=== PATIENT | female | born 1945 | race Caucasian/White ===

== ENCOUNTER 2019-06-30 11:43 | Emergency (ER) | payer MEDICARE ==
[~2019-06-30] VITALS: Ht 162.6 cm; Wt 62.1 kg
--- OUTSIDE RECORDS SUMMARY | ~2019-06-30 | XMS | Encounter Summary ---
Demographics + + + | Address | [address] | | | [place] [address] | + + + | Home Phone | | + + + | Preferred Language | Unknown | + + + | Marital Status | | + + + | Temple Affiliation | [id number] | + + + | Race | Unknown | + + + | Ethnic Group | Unknown | + + + Author + + + | Author | [facility] | | | and [place] | + + + | Organization | [facility] | | | and [place] | + + + | Address | Unknown | + + + | Phone | Unavailable | + + + Support + + +---------+ + | Name | Relationship | Address | Phone | + + +---------+ + | Loyd Mcnair | ECON | Unknown | | + + +---------+ + | Cecile Lemus | ECON | Unknown | | + + +---------+ + Care Team Providers + +------+ + | Care Jet Blade Polisher Name | Role | Phone | + +------+ + | Fabrice Hansen DO | PCP | | + +------+ + Encounter Details +--------+ + + + + | Date | Type | Department | Care Team | Description | +--------+ + + + + | 02/15/ | Orders Only | [facility] | Marshall Gutierrez, | | | 2015 | | CARDIOLOGY SACHIN | [address] | | | | | [address] | [place] [address] | | | | | [facility] | [phone] | | | | | [address] | | | | | | [phone] | | | +--------+ + + + + Social History + +-------+ +--------+------+ | Tobacco Use | Types | Packs/Day | Years | Date | | | | | Used | | + +-------+ +--------+------+ | Never Assessed | | | | | + +-------+ +--------+------+ + + + | Sex Assigned at | Date Recorded | | | | + + + | Not on file | | + + + + + + + | Job Start Date | Occupation | Industry | + + + + | Not on file | Not on file | Not on file | + + + + + + + + | Travel History | Travel Start | Travel End | + + + + + + | No recent travel history available. | + + documented as of this encounter Plan of Treatment +--------+---------+ + + + | Date | Type | Specialty | Care Team | Description | +--------+---------+ + + + | 07/18/ | Office | Cardiology | Erin Limon | | | 2019 | Visit | | [address] | | | | | | [address] | | | | | | [place] [address] | | | | | | [phone] | | | | | | | | +--------+---------+ + + + documented as of this encounter Procedures + +--------+ + + + | Procedure Name | Priori | Date/Time | Associated Diagnosis | Comments | | | ty | | | | + +--------+ + + + | ECHO COMPLETE | Routin | 02/15/2015 | | Results for this | | | e | 11:37 AM | | procedure are in the | | | | PST | | results section. | + +--------+ + + + documented in this encounter Results ECHO Complete (02/15/2015 11:37 AM PST) + + | Specimen | + + | | + + + + + | Impressions | Performed At | + + + | 1. Overall left ventricular systolic function is low-normal with, an | | | EF between 50 - 55 %. 2. The diastolic filling pattern indicates | | | impaired relaxation consistent with mild dysfunction (Grade I), which | | | is normal for the patient's age. 3. The ascending aorta is dilated | | | measuring up to 4.0cm. | | + + + + + + | Narrative | Performed At | + + + | Patient Name: PACHECO ELMUS Date of : 1945 | | | Performing Physician: Marshall Gutierrez MD, | | | FACC, FACP, FASNC | | | | | | INDICATIONS CAD, HTN, CABG x 3 CONCLUSIONS | | | 1. Overall left ventricular systolic function is | | | low-normal with, an EF between 50 - 55 %. 2. The diastolic filling | | | pattern indicates impaired relaxation consistent with mild dysfunction | | | (Grade I), which is normal for the patient's age. 3. The ascending | | | aorta is dilated measuring up to 4.0cm. FINDINGS -------- ECG | | | rhythm: Sinus rhythm with extra systolic beats. Study: A | | | 2-dimensional transthoracic echocardiogram with m-mode, spectral and | | | color flow Doppler was perfomed. Study: This was a technically | | | adequate study. Left Ventricle: Overall left ventricular systolic | | | function is low-normal with, an EF between 50 - 55 %. Left Ventricle: | | | The left ventricle cavity size is normal. Left Ventricle: Left | | | ventricular wall thickness is normal. Left Ventricle: There is mild | | | global hypokinesis of LV contractility. Left Ventricle: The diastolic | | | filling pattern indicates impaired relaxation consistent with mild | | | dysfunction (Grade I), which is normal for the patient's age. Left | | | Ventricle: The basal lateral wall appears hypokinetic. Right | | | Ventricle: The right ventricle is normal in size. Left Atrium: The | | | left atrium is normal in size. Right Atrium: The right atrium is | | | normal in size. Aortic Valve: The aortic valve is trileaflet and | | | appears structurally normal. Aortic Valve: Trace amount of aortic | | | regurgitation. Aortic Valve: There is no evidence of aortic stenosis. | | | Mitral Valve: The mitral valve is normal. Mitral Valve: There is | | | trace mitral regurgitation. Tricuspid Valve: The tricuspid valve | | | appears structurally normal. Tricuspid Valve: Trace tricuspid | | | regurgitation present. Tricuspid Valve: There is no evidence of | | | pulmonary hypertension. Tricuspid Valve: The right ventricular | | | systolic pressure (pulmonary artery systolic pressure), as measured by | | | Doppler, is 24.79mmHg. Pulmonic Valve: The pulmonic valve is normal. | | | Pulmonic Valve: Mild pulmonic regurgitation. Pericardium: There is | | | no pericardial effusion. IVC/Hepatic Veins: The IVC is normal size | | | (1.5-2.5cm) and collapses >50% with sniff, consistent with central | | | venous pressures of 5-10mmHg. Aorta: The ascending aorta is dilated | | | measuring up to 4.0cm. Mass: No mass visualized Thrombus: No clot | | | visualized Thrombus: No vegetation visualized. Septum: No ASD | | | observed. Septum: No VSD observed. MEASUREMENTS | | | Ao asc: 3.99 cm IVC: 1.61 cm LA Major: 4.45 cm EDV(Teich): | | | 137.16 ml IVSd: 0.84 cm LVIDd: 5.33 cm LVPWd: 0.71 cm | | | LVOT Area: 4.11 cm2 LVOT Diam: 2.28 cm %FS: 23.11 % | | | EF(Teich): 45.92 % ESV(Teich): 74.16 ml LVIDs: 4.09 cm | | | SV(Teich): 62.99 ml RA Major: 4.75 cm RVIDd: 2.66 cm LVEF | | | MOD A2C: 52.30 % SV MOD A2C: 37.22 ml LVEF MOD A4C: 49.25 % | | | SV MOD A4C: 43.26 ml EF Biplane: 50.31 % LVEDV MOD BP: | | | 79.22 ml LVESV MOD BP: 39.36 ml LVEDV MOD A2C: 71.16 ml LVLd | | | A2C: 7.03 cm LVEDV MOD A4C: 87.84 ml LVLd A4C: 7.12 cm | | | LVESV MOD A2C: 33.94 ml LVLs A2C: 6.33 cm LVESV MOD A4C: | | | 44.57 ml LVLs A4C: 6.38 cm LAESV(A-L): 45.89 ml LAESV Index | | | (A-L): 27.48 ml/m2 LAAs A2C: 14.95 cm2 LAESV A-L A2C: 41.36 | | | ml LALs A2C: 4.58 cm LAAs A4C: 16.21 cm2 LAESV A-L A4C: | | | 49.75 ml LALs A4C: 4.48 cm Ao Diam: 3.05 cm LA Diam: 3.08 | | | cm LA/Ao: 1.01 AV maxP.05 mmHg AV meanP.82 mmHg | | | AV Vmax: 1.41 m/s AV Vmean: 0.91 m/s AV VTI: 27.43 cm AVIVA | | | Vmax: 2.60 cm2 AVIVA (VTI): 2.72 cm2 LVOT maxP.22 mmHg | | | LVOT meanP.64 mmHg LVSI Dopp: 44.72 ml/m2 LVSV Dopp: | | | 74.69 ml LVOT Vmax: 0.89 m/s LVOT Vmean: 0.58 m/s LVOT VTI: | | | 18.15 cm IVRT: 117.64 ms MV A Zen: 0.70 m/s MV Dec Arroyo: | | | 2.68 m/s2 MV DecT: 211.45 ms MV E Zen: 0.56 m/s MV E/A | | | Ratio: 0.80 MV PHT: 61.32 ms MVA By PHT: 3.58 cm2 Septal | | | e': 0.04 m/s Septal E/e': 11.65 Lateral e': 0.08 m/s | | | Lateral E/e': 7.06 RAP: 5 mmHg RVSP: 24.78 mmHg TR maxPG: | | | 19.78 mmHg TR Vmax: 2.22 m/s Pbx Teacher: JOSY Authenticated | | | by: Marshall Gutierrez MD, FACC, FACP, FASFL Report Date/Time: | | | 02-19-2015 13:07:05 | | + + + + + | Procedure Note | + + | Jamie Kowalski Conversion - 09/30/2018 8:30 PM PDT Patient Name: Kailash LEMUS of | | : 1945 Performing Physician: Marshall Gutierrez MD, [facility], | | FACP, | | FASNC INDICATIONS--------- | | --CAD, HTN, CABG x 3 CONCLUSIONS 1. Overall left ventricular systolic function | | is low-normal with, an EF between 50 - 55 %.2. The diastolic filling pattern indicates | | impaired relaxation consistent with mild dysfunction (Grade I), which is normal for the | | patient's age.3. The ascending aorta is dilated measuring up to 4.0cm. | | FINDINGS--------ECG rhythm: Sinus rhythm with extra systolic beats.Study: A | | 2-dimensional transthoracic echocardiogram with m-mode, spectral and color flow Doppler | | was perfomed.Study: This was a technically adequate study.Left Ventricle: Overall left | | ventricular systolic function is low-normal with, an EF between 50 - 55 %.Left | | Ventricle: The left ventricle cavity size is normal.Left Ventricle: Left ventricular | | wall thickness is normal.Left Ventricle: There is mild global hypokinesis of LV | | contractility.Left Ventricle: The diastolic filling pattern indicates impaired | | relaxation consistent with mild dysfunction (Grade I), which is normal for the patient's | | age.Left Ventricle: The basal lateral wall appears hypokinetic.Right Ventricle: The | | right ventricle is normal in size.Left Atrium: The left atrium is normal in size.Right | | Atrium: The right atrium is normal in size.Aortic Valve: The aortic valve is trileaflet | | and appears structurally normal.Aortic Valve: Trace amount of aortic | | regurgitation.Aortic Valve: There is no evidence of aortic stenosis.Mitral Valve: The | | mitral valve is normal.Mitral Valve: There is trace mitral regurgitation.Tricuspid | | Valve: The tricuspid valve appears structurally normal.Tricuspid Valve: Trace tricuspid | | regurgitation present.Tricuspid Valve: There is no evidence of pulmonary | | hypertension.Tricuspid Valve: The right ventricular systolic pressure (pulmonary artery | | systolic pressure), as measured by Doppler, is 24.79mmHg.Pulmonic Valve: The pulmonic | | valve is normal.Pulmonic Valve: Mild pulmonic regurgitation.Pericardium: There is no | | pericardial effusion.IVC/Hepatic Veins: The IVC is normal size (1.5-2.5cm) and collapses | | >50% with sniff, consistent with central venous pressures of 5-10mmHg.Aorta: The | | ascending aorta is dilated measuring up to 4.0cm.Mass: No mass visualizedThrombus: No | | clot visualizedThrombus: No vegetation visualized.Septum: No ASD observed.Septum: No VSD | | observed. MEASUREMENTS Ao asc: 3.99 cmIVC: 1.61 cmLA Major: 4.45 | | cmEDV(Teich): 137.16 mlIVSd: 0.84 cmLVIDd: 5.33 cmLVPWd: 0.71 cmLVOT Area: | | 4.11 [id number] Diam: 2.28 cm%FS: 23.11 %EF(Teich): 45.92 %ESV(Teich): 74.16 | | mlLVIDs: 4.09 cmSV(Teich): 62.99 mlRA Major: 4.75 cmRVIDd: 2.66 cmLVEF MOD A2C: | | 52.30 %SV MOD A2C: 37.22 mlLVEF MOD A4C: 49.25 %SV MOD A4C: 43.26 mlEF Biplane: | | 50.31 %LVEDV MOD BP: 79.22 mlLVESV MOD BP: 39.36 mlLVEDV MOD A2C: 71.16 mlLVLd | | A2C: 7.03 cmLVEDV MOD A4C: 87.84 mlLVLd A4C: 7.12 cmLVESV MOD A2C: 33.94 mlLVLs | | A2C: 6.33 cmLVESV MOD A4C: 44.57 mlLVLs A4C: 6.38 cmLAESV(A-L): 45.89 mlLAESV | | Index (A-L): 27.48 ml/m2LAAs A2C: 14.95 [id number] A-L A2C: 41.36 mlLALs A2C: 4.58 | | cmLAAs A4C: 16.21 [id number] A-L A4C: 49.75 mlLALs A4C: 4.48 cmAo Diam: 3.05 cmLA | | Diam: 3.08 cmLA/Ao: 1.01AV maxP.05 mmHgAV meanP.82 mmHgAV Vmax: 1.41 | | m/Yamila Vmean: 0.91 m/Yamila VTI: 27.43 cmAVA Vmax: 2.60 cm2AVA (VTI): 2.72 [id number] | | maxP.22 mmHgLVOT meanP.64 mmHgLVSI Dopp: 44.72 ml/m2LVSV Dopp: 74.69 | | mlLVOT Vmax: 0.89 m/sLVOT Vmean: 0.58 m/sLVOT VTI: 18.15 cmIVRT: 117.64 msMV A | | Zen: 0.70 m/sMV Dec Arroyo: 2.68 m/s2MV DecT: 211.45 msMV E Zen: 0.56 m/sMV E/A | | Ratio: 0.80MV PHT: 61.32 msMVA By PHT: 3.58 kw2Wfysay e': 0.04 m/sSeptal E/e': | | 11.65Lateral e': 0.08 m/sLateral E/e': 7.06RAP: 5 mmHgRVSP: 24.78 mmHgTR maxPG: | | 19.78 mmHgTR Vmax: 2.22 m/s Pbx Teacher: DHAuthenticated by: Marshall Gutierrez MD, | | FACC, FACP, FASNCReport Date/Time: 02-19-2015 13:07:05 IMPRESSION: 1. Overall left | | ventricular systolic function is low-normal with, an EF between 50 - 55 %.2. The | | diastolic filling pattern indicates impaired relaxation consistent with mild dysfunction | | (Grade I), which is normal for the patient's age.3. The ascending aorta is dilated | | measuring up to 4.0cm. | |Ao asc: 3.99 cm | |IVC: 1.61 cm | |LA Major: 4.45 cm | |EDV(Teich): 137.16 ml | |IVSd: 0.84 cm | |LVIDd: 5.33 cm | |LVPWd: 0.71 cm | |LVOT Area: 4.11 cm2 | |LVOT Diam: 2.28 cm | |%FS: 23.11 % | |EF(Teich): 45.92 % | |ESV(Teich): 74.16 ml | |LVIDs: 4.09 cm | |SV(Teich): 62.99 ml | |RA Major: 4.75 cm | |RVIDd: 2.66 cm | |LVEF MOD A2C: 52.30 % | |SV MOD A2C: 37.22 ml | |LVEF MOD A4C: 49.25 % | |SV MOD A4C: 43.26 ml | |EF Biplane: 50.31 % | |LVEDV MOD BP: 79.22 ml | |LVESV MOD BP: 39.36 ml | |LVEDV MOD A2C: 71.16 ml | |LVLd A2C: 7.03 cm | |LVEDV MOD A4C: 87.84 ml | |LVLd A4C: 7.12 cm | |LVESV MOD A2C: 33.94 ml | |LVLs A2C: 6.33 cm | |LVESV MOD A4C: 44.57 ml | |LVLs A4C: 6.38 cm | |LAESV(A-L): 45.89 ml | |LAESV Index (A-L): 27.48 ml/m2 | |LAAs A2C: 14.95 cm2 | |LAESV A-L A2C: 41.36 ml | |LALs A2C: 4.58 cm | |LAAs A4C: 16.21 cm2 | |LAESV A-L A4C: 49.75 ml | |LALs A4C: 4.48 cm | |Ao Diam: 3.05 cm | |LA Diam: 3.08 cm | |LA/Ao: 1.01 | |AV maxP.05 mmHg | |AV meanP.82 mmHg | |AV Vmax: 1.41 m/s | |AV Vmean: 0.91 m/s | |AV VTI: 27.43 cm | |AVIVA Vmax: 2.60 cm2 | |AVIVA (VTI): 2.72 cm2 | |LVOT maxP.22 mmHg | |LVOT meanP.64 mmHg | |LVSI Dopp: 44.72 ml/m2 | |LVSV Dopp: 74.69 ml | |LVOT Vmax: 0.89 m/s | |LVOT Vmean: 0.58 m/s | |LVOT VTI: 18.15 cm | |IVRT: 117.64 ms | |MV A Zen: 0.70 m/s | |MV Dec Arroyo: 2.68 m/s2 | |MV DecT: 211.45 ms | |MV E Zen: 0.56 m/s | |MV E/A Ratio: 0.80 | |MV PHT: 61.32 ms | |MVA By PHT: 3.58 cm2 | |Septal e': 0.04 m/s | |Septal E/e': 11.65 | |Lateral e': 0.08 m/s | |Lateral E/e': 7.06 | |RAP: 5 mmHg | |RVSP: 24.78 mmHg | |TR maxP.78 mmHg | |TR Vmax: 2.22 m/s | | | |Pbx Teacher: | |Authenticated by: Marshall Gutierrez MD, FACC, FACP, FASYVROSE | |Report Date/Time: 02-19-2015 13:07:05 | | | |IMPRESSION: | |1. Overall left ventricular systolic function is low-normal with, an EF between 50 - 55 %. | |2. The diastolic filling pattern indicates impaired relaxation consistent with mild dysfunc tion (Grade I), which is normal for the patient's age. | |3. The ascending aorta is dilated measuring up to 4.0cm. | + + documented in this encounter Visit Diagnoses Not on filedocumented in this encounter"
--- OUTSIDE RECORDS SUMMARY | ~2019-06-30 | XMS | Encounter Summary ---
Demographics + + + | Address | [address] | | | [place] [address] | + + + | Home Phone | | + + + | Preferred Language | Unknown | + + + | Marital Status | | + + + | Taoism Affiliation | 1041 | + + + | Race | Unknown | + + + | Ethnic Group | Unknown | + + + Author + + + | Author | [facility] | | | and [place] | + + + | Organization | [facility] | | | and [place] | + + + | Address | Unknown | + + + | Phone | Unavailable | + + + Support + + +---------+ + | Name | Relationship | Address | Phone | + + +---------+ + | Loyd Mcnair | ECON | Unknown | | + + +---------+ + | Cecile Way | ECON | Unknown | | + + +---------+ + Care Team Providers + +------+ + | Care Candle Molder Hand Name | Role | Phone | + +------+ + | Fabrice Hansen DO | PCP | | + +------+ + Reason for Referral Evaluate & Treat (Routine) + + + + + + + | Status | Reason | Specialty | Diagnoses / | Referred By | Referred To | | | | | Procedures | Contact | Contact | + + + + + + + | Pending | Specialty | Liver and | Diagnoses | Tammi, | Tom Limon | | Review | Services | Pancreas | | MD Jason | MD Carly [address] | | | Required | Surgery | Intrahepatic | [address] [place] | | | | | bile duct | [address] [place] [address] | [address] | | | | | stones | [place], | [place] | | | | | Procedures | [place] [address] | [address] Phone: | | | | | [employer] | Phone: | [phone] | | | | | | [phone] | Fax: | | | | | | Fax: | [phone] | | | | | | [phone] | | + + + + + + + Reason for Visit Auth/Cert +--------+--------+ + + + + | Status | Reason | Specialty | Diagnoses / | Referred By | Referred To | | | | | Procedures | Contact | Contact | +--------+--------+ + + + + | | | | Diagnoses | | Serrao, | | | | | Calculus of | | MD Bacilio | | | | | bile duct | | [address] | | | | | with | | [place] [address] | | | | | cholangitis | | [place] | | | | | and | | [address] Phone: | | | | | obstruction, | | [phone] | | | | | unspecified | | Fax: | | | | | cholangitis | | [phone] | | | | | acuity | | | | | | | Intrahepatic | | | | | | | bile duct | | | | | | | dilation | | | | | | | Calculus of | | | | | | | bile duct | | | | | | | with | | | | | | | cholangitis | | | | | | | and | | | | | | | obstruction, | | | | | | | unspecified | | | | | | | cholangitis | | | | | | | acuity | | | | | | | [K80.31]Intr | | | | | | | ahepatic | | | | | | | bile duct | | | | | | | dilation | | | | | | | [K83.8] | | | | | | | Procedures | | | | | | | ME ERCP DX | | | | | | | COLLECTION | | | | | | | SPECIMEN | | | | | | | BRUSHING/WAS | | | | | | | THALIA ME | | | | | | | ANESTHESIA | | | | | | | UPPER GI | | | | | | | ENDOSCOPIC | | | | | | | PX NOS | | | | | | | ENDOSCOPIC | | | | | | | RETROGRADE | | | | | | | CHOLANGIOPAN | | | | | | | REATOG | | | +--------+--------+ + + + + Encounter Details +--------+ + + + + | Date | Type | Department | Care Team | Description | +--------+ + + + + | 12/31/ | Hospital | [facility] | Jason Cadena MD | Intrahepatic bile | | 2019 - | Encounter | [facility] | [address] [place] | duct stones (Primary | | | | NEPHROLOGY [address] | [address] [place] | Dx); Intrahepatic | | 01/01/ | | [address] [place] | [address] | bile duct dilation; | | 2019 | | [address] | | Calculus of bile | | | | [phone] | Arminda Cruz MD | duct with | | | | | [address] | cholangitis and | | | | | [address] [place] | obstruction, | | | | | [address] | unspecified | | | | | | cholangitis acuity; | | | | | Robbie Ho MD | Chronic obstructive | | | | | [address] | pulmonary disease, | | | | | [address] [place] | unspecified COPD | | | | | [address] | type (HCC); Coronary | | | | | | artery disease | | | | | | involving council | | | | | | coronary artery of | | | | | | council heart, angina | | | | | | presence | | | | | | unspecified | +--------+ + + + + Social History + + + +--------+------+ | Tobacco Use | Types | Packs/Day | Years | Date | | | | | Used | | + + + +--------+------+ | Current Every Day | Cigarettes | 0.5 | 25 | | | Smoker | | | | | + + + +--------+------+ + +---+---+---+ | Smokeless Tobacco: | | | | | Never Used | | | | + +---+---+---+ + + +---------+ + | Alcohol Use | Drinks/Week | oz/Week | Comments | + + +---------+ + | Yes | 3 Glasses of wine | 3.0 | | + + +---------+ + + + + | Sex Assigned at [...] + + documented as of this encounter Last Filed Vital Signs + + + + + | Vital Sign | Reading | Time Taken | Comments | + + + + + | Blood Pressure | 101/62 | 01/01/2019 8:00 AM | | | | | PST | | + + + + + | Pulse | 53 | 01/01/2019 8:00 AM | | | | | PST | | + + + + + | Temperature | 36.8 C (98.2 F) | 01/01/2019 8:00 AM | | | | | PST | | + + + + + | Respiratory Rate | 16 | 01/01/2019 8:00 AM | | | | | PST | | + + + + + | Oxygen Saturation | 98% | 01/01/2019 8:00 AM | | | | | PST | | + + + + + | Inhaled Oxygen | - | - | | | Concentration | | | | + + + + + | Weight | 60.6 kg (133 lb 9.6 | 12/31/2018 7:29 AM | | | | oz) | PST | | + + + + + | Height | 162.6 cm (5' 4") | 12/31/2018 7:29 AM | | | | | PST | | + + + + + | Body Mass Index | 22.93 | 12/31/2018 7:29 AM | | | | | PST | | + + + + + documented in this encounter Discharge Summaries Robbie Ho MD - 01/01/2019 12:16 PM PST [facility] Patient: Sharon Way Date of : 1945 PCP: Fabrice Hansen DO Admit Date: 12/31/2018 Discharge Date: 01/01/2019 Date of Service: 01/01/2019 Issues Requiring Follow Up after Discharge: Needs follow up with - hepatobiliary surgeon Follow Up Appointments: Fabrice Hansen DO [address] [facility] [address] [facility] [address] Call As needed Tom Limon MD [address], [place] [address] [facility] [phone] Schedule an appointment as soon as possible for a visit in 2 weeks Discharge Disposition: Home Consultants This Admission: [facility] Course: Sharon Way is a 73 y.o. female with a history of CAD, COPD, who had ERCP with stent placed 11/09/18 for choledocholithiasis. Her postprocedure course was complicated by cholan gitis. She is again admitted on 12/31/2018 following ERCP with stent removal. Pt is feeling better. She will going home today and she will follow up with for partial liver res ection Discharge Diagnoses: 1. Calculus of bile duct with cholangitis/obstruction: Status post stent removal by Dr. Phoebe cerda with stone removal using balloon sweep. There is still one more branch of left intrahep atic biliary ducts with stones and a tight stricture that could not be cannulated so patient will need a referral to Dr. Limon for possible left hepatectomy. -She is tolerating full diet. She will continue ciprofloxacin for lunch at this prophylaxi s. COPD/CAD: stable. Active Hospital Problems Diagnosis Calculus of bile duct with cholangitis and obstruction, unspecified cholangitis acuity Intrahepatic bile duct dilation COPD CAD (coronary artery disease) Resolved Hospital Problems No resolved problems to display. Discharge Exam: Temp: [35.9 C (96.6 F)-36.8 C (98.2 F)] 36.8 C (98.2 F) Pulse: [53-70] 53 Resp: [16] 16 BP: (101-119)/(52-73) 101/62 SpO2: 98 % on room air Physical Exam General: Afebrile, not in respir Neck: Normal range of motion; no thyromegaly or tenderness. No JVD. Lymphatic: No cervical or supraclavicular adenopathy appreciated. Cardiovascular: S1, S2 normal. No S3,S3 or gallops. No murmurs. Thorax & Lungs: lungs clear to auscultation. Abdomen: Soft, non-tender. Extremities: No peripheral edema. Skin: Clean, warm, dry. Neurologic: Hearing and vision both grossly intact. Discharge Medications: Discharge Medications New Medications Details ciprofloxacin 500 mg tablet Take 1 tablet by mouth 2 times daily for 5 days. aka: CIPRO HYDROcodone-acetaminophen 5-325 mg per tablet Take 1 tablet by mouth every 6 hours as needed for Pain for up to 3 days. aka: NORCO Unchanged Medications Details acetaminophen 500 mg tablet Take 500 mg by mouth every 6 hours as needed for Pain. aka: TYLENOL albuterol 90 mcg/puff inhaler Inhale 2 puffs into the lungs every 6 hours as needed for Wheezing. aspirin 81 mg chewable tablet Take 81 mg by mouth daily with breakfast. atorvaSTATin 40 mg tablet Take 40 mg by mouth Daily. aka: LIPITOR fluticasone 50 mcg/nasal spray 1 spray by Nasal route Twice daily as needed for Allergies. aka: FLONASE levothyroxine 50 mcg tablet Take 50 mcg by mouth every morning (before breakfast). aka: SYNTHROID lisinopril 10 mg tablet Take 10 mg by mouth Daily. aka: PRINIVIL, ZESTRIL nitroglycerin 0.[address] 0.4 mg under the tongue every 5 minutes as needed for Chest pain. aka: NITROSTAT pantoprazole 40 mg tablet Take 40 mg by mouth every morning (before breakfast). aka: PROTONIX traZODone 150 MG tablet Take 75-150 mg by mouth nightly. Mostly takes 75 mg aka: DESYREL triamcinolone 0.025% ointment Apply 0.025 Units topically as needed for Rash. aka: KENALOG venlafaxine 75 MG tablet Take 225 mg by mouth Daily. aka: EFFEXOR Procedures Performed This Admission: ERCP by Dr. Cadena: Impression: 1. Choledocholithiasis status post removal using balloon sweeps 2. Successful stent removal 3. Direct cholangioscopy showed normal right intrahepatic ducts and most of the left intrahepatics ducts except for one branch with stones with a tight stricture at 90 degree angulation from the intrahepatic duct branch, therefore cholangioscope all wire cannulation cannot be performed Pertinent Lab and Imaging Results: Chemistry: Lab Results Component Value Date NA 140 01/01/2019 K 3.9 01/01/2019 CL 105 01/01/2019 CO2 25 01/01/2019 GLU 100 (H) 01/01/2019 ANIONGAP 10 01/01/2019 BUN 15 01/01/2019 CREA 0.66 01/01/2019 CALCIUM 8.9 01/01/2019 Lipids: Lab Results Component Value Date CHOL 152 12/28/2018 TRIG 115 12/28/2018 HDL 47 12/28/2018 LDL 82 12/28/2018 Hematology: Lab Results Component Value Date ALBUMIN 3.6 01/01/2019 EGFR 89 (L) 01/01/2019 WBC 8.35 01/01/2019 RBC 3.43 (L) 01/01/2019 HGB 11.2 (L) 01/01/2019 HCT 33.3 (L) 01/01/2019 MCV 97.1 01/01/2019 MCH 32.7 01/01/2019 MCHC 33.6 01/01/2019 PLT 227 01/01/2019 Immunology/ Serology: No results found for: CMVIGG, EBVVCAIGG, EBVVCAIGM, EBVIGGEARLY, EBVNUCAG, HSVIIGGTS, HSVII TS, HSVIGMAB Urinary Analysis: Lab Results Component Value Date CLARITYUA CLEAR 11/16/2018 GLUCOSEU NEGATIVE 11/16/2018 NITRITEUA NEGATIVE 11/16/2018 WBCUA 0-2 11/16/2018 RBCUA 3-5 11/16/2018 BACTERIAUA NONE SEEN 11/16/2018 SQUAMEPIUA 6-10 11/16/2018 MUCUSUA 1+ 11/16/2018 Condition at Discharge: Fair Time Spent on Discharge: less than 30 minutes Electronically signed by: Robbie Ho MD 01/01/2019 12:16 PM Portions of this chart may have been created with trinket voice recognition software. Occasi onal wrong-word or sound-alike substitutions may have occurred due to the inherent conroy itations of voice recognition software. Please read the chart carefully and recognize, using context, where these substitutions have occurred documented in this enc ounter Discharge Instructions Instructions Robbie Ho MD - 01/01/2019Please follow up with your PCP in a week. You will be called with appointment with next week. If you do not hear from them phoebe holder call [phone]. Return to ER if symtopms get worse. documented in this encounter Medications at Time of Discharge + + + +---------+ + + | Medication | Sig | Dispensed | Refills | Start | End Date | | | | | | Date | | + + + +---------+ + + | acetaminophen | Take 500 mg by mouth | | 0 | | | | (TYLENOL) 500 mg | every 6 hours as | | | | | | tablet | needed for Pain. | | | | | + + + +---------+ + + | albuterol 90 | Inhale 2 puffs into | | 0 | | | | mcg/puff inhaler | the lungs every 6 | | | | | | | hours as needed for | | | | | | | Wheezing. | | | | | + + + +---------+ + + | aspirin 81 mg | Take 81 mg by mouth | | 0 | 09/29/19 | | | chewable tablet | daily with | | | 13 | | | | breakfast. | | | | | + + + +---------+ + + | fluticasone | 1 spray by Nasal | | 0 | | | | (FLONASE) 50 | route Twice daily | | | | | | mcg/nasal spray | as needed for | | | | | | | Allergies. | | | | | + + + +---------+ + + | lisinopril | Take 10 mg by mouth | | 0 | 06/02/19 | | | (PRINIVIL, ZESTRIL) | Daily. | | | 19 | | | 10 mg tablet | | | | | | + + + +---------+ + + | nitroglycerin | Place 0.4 mg under | | 0 | 12/09/19 | | | (NITROSTAT) 0.4 mg | the tongue every 5 | | | 18 | | | SL tablet | minutes as needed | | | | | | | for Chest pain. | | | | | + + + +---------+ + + | traZODone | Take 75-150 mg by | | 0 | 07/27/19 | | | (DESYREL) 150 MG | mouth nightly. | | | 19 | | | tablet | Mostly takes 75 mg | | | | | + + + +---------+ + + | triamcinolone | Apply 0.025 Units | | 0 | 12/09/19 | | | (KENALOG) 0.025% | topically as needed | | | 18 | | | ointment | for Rash. | | | | | + + + +---------+ + + | atorvaSTATin | Take 40 mg by mouth | | 0 | 09/12/19 | | | (LIPITOR) 40 mg | Daily. | | | 19 | 0 | | tablet | | | | | | + + + +---------+ + + | ciprofloxacin | Take 1 tablet by | 10 | 0 | 01/01/20 | | | (CIPRO) 500 mg | mouth 2 times daily | tablet | | 19 | 9 | | tablet | for 5 days. | | | | | + + + +---------+ + + | | Take 1 tablet by | 12 | 0 | 01/01/20 | | | HYDROcodone-acetamin | mouth every 6 hours | tablet | | 19 | 9 | | ophen (NORCO) 5-325 | as needed for Pain | | | | | | mg per tablet | for up to 3 days. | | | | | + + + +---------+ + + | levothyroxine | Take 50 mcg by mouth | | 0 | | | | (SYNTHROID) 50 mcg | every morning | | | | 0 | | tablet | (before breakfast). | | | | | + + + +---------+ + + | pantoprazole | Take 40 mg by mouth | | 0 | | | | (PROTONIX) 40 mg | every morning | | | | 0 | | tablet | (before breakfast). | | | | | + + + +---------+ + + | venlafaxine | Take 225 mg by mouth | | 0 | 08/05/19 | | | (EFFEXOR) 75 MG | Daily. | | | 19 | 0 | | tablet | | | | | | + + + +---------+ + + documented as of this encounter Progress Notes Cecile Vargas RN - 12/31/2018 11:17 PM PSTA&OX4, admitted due for ERCP with stent removal. Here for pain control. Tolerating clear liquid diet. PRN dilaudid 0.25mg X1 for epigastric pain. Denies nausea. RT PIV, SL. Up with SBA with cane. VSS. Will continue to monitor.Electr onically signed by Cecile Noel RN at 12/31/2018 11:19 PM Belinda Best, Nursing Stude nt - 12/31/2018 6:39 PM PSTAssumed care of patient at 1600. A/O X4. ERCP preformed, 4 stone s and common bile duct stent removed. Patient was to be discharged home but dilaudid was not controlling pain. Currently no complaints of being light headed or nauseous and pain is man aged. Med locked. SBA, uses cane at home. Significant other was attentive at bedside. Now s tracee at the [facility]. Electronically signed by: Belinda Galan, Traffic Incident Management Manager 12/31 6:47 PM Sara Lloyd RN - 12/31/2018 4:45 PM PSTAdmission screen completed by Brigitte MORIN. Report handoff given to MIKEL Bates. Brigitte RN has completed admission flow sheet except for shift assessment, fall risk, stacie assessment. Information for admission documentation was received from the patient. 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 She has some issues getting up the one stai r into her home due to hip pain and she recently started using a single point cane. She repo rts that she is independent with all ADL's. She lives with her and feels like most o f her needs are met except for some basic housekeeping things. She is wanting to quit smokin g but it is "too expensive" per the pt. Her , Loyd, has already picked up discharge p rescriptions. She normally uses partial dentures that she left at home. documented in this encounter Plan of Treatment +--------+---------+ + + + | Date | Type | Specialty | Care Team | Description | +--------+---------+ + + + | 07/18/ | Office | Cardiology | Erin Limon | | | 2019 | Visit | | [facility] [address] | | | | | | [address] | | | | | | [place] [address] | | | | | | [phone] | | | | | | | | +--------+---------+ + + + + + +--------+ + + | Name | Type | Priori | Associated Diagnoses | Order Schedule | | | | ty | | | + + +--------+ + + | * [facility] [place] Liver and | Outpatient | Routin | Intrahepatic bile | Ordered: 12/31/2018 | | Pancreas Surgery - | Referral | e | duct stones | | | Limon Referral | | | | | + + +--------+ + + documented as of this encounter Procedures + +--------+ + + + | Procedure Name | Priori | Date/Time | Associated Diagnosis | Comments | | | ty | | | | + +--------+ + + + | CBC WITH | Routin | 01/01/2019 | | Results for this | | DIFFERENTIAL | e | 4:47 AM | | procedure are in the | | | | PST | | results section. | + +--------+ + + + | COMPREHENSIVE | Routin | 01/01/2019 | | Results for this | | METABOLIC PANEL | e | 4:47 AM | | procedure are in the | | | | PST | | results section. | + +--------+ + + + | FL ERCP BILIARY ONLY | Routin | 12/31/2018 | Calculus of bile | Results for this | | | e | 9:46 AM | duct with | procedure are in the | | | | PST | cholangitis and | results section. | | | | | obstruction, | | | | | | unspecified | | | | | | cholangitis acuity | | + +--------+ + + + | ME ERCP DX | Routin | 12/31/2018 | | Results for this | | COLLECTION SPECIMEN | e | 8:54 AM | | procedure are in the | | BRUSHING/WASHING | | PST | | results section. | + +--------+ + + + | ENDOSCOPIC | | 12/31/2018 | Calculus of bile | | | RETROGRADE | | 8:46 AM | duct with | | | CHOLANGIOPANREATOG | | PST | cholangitis and | | | | | | obstruction, | | | | | | unspecified | | | | | | cholangitis acuity | | | | | | Intrahepatic bile | | | | | | duct dilation | | + +--------+ + + + +---+--------+ | | | | | Specia | | | l | | | Needs | | | RAD, | | | [place] | +---+--------+ + +--------+ +---+ + | POC GLUCOSE | Routin | 12/31/2018 | | Results for this | | | e | 7:40 AM | | procedure are in the | | | | PST | | results section. | + +--------+ +---+ + documented in this encounter Results Comprehensive Metabolic Panel (01/01/2019 4:47 AM PST) + + + + + + | Component | Value | Ref Range | Performed | Pathologist | | | | | At | Signature | + + + + + + | Na | 140 | 135 - 145 | [facility] | | | | | mmol/L | [facility] | | | | | [facility] | | | | | | [facility] | | | | | | [facility] | | | | | | LABORATORY | | | | | | [facility] | | + + + + + + | K | 3.9 | 3.5 - 5.0 | [facility] | | | | | mmol/L | [facility] | | | | | | [facility] | | | | | | [facility] | | | | | | C[facility] | | | | | | LABORATORY | | | | | | [facility] | | + + + + + + | Cl | 105 | 99 - 109 mmol/L | [facility] | | | | | | [facility] | | | | | [facility] | | | | | | [facility] | | | | | | C[facility] | | | | | | LABORATORY | | | | | | [facility] | | + + + + + + | CO2 | 25 | 21 - 28 mmol/L | [facility] | | | | | | [facility] | | | | | [facility] | | | | | | [facility] | | | | | | CENTER | | | | | | LABORATORY | | | | | | [facility] | | + + + + + + | Calcium | 8.9 | 8.5 - 10.2 | [facility] | | | | | mg/dL | [facility] | | | | | | [facility] | | | | | | [facility] | | | | | | CENTER | | | | | | LABORATORY | | | | | | [facility] | | + + + + + + | Anion Gap | 10 | 5 - 16 mmol/L | [facility] | | | | | | [facility] | [facility] | [facility] | | | | | | [facility] | | | | | | [facility] | | | | | | LABORATORY | | | | | | [facility] | | + + + + + + | Albumin | 3.6 | 3.3 - 4.8 g/dL | [facility] | | | | | | [facility] | | [facility] | | [facility] | | | | | | [facility] | | | | | | CENTER | | | | | | LABORATORY | | | | | | [facility] | | + + + + + + | BUN | 15 | 8 - 25 mg/dL | [facility] | | | | | | [facility] | | [facility] | | [facility] | | | | | | [facility] | | | | | | [facility] | | | | | | LABORATORY | | | | | | [facility] | | + + + + + + | Creatinine | 0.66 | 0.50 - 1.00 | [facility] | | | | | mg/dL | [facility] | | | | | [facility] | | | | | | [facility] | | | | | | CENTER | | | | | | LABORATORY | | | | | | [facility] | | + + + + + + | Glucose | 100 (H) | 65 - 99 mg/dL | [facility] | | | | [facility] | [facility] | [facility] | | | | | | [facility] | | | | | | CENTER | | | | | | LABORATORY | | | | | | [facility] | | + + + + + + | Total | 5.3 (L) | 6.1 - 7.8 g/dL | [facility] | | | Protein | | | [facility] | | | | | | [facility] | | | | | | [facility] | | | | | | CENTER | | | | | | LABORATORY | | | | | | [facility] | | + + + + + + | Alkaline | 92 | 35 - 115 U/L | [facility] | | | Phosphatase | | | [facility] | | | | | | [facility] | | | | | | MED[facility] | | | | | | CENTER | | | | | | LABORATORY | | | | | | [facility] | | + + + + + + | ALT | 25 | 10 - 65 U/L | [facility] | | | | | | [facility] | | | | | | [facility] | | | | | | [facility] | | | | | | CENTER | | | | | | LABORATORY | | | | | | [facility] | | + + + + + + | AST | 12 | 10 - 45 U/L | [facility] | | | | | | [facility] | | | | | | [facility] | | | | | | MEDICAL | | | | | | CENTER | | | | | | LABORATORY | | | | | | [facility] | | + + + + + + | Bilirubin | 0.7 | 0.2 - 1.1 mg/dL | [facility] | | | Total | | | [facility] | | | | | | [facility] | | | | | | MEDICAL | | | | | | CENTER | | | | | | LABORATORY | | | | | | [facility] | | + + + + + + | Estimated | 89 (L)Comment: eGFR<60 | >=90 | [facility] | | | GFR | consistent with impaired | mL/min/1.73m2 | [facility] | | | | kidney function.For | | HEART | | | | [place], | | MEDICAL | | | | multiply the calculated | | CENTER | | | | GFR by 1.210Performed by | | LABORATORY | | | | [facility] [address], | | [place] | | | | [place] [address] | | | | + + + + + + + + | Specimen | + + | Blood specimen | | (specimen) | + + + + + + + | Performing | Address | City/State/Zipcode | Phone Number | | Organization | | | | + + + + + | [facility] | [address] | [place] [address] | | | [facility] | | | | | LABORATORY [facility] | | | | + + + + + CBC with Differential (01/01/2019 4:47 AM PST) + + + +------- ------+ + | Component | Value | Ref Range | Perfor med | Pathologist | | | | | At | Signature | + + + +------- ------+ + | WBC | 8.35 | 3.80 - 11.00 | [facility] | | | | | K/uL | [facility] | | | | | | [facility] | | | | | | [facility]ICA [facility] | | | | | | CENTER | | | | | | [place] | | | | | | [facility] | | + + + +------- ------+ + | RBC | 3.43 (L) | 3.70 - 5.10 | [facility] | | | | | M/uL | [facility] | | | | | | [facility] | | | | | | [facility]ICA [facility] | | | | | | CENTER | | | | | | LABORA TORY | | | | | | [place] | | + + + +------- ------+ + | Hemoglobin | 11.2 (L) | 11.3 - 15.5 | [facility] | | | | | g/dL | [facility] | | | | | | [facility] | | | | | | [facility] | | | | | | CENTER | | | | | | LABORA TORY | | | | | | [facility] | | + + + +------- ------+ + | Hct | 33.3 (L) | 34.0 - 46.0 % | [facility] | | | | | | [facility] | | | | | | [facility] | | | | | | [facility] | | | | | | CENTER | | | | | | LABORA TORY | | | | | | [facility] | | + + + +------- ------+ + | MCV | 97.1 | 80.0 - 100.0 fL | [facility] | | | | | | [facility] | | | | | | [facility] | | | | | | [facility] | | | | | | CENTER | | | | | | LABORA TORY | | | | | | [facility] | | + + + +------- ------+ + | MCH | 32.7 | 27.0 - 34.0 pg | [facility] | | | | | | [facility] | | | | | | [facility] | | | | | | [facility] | | | | | | CENTER | | | | | | LABORA TORY | | | | | | [facility] | | + + + +------- ------+ + | MCHC | 33.6 | 32.0 - 35.5 | [facility] | | | | | g/dL | [facility] | | | | | | [facility] | | | | | | [facility]ICA [facility] | | | | | | CENTER | | | | | | LABORA TORY | | | | | | [facility] | | + + + +------- ------+ + | RDW-CV | 12.3 | 11.0 - 15.5 % | [facility] | | | | | | [facility] | | | | | | [facility] | | | | | | MEDICA [facility] | | | | | | CENTER | | | | | | LABORA TORY | | | | | | [facility] | | + + + +------- ------+ + | Platelet | 227 | 150 - 400 K/uL | [facility] | | | Count | | | [facility] | | | | | | [facility] | | | | | | [facility]ICA [facility] | | | | | | CENTER | | | | | | LABORA TORY | | | | | | [facility] | | + + + +------- ------+ + | MPV | 11.2 | 9.3 - 12.7 fL | [facility] | | | | | | [facility] | | | | | | [facility] | | | | | | [facility] | | | | | | CENTER | | | | | | LABORA TORY | | | | | | CERNER | | + + + +------- ------+ + | % | 72.4 | 40.0 - 75.0 % | [facility] | | | Neutrophils | | | [facility] | | | | | | [facility] | | | | | | [facility] | | | | | | LABORA TORY | | | | | | [facility] | | + + + +------- ------+ + | % | 20.7 | 15.0 - 48.0 % | [facility] | | | Lymphocytes | | | [facility] | | | | | | [facility] | | | | | | [facility] | | | | | | LABORA TORY | | | | | | [facility] | | + + + +------- ------+ + | % Monocytes | 6.2 | 0.0 - 12.0 % | [facility] | | [facility] | | | | | | [facility] | | | | | | [facility] | | | | | | CENTER | | | | | | LABORA TORY | | | | | | C[facility] | | + + + +------- ------+ + | % | 0.1 | 0.0 - 7.0 % | [facility] | | | Eosinophils | | | [facility] | | | | | | HEART | | | | | | [facility] | | | | | | CENTER | | | | | | LABORA TORY | | | | | | [facility] | | + + + +------- ------+ + | % Basophils | 0.2 | 0.0 - 2.0 % | [facility] | | | | | | [facility] | | | | | | HEART | | | | | | [facility] | | | | | | CENTER | | | | | | LABORA TORY | | | | | | [facility] | | + + + +------- ------+ + | % Immature | 0.4Comment: Immature | 0.0 - 1.0 % | [facility] | | | Granulocyte | granulocytes are | | [facility]CR[facility] | | | s | left-shifted | | HEART | | | | granulocytes and do not | | [facility] | | | | equal blasts. They are | | CENTER | | | | composed of | | LABORA TORY | | | | metamyelocytes, | | C[facility] | | | | myelocytes, and | | | | | | promyelocytes. Their | | | | | | presence can be seen in | | | | | | infection, inflammation, | | | | | | certain medication's | | | | | | effect, or other bone | | | | | | marrow stimuli. | | | | | | Occasionally, | | | | | | persistent increase in | | | | | | immature granulocytes | | | | | | may be part of myeloid | | | | | | neoplastic process. | | | | | | Correlation with | | | | | | clinical findings is | | | | | | recommended for complete | | | | | | interpretation of this | | | | | | parameter. Please also | | | | | | note that peripheral | | | | | | blood with immature | | | | | | granulocytes >5% will be | | | | | | manually reviewed by | | | | | | lab personnel and/or | | | | | | pathologists. | | | | + + + +------- ------+ + | Absolute | 6.05 | 1.90 - 7.40 | [facility] | | | Neutrophils | | K/uL | [facility] | | | | | | HEART | | | | | | [facility] | | | | | | CENTER | | | | | | LABORA TORY | | | | | | C[facility] | | + + + +------- ------+ + | Absolute | 1.73 | 1.00 - 3.90 | [facility] | | | Lymphocytes | | K/uL | [facility] | | | | | | HEART | | | | | | [facility] | | | | | | CENTER | | | | | | LABORA TORY | | | | | | C[facility] | | + + + +------- ------+ + | Absolute | 0.52 | 0.00 - 0.80 | [facility] | | | Monocytes | | K/uL | [facility] | | | | | | HEART | | | | | | [facility] | | | | | | CENTER | | | | | | LABORA TORY | | | | | | C[facility] | | + + + +------- ------+ + | Absolute | 0.01 | 0.00 - 0.50 | [facility] | | | Eosinophils | | K/uL | [facility] | | | | | | HEART | | | | | | [facility] | | | | | | CENTER | | | | | | LABORA TORY | | | | | | C[facility] | | + + + +------- ------+ + | Absolute | 0.02 | 0.00 - 0.10 | [facility] | | | Basophils | | K/uL | [facility] | | | | | | HEART | | | | | | [facility] | | | | | | CENTER | | | | | | LABORA TORY | | | | | | C[facility] | | + + + +------- ------+ + | Absolute | 0.03Comment: Performed | 0.00 - 0.03 | [facility] | | | Immature | by [facility] [address], | K/uL | SACR[facility] | | | Granulocyte | [place] [address] | | HEART | | | s |Performed by [facility] [address], [place] [address] | | MEDICA L | | | | | | CENTER | | | | | | LABORA TORY | | | | | | CERNER | | + + + +------- ------+ + + + | Specimen | + + | Blood specimen | | (specimen) | + + + + + + + | Performing | Address | City/State/Zipcode | Phone Number | | Organization | | | | + + + + + | [facility] | [address] | [place] [address] | | | [facility] | | | | | LABORATORY C[facility] | | | | + + + + + [place] ERCP Biliary Only (12/31/2018 9:46 AM PST) + + | Specimen | + + | | + + + + + | Impressions | Performed At | + + + | Fluoroscopic assistance. Signed by: Shanell Claire, | [facility] | | Bjorn Sign Date/Time: 12/31/2018 10:10 AM | | + + + + + + | Narrative | Performed At | + + + | ERCP BILIARY CLINICAL INFORMATION: ERCP for calculus of bile | [facility] | | duct with cholangitis and obstruction. COMPARISON: MRI ABDOMEN W | | | WO CONTRAST MRCP (12/27/2018); MRI ABDOMEN WO CONTRAST MRCP | | | (12/04/2018); CT ABDOMEN PELVIS W CONTRAST (11/16/2018); FINDINGS: | | | Multiple fluoroscopic spot images were obtained during ERCP and stone | | | removal. Refer to procedure report for details. Fluoro Time: 1 | | | minute(s)38 seconds. Number of images: 11 Air Kerma: 14.58 mGy | | | | | + + + + + | Procedure Note | + + | Dex, Rad Results In - 12/31/2018 10:13 AM PST | | ERCP BILIARY | | | | CLINICAL INFORMATION: | | ERCP for calculus of bile duct with cholangitis and obstruction. | | | | COMPARISON: | | MRI ABDOMEN W WO CONTRAST MRCP (12/27/2018); MRI ABDOMEN WO CONTRAST | | MRCP (12/04/2018); CT ABDOMEN PELVIS W CONTRAST (11/16/2018); | | | | FINDINGS: | | Multiple fluoroscopic spot images were obtained during ERCP and stone | | removal. Refer to procedure report for details. | | | | Fluoro Time: 1 minute(s)38 seconds. Number of images: 11 Air Kerma: | | 14.58 mGy | | | | IMPRESSION: | | Fluoroscopic assistance. | | | | | | | | | | Signed by: Shanell Claire Gregory | | Sign Date/Time: 12/31/2018 10:10 AM | + + + +---------+ + + | Performing | Address | City/State/Zipcode | Phone Number | | Organization | | | | + +---------+ + + | [facility] | | | | + +---------+ + + ERCP (12/31/2018 8:54 AM PST) + + | Specimen | + + | | + + + + + | Narrative | Performed At | + + + | [place] | [facility] | | [facility] | [facility] | | [facility]ology | | | Patient Name: Sharon Way | | | Procedure Date: 12/31/2018 8:54 AMMRN: [id number] | | | of : 1945 | | | Note Status: FinalizedAttending MD: JASON CADENA MD | | | | | | | | | Procedure: ERCPIndications: | | | Bile duct stone(s)Patient Profile: Patient presents | | | to endoscopy for ERCP for stent | | | removal, stone removal and evaluation of the | | | intrahepatics due to MRI showing stones in the | | | intrahepatic ductsReferring MD: | | | Brandi WardMedicines: General | | | AnesthesiaComplications: No immediate | | | complications. | | | Procedure: Pre-Anesthesia Assessment: | | | - Prior to the procedure, a History and Physical was performed, and | | | patient medications and allergies were reviewed. The patient's | | | tolerance of previous anesthesia was also reviewed. The risks | | | and benefits of the procedure and the sedation options and | | | risks were discussed with the patient. All questions were | | | answered, and informed consent was obtained. Prior | | | Anticoagulants: The patient has taken aspirin, last dose was 7 | | | days prior to procedure. ASA Grade Assessment: III - A patient with | | | severe systemic disease. After reviewing the risks and benefits, | | | the patient was deemed in satisfactory condition to undergo | | | the procedure. - The patient was placed in supine position. | | | After informed consent was obtained including risks, benefits and | | | alternatives, the scope was passed under direct vision. | | | Throughout the procedure, the patient's blood pressure, pulse, | | | and oxygen saturations were monitored continuously. The was | | | introduced through the mouth, and advanced to the duodenum and | | | used for direct visualization of the bile duct. The ERCP was | | | accomplished without difficulty. The patient tolerated the | | | procedure well. | | | | | | Findings: A vegetable sorter film of the abdomen was obtained. The | | | esophagus was successfully intubated under direct vision. The | | | scope was advanced to a normal major papilla in the descending | | | duodenum without detailed examination of the pharynx, larynx | | | and associated structures, and upper GI tract. The upper GI | | | tract was grossly normal. A biliary stent was seen exiting the | | | ampulla. Using a Raptor forceps, this was removed. Then, deep biliary | | | cannulation was easily achieved using a 12 to 15 mm retrieval | | | balloon catheter loaded with a 0.035 inch guidewire. Contrast | | | was injected in a personally interpreted all radiological | | | images. The bile duct is about 16 to 17 mm in size. There were | | | 3 large filling defects. Using balloon sweeps, 3 large stones | | | were delivered. After that, occlusion cholangiogram was | | | performed which showed normal intrahepatics on the right side | | | but on the left side, intraductal stones were seen within the | | | branch. Then, a VoAPPs Spyglass DS system was used to | | | perform direct cholangioscopy. The common bile duct was | | | entirely normal. The cystic duct opening was normal. At the | | | hilum, normal takeoffs were seen. Initially, the cholangioscope | | | was advanced into the right anterior and the right posterior | | | duct branches and they were all normal. Then, it was advanced | | | into the left and there was a mild to moderate narrowing seen | | | as the intrahepatic duct branches out. After some difficulty, the | | | cholangioscope was able to be advanced past this moderate stricture | | | which appeared inflammatory in nature because the mucosa was | | | entirely normal and then, it entered in the area where the | | | branch was with all the stones. However, the cholangioscope | | | could only enter the adjacent duct which was completely clean. | | | On careful withdrawal, a tiny opening was seen at a 90 degree | | | angle from this branch which corresponded to the intrahepatic | | | duct with the stones when evaluated along with fluoroscopy. Due | | | to the severe angulation and the stricturing, the spyglass cannot | | | enter this duct and also, while cannulation of this duct cannot be | | | performed. Procedure was then terminated. On withdrawal, an | | | ulcer was seen in the common hepatic duct from the previously | | | placed stent. Good bile flow was seen except for the duct with | | | stones and the procedure was terminated. The total fluoroscopy | | | exposure time was 1 minute and 38 seconds. | | | | | | Impression: 1. Choledocholithiasis | | | status post removal using balloon sweeps 2. Successful stent | | | removal 3. Direct cholangioscopy showed normal right | | | intrahepatic ducts and most of the left intrahepatics ducts | | | except for one branch with stones with a tight stricture at 90 | | | degree angulation from the intrahepatic duct branch, therefore | | | cholangioscope all wire cannulation cannot be performedRecommendation: | | | - Patient has a contact number available for emergencies. The | | | signs and symptoms of potential delayed complications were | | | discussed with the patient. Return to normal activities | | | tomorrow. Written discharge instructions were provided to the | | | patient. - Resume previous diet. - Continue present | | | medications. - Cipro (ciprofloxacin) 500 mg PO BID for 5 days. | | | - Refer to a surgeon, Dr. Tom Limon, at the next available | | | appointment for consideration of left hepatectomy. | | | JASON CADENA MD12/31/2018 10:04:13 AMThis report has | | | been signed electronically. Note Initiated On: 12/31/2018 8:54 | | | AMNumber of Addenda: 0 [facility] | | |This report has been signed electronically. | | | | | |Note Initiated On: 12/31/2018 8:54 AM | | |Number of Addenda: 0 | | | | | | [facility] | | + + + + +---------+ + + | Performing | Address | City/State/Zipcode | Phone Number | | Organization | | | | + +---------+ + + | [place] [facility] | | | | + +---------+ + + POC Glucose (12/31/2018 7:40 AM PST) + + + + --+ + | Component | Value | Ref Range | Performed | Pathologist | | | | | At | Signature | + + + + --+ + | Glucose, | 98Comment: Performed by | 65 - 99 mg/dL | [facility] | | | POC | [facility] [address], | | [facility]CR[facility] | | | | [place] | | HEART | | | |Performed by [facility] [address], [place], [place] | | MEDICAL | | | | | | CENTER | | | | | | LABORATORY | | | | | | CERNER | | + + + + --+ + + + | Specimen | + + | Blood specimen | | (specimen) | + + + + + + + | Performing | Address | City/State/Zipcode | Phone Number | | Organization | | | | + + + + + | [facility] | [address] | [place], [place] | | | [facility] | | | | | LABORATORY CERNER | | | | + + + + + documented in this encounter Visit Diagnoses + + | Diagnosis | + + | Intrahepatic bile duct stones - Primary Calculus of bile duct without mention of | | cholecystitis or obstruction | + + | Intrahepatic bile duct dilation Other specified disorders of biliary tract | + + | Calculus of bile duct with cholangitis and obstruction, unspecified cholangitis acuity | + + | Chronic obstructive pulmonary disease, unspecified COPD type (HCC) | + + | Coronary artery disease involving council coronary artery of council heart, angina | | presence unspecified | + + | CAD (coronary artery disease) Coronary atherosclerosis of unspecified type of vessel, | | council or graft | + + documented in this encounter Admitting Diagnoses + + | Diagnosis | + + | Calculus of bile duct with cholangitis and obstruction, unspecified cholangitis acuity | + + | Intrahepatic bile duct dilation Other specified disorders of biliary tract | + + documented in this encounter Administered Medications + +--------+ +--------+------+------+ | Medication Order | MAR | Action | Dose | Rate | Site | | | Action | Date | | | | + +--------+ +--------+------+------+ | acetaminophen (TYLENOL) tablet | Given | 01/02/20 | 650 mg | | | | 650 mg 650 mg, Oral, EVERY 4 | | 19 12:52 | | | | | HOURS PRN, Pain, or fever >= 38.6 | | AM PST | | | | | C (101.5 F), Starting Fri | | | | | | | 12/31/18 at 1603 | | | | | | + +--------+ +--------+------+------+ +---+---+ | | | +---+---+ + +-------+ +-------+---+---+ | aspirin chewable tablet 81 mg | Given | 01/02/20 | 81 mg | | | | 81 mg, Oral, DAILY WITH | | 19 8:59 | | | | | BREAKFAST, First dose on Fri | | AM PST | | | | | 12/31/18 at 1630 | | | | | | + +-------+ +-------+---+---+ +---+---+ | | | +---+---+ + +-------+ +-------+---+---+ | atorvaSTATin (LIPITOR) tablet | Given | 01/01/20 | 40 mg | | | | 40 mg 40 mg, Oral, NIGHTLY, | | 19 11:05 | | | | | First dose on Thu12/31/18 at | | PM PST | | | | | 2100 | | | | | | + +-------+ +-------+---+---+ +---+---+ | | | +---+---+ + +-------+ +--------+---+---+ | ciprofloxacin (CIPRO) tablet | Given | 01/02/20 | 500 mg | | | | 500 mg 500 mg, Oral, 2 TIMES | | 19 9:08 | | | | | DAILY, First dose on Thu12/31/18 | | AM PST | | | | | at 1800, For 5 days, Give 2 | | | | | | | hours before or 6 hours after | | | | | | | antacids, dairy, calcium, iron, | | | | | | | or zinc., Indications: | | | | | | | Cholangitis | | | | | | + +-------+ +--------+---+---+ +-------+ +--------+---+---+ | Given | 01/01/20 | 500 mg | | | | | 19 5:07 | | | | | | PM PST | | | | +-------+ +--------+---+---+ +---+---+ | | | +---+---+ + +-------+ +--------+---+---+ | fentaNYL (PF) injection 25-50 | Given | 01/01/20 | 25 mcg | | | | mcg 25-50 mcg, Intravenous, | | 19 10:36 | | | | | EVERY 5 MIN PRN, Pain, Initial | | AM PST | | | | | postop urgent pain or escalating | | | | | | | pain, Starting 12/31/18 at | | | | | | | 1027, For 4 doses, (2 doses | | | | | | | maximum for opioid naive, 4 doses | | | | | | | maximum for opioid tolerant) | | | | | | | First dose must be lowest dose. | | | | | | | Use Pasero Sedation Scale. | | | | | | | [Opioid tolerant = One week or | | | | | | | longer, cidzhf-pqy-zbwrn use of | | | | | | | at least the following DAILY | | | | | | | dose: 60mg oral morphine, 60mg | | | | | | | oral hydrocodone, 30mg oral | | | | | | | oxycodone, 8mg oral | | | | | | | hydromorphone, fentanyl patch | | | | | | | 25mcg/hr, or equivalent dose of | | | | | | | another opioid], Recovery/Phase I | | | | | | + +-------+ +--------+---+---+ +-------+ +--------+---+---+ | Given | 01/01/20 | 25 mcg | | | | | 19 10:30 | | | | | | AM PST | | | | +-------+ +--------+---+---+ +---+---+ | | | +---+---+ + +-------+ +---------+---+---+ | HYDROcodone-acetaminophen | Given | 01/02/20 | 2 | | | | (NORCO) 5-325 mg per tablet 1-2 | | 19 8:59 | tablets | | | | tablet 1-2 tablet, Oral, EVERY 4 | | AM PST | | | | | HOURS PRN, Pain, Starting Fri | | | | | | | 12/31/18 at 1603, If ineffective | | | | | | | use [place] 10/325 if ordered. If | | | | | | | not tolerated, use Percocet then | | | | | | | Oxycodone if ordered., | | | | | | + +-------+ +---------+---+---+ + +---+ | | | + +---+ | HYDROmorphone (DILAUDID) 2 | | | mg/mL injection Starting Fri | | | 12/31/18 at 1107, For 1 dose, | | | Stephany Carey: wendy | | | override, | | + +---+ | | | + +---+ + +-------+ +---------+---+---+ | HYDROmorphone (DILAUDID) | Given | 01/01/20 | 0.25 mg | | | | injection 0.25-1 mg 0.25-1 mg, | | 19 11:07 | | | | | Intravenous, EVERY 4 HOURS PRN, | | PM PST | | | | | Severe Pain, Starting Fri | | | | | | | 12/31/18 at 1603, Use IV morphine | | | | | | | first if ordered. Slow IV push, | | | | | | | not faster than 0.25 mg/minute. | | | | | | | If ineffective or not tolerated | | | | | | | and unable to take oral opioid - | | | | | | | contact MD., | | | | | | + +-------+ +---------+---+---+ +---+---+ | | | +---+---+ + +-------+ +--------+---+---+ | HYDROmorphone (DILAUDID) | Given | 01/01/20 | 0.5 mg | | | | injection 0.5 mg 0.5 mg, | | 19 3:23 | | | | | Intravenous, EVERY 10 MIN PRN, | | PM PST | | | | | Moderate Pain, Starting Fri | | | | | | | 12/31/18 at 1109, For 4 doses | | | | | | + +-------+ +--------+---+---+ +-------+ +--------+---+---+ | Given | 01/01/20 | 0.5 mg | | | | | 19 1:39 | | | | | | PM PST | | | | +-------+ +--------+---+---+ | Given | 01/01/20 | 0.5 mg | | | | | 19 11:37 | | | | | | AM PST | | | | +-------+ +--------+---+---+ +---+---+ | | | +---+---+ + +-------+ +-------+---+---+ | indomethacin (INDOCIN) | Given | 01/01/20 | 50 mg | | | | suppository PRN, Starting Fri | | 19 9:00 | | | | | 12/31/18 at 0900 | | AM PST | | | | + +-------+ +-------+---+---+ +---+---+ | | | +---+---+ + +---------+ +---+-------+---+ | lactated ringers (LR) infusion | New Bag | 01/01/20 | | 100 | | | at 100 mL/hr, Intravenous, | | 19 7:42 | | mL/hr | | | CONTINUOUS, Starting 12/31/18 | | AM PST | | | | | at 0730, Pre-op | | | | | | + +---------+ +---+-------+---+ +---+---+ | | | +---+---+ + +-------+ +--------+---+---+ | levothyroxine (SYNTHROID) | Given | 11/23/20 | 50 mcg | | | | tablet 50 mcg 50 mcg, Oral, | | 19 6:47 | | | | | DAILY BEFORE BREAKFAST, First | | AM PST | | | | | dose on Thu12/31/18 at 1630, | | | | | | | Give before breakfast., | | | | | | + +-------+ +--------+---+---+ +---+---+ | | | +---+---+ + +-------+ +-------+---+---+ | lisinopril (PRINIVIL, ZESTRIL) | Given | 01/02/20 | 10 mg | | | | tablet 10 mg 10 mg, Oral, DAILY, | | 19 8:59 | | | | | First dose on Thu12/31/18 at | | AM PST | | | | | 1630 | | | | | | + +-------+ +-------+---+---+ +---+---+ | | | +---+---+ + +-------+ +------+---+---+ | ondansetron (ZOFRAN) injection | Given | 01/01/20 | 4 mg | | | | 4 mg 4 mg, Intravenous, ONCE | | 19 1:06 | | | | | PRN, Nausea, Starting Fri | | PM PST | | | | | 12/31/18 at 1027, For 1 dose, | | | | | | | Recovery/Phase I | | | | | | + +-------+ +------+---+---+ +---+---+ | | | +---+---+ + +-------+ +-------+---+---+ | pantoprazole (PROTONIX) DR | Given | 01/02/20 | 40 mg | | | | tablet 40 mg 40 mg, Oral, DAILY | | 19 6:47 | | | | | BEFORE BREAKFAST, First dose on | | AM PST | | | | | 12/31/18 at 1630, Do not cut | | | | | | | or crush., Indication: GERD | | | | | | + +-------+ +-------+---+---+ +---+---+ | | | +---+---+ + +-------+ +--------+---+---+ | traZODone (DESYREL) tablet | Given | 01/01/20 | 100 mg | | | | 75-150 mg 75-150 mg, Oral, | | 19 11:05 | | | | | NIGHTLY, First dose on Fri | | PM PST | | | | | 12/31/18 at 2100 | | | | | | + +-------+ +--------+---+---+ +---+---+ | | | +---+---+ + +-------+ +--------+---+---+ | venlafaxine (EFFEXOR) tablet | Given | 01/02/20 | 225 mg | | | | 225 mg 225 mg, Oral, DAILY, | | 19 8:59 | | | | | First dose on 12/31/18 at | | AM PST | | | | | 1630 | | | | | | + +-------+ +--------+---+---+ +---+---+ | | | +---+---+ documented in this encounter
--- OUTSIDE RECORDS SUMMARY | ~2019-06-30 | XMS | Encounter Summary ---
Demographics + + + | Address | [address] | | | [place] [address] | + + + | Home Phone | | + + + | Preferred Language | Unknown | + + + | Marital Status | | + + + | Taoist Affiliation | 1041 | + + + [...] Team Providers + +------+ + | Care High Lead Yarder Name | Role | Phone | + +------+ + | Fabrice Hansen DO | PCP | | + +------+ + Encounter Details +--------+ + + + + | Date | Type | Department | Care Team | Description | +--------+ + + + + | 01/09/ | Orders Only | [facility] | Tom Limon MD | Hepatic lithiasis | | 2019 | | and Pancreas GI | [address] [place] | (Primary Dx); Acute | | | | [address] | [address] [place] | abdomen | | | | [address] | [address] | | | | | [place], [place] | | | | | | [address] | | | | | | [phone] | | | +--------+ + + + [...] Cardiology | Erin Limon | | | 2020 | Visit | | [address] | | | | | | [place] | | | | | | [place] [address] | | | | | | [phone] | | | | | | | | +--------+---------+ + + + + +------+--------+ + + | Name | Type | Priori | Associated Diagnoses | Order Schedule | | | | ty | | | + +------+--------+ + + | ECG 12 lead | ECG | Routin | Acute abdomen | 1 Occurrences | | | | e | Hepatic lithiasis | starting 01/09/2019 | | | | | | until 01/10/2020 | + +------+--------+ + + documented as of this encounter Results Marleni INR (03/16/2019 9:52 AM PST) + + + + + + | Component | Value | Ref Range | Performed | Pathologist | | | | | At | Signature | + + + + + + | INR | 0.9Comment: REFERENCE | | REFERENCE | | | | RANGE:0.9 - 1.2 | | LAB | | | | NON-ANTICOAGULATED2.0 | | [facility] | | | | - 3.0 ALL OTHER | | LABORATORY | | | | THERAPEUTIC | | | | | | INDICATIONS2.5 - 3.5 | | | | | | MECHANICAL HEART VALVES, | | | | | | RECURRENT OR SYSTEMIC | | | | | | EMBOLISMTesting | | | | | | performed at [facility];[address] | | [address];[place] [address] | | | | | | | | | | + + + + + + + + | Specimen | + + | Blood | + + + + + + + | Performing | Address | City/State/Zipcode | Phone Number | | Organization | | | | + + + + + | REFERENCE LAB | [address] [place] [address] | [place] | [phone] | | [facility] | Bl[address] | [address] | | | LABORATORY | | | | + + + + + | REFERENCE LAB | [address] [place] [address] | [place] | | | [facility] | Blvd. | [address] | | | LABORATORY | | | | + + + + + Comprehensive Metabolic Panel (03/16/2019 9:52 AM PST) + + + + + + | Component | Value | Ref Range | Performed | Pathologist | | | | | At | Signature | + + + + + + | Na | 137 | 135 - 145 | REFERENCE | | | | | mmol/L | LAB | | | | | | [facility] | | | | | | LABORATORY | | + + + + + + | K | 4.1 | 3.5 - 4.9 | REFERENCE | | | | | mmol/L | LAB | | | | | | [facility] | | | | | | LABORATORY | | + + + + + + | Cl | 101 | 99 - 109 mmol/L | REFERENCE | | | | | | LAB | | | | | | [facility] | | | | | | LABORATORY | | + + + + + + | CO2 | 26 | 23 - 32 mmol/L | REFERENCE | | | | | | LAB | | | | | | [facility] | | | | | | LABORATORY | | + + + + + + | Anion Gap | 14 | 5 - 20 mmol/L | REFERENCE | | | | | | LAB | | | | | | [facility] | | | | | | LABORATORY | | + + + + + + | Glucose | 88 | 65 - 99 mg/dL | REFERENCE | | | | | | LAB | | | | | | [facility] | | | | | | LABORATORY | | + + + + + + | BUN | 11 | 8 - 25 mg/dL | REFERENCE | | | | | | LAB | | | | | | [facility] | | | | | | LABORATORY | | + + + + + + | Creatinine | 0.7 | 0.50 - 1.00 | REFERENCE | | | | | mg/dL | LAB | | | | | | [facility] | | | | | | LABORATORY | | + + + + + + | BUN/Creatin | 16 | | REFERENCE | | | ine Ratio | | | LAB | | | | | | [facility] | | | | | | LABORATORY | | + + + + + + | Calcium | 9.9 | 8.5 - 10.5 | REFERENCE | | | | | mg/dL | LAB | | | | | | [facility] | | | | | | LABORATORY | | + + + + + + | Protein, | 7.2 | 6.3 - 8.2 g/dL | REFERENCE | | | Total | | | LAB | | | | | | [facility] | | | | | | LABORATORY | | + + + + + + | Albumin | 4.1 | 3.3 - 4.8 g/dL | REFERENCE | | | | | | LAB | | | | | | [facility] | | | | | | LABORATORY | | + + + + + + | Globulin | 3.1 | 1.3 - 4.9 g/dL | REFERENCE | | | | | | LAB | | | | | | [facility] | | | | | | LABORATORY | | + + + + + + | A/G Ratio | 1.3 | 1.0 - 2.4 | REFERENCE | | | | | | LAB | | | | | | [facility] | | | | | | LABORATORY | | + + + + + + | BILIRUBIN, | 0.6 | 0.1 - 1.5 mg/dL | REFERENCE | | | TOTAL | | | LAB | | | | | | [facility] | | | | | | LABORATORY | | + + + + + + | ALK PHOS | 122 (H) | 35 - 115 U/L | REFERENCE | | | | | | LAB | | | | | | [facility] | | | | | | LABORATORY | | + + + + + + | AST | 6 (L) | 10 - 45 U/L | REFERENCE | | | | | | LAB | | | | | | [facility] | | | | | | LABORATORY | | + + + + + + | ALT | 31 | 10 - 65 U/L | REFERENCE | | | | | | LAB | | | | | | [facility] | | | | | | LABORATORY | | + + + + + + | Estimated | >60Comment: GFR <60: | >60 | REFERENCE | | | GFR | CHRONIC KIDNEY DISEASE, | mL/min/1.73m2 | LAB | | | | IF FOUND OVER A 3 MONTH | | [facility] | | | | PERIOD.GFR <15: KIDNEY | | LABORATORY | | | | FAILURE.FOR | | | | | | AMERICANS, MULTIPLY THE | | | | | | CALCULATED GFR BY | | | | | | 1.210.This eGFR is | | | | | | calculated using the | | | | | | MDRD IDMS traceable | | | | | | equation.Testing | | | | | | performed at [facility];[address] | | | | | | [facility] | | | | | | Blvd;[place] [address] | | | | | | | | | | + + + + + + + + | Specimen | + + | Blood | + + + + + + + | Performing | Address | City/State/Zipcode | Phone Number | | Organization | | | | + + + + + | REFERENCE LAB | [address] [facility] | [place] | [phone] | | [facility] | [address] | [address] | | | LABORATORY | | | | + + + + + | REFERENCE LAB | [address] [facility] | [place] | | | [facility] | Blvd[address] | [address] | | | LABORATORY | | | | + + + + + CBC no Differential (03/16/2019 9:52 AM PST) + + + + + + | Component | Value | Ref Range | Performed | Pathologist | | | | | At | Signature | + + + + + + | WBC | 8.96 | 3.80 - 11.00 | REFERENCE | | | | | K/uL | LAB | | | | | | [facility] | | | | | | LABORATORY | | + + + + + + | RBC | 4.40 | 3.70 - 5.10 | REFERENCE | | | | | M/uL | LAB | | | | | | [facility] | | | | | | LABORATORY | | + + + + + + | Hemoglobin | 14.7 | 11.3 - 15.5 | REFERENCE | | | | | g/dL | LAB | | | | | | [facility] | | | | | | LABORATORY | | + + + + + + | Hematocrit | 43.4 | 34.0 - 46.0 % | REFERENCE | | | | | | LAB | | | | | | [facility] | | | | | | LABORATORY | | + + + + + + | MCV | 98.6 | 80.0 - 100.0 fl | REFERENCE | | | | | | LAB | | | | | | [facility] | | | | | | LABORATORY | | + + + + + + | MCH | 33.4 | 27.0 - 34.0 pg | REFERENCE | | | | | | LAB | | | | | | [facility] | | | | | | LABORATORY | | + + + + + + | MCHC | 33.9 | 32.0 - 35.5 | REFERENCE | | | | | g/dL | LAB | | | | | | [facility] | | | | | | LABORATORY | | + + + + + + | RDW-SD | 45.9 | 37 - 53 fl | REFERENCE | | | | | | LAB | | | | | | [facility] | | | | | | LABORATORY | | + + + + + + | Platelet | 298 | 150 - 400 K/uL | REFERENCE | | | Count | | | LAB | | | | | | [facility] | | | | | | LABORATORY | | + + + + + + | MPV | 9.2Comment: Testing | fl | REFERENCE | | | | performed at [facility];[address] | | LAB | | | | [place] | | [facility] | | | | [address];[place] [address] | | LABORATORY | | + + + + + + + + | Specimen | + + | Blood | + + + + + + + | Performing | Address | City/State/Zipcode | Phone Number | | Organization | | | | + + + + + | REFERENCE LAB | [address] | [place] | [phone] | | [facility] | [address] | [address] | | | LABORATORY | | | | + + + + + | REFERENCE LAB | [address] | [place] | | | [facility] | [place] | [address] | | | LABORATORY | | | | + + + + + documented in this encounter Visit Diagnoses + + | Diagnosis | + + | Hepatic lithiasis - Primary Calculus of bile duct without mention of cholecystitis or | | obstruction | + + | Acute abdomen Abdominal pain, unspecified site | + + documented in this encounter"
--- OUTSIDE RECORDS SUMMARY | ~2019-06-30 | XMS | Encounter Summary ---
Demographics + + + | Address | [address] | | | [place] [address] | + + + | Home Phone | | + + + | Preferred Language | Unknown | + + + | Marital Status | | + + + | Restoration Affiliation | 1041 | + + + | Race | Unknown | + + + | Ethnic Group | Unknown | + + + Author + + + | Author | [facility] | | | and [place] | + + + | Organization | [facility] | | | [...] Team Providers + +------+ + | Care Type Inspector Name | Role | Phone | + +------+ + | Fabrice Hansen DO | PCP | | + +------+ + Encounter Details +--------+ + + + + | Date | Type | Department | Care Team | Description | +--------+ + + + + | 03/05/ | Orders Only | [facility] | Fabrice Hansen | | | 2019 | | [facility] | [address] | | | | | [address] | [place] | | | | | [address] | [address] [place], [place] | | | | | [place], [place] | [address] | | | | | [address] | | | | | | [phone] | | | +--------+ + + + [...] [place] | | | | | | [place] [address] | | | | | | [phone] | | | | | | | | +--------+---------+ + + + documented as of this encounter Visit Diagnoses Not on filedocumented in this encounter"
--- OUTSIDE RECORDS SUMMARY | ~2019-06-30 | XMS | Encounter Summary ---
Demographics + + + | Address | [address] | | | [place] [address] | + + + | Home Phone | | + + + | Preferred Language | Unknown | + + + | Marital Status | | + + + | Adventism Affiliation | 1041 | + + + | Race | Unknown | + + + | Ethnic Group | Unknown | + + + Author + + + | Author | [facility] | | | and [place] | + + + | Organization | [facility] | | | [...] Team Providers + +------+ + | Care Overlay Operator Name | Role | Phone | + +------+ + | Fabrice Hansen DO | PCP | | + +------+ + Encounter Details +--------+ + + + + | Date | Type | Department | Care Team | Description | +--------+ + + + + | 09/28/ | Orders Only | [facility] | Conversion | | | 2013 | | CONVERSION [address] | Transaction, | | | | | [address] | Provider Unknown | | | | | [place], [place] | [phone] | | | | | [address] | | | | | | [phone] | | | +--------+ + + + [...] | | | | | [place] [address] | | | | | | [phone] | | | | | | | | +--------+---------+ + + + documented as of this encounter Visit Diagnoses Not on filedocumented in this encounter"
--- OUTSIDE RECORDS SUMMARY | ~2019-06-30 | XMS | Encounter Summary ---
Demographics + + + | Address | [address] | | | [place] [address] | + + + | Home Phone | | + + + | Preferred Language | Unknown | + + + | Marital Status | | + + + | Adventism Affiliation | 1041 | + + + | Race | Unknown | + + + | Ethnic Group | Unknown | + + + Author + + + | Author | [facility] | | | and [place] | + + + | Organization | [facility] | | | and [...] Team Providers + +------+ + | Care Manager Internet Name | Role | Phone | + +------+ + | Fabrice Hansen DO | PCP | | + +------+ + Reason for Visit +--------+ + | Reason | Comments | +--------+ + | Other | Pain post ERCP | +--------+ + Encounter Details +--------+ + + + + | Date | Type | Department | Care Team | Description | +--------+ + + + + | 11/16/ | Telephone | [facility] | Meme Le | Other (Pain post | | 2019 | | GASTROENTEROLOGY | A, LEASE ADMINISTRATOR [address] | ERCP) | | | | [address] | [place] [address] | | | | | [place], [place] | [phone] | | | | | [address] | | | | | | [phone] | | | +--------+ + + + + Social History + +-------+ +--------+------+ | Tobacco Use | Types | Packs/Day | Years | Date | | | | | Used | | + +-------+ +--------+------+ | Current Every Day | | 0.75 | 25 | | | Smoker | | | | | + +-------+ +--------+------+ + +---+---+---+ | Smokeless Tobacco: | | | | | Never Used | | | | + +---+---+---+ + + +---------+ + | Alcohol Use | Drinks/Week | oz/Week | Comments | + + +---------+ + | Yes | 4 Glasses of wine | 4.0 | | + + +---------+ + + [...] | | | | | [place] [address] | | | | | | [phone] | | | | | | | | +--------+---------+ + + + documented as of this encounter Visit Diagnoses Not on filedocumented in this encounter"
--- OUTSIDE RECORDS SUMMARY | ~2019-06-30 | XMS | Encounter Summary ---
Demographics + + + | Address | [address] | | | [place] [address] | + + + | Home Phone | | + + + | Preferred Language | Unknown | + + + | Marital Status | | + + + | Christianity Affiliation | 1041 | + + + | Race | Unknown | + + + | Ethnic Group | Unknown | + + + Author + + + | Author | [facility] | | | and Luisana | + + + | Organization | [facility] | | | [...] Team Providers + +------+ + | Care Counter Control Operator Name | Role | Phone | + +------+ + | Fabrice Hansen DO | PCP | | + +------+ + Encounter Details +--------+ + + + + | Date | Type | Department | Care Team | Description | +--------+ + + + + | 11/09/ | Anesthesia | [facility] | Ja Diaz, | | | 2019 | Event | [facility] | [address] | | | | | INTRA [address] | [place], [place] | | | | | Ave [place], [place] | [phone] | | | | | [address] | | | | | | [phone] | Gomez Munroe MD | | | | | | [address] | | | | | | [place], [place] | | | | | | [phone] | | | | | | | | +--------+ + + + + Anesthesia Record + + + + + | Procedure Name | Responsible | Anesthesia Start | Anesthesia Stop Time | | | Anesthesiologist | Time | | + + + + + | YARELIS CHRISTENSEN (N/A | Ja Diaz MD | 11/09/18 1326 | 11/09/18 1747 | | Mouth) | | | | + + + + + +----+---+ + + | Da | T | Event | Comment | | te | i | | | | | m | | | | | e | | | +----+---+ + + | 10 | 1 | | | | /0 | 1 | | | | 1/ | 2 | | | | 20 | 0 | | | | 19 | | | | +----+---+ + + | | 1 | Anesthesia | | | | 3 | Ready | | | | 2 | | | | | 1 | | | +----+---+ + + | | 1 | An Checkout | Pre-use anesthesia machine/equipment checkout. | | | 3 | | | | | 2 | | | | | 6 | | | +----+---+ + + | | 1 | An Start | Reassessment prior to anesthesia induction/procedure. | | | 3 | | | | | 2 | | | | | 6 | | | +----+---+ + + | | 1 | Preoxygenat | | | | 3 | ed | | | | 2 | | | | | 8 | | | +----+---+ + + | | 1 | Pre-Procedu | | | | 3 | ral Timeout | | | | 2 | Completed | | | | 8 | | | +----+---+ + + | | 1 | An | | | | 3 | Induction | | | | 3 | | | | | 0 | | | +----+---+ + + | | 1 | An | | | | 3 | Intubation | | | | 3 | | | | | 1 | | | +----+---+ + + | | 1 | AN | Per surgeon request | | | 3 | Antibiotic | | | | 4 | declined | | | | 2 | | | +----+---+ + + | | 1 | First | | | | 3 | Inc/Proc St | | | | 4 | | | | | 4 | | | +----+---+ + + | | 1 | Breathing | | | | 5 | Spontaneous | | | | 4 | ly | | | | 6 | | | +----+---+ + + | | 1 | AN No | TOF 4/4 with sustained tetanus. | | | 7 | Residual | | | | 1 | NMB | | | | 5 | | | +----+---+ + + | | 1 | Moving | | | | 7 | Purposefull | | | | 1 | y | | | | 7 | | | +----+---+ + + | | 1 | Extubation/ | | | | 7 | Airway LDA | | | | 1 | Removal | | | | 8 | | | +----+---+ + + | | 1 | Quick Note | PACU hold started | | | 7 | | | | | 1 | | | | | 8 | | | +----+---+ + + | | 1 | an nick now | To PACU 19 minute hold | | | 7 | | | | | 3 | | | | | 7 | | | +----+---+ + + | | 1 | An Stop | Patient handed off to recovery nurse. | | | 4 | | | | | 7 | | | +----+---+ + + +------+ | Meds | +------+ + + + | Name | Total | + + + | ondansetron | 4 mg | + + + | fentaNYL | 300 mcg | + + + | propofol | 100 mg | + + + | rocuronium | 50 mg | + + + | dexamethasone | 6 mg | + + + | ePHEDrine | 35 mg | + + + | phenylephrine | 400 mcg | + + + | phenylephrine | 1,230 mcg | + + + | glycopyrrolate | 0.1 mg | + + + | glucagon injection | 1.5 mg | + + + | PLASMALYTE-148/NORMOSOL-R IV | 1,000 mL | | infusion | | + + + + + | Name | + + | N2O Flow Rate (L/Min) | + + | O2 Flow Rate (L/Min) | + + | Insp O2 | + + | Exp N2O | + + | Exp ISO | + + | Air Flow Rate (L/Min) | + + + + | No blood administrations on file. | + + +--------+ + + + | Type | Details | Placement | Removal | +--------+ + + + | Periph | 11/09/18; 1125; Right; Hand; | 11/09/18 1125 by | 11/16/181838 by | | jacqui | [id number] catheter system | Samantha Gomez RN | Sudhir Juárez RN | | IV | (started by LEXIS VIZCARRA); 20 gauge, | | | | | 1 in length; 0; distraction, | | | | | tolerated well; 11/16/18; 1838 | | | +--------+ + + + | Airway | Placement Date: 11/09/18; | 11/09/181330 by | 11/09/181717 by | | | Placement Time: 1330 (created via | Jet Holder CRNA | Maria Teresa Luevano | | | procedure documentation); Mask | | NAHUM Mclaughlin | | | Ventilation: EZ; Airway Grade: 1; | | | | | Successful Technique: Mojica; | | | | | Laryngoscope Blade Size: 2; | | | | | Attempts: 1; Airway Type: | | | | | endotracheal; Size: 7; Airway | | | | | Tube Secured At: 20; Trauma: | | | | | none; Other Equipment: stylette; | | | | | Placement Check: exhaled CO2 | | | | | detection device, bilateral chest | | | | | rise, breath sounds equal | | | | | bilaterally, suprasternal notch | | | | | palpation; Removal Date: | | | | | 11/09/18; Removal Time: 1717 | | | +--------+ + + + documented in this encounter Social History + +-------+ +--------+------+ | Tobacco [...] [address] | | | | | | [place] [address] | | | | | | [phone] | | | | | | | | +--------+---------+ + + + documented as of this encounter Procedures + +--------+ + + + | Procedure Name | Priori | Date/Time | Associated Diagnosis | Comments | | | ty | | | | + +--------+ + + + | ANE AIRWAY NOTE | Routin | 11/09/2018 | | Results for this | | | e | 1:43 PM | | procedure are in the | | | | PDT | | results section. | + +--------+ + + + documented in this encounter Results Airway (11/09/2018 1:43 PM PDT) + + + | Narrative | Performed At | + + + | Jet Holder CRNA 11/09/2018 13:43 Anesthesia Airway | | | Placement 11/09/2018 13:31 Preprocedure check: patient identified, | | | oxygen, airway assessed, suction, airway equipment checked and | | | patient reassessment prior to induction Rapid Sequence Induction: no | | | Mask ventilation: easy Successful technique: Mojica Laryngoscope | | | blade size: 2 Airway grade: 1 (Full view of glottis) Other | | | equipment: stylette Attempts: 1 Airway type: endotracheal Size: 7 | | | Cuffed: cuffed and cuff at 20 cmH2O Route, reference point: right | | | side of mouth Tube depth: 20 cm Tube secured with: adhesive tape | | | Trauma: none Tube placement verification: bilateral chest rise, | | | carbon dioxide detection, equal bilateral breath sounds and | | | suprasternal notch palpation Performing provider: Jet Holder, | | | NAHUM Please see intraoperative grid for any additional | | | medication documentation. | | + + + + + | Procedure Note | + + | Jet Holder CRNA - 11/09/2018 1:43 PM PDT Anesthesia Airway [id number]/1/2019 | | 13:31Preprocedure check: patient identified, oxygen, airway assessed, suction, airway | | equipment checked and patient reassessment prior to inductionRapid Sequence Induction: | | noMask ventilation: easySuccessful technique: MillerLaryngoscope blade size: 2 Airway | | grade: 1 (Full view of glottis)Other equipment: styletteAttempts: 1Airway type: | | endotrachealSize: 7Cuffed: cuffed and cuff at 20 [id number], reference point: right side | | of mouthTube depth: 20 cmTube secured with: adhesive tapeTrauma: noneTube placement | | verification: bilateral chest rise, carbon dioxide detection, equal bilateral breath | | sounds and suprasternal notch palpationPerforming provider: Jet Holder CRNAPlease | | see intraoperative grid for any additional medication documentation. | |Attempts: 1 | |Airway type: endotracheal | |Size: 7 | |Cuffed: cuffed and cuff at 20 cmH2O | |Route, reference point: right side of mouth | |Tube depth: 20 cm | |Tube secured with: adhesive tape | |Trauma: none | |Tube placement verification: bilateral chest rise, carbon dioxide detection, equal bilatera l breath sounds and suprasternal notch palpation | |Performing provider: Jet Holder CRNA | | | | | | | |Please see intraoperative grid for any additional medication documentation. | + + documented in this encounter Visit Diagnoses Not on filedocumented in this encounter Administered Medications + +---------+ +------+------+------+ | Medication Order | MAR | Action | Dose | Rate | Site | | | Action | Date | | | | + +---------+ +------+------+------+ | balanced electrolytes in water | New Bag | 11/10/19 | | | | | (PLASMALYTE-148/NORMOSOL-R) | | 19 5:30 | | | | | infusion Intravenous, CONTINUOUS | | PM PDT | | | | | PRN, Starting 11/09/18 at | | | | | | | 1326, Anesthesia Intra-op | | | | | | + +---------+ +------+------+------+ +---------+ +---+---+---+ | New Bag | 11/10/19 | | | | | | 19 1:26 | | | | | | PM PDT | | | | +---------+ +---+---+---+ +---+---+ | | | +---+---+ + +-------+ +------+---+---+ | dexamethasone (DECADRON) 10 | Given | 11/10/19 | 6 mg | | | | mg/mL injection Intravenous, | | 19 1:39 | | | | | PRN, Starting Thu11/09/18 at | | PM PDT | | | | | 1339, Anesthesia Intra-op | | | | | | + +-------+ +------+---+---+ +---+---+ | | | +---+---+ + +-------+ +-------+---+---+ | ePHEDrine 50 mg/mL injection | Given | 11/10/19 | 10 mg | | | | Intravenous, PRN, Starting Thu | | 19 2:46 | | | | | 11/09/18 at 1427, Anesthesia | | PM PDT | | | | | Intra-op | | | | | | + +-------+ +-------+---+---+ +-------+ +-------+---+---+ | Given | 11/10/19 | 10 mg | | | | | 19 2:30 | | | | | | PM PDT | | | | +-------+ +-------+---+---+ | Given | 11/10/19 | 10 mg | | | | | 19 2:27 | | | | | | PM PDT | | | | +-------+ +-------+---+---+ +---+---+ | | | +---+---+ + +-------+ +--------+---+---+ | fentaNYL (PF) injection | Given | 11/10/19 | 50 mcg | | | | Intravenous, PRN, Starting Tue | | 19 5:29 | | | | | 11/09/18 at 1328, Anesthesia | | PM PDT | | | | | Intra-op | | | | | | + +-------+ +--------+---+---+ +-------+ +--------+---+---+ | Given | 11/10/19 | 50 mcg | | | | | 19 5:22 | | | | | | PM PDT | | | | +-------+ +--------+---+---+ | Given | 11/10/19 | 50 mcg | | | | | 19 4:17 | | | | | | PM PDT | | | | +-------+ +--------+---+---+ +---+---+ | | | +---+---+ + +-------+ +---------+---+---+ | glucagon injection | Given | 11/10/19 | 0.25 mg | | | | Intravenous, PRN, Starting Tue | | 19 4:56 | | | | | 11/09/18 at 1349, Anesthesia | | PM PDT | | | | | Intra-op | | | | | | + +-------+ +---------+---+---+ +-------+ +---------+---+---+ | Given | 11/10/19 | 0.25 mg | | | | | 19 4:36 | | | | | | PM PDT | | | | +-------+ +---------+---+---+ | Given | 11/10/19 | 0.25 mg | | | | | 19 4:12 | | | | | | PM PDT | | | | +-------+ +---------+---+---+ +---+---+ | | | +---+---+ + +-------+ +--------+---+---+ | glycopyrrolate (ROBINUL) | Given | 11/10/19 | 0.1 mg | | | | injection Intravenous, PRN, | | 19 2:28 | | | | | Starting 11/09/18 at 1428, | | PM PDT | | | | | Anesthesia Intra-op | | | | | | + +-------+ +--------+---+---+ +---+---+ | | | +---+---+ + +-------+ +------+---+---+ | ondansetron (ZOFRAN) injection | Given | 11/10/19 | 4 mg | | | | Intravenous, PRN, Starting Tue | | 19 5:27 | | | | | 11/09/18 at 1727, Anesthesia | | PM PDT | | | | | Intra-op | | | | | | + +-------+ +------+---+---+ +---+---+ | | | +---+---+ + +-------+ +---------+---+---+ | phenylephrine (HOLDEN-SYNEPHRINE, | Given | 11/10/19 | 100 mcg | | | | VAZCULEP) 10 mg/mL injection | | 19 2:46 | | | | | Intravenous, PRN, Starting Tue | | PM PDT | | | | | 11/09/18 at 1424, Anesthesia | | | | | | | Intra-op | | | | | | + +-------+ +---------+---+---+ +-------+ +---------+---+---+ | Given | 11/10/19 | 100 mcg | | | | | 19 2:29 | | | | | | PM PDT | | | | +-------+ +---------+---+---+ | Given | 11/10/19 | 100 mcg | | | | | 19 2:27 | | | | | | PM PDT | | | | +-------+ +---------+---+---+ +---+---+ | | | +---+---+ + + + +---------+-------+---+ | phenylephrine (HOLDEN-SYNEPHRINE, | Rate/Dos | 11/10/19 | 10 | 0.1 | | | VAZCULEP) 10 mg/mL injection | e Change | 19 4:50 | mcg/min | mL/hr | | | Intravenous, CONTINUOUS PRN, | | PM PDT | | | | | Starting 11/09/18 at 1550, | | | | | | | Anesthesia Intra-op | | | | | | + + + +---------+-------+---+ + + +---------+-------+---+ | Rate/Dose Change | 11/10/19 | 15 | 0.1 | | | | 19 4:10 | mcg/min | mL/hr | | | | PM PDT | | | | + + +---------+-------+---+ | New Bag | 11/10/19 | 25 | 0.2 | | | | 19 3:50 | mcg/min | mL/hr | | | | PM PDT | | | | + + +---------+-------+---+ +---+---+ | | | +---+---+ + +-------+ +--------+---+---+ | propofol (DIPRIVAN) injection | Given | 11/10/19 | 100 mg | | | | Intravenous, PRN, Starting Tue | | 19 1:30 | | | | | 11/09/18 at 1330, Anesthesia | | PM PDT | | | | | Intra-op | | | | | | + +-------+ +--------+---+---+ +---+---+ | | | +---+---+ + +-------+ +-------+---+---+ | rocuronium (ZEMURON) injection | Given | 11/10/19 | 50 mg | | | | Intravenous, PRN, Starting Tue | | 19 1:30 | | | | | 11/09/18 at 1330, Anesthesia | | PM PDT | | | | | Intra-op | | | | | | + +-------+ +-------+---+---+ +---+---+ | | | +---+---+ documented in this encounter"
--- OUTSIDE RECORDS SUMMARY | ~2019-06-30 | XMS | Encounter Summary ---
Demographics + + + | Address | [address] | | | [place] [address] | + + + | Home Phone | | + + + | Preferred Language | Unknown | + + + | Marital Status | | + + + | Sikhism Affiliation | 1041 | + + + [...] Team Providers + +------+ + | Care Rubber Process Hand Name | Role | Phone | + +------+ + | Fabrice Hansen DO | PCP | | + +------+ + Reason for Visit + + + | Reason | Comments | + + + | Medication Refill | | + + + Encounter Details +--------+--------+ + + + | Date | Type | Department | Care Team | Description | +--------+--------+ + + + | 06/09/ | Refill | [facility] | Fabrice Hansen | Medication Refill | | 2020 | | [facility] | DO [address] | | | | | [facility] [facility] [address] | [facility] | | | | | [address] [facility] [address] | [address] [place], [place] | | | | | [place], [place] | [id number] | | | | | [address] | | | | | | [phone] | | | +--------+--------+ + + + Social History + + [...] [address] | | | | | | [place] [address] | | | | | | [phone] | | | | | | | | +--------+---------+ + + + documented as of this encounter Visit Diagnoses + + | Diagnosis | + + | Chronic obstructive pulmonary disease, unspecified COPD type (HCC) - Primary | + + | Other specified hypothyroidism | + + | Depression, unspecified depression type | + + documented in this encounter"
--- OUTSIDE RECORDS SUMMARY | ~2019-06-30 | XMS | Encounter Summary ---
Demographics + + + | Address | [address] | | | [place] [address] | + + + | Home Phone | | + + + | Preferred Language | Unknown | + + + | Marital Status | | + + + | Mormon Affiliation | 1041 | + + + | Race | Unknown | + + + | Ethnic Group | Unknown | + + + Author + + + | Author | [facility] | | | and Luisana | + + + | Organization | [facility] | | | [...] Team Providers + +------+ + | Care Drywall Applicator Name | Role | Phone | + +------+ + | Fabrice Hansen DO | PCP | | + +------+ + Encounter Details +--------+ + + + + | Date | Type | Department | Care Team | Description | +--------+ + + + + | 10/22/ | Orders Only | [facility] | Fabrice Hansen | | | 2017 | | [address] | DO [address] | | | | | [place], [place] | [facility] | | | | | [address] | [address] [place], [place] | | | | | [phone] | [address] | | | | | | | [...] [address] | | | | | | [place] [address] | | | | | | [phone] | | | | | | | | +--------+---------+ + + + documented as of this encounter Procedures + +--------+ + + + | Procedure Name | Priori | Date/Time | Associated Diagnosis | Comments | | | ty | | | | + +--------+ + + + | EXTERNAL LAB: [facility] | Routin | 10/22/2017 | | Results for this | | | e | 9:15 AM | | procedure are in the | | | | PDT | | results section. | + +--------+ + + + | LIPASE | Routin | 10/22/2017 | | Results for this | | | e | 9:15 AM | | procedure are in the | | | | PDT | | results section. | + +--------+ + + + | AMYLASE | Routin | 10/22/2017 | | Results for this | | | e | 9:15 AM | | procedure are in the | | | | PDT | | results section. | + +--------+ + + + | COMPREHENSIVE | Routin | 10/22/2017 | | Results for this | | METABOLIC PANEL | e | 9:15 AM | | procedure are in the | | | | PDT | | results section. | + +--------+ + + + documented in this encounter Results External Lab: [facility] (10/22/2017 9:15 AM PDT) + + + + + + | Component | Value | Ref Range | Performed | Pathologist | | | | | At | Signature | + + + + + + | WBC | 8.03 | 3.80 - 11.00 | EXTERNAL | | | | | 10*3/uL | LAB | | + + + + + + | Red Blood | 3.90 | 3.70 - 5.10 | EXTERNAL | | | Cells | | 10*6/uL | LAB | | | Counted | | | | | + + + + + + | Hemoglobin | 13.5 | 11.3 - 15.5 | EXTERNAL | | | | | g/dL | LAB | | + + + + + + | Hematocrit, | 37.8 | 34.0 - 46.0 % | EXTERNAL | | | POC | | | LAB | | + + + + + + | MCV | 96.9 | 80.0 - 100.0 fL | EXTERNAL | | | | | | LAB | | + + + + + + | MCH | 34.5 (H) | 27.0 - 34.0 pg | EXTERNAL | | | | | | LAB | | + + + + + + | MCHC | 35.6 (H) | 32.0 - 35.5 | EXTERNAL | | | | | g/dL | LAB | | + + + + + + | RDW-CV | 45.1 | 37 - 53 fL | EXTERNAL | | | | | | LAB | | + + + + + + | Platelet | 222 | 150 - 400 | EXTERNAL | | | Count | | 10*3/uL | LAB | | | Plasma | | | | | + + + + + + | MPV | 9.8 | fL | EXTERNAL | | | | | | LAB | | + + + + + + | Differentia | AUTOMATED | | EXTERNAL | | | l Type | | | LAB | | + + + + + + | % Segmented | 66.13 | % | EXTERNAL | | | | | | LAB | | | Neutrophils | | | | | + + + + + + | % | 22.21 | % | EXTERNAL | | | Lymphocytes | | | LAB | | + + + + + + | % Monocytes | 8.01 | % | EXTERNAL | | | | | | LAB | | + + + + + + | % | 2.94 | % | EXTERNAL | | | Eosinophils | | | LAB | | + + + + + + | % Basophils | 0.71 | % | EXTERNAL | | | | | | LAB | | + + + + + + | Absolute | 5.31 | 1.90 - 7.40 | EXTERNAL | | | Segmented | | 10*3/uL | LAB | | | Neutrophils | | | | | + + + + + + | Absolute | 1.78 | 1.00 - 3.90 | EXTERNAL | | | Lymphocytes | | 10*3/uL | LAB | | + + + + + + | Absolute | 0.64 | 0.00 - 0.80 | EXTERNAL | | | Monocytes | | 10*3/uL | LAB | | + + + + + + | Absolute | 0.24 | 0.00 - 0.50 | EXTERNAL | | | Eosinophils | | 10*3/uL | LAB | | + + + + + + | Absolute | 0.06 | 0.00 - 0.10 | EXTERNAL | | | Basophils | | 10*3/uL | LAB | | + + + + + + + + | Specimen | + + | Blood specimen | | (specimen) | + + + +---------+ + + | Performing | Address | City/State/Zipcode | Phone Number | | Organization | | | | + +---------+ + + | EXTERNAL LAB | | | | + +---------+ + + Lipase (10/22/2017 9:15 AM PDT) + +--------+ + + + | Component | Value | Ref Range | Performed | Pathologist | | | | | At | Signature | + +--------+ + + + | Lipase | 56 (L) | 73 - 393 U/L | EXTERNAL | | | | | | LAB | | + +--------+ + + + + + | Specimen | + + | Blood specimen | | (specimen) | + + + +---------+ + + | Performing | Address | City/State/Zipcode | Phone Number | | Organization | | | | + +---------+ + + | EXTERNAL LAB | | | | + +---------+ + + Amylase (10/22/2017 9:15 AM PDT) + +-------+ + + + | Component | Value | Ref Range | Performed | Pathologist | | | | | At | Signature | + +-------+ + + + | Amylase | 34 | 25 - 115 U/L | EXTERNAL | | | | | | LAB | | + +-------+ + + + + + | Specimen | + + | Blood specimen | | (specimen) | + + + +---------+ + + | Performing | Address | City/State/Zipcode | Phone Number | | Organization | | | | + +---------+ + + | EXTERNAL LAB | | | | + +---------+ + + Comprehensive Metabolic Panel (10/22/2017 9:15 AM PDT) + + + + + + | Component | Value | Ref Range | Performed | Pathologist | | | | | At | Signature | + + + + + + | Na | 141 | 135 - 145 | EXTERNAL | | | | | mmol/L | LAB | | + + + + + + | K | 4.2 | 3.5 - 4.9 | EXTERNAL | | | | | mmol/L | LAB | | + + + + + + | Cl | 101 | 99 - 109 mmol/L | EXTERNAL | | | | | | LAB | | + + + + + + | CO2 | 30 | 23 - 32 mmol/L | EXTERNAL | | | | | | LAB | | + + + + + + | Anion Gap | 14 | 5 - 20 mmol/L | EXTERNAL | | | | | | LAB | | + + + + + + | Glucose, | 89 | 65 - 99 mg/dL | EXTERNAL | | | Fasting | | | LAB | | + + + + + + | BUN | 13 | 8 - 25 mg/dL | EXTERNAL | | | | | | LAB | | + + + + + + | Creatinine | 0.7 | 0.50 - 1.00 | EXTERNAL | | | | | mg/dL | LAB | | + + + + + + | BUN/Creatin | 19 | | EXTERNAL | | | ine Ratio | | | LAB | | + + + + + + | Calcium | 9.3 | 8.5 - 10.5 | EXTERNAL | | | | | mg/dL | LAB | | + + + + + + | Protein, | 6.7 | 6.3 - 8.2 g/dL | EXTERNAL | | | Total | | | LAB | | + + + + + + | Albumin | 4.1 | 3.3 - 4.8 g/dL | EXTERNAL | | | | | | LAB | | + + + + + + | Globulin | 2.6 | 1.3 - 4.9 g/dL | EXTERNAL | | | | | | LAB | | + + + + + + | A/G Ratio | 1.6 | 1.0 - 2.4 | EXTERNAL | | | | | | LAB | | + + + + + + | Bilirubin | 0.6 | 0.1 - 1.5 mg/dL | EXTERNAL | | | Total | | | LAB | | + + + + + + | ALP, | 83 | 35 - 115 U/L | EXTERNAL | | | External | | | LAB | | + + + + + + | AST | 4 (L) | 10 - 45 U/L | EXTERNAL | | | | | | LAB | | + + + + + + | ALT | 23 | 10 - 65 U/L | EXTERNAL | | | | | | LAB | | + + + + + + | Estimated | >60Comment: GFR <60: | mL/min/1.73_m2 | EXTERNAL | | | GFR | CHRONIC KIDNEY DISEASE, | | LAB | | | | IF FOUND OVER A 3 MONTH | | | | | | PERIOD. GFR <15: KIDNEY | | | | | | FAILURE. FOR | | | | | | AMERICANS, MULTIPLY THE | | | | | | CALCULATED GFR BY 1.210. | | | | | | This eGFR is calculated | | | | | | using the MDRD IDMS | | | | | | traceable equation. | | | | + + + + + + + + | Specimen | + + | Blood specimen | | (specimen) | + + + +---------+ + + | Performing | Address | City/State/Zipcode | Phone Number | | Organization | | | | + +---------+ + + | EXTERNAL LAB | | | | + +---------+ + + documented in this encounter Visit Diagnoses Not on filedocumented in this encounter"
--- OUTSIDE RECORDS SUMMARY | ~2019-06-30 | XMS | Encounter Summary ---
Demographics + + + | Address | [address] | | | [place] [address] | + + + | Home Phone | | + + + | Preferred Language | Unknown | + + + | Marital Status | | + + + | Denominational Affiliation | 1041 | + + + [...] Team Providers + +------+ + | Care Hot Mill Operator Name | Role | Phone | + +------+ + | Fabrice Hansen DO | PCP | | + +------+ + Reason for Visit +---------+ + | Reason | Comments | +---------+ + | Results | | +---------+ + Encounter Details +--------+ + + + + | Date | Type | Department | Care Team | Description | +--------+ + + + + | 10/13/ | Telephone | [facility] | Fabrice Hansen | Results | | 2019 | | [facility] | DO [address] | | | | | [address] | [address] | | | | | [address] | [address] [place], [place] | | | | | [place], [place] | [address] | | | | | [address] | | | | | | [phone] | | | +--------+ + + + + Social History + +-------+ +--------+------+ | Tobacco Use | Types | Packs/Day | Years | Date | | | | | Used | | + +-------+ +--------+------+ | Current Every Day | | 1 | | | | Smoker | | | | | + +-------+ +--------+------+ + +---+---+---+ | Smokeless Tobacco: | | | | | Never Used | | | | + +---+---+---+ + + +---------+ + | Alcohol Use | Drinks/Week | oz/Week | Comments | + + +---------+ + | Yes | 2 Glasses of wine | 2.0 | Alcoholic | | | | | Drinks/day: Weekly | + + +---------+ + + + [...] | | | | | [place] [address] | | | | | | [phone] | | | | | | | | +--------+---------+ + + + documented as of this encounter Visit Diagnoses Not on filedocumented in this encounter"
--- OUTSIDE RECORDS SUMMARY | ~2019-06-30 | XMS | Encounter Summary ---
Demographics + + + | Address | [address] | | | [place] [address] | + + + | Home Phone | | + + + | Preferred Language | Unknown | + + + | Marital Status | | + + + | Mormon Affiliation | 1041 | + + + | Race | Unknown | + + + | Ethnic Group | Unknown | + + + Author + + + | Author | [facility] | | | and [place] | + + + | Organization | [facility] | | | [...] Team Providers + +------+ + | Care Construction Controller Name | Role | Phone | + +------+ + | Filemon Roy MD | PCP | | + +------+ + Encounter Details +--------+ + + + + | Date | Type | Department | Care Team | Description | +--------+ + + + + | 07/20/ | Hospital | [facility] | Conversion | | | 2018 | Encounter | [facility] | Transaction, | | | | | [address] | Provider Unknown | | | | | [place], [place] | [phone] | | | | | [address] | | | | | | [phone] | | | +--------+ + + + [...] + + documented as of this encounter Medications at Time of Discharge [...] + + + +---------+ + + | budesonide | Inhale 1 puff into | | 0 | 03/01/19 | | | (PULMICORT | the lungs 2 (two) | | | 16 | 9 | | FLEXHALER) 180 | times daily. | | | | | | mcg/puff inhaler | | | | | | + + + +---------+ + + | ibuprofen | Take 600 mg by mouth | | 0 | 03/03/19 | | | (ADVIL,MOTRIN) 600 | every 6 (six) hours | | | 18 | 9 | | MG tablet | as needed for Pain | | | | | | | (3 x per week). | | | | | + + + +---------+ + + | Methylcellulose, | Take by mouth | | 0 | 03/03/19 | | | Laxative, (CITRUCEL) | daily. | | | 18 | 9 | | 500 MG TABS | | | | | | + + + +---------+ + + | Multiple | Take 1 tablet by | | 0 | 03/20/19 | | | Vitamins-Minerals | mouth daily. | | | 16 | 9 | | (MULTIVITAMIN WITH | | | | | | | MINERALS) tablet | | | | | | [...] | | | | | [place] [address] | | | | | | [phone] | | | | | | | | +--------+---------+ + + + documented as of this encounter Visit Diagnoses Not on filedocumented in this encounter"
--- OUTSIDE RECORDS SUMMARY | ~2019-06-30 | XMS | Encounter Summary ---
Demographics + + + | Address | [address] | | | [place] [address] | + + + | Home Phone | | + + + | Preferred Language | Unknown | + + + | Marital Status | | + + + | Religion Affiliation | 1041 | + + + | Race | Unknown | + + + | Ethnic Group | Unknown | + + + Author + + + | Author | [facility] | | | and [place] | + + + | Organization | [facility] | | | [...] Team Providers + +------+ + | Care Ballet Teacher Name | Role | Phone | + +------+ + | Fabrice Hansen DO | PCP | | + +------+ + Reason for Visit +--------+ + | Reason | Comments | +--------+ + | Other | requesting to speak to provider | +--------+ + Encounter Details +--------+ + + + + | Date | Type | Department | Care Team | Description | +--------+ + + + + | 12/07/ | Telephone | [facility] | Meme Le | Other (requesting to | | 2018 | | GASTROENTEROLOGY | A, RESEARCH QUALITY ASSURANCE ANALYST [address] | speak to provider) | | | | [address] | [place] [address] | | | | | [place], [place] | [phone] | | | | | [address] | | | | | | [phone] | | | +--------+ + + + [...] | 07/18/ | Office | Cardiology | AugustacoleErin egan | | | 2019 | Visit | | [address] | | | | | | [place] | | | | | | [place] [address] | | | | | | [phone] | | | | | | | | +--------+---------+ + + + documented as of this encounter Visit Diagnoses Not on filedocumented in this encounter"
--- OUTSIDE RECORDS SUMMARY | ~2019-06-30 | XMS | Encounter Summary ---
Demographics + + + | Address | [address] | | | [place] [address] | + + + | Home Phone | | + + + | Preferred Language | Unknown | + + + | Marital Status | | + + + | Taoist Affiliation | 1041 | + + + | Race | Unknown | + + + | Ethnic Group | Unknown | + + + Author + + + | Author | [facility] | | | and [place] | + + + | Organization | [facility] | | | and [...] Team Providers + +------+ + | Care Studio Artist Name | Role | Phone | + +------+ + | Fabrice Hansen DO | PCP | | + +------+ + Encounter Details +--------+ + + + + | Date | Type | Department | Care Team | Description | +--------+ + + + + | 12/08/ | Orders Only | [facility] | Fabrice Hansen | | | 2018 | | [facility] | [address] | | | | | [facility] [address] | [address] | | | | | [address] | [address] [place], [place] | | | | | [place], [place] | [address] | | | | | [address] | | | | | | [phone] | | | +--------+ + + + [...] [place] | | | | | | [place] [address] | | | | | | [phone] | | | | | | | | +--------+---------+ + + + documented as of this encounter Visit Diagnoses Not on filedocumented in this encounter"
--- OUTSIDE RECORDS SUMMARY | ~2019-06-30 | XMS | Encounter Summary ---
Demographics + + + | Address | [address] | | | [place] [address] | + + + | Home Phone | | + + + | Preferred Language | Unknown | + + + | Marital Status | | + + + | Zoroastrianism Affiliation | 1041 | + + + | Race | Unknown | + + + | Ethnic Group | Unknown | + + + Author + + + | Author | [facility] | | | and [place] | + + + | Organization | [facility] | | | and [...] Team Providers + +------+ + | Care Youth Development Professional Name | Role | Phone | + +------+ + | Filemon Roy MD | PCP | | + +------+ + Encounter Details +--------+ + + + + | Date | Type | Department | Care Team | Description | +--------+ + + + + | 08/06/ | Hospital | [facility] | Conversion | Coronary artery | | 2018 | Encounter | [facility] | Transaction, | disease involving | | | | [address] | Provider Unknown | tunica-biloxi coronary | | | | [place], [place] | [phone] | artery of tunica-biloxi | | | | [address] | | heart with angina | | | | [phone] | Erin Limon | pectoris ([facility]); | | | | | [address] | Ascending aortic | | | | | [address] | aneurysm ([facility]); | | | | | [place] [address] | Smoker; Lung nodule, | | | | | [phone] | solitary | | | | | | | [...] [place] | | | | | | [place] [address] | | | | | | [phone] | | | | | | | | +--------+---------+ + + + documented as of this encounter Procedures + +--------+ + + + | Procedure Name | Priori | Date/Time | Associated Diagnosis | Comments | | | ty | | | | + +--------+ + + + | CT ANGIOGRAM CHEST W | Routin | 08/06/2017 | | Results for this | | CONTRAST | e | 10:16 AM | | procedure are in the | | | | PDT | | results section. | + +--------+ + + + documented in this encounter Results CT Angiogram Chest W Contrast (08/06/2017 10:16 AM PDT) + + | Specimen | + + | | + + + + + | Impressions | Performed At | + + + | 1. Stable fusiform aneurysmal dilatation of the ascending aorta | | | measuring up to 4 cm AP dimension. 2. Median sternotomy with CABG. | | | 3. Stable right upper lobe pulmonary nodules, benign. No further | | | follow-up of these nodules is recommended. | | + + + + + + | Narrative | Performed At | + + + | HISTORY: Follow-up ascending aortic aneurysm. Lung nodule. | | | COMPARISON: None. TECHNIQUE: 5-mm axial CT images of the chest | | | were acquired using automated exposure control without intravenous | | | contrast. Subsequently axial 0.625 mm arterial phase images were | | | acquired through the chest according to a CT angiography protocol. | | | Multiplanar CT angiographic MIP reconstructions were performed | | | from the arterial phase data set. 3-D reconstructions were performed | | | using the Stand Offer 3-D software and sent to PACS. Oral Contrast: | | | None IV contrast: 100 mL IsoVue 370 FINDINGS: Stable 2 mm | | | nodule along the pleural-based posterior right upper lobe sequence 6 | | | image 24, with stable less defined 4 mm nodule in the anterior right | | | upper lobe sequence 6 image 25. Lack of change indicates these are | | | benign. Median sternotomy. CABG. LAD graft arising from the | | | anterior proximal ascending aorta, patent. Fusiform dilatation of | | | the ascending aorta, measuring up to 4.0 cm AP by 3.9 cm transverse | | | sequence 6 image 45, stable. No mural thrombus or dissection. Aortic | | | valve plane, sinuses of Valsalva, and sinotubular junction of the | | | ascending aorta appear unremarkable. Trifurcation, proximal | | | common carotid, right brachiocephalic, bilateral subclavian arteries | | | are unremarkable. Descending thoracic aorta with minimal soft and | | | calcified plaque. Celiac, SMA, bilateral single renal artery origins | | | are unremarkable. Scans through the upper abdomen show clips in | | | the gallbladder fossa, otherwise unremarkable. Bone windows show mild | | | spondylotic changes of the spine with reversed S-shaped scoliosis of | | | mild degree involving the thoracic spine. | | + + + + + | Procedure Note | + + | Dex, Rad Conversion - 09/22/2018 3:26 AM PDT HISTORY:Follow-up ascending aortic | | aneurysm. Lung nodule. COMPARISON:None. TECHNIQUE:5-mm axial CT images of the chest were | | acquired using automated exposure control without intravenous contrast. Subsequently | | axial 0.625 mm arterial phase images were acquired through the chest according to a CT | | angiography protocol. Multiplanar CT angiographic MIP reconstructions were performed | | from the arterial phase data set. 3-D reconstructions were performed using the | | Stand Offer 3-D software and sent to PACS. Oral Contrast: NoneIV contrast: 100 mL IsoVue | | 370 FINDINGS:Stable 2 mm nodule along the pleural-based posterior right upper lobe | | sequence 6 image 24, with stable less defined 4 mm nodule in the anterior right upper | | lobe sequence 6 image 25. Lack of change indicates these are benign. Median sternotomy. | | CABG. LAD graft arising from the anterior proximal ascending aorta, patent. Fusiform | | dilatation of the ascending aorta, measuring up to 4.0 cm AP by 3.9 cm transverse | | sequence 6 image 45, stable. No mural thrombus or dissection. Aortic valve plane, | | sinuses of Valsalva, and sinotubular junction of the ascending aorta appear | | unremarkable. Trifurcation, proximal common carotid, right brachiocephalic, bilateral | | subclavian arteries are unremarkable. Descending thoracic aorta with minimal soft and | | calcified plaque. Celiac, SMA, bilateral single renal artery origins are unremarkable. | | Scans through the upper abdomen show clips in the gallbladder fossa, otherwise | | unremarkable. Bone windows show mild spondylotic changes of the spine with reversed | | S-shaped scoliosis of mild degree involving the thoracic spine. IMPRESSION: 1. Stable | | fusiform aneurysmal dilatation of the ascending aorta measuring up to 4 cm AP | | dimension.2. Median sternotomy with CABG.3. Stable right upper lobe pulmonary nodules, | | benign. No further follow-up of these nodules is recommended. | | | |Scans through the upper abdomen show clips in the gallbladder fossa, otherwise unremarkable . Bone windows show mild spondylotic changes of the spine with reversed S-shaped scoliosis o f mild degree involving the thoracic spine. | | | |IMPRESSION: | |1. Stable fusiform aneurysmal dilatation of the ascending aorta measuring up to 4 cm AP di mension. | |2. Median sternotomy with CABG. | |3. Stable right upper lobe pulmonary nodules, benign. No further follow-up of these nodule s is recommended. 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
--- OUTSIDE RECORDS SUMMARY | ~2019-06-30 | XMS | Encounter Summary ---
Demographics + + + | Address | [address] | | | [place] [address] | + + + | Home Phone | | + + + | Preferred Language | Unknown | + + + | Marital Status | | + + + | Lutheran Affiliation | 1041 | + + + | Race | Unknown | + + + | Ethnic Group | Unknown | + + + Author + + + | Author | [facility] | | | and [place] | + + + | Organization | [facility] | | | [...] Team Providers + +------+ + | Care Senior Commissary Agent Name | Role | Phone | + +------+ + | Fabrice Hansen DO | PCP | | + +------+ + Encounter Details +--------+ + + + + | Date | Type | Department | Care Team | Description | +--------+ + + + + | 02/21/ | Orders Only | [facility] | Tom Limon MD | | | 2020 | | and Pan[facility] | [address] [place] | | | | | [address] | [address] [place], [place] | | | | | [address] | [address] | | | | | [place] | | | | | | [address] | | | | | | [phone] | | | +--------+ + + + [...] [place] | | | | | | [place] [address] | | | | | | [phone] | | | | | | | | +--------+---------+ + + + documented as of this encounter Visit Diagnoses Not on filedocumented in this encounter"
--- OUTSIDE RECORDS SUMMARY | ~2019-06-30 | XMS | Clinical Summary ---
Demographics + + + | Address | [address] | | | [place] [address] | + + + | Home Phone | | + + + | Preferred Language | Unknown | + + + | Marital Status | | + + + | Tenriism Affiliation | 1041 | + + + | Race | Unknown | + + + | Ethnic Group | Unknown | + + + Author + + + | Author | [facility] | | | and [place] | + + + | Organization | [facility] | | | and [...] Team Providers + +------+ + | Care Electrician Marine Name | Role | Phone | + +------+ + | Fabrice Hansen DO | PCP | | + +------+ + Allergies + + + + + + | Active Allergy | Reactions | Severity | Noted | Comments | | | | | Date | | + + + + + + | Varenicline | Anxiety | Low | 03/03/19 | Agitation, Extreme | | | | | 18 | agitation and mood | | | | | | changes and nausea | + + + + + + | Morphine | Anxiety, | High | 09/29/19 | Agitation | | | Hallucination | | 13 | | + + + + + + | Penicillins | Hives | Medium | 09/29/19 | Hives | | | | | 13 | | + + + + + + | Sulfa Antibiotics | Hives | Medium | 09/29/19 | Hives | | | | | 13 | | + + + + + + | Bupropion | Hives | Medium | 03/03/19 | Hives | | | | | 18 | | + + + + + + Medications + + + +---------+------+------+-------+ | Medication | Sig | Dispensed | Refills | Star | End | Statu | | | | | | t | Date | s | | | | | | Date | | | + + + +---------+------+------+-------+ | fluticasone | 1 spray by Nasal | | 0 | | | Activ | | (FLONASE) 50 | route Twice daily | | | | | e | | mcg/nasal spray | as needed for | | | | | | | | Allergies. | | | | | | + + + +---------+------+------+-------+ | lisinopril | Take 10 mg by mouth | | 0 | 04/2 | | Activ | | (PRINIVIL, ZESTRIL) | Daily. | | | 3/20 | | e | | 10 mg tablet | | | | 19 | | | + + + +---------+------+------+-------+ | triamcinolone | Apply 0.025 Units | | 0 | 10/3 | | Activ | | (KENALOG) 0.025% | topically as needed | | | 0/20 | | e | | ointment | for Rash. | | | 18 | | | + + + +---------+------+------+-------+ | traZODone | Take 75-150 mg by | | 0 | 06/1 | | Activ | | (DESYREL) 150 MG | mouth nightly. | | | 7/20 | | e | | tablet | Mostly takes 75 mg | | | 19 | | | + + + +---------+------+------+-------+ | nitroglycerin | Place 0.4 mg under | | 0 | 10/3 | | Activ | | (NITROSTAT) 0.4 mg | the tongue every 5 | | | 0/20 | | e | | SL tablet | minutes as needed | | | 18 | | | | | for Chest pain. | | | | | | + + + +---------+------+------+-------+ | aspirin 81 mg | Take 81 mg by mouth | | 0 | 08/2 | | Activ | | chewable tablet | daily with | | | 0/20 | | e | | | breakfast. | | | 13 | | | + + + +---------+------+------+-------+ | acetaminophen | Take 500 mg by mouth | | 0 | | | Activ | | (TYLENOL) 500 mg | every 6 hours as | | | | | e | | tablet | needed for Pain. | | | | | | + + + +---------+------+------+-------+ | albuterol 90 | Inhale 2 puffs into | | 0 | | | Activ | | mcg/puff inhaler | the lungs every 6 | | | | | e | | | hours as needed for | | | | | | | | Wheezing. | | | | | | + + + +---------+------+------+-------+ | multiple vitamins | Take 1 tablet by | | 0 | | | Activ | | w/minerals | mouth Daily. | | | | | e | | (OCUVITE-LUTEIN) | | | | | | | | TABS | | | | | | | + + + +---------+------+------+-------+ | naproxen sodium | Take 220 mg by mouth | | 0 | | | Activ | | (ANAPROX) 220 MG | as needed. | | | | | e | | tablet | | | | | | | + + + +---------+------+------+-------+ | atorvaSTATin | TAKE 1 TABLET BY | 90 | 0 | 02/1 | | Activ | | (LIPITOR) 40 mg | MOUTH NIGHTLY | tablet | | 0/20 | | e | | tablet | | | | 20 | | | + + + +---------+------+------+-------+ | oseltamivir | Take 1 capsule by | 10 | 0 | 02/2 | | Activ | | (TAMIFLU) 75 mg | mouth 2 times daily. | capsule | | 5/20 | | e | | capsuleIndications: | Indications: Flu | | | 20 | | | | Influenza | | | | | | | + + + +---------+------+------+-------+ | venlafaxine | TAKE 3 TABLETS BY | 360 | 3 | 05/0 | | Activ | | (EFFEXOR) 75 MG | MOUTH IN THE MORNING | tablet | | 1/20 | | e | | tabletIndications: | AND 1 TABLET IN THE | | | 20 | | | | Depression, | EVENING | | | | | | | unspecified | | | | | | | | depression type | | | | | | | + + + +---------+------+------+-------+ | levothyroxine | TAKE ONE TABLET BY | 90 | 3 | 05/0 | | Activ | | (SYNTHROID) 50 mcg | MOUTH ONE TIME DAILY | tablet | | 1/20 | | e | | tabletIndications: | BEFORE BREAKFAST | | | 20 | | | | Other specified | | | | | | | | hypothyroidism | | | | | | | + + + +---------+------+------+-------+ | VENTOLIN HFA 108 | Inhale 1 puff into | 1 | 3 | 05/0 | | Activ | | (90 Base) MCG/ACT | the lungs as needed. | Inhaler | | 1/20 | | e | | inhalerIndications: | | | | 20 | | | | Chronic obstructive | | | | | | | | pulmonary disease, | | | | | | | | unspecified COPD | | | | | | | | type (HCC) | | | | | | | + + + +---------+------+------+-------+ | levothyroxine | TAKE ONE TABLET BY | 90 | 0 | 01/2 | 05/0 | Disco | | (SYNTHROID) 50 mcg | MOUTH ONE TIME DAILY | tablet | | 10/29 | 1/20 | ntinu | | tablet | BEFORE BREAKFAST | | | 20 | 20 | ed | | | | | | | | (Reor | | | | | | | | jaon) | + + + +---------+------+------+-------+ | venlafaxine | TAKE 3 TABLETS BY | 360 | 0 | 03/0 | 05/0 | Disco | | (EFFEXOR) 75 MG | MOUTH IN THE MORNING | tablet | | 9/20 | 1/20 | ntinu | | tablet | AND 1 TABLET IN THE | | | 20 | 20 | ed | | | EVENING | | | | | (Reor | | | | | | | | joan) | + + + +---------+------+------+-------+ Active Problems + + + | Problem | Noted Date | + + + | Obstructive sleep apnea syndrome | 02/23/2019 | + + + | Hx of CABG | 12/21/2018 | + + + | History of PTCA | 12/21/2018 | + + + | Regional wall motion abnormality of heart | 12/21/2018 | + + + | Ascending aortic aneurysm | 12/21/2018 | + + + | Other specified hypothyroidism | 12/21/2018 | + + + | Intrahepatic bile duct dilation | 11/19/2018 | + + + + + | Overview: Added automatically from request for surgery | | [id number] | + + + + + | Calculus of bile duct with cholangitis and obstruction, | 11/05/2018 | | unspecified cholangitis acuity | | + + + + + | Overview: Added automatically from request for surgery | | [id number] | + + + + + | Liver abscess | 03/05/2018 | + + + | Left wrist sprain | 08/03/2017 | + + + | Pharyngoesophageal dysphagia | 06/16/2017 | + + + + + | Overview: Added automatically from request for surgery [id number] | + + + + + | Screening for colorectal cancer | 06/16/2017 | + + + + + | Overview: Added automatically from request for surgery [id number] | + + + + + | Change in bowel movement | 06/16/2017 | + + + + + | Overview: Added automatically from request for surgery [id number] | + + + + + | GERD | 10/18/2012 | + + + | Depression | 10/18/2012 | + + + | HLD (hyperlipidemia) | 10/18/2012 | + + + | Smoker | 10/18/2012 | + + + | Hypertension goal BP (blood pressure) < 130/80 | 10/18/2012 | + + + | COPD | 10/18/2012 | + + + | CAD (coronary artery disease) | 10/18/2012 | + + + | Osteoarthritis | 10/18/2012 | + + + | History of ID | 10/18/2012 | + + + | Carpal tunnel syndrome of right wrist | 09/02/2012 | + + + Resolved Problems + + + + | Problem | Noted | Resolved | | | Date | Date | + + + + | Septic shock | 02/23/19 | | | | 19 | 9 | + + + + Encounters +--------+ + + + + | Date | Type | Specialty | Care Team | Description | +--------+ + + + + | 06/09/ | Refill | Family Medicine | Fabrice Hansen | Medication Refill | | 2019 | | | DO Lucius | | +--------+ + + + + | 04/16/ | Refill | Family Medicine | Fabrice Hansen | Medication Refill | | 2019 | | | DO Lucius | | +--------+ + + + + | 04/05/ | Telephone | Family Medicine | Fabrice Hansen | Other (requesting | | 2019 | | Edy Kan DO | mak script) | +--------+ + + + + from Last 3 Months Immunizations + + + + | Name | Administration Dates | Next Due | + + + + | INFLUENZA 66 Y OR >, | 11/19/2017, 12/17/2013, 12/28/2012 | | | TRIVALENT HIGH-DOSE | | | + + + + | INFLUENZA PF 66 Y OR | 12/23/2016 | | | >,TRIVALENT (FLUAD) | | | + + + + | INFLUENZA PF | 12/26/2011, 04/10/2010 | | | TRIVALENT(PED/ADOL/A | | | | DULT), PSKT | | | + + + + | INFLUENZA TRIV | 01/10/2015 | | | W/PRES(PED/ADOL/ADUL | | | | T),MULTIDOSE | | | + + + + | PNEUMOCOCCAL | 02/24/2018, 09/21/2014 | | | CONJUGATE 13-VALENT | | | | (PCV13) | | | + + + + | TDAP, (ADOL/ADULT) | 08/26/2011 | | + + + + | ZOSTER, 1 DOSE | 08/26/2011 | | | (ZOSTAVAX) | | | + + + + Family History + + +------+ + | Medical History | Relation | Name | Comments | + + +------+ + | Colon polyps | Brother | | | + + +------+ + | Colon cancer | Brother | | | + + +------+ + | Colon polyps | Father | | | + + +------+ + | Cancer | Other | | | + + +------+ + | Heart disease | Other | | | + + +------+ + | Hypertension | Other | | | + + +------+ + | Diabetes | Other | | | + + +------+ + | Colon polyps | Sister | | | + + +------+ + + +------+--------+ + | Relation | Name | Status | Comments | + +------+--------+ + | Brother | | | | + +------+--------+ + | Brother | | | | + +------+--------+ + | Father | | | | + +------+--------+ + | Other | | | | + +------+--------+ + | Other | | | | + +------+--------+ + | Other | | | | + +------+--------+ + | Other | | | | + +------+--------+ + | Sister | | | | + +------+--------+ + Social History + + + +--------+------+ [...] recent travel history available. | + + Last Filed Vital Signs + + + + + | Vital Sign | Reading | Time Taken | Comments | + + + + + | Blood Pressure | 118/70 | 02/23/2019 9:29 AM | | | | | PST | | + + + + + | Pulse | 72 | 02/23/2019 9:29 AM | | | | | PST | | + + + + + | Temperature | 36.4 C (97.5 F) | 01/10/2019 2:13 PM | | | | | PST | | + + + + + | Respiratory Rate | 16 | 01/01/2019 8:00 AM | | | | | PST | | + + + + + | Oxygen Saturation | 100% | 02/23/2019 9:29 AM | | | | | PST | | + + + + + | Inhaled Oxygen | - | - | | | Concentration | | | | + + + + + | Weight | 62.3 kg (137 lb 4.8 | 02/23/2019 9:29 AM | | | | oz) | PST | | + + + + + | Height | 162.6 cm (5' 4") | 02/23/2019 9:29 AM | | | | | PST | | + + + + + | Body Mass Index | 23.57 | 02/23/2019 9:29 AM | | | | | PST | | + + + + + Plan of Treatment +--------+---------+ + + + | Date | Type | Specialty | Care Team | Description | +--------+---------+ + + + | 07/18/ | Office | Cardiology | AugustacoleErin egan | | | 2020 | Visit | | [address] | | | | | | [address] | | | | | | [place] [address] | | | | | | [phone] | | | | | | | | +--------+---------+ + + + + + + + + | Health Maintenance | Due Date | Last Done | Comments | + + + + + | Hepatitis C | | | | | Screening | 7 | | | + + + + + | Breast Cancer | | | | | Screening | 2 | | | + + + + + | Vaccine: Zoster (2 | | 08/26/2011 | | | of 3) | 2 | | | + + + + + | Adult Annual | | | | | Wellness Visit | 9 | | | + + + + + | Vaccine: | | 02/24/2018, 09/21/2014 | | | Pneumococcal 65+ (2 | 0 | | | | of 2 - PPSV23) | | | | + + + + + | Vaccine: | | 08/26/2011 | | | Dtap/Tdap/Td (2 - | 2 | | | | Td) | | | | + + + + + | Colorectal Cancer | | 07/10/2017 | | | Screening | 8 | | | | (Colonoscopy) | | | | + + + + + | Vaccine: Influenza | Completed | 12/28/2018, 11/19/2017, | | | | | 12/23/2016, Additional history | | | | | exists | | + + + + + Implants + +-------+--------+ +--------+--------+--------+ | Implanted | Type | Area | Manufacture | Device | Shelf | Model | | | | | r | | Expira | / | | | | | | Identi | tion | Serial | | | | | | fier | Date | / Lot | + +-------+--------+ +--------+--------+--------+ | Stent Bili Advnx Cb 10fr 7cm | Stent | N/A: | [employer] | | | [id number] | | - [id number]: Qty: 1 | | Pancre | SCIENTIFIC | | | 360 / | | on 11/09/2018 by Jay, | | as | MYRIAM - BSCI | | | / | | MD Bac[facility] at [facility] | | | | | | | | [facility] | | | | | | | + +-------+--------+ +--------+--------+--------+ Results Not on filefrom Last 3 Months Insurance + +--------+ +--------+ +---------+--------+ | Payer | Benefi | Subscriber | Effect | Phone | Address | Type | | | t Plan | ID | mikey | | | | | | / | | Dates | | | | | | Group | | | | | | + +--------+ +--------+ +---------+--------+ | AARP | AARP | [id number] | 02/09/19 | [phone] | | Indemn | | | MDCR | | 15-Pre | 0 | | ity | | | SUPPL | | sent | | | | + +--------+ +--------+ +---------+--------+ | MEDICARE | MEDICA | [id number] | 06/10/19 | [phone] | | Medica | | | RE | | 12-Pre | 5 | | re | | | PART A | | sent | | | | | | AND B | | | | | | + +--------+ +--------+ +---------+--------+ | AARP | AARP | [id number] | 02/09/19 | [phone] | | Indemn | | | MDCR | | 19-Pre | 0 | | ity | | | SUPPL | | sent | | | | + +--------+ +--------+ +---------+--------+ | MEDICARE | MEDICA | [id number] | 06/10/19 | [phone] | | Medica | | | RE | | 12-Pre | 5 | | re | | | PART A | | sent | | | | | | AND B | | | | | | + +--------+ +--------+ +---------+--------+ + +--------+ +--------+ + + | Guarantor Name | Accoun | Relation to | Date | Phone | Billing Address | | | t Type | Patient | of | | | | | | | | | | + +--------+ +--------+ + + | [address] | Person | Self | [birth year] | [address] | | | al/Fam | | 1946 | [phone] | [place] | | | lesa | | | 0 (Home) | [address] | + +--------+ +--------+ + + | [address] | Person | Self | [birth year] | | [address] | | | al/Fam | | 1946 | [phone] | [place], [place] | | | [place]a | | | 0 (Home) | [phone] | + +--------+ +--------+ + + Advance Directives + + + + + | Type | Date Recorded | Patient | Explanation | | | | Minister Assistant | | + + + + + | Power of | | | | | Lever Operator | | | | + + + + + | Advance | 11/08/2018 5:20 | | at home | | Directive | PM | | | + + + + + + + + + + | Code Status | Date | Date | Comments | | | Activated | Inactivated | | + + + + + | Full Code | 12/31/2018 | 01/01/2019 | | | | 4:04 PM | 3:26 PM | | + + + + + + + + +---+ | | | | | + + + +---+ | Full Code | 11/09/2018 | 11/11/2018 | | | | 7:13 PM | 7:28 PM | | + + + +---+
--- OUTSIDE RECORDS SUMMARY | ~2019-06-30 | XMS | Encounter Summary ---
Demographics + + + | Address | [address] | | | [place] [address] | + + + | Home Phone | | + + + | Preferred Language | Unknown | + + + | Marital Status | | + + + | Mormonism Affiliation | 1041 | + + + | Race | Unknown | + + + | Ethnic Group | Unknown | + + + Author + + + | Author | [facility] | | | and Luisana | + + + | Organization | [facility] | | | [...] Team Providers + +------+ + | Care Forming And Assembling Supervisor Name | Role | Phone | + +------+ + | Fabrice Hansen DO | PCP | | + +------+ + Encounter Details +--------+ + + + + | Date | Type | Department | Care Team | Description | +--------+ + + + + | 04/15/ | Orders Only | [facility] | Erin Limon | | | 2018 | | [address] | [address] | | | | | ECHO [address] | [address] | | | | | [place] | [place] [address] | | | | | [address] | [phone] | | | | | [phone] | | | +--------+ + + + [...] | +--------+---------+ + + + | 07/18/ Office | Cardiology | Erin Limon | | | 2020 | Visit | | [address] | | | | | | [address] | | | | | | [place] [address] | | | | | | [phone] | | | | | | | | +--------+---------+ + + + documented as of this encounter Procedures + +--------+ + + + | Procedure Name | Priori | Date/Time | Associated Diagnosis | Comments | | | ty | | | | + +--------+ + + + | ECHO COMPLETE | Routin | 04/15/2017 | | Results for this | | | e | 2:06 PM | | procedure are in the | | | | PST | | results section. | + +--------+ + + + documented in this encounter Results ECHO Complete (04/15/2017 2:06 PM PST) + + | Specimen | + + | | + + + + + | Impressions | Performed At | + + + | 1. Overall left ventricular systolic function is normal with, an EF | | | between 55 - 60 %. 2. The diastolic filling pattern indicates | | | impaired relaxation consistent with mild dysfunction (Grade I). WMA as | | | above. 3. There is mild aortic regurgitation. 4. The ascending | | | aorta is dilated measuring up to 3.9cm. | | + + + + + + | Narrative | Performed At | + + + | Patient Name: PACHECO LEMUS Date of : 1945 | | | Performing Physician: Marshall Gutierrez MD, | | | FACC, FACP, FASNC | | | | | | INDICATIONS CAD, ASC AO aneurysm, HX of NC, HX of CABG, | | | COPD CONCLUSIONS 1. Overall left ventricular | | | systolic function is normal with, an EF between 55 - 60 %. 2. The | | | diastolic filling pattern indicates impaired relaxation consistent | | | with mild dysfunction (Grade I). WMA as above. 3. There is mild | | | aortic regurgitation. 4. The ascending aorta is dilated measuring up | | | to 3.9cm. FINDINGS -------- ECG rhythm: Resting bradycardia | | | (HR<60bpm). ECG rhythm: Frequent ventricular premature beats. | | | Study: A 2-dimensional transthoracic echocardiogram with m-mode, | | | spectral and color flow Doppler was perfomed. Study: This was a | | | technically adequate study. Left Ventricle: Overall left ventricular | | | systolic function is normal with, an EF between 55 - 60 %. Left | | | Ventricle: The left ventricle cavity size is normal. Left Ventricle: | | | Left ventricular wall thickness is normal. Left Ventricle: The | | | diastolic filling pattern indicates impaired relaxation consistent | | | with mild dysfunction (Grade I). The following WMA were noted: Left | | | Ventricle: apical septum- akinetic; Left Ventricle: apex - akinetic; | | | Right Ventricle: The right ventricle is normal in size and function. | | | Left Atrium: The left atrium is normal in size. Right Atrium: The | | | right atrium is normal in size. Aortic Valve: The aortic valve is | | | mildly calcified. Aortic Valve: There is mild aortic regurgitation. | | | Aortic Valve: There is no evidence of aortic stenosis. Mitral Valve: | | | Mild mitral regurgitation is present. Mitral Valve: Mild mitral | | | annular calcification present. Tricuspid Valve: The tricuspid valve | | | appears structurally normal. Tricuspid Valve: Mild tricuspid | | | regurgitation present. Tricuspid Valve: The right ventricular | | | systolic pressure (pulmonary artery systolic pressure), as measured by | | | Doppler, is 22.04mmHg. Pulmonic Valve: The pulmonic valve is normal. | | | Pulmonic Valve: Mild pulmonic regurgitation. Pericardium: There is | | | no pericardial effusion. IVC/Hepatic Veins: The IVC is normal size | | | (1.5-2.5cm) and collapses >50% with sniff, consistent with central | | | venous pressures of 5-10mmHg. Aorta: The ascending aorta is dilated | | | measuring up to 3.9cm. Mass: No mass visualized Thrombus: No clot | | | visualized Septum: No ASD observed. Septum: No VSD observed. | | | MEASUREMENTS Ao asc: 3.94 cm IVC: 1.36 cm | | | EDV(Teich): 112.85 ml IVSd: 1.05 cm LVIDd: 4.90 cm LVPWd: | | | 0.76 cm LVOT Diam: 2.00 cm %FS: 31.45 % EF(Teich): | | | 59.17 % ESV(Teich): 46.07 ml LVIDs: 3.35 cm SV(Teich): | | | 66.78 ml LVEF MOD A2C: 47.41 % SV MOD A2C: 45.39 ml LVEF MOD | | | A4C: 44.40 % SV MOD A4C: 35.23 ml EF Biplane: 45.77 % | | | LVEDV MOD BP: 90.23 ml LVESV MOD BP: 48.93 ml LVEDV MOD A2C: | | | 95.73 ml LVLd A2C: 7.76 cm LVEDV MOD A4C: 79.35 ml LVLd | | | A4C: 7.17 cm LVESV MOD A2C: 50.33 ml LVLs A2C: 6.95 cm | | | LVESV MOD A4C: 44.12 ml LVLs A4C: 6.40 cm LAESV(A-L): 40.14 | | | ml LAESV Index (A-L): 23.34 ml/m2 LAAs A2C: 17.23 cm2 LAESV | | | A-L A2C: 50.02 ml LALs A2C: 5.04 cm LAAs A4C: 13.15 cm2 | | | LAESV A-L A4C: 30.62 ml LAESV MOD A4C: 27.81 ml LALs A4C: | | | 4.79 cm RAAs: 14.19 cm2 RAESV A-L: 36.36 ml RAESV MOD: | | | 33.98 ml RALs: 4.70 cm Ao Diam: 3.29 cm Ao/LA: 0.84 LA | | | Diam: 3.92 cm LA/Ao: 1.18 TAPSE: 2.11 cm AV Env.Ti: | | | 290.65 ms AV maxP.30 mmHg AV meanP.30 mmHg AV Vmax: | | | 1.44 m/s AV Vmean: 1.23 m/s AV VTI: 35.84 cm AVIVA Vmax: | | | 2.15 cm2 AVIVA (VTI): 2.08 cm2 AVAI Vmax: 0.00 cm2/m2 AVAI | | | (VTI): 0.00 cm2/m2 LVOT Env.Ti: 336.79 ms LVOT maxP.83 | | | mmHg LVOT meanP.19 mmHg LVSI Dopp: 43.55 ml/m2 LVSV Dopp: | | | 74.90 ml LVOT Vmax: 0.97 m/s LVOT Vmean: 0.70 m/s LVOT | | | VTI: 23.63 cm MV A Zen: 0.79 m/s MV Dec [place]: 2.67 m/s2 | | | MV DecT: 238.06 ms MV E Zen: 0.63 m/s MV E/A Ratio: 0.79 | | | E/E' Av.03 E' Av.06 m/s E/E' Lat: 8.56 E/E' Sept: | | | 12.11 E' Lat: 0.07 m/s E' Sept: 0.05 m/s PAEDP: 7.32 | | | mmHg PRend P.32 mmHg PRend Vmax: 0.76 m/s PV maxPG: | | | 4.53 mmHg PV Vmax: 1.06 m/s RAP: 5 mmHg RV S': 0.08 m/s | | | RVSP: 22.04 mmHg TR maxP.04 mmHg TR Vmax: 2.06 m/s | | | Sheet Metal Technician: PREET Authenticated by: Marshall Gutierrez MD, FACC, FACP, | | | FASNC Report Date/Time: 04-17-2017 9:33:30 | | + + + + + | Procedure Note | + + | Dex, Rad Conversion - 09/30/2018 3:02 PM PDT Patient Name: Kailash LEMUS of | | : 1945 Performing Physician: Marshall Gutierrez MD, [facility], | | FACP, | | FASNC INDICATIONS--------- | | --CAD, ASC AO aneurysm, HX of NC, HX of CABG, COPD CONCLUSIONS 1. Overall left | | ventricular systolic function is normal with, an EF between 55 - 60 %.2. The diastolic | | filling pattern indicates impaired relaxation consistent with mild dysfunction (Grade | | I). WMA as above.3. There is mild aortic regurgitation.4. The ascending aorta is dilated | | measuring up to 3.9cm. FINDINGS--------ECG rhythm: Resting bradycardia (HR<60bpm).ECG | | rhythm: Frequent ventricular premature beats.Study: A 2-dimensional transthoracic | | echocardiogram with m-mode, spectral and color flow Doppler was perfomed.Study: This was | | a technically adequate study.Left Ventricle: Overall left ventricular systolic function | | is normal with, an EF between 55 - 60 %.Left Ventricle: The left ventricle cavity size | | is normal.Left Ventricle: Left ventricular wall thickness is normal.Left Ventricle: The | | diastolic filling pattern indicates impaired relaxation consistent with mild dysfunction | | (Grade I). The following WMA were noted:Left Ventricle: apical septum- akinetic;Left | | Ventricle: apex - akinetic;Right Ventricle: The right ventricle is normal in size and | | function.Left Atrium: The left atrium is normal in size.Right Atrium: The right atrium | | is normal in size.Aortic Valve: The aortic valve is mildly calcified.Aortic Valve: There | | is mild aortic regurgitation.Aortic Valve: There is no evidence of aortic | | stenosis.Mitral Valve: Mild mitral regurgitation is present.Mitral Valve: Mild mitral | | annular calcification present.Tricuspid Valve: The tricuspid valve appears structurally | | normal.Tricuspid Valve: Mild tricuspid regurgitation present.Tricuspid Valve: The right | | ventricular systolic pressure (pulmonary artery systolic pressure), as measured by | | Doppler, is 22.04mmHg.Pulmonic Valve: The pulmonic valve is normal.Pulmonic Valve: Mild | | pulmonic regurgitation.Pericardium: There is no pericardial effusion.IVC/Hepatic Veins: | | The IVC is normal size (1.5-2.5cm) and collapses >50% with sniff, consistent with | | central venous pressures of 5-10mmHg.Aorta: The ascending aorta is dilated measuring up | | to 3.9cm.Mass: No mass visualizedThrombus: No clot visualizedSeptum: No ASD | | observed.Septum: No VSD observed. MEASUREMENTS Ao asc: 3.94 cmIVC: 1.36 | | cmEDV(Teich): 112.85 mlIVSd: 1.05 cmLVIDd: 4.90 cmLVPWd: 0.76 cmLVOT Diam: | | 2.00 cm%FS: 31.45 %EF(Teich): 59.17 %ESV(Teich): 46.07 mlLVIDs: 3.35 | | cmSV(Teich): 66.78 mlLVEF MOD A2C: 47.41 %SV MOD A2C: 45.39 mlLVEF MOD A4C: | | 44.40 %SV MOD A4C: 35.23 mlEF Biplane: 45.77 %LVEDV MOD BP: 90.23 mlLVESV MOD BP: | | 48.93 mlLVEDV MOD A2C: 95.73 mlLVLd A2C: 7.76 cmLVEDV MOD A4C: 79.35 mlLVLd A4C: | | 7.17 cmLVESV MOD A2C: 50.33 mlLVLs A2C: 6.95 cmLVESV MOD A4C: 44.12 mlLVLs A4C: | | 6.40 cmLAESV(A-L): 40.14 mlLAESV Index (A-L): 23.34 ml/m2LAAs A2C: 17.23 | | [id number] A-L A2C: 50.02 mlLALs A2C: 5.04 cmLAAs A4C: 13.15 [id number] A-L A4C: | | 30.62 mlLAESV MOD A4C: 27.81 mlLALs A4C: 4.79 cmRAAs: 14.19 [id number] A-L: 36.36 | | mlRAESV MOD: 33.98 mlRALs: 4.70 cmAo Diam: 3.29 cmAo/LA: 0.84LA Diam: 3.92 | | cmLA/Ao: 1.18TAPSE: 2.11 cmAV Env.Ti: 290.65 msAV maxP.30 mmHgAV meanPG: | | 6.30 mmHgAV Vmax: 1.44 m/Yamila Vmean: 1.23 m/Yamila VTI: 35.84 cmAVA Vmax: 2.15 | | cm2AVA (VTI): 2.08 [id number] Vmax: 0.00 cm2/m2AVAI (VTI): 0.00 cm2/m2LVOT Env.Ti: | | 336.79 msLVOT maxP.83 mmHgLVOT meanP.19 mmHgLVSI Dopp: 43.55 ml/m2LVSV | | Dopp: 74.90 mlLVOT Vmax: 0.97 m/sLVOT Vmean: 0.70 m/sLVOT VTI: 23.63 cmMV A Zen: | | 0.79 m/sMV Dec [place]: 2.67 m/s2MV DecT: 238.06 msMV E Zen: 0.63 m/sMV E/A | | Ratio: 0.79E/E' Av.03E' Av.06 m/sE/E' Lat: 8.56E/E' Sept: 12.11E' | | Lat: 0.07 m/sE' Sept: 0.05 m/sPAEDP: 7.32 mmHgPRend P.32 mmHgPRend Vmax: | | 0.76 m/sPV maxP.53 mmHgPV Vmax: 1.06 m/sRAP: 5 mmHgRV S': 0.08 m/sRVSP: | | 22.04 mmHgTR maxP.04 mmHgTR Vmax: 2.06 m/s Sheet Metal Technician: PREETAuthenticated by: | | Marshall Gutierrez MD, FACC, FACP, FASNCReport Date/Time: 04-17-2017 9:33:30 IMPRESSION: 1. | | Overall left ventricular systolic function is normal with, an EF between 55 - 60 %.2. | | The diastolic filling pattern indicates impaired relaxation consistent with mild | | dysfunction (Grade I). WMA as above.3. There is mild aortic regurgitation.4. The | | ascending aorta is dilated measuring up to 3.9cm. | |IVC: 1.36 cm | |EDV(Teich): 112.85 ml | |IVSd: 1.05 cm | |LVIDd: 4.90 cm | |LVPWd: 0.76 cm | |LVOT Diam: 2.00 cm | |%FS: 31.45 % | |EF(Teich): 59.17 % | |ESV(Teich): 46.07 ml | |LVIDs: 3.35 cm | |SV(Teich): 66.78 ml | |LVEF MOD A2C: 47.41 % | |SV MOD A2C: 45.39 ml | |LVEF MOD A4C: 44.40 % | |SV MOD A4C: 35.23 ml | |EF Biplane: 45.77 % | |LVEDV MOD BP: 90.23 ml | |LVESV MOD BP: 48.93 ml | |LVEDV MOD A2C: 95.73 ml | |LVLd A2C: 7.76 cm | |LVEDV MOD A4C: 79.35 ml | |LVLd A4C: 7.17 cm | |LVESV MOD A2C: 50.33 ml | |LVLs A2C: 6.95 cm | |LVESV MOD A4C: 44.12 ml | |LVLs A4C: 6.40 cm | |LAESV(A-L): 40.14 ml | |LAESV Index (A-L): 23.34 ml/m2 | |LAAs A2C: 17.23 cm2 | |LAESV A-L A2C: 50.02 ml | |LALs A2C: 5.04 cm | |LAAs A4C: 13.15 cm2 | |LAESV A-L A4C: 30.62 ml | |LAESV MOD A4C: 27.81 ml | |LALs A4C: 4.79 cm | |RAAs: 14.19 cm2 | |RAESV A-L: 36.36 ml | |RAESV MOD: 33.98 ml | |RALs: 4.70 cm | |Ao Diam: 3.29 cm | |Ao/LA: 0.84 | |LA Diam: 3.92 cm | |LA/Ao: 1.18 | |TAPSE: 2.11 cm | |AV Env.Ti: 290.65 ms | |AV maxP.30 mmHg | |AV meanP.30 mmHg | |AV Vmax: 1.44 m/s | |AV Vmean: 1.23 m/s | |AV VTI: 35.84 cm | |AVIVA Vmax: 2.15 cm2 | |AVIVA (VTI): 2.08 cm2 | |AVAI Vmax: 0.00 cm2/m2 | |AVAI (VTI): 0.00 cm2/m2 | |LVOT Env.Ti: 336.79 ms | |LVOT maxP.83 mmHg | |LVOT meanP.19 mmHg | |LVSI Dopp: 43.55 ml/m2 | |LVSV Dopp: 74.90 ml | |LVOT Vmax: 0.97 m/s | |LVOT Vmean: 0.70 m/s | |LVOT VTI: 23.63 cm | |MV A Zen: 0.79 m/s | |MV Dec [place]: 2.67 m/s2 | |MV DecT: 238.06 ms | |MV E Zen: 0.63 m/s | |MV E/A Ratio: 0.79 | |E/E' Av.03 | |E' Av.06 m/s | |E/E' Lat: 8.56 | |E/E' Sept: 12.11 | |E' Lat: 0.07 m/s | |E' Sept: 0.05 m/s | |PAEDP: 7.32 mmHg | |PRend P.32 mmHg | |PRend Vmax: 0.76 m/s | |PV maxP.53 mmHg | |PV Vmax: 1.06 m/s | |RAP: 5 mmHg | |RV S': 0.08 m/s | |RVSP: 22.04 mmHg | |TR maxP.04 mmHg | |TR Vmax: 2.06 m/s | | | |Sheet Metal Technician: RK | |Authenticated by: Marshall Gutierrez MD, FACC, FACP, FASNC | |Report Date/Time: 04-17-2017 9:33:30 | | | |IMPRESSION: | |1. Overall left ventricular systolic function is normal with, an EF between 55 - 60 %. | |2. The diastolic filling pattern indicates impaired relaxation consistent with mild dysfunc tion (Grade I). WMA as above. | |3. There is mild aortic regurgitation. | |4. The ascending aorta is dilated measuring up to 3.9cm. | + + documented in this encounter Visit Diagnoses Not on filedocumented in this encounter"
--- OUTSIDE RECORDS SUMMARY | ~2019-06-30 | XMS | Encounter Summary ---
Demographics + + + | Address | [address] | | | [place] [address] | + + + | Home Phone | | + + + | Preferred Language | Unknown | + + + | Marital Status | | + + + | Latter-Day Affiliation | 1041 | + + + | Race | Unknown | + + + | Ethnic Group | Unknown | + + + Author + + + | Author | [facility] | | | and Luisana | + + + | Organization | [facility] | | [...] Team Providers + +------+ + | Care Top Tile Decorator Name | Role | Phone | + +------+ + | Filemon Roy MD | PCP | | + +------+ + Encounter Details +--------+ + + + + | Date | Type | Department | Care Team | Description | +--------+ + + + + | 08/03/ | Hospital | [facility] | Rich Frank | Pharyngoesophageal | | 2018 | Encounter | [facility] | MD Sylvester [address] | dysphagia; Screening | | | | INTRA [address] | [place] [address] | for colorectal | | | | [address]VD [place], [place] | [phone] | cancer; Change in | | | | [address] | | bowel movement; | | | | [phone] | | Gastroesophageal | | | | | | reflux disease, | | | | | | esophagitis presence | | | | | | not specified | +--------+ + + + + Social [...] + + documented as of this encounter Discharge Summaries Rich Frank MD - 08/03/2017 10:00 AM PDT Discharge Summaries by Rich Frank MD at 08/03/17 1000 Author: Rich Frank MD Service: Gastroenterology Author Type: Physician Filed: 08/03/17 1000 Date of Service: 08/03/17 1000 Status: Signed Instrumentation And Control Technician: Rich Frank MD (Physician) [facility] Service: Gastroenterology Brief Post-op Discharge Note DISCHARGE DIAGNOSES: Active Problems: GERD Pharyngoesophageal dysphagia Screening for colorectal cancer Resolved Problems: * No resolved hospital problems. * Procedures: Procedure(s): COLONOSCOPY W/ EGD This patient was transferred to the recovery area post-operatively and has experienced no d ifficulties at the time of my assessment. The patient is anticipated to continue to meet di scharge criteria per protocol as assessed by nursing and may be discharged at that time with designated caregiver. 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 budesonide 180 MCG/ACT inhaler Refills: 0 Commonly known as: PULMICORT clonazePAM 0.5 MG tablet QTY: 90 tablet Refills: 1 For diagnoses: History of myocardial infarction, Conversion disorder (or hysterical neuros is, conversion type), Anxiety Commonly known as: KlonoPIN Take 1 tablet by mouth daily. cyclobenzaprine 10 MG tablet Refills: 0 Commonly known as: FLEXERIL GuaiFENesin DM 400-20 MG Tabs Refills: 0 HYDROcodone-acetaminophen 5-325 MG per tablet Refills: 0 Commonly known as: NORCO * ibuprofen 600 MG tablet Refills: 0 Commonly known as: MOTRIN * ibuprofen 800 MG tablet Refills: 0 Commonly known as: MOTRIN levothyroxine 50 MCG tablet QTY: 30 tablet Refills: 2 Commonly known as: SYNTHROID Take 1 tablet by mouth every morning before breakfast. lisinopril 10 MG tablet QTY: 90 tablet Refills: 3 Commonly known as: ZESTRIL Take 1 tablet by mouth daily. metoprolol 25 MG 24 hr tablet QTY: 90 tablet Refills: 3 Commonly known as: TOPROL-XL Take 1 tablet by mouth daily. MIRAFIBER 500 MG tablet Refills: 0 Generic drug: methylcellulose (laxative) multivitamin with minerals tablet Refills: 0 nitroGLYCERIN 0.4 MG SL tablet QTY: 25 tablet Refills: 3 Commonly known as: NITROSTAT Place 1 tablet under the tongue every 5 (five) minutes as needed for Chest pain. pantoprazole 40 MG tablet QTY: 90 tablet Refills: 1 Commonly known as: PROTONIX Take one tablet by mouth every morning before breakfast. traZODone 150 MG tablet QTY: 30 tablet Refills: 3 Commonly known as: DESYREL Take 1 tablet by mouth nightly. venlafaxine 75 MG tablet QTY: 360 tablet Refills: 3 Commonly known as: EFFEXOR Take 1 tablet by mouth 4 (four) times daily. Take 3 tablets by mouth in the morning and 1 tablet by mouth in the evening * This list has 2 medication(s) that are the same as other medications prescribed for you. Read the directions carefully, and ask your doctor or other care provider to review them wit h you. You might also be taking other medications not listed above. If you have questions about an y of your other medications, talk to the person who prescribed them or your Primary Care Pro vider. Rich Frank MD 08/03/2017 10:00 AM documented in th is encounter Medications at Time of Discharge + [...] | | | | | | [address] | | | | | | [place] [address] | | | | | | [phone] | | | | | | | | +--------+---------+ + + + documented as of this encounter Procedures + +--------+ + + + | Procedure Name | Priori | Date/Time | Associated Diagnosis | Comments | | | ty | | | | + +--------+ + + + | TISSUE REQUEST FOR | Routin | 08/03/2017 | | Results for this | | PATHOLOGY (NON-ORD) | e | 12:00 AM | | procedure are in the | | | | PDT | | results section. | + +--------+ + + + documented in this encounter Results Tissue Request For Pathology (08/03/2017 12:00 AM PDT) + + | Specimen | + + | Soft tissue sample | | (specimen) | + + + + + | Narrative | Performed At | + + + | SPECIMEN(S): A GASTRIC- BIOPSY SPECIMEN(S): B DISTAL ESOPHAGEAL | EXTERNAL LAB | | BIOPSY SPECIMEN(S): C MID ESOPHAGEAL BIOPSY SPECIMEN(S): D CECAL | | | POLYP SPECIMEN(S): E TRANSVERSE COLON POLYP SPECIMEN(S): F RECTAL | | | POLYPS SPECIMEN SOURCE: A. GASTRIC- BIOPSY B. DISTAL | | | ESOPHAGEAL BIOPSY C. MID ESOPHAGEAL BIOPSY D. CECAL POLYP E. | | | TRANSVERSE COLON POLYP F. RECTAL POLYPS CLINICAL HISTORY: | | | 08/03/2017 at 0922 H. Dysphagia, small colon polyps. MICROSCOPIC | | | DESCRIPTION: A-F. Histologic sections of all submitted blocks are | | | examined by light microscopy. These findings, together with the gross | | | examination, support the pathologic diagnosis. FINAL PATHOLOGIC | | | DIAGNOSIS: . Stomach, biopsies: - Mild chemical gastropathy. | | | COMMENT: These sections reveal gastric tissue demonstrating features | | | of a mild chemical gastropathy. There is no significant acute or | | | chronic inflammation. There is no evidence of Helicobacter pylori, | | | neoplasia, abnormal infiltrates or intestinal metaplasia. B. | | | Distal esophagus, biopsies: - Squamous mucosa without | | | eosinophils or other abnormality C. Mid esophagus, biopsies: | | | - Mildly reactive squamous mucosa without eosinophils or other | | | abnormality D. Colon, cecum: - Tubular adenoma - | | | No evidence of high grade dysplasia or malignancy E. Colon, | | | transverse: - Hyperplastic polyp. - Negative for | | | adenoma and malignancy. F. Rectum: - Hyperplastic | | | polyp. - Negative for adenoma and malignancy. GROSS | | | DESCRIPTION: Six specimens are received in six containers, labeled | | | with the patient's name: A. Received in formalin designated | | | "gastric", consists of 3 yellow-turk soft tissue fragments that range | | | in size from 0.3-0.6 cm in greatest dimension. The specimen is | | | entirely submitted in cassette A1. B. Received in formalin | | | designated "distal esophagus ", consists of 3 white-turk soft tissue | | | fragments that range in size from 0.3-0.5 cm in greatest dimension. | | | The specimen is entirely submitted in cassette B1. C. Received in | | | formalin designated "mid esophagus", consists of 2 white-turk soft | | | tissue fragments that measure 0.4 and 0.6 cm in greatest dimension. | | | The specimen is entirely submitted in cassette C1. D. Received in | | | formalin designated "cecum polyp ", consists of one pink-turk soft | | | tissue fragment that is 1.6 cm in greatest dimension. The specimen is | | | entirely submitted in cassette D1. E. Received in formalin | | | designated "transverse colon polyp ", consists of 1 yellow-turk soft | | | tissue fragment that is 1.0 cm in greatest dimension. The specimen is | | | entirely submitted in cassette E1. F. Received in formalin | | | designated "rectal polyp ", consists of one pink-red soft tissue | | | fragment that is 0.4 cm The gross description section of this | | | report has been prepared using a voice recognition system. The report | | | was reviewed for accuracy, however, sound-alike word errors, addition | | | and/or deletions may occur. If there is any question about this | | | report please contact the pathology department. PERFORMING | | | LABORATORY: Professional interpretation and technical preparation was | | | performed by [facility], [facility], [address] | | [place] [address] (Gun Stock Maker: Ja Celeste M.D.; IA#: [id number]). Diagnostician: Ja Celeste | | | Pathologist Electronically Signed 08/04/2017 | | + + + + +---------+ + + | Performing | Address | City/State/Zipcode | Phone Number | | Organization | | | | + +---------+ + + | EXTERNAL LAB | | | | + +---------+ + + documented in this encounter Visit Diagnoses + + | Diagnosis | + + | Pharyngoesophageal dysphagia Dysphagia, pharyngoesophageal phase | + + | Screening for colorectal cancer Special screening for malignant neoplasms, colon | + + | Change in bowel movement Other symptoms involving digestive system | + + | Gastroesophageal reflux disease, esophagitis presence not specified | + + documented in this encounter
--- OUTSIDE RECORDS SUMMARY | ~2019-06-30 | XMS | Encounter Summary ---
Demographics + + + | Address | [address] | | | [place] [address] | + + + | Home Phone | | + + + | Preferred Language | Unknown | + + + | Marital Status | | + + + | Druze Affiliation | 1041 | + + + | Race | Unknown | + + + | Ethnic Group | Unknown | + + + Author + + + | Author | [facility] | | | and Luisana | + + + | Organization | [facility] | | | [...] Team Providers + +------+ + | Care Rehabilitation Physician Name | Role | Phone | + +------+ + | Fabrice Hansen DO | PCP | | + +------+ + Reason for Visit + + + | Reason | Comments | + + + | Medication Question | | + + + Encounter Details +--------+ + + + + | Date | Type | Department | Care Team | Description | +--------+ + + + + | 11/18/ | Telephone | [facility] | Elizabeth Bustamante, | Medication Question | | 2018 | | MANAGER ECONOMIC | Electronic Tester | | | | | [address]NAG[address] | | | | | | [address] | | | | | | [place] | | | | | | [address] | | | | | | [phone] | | | +--------+ + + + [...] [place] | | | | | | [place] [address] | | | | | | [phone] | | | | | | | | +--------+---------+ + + + documented as of this encounter Visit Diagnoses Not on filedocumented in this encounter"
--- OUTSIDE RECORDS SUMMARY | ~2019-06-30 | XMS | Encounter Summary ---
Demographics + + + | Address | [address] | | | [place] [address] | + + + | Home Phone | | + + + | Preferred Language | Unknown | + + + | Marital Status | | + + + | Cheondoism Affiliation | 1041 | + + + | Race | Unknown | + + + | Ethnic Group | Unknown | + + + Author + + + | Author | [facility] | | | and [place]ana | + + + | Organization | [facility] | | | [...] Team Providers + +------+ + | Care Emissions Inspector Name | Role | Phone | + +------+ + | Fabrice Hansen DO | PCP | | + +------+ + Reason for Visit + + + | Reason | Comments | + + + | Post-op Problem | Patient had bile duct calculus removal 11/09/18 in [place], 2 | | | stents were placed. She reports abd pain to RUQ. Referred by | | | Meme HENNESSY at [facility]. | + + + | Abdominal Pain | | + + + Encounter Details +--------+ + + + + | Date | Type | Department | Care Team | Description | +--------+ + + + + | 11/16/ | Emergency | [facility] | Alexander Burton | Post-operative pain | | 2019 | | [facility] | MD [address] | (Primary Dx) | | | | EMERGENCY CENTER | [address] | | | | | [address] | [place] [address] | | | | | [place], [place] | [phone] | | | | | [address] | | | | | | [phone] | | | +--------+ + + + [...] + + + | Blood Pressure | 126/65 | 11/16/2018 8:54 PM | | | | | PDT | | + + + + + | Pulse | 85 | 11/16/2018 8:54 PM | | | | | PDT | | + + + + + | Temperature | 36 C (96.8 F) | 11/16/2018 2:40 PM | | | | | PDT | | + + + + + | Respiratory Rate | 16 | 11/16/2018 8:54 PM | | | | | PDT | | + + + + + | Oxygen Saturation | 98% | 11/16/2018 8:54 PM | | | | | PDT | | + + + + + | Inhaled Oxygen | - | - | | | Concentration | | | | + + + + + | Weight | 62.1 kg (136 lb 14.5 | 11/16/2018 2:40 PM | | | | oz) | PDT | | + + + + + | Height | 162.6 cm (5' 4") | 11/16/2018 2:40 PM | | | | | PDT | | + + + + + | Body Mass Index | 23.5 | 11/16/2018 2:40 PM | | | | | PDT | | + + + + + documented in this encounter Discharge Instructions AttachmentsThe following attachments cannot be sent through Care Everywhere.Pain Response, Understanding (Czech)documented in this encounter Medications at Time of [...] mg by mouth | | 0 | 08/20/20 | | | chewable tablet | daily [...] ciprofloxacin | Take 1 tablet by | 14 | 0 | 11/12/19 | | | (CIPRO) 500 mg | mouth 2 times daily | tablet | | 19 | 9 | | tabletIndications: | for 7 days. | | | | | | Biliary Tract | Indications: | | | | | | Infection | Infection of the | | | | | | | Biliary Tract | | | | | + + + +---------+ + + | | Take 1 tablet by | 12 | 0 | 11/17/19 | | | HYDROcodone-acetamin | mouth every 6 hours | tablet | | 19 | 9 | | ophen (NORCO) | as needed for Pain | | | | | | 7.5-325 mg per | for up to 12 days. | | | | | | tablet | | | | | | + + + +---------+ + + | levothyroxine | Take 50 mcg by mouth | | 0 | 09/10/19 | | | (SYNTHROID) 50 mcg | Daily. | | | 19 | 9 | | tablet | | | | | | + + + +---------+ + + | metroNIDAZOLE | Take 1 tablet by | 21 | 0 | 11/12/19 | | | (FLAGYL) 250 mg | mouth 3 times daily | tablet | | 19 | 9 | | tabletIndications: | for 7 days. | | | | | | Bacteremia | Indications: | | | | | | | Bacteria in the | | | | | | | Blood | | | | | + + + +---------+ + + | ondansetron | Take 1 tablet by | 12 | 0 | 11/17/19 | | | (ZOFRAN) 8 MG tablet | mouth every 8 hours | tablet | | 19 | 9 | | | as needed for | | | | | | | Nausea. | | | | | + + + +---------+ + + | pantoprazole | Take 1 tablet by | 30 | 1 | 09/28/19 | | | (PROTONIX) 40 mg | mouth Daily. | tablet | | 19 | 9 | | tablet | | | | | | + + + +---------+ + + | probiotic capsule | Take 1 capsule by | 24 | 0 | 11/12/19 | | | | mouth 2 times daily | capsule | | 19 | 9 | | | (with breakfast & | | | | | | | dinner) for 12 days. | | | | | + [...] [place] | | | | | | [place] [address] | | | | | | [phone] | | | | | | | | +--------+---------+ + + + + +------+--------+ + + | Name | Type | Priori | Associated Diagnoses | Date/Time | | | | ty | | | + +------+--------+ + + | ED INFORMATION | NATASHA | Routin | | 11/16/2018 2:20 PM | | EXCHANGE | | e | | PDT | + +------+--------+ + + documented as of this encounter Procedures + +--------+ + + + | Procedure Name | Priori | Date/Time | Associated Diagnosis | Comments | | | ty | | | | + +--------+ + + + | CT ABDOMEN PELVIS W | CARYN | 11/16/2018 | | Results for this | | CONTRAST | | 7:17 PM | | procedure are in the | | | | PDT | | results section. | + +--------+ + + + | CBC WITH | STAT | 11/16/2018 | | Results for this | | DIFFERENTIAL | | 6:09 PM | | procedure are in the | | | | PDT | | results section. | + +--------+ + + + | LIPASE | STAT | 11/16/2018 | | Results for this | | | | 6:09 PM | | procedure are in the | | | | PDT | | results section. | + +--------+ + + + | LACTIC ACID | Routin | 11/16/2018 | | Results for this | | | e | 6:09 PM | | procedure are in the | | | | PDT | | results section. | + +--------+ + + + | COMPREHENSIVE | STAT | 11/16/2018 | | Results for this | | METABOLIC PANEL | | 6:09 PM | | procedure are in the | | | | PDT | | results section. | + +--------+ + + + | URINALYSIS WITH | STAT | 11/16/2018 | | Results for this | | MICROSCOPIC | | 2:45 PM | | procedure are in the | | | | PDT | | results section. | + +--------+ + + + documented in this encounter Results CT Abdomen Pelvis w Contrast (11/16/2018 7:17 PM PDT) + + | Specimen | + + | | + + + + + | Impressions | Performed At | + + + | IMPRESSION: 1. Moderate intrahepatic biliary ductal dilation and | [facility] | | extensive pneumobilia, likely postprocedural. 2. Sigmoid | | | diverticulosis without evidence of diverticulitis. Signed | | | by: Shanell Zuniga, Freddie Sign Date/Time: 11/16/2018 8:03 PM | | + + + + + + | Narrative | Performed At | + + + | CT ABDOMEN AND PELVIS WITH CONTRAST CLINICAL INFORMATION: | [facility] | | Abdominal pain, post operative problem COMPARISON: [place] [facility] | | | BILIARY ONLY (11/09/2018); MRI ABDOMEN W WO CONTRAST MRCP (11/02/2018); | | | END COLONSCOPY IMAGING (08/03/2017); CTA CHEST W WO CONTRAST | | | (08/06/2017); PROCEDURE: Axial images through the abdomen and | | | pelvis after the administration of 100 cc Omnipaque 350 intravenous | | | contrast. Multiplanar reconstructions. At least one of the | | | following CT dose optimization techniques were used: Automated | | | exposure control; Adjustment of mA and/or kV according to patient | | | size; Use of iterative reconstruction technique. FINDINGS: LUNG | | | BASES: No significant pulmonary abnormality. No pleural effusion or | | | pneumothorax. ABDOMEN Liver and Biliary: Gallbladder is normal in | | | size and morphology. Extensive pneumobilia is present. Biliary | | | stent is present. Gallbladder is surgically absent. Moderate | | | intrahepatic biliary ductal dilation. Pancreas, Spleen and Adrenals: | | | No pancreatitis or pancreatic mass. Stable appearance of the cyst in | | | the pancreatic head, as described on prior MRI. No splenomegaly, | | | splenic mass or splenic hemorrhage. No significant adrenal | | | abnormality. Kidneys: No hydronephrosis, calculus or solid renal | | | mass. ABDOMEN AND PELVIS Bowel: No small bowel or colonic | | | dilation or adjacent inflammation. No appendiceal dilation or | | | inflammation. Scattered diverticula in the sigmoid colon without | | | evidence of diverticulitis. Vessels: No significant abnormality in | | | the aorta or its proximal branches. No significant abnormality in the | | | portal veins, mesenteric veins or systemic veins. Lymph Nodes: No | | | adenopathy. Peritoneum and Retroperitoneum: No ascites or free air. | | | No significant retroperitoneal abnormality. PELVIS | | | Genitourinary: Distal ureters and bladder appear normal. No pelvic | | | masses. BODY WALL Soft Tissues: No bowel or inflamed fat | | | containing hernia, mass or hemorrhage. Bones: No acute fracture or | | | vertebral end plate destruction. No lytic or blastic lesion. | | + + + + + | Procedure Note | + + | Dex, Rad Results In - 11/16/2018 8:06 PM PDT | | CT ABDOMEN AND PELVIS WITH CONTRAST | | | | CLINICAL INFORMATION: | | Abdominal pain, post operative problem | | | | COMPARISON: | | [place] [facility] BILIARY ONLY (11/09/2018); MRI ABDOMEN W WO CONTRAST MRCP | | (11/02/2018); END COLONSCOPY IMAGING (08/03/2017); CTA CHEST W WO | | CONTRAST (08/06/2017); | | | | PROCEDURE: | | Axial images through the abdomen and pelvis after the administration of | | 100 cc Omnipaque 350 intravenous contrast. Multiplanar reconstructions. | | | | At least one of the following CT dose optimization techniques were | | used: Automated exposure control; Adjustment of mA and/or kV according | | to patient size; Use of iterative reconstruction technique. | | | | FINDINGS: | | LUNG BASES: No significant pulmonary abnormality. No pleural effusion | | or pneumothorax. | | | | ABDOMEN | | Liver and Biliary: Gallbladder is normal in size and morphology. | | Extensive pneumobilia is present. Biliary stent is present. | | Gallbladder is surgically absent. Moderate intrahepatic biliary ductal | | dilation. | | Pancreas, Spleen and Adrenals: No pancreatitis or pancreatic mass. | | Stable appearance of the cyst in the pancreatic head, as described on | | prior MRI. No splenomegaly, splenic mass or splenic hemorrhage. No | | significant adrenal abnormality. | | Kidneys: No hydronephrosis, calculus or solid renal mass. | | | | ABDOMEN AND PELVIS | | Bowel: No small bowel or colonic dilation or adjacent inflammation. No | | appendiceal dilation or inflammation. Scattered diverticula in the | | sigmoid colon without evidence of diverticulitis. | | Vessels: No significant abnormality in the aorta or its proximal | | branches. No significant abnormality in the portal veins, mesenteric | | veins or systemic veins. | | Lymph Nodes: No adenopathy. | | Peritoneum and Retroperitoneum: No ascites or free air. No significant | | retroperitoneal abnormality. | | | | PELVIS | | Genitourinary: Distal ureters and bladder appear normal. No pelvic | | masses. | | | | BODY WALL | | Soft Tissues: No bowel or inflamed fat containing hernia, mass or | | hemorrhage. | | Bones: No acute fracture or vertebral end plate destruction. No lytic | | or blastic lesion. | | | | IMPRESSION: | | IMPRESSION: | | 1. Moderate intrahepatic biliary ductal dilation and extensive | | pneumobilia, likely postprocedural. | | 2. Sigmoid diverticulosis without evidence of diverticulitis. | | | | | | | | Signed by: Shanell Zuniga John | | Sign Date/Time: 11/16/2018 8:03 PM | + + + +---------+ + + | Performing | Address | City/State/[facility] | Phone Number | | Organization | | | | + +---------+ + + | [facility] | | | | + +---------+ + + Lactic Acid (11/16/2018 6:09 PM PDT) + + + + + + | Component | Value | Ref Range | Performed | Pathologist | | | | | At | Signature | + + + + + + | Lactate, | 0.6Comment: Testing | 0.4 - 2.0 | [facility] | | | Serum | performed at [facility];[address] | mmol/L | LABORATORY | | | | [address];[place] | | | | | | [address] | | | | + + + + + + + + | Specimen | + + | Blood | + + + + + + + | Performing | Address | City/State/Zipcode | Phone Number | | Organization | | | | + + + + + | [facility] | [address] | [place] [address] | [phone] | + + + + + Lipase (11/16/2018 6:09 PM PDT) + + + + + + | Component | Value | Ref Range | Performed | Pathologist | | | | | At | Signature | + + + + + + | Lipase | 40Comment: Testing | 12 - 53 U/L | [facility] | | | | performed at [facility];[address] | | LABORATORY | | | | [address];[place], [place] | | | | | | [address] | | | | + + + + + + + + | Specimen | + + | Blood | + + + + + + + | Performing | Address | City/State/Zipcode | Phone Number | | Organization | | | | + + + + + | [facility] | [address] | [place] [address] | [phone] | + + + + + Comprehensive Metabolic Panel (11/16/2018 6:09 PM PDT) + + + + + + | Component | Value | Ref Range | Performed | Pathologist | | | | | At | Signature | + + + + + + | Na | 138 | 135 - 145 | [facility] | | | | | mmol/L | LABORATORY | | + + + + + + | K | 3.9 | 3.5 - 4.9 | [facility] | | | | | mmol/L | LABORATORY | | + + + + + + | Cl | 104 | 99 - 109 mmol/L | [facility] | | | | | | LABORATORY | | + + + + + + | CO2 | 26 | 23 - 32 mmol/L | [facility] | | | | | | LABORATORY | | + + + + + + | Anion Gap | 12 | 5 - 20 mmol/L | [facility] | | | | | | LABORATORY | | + + + + + + | Glucose | 87 | 65 - 99 mg/dL | [facility] | | | | | | LABORATORY | | + + + + + + | BUN | 12 | 8 - 25 mg/dL | [facility] | | | | | | LABORATORY | | + + + + + + | Creatinine | 0.75 | 0.50 - 1.00 | [facility] | | | | | mg/dL | LABORATORY | | + + + + + + | BUN/Creatin | 16 | | [facility] | | | ine Ratio | | | LABORATORY | | + + + + + + | Calcium | 9.8 | 8.5 - 10.5 | [facility] | | | | | mg/dL | LABORATORY | | + + + + + + | Protein, | 6.9 | 6.3 - 8.2 g/dL | [facility] | | | Total | | | LABORATORY | | + + + + + + | Albumin | 4.7 | 3.3 - 4.8 g/dL | [facility] | | | | | | LABORATORY | | + + + + + + | Globulin | 2.2 | 1.3 - 4.9 g/dL | [facility] | | | | | | LABORATORY | | + + + + + + | A/G Ratio | 2.1 | 1.0 - 2.4 | [facility] | | | | | | LABORATORY | | + + + + + + | BILIRUBIN, | 0.4 | 0.1 - 1.5 mg/dL | [facility] | | | TOTAL | | | LABORATORY | | + + + + + + | ALK PHOS | 126 (H) | 35 - 115 U/L | [facility] | | | | | | LABORATORY | | + + + + + + | AST | 14 | 10 - 45 U/L | [facility] | | | | | | LABORATORY | | + + + + + + | ALT | 32 | 10 - 65 U/L | [facility] | | | | | | LABORATORY | | + + + + + + | Estimated | >60Comment: GFR <60: | >60 | [facility] | | | GFR | CHRONIC KIDNEY DISEASE, | mL/min/1.73m2 | LABORATORY | | | | IF FOUND OVER A 3 MONTH | | | | | | PERIOD.GFR <15: KIDNEY | | | | | | FAILURE.FOR | | | | | | AMERICANS, MULTIPLY THE | | | | | | CALCULATED GFR BY | | | | | | 1.210.This eGFR is | | | | | | calculated using the | | | | | | [facility] traceable | | | | | | equation.Testing | | | | | | performed at [facility] | | | | | | [facility];[place], [place] | | | | | | [address] | | | | + + + + + + + + | Specimen | + + | Blood | + + + + + + + | Performing | Address | City/State/Zipcode | Phone Number | | Organization | | | | + + + + + | [facility] | [address] | [place] [address] | [phone] | + + + + + CBC with Differential (11/16/2018 6:09 PM PDT) + + + + + + | Component | Value | Ref Range | Performed | Pathologist | | | | | At | Signature | + + + + + + | WBC | 9.18 | 3.80 - 11.00 | [facility] | | | | | K/uL | LABORATORY | | + + + + + + | RBC | 4.20 | 3.70 - 5.10 | [facility] | | | | | M/uL | LABORATORY | | + + + + + + | Hemoglobin | 14.0 | 11.3 - 15.5 | [facility] | | | | | g/dL | LABORATORY | | + + + + + + | Hematocrit | 41.4 | 34.0 - 46.0 % | [facility] | | | | | | LABORATORY | | + + + + + + | MCV | 98.5 | 80.0 - 100.0 fl | [facility] | | | | | | LABORATORY | | + + + + + + | MCH | 33.4 | 27.0 - 34.0 pg | [facility] | | | | | | LABORATORY | | + + + + + + | MCHC | 33.9 | 32.0 - 35.5 | [facility] | | | | | g/dL | LABORATORY | | + + + + + + | RDW-SD | 48.1 | 37 - 53 fl | [facility] | | | | | | LABORATORY | | + + + + + + | Platelet | 265 | 150 - 400 K/uL | [facility] | | | Count | | | LABORATORY | | + + + + + + | MPV | 9.2 | fl | [facility] | | | | | | LABORATORY | | + + + + + + | Diff Type | AUTOMATED | | [facility] | | | | | | LABORATORY | | + + + + + + | % | 57.06 | % | [facility] | | | Neutrophils | | | LABORATORY | | + + + + + + | % | 31.94 | % | [facility] | | | Lymphocytes | | | LABORATORY | | + + + + + + | Monocyte % | 7.61 | % | [facility] | | | | | | LABORATORY | | + + + + + + | Eosinophils | 2.04 | % | [facility] | | | % | | | LABORATORY | | + + + + + + | Basophils % | 1.35 | % | [facility] | | | | | | LABORATORY | | + + + + + + | Neutrophils | 5.24 | 1.90 - 7.40 | [facility] | | | , Absolute | | K/uL | LABORATORY | | + + + + + + | Absolute | 2.93 | 1.00 - 3.90 | [facility] | | | Lymphocytes | | K/uL | LABORATORY | | + + + + + + | Absolute | 0.70 | 0.00 - 0.80 | [facility] | | | Monocytes | | K/uL | LABORATORY | | + + + + + + | Eosinophils | 0.19 | 0.00 - 0.50 | [facility] | | | , Absolute | | K/uL | LABORATORY | | + + + + + + | Basophils, | 0.12 (H)Comment: Testing | 0.00 - 0.10 | [facility] | | | Absolute | performed at [facility];[address] | K/uL | LABORATORY | | | | [address];[place] | | | | | | [address] | | | | + + + + + + + + | Specimen | + + | Blood | + + + + + + + | Performing | Address | City/State/Zipcode | Phone Number | | Organization | | | | + + + + + | [facility] | [address] | [place] [address] | [phone] | + + + + + Urinalysis With Microscopic (11/16/2018 2:45 PM PDT) + + + + + + | Component | Value | Ref Range | Performed | Pathologist | | | | | At | Signature | + + + + + + | Color, UA | STRAW | | [facility] | | | | | | LABORATORY | | + + + + + + | Clarity, UA | CLEAR | | [facility] | | | | | | LABORATORY | | + + + + + + | Specific | 1.008 | 1.002 - 1.030 | [facility] | | | [place], | | | LABORATORY | | | Urine | | | | | + + + + + + | Leukocyte | NEGATIVE | NEG | [facility] | | | esterase, | | | LABORATORY | | | UA | | | | | + + + + + + | Nitrite, UA | NEGATIVE | NEG | [facility] | | | | | | LABORATORY | | + + + + + + | Urobilinoge | NORMAL | <1.1 mg/dL | [facility] | | | n, Ur | | | LABORATORY | | + + + + + + | Protein, | NEGATIVE | NEG mg/dL | [facility] | | | Urine | | | LABORATORY | | | (mg/dL) | | | | | + + + + + + | pH, Urine | 5.0 | 5.0 - 8.0 | [facility] | | | | | | LABORATORY | | + + + + + + | Blood, UA | MODERATE (A) | NEG | [facility] | | | | | | LABORATORY | | + + + + + + | Ketones, UA | NEGATIVE | NEG mg/dL | [facility] | | | | | | LABORATORY | | + + + + + + | Bilirubin, | NEGATIVE | NEG | [facility] | | | UA | | | LABORATORY | | + + + + + + | Glucose, Ur | NEGATIVE | NEG mg/dL | [facility] | | | | | | LABORATORY | | + + + + + + | WBC UA | 0-2 | 0 - 5 /hpf | [facility] | | | | | | LABORATORY | | + + + + + + | Red Blood | 3-5 | 0 - 5 /hpf | [facility] | | | Cells, | | | LABORATORY | | | Urine | | | | | + + + + + + | Squamous | 6-10 | /lpf | [facility] | | | Epithelial | | | LABORATORY | | | Cells, | | | | | | Urine | | | | | + + + + + + | Bacteria, | NONE SEEN | NONE | [facility] | | | Urine | | | LABORATORY | | + + + + + + | Mucus, | 1+Comment: Testing | | [facility] | | | Urine | performed at [facility];[address] | | LABORATORY | | | | [address] [facility];[place], [place] | | | | | | [address] | | | | + + + + + + + + | Specimen | + + | Urine - Urine | | specimen obtained by | | clean catch | | procedure (specimen) | + + + + + + + | Performing | Address | City/State/Zipcode | Phone Number | | Organization | | | | + + + + + | [facility] | [address] | [place] [address] | [phone] | + + + + + documented in this encounter Visit Diagnoses + + | Diagnosis | + + | Post-operative pain - Primary Other acute postoperative pain | + + documented in this encounter Administered Medications + +---------+ +--------+-------+------+ | Medication Order | MAR | Action | Dose | Rate | Site | | | Action | Date | | | | + +---------+ +--------+-------+------+ | ciprofloxacin in dextrose | New Bag | 11/17/19 | 400 mg | 200 | | | (CIPRO) IVPB 400 mg 400 mg, | | 19 5:59 | | mL/hr | | | Intravenous, Administer over 1 | | PM PDT | | | | | Hours, ONCE, Thu11/16/18 at 1745, | | | | | | | For 1 dose, Indications: Acute | | | | | | | Abdominal Condition | | | | | | + +---------+ +--------+-------+------+ +---+---+ | | | +---+---+ + +-------+ +-------+---+---+ | diphenhydrAMINE (BENADRYL) | Given | 11/17/19 | 25 mg | | | | injection 25 mg 25 mg, | | 19 6:43 | | | | | Intravenous, ONCE, Thu11/16/18 at | | PM PDT | | | | | 1840, For 1 dose | | | | | | + +-------+ +-------+---+---+ +---+---+ | | | +---+---+ + +-------+ +-------+---+---+ | famotidine (PEPCID) injection | Given | 11/17/19 | 20 mg | | | | 20 mg 20 mg, Intravenous, ONCE, | | 19 6:43 | | | | | 11/16/18 at 1840, For 1 dose, | | PM PDT | | | | | Dilute 2 mL of famotidine with 8 | | | | | | | mL of normal saline to a final | | | | | | | concentration of 2 mg/mL. | | | | | | | Administer ordered dose over a | | | | | | | period of at least 2 minutes., | | | | | | + +-------+ +-------+---+---+ +---+---+ | | | +---+---+ + +-------+ +--------+---+---+ | HYDROmorphone (DILAUDID) | Given | 11/17/19 | 0.5 mg | | | | injection 0.5 mg 0.5 mg, | | 19 8:39 | | | | | Intravenous, EVERY 20 MINUTES | | PM PDT | | | | | PRN, Pain, Starting 11/16/18 | | | | | | | at 2002, For 2 doses, Valid only | | | | | | | in ED, | | | | | | + +-------+ +--------+---+---+ +---+---+ | | | +---+---+ + +-------+ +---------+---+---+ | iohexol (OMNIPAQUE 350) 350 | Given | 11/17/19 | 100 mLs | | | | mg/mL injection 100 mL 100 mL, | | 19 7:18 | | | | | Intravenous, ONCE PRN, Other, | | PM PDT | | | | | Starting 11/16/18 at 1918, For | | | | | | | 1 dose, Cat Scanner | | | | | | + +-------+ +---------+---+---+ +---+---+ | | | +---+---+ + +---------+ +--------+-------+---+ | metroNIDAZOLE in saline | New Bag | 11/17/19 | 500 mg | 100 | | | (FLAGYL) IVPB 500 mg 500 mg, | | 19 7:26 | | mL/hr | | | Intravenous, Administer over 1 | | PM PDT | | | | | Hours, ONCE, 11/16/18 at 1745, | | | | | | | For 1 dose, Do not refrigerate., | | | | | | | Indications: Biliary Tract | | | | | | | Infection | | | | | | + +---------+ +--------+-------+---+ +---+---+ | | | +---+---+ + +-------+ +------+---+---+ | ondansetron (ZOFRAN) injection | Given | 11/17/19 | 4 mg | | | | 4 mg 4 mg, Intravenous, EVERY 1 | | 19 8:39 | | | | | HOUR PRN, Nausea, Starting Tue | | PM PDT | | | | | 11/16/18 at 1736, For 2 doses | | | | | | + +-------+ +------+---+---+ +---+---+ | | | +---+---+ + +---------+ +--------+-------+---+ | sodium chloride 0.9% (NS) bolus | New Bag | 11/17/19 | 1,000 | 2000 | | | 1,000 mL 1,000 mL, Intravenous, | | 19 6:05 | mLs | mL/hr | | | Administer over 30 Minutes, | | PM PDT | | | | | ONCE, Otis 11/16/18 at 1740, For 1 | | | | | | | dose | | | | | | + +---------+ +--------+-------+---+ +---+---+ | | | +---+---+ + +---------+ +--------+-------+---+ | sodium chloride 0.9% (NS) bolus | New Bag | 11/17/19 | 1,000 | 2000 | | | 1,000 mL 1,000 mL, Intravenous, | | 19 8:38 | mLs | mL/hr | | | Administer over 30 Minutes, | | PM PDT | | | | | ONCE, Otis 11/16/18 at 2005, For 1 | | | | | | | dose | | | | | | + +---------+ +--------+-------+---+ +---+---+ | | | +---+---+ documented in this encounter
--- OUTSIDE RECORDS SUMMARY | ~2019-06-30 | XMS | Encounter Summary ---
Demographics + + + | Address | [address] | | | [place] [address] | + + + | Home Phone | | + + + | Preferred Language | Unknown | + + + | Marital Status | | + + + | Hindu Affiliation | 1041 | + + + | Race | Unknown | + + + | Ethnic Group | Unknown | + + + Author + + + | Author | [facility] | | | and Luisana | + + + | Organization | [facility] | | [...] Team Providers + +------+ + | Care Breaker Boss Name | Role | Phone | + +------+ + PCP | Unavailable | + +------+ + Encounter Details +--------+ + + + + | Date | Type | Department | Care Team | Description | +--------+ + + + + | 09/09/ | Hospital | [facility] | Yung Gomez | Carpal tunnel | | 2013 | Encounter | [facility] | Patrica Sergey Matthew | syndrome | | | | OPERATING ROOM [address] [place], [place] | | | | | [address] | [address] | | | | | [place], [place] | | | | | | [address] | | | | | | [phone] | | | +--------+ + + + [...] documented as of this encounter Progress Notes Kajal Houser, Provider Unknown - 10/18/2012 1:17 PM PDTFormatting of this note m ight be different from the original. Progress Notes by Ember Saldana RPH at 10/18/121316 Author: Ember Saldana RPH Service: (none) Author Type: Pharmacist Filed: 10/18/121316 Date of Service: 10/18/121316 Status: Signed Drafting Technician: Ember Saldana RPH (Pharmacist) Renal Dosing Monitoring: Sharon Way 67 y.o. female Pharmacy dosing for renal function per Dr. Gomez Plan per protocol: Medication / Dose: No serum creatinine on file. Pharmacy will assess renal function and ad just dosages if indicated when updated labs are posted. Pharmacy will continue monitoring patient for appropriate dosing per renal function. 10/18/2012 1:16 PM Pharmacist: EMBER SALDANA docume nted in this encounter Plan of Treatment +--------+---------+ + + + | Date | Type | Specialty | Care Team | Description | +--------+---------+ + + + | 07/18/ | Office | Cardiology | Erin Limon | | | 2019 | Visit | | [address] | | | | | | [address] | | | | | | [place] [address] | | | | | | [phone] | | | | | | | | +--------+---------+ + + + documented as of this encounter Visit Diagnoses + + | Diagnosis | + + | Carpal tunnel syndrome | + + documented in this encounter"
--- OUTSIDE RECORDS SUMMARY | ~2019-06-30 | XMS | Encounter Summary ---
Demographics + + + | Address | [address] | | | [place] [address] | + + + | Home Phone | | + + + | Preferred Language | Unknown | + + + | Marital Status | | + + + | Voodoo Affiliation | 1041 | + + + | Race | Unknown | + + + | Ethnic Group | Unknown | + + + Author + + + | Author | [facility] | | | and [place]ana | + + + | Organization | [facility] | | [...] Team Providers + +------+ + | Care Disability Manager Name | Role | Phone | + +------+ + | Fabrice Hansen DO | PCP | | + +------+ + Reason for Visit + + + | Reason | Comments | + + + | Follow-up | | + + + Evaluate & Treat (Routine) + + + + + + + | Status | Reason | Specialty | Diagnoses / | Referred By | Referred To | | | | | Procedures | Contact | Contact | + + + + + + + | Authorized | Specialty | Gastroenterol | Diagnoses | Batayola, | Rey, | | | Services | ogy | Epigastric | Fabrice | Meme Naik NP | | | Required | | pain | DO Lucius | [address] | | | | | Dysphagia, | [address] | | | | | unspecified | [address] | [place], [place] | | | | | type | [address] | [address] Phone: | | | | | | [place], [place] | [phone] | | | | | | [address] | Fax: | | | | | | Phone: | [phone] | | | | | | [phone] | | | | | | | Fax: | | | | | | | [phone] | | + + + + + + + Encounter Details +--------+---------+ + + + | Date | Type | Department | Care Team | Description | +--------+---------+ + + + | 11/24/ | Office | [facility] | ReyCinthiaMeme | Calculus of bile | | 2019 | Visit | GASTROENTEROLOGY | A, MATERIAL CONTROL ASSOCIATE [address] | duct with | | | | [address] | [place] [address] | cholangitis and | | | | [place], [place] | [phone] | obstruction, | | | | [address] | | unspecified | | | | [phone] | | cholangitis acuity | | | | | | (Primary Dx); Other | | | | | | constipation | +--------+---------+ + + + Social History + +-------+ [...] + + + | Blood Pressure | 119/85 | 11/24/2018 10:46 AM | | | | | PDT | | + + + + + | Pulse | 73 | 11/24/2018 10:46 AM | | | | | PDT | | + + + + + | Temperature | - | - | | + + + + + | Respiratory Rate | - | - | | + + + + + | Oxygen Saturation | - | - | | + + + + + | Inhaled Oxygen | - | - | | | Concentration | | | | + + + + + | Weight | 62 kg (136 lb 9.6 | 11/24/2018 10:46 AM | | | | oz) | PDT | | + + + + + | Height | 162.6 cm (5' 4") | 11/24/2018 10:46 AM | | | | | PDT | | + + + + + | Body Mass Index | 23.45 | 11/24/2018 10:46 AM | | | | | PDT | | + + + + + documented in this encounter Progress Notes Meme Le NP - 11/24/2018 10:50 AM PDT Chief Complaint Patient presents with Follow-up HPI Patient ID: Sharon Way is a 73 y.o. female who presents in follow up regarding abdo jasbir pain secondary to choledocholithiasis. She did undergo ERCP with [facility] on 2018. Unfortunately, she did develop cholangitis for which she was treated with anti biotics. She does have plan to repeat ERCP on December 25, [address] Thompson. Abdominal pain has significantly improved. Subsequently did have constipation for 7 days postprocedu re which eventually did clear. Currently is treating daily with a laxative. Liver enzymes have significantly improved. Review of Systems Constitutional: Negative for activity change, appetite change, chills, diaphoresis, fatigue , fever and unexpected weight change. HENT: Negative for ear pain, mouth sores, nosebleeds, sore throat, trouble swallowing and v oice change. Eyes: Negative for pain, redness and visual disturbance. Respiratory: Negative for cough, choking, chest tightness, shortness of breath and wheezing . Cardiovascular: Negative for chest pain, palpitations and leg swelling. Gastrointestinal: Positive for abdominal distention, abdominal pain and constipation. Negat mikey for anal bleeding, blood in stool, diarrhea, nausea, rectal pain and vomiting. Endocrine: Negative for cold intolerance, heat intolerance and polydipsia. Genitourinary: Negative for difficulty urinating, dysuria, frequency, hematuria, urgency an d vaginal bleeding. Musculoskeletal: Negative for arthralgias, back pain, gait problem, joint swelling, myalgia s, neck pain and neck stiffness. Skin: Negative for color change, rash and wound. Allergic/Immunologic: Negative for environmental allergies, food allergies and immunocompro mised state. Neurological: Negative for dizziness, tremors, seizures, syncope, weakness, light-headednes s and headaches. Hematological: Negative for adenopathy. Does not bruise/bleed easily. Psychiatric/Behavioral: Negative for agitation, behavioral problems, confusion, dysphoric m ood, hallucinations and suicidal ideas. The patient is not nervous/anxious. Allergies Allergen Reactions Morphine Anxiety and Hallucination Agitation Penicillins Hives Hives Sulfa Antibiotics Hives Hives Wellbutrin [Bupropion] Hives Hives Chantix [Varenicline] Anxiety Agitation, Extreme agitation and mood changes and nausea Outpatient Encounter Medications as of 11/24/2018 Medication Sig Dispense Refill acetaminophen (TYLENOL) 500 mg tablet Take 500 mg by mouth every 6 hours as needed for Pain. albuterol 90 mcg/puff inhaler Inhale 2 puffs into the lungs every 6 hours as needed for Wheezing. aspirin 81 mg chewable tablet Take 81 mg by mouth daily with breakfast. atorvaSTATin (LIPITOR) 40 mg tablet Take 40 mg by mouth Daily. fluticasone (FLONASE) 50 mcg/nasal spray 1 spray by Nasal route Twice daily as needed for Allergies. [] HYDROcodone-acetaminophen (NORCO) 7.5-325 mg per tablet Take 1 tablet by mout h every 6 hours as needed for Pain for up to 12 days. 12 tablet 0 levothyroxine (SYNTHROID) 50 mcg tablet Take 50 mcg by mouth Daily. lisinopril (PRINIVIL, ZESTRIL) 10 mg tablet Take 10 mg by mouth Daily. nitroglycerin (NITROSTAT) 0.[address] 0.4 mg under the tongue every 5 minute s as needed for Chest pain. ondansetron (ZOFRAN) 8 MG tablet Take 1 tablet by mouth every 8 hours as needed for Arsh sea. 12 tablet 0 [DISCONTINUED] pantoprazole (PROTONIX) 40 mg tablet Take 1 tablet by mouth Daily. 30 ta blet 1 [] probiotic capsule Take 1 capsule by mouth 2 times daily (with breakfast & din ner) for 12 days. 24 capsule 0 traZODone (DESYREL) 150 MG tablet Take 75-150 mg by mouth Daily. triamcinolone (KENALOG) 0.025% ointment Apply 0.025 Units topically as needed for Rash. venlafaxine (EFFEXOR) 75 MG tablet Take 75 mg by mouth Daily. No facility-administered encounter medications on file as of 11/24/2018. Past Medical History: Diagnosis Date Anesthesia complication TAKES LONG TIME TO WAKE Arthritis Asthma Calculus of bile duct with cholangitis and obstruction Cholelithiasis COPD (chronic obstructive pulmonary disease) (HCC) 10/18/2012 Coronary artery disease 2002 CABG Depression Disorder of thyroid GERD (gastroesophageal reflux disease) Heart attack (HCC) Heart disease High cholesterol HTN (hypertension) 10/18/2012 Irritable bowel syndrome Joint pain Liver abscess 03/05/2018 Neuromuscular disorder (HCC) PONV (postoperative nausea and vomiting) Visual disturbance glasses Past Surgical History: Procedure Laterality Date APPENDECTOMY CARDIAC CATHERIZATION CARDIOVASCULAR SURGERY TRIPLE BYPASS CARPAL TUNNEL RELEASE Right 10/18/2012 Procedure: CARPAL TUNNEL RELEASE; Surgeon: Yung Gomez MD; Location: [facility] MAIN OR ; Service: Neurosurgery; Laterality: Right; SECTION CHOLECYSTECTOMY COLONOSCOPY 07/2017 CORONARY ARTERY BYPASS GRAFT [facility] ERCP N/A 11/09/2018 Procedure: ERCP, SPYGLASS; Surgeon: Bacilio Thompson MD; Location: [facility] MEDICAL PROCEDURE UN IT HYSTERECTOMY LIVER SURGERY 01/2018 LIVER DRAIN FOR LIVER ABCESS OTHER SURGICAL HISTORY OTHER SURGICAL HISTORY CATARACT EXTRACTION OTHER SURGICAL HISTORY UNLISTED PROCEDURE ARTHROSCOPY - bilateral thumbs OTHER SURGICAL HISTORY 08/03/2017 COLONOSCOPY WITH EGD - Procedure: COLONOSCOPY W/ EGD; Surgeon: Rich Frank MD; L ocation: [facility] ENDOSCOPY; Service: Gastroenterology; Laterality: N/A; UPPER GASTROINTESTINAL ENDOSCOPY 07/2017 Family History Problem Relation Age of Onset Colon polyps Father Cancer Other Heart disease Other Hypertension Other Diabetes Other Colon polyps Sister Colon polyps Brother Colon cancer Brother Social History Socioeconomic History Marital status: Spouse name: Not on file Number of children: 2 Years of education: Not on file Highest education level: Not on file Social Needs Financial resource strain: Not on file Food insecurity - worry: Not on file Food insecurity - inability: Not on file Transportation needs - medical: Not on file Transportation needs - non-medical: Not on file Occupational History Not on file Tobacco Use Smoking status: Current Every Day Smoker Packs/day: 0.75 Years: 25.00 Pack years: 18.75 Smokeless tobacco: Never Used Substance and Sexual Activity Alcohol use: Yes Alcohol/week: 2.4 oz Types: 4 Glasses of wine per week Drug use: Not Currently Comment: Drug use: No Sexual activity: Not Currently Partners: Male Other Topics Concern Not on file Social History Narrative Not on file Objective: Physical Exam Constitutional: She is oriented to person, place, and time. She appears well-developed and well-nourished. No distress. HENT: Head: Normocephalic and atraumatic. Eyes: Right eye exhibits no discharge. Left eye exhibits no discharge. No scleral icterus. Neck: Normal range of motion. Musculoskeletal: Normal range of motion. Neurological: She is alert and oriented to person, place, and time. Skin: Skin is warm and dry. She is not diaphoretic. Psychiatric: She has a normal mood and affect. Her behavior is normal. Judgment and thought content normal. Vitals: 11/24/18 1046 BP: 119/85 Pulse: 73 Weight: 62 kg (136 lb 9.6 oz) Height: 1.626 m (5' 4") Body mass index is 23.45 kg/m. No components found for: HGBA1C Lab Results Component Value Date WBC 9.18 11/16/2018 HGB 14.0 11/16/2018 HCT 41.4 11/16/2018 MCV 98.5 11/16/2018 PLT 265 11/16/2018 Lab Results Component Value Date NA 138 11/16/2018 K 3.9 11/16/2018 CL 104 11/16/2018 CO2 26 11/16/2018 ANIONGAP 12 11/16/2018 GLUF 66 05/25/2018 BUN 12 11/16/2018 BCR 19 05/25/2018 GLOB 2.9 05/25/2018 BILITOT 0.8 11/11/2018 AST 14 11/16/2018 ALT 32 11/16/2018 EGFR >60 11/16/2018 Lab Results Component Value Date CHOL 182 03/05/2017 TRIG 147 03/05/2017 HDL 50 03/05/2017 No results found for: TSH Assessment and Plan: 1. Calculus of bile duct with cholangitis and obstruction, unspecified cholangitis acuity 2. Other constipation Abdominal pain has significantly improved. She will need subsequent ERCPs to remove number of stones identified. She does have scheduled ERCP with [facility] which she will keep. S he also has MRI scheduled prior to ERCP. She will follow-up in our office postprocedure and as needed. She does have our contact office numbers if needed. Recommendations: Complete MRI as ordered by [facility] Complete ERCP as scheduled with [facility] Follow-up in our office postprocedure and as needed. Thank you for allowing me to participate in the care of your patient. Please do not hesitat e to call me with any questions or concerns. Meme Le NP [facility] 11/30/2018 15:09 Dictated using [employer] translation software. Edited at time of master glazier however sound alike master glazier errors may still be prese nt. Please contact practitioner for any clarification needed. documented in thi s encounter Plan of Treatment +--------+---------+ + + + | Date | Type | Specialty | Care Team | Description | +--------+---------+ + + + | 07/18/ | Office | Cardiology | Erin Limon | | | 2020 | Visit | | [address] | | | | | | [address] | | | | | | [place] [address] | | | | | | [phone] | | | | | | | | +--------+---------+ + + + documented as of this encounter Visit Diagnoses + + | Diagnosis | + + | Calculus of bile duct with cholangitis and obstruction, unspecified cholangitis acuity | | - Primary | + + | Other constipation | + + documented in this encounter
--- OUTSIDE RECORDS SUMMARY | ~2019-06-30 | XMS | Encounter Summary ---
Demographics + + + | Address | [address] | | | [place] [address] | + + + | Home Phone | | + + + | Preferred Language | Unknown | + + + | Marital Status | | + + + | Scientologist Affiliation | 1041 | + + + | Race | Unknown | + + + | Ethnic Group | Unknown | + + + Author + + + | Author | [facility] | | | and Luisana | + + + | Organization | [facility] | | | and [...] Team Providers + +------+ + | Care Eyeglass Frames Polisher Name | Role | Phone | + +------+ + | Fabrice Hansen DO | PCP | | + +------+ + Encounter Details +--------+ + + + + | Date | Type | Department | Care Team | Description | +--------+ + + + + | 09/09/ | Orders Only | [facility] | Fabrice Hansen | | | 2019 | | [facility] | Refugio[address]remiasDO [address] | | | | | [address] | [place] | | | | | [address] | [address] [place], [place] | | | | | [place], [place] | [address] | | | | | [address] | | | | | | [phone] | | | +--------+ + + + [...] | | | | | [place] [address] | | | | | | [phone] | | | | | | | | +--------+---------+ + + + documented as of this encounter Visit Diagnoses Not on filedocumented in this encounter"
--- OUTSIDE RECORDS SUMMARY | ~2019-06-30 | XMS | Encounter Summary ---
Demographics + + + | Address | [address] | | | [place] [address] | + + + | Home Phone | | + + + | Preferred Language | Unknown | + + + | Marital Status | | + + + | Anabaptist Affiliation | 1041 | + + + | Race | Unknown | + + + | Ethnic Group | Unknown | + + + Author + + + | Author | [facility] | | | and Luisana | + + + | Organization | [facility] | | | and [...] Team Providers + +------+ + | Care Transcription Typist Name | Role | Phone | + +------+ + | Fabrice Hansen DO | PCP | | + +------+ + Encounter Details +--------+ + + + + | Date | Type | Department | Care Team | Description | +--------+ + + + + | 09/09/ | Orders Only | [facility] | Fabrice Hansen | | | 2019 | | [facility] | Refug[address]ias[address] | | | | | [address] | [address] | | | | | [address] | [address] [place], [place] | | | | | [place], [place] | [address] | | | | | [address] | | | | | | [phone] | | | +--------+ + + + [...] | | | | | [place] [address] | | | | | | [phone] | | | | | | | | +--------+---------+ + + + documented as of this encounter Visit Diagnoses Not on filedocumented in this encounter"
--- OUTSIDE RECORDS SUMMARY | ~2019-06-30 | XMS | Encounter Summary ---
Demographics + + + | Address | [address] | | | [place] [address] | + + + | Home Phone | | + + + | Preferred Language | Unknown | + + + | Marital Status | | + + + | Baptism Affiliation | 1041 | + + + | Race | Unknown | + + + | Ethnic Group | Unknown | + + + Author + + + | Author | [facility] | | | and Luisana | + + + | Organization | [facility] | | | [...] Team Providers + +------+ + | Care Mold Puller Name | Role | Phone | + +------+ + | Fabrice Hansen DO | PCP | | + +------+ + Encounter Details +--------+ + + + + | Date | Type | Department | Care Team | Description | +--------+ + + + + | 03/01/ | Orders Only | [facility] | Conversion | | | 2016 | | CONVERSION [address] | Transaction, | | | | | [address] | Provider Unknown | | | | | [place], [place] | [phone] | | | | | [address] | | | | | | [phone] | | | +--------+ + + + [...] | | | | | [place] [address] | | | | | | [phone] | | | | | | | | +--------+---------+ + + + documented as of this encounter Visit Diagnoses Not on filedocumented in this encounter"
--- OUTSIDE RECORDS SUMMARY | ~2019-06-30 | XMS | Encounter Summary ---
Demographics + + + | Address | [address] | | | [place] [address] | + + + | Home Phone | | + + + | Preferred Language | Unknown | + + + | Marital Status | | + + + | Quaker Affiliation | 1041 | + + + | Race | Unknown | + + + | Ethnic Group | Unknown | + + + Author + + + | Author | [facility] | | | and Luisana | + + + | Organization | [facility] | | | [...] Team Providers + +------+ + | Care Edge Grinder Name | Role | Phone | + +------+ + | Fabrice Hansen DO | PCP | | + +------+ + Reason for Visit +--------+ + | Reason | Comments | +--------+ + | Other | coordinate care | +--------+ + Encounter Details +--------+ + + + + | Date | Type | Department | Care Team | Description | +--------+ + + + + | 11/18/ | Telephone | [facility] | Meme Le | Marylou (coordinate | | 2019 | | GASTROENTEROLOGY | A, OPERATIONS PROCESSOR [address] | care) | | | | [address] | [place] [address] | | | | | [place], [place] | [phone] | | | | | [address] | | | | | | [phone] | | | +--------+ + + + [...] | 07/18/ | Office | Cardiology | Carnaghan, Erin | | | 2020 | Visit | | [address] | | | | | | [address] | | | | | | [place] [address] | | | | | | [phone] | | | | | | | | +--------+---------+ + + + documented as of this encounter Visit Diagnoses Not on filedocumented in this encounter"
--- OUTSIDE RECORDS SUMMARY | ~2019-06-30 | XMS | Encounter Summary ---
Demographics + + + | Address | [address] | | | [place] [address] | + + + | Home Phone | | + + + | Preferred Language | Unknown | + + + | Marital Status | | + + + | Rastafarian Affiliation | 1041 | + + + | Race | Unknown | + + + | Ethnic Group | Unknown | + + + Author + + + | Author | [facility] | | | and [place] | + + + | Organization | [facility] | | [...] Team Providers + +------+ + | Care Community Representative Name | Role | Phone | + +------+ + | Filemon Roy MD | PCP | | + +------+ + Encounter Details +--------+ + + + + | Date | Type | Department | Care Team | Description | +--------+ + + + + | 07/20/ | Hospital | [facility] | Conversion | | | 2018 | Encounter | [facility] | Transaction, | | | | | [address] | Provider Unknown | | | | | [place], [place] | [phone] | | | | | [address] | | | | | | [phone] | | | +--------+ + + + [...] | | | | | [place] [address] | | | | | | [phone] | | | | | | | | +--------+---------+ + + + documented as of this encounter Visit Diagnoses Not on filedocumented in this encounter"
--- OUTSIDE RECORDS SUMMARY | ~2019-06-30 | XMS | Encounter Summary ---
Demographics + + + | Address | [address] | | | [place] [address] | + + + | Home Phone | | + + + | Preferred Language | Unknown | + + + | Marital Status | | + + + | Bahai Affiliation | 1041 | + + + | Race | Unknown | + + + | Ethnic Group | Unknown | + + + Author + + + | Author | [facility] | | | and Luisana | + + + | Organization | [facility] | | [...] Team Providers + +------+ + | Care Packing And Shipping Clerk Name | Role | Phone | + +------+ + | Fabrice Hansen DO | PCP | | + +------+ + Reason for Visit + + + | Reason | Comments | + + + | Follow-up | | + + + Encounter Details +--------+ + + + + | Date | Type | Department | Care Team | Description | +--------+ + + + + | 11/10/ | Telephone | [facility] | Kasia Levin RN | Follow[facility]up | | 2019 | | [facility] | | | | | | [address] | | | | | | [address] [facility] [address] | | | | | | [place], [place] | | | | | | [address] | | | | | | [phone] | | | +--------+ + + + [...] [address] | | | | | | [place] [address] | | | | | | [phone] | | | | | | | | +--------+---------+ + + + documented as of this encounter Visit Diagnoses Not on filedocumented in this encounter"
--- OUTSIDE RECORDS SUMMARY | ~2019-06-30 | XMS | Encounter Summary ---
Demographics + + + | Address | [address] | | | [place] [address] | + + + | Home Phone | | + + + | Preferred Language | Unknown | + + + | Marital Status | | + + + | Shinto Affiliation | 1041 | + + + | Race | Unknown | + + + | Ethnic Group | Unknown | + + + Author + + + | Author | [facility] | | | and [place] | + + + | Organization | [facility] | | [...] Team Providers + +------+ + | Care Energy Conservation Technician Name | Role | Phone | + [...] Description | +--------+--------+ + + + | 04/16/ | Refill | [facility] | Fabrice Hansen | Medication Refill | | 2020 | | [facility] | DO Lucius [address] | | | | | [address] | [facility] | | | | | [address] [facility] [address] | [address] [place], [place] | | | | | [place], [place] | [id number] | | | | | [address] | | | | | | [phone] | | | +--------+--------+ + + + [...] 07/18/ | Office | Cardiology | Erin Lmion | | | 2019 | Visit | | [address] | | | | | | [address] | | | | | | [place] [address] | | | | | | [phone] | | | | | | | | +--------+---------+ + + + documented as of this encounter Visit Diagnoses Not on filedocumented in this encounter"
--- OUTSIDE RECORDS SUMMARY | ~2019-06-30 | XMS | Encounter Summary ---
Demographics + + + | Address | [address] | | | [place] [address] | + + + | Home Phone | | + + + | Preferred Language | Unknown | + + + | Marital Status | | + + + | Synagogue Affiliation | 1041 | + + + | Race | Unknown | + + + | Ethnic Group | Unknown | + + + Author + + + | Author | [facility] | | | and [place] | + + + | Organization | [facility] | | | [...] Team Providers + +------+ + | Care Tin Roofer Name | Role | Phone | + +------+ + | Fabrice Amos DO | PCP | | + +------+ + Encounter Details +--------+---------+ + + + | Date | Type | Department | Care Team | Description | +--------+---------+ + + + | 11/09/ | Surgery | [facility] | Rashi Thompson MD | ERCP, [facility] | | 2019 | | [facility] | [address] [place] | | | | | [address]TRA [address] | [address] | | | | | [address] | [address] | | | | | [address] | | | | | | [phone] | | | +--------+---------+ + + + Social History [...] + + + | Blood Pressure | 120/55 | 11/11/2018 3:29 PM | | | | | PDT | | + + + + + | Pulse | 56 | 11/11/2018 3:29 PM | | | | | PDT | | + + + + + | Temperature | 36.6 C (97.8 F) | 11/11/2018 3:29 PM | | | | | PDT | | + + + + + | Respiratory Rate | 16 | 11/11/2018 3:29 PM | | | | | PDT | | + + + + + | Oxygen Saturation | 94% | 11/11/2018 3:29 PM | | | | | PDT | | + + + + + | Inhaled Oxygen | - | - | | | Concentration | | | | + + + + + | Weight | 62.8 kg (138 lb 6.4 | 11/09/2018 11:16 AM | | | | oz) | PDT | | + + + + + | Height | 162.6 cm (5' 4") | 11/09/2018 11:16 AM | | | | | PDT | | + + + + + | Body Mass Index | 23.76 | 11/09/2018 11:16 AM | | | | | PDT | | + + + + + documented in this encounter Discharge Summaries Dmitriy Muñoz RN - 11/11/2018 4:56 PM PDTPt doing well. Tolerating gen diet. Reviewed, un derstands, has copy of instructions. Home with . reddie Walton MD - 11/11/2018 4:38 PM PDT [facility] HOSPITALIST DISCHARGE SUMMARY PATIENT NAME: Sharon Way DATE OF : 1945 DATE OF ADMISSION: 11/09/2018 DATE OF DISCHARGE: 11/11/2018 PRIMARY CARE PHYSICIAN: Fabrice Amos, DISCHARGE DIAGNOSES: Principal Problem: Choledocholithiasis of bile duct with obstruction Active Medical Problems: Acute cholangitis Choledochoduodenal fistula Left intrahepatic duct stricture Bradycardia Essential hypertension Coronary artery disease COPD Tobacco use CONSULTANTS THIS ADMISSION: Gastroenterology with Rashi Thompson MD PROCEDURES THIS ADMISSION: ERCP with cholangioscopy, biliary sphincterotomy, balloon extra ction and dilation of a left intrahepatic duct stricture HOSPITAL COURSE: The patient is a 73-year-old female with a history of HTN, CAD, hypothyroidism and GERD. S he was admitted post ERCP procedure undertaken to treat choledocholithiasis. Follow-up labo ratory studies postprocedure revealed a elevated white cell count 19,000. It was felt the p atient had acute cholangitis and she was started on oral antibiotics with ciprofloxacin and metronidazole. Over the course of the next day she began to feel better but then developed acute onset of pain at noon while eating lunch. Repeat laboratory studies look good includi ng a lipase level. Her diet was then slowly advanced which was tolerated well. On the day of discharge she was feeling much better and able to take her oral intake without difficulty . She was noted by the hospital staff to have a pulse in the mid 40s. Her beta-jason whi ch was was discontinued. An EKG demonstrated sinus bradycardia and it was otherwise unchang ed from previous EKGs noted in the chart. The patient does have a history of smoking was co unseled on the importance of stopping. Strategies to help her with this were reviewed. The patient will follow-up with her primary care provider next couple of weeks will need to hav e her blood pressure rechecked at that time one could consider reintroducing her beta-blocke r but at a lower dose. She has plans to follow-up with the GI team for a repeat ERCP in the near future. DISCHARGE EXAM: Temp: [36.3 C (97.4 F)-36.6 C (97.8 F)] 36.6 C (97.8 F) Pulse: [44-56] 56 Resp: [14-18] 16 BP: (99-132)/(42-72) 120/55 General appearance - female appearing his stated age Mental status - alert, oriented to person, place, and time Chest - clear to auscultation, crackles wheezes were noted Heart - normal rate, regular rhythm, normal S1, S2 Abdomen - soft, nontender, nondistended, no masses or organomegaly Extremities - no pedal edema DISCHARGE LABS: Lab Results Component Value Date WBC 9.86 11/11/2018 HGB 11.7 11/11/2018 HCT 35.6 11/11/2018 MCV 100.3 (H) 11/11/2018 LABPLAT 258 05/25/2018 PLT 234 11/11/2018 Lab Results Component Value Date CREA 0.77 11/11/2018 BUN 10 11/11/2018 NA 144 11/11/2018 K 3.5 11/11/2018 CL 109 11/11/2018 CO2 32 (H) 11/11/2018 DISCHARGE DISPOSITION: home FOLLOW UP: Meme Le NP New address: [address] [place] [address] On 11/24/2018 Follow up appointment with your GI provider at 10:50am. Fabrice Amos DO [address] [facility] [address] In 1 week ISSUES REQUIRING FOLLOW UP AFTER DISCHARGE: The patient will need a follow-up ERCP in 6 to 8 weeks to reevaluate the left intrahepatic duct stricture. DISCHARGE MEDICATIONS: Discharge Medications New Medications Details ciprofloxacin 500 mg tablet Take 1 tablet by mouth 2 times daily for 7 days. Indications: Infection of the Biliary Tra ct aka: CIPRO metroNIDAZOLE 250 mg tablet Take 1 tablet by mouth 3 times daily for 7 days. Indications: Bacteria in the Blood aka: FLAGYL probiotic capsule Take 1 capsule by mouth 2 times daily (with breakfast & dinner) for 12 days. Unchanged Medications Details acetaminophen 500 mg tablet [...] tablet Take 50 mcg by mouth Daily. aka: SYNTHROID lisinopril 10 mg tablet Take 10 mg by mouth Daily. aka: PRINIVIL, ZESTRIL nitroglycerin 0.[address] 0.4 mg under the tongue every 5 minutes as needed for Chest pain. aka: NITROSTAT pantoprazole 40 mg tablet Take 1 tablet by mouth Daily. aka: PROTONIX traZODone 150 MG tablet Take 75-150 mg by mouth Daily. aka: DESYREL triamcinolone 0.025% ointment Apply 0.025 Units topically as needed for Rash. aka: KENALOG venlafaxine 75 MG tablet Take 75 mg by mouth Daily. aka: EFFEXOR Discontinued Medications metoprolol succinate 25 mg 24 hr tablet aka: TOPROL-XL TIME SPENT ON DISCHARGE: greater than 30 minutes Portions of this chart may have been created with [employer]ware voice recognition software. Occasi onal wrong-word or sound-alike substitutions may have occurred due to the inherent conroy itations of voice recognition software. Please read the chart carefully and recognize, using context, where these substitutions have occurred documented in this encou nter Discharge Instructions Instructions Dmitriy Muñoz RN - 11/11/2018 Gallstoneswith Biliary Colic Your abdominal paindue to irritation and spasm of the gallbladder.This is called biliar y colic.The gallbladder is a small sac under the liver, which stores and releases a bile. Bile is a fluid made in the liver that aids in the digestion of fat.A collection of saulo ls may form stones inside the gallbladder (gallstones). Gallstones can cause the gallbladder to spasm. If they block the duct out of the gallbladder, theycan cause pain and even an i nfection. A number of factors increase the risk for having gallstones: Being female Being severely overweight (obese) Older age Losing or gaining weight quickly Eating a high-calorie diet Being Taking hormone therapy Having diabetes Home care Rest in bed. Drink only clear liquids until you feel better. You may have been prescribed medicine for pain or nausea. Take these as directed. Fat in your diet makes the gallbladder contract and may cause increased pain. Don't eat foods that are high in fat (such as full-fat dairy, fried foods, and fatty meats) for at jose st 2 days. If you are overweight, talk to your healthcare provider about losing weight. Follow-up care Follow up with your healthcare provider or as advised. There is a chance that you will have another episode of pain from your gallstonesat some point.Removal of the gallbladder is an option to prevent this. Talk with your healthcare provider about your treatment options. When to seek medical advice Call your healthcare provider if any of the following occur: Worsening pain or pain lasting for longer than 6 hours Pain moving to the right lower belly Repeated vomiting Swollen belly Fever of 100.4F (38C) or higher, or as directed by your healthcare provider Very dark urine, light colored stools, or yellow color of the skin or eyes Chest, arm, back, neck or jaw pain Date Last Reviewed: 04/09/201719993797-2069 [employer]. [address] [place] [address]. All righ ts reserved. This information is not intended as a substitute for professional medical care. Always follow your healthcare professional's instructions. documented in this encounter Medications at Time [...] documented as of this encounter Progress Notes Brandi Love DO - 11/11/2018 10:49 AM PDT GASTROENTEROLOGY INPATIENT DAILY PROGRESS NOTE Brandi Love DO PGY1 Internal Medicine PATIENT INFORMATION Patient Name: Sharon Way Date of : 1945 Date of Admission: 11/09/2018 Hospital Day #: LOS: 0 days Encounter Information: Date of Service: 11/11/2018 11:02 Impression and Plan: Assessment: -choledochoduodenal fistula s/p ERCP -choledocholithiasis w/ obstruction s/p ERCP w/ biliary sphincterotomy and stent placement -left intrahepatic duct stricture with dilation s/p dilation -cholangitis -h/o cholecystectomy ~40 years ago Plan: - recommend 7-10 day course of abx for e/o cholangitis on imaging - will need repeat ERCP in 6-8 weeks to evaluate the left intra-hepatic duct stricture - advance diet as tolerated to general diet - LOW FAT FOODS ONLY - patient okay to discharge home today per GI Pt seen and examined, and case discussed with Dr. Thompson. Subjective: Sharon aWy is a 73 y.o. female being seen in follow-up for post ERCP for choledocho lithiasis. She had cholecystectomy 40 years ago, multiple episodes of RUQ pain, nausea and vomiting wi th subjective fevers. MRCP on 11/02/18 showing e/o choledocholithiasis, CBD and left IHD dila tion with e/o cholangitis who was given STAT referral for ERCP with Dr. Thompson. ERCP 11/09/2018 Impression: - Choledocoduodenal fistula - Choledocholithiasis without cholecystitis and with an obstruction was found. Biliary stones were removal was accomplished by cholangioscopy, biliary sphincterotomy and balloon extraction. A 10 Solomon Islander 7 cm biliary stent was placed through the common bile duct. - Left intrahepatic duct stricture with dilation s/p dilation with 4 mm Hurricane balloon. Patient was admitted after complicated ERCP for post-procedure observation. Tolerating clear liquid diet well yesterday morning and then developed increasing abdominal pain/N/V after eating fatty foods. Lipase was only mildly elevated arguing against post-ERC P pancreatitis. Diet was changed to full liquids overnight and patient given 1 dose of IV pr otonix and 1 dose GI cocktail. Patient doing much better this morning. Improved abdominal pa in. Denies nausea and no emesis overnight. Fever past 24 hrs: None Remarkable labs: Lipase 127, WBC 9.8(12.2)(19.6), Hgb 11.7(12.1)(13.2), AST/ALT 28/69 (60 /117)(157/169), T.bili 0.8(0.7)(0.5) Abx: Ciprofloxacin 500 mg qHS, flagyl 250 BID for total course of 7-10 days GI meds: Protonix 40 mg QD (GERD) Anticoag: None Diet: Advance diet as tolerated - general diet Tolerating? Tolerating clear liquid diet today Objective: Vitals: Temp: 36.5 C (97.7 F) BP: 132/56 Pulse: 54 Resp: 16 SpO2: 97 % on Min/Max Temp past 24 hours:Temp Av.7 C (98 F) Min: 36.3 C (97.4 F) Max: 37. 2 C (98.9 F) Wt. Admission: Weight: 62.1 kg (137 lb) Wt. Current: Weight: 62.8 kg (138 lb 6.4 oz) Physical Examination: GEN: well-developed, well-nourished; in no acute distress; patient able to sit up and lay down with difficulty HEENT: atraumatic, normocephalic, conjunctiva clear; sclera nonicteric RESP: lungs clear without W/R/R, normal respiratory effort C/V: regular rate and rhythm without murmurs GI: Soft, mild epigastric and RUQ tenderness to palpation, improved LUQ pain, nondistended with active bowel tones; no organomegaly or masses SKIN: warm, dry, no lesions, rash, jaundice M/S: Gait deferred PSYCH: normal mood and affect, cooperative NEURO: alert and oriented x 3 Recent Labs Lab 11/11/1844911/10/1843511/09/182015 WBC 9.86 12.26* 19.63* HGB 11.7 12.1 13.2 HCT 35.6 35.6 37.5 PLT 234 246 271 Recent Labs Lab 11/11/1844911/10/1843511/09/182015 NA 144 137 141 K 3.5 4.0 3.8 CL 109 104 107 CO2 32* 28 24 BUN 10 16 10 CREA 0.77 0.75 0.74 CALCIUM 9.1 8.8 9.4 Laboratory and Diagnostic Studies Reviewed: Available data and images were reviewed person ally. See reports. Significant results and findings are addressed here or in the Assessment and Plan. [facility] Associated attestation - Rashi Thompson MD - 11/11/2018 4:29 PM PDTI personally interviewe d and examined the patient. I confirmed the hassan components of the history and PE. I reviewed the note as written by the resident physician, and discussed the patient with the resident. I agree with the impressions and plans and have listed any needed clarifications to the bes t of my abilities and the clinical assessment at this time. Will plan for repeat ERCP in first week of January. Rashi Thompson MD - 11/10/2018 6:36 P M PDTBrief GI Note Patient was seen in the afternoon, she had increased cramping pain after eating cottage mary jessica and a big mac. I had previously counseled her against eating high fat foods as it would trigger a spasmodic response. I reiterated my suggestion to stay off high fat foods. Mild el evation of lipase, given the duration of the procedure, this was expected. Nicotine patch Full liquids , low fat - this needs to be emphasized Will advance diet as tolerated Continue IVF No indication to trend lipase Serial abdominal exams lim, Freddie Oconnor MD - 03/2018 3:45 PM PDT Patient: Sharon Way Date of : 1945 Admit Date: 11/09/2018 Date of Service: 11/10/2018 PCP: Fabrice Amos DO Hospital Day: 0 Hospital Course: 73 y/o female with a history of HTN, CAD, hypothyroidism and GERD. Was admitted post [facility] for an ERCP for choledocolithiasis. Assessment and Plan: Choledocholithiasis: - More pain with advancing diet - Status post ERCP - Reviewed the case with Dr. Thompson from GI, 11/10 - Check lipase level Cholangitis: - White blood cell count decreasing - Continue the oral ciprofloxacin and metronidazole, day #2 COPD: - Stable - Continue the beta agonist inhaler Atherosclerotic heart disease: - Continue the patient's cardiac medications with the BB, statin and ACEi Hypothyroidism: - Continue the home dosing of her thyroid supplementation Active Hospital Problems Diagnosis Calculus of bile duct with cholangitis and obstruction, unspecified cholangitis acuity Resolved Hospital Problems No resolved problems to display. I have reviewed and updated the problem list. Disposition: To be determined CODE STATUS: Full Code DVT prophylaxis: SCDs Subjective: CC: Abdominal pain The patient continues with the multiple issues as described above. Review of Systems Respiratory: Negative for shortness of breath. Cardiovascular: Negative for chest pain. Gastrointestinal: Positive for abdominal pain. Objective: Objective Vital Signs 11/08 699 - 11/09 0659 11/09 07 - 11/10 0659 11/10 699 - 11/10 1545 Most Rec ent Temp (C) 36.1 - 36.8 36.8 - 37.2 37.2 (98.9) Pulse 55 - 72 52 - 57 57 Resp 13 - 16 16 16 BP 92/57 - 130/94 94/54 - 123/51 94/54 SpO2 (%) 93 - 100 96 - 98 97 Flow (L/min) 2 - 6 2 Weight (kg) 62.1 62.8 I/O last 3 completed shifts: In: 3057 [P.O.:726; I.V.:2331] Out: 1085 [Urine:1085] Wt Readings from Last 3 Encounters: 11/09/18 62.8 kg (138 lb 6.4 oz) 11/02/18 63.7 kg (140 lb 6.4 oz) 09/27/18 62.2 kg (137 lb 1.6 oz) Active Lines PIV Line Peripheral IV Line - Single Lumen 11/09/18 1125 Right Hand ctge-vqo-ilfqft catheter system 20 gauge;1 in length 1 day Active Tubes/Drains None Physical Exam Constitutional: She is oriented to person, place, and time. Female appearing her stated age Cardiovascular: Normal rate and regular rhythm. Pulmonary/Chest: Effort normal. Abdominal: Flat, positive bowel sounds, mild epigastric discomfort on deep palpation, no rebound is no [place] Neurological: She is oriented to person, place, and time. Skin: Skin is warm. 24 HOUR LABS: Recent Results (from the past 24 hour(s)) CBC with Differential Result Value Ref Range WBC 19.63 (H) 3.80 - 11.00 K/uL RBC 3.88 3.70 - 5.10 M/uL Hemoglobin 13.2 11.3 - 15.5 g/dL Hct 37.5 34.0 - 46.0 % MCV 96.6 80.0 - 100.0 fL MCH 34.0 27.0 - 34.0 pg MCHC 35.2 32.0 - 35.5 g/dL RDW-CV 12.9 11.0 - 15.5 % Platelet Count 271 150 - 400 K/uL MPV 10.5 9.3 - 12.7 fL % Neutrophils 92.7 (H) 40.0 - 75.0 % % Lymphocytes 4.7 (L) 15.0 - 48.0 % % Monocytes 1.9 0.0 - 12.0 % % Eosinophils 0.0 0.0 - 7.0 % % Basophils 0.2 0.0 - 2.0 % % Immature Granulocytes 0.5 0.0 - 1.0 % Absolute Neutrophils 18.20 (H) 1.90 - 7.40 K/uL Absolute Lymphocytes 0.92 (L) 1.00 - 3.90 K/uL Absolute Monocytes 0.37 0.00 - 0.80 K/uL Absolute Eosinophils 0.00 0.00 - 0.50 K/uL Absolute Basophils 0.04 0.00 - 0.10 K/uL Absolute Immature Granulocytes 0.10 (H) 0.00 - 0.03 K/uL Comprehensive Metabolic Panel Result Value Ref Range Na 141 135 - 145 mmol/L K 3.8 3.5 - 5.0 mmol/L Cl 107 99 - 109 mmol/L CO2 24 21 - 28 mmol/L Calcium 9.4 8.5 - 10.2 mg/dL Anion Gap 10 5 - 16 mmol/L Albumin 4.0 3.3 - 4.8 g/dL BUN 10 8 - 25 mg/dL Creatinine 0.74 0.50 - 1.00 mg/dL Glucose 102 (H) 65 - 99 mg/dL Total Protein 6.1 6.1 - 7.8 g/dL Alkaline Phosphatase 160 (H) 35 - 115 U/L ALT 169 (H) 10 - 65 U/L AST 157 (H) 10 - 45 U/L Bilirubin Total 0.5 0.2 - 1.1 mg/dL Estimated GFR 81 (L) >=90 mL/min/1.73m2 Basic Metabolic Panel Result Value Ref Range Na 137 135 - 145 mmol/L K 4.0 3.5 - 5.0 mmol/L Cl 104 99 - 109 mmol/L CO2 28 21 - 28 mmol/L Anion Gap 5 5 - 16 mmol/L Calcium 8.8 8.5 - 10.2 mg/dL BUN 16 8 - 25 mg/dL Creatinine 0.75 0.50 - 1.00 mg/dL Glucose 112 (H) 65 - 99 mg/dL Estimated GFR 80 (L) >=90 mL/min/1.73m2 CBC with Differential Result Value Ref Range WBC 12.26 (H) 3.80 - 11.00 K/uL RBC 3.56 (L) 3.70 - 5.10 M/uL Hemoglobin 12.1 11.3 - 15.5 g/dL Hct 35.6 34.0 - 46.0 % MCV 100.0 80.0 - 100.0 fL MCH 34.0 27.0 - 34.0 pg MCHC 34.0 32.0 - 35.5 g/dL RDW-CV 13.0 11.0 - 15.5 % Platelet Count 246 150 - 400 K/uL MPV 10.4 9.3 - 12.7 fL % Neutrophils 85.9 (H) 40.0 - 75.0 % % Lymphocytes 8.1 (L) 15.0 - 48.0 % % Monocytes 5.3 0.0 - 12.0 % % Eosinophils 0.0 0.0 - 7.0 % % Basophils 0.1 0.0 - 2.0 % % Immature Granulocytes 0.6 0.0 - 1.0 % Absolute Neutrophils 10.53 (H) 1.90 - 7.40 K/uL Absolute Lymphocytes 0.99 (L) 1.00 - 3.90 K/uL Absolute Monocytes 0.65 0.00 - 0.80 K/uL Absolute Eosinophils 0.00 0.00 - 0.50 K/uL Absolute Basophils 0.01 0.00 - 0.10 K/uL Absolute Immature Granulocytes 0.07 (H) 0.00 - 0.03 K/uL Platelet Estimate Adequate Hepatic Function Panel Result Value Ref Range Albumin 3.8 3.3 - 4.8 g/dL Total Protein 5.6 (L) 6.1 - 7.8 g/dL Alkaline Phosphatase 132 (H) 35 - 115 U/L ALT 117 (H) 10 - 65 U/L AST 60 (H) 10 - 45 U/L Bilirubin Direct 0.2 0.0 - 0.4 mg/dL Bilirubin Total 0.7 0.2 - 1.1 mg/dL Glucose, POC Date/Time Value Ref Range Status 11/09/2018 11:31 89 65 - 99 mg/dL Final Comment: Performed by [facility] [address] [place] [id number] All pertinent labs and imaging have been reviewed. Please refer to the Assessment and Plan for details on management. I spent 36 minutes with the patient and on the patient's unit, with over 50% spent in couns eling and/or coordination of care. Please refer to the Assessment and Plan for details. Electronically signed by: Freddie Walton MD, FACP, [facility] 11/10/2018 15:45 Portions of this chart may have been created with [employer] voice recognition software. Occasi onal wrong-word or sound-alike substitutions may have occurred due to the inherent conroy itations of voice recognition software. Please read the chart carefully and recognize, using context, where these substitutions have occurred Lorrie Camp MSW - 11/10/2018 10:07 AM PDTNo Social Work D/C needs identified at this time. Brandi Irby DO - 11/10/2018 9:41 AM PDT GASTROENTEROLOGY INPATIENT DAILY PROGRESS NOTE [facility] PATIENT INFORMATION Patient Name: Sharon Way Date of : 1945 Date of Admission: 11/09/2018 Hospital Day #: LOS: 0 days Encounter Information: Date of Service: 11/10/2018 9:42 Impression and Plan: Assessment: -choledochoduodenal fistula s/p ERCP -choledocholithiasis w/ obstruction s/p ERCP w/ biliary sphincterotomy and stent placement -left intrahepatic duct stricture with dilation s/p dilation -cholangitis -h/o cholecystectomy ~40 years ago Plan: - no evidence of post-ERCP pancreatitis with stable vitals, improved leukocytosis and stabl e abdominal exam - will need repeat ERCP in 6-8 weeks to evaluate the left intra-hepatic duct stricture - advance diet as tolerated to general diet - will likely be ready for discharge tonight Pt seen and examined, and case discussed with Dr. Thompson. Subjective: Sharon Way is a 73 y.o. female being seen in follow-up for post ERCP for choledocho lithiasis. She had cholecystectomy 40 years ago, multiple episodes of RUQ pain, nausea and vomiting wi th subjective fevers. MRCP on 11/02/18 showing e/o choledocholithiasis, CBD and left IHD dila tion with e/o cholangitis who was given STAT referral for ERCP with Dr. Thompson. ERCP 11/09/2018 Impression: - Choledocoduodenal fistula - Choledocholithiasis without cholecystitis and with an obstruction was found. Biliary stones were removal was accomplished by cholangioscopy, biliary sphincterotomy and balloon extraction. A 10 [place] Islander 7 cm biliary stent was placed through the common bile duct. - Left intrahepatic duct stricture with dilation s/p dilation with 4 mm Hurricane balloon. Patient was admitted after complicated ERCP for post-procedure observation. Tolerating clear liquid diet well. Mild nausea but no emesis. Passing gas, no bowel movemen ts since procedure. Stable epigastric and LUQ abdominal pain to touch but able to sit up and lay down without pain. Patient up and walking around room and floor without difficulty. Fever past 24 hrs: None Remarkable labs: WBC 12.2(19.6), Hgb 12.1(13.2), AST/ALT 60/117(157/169), T.bili 0.7(0.5) Abx: Ciprofloxacin 500 mg qHS, flagyl 250 BID GI meds: Protonix 40 mg QD (GERD) Anticoag: None Diet: Advance diet as tolerated - general diet Tolerating? Tolerating clear liquid diet today Objective: Vitals: Temp: 36.8 C (98.3 F) BP: 123/51 Pulse: 52 Resp: 16 SpO2: 98 % on Min/Max Temp past 24 hours:Temp Av.4 C (97.6 F) Min: 36.1 C (96.9 F) Max: 3 6.8 C (98.3 F) Wt. Admission: Weight: 62.1 kg (137 lb) Wt. Current: Weight: 62.8 kg (138 lb 6.4 oz) Physical Examination: GEN: well-developed, well-nourished; in no acute distress; patient able to sit up and lay down with difficulty HEENT: atraumatic, normocephalic, conjunctiva clear; sclera nonicteric RESP: lungs clear without W/R/R, normal respiratory effort C/V: regular rate and rhythm without murmurs GI: soft, tender to palpation in epigastric and LUQ region, nondistended with active bowel tones; no organomegaly or masses SKIN: warm, dry, no lesions, rash, jaundice M/S: Gait deferred PSYCH: normal mood and affect, cooperative NEURO: alert and oriented x 3 Recent Labs Lab 11/10/186 11/09/182015 WBC 12.26* 19.63* HGB 12.1 13.2 HCT 35.6 37.5 PLT 246 271 Recent Labs Lab 11/10/1843501/19 2016 NA 137 141 K 4.0 3.8 CL 104 107 CO2 28 24 BUN 16 10 CREA 0.75 0.74 CALCIUM 8.8 9.4 Laboratory and Diagnostic Studies Reviewed: Available data and images were reviewed person lalay. See reports. Significant results and findings are addressed here or in the Assessment and Plan. [facility] Associated attestation - Rashi Thompson MD - 11/10/2018 3:58 PM PDTI personally interviewe d and examined the patient. I confirmed the hassan components of the history and PE. I reviewed the note as written by the resident physician, and discussed the patient with the resident. I agree with the impressions and plans and have listed any needed clarifications to the bes t of my abilities and the clinical assessment at this time. Patient was doing well with minimal symptoms this am. She was ambulating, but noted mild di scomfort along the left ribcage and abdomen. We advanced her diet and her symptoms seemed to worsen, needing pain medications. Recommend CLD for 12 hours and slow advancement with diet .Rashi Thompson MD - 11/09/2018 6:47 PM PDTBrief GI Note Evaluated Ms. Way post procedure in PACU.She is awake And requested information about the procedure explained to her the findings of the ERCP.She had mild nausea for which she re ceived Zofran.She had received 50 Micrograms Of fentanyl prior to my visit. She noted some b loating and I encouraged her to ambulate when she is ready. IV fluids LR at 100 cc an hour Serial abdominal exam CBC CMP pending IV Zofran RTC IV pain medications as needed Clear liquid diet erRashi platt MD - 11/09/2018 8:03 AM PDTFormatting of this note might be different from the shavon ginal. PRESEDATION ASSESSMENT/PLAN Pertinent History and Pre-Procedure Diagnosis: Patient presents to endoscopy for ERCP for choledocholithiasis She had cholecystectomy 40 years ago, multiple episodes of RUQ pain nausea vomiting. 6 luis hs to 1 year ago she had an episode of "sepsis" and she describes a liver abscess. She has m ild abdominal pain. Current smoker Proposed Procedure: ERCP with cholangioscopy . Discussed risks and benefits of the procedur e as detailed in the consent process. The patient clearly understands risks (pancreatitis , bleeding among others) and benefits as detailed in the consent process. Patient agrees for t he procedure. Sedation Preassessment: ASA Classification: ASA 2 - A patient with mild systemic disease Past Medical History: Diagnosis Date Anesthesia complication TAKES LONG TIME TO WAKE Arthritis Asthma Calculus of bile duct with cholangitis and obstruction Cholelithiasis COPD (chronic obstructive pulmonary disease) (HCC) 10/18/2012 Coronary artery disease 2001 CABG Depression Disorder of thyroid GERD (gastroesophageal [...] TUNNEL RELEASE; Surgeon: Yung Gomez MD; Location: [facility] ; Service: Neurosurgery; Laterality: Right; SECTION CHOLECYSTECTOMY COLONOSCOPY 07/2017 CORONARY ARTERY BYPASS GRAFT 2000 [place] HYSTERECTOMY LIVER SURGERY 01/2018 LIVER DRAIN FOR LIVER ABCESS OTHER SURGICAL HISTORY OTHER SURGICAL HISTORY CATARACT EXTRACTION OTHER SURGICAL HISTORY UNLISTED PROCEDURE ARTHROSCOPY - bilateral thumbs OTHER SURGICAL HISTORY 08/03/2017 COLONOSCOPY WITH EGD - Procedure: COLONOSCOPY W/ EGD; Surgeon: Rich Farnk MD; L ocation: [facility]; Service: Gastroenterology; Laterality: N/A; UPPER GASTROINTESTINAL ENDOSCOPY 07/2017 Allergies Allergen Reactions Morphine Anxiety and Hallucination Agitation Penicillins Hives Hives Sulfa Antibiotics Hives Hives Wellbutrin [Bupropion] Hives Hives Chantix [Varenicline] Anxiety Agitation, Extreme agitation and mood changes and nausea SEE MED LIST Patient Reported Taking Dosage acetaminophen (TYLENOL) 500 mg tablet (Taking) Take 500 mg by mouth every 6 hours as need ed for Pain. acetaminophen (TYLENOL) 500 mg tablet (Taking/Discontinued) Take 500 mg by mouth every 6 (six) hours as needed for Pain. albuterol 90 mcg/puff inhaler (Taking) Inhale 2 puffs into the lungs every 6 hours as nee ded for Wheezing. albuterol 90 mcg/puff inhaler (Taking/Discontinued) Inhale 2 puffs into the lungs every 4 (four) hours as needed. aspirin 81 mg chewable tablet (Taking) Take 81 mg by mouth daily with breakfast. atorvaSTATin (LIPITOR) 40 mg tablet (Taking) Take 40 mg by mouth Daily. fluticasone (FLONASE) 50 mcg/nasal spray (Taking) 1 spray by Nasal route Twice daily as needed for Allergies. Number of times this order has been changed since signin Order Audit [place] levothyroxine (SYNTHROID) 50 mcg tablet (Taking) Take 50 mcg by mouth Daily. lisinopril (PRINIVIL, ZESTRIL) 10 mg tablet (Taking) Take 10 mg by mouth Daily. Number of times this order has been changed since signin Order Audit [place] metoprolol succinate (TOPROL-XL) 25 mg 24 hr tablet (Taking) Take 25 mg by mouth nightly. metoprolol succinate (TOPROL-XL) 25 mg 24 hr tablet (Taking/Discontinued) Take 1 tablet b y mouth daily. nitroglycerin (NITROSTAT) 0.4 mg SL tablet (Taking) Place 0.4 mg under the tongue every 5 minutes as needed for Chest pain. Number of times this order has been changed since signin Order Audit [place] pantoprazole (PROTONIX) 40 mg tablet (Taking) Take 1 tablet by mouth Daily. Number of times this order has been changed since signin Order Audit [place] traZODone (DESYREL) 150 MG tablet (Taking) Take 75-150 mg by mouth Daily. Number of times this order has been changed since signin Order Audit [place] triamcinolone (KENALOG) 0.025% ointment (Taking) Apply 0.025 Units topically as needed fo r Rash. Number of times this order has been changed since signin Order Audit [place] venlafaxine (EFFEXOR) 75 MG tablet (Taking) Take 75 mg by mouth Daily. Review of Systems: 10 point ROS completed and noncontributory other than listed in pertinent history. Exam within normal limits: Airway/Dental: yes Cardiac: Yes Chest/respiratory: Yes Level of consciousness: Normal Abdomen: abdomen is soft without significant tenderness, masses, organomegaly or guarding Plan for Sedation: General anesthesia ASSESSMENT: Principal Problem: Calculus of bile duct with cholangitis and obstruction, unspecified cholangitis acuity PLAN: Available medical records have been reviewed. Medication list has been reviewed. NPO status is acceptable. Patient approved for planned sedation and procedure. 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 Benefits and alternatives were reviewe d. Risks of procedure and sedation including bleeding, infection, perforation, missed lesion s were discussed. All questions were answered. Patient wishes to proceed. documented in this enco unter Plan of Treatment +--------+---------+ + + + | Date | Type | Specialty | Care Team | Description | +--------+---------+ + + + | 07/18/ | Office | Cardiology | [facility] | | | 2019 | Visit | | [facility] [address] | | | | | | [address] | | | | | | [place] [address] | | | | | | [phone] | | | | | | | | +--------+---------+ + + + documented as of this encounter Procedures + +--------+ + + + | Procedure Name | Priori | Date/Time | Associated Diagnosis | Comments | | | ty | | | | + +--------+ + + + | ECG 12 LEAD | Routin | 11/11/2018 | | Results for this | | | e | 10:06 AM | | procedure are in the | | | | PDT | | results section. | + +--------+ + + + | CBC WITH | Routin | 11/11/2018 | | Results for this | | DIFFERENTIAL | e | 4:50 AM | | procedure are in the | | | | PDT | | results section. | + +--------+ + + + | COMPREHENSIVE | Routin | 11/11/2018 | | Results for this | | METABOLIC PANEL | e | 4:50 AM | | procedure are in the | | | | PDT | | results section. | + +--------+ + + + | LIPASE | STAT | 11/10/2018 | | Results for this | | | | 3:31 PM | | procedure are in the | | | | PDT | | results section. | + +--------+ + + + | CBC WITH | Routin | 11/10/2018 | | Results for this | | DIFFERENTIAL | e | 4:36 AM | | procedure are in the | | | | PDT | | results section. | + +--------+ + + + | HEPATIC FUNCTION | Routin | 11/10/2018 | | Results for this | | PANEL | e | 4:36 AM | | procedure are in the | | | | PDT | | results section. | + +--------+ + + + | BASIC METABOLIC | Routin | 11/10/2018 | | Results for this | | PANEL | e | 4:36 AM | | procedure are in the | | | | PDT | | results section. | + +--------+ + + + | CBC WITH | Routin | 11/09/2018 | | Results for this | | DIFFERENTIAL | e | 8:16 PM | | procedure are in the | | | | PDT | | results section. | + +--------+ + + + | COMPREHENSIVE | Routin | 11/09/2018 | | Results for this | | METABOLIC PANEL | e | 8:16 PM | | procedure are in the | | | | PDT | | results section. | + +--------+ + + + | FL ERCP BILIARY ONLY | Routin | 11/09/2018 | Calculus of bile | Results for this | | | e | 5:18 PM | duct with | procedure are in the | | | | PDT | cholangitis and | results section. | | | | | obstruction, | | | | | | unspecified | | | | | | cholangitis acuity | | + +--------+ + + + | ERCP | Routin | 11/09/2018 | | Results for this | | | e | 1:37 PM | | procedure are in the | | | | PDT | | results section. | + +--------+ + + + | ERCP | | 11/09/2018 | Calculus of bile | | | | | 1:36 PM | duct with | | | | | PDT | cholangitis and | | | | | | obstruction, | | | | | | unspecified | | | | | | cholangitis acuity | | + +--------+ + + + +---+--------+ | | | | | Specia | | | l | | | Needs | | | RAD | +---+--------+ + +--------+ +---+ + | ECG 12 LEAD | Routin | 11/09/2018 | | Results for this | | | e | 11:40 AM | | procedure are in the | | | | PDT | | results section. | + +--------+ +---+ + | POC GLUCOSE | Routin | 11/09/2018 | | Results for this | | | e | 11:31 AM | | procedure are in the | | | | PDT | | results section. | + +--------+ +---+ + documented in this encounter Results ECG 12 lead (11/11/2018 10:06 AM PDT) + + | Specimen | + + | | + + + + + | Narrative | Performed At | + + + | HEART RATE:44 | [facility] | | bpmRR Interval:1364 msAtrial Rate:50 msP-R Interval:160 msP | [facility] | | Duration:168 msP Horizontal Elba:35 degP Front Elba:17 degQ Onset:508 | | | msQRSD Interval:98 msQT Interval:464 msQTcB:397 msQTcF:418 msQRS | | | Horizontal Elba:-76 degQRS Elba:-38 degI-40 Horizontal Elba:-25 | | | degI-40 Front Elba:-36 degT-40 Horizontal Elba:-90 degT-40 Front | | | Elba:-42 degT Horizontal [place]:234 degT Wave Elba:162 degS-T Horizontal | | | Elba:115 degS-T Front Elba:128 degSeverity:- ABNORMAL ECG | | | -INTERP:SINUS BRADYCARDIAINTERP:VENTRICULAR TRIGEMINYINTERP:LEFT AXIS | | | DEVIATIONINTERP:BORDERLINE R WAVE PROGRESSION, ANTERIOR | | | LEADSINTERP:NONSPECIFIC T ABNORMALITIES, ANT-LAT LEADSElectronically | | | signed by: BIBI RAGLAND 11-11-2018 14:52:09 | | |QRS Horizontal Elba:-76 deg | | |QRS Elba:-38 deg | | |I-40 Horizontal Elba:-25 deg | | |I-40 Front Elba:-36 deg | | |T-40 Horizontal Elba:-90 deg | | |T-40 Front Elba:-42 deg | | |T Horizontal Elba:234 deg | | |T Wave Elba:162 deg | | |S-T Horizontal Elba:115 deg | | |S-T Front Elba:128 deg | | |Severity:- ABNORMAL ECG - | | |INTERP:SINUS BRADYCARDIA | | |INTERP:VENTRICULAR TRIGEMINY | | |INTERP:LEFT AXIS DEVIATION | | |INTERP:BORDERLINE R WAVE PROGRESSION, ANTERIOR LEADS | | |INTERP:NONSPECIFIC T ABNORMALITIES, ANT-LAT LEADS | | |Electronically signed by: BIBI RAGLAND 11-11-2018 14:52:09 | | + + + + + + + + | Performing | Address | City/State/Zipcode | Phone Number | | Organization | | | | + + + + + | [facility] | [address] | [place] [address] | [phone] | + + + + + CBC with Differential (11/11/2018 4:50 AM PDT) + + + +------- ------+ + | Component | Value | Ref Range | Perfor med | Pathologist | | | | | At | Signature | + + + +------- ------+ + | WBC | 9.86 | 3.80 - 11.00 | [facility] | | | | | K/uL | [facility] | | | | | | [facility] | | | | | | MED[facility] | | | | | | CENTER | | | | | | LABORA TORY | | | | | | [facility] | | + + + +------- ------+ + | RBC | 3.55 (L) | 3.70 - 5.10 | [facility] [...] + +------- ------+ + | Hemoglobin | 11.7 | 11.3 - 15.5 | [facility] | | | | | g/dL | [facility] | | | | | | HEART | | | | | | MEDICA L | | | | | | CENTER | | | | | | LABORA TORY | | | | | | [facility] | | + + + +------- ------+ + | Hct | 35.6 | 34.0 - 46.0 % | [facility] | | | | | | [facility] | | | | | | [facility] | | | | | | MEDICA [facility] | | | | | | CENTER | | | | | | LABORA TORY | | | | | | [facility] | | + + + +------- ------+ + | MCV | 100.3 (H) | 80.0 - 100.0 fL | [facility] | | | | | | [facility] | | | | | | [facility]ART | | | | | | MEDICA [facility] | | | | | | CENTER | | | | | | LABORA TORY | | | | | | [facility] | | + + + +------- ------+ + | MCH | 33.0 | 27.0 - 34.0 pg | [facility] | | | | | | [facility] | | | | | | [facility] | | | | | | MEDICA [facility] | | | | | | CENTER | | | | | | LABORA TORY | | | | | | [place] | | + + + +------- ------+ + | MCHC | 32.9 | 32.0 - 35.5 | [facility] | | | | | g/dL | [facility] | | | | | | HE[facility] | | | | | | MED[facility] | | | | | | CENTER | | | | | | LABORA TORY | | | | | | [facility] | | + + + +------- ------+ + | RDW-CV | 13.2 | 11.0 - 15.5 % | [facility] | | | | | | [facility] | | | | | | [facility] | | | | | | MED[facility] | | | | | | CENTER | | | | | | LABORA TORY | | | | | | [facility] | | + + + +------- ------+ + | Platelet | 234 | 150 - 400 K/uL | [facility] [...] + +------- ------+ + | MPV | 10.5 | 9.3 - 12.7 fL | [facility] | | | | | | [facility] | | | | | | [facility] | | | | | | [facility] | | | | | | CENTER | | | | | | LABORA TORY | | | | | | [facility] | | + + + +------- ------+ + | % | 64.6 | 40.0 - 75.0 % | [facility] [...] + +------- ------+ + | % | 25.6 | 15.0 - 48.0 % | [facility] [...] +------- ------+ + | % Monocytes | 7.9 | 0.0 - 12.0 % | [facility] | | | | | | [facility] | | | | | | [facility] | | | | | | [facility] | | | | | | CENTER | | | | | | LABORA TORY | | | | | | [facility] | | + + + +------- ------+ + | % | 1.4 | 0.0 - 7.0 % | [facility] [...] +------- ------+ + | % Basophils | 0.3 | 0.0 - 2.0 % | [facility] [...] +------- ------+ + | % Immature | 0.2Comment: Immature | 0.0 - 1.0 % | [...] + +------- ------+ + | Absolute | 6.37 | 1.90 - 7.40 | [facility] [...] + +------- ------+ + | Absolute | 2.52 | 1.00 - 3.90 | [facility] [...] + +------- ------+ + | Absolute | 0.78 | 0.00 - 0.80 | [facility] [...] + +------- ------+ + | Absolute | 0.14 | 0.00 - 0.50 | [facility] [...] + +------- ------+ + | Absolute | 0.03 | 0.00 - 0.10 | [facility] [...] + +------- ------+ + | Absolute | 0.02Comment: Performed | 0.00 - 0.03 | [facility] | | | Immature | by [facility] [address], | K/uL | [facility] | | | Granulocyte | [place] [address] | | HEART | | | s |Performed by [facility] [address], [place] [address] | | MEDICA L | | | [...] | + + + + + | [facility] | [address] | [place] [address] | | | [facility] | | | | | LABORATORY [facility] | | | | + + + + + Comprehensive Metabolic Panel (11/11/2018 4:50 AM PDT) + + + + + + | Component | Value | Ref Range | Performed | Pathologist | | | | | At | Signature | + + + + + + | Na | 144 | 135 - 145 | [facility] | | | | | mmol/L | [facility] | | | | | | HEART | | | | | | MEDICAL | | | | | | CENTER | | | | | | LABORATORY | | | | | | [facility] | | + + + + + + | K | 3.5 | 3.5 - 5.0 | [facility] | | | | | mmol/L | [facility] | | | | | | HEART | | | | | | MEDICAL | | | | | | CENTER | | | | | | LABORATORY | | | | | | [facility] | | + + + + + + | Cl | 109 | 99 - 109 mmol/L | [facility] | | | | | | [facility] | | | | | | HE[facility] | | | | | | MEDICAL | | | | | | CENTER | | | | | | LABORATORY | | | | | | [place] | | + + + + + + | CO2 | 32 (H) | 21 - 28 mmol/L | [facility] | | | | | | [facility] | | | | | | [facility] | | | | | | MEDICAL | | | | | | CENTER | | | | | | LABORATORY | | | | | | [place] | | + + + + + + | Calcium | 9.1 | 8.5 - 10.2 | [facility] | | | | | mg/dL | [facility] | | | | | | HEART | | | | | | MEDICAL | | | | | | CENTER | | | | | | LABORATORY | | | | | | [place] | | + + + + + + | Anion Gap | 3 (L) | 5 - 16 mmol/L | [facility] | | | | | | [facility] | | | | | | HE[facility] | | | | | | MEDICAL | | | | | | CENTER | | | | | | LABORATORY | | | | | | [place] | | + + + + + + | Albumin | 3.8 | 3.3 - 4.8 g/dL | [facility] | | | | | | [facility] | | | | | | HE[facility] | | | | | | MEDICAL | | | | | | CENTER | | | | | | LABORATORY | | | | | | [place] | | + + + + + + | BUN | 10 | 8 - 25 mg/dL | [facility] | | | | | | [facility] | | | | | | HEART | | | | | | MEDICAL | | | | | | CENTER | | | | | | LABORATORY | | | | | | [place] | | + + + + + + | Creatinine | 0.77 | 0.50 - 1.00 | [facility] | [...] 88 | 65 - 99 mg/dL | [facility] | | | | | | [facility] | | | | | | HE[facility] | | | | | | MEDICAL | | | | | | CENTER | | | | | | LABORATORY | | | | | | [place] | | + + + + + + | Total | 5.5 (L) | 6.1 - 7.8 g/dL | [facility] | | | Protein | | | [facility] | | | | | | HEART | | | | | | MEDICAL | | | | | | CENTER | | | | | | LABORATORY | | | | | | [place] | | + + + + + + | Alkaline | 113 | 35 - 115 U/L | [facility] | | | Phosphatase | | | [facility] | | | | | | HEART | | | | | | MEDICAL | | | | | | CENTER | | | | | | LABORATORY | | | | | | [place] | | + + + + + + | ALT | 69 (H) | 10 - 65 U/L | [facility] | | | | | | [facility] | | | | | | HEART | | | | | | MEDICAL | | | | | | CENTER | | | | | | LABORATORY | | | | | | [place] | | + + + + + + | AST | 28 | 10 - 45 U/L | [facility] | | | | | | [facility] | | | | | | HEART | | | | | | MEDICAL | | | | | | CENTER | | | | | | LABORATORY | | | | | | [place] | | + + + + + + | Bilirubin | 0.8 | 0.2 - 1.1 mg/dL | [facility] | | | Total | | | [facility] | | | | | | HEART | | | | | | MEDICAL | | | | | | CENTER | | | | | | LABORATORY | | | | | | [place] | | + + + + + + | Estimated | 77 (L)Comment: eGFR<60 | >=90 | [facility] | | | GFR | consistent with impaired | mL/min/1.73m2 | [facility] | | | | kidney function.For | | HEART | | | | [place], | | MEDICAL | | | | multiply the calculated | | CENTER | | | | GFR by 1.210Performed by | | LABORATORY | | | | [facility] [address], | | [place] | | | | [place] [address] | | | | + + + + + + + + | Specimen | + + | Blood specimen | | (specimen) | + + + + + + + | Performing | Address | City/State/Zipcode | Phone Number | | Organization | | | | + + + + + | [facility] | [address] | [place] [address] | | | [facility] | | | | | [facility] [place] | | | | + + + + + Lipase (11/10/2018 3:31 PM PDT) + + + + + + | Component | Value | Ref Range | Performed | Pathologist | | | | | At | Signature | + + + + + + | Lipase | 137 (H)Comment: | 11 - 82 U/L | [facility] | | | | Performed by [facility] [address] | | [facility]CR[facility] | | | | [address] [place] | | HEART | | | | [address] | | MEDICAL | | | | [...] | + + + + + | [facility] | [address] | [place] [address] | | | [facility] | | | | | LABORATORY [place] | | | | + + + + + Hepatic Function Panel (11/10/2018 4:36 AM PDT) + + + +------- ------+ + | Component | Value | Ref Range | Perfor med | Pathologist | | | | | At | Signature | + + + +------- ------+ + | Albumin | 3.8 | 3.3 - 4.8 g/dL | [facility] | | | | | | [facility] | | | | | | HEART | | | | | | MEDICA L | | | | | | CENTER | | | | | | [place] | | | | | | [place] | | + + + +------- ------+ + | Total | 5.6 (L) | 6.1 - 7.8 g/dL | [facility] | | | Protein | | | [facility] | | | | | | HEART | | | | | | MEDICA L | | | | | | CENTER | | | | | | LABORA TORY | | | | | | [place] | | + + + +------- ------+ + | Alkaline | 132 (H) | 35 - 115 U/L | [facility] | | | Phosphatase | | | [facility] | | | | | | HEART | | | | | | MEDICA L | | | | | | CENTER | | | | | | LABORA TORY | | | | | | [place] | | + + + +------- ------+ + | ALT | 117 (H) | 10 - 65 U/L | [facility] | | | | | | [facility] | | | | | | HEART | | | | | | MEDICA L | | | | | | CENTER | | | | | | LABORA TORY | | | | | | [place] | | + + + +------- ------+ + | AST | 60 (H) | 10 - 45 U/L | [facility] | | | | | | [facility] | | | | | | HEART | | | | | | MEDICA L | | | | | | CENTER | | | | | | LABORA TORY | | | | | | [place] | | + + + +------- ------+ + | Bilirubin | 0.2 | 0.0 - 0.4 mg/dL | [facility] | | | Direct | | | [facility] | | | | | | HEART | | | | | | MEDICA L | | | | | | CENTER | | | | | | LABORA TORY | | | | | | [place] | | + + + +------- ------+ + | Bilirubin | 0.7Comment: Performed | 0.2 - 1.1 mg/dL | [facility] | | | Total | by [facility] [address], | | SACRED | | | | [place] [address] | | HEART | | | |Performed by [facility] [address], [place] [address] | | MEDICA L | | | [...] | + + + + + | [facility] | [address] | [place] [address] | | | HE[facility] | | | | | LABORATORY [place] | | | | + + + + + CBC with Differential (11/10/2018 4:36 AM PDT) + + + + + + | Component | Value | Ref Range | Performed | Pathologist | | | | | At | Signature | + + + + + + | WBC | 12.26 (H) | 3.80 - 11.00 | [facility] | | | | | K/uL | [facility] | | | | | | HEART | | | | | | MEDICAL | | | | | | CENTER | | | | | | LABORATORY | | | | | | [place] | | + + + + + + | RBC | 3.56 (L) | 3.70 - 5.10 | [facility] | | | | | M/uL | [facility] | | | | | | HEART | | | | | | MEDICAL | | | | | | CENTER | | | | | | LABORATORY | | | | | | [place] | | + + + + + + | Hemoglobin | 12.1 | 11.3 - 15.5 | [facility] | | | | | g/dL | [facility] | | | | | | HEART | | | | | | MEDICAL | | | | | | CENTER | | | | | | LABORATORY | | | | | | [place] | | + + + + + + | Hct | 35.6 | 34.0 - 46.0 % | [facility] | | | | | | [facility] | | | | | | HEART | | | | | | MEDICAL | | | | | | CENTER | | | | | | LABORATORY | | | | | | [place] | | + + + + + + | MCV | 100.0 | 80.0 - 100.0 fL | [facility] | | | | | | [facility] | | | | | | HEART | | | | | | MEDICAL | | | | | | CENTER | | | | | | LABORATORY | | | | | | [place] | | + + + + + + | MCH | 34.0 | 27.0 - 34.0 pg | [facility] | | | | | | [facility] | | | | | | HEART | | | | | | MEDICAL | | | | | | CENTER | | | | | | LABORATORY | | | | | | [place] | | + + + + + + | MCHC | 34.0 | 32.0 - 35.5 | [facility] | | | | | g/dL | [facility] | | | | | | HEART | | | | | | MEDICAL | | | | | | CENTER | | | | | | LABORATORY | | | | | | [place] | | + + + + + + | RDW-CV | 13.0 | 11.0 - 15.5 % | [facility] | | | | | | [facility] | | | | | | HEART | | | | | | MEDICAL | | | | | | CENTER | | | | | | LABORATORY | | | | | | [place] | | + + + + + + | Platelet | 246 | 150 - 400 K/uL | [facility] | | | Count | | | [facility] | | | | | | HEART | | | | | | MEDICAL | | | | | | CENTER | | | | | | LABORATORY | | | | | | [place] | | + + + + + + | MPV | 10.4 | 9.3 - 12.7 fL | [facility] | | | | | | [facility] | | | | | | HEART | | | | | | MEDICAL | | | | | | CENTER | | | | | | LABORATORY | | | | | | [place] | | + + + + + + | % | 85.9 (H) | 40.0 - 75.0 % | [facility] | | | Neutrophils | | | [facility] | | | | | | HEART | | | | | | MEDICAL | | | | | | CENTER | | | | | | LABORATORY | | | | | | [place] | | + + + + + + | % | 8.1 (L) | 15.0 - 48.0 % | [facility] | | | Lymphocytes | | | [facility] | | | | | | HEART | | | | | | MEDICAL | | | | | | CENTER | | | | | | LABORATORY | | | | | | [place] | | + + + + + + | % Monocytes | 5.3 | 0.0 - 12.0 % | [facility] | | | | | | [facility] | | | | | | HEART | | | | | | MEDICAL | | | | | | CENTER | | | | | | LABORATORY | | | | | | [place] | | + + + + + + | % | 0.0 | 0.0 - 7.0 % | [facility] | | | Eosinophils | | | [facility]CR[facility] | | | | | | HEART | | | | | | MEDICAL | | | | | | [facility]ENTER | | | | | | LABORATORY | | | | | | [facility] | | + + + + + + | % Basophils | 0.1 | 0.0 - 2.0 % | [facility] | | | | [facility] | | | | | | [facility] | | | | | | [facility] | | | | | | LABORATORY | | | | | | [facility] | | + + + + + + | % Immature | 0.6Comment: Immature | 0.0 - 1.0 % | [facility] | | | Granulocyte | granulocytes are | | [facility] | | | s | left-shifted | | HEART | | | | granulocytes and do not | | MEDICAL | | | | equal blasts. They are | | CENTER | | | | composed of | | LABORATORY | | | | metamyelocytes, | | [...] + + + + | Absolute | 10.53 (H) | 1.90 - 7.40 | [facility] | | | Neutrophils | | K/uL | [facility] | | | | | [facility] | | | | | | [facility] | | | | | | CENTER | | | | | | LABORATORY | | | | | | [facility] | | + + + + + + | Absolute | 0.99 (L) | 1.00 - 3.90 | [facility] | | | Lymphocytes | | K/uL | [facility] | | | | | [facility] | | | | | | [facility] | | | | | | CENTER | | | | | | LABORATORY | | | | | | [facility] | | + + + + + + | Absolute | 0.65 | 0.00 - 0.80 | [facility] | | | Monocytes | | K/uL | [facility] | | | | | | [facility] | | | | | | [facility] | | | | | | CENTER | | | | | | LABORATORY | | | | | | [facility] | | + + + + + + | Absolute | 0.00 | 0.00 - 0.50 | [facility] | | | Eosinophils | | K/uL | [facility] | | | | | | [facility] | | | | | | [facility] | | | | | | CENTER | | | | | | LABORATORY | | | | | | [facility] | | + + + + + + | Absolute | 0.01 | 0.00 - 0.10 | [facility] | | | Basophils | | K/uL | [facility] | | | | | | HEART | | | | | | MEDICAL | | | | | | CENTER | | | | | | LABORATORY | | | | | | C[facility] | | + + + + + + | Absolute | 0.07 (H) | 0.00 - 0.03 | [facility] | | | Immature | | K/uL | [facility] | | | Granulocyte | | | HEART | | | s | | | MEDICAL | | | | | | CENTER | | | | | | LABORATORY | | | | | | CERNER | | + + + + + + | Platelet | AdequateComment: | | [facility] | | | Estimate | Performed by [facility] [address] | [facility]CR[facility] | | [address], [place], [place] | | HEART | | | | [id number] | | MEDICAL | | | | [...] + + | [facility] | [address] | [place] [address] | | | [facility] | | | | | LABORATORY [facility] | | | | + + + + + Basic Metabolic Panel (11/10/2018 4:36 AM PDT) + + + + + + | Component | Value | Ref Range | Performed | Pathologist | | | | | At | Signature | + + + + + + | Na | 137 | 135 - 145 | [facility] | | | | | mmol/L | [facility] | | | | | | HEART | | | | | | MEDICAL | | | | | | CENTER | | | | | | LABORATORY | | | | | | C[facility] | | + + + + + + | K | 4.0 | 3.5 - 5.0 | [facility] | [...] 104 | 99 - 109 mmol/L | [facility] | | | | | | [facility] | | | | | | HEART | | | | | | MEDICAL | | | | | | CENTER | | | | | | LABORATORY | | | | | | C[facility]ER | | + + + + + + | CO2 | 28 | 21 - 28 mmol/L | [facility] | | | | | | [facility] | | | | | | HEART | | | | | | MEDICAL | | | | | | CENTER | | | | | | LABORATORY | | | | | | CERNER | | + + + + + + | Anion Gap | 5 | 5 - 16 mmol/L | [facility] | | | | | | [facility] | | | | | | HEART | | | | | | MEDICAL | | | | | | CENTER | | | | | | LABORATORY | | | | | | C[facility]ER | | + + + + + + | Calcium | 8.8 | 8.5 - 10.2 | [facility] | | | | | mg/dL | [facility] | | | | | | HEART | | | | | | MEDICAL | | | | | | CENTER | | | | | | LABORATORY | | | | | | C[facility] | | + + + + + + | BUN | 16 | 8 - 25 mg/dL | [facility] [...] | 0.75 | 0.50 - 1.00 | [facility] | | | | | mg/dL | [facility] | | | | | | HEART | | | | | | MEDICAL | | | | | | CENTER | | | | | | LABORATORY | | | | | | CERNER | | + + + + + + | Glucose | 112 (H) | 65 - 99 mg/dL | [facility] | | | | | | [facility] | | | | | | HEART | | | | | | MEDICAL | | | | | | CENTER | | | | | | LABORATORY | | | | | | CERNER | | + + + + + + | Estimated | 80 (L)Comment: eGFR<60 | >=90 | [facility] | | | GFR | consistent with impaired | mL/min/1.73m2 | [facility] | | | | kidney function.For | | HEART | | | | Americans, | | MEDICAL | | | | multiply the calculated | | CENTER | | | | GFR by 1.210Performed by | | LABORATORY | | | | [facility] [address], | | CERNER | | | | [place] [address] | | | | + + + + + + + + | Specimen | + + | Blood specimen | | (specimen) | + + + + + + + | Performing | Address | City/State/Zipcode | Phone Number | | Organization | | | | + + + + + | [facility] | [address] | [place] [address] | | | [facility] | | | | | LABORATORY [facility] | | | | + + + + + Comprehensive Metabolic Panel (11/09/2018 8:16 PM PDT) + + + + + + | Component | Value | Ref Range | Performed | Pathologist | | | | | At | Signature | + + + + + + | Na | 141 | 135 - 145 | [facility] | | | | | mmol/L | [facility] | | | | | | HEART | | | | | | MEDICAL | | | | | | CENTER | | | | | | LABORATORY | | | | | | CERNER | | + + + + + + | K | 3.8 | 3.5 - 5.0 | [facility] | | | | | mmol/L | [facility] | | | | | | HEART | | | | | | MEDICAL | | | | | | CENTER | | | | | | LABORATORY | | | | | | C[facility] | | + + + + + + | Cl | 107 | 99 - 109 mmol/L | [facility] | | | | | | [facility] | | | | | | HEART | | | | | | MEDICAL | | | | | | CENTER | | | | | | LABORATORY | | | | | | CERNER | | + + + + + + | CO2 | 24 | 21 - 28 mmol/L | [facility] | | | | | | [facility] | | | | | | HEART | | | | | | MEDICAL | | | | | | CENTER | | | | | | LABORATORY | | | | | | C[facility]ER | | + + + + + + | Calcium | 9.4 | 8.5 - 10.2 | [facility] | [...] + + + + | Albumin | 4.0 | 3.3 - 4.8 g/dL | [facility] | | | | | | [facility] | | | | | | HEART | | | | | | MEDICAL | | | | | | CENTER | | | | | | LABORATORY | | | | | | CERNER | | + + + + + + | BUN | 10 | 8 - 25 mg/dL | [facility] | | | | | | [facility] | | | | | | HEART | | | | | | MEDICAL | | | | | | CENTER | | | | | | LABORATORY | | | | | | C[facility]ER | | + + + + + + | Creatinine | 0.74 | 0.50 - 1.00 | [facility] | | | | | mg/dL | [facility] | | | | | | HEART | | | | | | MEDICAL | | | | | | CENTER | | | | | | LABORATORY | | | | | | CERNER | | + + + + + + | Glucose | 102 (H) | 65 - 99 mg/dL | [facility] | | | | | | [facility] | | | | | | HEART | | | | | | MEDICAL | | | | | | CENTER | | | | | | LABORATORY | | | | | | [facility] | | + + + + + + | Total | 6.1 | 6.1 - 7.8 g/dL | [facility] | | | Protein | | | [facility] | | | | | | HEART | | | | | | MEDICAL | | | | | | CENTER | | | | | | LABORATORY | | | | | | CERNER | | + + + + + + | Alkaline | 160 (H) | 35 - 115 U/L | [facility] | | | Phosphatase | | | [facility] | | | | | | HEART | | | | | | MEDICAL | | | | | | CENTER | | | | | | LABORATORY | | | | | | CERNER | | + + + + + + | ALT | 169 (H) | 10 - 65 U/L | [facility] | | | | | | [facility] | | | | | | HEART | | | | | | MEDICAL | | | | | | CENTER | | | | | | LABORATORY | | | | | | CERN[facility] | | + + + + + + | AST | 157 (H) | 10 - 45 U/L | [facility] | | | | | | [facility] | | | | | | HEART | | | | | | MEDICAL | | | | | | CENTER | | | | | | LABORATORY | | | | | | CERN[facility] | | + + + + + + | Bilirubin | 0.5 | 0.2 - 1.1 mg/dL | [facility] | | | Total | | | [facility] | | | | | | HEART | | | | | | MEDICAL | | | | | | CENTER | | | | | | LABORATORY | | | | | | CERNER | | + + + + + + | Estimated | 81 (L)Comment: eGFR<60 | >=90 | [facility] | | | GFR | consistent with impaired | mL/min/1.73m2 | [facility]ED | | | | kidney function.For | | HEART | | | | Americans, | | MEDICAL | | | | multiply the calculated | | CENTER | | | | GFR by 1.210Performed by | | LABORATORY | | | | [facility] [address], | | C[facility] | | | | [place] [address] | | | | + + + + + + + + | Specimen | + + | Blood specimen | | (specimen) | + + + + + + + | Performing | Address | City/State/Zipcode | Phone Number | | Organization | | | | + + + + + | [facility] | [address] | [place] [address] | | | [facility] | | | | | LABORATORY [facility] | | | | + + + + + CBC with Differential (11/09/2018 8:16 PM PDT) + + + + + + | Component | Value | Ref Range | Performed | Pathologist | | | | | At | Signature | + + + + + + | WBC | 19.63 (H) | 3.80 - 11.00 | [facility] | | | | | K/uL | [facility] | | | | | | HEART | | | | | | MEDICAL | | | | | | CENTER | | | | | | LABORATORY | | | | | | C[facility] | | + + + + + + | RBC | 3.88 | 3.70 - 5.10 | [facility] | | | | | M/uL | SACR[facility] | | | | | | HEART | | | | | | MEDICAL | | | | | | CENTER | | | | | | LABORATORY | | | | | | C[facility]ER | | + + + + + + | Hemoglobin | 13.2 | 11.3 - 15.5 | [facility] | | | | | g/dL | [facility]CR[facility] | | | | | | HEART | | | | | | MEDICAL | | | | | | CENTER | | | | | | LABORATORY | | | | | | C[facility]ER | | + + + + + + | Hct | 37.5 | 34.0 - 46.0 % | [facility] | | | | | | [facility]CR[facility] | | | | | | HEART | | | | | | MEDICAL | | | | | | CENTER | | | | | | LABORATORY | | | | | | CERNER | | + + + + + + | MCV | 96.6 | 80.0 - 100.0 fL | [facility] | | | | | | SACR[facility] | | | | | | HEART | | | | | | MEDICAL | | | | | | CENTER | | | | | | LABORATORY | | | | | | CERNER | | + + + + + + | MCH | 34.0 | 27.0 - 34.0 pg | [facility] | | | | | | [facility]CR[facility] | | | | | | HEART | | | | | | MEDICAL | | | | | | CENTER | | | | | | LABORATORY | | | | | | CERNER | | + + + + + + | MCHC | 35.2 | 32.0 - 35.5 | [facility] | | | | | g/dL | SACR[facility] | | | | | | HEART | | | | | | MEDICAL | | | | | | CENTER | | | | | | LABORATORY | | | | | | CERNER | | + + + + + + | RDW-CV | 12.9 | 11.0 - 15.5 % | [facility] | | | | | | [facility]CR[facility] | | | | | | HEART | | | | | | MEDICAL | | | | | | CENTER | | | | | | LABORATORY | | | | | | CERNER | | + + + + + + | Platelet | 271 | 150 - 400 K/uL | [facility] | | | Count | | | SACRED | | | | | | HEART | | | | | | MEDICAL | | | | | | CENTER | | | | | | LABORATORY | | | | | | CERNER | | + + + + + + | MPV | 10.5 | 9.3 - 12.7 fL | [facility] | | | | | | SACR[facility] | | | | | | HEART | | | | | | MEDICAL | | | | | | CENTER | | | | | | LABORATORY | | | | | | CERNER | | + + + + + + | % | 92.7 (H) | 40.0 - 75.0 % | [facility] | | | Neutrophils | | | SACRED | | | | | | HEART | | | | | | MEDICAL | | | | | | CENTER | | | | | | LABORATORY | | | | | | CERNER | | + + + + + + | % | 4.7 (L) | 15.0 - 48.0 % | [facility] | | | Lymphocytes | | | SACRED | | | | | | HEART | | | | | | MEDICAL | | | | | | CENTER | | | | | | LABORATORY | | | | | | CERNER | | + + + + + + | % Monocytes | 1.9 | 0.0 - 12.0 % | [facility] | | | | | | SACRED | | | | | | HEART | | | | | | MEDICAL | | | | | | CENTER | | | | | | LABORATORY | | | | | | C[facility]ER | | + + + + + + | % | 0.0 | 0.0 - 7.0 % | [facility] | | | Eosinophils | | | SACRED | | | | | | HEART | | | | | | MEDICAL | | | | | | CENTER | | | | | | LABORATORY | | | | | | CERNER | | + + + + + + | % Basophils | 0.2 | 0.0 - 2.0 % | [facility] | | | | | | [facility]CR[facility] | | | | | | HEART | | | | | | MEDICAL | | | | | | CENTER | | | | | | LABORATORY | | | | | | CERNER | | + + + + + + | % Immature | 0.5Comment: Immature | 0.0 - 1.0 % | [facility] | | | Granulocyte | granulocytes are | | SACRED | | | s | left-shifted | | HEART | | | | granulocytes and do not | | MEDICAL | | | | equal blasts. They are | | CENTER | | | | composed of | | LABORATORY | | | | metamyelocytes, | | [...] + + + + | Absolute | 18.20 (H) | 1.90 - 7.40 | [facility] | | | Neutrophils | | K/uL | SACRED | | | | | | HEART | | | | | | MEDICAL | | | | | | CENTER | | | | | | LABORATORY | | | | | | CERNER | | + + + + + + | Absolute | 0.92 (L) | 1.00 - 3.90 | [facility] | | | Lymphocytes | | K/uL | SACRED | | | | | | HEART | | | | | | MEDICAL | | | | | | CENTER | | | | | | LABORATORY | | | | | | CERNER | | + + + + + + | Absolute | 0.37 | 0.00 - 0.80 | [facility] | | | Monocytes | | K/uL | SACRED | | | | | | HEART | | | | | | MEDICAL | | | | | | CENTER | | | | | | LABORATORY | | | | | | C[facility] | | + + + + + + | Absolute | 0.00 | 0.00 - 0.50 | [facility] | | | Eosinophils | | K/uL | SACRED | | | | | | HEART | | | | | | MEDICAL | | | | | | CENTER | | | | | | LABORATORY | | | | | | CERNER | | + + + + + + | Absolute | 0.04 | 0.00 - 0.10 | [facility] | | | Basophils | | K/uL | SACRED | | | | | | HEART | | | | | | MEDICAL | | | | | | CENTER | | | | | | LABORATORY | | | | | | CERNER | | + + + + + + | Absolute | 0.10 (H)Comment: | 0.00 - 0.03 | [facility] | | | Immature | Performed by [facility] [address] | K/uL | SACRED | | | Granulocyte | [address] [place], [place] | | HEART | | | s | [id number] | | MEDICAL | | | | [...] | + + + + + | [facility] | [address] | [place] [address] | | | [facility] | | | | | [place] [place] | | | | + + + + + [place] ERCP Biliary Only (11/09/2018 5:18 PM PDT) + + | Specimen | + + | | + + + + + | Impressions | Performed At | + + + | IMPRESSION: ERCP with fluoroscopic cholangiogram. | [facility] | | Signed by: Stanislav Fajardo Jade Sign Date/Time: 11/10/2018 9:49 AM | | + + + + + + | Narrative | Performed At | + + + | ERCP COMBINED CLINICAL INFORMATION: Calculus of bile duct | [facility] | | with cholangitis and obstruction, unspecified cholangitis acuity. | | | COMPARISON: MRI ABDOMEN W WO CONTRAST MRCP (11/02/2018); | | | FINDINGS: ERCP with intraoperative biliary cholangiogram with | | | cholangioscopy, sphincterotomy, stone removal and stent placement. | | | Geographic Information Systems Engineer Dr. Thompson. Fluoro Time: 24 minute(s)41 seconds. | | | Number of images: 33 Air Kerma: 283.98 mGy | | + + + + + | Procedure Note | + + | Dex, Jamie Results In - 11/10/2018 9:53 AM PDT | | ERCP COMBINED | | | | CLINICAL INFORMATION: | | Calculus of bile duct with cholangitis and obstruction, unspecified | | cholangitis acuity. | | | | COMPARISON: | | MRI ABDOMEN W WO CONTRAST MRCP (11/02/2018); | | | | FINDINGS: | | ERCP with intraoperative biliary cholangiogram with cholangioscopy, | | sphincterotomy, stone removal and stent placement. Geographic Information Systems Engineer | | Jay. | | | | Fluoro Time: 24 minute(s)41 seconds. Number of images: 33 Air | | Kerma: 283.98 mGy | | | | IMPRESSION: | | IMPRESSION: | | ERCP with fluoroscopic cholangiogram. | | | | | | | | | | Signed by: Stanislav Fajardo Jade | | Sign Date/Time: 11/10/2018 9:49 AM | + + + +---------+ + + | Performing | Address | City/State/Zipcode | Phone Number | | Organization | | | | + +---------+ + + | [facility] | | | | + +---------+ + + ERCP (11/09/2018 1:37 PM PDT) + + | Specimen | + + | | + + + + + | Narrative | Performed At | + + + | [facility] | [facility] | | [facility] | [facility] | | [facility] | | | Patient Name: Sharon Way Ann Procedure | | | Date: 11/09/2018 1:37 PMMRN: [id number] | | | of : 1945 | | | Note Status: FinalizedAttending MD: RASHI THOMPSON MD | | | | | | Procedure Type: ERCPIndications: | | | Common bile duct stone(s)Patient Profile: Mrs Way is a | | | 73 y/o/f with choledocholithiasis s/p | | | cholecystectomy 40 years ago.Referring: FABRICE Jackson | | | PHU AMOSedicines: General | | | AnesthesiaComplications: No immediate [...] | | Anticoagulants: The patient has taken no previous anticoagulant or | | | antiplatelet agents. ASA Grade Assessment: II - A patient with | | | mild systemic disease. After reviewing the risks and benefits, | | | the patient was deemed in satisfactory condition to undergo the | | | procedure. After informed consent was obtained including risks, | | | benefits and alternatives, the scope was passed under direct | | | vision. Throughout the procedure, the patient's blood pressure, | | | pulse, and oxygen saturations were monitored continuously. The | | | Duodenoscope was introduced through the mouth, and advanced to | | | the duodenum and used to inject contrast into the bile duct. | | | The ERCP was accomplished without difficulty. The patient | | | tolerated the procedure well. | | | | | | Findings: The inspector tool film was normal. Hughes ampulla was | | | noted in the second portion of the duodenum. 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 The area around the fistula seemed | | | bulbous, likely due to the pooling of biliary stones in the | | | distal CBD, and the dilation of distal CBD. Biliary cannulation | | | through the ampulla was achieved using a 0.035 in guidewire | | | and 4.4 mm sphincterotome. Fluoroscopy was done with contrast | | | injection and I noted multiple large filling defects in the CBD | | | with dilated left intrahepatic ducts with evidence of a stricture. | | | Clips were noted over the cholecystectomy site. A | | | sphincterotomy was done and using a 9-12 mm extraction balloon | | | large stone was extracted initially but we noted impaction of | | | the stones at the choledochoduodenal fistula. A flower basket | | | was used to then grasp a large 12 mm stone and extracted from | | | the bile duct. Subsequent balloon sweeps cleared large number | | | (around 15-18)medium and large biliary stones and resulted in the | | | extension of the sphincterotomy into the fistula. The 9-12 balloon | | | was inflated near the opening and contrast was injected to | | | evaluate for retroperitoneal leak and the evaluation was | | | negative hence no evidence of perforation. The spyglass | | | the S2 was used for cholangioscopy and under visualization the | | | common bile duct. Very distal examination of the CBD reveealed a | | | dilated duct and there seemed to be another lumen or mouth of a | | | diverticulum distally, to the left. A complete exam of the right | | | anterior, right posterior ducts were completed with no evidence | | | of intrahepatic biliary duct stones. I attempted to find the | | | stricture leading to the left intrahepatic ducts however this | | | was not successful even after evaluating a number of large and | | | medium sized ducts. I believe the stricture is significant | | | enough that it does not appear as a lumen when viewed on | | | cholangioscopy. After clearing the ducts wire-guided | | | cannulation of the left intrahepatic duct was attempted using a | | | 0.035 in angled Visiglide and Revolution wires. Using the | | | Visiglide, we were able to cannulate the Left IHD duct and able to | | | dilate the stricture using the 4 mm Hurricane balloon but | | | ultimately were not successful to reaquire the left IHD after | | | loosing the wire. After multiple tries, an occlusion | | | cholangiogram was finally done and no filling defects were | | | noted in the common bile duct with the predominance of the left | | | intrahepatic duct stricture noted during the final | | | cholangiogram during this time as the balloon swept towards the | | | ampulla contrast was seen to spill into the pancreatic duct | | | which eventually drained. Due to the anatomy of the pancreatic | | | duct and angled wire was initially attempted once to try to | | | cannulate the PD but unsuccessful. At this point it was felt | | | that further manipulation of the pancreatic duct would increase | | | the chances of post ERCP pancreatitis and a PD stent was not | | | placed. Finally a 10 [place] Islander 7cm plastic biliary stent was placed in | | | the CBD which led to adequate drainage of the CBD. The total | | | fluoroscopy exposure time was more than 20 minutes. I evaluated | | | and interpreted all fluroscopic images during the ERCP. 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 Biliary stones | | | were removal was accomplished by cholangioscopy, biliary | | | sphincterotomy and balloon extraction. A 10 [place] Islander 7 cm biliary | | | stent was placed through the common bile duct. 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 | | | | | | Recommendation: - Admit patient for post procedure evaluation - | | | prolonged, complicated procedure - LR 100 cc / hr - | | | CLD if tolerated - CBC CMP - Pain control and anti-nausea | | | medications - Post ERCP check tomorrow - Will plan for | | | repeat ERCP in 6-8 weeks to evaluate the left IHD stricture | | | - MRCP and labs prior to ERCP | | | | | | RASHI THOMPSON MD11/09/2018 5:46:27 PMThis | | | report has been signed electronically. Note Initiated On: 11/09/2018 | | | 1:37 PMNumber of Addenda: 0 [facility] | | | Center - Endoscopy Services | | |RASHI THOMPSON MD | | |11/09/2018 5:46:27 PM | | |This report has been signed electronically. | | | | | |Note Initiated On: 11/09/2018 1:37 PM | | |Number of Addenda: 0 | | | | | | [facility] - [facility]oscopy Services | | + + + + +---------+ + + | Performing | Address | City/State/Zipcode | Phone Number | | Organization | | | | + +---------+ + + | [place] [facility] | | | | + +---------+ + + ECG 12 lead (11/09/2018 11:40 AM PDT) + + | Specimen | + + | | + + + + + | Narrative | Performed At | + + + | HEART RATE:55 | [facility] | | bpmRR Interval:1091 msAtrial Rate:55 msP-R Interval:160 msP | [facility] | | Duration:164 msP Horizontal Elba:30 degP Front Elba:17 degQ Onset:504 | | | msQRSD Interval:92 msQT Interval:448 msQTcB:429 msQTcF:435 msQRS | | | Horizontal Elba:-54 degQRS Elba:-34 degI-40 Horizontal Elba:-1 degI-40 | | | Front Elba:-33 degT-40 Horizontal Elba:-70 degT-40 Front Elba:-41 | | | degT Horizontal Elba:254 degT Wave Elba:-20 degS-T Horizontal Elba:129 | | | degS-T Front Elba:140 degSeverity:- ABNORMAL ECG -INTERP:SINUS | | | BRADYCARDIAINTERP:VENTRICULAR TRIGEMINYINTERP:LEFT AXIS | | | DEVIATIONINTERP:NONSPECIFIC T ABNORMALITIES, ANTERIOR | | | LEADSElectronically signed by: BIBI RAGLAND 11-09-2018 12:40:55 | | |QTcF:435 ms | | |QRS Horizontal Elba:-54 deg | | |QRS Elba:-34 deg | | |I-40 Horizontal Elba:-1 deg | | |I-40 Front Elba:-33 deg | | |T-40 Horizontal Elba:-70 deg | | |T-40 Front Elba:-41 deg | | |T Horizontal Elba:254 deg | | |T Wave Elba:-20 deg | | |S-T Horizontal Elba:129 deg | | |S-T Front Elba:140 deg | | |Severity:- ABNORMAL ECG - | | |INTERP:SINUS BRADYCARDIA | | |INTERP:VENTRICULAR TRIGEMINY | | |INTERP:LEFT AXIS DEVIATION | | |INTERP:NONSPECIFIC T ABNORMALITIES, ANTERIOR LEADS | | |Electronically signed by: BIBI RAGLAND 11-09-2018 12:40:55 | | + + + + + + + + | Performing | Address | City/State/Zipcode | Phone Number | | Organization | | | | + + + + + | [facility] | [address] | [place] [address] | [phone] | + + + + + POC Glucose (11/09/2018 11:31 AM PDT) + + + + --+ + | Component | Value | Ref Range | Performed | Pathologist | | | | | At | Signature | + + + + --+ + | Glucose, | 89Comment: Performed by | 65 - 99 mg/dL | [facility] | | | POC | [facility] [address], | | SACRED | | | | [place] [address] | | HEART | | | |Performed by [facility] [address], [place] [address] | | MEDICAL | | | | [...] | + + + + + | [facility] | [address] | [place] [address] | | | [facility] | | | | | LABORATORY [facility] | | | | + + + + + documented in this encounter Visit Diagnoses + + | Diagnosis | + + | Calculus of bile duct with cholangitis and obstruction, unspecified cholangitis acuity | + + documented in this encounter Admitting Diagnoses + + | Diagnosis | + + | Calculus of bile duct with cholangitis and obstruction, unspecified cholangitis acuity | + + documented in this encounter Administered Medications + +--------+ +--------+------+------+ | Medication Order | MAR | Action | Dose | Rate | Site | | | Action | Date | | | | + +--------+ +--------+------+------+ | acetaminophen (TYLENOL) tablet | Given | 11/11/19 | 500 mg | | | | 500 mg 500 mg, Oral, EVERY 6 | | 19 1:23 | | | | | HOURS PRN, Pain, Starting Tue | | AM PDT | | | | | 11/09/18 at 1745 | | | | | | + +--------+ +--------+------+------+ +---+---+ | | | +---+---+ + +-------+ +--------+---+---+ | aluminum & magnesium | Given | 11/11/19 | 45 mLs | | | | hydroxide-simethicone (MAALOX | | 19 6:45 | | | | | PLUS REGULAR STRENGTH) 200-200-20 | | PM PDT | | | | | mg/5 mL 30 mL, lidocaine | | | | | | | (XYLOCAINE) 2% 15 mL liquid 45 | | | | | | | mL, Oral, ONCE, 11/10/18 at | | | | | | | 1700, For 1 dose, Mix Maalox Plus | | | | | | | 30 ml, Lidocaine viscous 2% 15 | | | | | | | ml to make standard mixture., | | | | | | + +-------+ +--------+---+---+ +---+---+ | | | +---+---+ + +-------+ +-------+---+---+ | aspirin chewable tablet 81 mg | Given | 11/12/19 | 81 mg | | | | 81 mg, Oral, DAILY WITH | | 19 8:13 | | | | | BREAKFAST, First dose (after last | | AM PDT | | | | | reorder) on Thu11/09/18 at 1930 | | | | | | + +-------+ +-------+---+---+ +-------+ +-------+---+---+ | Given | 11/11/19 | 81 mg | | | | | 19 9:02 | | | | | | AM PDT | | | | +-------+ +-------+---+---+ +---+---+ | | | +---+---+ + +-------+ +-------+---+---+ | atorvaSTATin (LIPITOR) tablet | Given | 11/12/19 | 40 mg | | | | 40 mg 40 mg, Oral, DAILY, First | | 19 8:13 | | | | | dose (after last reorder) on Thu | | AM PDT | | | | | 11/09/18 at 1930 | | | | | | + +-------+ +-------+---+---+ +-------+ +-------+---+---+ | Given | 11/11/19 | 40 mg | | | | | 19 9:03 | | | | | | AM PDT | | | | +-------+ +-------+---+---+ +---+---+ | | | +---+---+ + +-------+ +--------+---+---+ | ciprofloxacin (CIPRO) tablet | Given | 11/10/19 | 500 mg | | | | 500 mg 500 mg, Oral, NIGHTLY, | | 19 8:58 | | | | | First dose on Thu11/09/18 at | | PM PDT | | | | | 2100, For 5 days, Give 2 hours | | | | | | | before or 6 hours after antacids, | | | | | | | dairy, calcium, iron, or zinc., | | | | | | | Indications: Biliary Tract | | | | | | | Infection | | | | | | + +-------+ +--------+---+---+ +---+---+ | | | +---+---+ + +-------+ +--------+---+---+ | ciprofloxacin (CIPRO) tablet | Given | 11/12/19 | 500 mg | | | | 500 mg 500 mg, Oral, 2 TIMES | | 19 8:14 | | | | | DAILY, First dose (after last | | AM PDT | | | | | modification) on Thu11/10/18 at | | | | | | | 2100, For 8 doses, Give 2 hours | | | | | | | before or 6 hours after antacids, | | | | | | | dairy, calcium, iron, or zinc. | | | | | | | Renally dosed per P&T approval., | | | | | | | Indications: Biliary Tract | | | | | | | Infection | | | | | | + +-------+ +--------+---+---+ +-------+ +--------+---+---+ | Given | 11/11/19 | 500 mg | | | | | 19 8:25 | | | | | | PM PDT | | | | +-------+ +--------+---+---+ +---+---+ | | | +---+---+ + +-------+ +--------+---+---+ | fentaNYL (PF) injection 25-50 | Given | 11/10/19 | 50 mcg | | | | mcg 25-50 mcg, Intravenous, | | 19 6:03 | | | | | EVERY 5 MIN PRN, Pain, Initial | | PM PDT | | | | | postop urgent pain or escalating | | | | | | | pain, Starting 11/09/18 at | | | | | | | 1751, For 4 doses, Every 5 | | | | | | | minutes PRN for initial postop | | | | | | | urgent pain or escalating pain up | | | | | | | to 2 doses maximum. If patient | | | | | | | meets opioid tolerant definition, | | | | | | | can give up to 4 doses maximum. | | | | | | | First dose must be lowest dose. | | | | | | | Use Pasero Sedation Scale. | | | | | | | [Opioid tolerant = One week or | | | | | | | longer, wedenl-kwa-oklbc use of | | | | | [...] +--------+---+---+ | HYDROmorphone (DILAUDID) | Given | 11/11/19 | 0.2 mg | | | | injection 0.2 mg 0.2 mg, | | 19 1:17 | | | | | Intravenous, EVERY 3 HOURS PRN, | | PM PDT | | | | | Pain, Starting 11/09/18 at | | | | | | | 1913, For 2 days, Post-op/Phase | | | | | | | II | | | | | | + +-------+ +--------+---+---+ +-------+ +--------+---+---+ | Given | 11/10/19 | 0.2 mg | | | | | 19 10:36 | | | | | | PM PDT | | | | +-------+ +--------+---+---+ | Given | 11/10/19 | 0.2 mg | | | | | 19 7:36 | | | | | | PM PDT | | | | +-------+ +--------+---+---+ + +---+ | | | + +---+ | HYDROmorphone (DILAUDID) | | | injection 0.4-0.8 mg 0.4-0.8 mg, | | | Intravenous, EVERY 3 HOURS PRN, | | | Pain, Starting 11/10/18 at | | | 1326, For 29 hours, Post-op/Phase | | | II | | + +---+ | | | + +---+ + +-------+ +-------+---+---+ | indomethacin (INDOCIN) | Given | 11/10/19 | 25 mg | | | | suppository PRN, Starting Thu | | 19 1:49 | | | | | 11/09/18 at 1349 | | PM PDT | | | | + +-------+ +-------+---+---+ +---+---+ | | | +---+---+ + +---------+ +---+-------+---+ | lactated ringers (LR) infusion | New Bag | 11/10/19 | | 100 | | | at 100 mL/hr, Intravenous, | | 19 11:37 | | mL/hr | | | CONTINUOUS, Starting 11/09/18 | | AM PDT | | | | | at 1200, Pre-op | | | | | | + +---------+ +---+-------+---+ +---+---+ | | | +---+---+ + +---------+ +--------+ +---+ | lactated ringers (LR) infusion | New Bag | 11/12/19 | 1,000 | 30 mL/hr | | | at 30 mL/hr, Intravenous, | | 19 12:51 | mLs | | | | CONTINUOUS, Starting 11/09/18 | | PM PDT | | | | | at 1930, Post-op/Phase II | | | | | | + +---------+ +--------+ +---+ + + +---+ +---+ | Rate/Dose Change | 11/12/19 | | 30 mL/hr | | | | 19 12:50 | | | | | | PM PDT | | | | + + +---+ +---+ | New Bag | 11/12/19 | | 150 | | | | 19 6:40 | | mL/hr | | | | AM PDT | | | | + + +---+ +---+ +---+---+ | | | +---+---+ + +-------+ +--------+---+---+ | levothyroxine (SYNTHROID) | Given | 11/11/19 | 50 mcg | | | | tablet 50 mcg 50 mcg, Oral, | | 19 9:03 | | | | | DAILY, First dose (after last | | AM PDT | | | | | reorder) on Thu11/09/18 at 1930, | | | | | | | Give before breakfast., | | | | | | + +-------+ +--------+---+---+ +---+---+ | | | +---+---+ + +-------+ +--------+---+---+ | levothyroxine (SYNTHROID) | Given | 11/12/19 | 50 mcg | | | | tablet 50 mcg 50 mcg, Oral, | | 19 6:39 | | | | | DAILY BEFORE BREAKFAST, First | | AM PDT | | | | | dose (after last modification) on | | | | | | | [facility] 11/11/18 at 0730, Give before | | | | | | | breakfast., | | | | | | + +-------+ +--------+---+---+ +---+---+ | | | +---+---+ + +-------+ +-------+---+---+ | lisinopril (PRINIVIL, ZESTRIL) | Given | 11/11/19 | 10 mg | | | | tablet 10 mg 10 mg, Oral, DAILY, | | 19 9:02 | | | | | First dose (after last reorder) | | AM PDT | | | | | on 11/09/18 at 1930 | | | | | | + +-------+ +-------+---+---+ +---+---+ | | | +---+---+ + +-------+ +-------+---+---+ | metoprolol succinate | Given | 11/11/19 | 25 mg | | | | (TOPROL-XL) ER tablet 25 mg 25 | | 19 8:25 | | | | | mg, Oral, NIGHTLY, First dose | | PM PDT | | | | | (after last reorder) on Thu | | | | | | | 11/09/18 at 2100, Tablet may be | | | | | | | cut where scored but do not | | | | | | | crush., | | | | | | + +-------+ +-------+---+---+ +-------+ +-------+---+---+ | Given | 11/10/19 | 25 mg | | | | | 19 8:58 | | | | | | PM PDT | | | | +-------+ +-------+---+---+ +---+---+ | | | +---+---+ + +-------+ +--------+---+---+ | metroNIDAZOLE (FLAGYL) tablet | Given | 11/11/19 | 250 mg | | | | 250 mg 250 mg, Oral, 2 TIMES | | 19 9:03 | | | | | DAILY, First dose on Thu11/09/18 | | AM PDT | | | | | at 2100, For 5 days, Indications: | | | | | | | Bacteremia | | | | | | + +-------+ +--------+---+---+ +-------+ +--------+---+---+ | Given | 11/10/19 | 250 mg | | | | | 19 9:52 | | | | | | PM PDT | | | | +-------+ +--------+---+---+ +---+---+ | | | +---+---+ + +-------+ +--------+---+---+ | metroNIDAZOLE (FLAGYL) tablet | Given | 11/12/19 | 250 mg | | | | 250 mg 250 mg, Oral, 3 TIMES | | 19 2:33 | | | | | DAILY, First dose (after last | | PM PDT | | | | | modification) on Thu11/10/18 at | | | | | | | 2100, For 12 doses, Renally dosed | | | | | | | per P&T approval., Indications: | | | | | | | Bacteremia | | | | | | + +-------+ +--------+---+---+ +-------+ +--------+---+---+ | Given | 11/12/19 | 250 mg | | | | | 19 8:14 | | | | | | AM PDT | | | | +-------+ +--------+---+---+ | Given | 11/11/19 | 250 mg | | | | | 19 8:25 | | | | | | PM PDT | | | | +-------+ +--------+---+---+ +---+---+ | | | +---+---+ + +---------+ +---------+---+ + | nicotine (NICODERM) 14 mg/24 hr | Patch | 11/12/19 | 1 patch | | Deltoid- | | 1 patch 1 patch, Transdermal, | Applied | 19 8:13 | | | Right | | DAILY, First dose on Thu11/10/18 | | AM PDT | | | | | at 1700 | | | | | | + +---------+ +---------+---+ + + + +---------+---+ + | Patch Applied | 11/11/19 | 1 patch | | Arm-Left | | | 19 5:00 | | | Upper | | | PM PDT | | | | + + +---------+---+ + +---+---+ | | | +---+---+ + +-------+ +------+---+---+ | ondansetron (ZOFRAN) injection | Given | 11/10/19 | 4 mg | | | | 4 mg 4 mg, Intravenous, ONCE | | 19 5:54 | | | | | PRN, Nausea, Starting Thu11/09/18 | | PM PDT | | | | | at 1751, For 1 dose, | | | | | | | Recovery/Phase I | | | | | | + +-------+ +------+---+---+ +---+---+ | | | +---+---+ + +-------+ +------+---+---+ | ondansetron (ZOFRAN) injection | Given | 11/11/19 | 4 mg | | | | 4 mg 4 mg, Intravenous, EVERY 6 | | 19 12:08 | | | | | HOURS (4 times per day), First | | PM PDT | | | | | dose on Thu11/09/18 at 1930, For | | | | | | | 4 doses, Post-op/Phase II | | | | | | + +-------+ +------+---+---+ +-------+ +------+---+---+ | Given | 11/11/19 | 4 mg | | | | | 19 5:52 | | | | | | AM PDT | | | | +-------+ +------+---+---+ | Given | 11/11/19 | 4 mg | | | | | 19 12:52 | | | | | | AM PDT | | | | +-------+ +------+---+---+ +---+---+ | | | +---+---+ + +-------+ +-------+---+---+ | pantoprazole (PROTONIX) DR | Given | 11/12/19 | 40 mg | | | | tablet 40 mg 40 mg, Oral, DAILY, | | 19 10:25 | | | | | First dose (after last reorder) | | AM PDT | | | | | on e 11/09/18 at 1930, Do not | | | | | | | cut or crush., Indication: GERD | | | | | | + +-------+ +-------+---+---+ +-------+ +-------+---+---+ | Given | 11/11/19 | 40 mg | | | | | 19 9:03 | | | | | | AM PDT | | | | +-------+ +-------+---+---+ +---+---+ | | | +---+---+ + +-------+ +-------+---+---+ | pantoprazole (PROTONIX) | Given | 11/11/19 | 40 mg | | | | injection 40 mg 40 mg, | | 19 4:20 | | | | | Intravenous, ONCE, 11/10/18 at | | PM PDT | | | | | 1630, For 1 dose, Indication: | | | | | | | GERD | | | | | | + +-------+ +-------+---+---+ +---+---+ | | | +---+---+ + +-------+ +---------+---+---+ | probiotic capsule 1 capsule 1 | Given | 11/12/19 | 1 | | | | capsule, Oral, 2 TIMES DAILY WITH | | 19 12:49 | capsule | | | | BREAKFAST & DINNER, First dose | | PM PDT | | | | | on [place] 11/11/18 at 1100, | | | | | | | Equivalent to VSL#3 capsule. DO | | | | | | | NOT OPEN OR CRUSH. Opening | | | | | | | capsules increases the risk of | | | | | | | aerosolization of the probiotics | | | | | | | bacteria and contamination of the | | | | | | | surrounding environment. Do not | | | | | | | open or crush., | | | | | | + +-------+ +---------+---+---+ +---+---+ | | | +---+---+ + +-------+ +-------+---+---+ | prochlorperazine (COMPAZINE) | Given | 11/11/19 | 10 mg | | | | injection 10 mg 10 mg, | | 19 2:16 | | | | | Intravenous, EVERY 6 HOURS PRN, | | PM PDT | | | | | Nausea, Vomiting, Starting Wed | | | | | | | 11/10/18 at 1339 | | | | | | + +-------+ +-------+---+---+ +---+---+ | | | +---+---+ + +-------+ +-------+---+---+ | venlafaxine (EFFEXOR) tablet 75 | Given | 11/12/19 | 75 mg | | | | mg 75 mg, Oral, DAILY, First | | 19 8:13 | | | | | dose (after last reorder) on Tue | | AM PDT | | | | | 11/09/18 at 1930 | | | | | | + +-------+ +-------+---+---+ +-------+ +-------+---+---+ | Given | 11/11/19 | 75 mg | | | | | 19 9:03 | | | | | | AM PDT | | | | +-------+ +-------+---+---+ +---+---+ | | | +---+---+ documented in this encounter
--- OUTSIDE RECORDS SUMMARY | ~2019-06-30 | XMS | Encounter Summary ---
Demographics + + + | Address | [address] | | | [place] [address] | + + + | Home Phone | | + + + | Preferred Language | Unknown | + + + | Marital Status | | + + + | Alevism Affiliation | 1041 | + + + | Race | Unknown | + + + | Ethnic Group | Unknown | + + + Author + + + | Author | [facility] | | | and Luisana | + + + | Organization | [facility] | | [...] Team Providers + +------+ + | Care [employer] Teacher Name | Role | Phone | [...] | Epigastric | Fabrice | Meme Naik TECHNICAL PRODUCER | | | Required | | pain | Edjeremias DO | [address] | | | | | Dysphagia, | [address] | | | | | unspecified | [address] | [place], [place] | | | | | type | [address] | [address] Phone: | | | | | | [place], [place] | [phone] | | | | | | [address] | Fax: | | | | | | Phone: | [phone] | | | | | | [phone] | | | | | | | Fax: | | | | | | | [phone] | | + + + + + + + Reason for Visit + + + | Reason | Comments | + + + | Abdominal Pain | Patient is here for ongoing mid epigastric pain. She describes | | | the pain as a gallbladder attack, but does not have a | | | gallbladder. Last BM was yesterday and patient stated that it was | | | normal. | + + + Encounter Details +--------+---------+ + + + | Date | Type | Department | Care Team | Description | +--------+---------+ + + + | 09/27/ | Office | [facility] | Fabrice Hansen | Epigastric pain | | 2019 | Visit | [facility] | DO Duarte Kan | (Primary Dx); | | | | [facility] [address] | [address] | Dysphagia, | | | | [address] | [address] [place], [place] | unspecified type | | | | [place], [place] | [address] | | | | | [address] | | | | | | [phone] | | | +--------+---------+ + + + [...] + + + | Blood Pressure | 120/74 | 09/27/2018 2:26 PM | | | | | PDT | | + + + + + | Pulse | 60 | 09/27/2018 2:26 PM | | | | | PDT | | + + + + + | Temperature | 37.2 C (98.9 F) | 09/27/2018 2:26 PM | | | | | PDT | | + + + + + | Respiratory Rate | - | - | | + + + + + | Oxygen Saturation | 98% | 09/27/2018 2:26 PM | | | | | PDT | | + + + + + | Inhaled Oxygen | - | - | | | Concentration | | | | + + + + + | Weight | 62.2 kg (137 lb 1.6 | 09/27/2018 2:26 PM | | | | oz) | PDT | | + + + + + | Height | - | - | | + + + + + | Body Mass Index | 23.53 | 07/15/2018 8:43 AM | | | | | PDT | | + + + + + documented in this encounter Progress Notes Fabrice Hansen, - 09/27/2018 2:00 PM PDTFormatting of this note might be diff erent from the original. Create Note1 Gurinder Thacker, Medical AssistantMedical AssistantSigned 09/27/2018 Addend Sloan Grace Subjective: Patient ID: Sharon Way is a 73 y.o. female. Chief Complaint Patient presents with Abdominal Pain Patient is here for ongoing mid epigastric pain. She describes the pain as a gallblad joan attack, but does not have a gallbladder. Last BM was yesterday and patient stated that i t was normal. HPI Here for eval Has pain in mid abdomen she describes as attacks every week. Seems to be be getting worse. Causing her pain and throwing up. No blood or coffee grounds appearance. bm normal Has tried ranitidine with little help Was on protonix which may have been better. Last year had an EGD by Dr. Frank, and it showed an esophageal stricture which he dila mercedez. No fever Eating well Patient's medications, allergies, past medical, surgical, social and family histories were obtained and reviewed as appropriate. Review of Systems Objective: BP 120/74 | Pulse 60 | Temp 37.2 C (98.9 F) (Oral) | Wt 62.2 kg (137 lb 1.6 oz) | S pO2 98% | BMI 23.53 kg/m Physical Exam Constitutional: She appears well-developed and well-nourished. No distress. Cardiovascular: Normal rate, regular rhythm, normal heart sounds and intact distal pulses. No murmur heard. Pulmonary/Chest: Effort normal and breath sounds normal. No stridor. No respiratory distres s. She has no wheezes. Abdominal: Soft. Bowel sounds are normal. She exhibits no mass. There is tenderness (epigas tric area with palpation). There is no rebound and no guarding. Skin: Skin is warm and dry. She is not diaphoretic. Nursing note and vitals reviewed. Assessment: Epigastric pain dysphagia Plan: Will send to gastroenterology for possible egd. May have reoccurance of a stricture again Will get a cmp, amylase and lipase to make sure there is no other pathology causing symptom s Will trial protonix 40 mg qd to see if this helps resolve symptoms educaiton on this given Destiny Mar, Manager Data Warehousing - 09/27/2018 2:00 PM PDTFormatting of this note might be different fro m the original. Subjective: Patient ID: Sharon Way is a 73 y.o. female. Chief Complaint Patient presents with Abdominal Pain Patient is here for ongoing mid epigastric pain. She describes the pain as a gallbladder attack, but does not have a gallbladder. Last BM was yesterday and patient stated that it wa s normal. HPI Here for eval Has pain in mid abdomen she describes as attacks every week. Seems to be be getting worse. Causing her pain and throwing up. No blood or coffee grounds appearance. bm normal Has tried ranitidine with little help Was on protonix which may have been better. Last year had an EGD by Dr. Frank, and it showed an esophageal stricture which he dila mercedez. No fever Eating well Patient's medications, allergies, past medical, surgical, social and family histories were obtained and reviewed as appropriate. Review of Systems Objective: BP 120/74 | Pulse 60 | Temp 37.2 C (98.9 F) (Oral) | Wt 62.2 kg (137 lb 1.6 oz) | S pO2 98% | BMI 23.53 kg/m Physical Exam Constitutional: She appears well-developed and well-nourished. No distress. Cardiovascular: Normal rate, regular rhythm, normal heart sounds and intact distal pulses. No murmur heard. Pulmonary/Chest: Effort normal and breath sounds normal. No stridor. No respiratory distres s. She has no wheezes. Abdominal: Soft. Bowel sounds are normal. She exhibits no mass. There is tenderness (epigas tric area with palpation). There is no rebound and no guarding. Skin: Skin is warm and dry. She is not diaphoretic. Nursing note and vitals reviewed. Assessment: Epigastric pain dysphagia Plan: Will send to gastroenterology for possible egd. May have reoccurance of a stricture again Will get a cmp, amylase and lipase to make sure there is no other pathology causing symptom s Will trial protonix 40 mg qd to see if this helps resolve symptoms educaiton on this given documented i n this encounter Plan of Treatment +--------+---------+ + + + | Date | Type | Specialty | Care Team | Description | +--------+---------+ + + + | 07/18/ | Office | Cardiology | Erin Limon | | | 2019 | Visit | | [facility] [address] | | | | | | [address] | | | | | | [place] [address] | | | | | | [phone] | | | | | | | | +--------+---------+ + + + + + +--------+ + + | Name | Type | Priori | Associated Diagnoses | Order Schedule | | | | ty | | | + + +--------+ + + | Ambulatory referral | Outpatient | Routin | Epigastric pain | Ordered: 09/27/2018 | | to Gastroenterology | Referral | e | Dysphagia, | | | | | | unspecified type | | + + +--------+ + + documented as of this encounter Results Comprehensive Metabolic Panel (09/27/2018 2:44 PM PDT) + + + + + [...] + + + + | Cl | 99 | 99 - 109 mmol/L | REFERENCE | | | | | | LAB | | | | | | [facility] | | | | | | [facility] | | + + + + + + | CO2 | 30 | 23 - 32 mmol/L | REFERENCE | | | | | | LAB | | | | | | [facility] | | | | | | [facility] | | + + + + + + | Anion Gap | 12 | 5 - 20 mmol/L | REFERENCE | | | | | | LAB | | | | | | [facility] | | | | | | [facility] | | + + + + + + | Glucose | 83 | 65 - 99 mg/dL | REFERENCE | | | | | | LAB | | | | | | [facility] | | | | | | [facility] | | + + + + + + | BUN | 12 | 8 - 25 mg/dL | REFERENCE | | | | | | LAB | | | | | | [facility] | | | | | | [facility] | | + + + + + + | Creatinine | 0.6 | 0.50 - 1.00 | REFERENCE | | | | | mg/dL | LAB | | | | | | [facility] | | | | | | [facility] | | + + + + + + | BUN/Creatin | 20 | | REFERENCE | | | ine Ratio | | | LAB | | | | | | [facility] | | | | | | LABORAT[facility] | | + + + + + + | Calcium | 9.4 | 8.5 - 10.5 | REFERENCE | | | | | mg/dL | LAB | | | | | | [facility] | | | | | | LAB[facility] | | + + + + + + | Protein, | 6.9 | 6.3 - 8.2 g/dL | REFERENCE [...] + + + + | Globulin | 2.8 | 1.3 - 4.9 g/dL | REFERENCE | | | | | | LAB | | | | | | [facility] | | | | | | [facility] | | + + + + + + | A/G Ratio | 1.5 | 1.0 - 2.4 | REFERENCE | [...] + + + | ALK PHOS | 171 (H) | 35 - 115 U/L | REFERENCE | | | | | | LAB | | | | | | [facility] | | | | | | [facility] | | + + + + + + | AST | 56 (H) | 10 - 45 U/L | REFERENCE | | | | | | LAB | | | | | | [facility] | | | | | | LABORAT[facility] | | + + + + + + | ALT | 163 (H) | 10 - 65 U/L | REFERENCE [...] | | | | | performed at [facility];[address] | | | | | | [facility] | | | | | | [address];[place] [address] | | | | | | | | | | + + + + + + + + | Specimen | + + | Blood | + + + + + + + | Performing | Address | City/State/Zipcode | Phone Number | | Organization | | | | + + + + + | REFERENCE LAB | [address] | [place] | [phone] | | [facility] | [address] | [address] | | | LABORATORY | | | | + + + + + | REFERENCE LAB | [address] | [place] | | | [facility] | [address] | [address] | | | LABORATORY | | | | + + + + + Lipase (09/27/2018 2:44 PM PDT) + + + + + + | Component | Value | Ref Range | Performed | Pathologist | | | | | At | Signature | + + + + + + | Lipase | 52 (L)Comment: Testing | 73 - 393 U/L | REFERENCE | | | | performed at [facility];[address] | | LAB | | | | [place] | | [facility] | | | | [address];[place] [address] | | LABORATORY | | + + + + + + + + | Specimen | + + | Blood | + + + + + + + | Performing | Address | City/State/Zipcode | Phone Number | | Organization | | | | + + + + + | REFERENCE LAB | [address] | [place], [place] | [phone] | | [facility] | [address] | [address] | | | LABORATORY | | | | + + + + + | REFERENCE LAB | [address] | [place], [place] | | | [facility] | [address] | [address] | | | LABORATORY | | | | + + + + + Amylase (09/27/2018 2:44 PM PDT) + + + + + + | Component | Value | Ref Range | Performed | Pathologist | | | | | At | Signature | + + + + + + | Amylase | 34Comment: Testing | 25 - 115 U/L | REFERENCE | | | | performed at [facility];[address] | | LAB | | | | [place] | | [facility] | | | | [address];[place] [address] | | LABORATORY | | + + + + + + + + | Specimen | + + | Blood | + + + + + + + | Performing | Address | City/State/Zipcode | Phone Number | | Organization | | | | + + + + + | REFERENCE LAB | [address] [place] [address] | [place], [place] | [phone] | | [facility] | [address] | [address] | | | LABORATORY | | | | + + + + + | REFERENCE LAB | [address] [place] [address] | [place], [place] | | | [facility] | [address] | [address] | | | LABORATORY | | | | + + + + + documented in this encounter Visit Diagnoses + + | Diagnosis | + + | Epigastric pain - Primary Abdominal pain, epigastric | + + | Dysphagia, unspecified type | + + documented in this encounter"
--- OUTSIDE RECORDS SUMMARY | ~2019-06-30 | XMS | Encounter Summary ---
Demographics + + + | Address | [address] | | | [place] [address] | + + + | Home Phone | | + + + | Preferred Language | Unknown | + + + | Marital Status | | + + + | Bahai Affiliation | 1041 | + + + | Race | Unknown | + + + | Ethnic Group | Unknown | + + + Author + + + | Author | [facility] | | | and Luisana | + + + | Organization | [facility] | | | and [...] Team Providers + +------+ + | Care Accounting Machine Servicer Name | Role | Phone | + [...] Description | +--------+--------+ + + + | 11/24/ | Refill | [facility] | Fabrice Hansen | Medication Refill | | 2019 | | [facility] | DO Duarte Kan [address] | | | | | [facility] [address] | [facility] | | | | | [address] [facility] [address] | [address] [place], [place] | | | | | [place], [place] | [id number] | | | | | [address] | | | | | | [phone] | | | +--------+--------+ + + + Social History + +-------+ [...] | | | | | [place] [address] | | | | | | [phone] | | | | | | | | +--------+---------+ + + + documented as of this encounter Visit Diagnoses Not on filedocumented in this encounter"
--- OUTSIDE RECORDS SUMMARY | ~2019-06-30 | XMS | Encounter Summary ---
Demographics + + + | Address | [address] | | | [place] [address] | + + + | Home Phone | | + + + | Preferred Language | Unknown | + + + | Marital Status | | + + + | Protestant Affiliation | 1041 | + + + | Race | Unknown | + + + | Ethnic Group | Unknown | + + + Author + + + | Author | [facility] | | | and [place] | + + + | Organization | [facility] | | | [...] Team Providers + +------+ + | Care Shader And Toner Name | Role | Phone | + +------+ + | Fabrice Hansen DO | PCP | | + +------+ + Reason for Visit Auth/Cert +--------+--------+ + [...] | | | cholangitis | | [place] | | | | | and | | [id number] Phone: | | | | | obstruction, | | [phone] | | | | | unspecified | | Fax: | | | | | cholangitis | | [phone] | | | | | acuity | [...] | | | | | | | MT ERCP DX | | | | | | | COLLECTION | | | | | | | SPECIMEN | | | | | | | BRUSHING/WAS | | | | | | | THALIA [place] | | | | | | | [...] + + + + | 12/31/ | Anesthesia | [facility] | Ministerio Hull MD | | | 2019 | Event | [facility] | [address] | | | | | INTRA [address] | [place] [address] | | | | | [place] | [phone] | | | | | [address] | | | | | | [phone] | | | +--------+ + + + + Anesthesia Record + + + + + | Procedure Name | Responsible | Anesthesia Start | Anesthesia Stop Time | | | Anesthesiologist | Time | | + + + + + | ENDOSCOPIC | Ministerio Hull MD | [birth year]/31/[birth year]45 | 12/31/18 0957 | | RETROGRADE | | | | | CHOLANGIOPANREATOG | | | | | (N/A ) | | | | + + + + + +----+---+ + + | Da | T | Event | Comment | | te | i | | | | | m | | | | | e | | | +----+---+ + + | 11 | 0 | | | | /2 | 7 | | | | 2/ | 3 | | | | 20 | 9 | | | | 19 | | | | +----+---+ + + | | 0 | An Checkout | Pre-use anesthesia machine/equipment checkout. | | | 8 | | | | | 3 | | | | | 5 | | | +----+---+ + + | | 0 | Anesthesia | | | | 8 | Ready | | | | 4 | | | | | 1 | | | +----+---+ + + | | 0 | An Start | Reassessment prior to anesthesia induction/procedure. | | | 8 | | | | | 4 | | | | | 5 | | | +----+---+ + + | | 0 | Preoxygenat | | | | 8 | ed | | | | 4 | | | | | 8 | | | +----+---+ + + | | 0 | An | | | | 8 | Induction | | | | 5 | | | | | 0 | | | +----+---+ + + | | 0 | An | | | | 8 | Intubation | | | | 5 | | | | | 3 | | | +----+---+ + + | | 0 | Pre-Procedu | | | | 9 | ral Timeout | | | | 0 | Completed | | | | 0 | | | +----+---+ + + | | 0 | an nick now | Scope in. | | | 9 | | | | | 0 | | | | | 3 | | | +----+---+ + + | | 0 | First | | | | 9 | Inc/Proc St | | | | 0 | | | | | 4 | | | +----+---+ + + | | 0 | AN Bite | | | | 9 | Block | | | | 3 | | | | | 9 | | | +----+---+ + + | | 0 | AN No | TOF 4/4 with sustained tetanus. | | | 9 | Residual | | | | 4 | NMB | | | | 0 | | | +----+---+ + + | | 0 | Breathing | | | | 9 | Spontaneous | | | | 4 | ly | | | | 0 | | | +----+---+ + + | | 0 | Oropharynx | | | | 9 | Suctioned | | | | 4 | | | | | 1 | | | +----+---+ + + | | 0 | Extubation/ | | | | 9 | Airway LDA | | | | 4 | Removal | | | | 2 | | | +----+---+ + + | | 0 | An Stop | Patient handed off to recovery nurse. Pt. Awake and alert. She | | | 9 | | is frustrated and angry about not having all of the stones | | | 5 | | removed. VSS. Patent natural airway. | +----+---+ + + +------+ | Meds | +------+ + +---------+ | Name | Total | + +---------+ | fentaNYL | 100 mcg | + +---------+ | lidocaine 2% | 100 mg | + +---------+ | propofol | 130 mg | + +---------+ | rocuronium | 30 mg | + +---------+ | ePHEDrine | 5 mg | + +---------+ | phenylephrine | 100 mcg | + +---------+ | ondansetron | 4 mg | + +---------+ | dexamethasone | 6 mg | + +---------+ | sugammadex | 150 mg | + +---------+ | lidocaine 4% | 160 mg | + +---------+ | PLASMALYTE-148/NORMOSOL-R IV | 0 mL | | infusion | | + +---------+ + + | Name | + + | N2O Flow Rate (L/Min) | + + | O2 Flow Rate (L/Min) | + + | Insp O2 | + + | Exp N2O | + + | Exp SEV | + + | Air Flow Rate (L/Min) | + + + + | No blood administrations on file. | + + +--------+ + + + | Type | Details | Placement | Removal | +--------+ + + + | Periph | 11/16/18; 1805; Right; Anterior | 11/16/181805 by | | | eral | (palmar); Antecubital; | Sudhir Juárez RN | | | IV | nwkf-nbn-giakpi catheter system; | | | | | 20 gauge; Coagulation, Chemistry, | | | | | Hematology | | | +--------+ + + + | Periph | 12/04/18; 1205; Right; | 12/04/18 1205 by | | | eral | Antecubital; vswb-ipe-[id number] | Chelsie Still, | | | IV | catheter system; 20 gauge; | RN | | | | Hematology, Chemistry, | | | | | Coagulation | | | +--------+ + + + | Periph | 12/31/18; 0741; Right; Medial; | 12/31/18 0741 by | 01/01/19 1230 by | | eral | Forearm; utvm-kwm-mhotxp catheter | Deedee Lemons, MIKEL | Roselyn Gonzalez RN | | IV | system; 20 gauge, 1 in length; | | | | | 0; distraction, tolerated well, | | | | | appears comfortable; IV placed by | | | | | Za MORIN; 01/01/19; 1230 | | | +--------+ + + + | Airway | Placement Date: 12/31/18; | 12/31/18 0853 by | 12/31/18 0942 by | | | Placement Time: 852 (created via | Ashley Hughes, | Kd Thomas CRNA | | | procedure documentation); Mask | CAGE UNLOADER | | | | Ventilation: EZ; Airway Grade: 1; | | | | | Successful Technique: video | | | | | scope (elective Cha); | | | | | Laryngoscope Blade Size: 3; | | | | | Attempts: 1; Airway Type: | | | | | endotracheal; Size: 7; Airway | | | | | Tube Secured At: 21; Trauma: | | | | | none; Other Equipment: stylette; | | | | | Placement Check: exhaled CO2 | | | | | detection device, video | | | | | laryngoscope, bilateral chest | | | | | rise, breath sounds equal | | | | | bilaterally; Removal Date: | | | | | 12/31/18; Removal Time: 941 | | | +--------+ + + + documented in this encounter Social History + + + +--------+------+ | [...] [address] | | | | | | [place] [address] | | | | | | [phone] | | | | | | | | +--------+---------+ + + + documented as of this encounter Procedures + +--------+ + + + | Procedure Name | Priori | Date/Time | Associated Diagnosis | Comments | | | ty | | | | + +--------+ + + + | ANE AIRWAY NOTE | Routin | 12/31/2018 | | Results for this | | | e | 8:57 AM | | procedure are in the | | | | PST | | results section. | + +--------+ + + + documented in this encounter Results Airway (12/31/2018 8:57 AM PST) + + + | Narrative | Performed At | + + + | Kd Thomas CRNA 12/31/2018 8:58 AM Anesthesia Airway | | | Placement 12/31/2018 8:53 AM Preprocedure check: patient | | | identified, oxygen, airway assessed, patient reassessment prior to | | | induction, airway equipment checked and suction Rapid Sequence | | | Induction: no Mask ventilation: easy Successful technique: | | | videoscope (elective [place]) Laryngoscope blade size: 3 Airway | | | grade: 1 (Full view of glottis) Other equipment: stylette Attempts: | | | 1 Airway type: endotracheal Size: 7 Cuffed: cuffed Route, | | | reference point: teeth/lips Tube depth: 21 cm Tube secured with: | | | adhesive tape Trauma: none Tube placement verification: bilateral | | | chest rise, video laryngoscope, equal bilateral breath sounds and | | | carbon dioxide detection Performing provider: Ashley Hughes CRNA | | | Authorizing provider: Ministerio Hull MD Please see | | | intraoperative grid for any additional medication documentation. | | + + + documented in this encounter Visit Diagnoses Not on filedocumented in this encounter Administered Medications + +---------+ +------+------+------+ | Medication Order | MAR | Action | Dose | Rate | Site | | | Action | Date | | | | + +---------+ +------+------+------+ | balanced electrolytes in water | New Bag | 01/01/20 | | | | | (PLASMALYTE-148/NORMOSOL-R) | | 19 8:45 | | | | | infusion CONTINUOUS PRN, | | AM PST | | | | | Starting 12/31/18 at 0845, | | | | | | | Anesthesia Intra-op | | | | | | + +---------+ +------+------+------+ +---+---+ | | | +---+---+ + +-------+ +------+---+---+ | dexamethasone (DECADRON) 10 | Given | 01/01/20 | 6 mg | | | | mg/mL injection Intravenous, | | 19 9:01 | | | | | PRN, Starting Thu12/31/18 at | | AM PST | | | | | 0901, Anesthesia Intra-op | | | | | | + +-------+ +------+---+---+ +---+---+ | | | +---+---+ + +-------+ +------+---+---+ | ePHEDrine 50 mg/mL injection | Given | 01/01/20 | 5 mg | | | | Intravenous, PRN, Starting Thu | | 19 8:57 | | | | | 12/31/18 at 0857, Anesthesia | | AM PST | | | | | Intra-op | | | | | | + +-------+ +------+---+---+ +---+---+ | | | +---+---+ + +-------+ +---------+---+---+ | fentaNYL (PF) injection | Given | 01/01/20 | 100 mcg | | | | Intravenous, PRN, Starting Fri | | 19 8:50 | | | | | 12/31/18 at 0850, Anesthesia | | AM PST | | | | | Intra-op | | | | | | + +-------+ +---------+---+---+ +---+---+ | | | +---+---+ + +-------+ +--------+---+---+ | lidocaine (PF) 2% injection | Given | 01/01/20 | 100 mg | | | | Intravenous, PRN, Starting Fri | | 19 8:50 | | | | | 19 at 0850, Anesthesia | | AM PST | | | | | Intra-op | | | | | | + +-------+ +--------+---+---+ +---+---+ | | | +---+---+ + +-------+ +--------+---+---+ | lidocaine (PF) 4% injection | Given | 01/01/20 | 160 mg | | | | PRN, Starting Thu12/31/18 at | | 19 8:53 | | | | | 0853, Anesthesia Intra-op | | AM PST | | | | + +-------+ +--------+---+---+ +---+---+ | | | +---+---+ + +-------+ +------+---+---+ | ondansetron (ZOFRAN) injection | Given | 01/01/20 | 4 mg | | | | Intravenous, PRN, Starting Thu | | 9:03 | | | | | 12/31/18 at 0903, Anesthesia | | AM PST | | | | | Intra-op | | | | | | + +-------+ +------+---+---+ +---+---+ | | | +---+---+ + +-------+ +---------+---+---+ | phenylephrine (HOLDEN-SYNEPHRINE, | Given | 01/01/20 | 100 mcg | | | | VAZCULEP) 10 mg/mL injection | | 19 8:59 | | | | | Intravenous, PRN, Starting Fri | | AM PST | | | | | 12/31/18 at 0859, Anesthesia | | | | | | | Intra-op | | | | | | + +-------+ +---------+---+---+ +---+---+ | | | +---+---+ + +-------+ +--------+---+---+ | propofol (DIPRIVAN) injection | Given | 01/01/20 | 130 mg | | | | Intravenous, PRN, Starting Fri | | 19 8:50 | | | | | 12/31/18 at 0850, Anesthesia | | AM PST | | | | | Intra-op | | | | | | + +-------+ +--------+---+---+ +---+---+ | | | +---+---+ + +-------+ +-------+---+---+ | rocuronium (ZEMURON) injection | Given | 01/01/20 | 30 mg | | | | Intravenous, PRN, Starting Fri | | 19 8:50 | | | | | 12/31/18 at 0850, Anesthesia | | AM PST | | | | | Intra-op | | | | | | + +-------+ +-------+---+---+ +---+---+ | | | +---+---+ + +-------+ +--------+---+---+ | sugammadex (BRIDION) injection | Given | 01/01/20 | 150 mg | | | | Intravenous, PRN, Starting Fri | | 9:39 | | | | | 12/31/18 at 0939, Anesthesia | | AM PST | | | | | Intra-op | | | | | | + +-------+ +--------+---+---+ +---+---+ | | | +---+---+ documented in this encounter"
--- OUTSIDE RECORDS SUMMARY | ~2019-06-30 | XMS | Encounter Summary ---
Demographics + + + | Address | [address] | | | [place] [address] | + + + | Home Phone [...] Team Providers + +------+ + | Care Otr Truck Driver Name | Role | Phone | + +------+ + | Fabrice Hansen DO | PCP | | + +------+ + Reason for Referral Evaluate & Treat (Routine) +--------+ + + + + + | Status | Reason | Specialty | Diagnoses / | Referred By | Referred To | | | | | Procedures | Contact | Contact | +--------+ + + + + + | Closed | Specialty | Liver and | Diagnoses | Limon, | Tom Limon | | | Services | Pancreas | Hepatic | Tom Carroll MD | MD [address] | | | Required | Surgery | lithiasis | [address] | | | | | Procedures | [address] | | | | | [place] RESEC | [place], | [place], [place] | | | | | LIVER,TOTAL | [place] [address] | [address] Phone: | | | | | LT LOBECTOMY | Phone: | [phone] | | | | | LEFT | [phone] | Fax: | | | | | HEPATECTOMY | Fax: | [phone] | | | | | | [phone] | | +--------+ + + + + + Reason for Visit +---------+ + | Reason | Comments | +---------+ + | Consult | Intrahepatic bile duct stones | +---------+ + Evaluate & Treat (Routine) + + [...] | Services | Pancreas | | MD Miguel | MD [address]arly [address] | | | Required | Surgery | Intrahepatic | [address] | | | | | bile duct | [address] | | | | | stones | [place], | [place], [place] | | | | | Procedures | [place] [address] | [address] Phone: | | | | | CARBIDE POWDER PROCESSOR | Phone: | [phone] | | | | | | [phone] | Fax: | | | | | | Fax: | [phone] | | | | | | [phone] | | + + + + + + + Encounter Details +--------+---------+ + + + | Date | Type | Department | Care Team | Description | +--------+---------+ + + + | 01/10/ | Office | [facility] | Tom Limon MD | Hepatic lithiasis | | 2019 | Visit | and Pancreas GI | [address] | (Primary Dx); | | | | [facility] [address] | [address] [place], [place] | Intrahepatic bile | | | | [address] | [address] | duct carcinoma (HCC) | | | | [place], [place] | | | | | | [address] | | | | | | [phone] | | | +--------+---------+ + + + Social History + + [...] + + + | Blood Pressure | 136/93 | 01/10/2019 2:13 PM | | | | | PST | | + + + + + | Pulse | 69 | 01/10/2019 2:13 PM | | | [...] + + + + | Weight | 61.2 kg (135 lb) | 01/10/2019 2:13 PM | | | | | PST | | + + + + + | Height | 162.6 cm (5' 4") | 01/10/2019 2:13 PM | | | | | PST | | + + + + + | Body Mass Index | 23.17 | 01/10/2019 2:13 PM | | | | | PST | | + + + + + documented in this encounter Patient Instructions Patient Instructions Tom Limon MD - 01/10/2019 2:[address] Limon went over your diagnosis and options for care. Based on your discussion with him, the following recommendations were made: ? You have a stricture and stones in the left side of your liver. We discussed treatment o ptions including surgery, percutaneous management and observation. ? We will plan to get an abdomen MRI with contrast and MRCP and see you in [place] If you have any medical questions or concerns please feel free to call MIKEL Duckworth at [phone] or Yeni DODSON at [phone] Thank you for letting us take part in your care today. [facility] [phone] documented in this encounter Progress Notes Tom Limon MD - 01/10/2019 2:00 PM PST [facility] Note Referring Provider: Miguel Cadena MD Primary Care Physician: Fabrice Hansen DO Impression: 73-year-old female with history of COPD, CAD, CABG in 2001, open cholecystectomy 40 years a go, and right sided liver abscess February 2018 treated with percutaneous drainage and IV ant ibiotics. Patient most recently treated for cholangitis, choledocholithiasis with ERCP on and then again on 12/31/18. Per ERCP / cholangioscopy report most of the right-side d ducts appeared normal and clear. On the left side there was a duct at a 90 angle with a tight stricture at about 1 cm from the right/left bifurcation that was unable to be cleared . Discussed the implications of biliary strictures. The biliary strictures, left-sided in trahepatic stones represent an ongoing risk for cholangitis. The current stricture is of un clear etiology, although more than likely benign from recent inflammatory/infectious process es, an underlying malignancy cannot be completely excluded. Also, long-term intrahepatic lithiasis, strictures represent a risk of malignancy. We discussed treatment options inc luding resection, percutaneous approaches to the left intrahepatic ducts for clearing stones and potentially sampling the stricture. Patient at this point would like to hold off on a ny aggressive interventions, patients understand risks / benefits. Recommendations: abdomen MRI with contrast in 3 months at [facility] Thank you for allowing me to participate in the care of your patient. If you have any ques tions or concerns regarding her evaluation, please feel free to contact me at [phone]. Tom Limon MD, FACS ----- History of Present Illness: Sharon Way is a 73 y.o. female who is seen in consultation for recent history of ch olangitis, ERCP for clearing of common bile duct stones in 11/09/18. Patient with history o f open cholecystectomy 40 years ago. Patient with left intrahepatic duct stricture. Direct cholangioscopy 12/31/18 showing normal right intrahepatic ducts and most of the left intrah epatic ducts except one branch with stones at a 90 angle, unable to clear with cholangiosc opy. Patient with history of liver abscesses in February 2018 treated with percutaneous drai n and IV antibiotics at [facility] in [place]. Past Medical History: Past Medical History: Diagnosis Date Acid reflux disease Adverse effect of anesthesia slow to wake Anesthesia complication TAKES LONG TIME TO WAKE Arthritis Asthma Calculus of bile duct Calculus of bile duct with cholangitis and obstruction Cataract removed bilaterally-lens implants Cholelithiasis COPD (chronic obstructive pulmonary disease) (HCC) 10/18/2012 Coronary artery disease 2002 CABG Depression Disorder of thyroid Gall bladder disease removed GERD (gastroesophageal reflux disease) Heart attack (HCC) Dr Gutierrez at [facility] Heart disease High cholesterol HTN (hypertension) 10/18/2012 Intrahepatic bile duct dilation Irritable bowel syndrome Joint pain Liver abscess 03/05/2018 Neuromuscular disorder ([facility]) PONV (postoperative nausea and vomiting) Range of motion deficit left hip Use of cane as ambulatory aid 12/30/2018 Visual disturbance glasses Wears partial dentures upper and lower Past Surgical History Past Surgical History: Procedure Laterality Date APPENDECTOMY CARDIAC CATHERIZATION CARDIOVASCULAR SURGERY TRIPLE BYPASS CARPAL TUNNEL RELEASE Right 10/18/2012 Procedure: CARPAL TUNNEL RELEASE; Surgeon: Yung Gomez MD; Location: [facility] MAIN OR ; Service: Neurosurgery; Laterality: Right; SECTION CHOLECYSTECTOMY COLONOSCOPY 07/2017 CORONARY ARTERY BYPASS GRAFT [address] [place] ERCP N/A 11/09/2018 Procedure: ERCP, SPYGLASS; Surgeon: Bacilio Thompson MD; Location: [facility] MEDICAL PROCEDURE UN IT ERCP N/A 12/31/2018 Procedure: ENDOSCOPIC RETROGRADE CHOLANGIOPANREATOG; Surgeon: Miguel Cadena MD; Location : [facility] PROC[facility]URE UNIT LIVER SURGERY 01/2018 LIVER DRAIN FOR LIVER ABCESS OTHER SURGICAL HISTORY OTHER SURGICAL HISTORY CATARACT EXTRACTION OTHER SURGICAL HISTORY UNLISTED PROCEDURE ARTHROSCOPY - bilateral thumbs OTHER SURGICAL HISTORY 08/03/2017 COLONOSCOPY WITH EGD - Procedure: COLONOSCOPY W/ EGD; Surgeon: Rich Frank MD; L ocation: [facility] ENDOSCOPY; Service: Gastroenterology; Laterality: N/A; GRIS AND BSO UPPER GASTROINTESTINAL ENDOSCOPY 07/2017 Past Family History Family History Problem Relation Age of Onset Colon polyps Father Cancer Other Heart disease Other Hypertension Other Diabetes Other Colon polyps Sister Colon polyps Brother Colon cancer Brother Medication Current Outpatient Medications on File Prior to Visit Medication Sig Dispense Refill acetaminophen (TYLENOL) 500 [...] route Twice daily as needed for Allergies. levothyroxine (SYNTHROID) 50 mcg tablet Take 50 mcg by mouth every morning (before sia kfast). lisinopril (PRINIVIL, ZESTRIL) 10 mg tablet Take 10 mg by mouth Daily. nitroglycerin (NITROSTAT) 0.[address] 0.4 mg under the tongue every 5 minute s as needed for Chest pain. pantoprazole (PROTONIX) 40 mg tablet Take 40 mg by mouth every morning (before breakfas t). traZODone (DESYREL) 150 MG tablet Take 75-150 mg by mouth nightly. Mostly takes 75 mg triamcinolone (KENALOG) 0.025% ointment Apply 0.025 Units topically as needed for Rash. venlafaxine (EFFEXOR) 75 MG tablet Take 225 mg by mouth Daily. No current facility-administered medications on file prior to visit. Allergy: Allergies Allergen Reactions Morphine Anxiety and Hallucination Agitation Penicillins Hives Hives Sulfa Antibiotics Hives Hives Wellbutrin [Bupropion] Hives Hives Chantix [Varenicline] Anxiety Agitation, Extreme agitation and mood changes and nausea Social History Social History Socioeconomic History Marital status: Spouse name: Not on file Number of children: 2 Years of education: Not on file Highest education level: Not on file Occupational History Not on file Social Needs Financial resource strain: Not on file Food insecurity: Worry: Not on file Inability: Not on file Transportation needs: Medical: Not on file Non-medical: Not on file Tobacco Use Smoking status: Current Every Day Smoker Packs/day: 0.50 Years: 25.00 Pack years: 12.50 Types: Cigarettes Smokeless tobacco: Never Used Substance and Sexual Activity Alcohol use: Yes Alcohol/week: 3.0 standard drinks Types: 3 Glasses of wine per week Drug use: Not Currently Comment: Drug use: No Sexual activity: Not Currently Partners: Male Lifestyle Physical activity: Days per week: Not on file Minutes per session: Not on file Stress: Not on file Relationships Social connections: Talks on phone: Not on file Gets together: Not on file Attends worship service: Not on file Active member of club or organization: Not on file Attends meetings of clubs or organizations: Not on file Relationship status: Not on file Intimate partner violence: Fear of current or ex partner: Not on file Emotionally abused: Not on file Physically abused: Not on file Forced sexual activity: Not on file Other Topics Concern Not on file Social History Narrative Not on file Review of Systems - Review of Systems Eyes: Positive for photophobia. Genitourinary: Positive for frequency and urgency. Musculoskeletal: Positive for joint pain and myalgias. Psychiatric/Behavioral: Positive for depression. The patient is nervous/anxious. All other systems reviewed and are negative. Physical Examination: Vitals: There were no vitals filed for this visit. There is no height or weight on file to calculate BMI. GEN: well-developed, well-nourished; in no acute distress HEENT: atraumatic, normocephalic, conjunctiva clear; sclera nonicteric RESP: lungs clear without W/R/R, normal respiratory effort C/V: regular rate and rhythm without murmurs, rubs, or gallops GI: Soft, not tender, not distended SKIN: warm, dry, no lesions, rash, jaundice M/S: Normal gait PSYCH: normal mood and affect NEURO: alert and oriented x 3 Laboratory DATA: Reviewed Radiologic DATA: Reviewed CC: Miguel Cadena MD Charles E. Batayola, DO Juan C Mejia MD, [facility] [address] [place] [address] documented in this enco unter Plan of Treatment +--------+---------+ + + + | Date | Type | Specialty | Care Team | Description | +--------+---------+ + + + | 07/18/ | Office | Cardiology | Erin Limon | | | 2019 | Visit | | [address] | | | | | | [address] | | | | | | [place] [address] | | | | | | [phone] | | | | | | | | +--------+---------+ + + + + + +--------+ + + | Name | Type | Priori | Associated Diagnoses | Order Schedule | | | | ty | | | + + +--------+ + + | * [facility] [place] [facility] | Outpatient | Routin | Hepatic lithiasis | Ordered: 01/09/2019 | | Pancrease Surgery - | Referral | e | | | | AMB Referral | | | | | + + +--------+ + + documented as of this encounter Procedures + +--------+ + + + | Procedure Name | Priori | Date/Time | Associated Diagnosis | Comments | | | ty | | | | + +--------+ + + + | LABS - EXTERNAL SCAN | | 03/16/2019 | | Results for this | | | | 12:00 AM | | procedure are in the | | | | PST | | results section. | + +--------+ + + + documented in this encounter Results CA 19-9, Quant (03/16/2019 9:52 AM PST) + + + + + + | Component | Value | Ref Range | Performed | Pathologist | | | | | At | Signature | + + + + + + | CA 19-9 | 7.83Comment: [facility] | 0 - 37 U/mL | REFERENCE | | | | (FORMERLY CHANG) ADVIA | | LAB | | | | CENTAUR IMMUNOASSAY | | [facility] | | | | METHOD IS USED.RESULTS | | LABORATORY | | | | OBTAINED WITH DIFFERENT | | | | | | ASSAY METHODS OR KITS | | | | | | CANNOT BE | | | | | | USEDINTERCHANGEABLY.Test | | | | | | ing performed at | | | | | | TCL;[address] | | | | | | anthony;[place] [address] | | | | | | | | | | + + + + + + + + | Specimen | + + | Blood | + + + + + + + | Performing | Address | City/State/Zipcode | Phone Number | | Organization | | | | + + + + + | REFERENCE LAB | [address] [place] [address] | [place], [place] | [phone] | | [facility] | [address] | [address] | | | LABORATORY | | | | + + + + + | REFERENCE LAB | [address] [place] [address] | [place], [place] | | | [facility] | [address] | [address] | | | LABORATORY | | | | + + + + + LABS - EXTERNAL SCAN (03/16/2019 12:00 AM PST) + + + | Narrative | Performed At | + + + | Ordered by an | | | unspecified provider. 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
--- OUTSIDE RECORDS SUMMARY | ~2019-06-30 | XMS | Encounter Summary ---
Demographics + + + | Address | [address] | | | [place] [address] | + + + | Home Phone [...] Team Providers + +------+ + | Care Cinema Or Theatre Manager Name | Role | Phone | + +------+ + | Fabrice Hansen DO | PCP | | + +------+ + Encounter Details +--------+ + + + + | Date | Type | Department | Care Team | Description | +--------+ + + + + | 06/01/ | Orders Only | [facility] | Conversion | | | 2019 | | CONVERSION [address] | Transaction, | | | | | [address] | Provider Unknown | | | | | [place], [place] | [phone] | | | | | [address] | | | | | | [phone] | | | +--------+ + + + [...] | | | | | [place] [address] | | | | | | [phone] | | | | | | | | +--------+---------+ + + + documented as of this encounter Visit Diagnoses Not on filedocumented in this encounter"
--- OUTSIDE RECORDS SUMMARY | ~2019-06-30 | XMS | Encounter Summary ---
Demographics + + + | Address | [address] | | | [place] [address] | + + + | Home Phone | | + + + | Preferred Language | Unknown | + + + | Marital Status | | + + + | Mu-Ism Affiliation | 1041 | + + + | Race | Unknown | + + + | Ethnic Group | Unknown | + + + Author + + + | Author | [facility] | | | and [place] | + + + | Organization | [facility] | | | and [...] Team Providers + +------+ + | Care Director Print Name | Role | Phone | + [...] Description | +--------+--------+ + + + | 12/06/ | Refill | [facility] | Fabrice Hansen | Medication Refill | | 2019 | | [facility] | DO Duarte Kan [place] | | | | | [facility] [address] | [facility] | | | | | [place] [facility] [address] | [address] [place], [place] | | | | | [place], [place] | [id number] | | | | | [address] | | | | | | [phone] | | | +--------+--------+ + + + [...] | | | | | [place] [address] | | | | | | [phone] | | | | | | | | +--------+---------+ + + + documented as of this encounter Visit Diagnoses Not on filedocumented in this encounter"
--- OUTSIDE RECORDS SUMMARY | ~2019-06-30 | XMS | Encounter Summary ---
Demographics + + + | Address | [address] | | | [place] [address] | + + + | Home Phone | | + + + | Preferred Language | Unknown | + + + | Marital Status | | + + + | Anabaptist Affiliation | 1041 | + + + | Race | Unknown | + + + | Ethnic Group | Unknown | + + + Author + + + | Author | [facility] | | | and Luisana | + + + | Organization | [facility] | | | [...] Team Providers + +------+ + | Care Software Sales Representative Name | Role | Phone | + +------+ + | Fabrice Hansen DO | PCP | | + +------+ + Reason for Referral Diagnostic/Screening (Emergency) +--------+--------+ + + + + | Status | Reason | Specialty | Diagnoses / | Referred By | Referred To | | | | | Procedures | Contact | Contact | +--------+--------+ + + + + | Closed | | Radiology | Diagnoses | Rey, | [facility] | | | | | Epigastric | Meme A, | [address] | | | | | 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 | 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 [address] | | | | | pain | BLVD | [place], [place] | | | | | History of | [place], [place] | [address] | | | | | cholecystect | [address] | Phone: | | | | | charleen | Phone: | [phone] | | | | | Procedures | [phone] | Fax: | | | | | MRI Abdomen | Fax: | [phone] | | | | | w wo | [phone] | | | | | | Contrast | | | | | | | MRCP | | | +--------+--------+ + + + + Reason for Visit Diagnostic/Screening (Emergency) +--------+--------+ + + + + | Status | Reason | Specialty | Diagnoses / | Referred By | Referred To | | | | | Procedures | Contact | Contact | +--------+--------+ + + + + | Closed | | Radiology | Diagnoses | Rey, | [facility] | | | | | Epigastric | Meme A, | [address] | | | | | abdominal | 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 [address] | | | | | pain | BLVD | [place], [place] | | | | | History of | [place], [place] | [address] | | | | | cholecystect | [address] | Phone: | | | | | charleen | Phone: | [phone] | | | | | Procedures | [phone] | Fax: | | | | | MRI Abdomen | Fax: | [phone] | | | | | w wo | [phone] | | | | | | Contrast | | | | | | | MRCP | | | +--------+--------+ + + + + Encounter Details +--------+ + + + + | Date | Type | Department | Care Team | Description | +--------+ + + + + | 11/02/ | Hospital | [facility] | Meme Le | Epigastric abdominal | | 2019 | Encounter | [facility] | A, 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 [address] | pain; History of | | | | [address] | [place] [address] | cholecystectomy | | | | [place], [place] | [phone] | | | | | [address] | | | | | | [phone] | | | +--------+ + + + [...] mg by mouth | | 0 | / | | | (PRINIVIL, ZESTRIL) | Daily. | | | 19 | | | 10 mg tablet | | | | | | + + + +---------+ + + | nitroglycerin | Place 0.4 mg under | | 0 | //20 | | | (NITROSTAT) 0.4 mg | [...] | acetaminophen | Take 500 mg by | | 0 | | | | (TYLENOL) 500 mg | mouth. | | | | 9 | | tablet | | | | | | + + + +---------+ + + | acetaminophen | Take 500 mg by mouth | | 0 | 11/05/19 | | | (TYLENOL) 500 mg | every 6 (six) hours | | | 18 | 9 | | tablet | as needed for Pain. | | | | | + + + +---------+ + + | albuterol 90 | Inhale 2 puffs into | 1 | 2 | 05/26/19 | | | mcg/puff inhaler | the lungs every 4 | Inhaler | | 19 | 9 | | | (four) hours as | | | | | | | needed. | | | | | + + + +---------+ + + | aspirin 81 mg EC | Take 81 mg by mouth | | 0 | | | | tablet | Daily. | | | | 9 | + + + +---------+ + + | atorvaSTATin | Take 40 mg by mouth | | 0 | 09/12/19 | | | (LIPITOR) 40 mg | Daily. | | | 19 | 0 | | tablet | | | | | | + + + +---------+ + + | atorvaSTATin | Take 1 tablet by | 90 | 3 | 03/05/19 | | | (LIPITOR) 40 mg | mouth nightly. | tablet | | 19 | 9 [...] + + + +---------+ + + | dicyclomine | Take 1 tablet by | 120 | 11 | 12/09/19 | | | (BENTYL) 20 MG | mouth every 6 (six) | tablet | | 18 | 9 | | tablet | hours. | | | | | + + + +---------+ + + | fluticasone | 1 spray by Each Nare | | 0 | 06/02/19 | | | (FLONASE) 50 | route daily. | | | 19 | 9 | | mcg/nasal spray | | | | | | + + + +---------+ + + | ibuprofen | Take 600 mg by mouth | | 0 | | | | (ADVIL,MOTRIN) 600 | as needed. | | | | 9 | | MG tablet | | | | | | [...] +---------+ + + | levothyroxine | Take 1 tablet by | 90 | 0 | 09/10/19 | | | (SYNTHROID) 50 mcg | mouth every morning | tablet | | 19 | 9 | | tablet | before breakfast. | | | | | + + + +---------+ + + | lidocaine | Place 1 patch onto | | 0 | 03/15/19 | | | (LIDODERM) 5% patch | the skin as needed. | | | 19 | 9 | + + + +---------+ + + | metoprolol | Take 1 tablet by | 90 | 3 | 06/02/19 | | | succinate | mouth daily. | tablet | | 19 | 9 | | (TOPROL-XL) 25 mg 24 | | | | | | | hr tablet | | | | | | + + + +---------+ + + | pantoprazole | Take 1 tablet by | 30 | 1 | 09/28/19 | | | (PROTONIX) 40 mg | mouth Daily. | tablet | | 19 | 9 | | tablet | | | | | | + + + +---------+ + + | raNITIdine | Take 150 mg by mouth | | 0 | 09/03/19 | | | (ZANTAC) 150 mg | Daily. | | | 19 [...] + + + +---------+ + + | VENTOLIN HFA 108 | Inhale 108 mcg into | | 0 | 05/26/19 | | | (90 Base) MCG/ACT | the lungs as needed. | | | 19 | 9 | | inhaler | | | | | | [...] MÉNDEZ | | | | | | [place] [address] | | | | | | [phone] | | | | | | | | +--------+---------+ + + + documented as of this encounter Procedures + +--------+ + + + | Procedure Name | Priori | Date/Time | Associated Diagnosis | Comments | | | ty | | | | + +--------+ + + + | MRI ABDOMEN W WO | STAT | 11/02/2018 | Epigastric | Results for this | | CONTRAST MRCP | | 6:33 PM | abdominal pain | procedure are in the | | | | PDT | History of | results section. | | | | | cholecystectomy | | + +--------+ + + + documented in this encounter Results MRI Abdomen w wo Contrast MRCP (11/02/2018 6:33 PM PDT) + + | Specimen | + + | | + + + + + | Narrative | Performed At | + + + | MR ABDOMEN WITHOUT AND WITH IV CONTRAST CLINICAL INFORMATION: | [facility] | | Epigastric abdominal pain. COMPARISON: CTA CHEST W WO CONTRAST | | | (08/06/2017); PROCEDURE: MRI of the abdomen performed in axial and | | | coronal planes with and without IV contrast, including dedicated | | | MRCP sequences. 3D was not performed on an independent | | | workstation. Contrast: 6 ml gadavist was administered | | | intravenously. FINDINGS: MRCP: MR Abdomen: Lung Bases: Bases | | | Liver: liver Pancreas, Adrenal glands and Spleen: organs Kidneys: | | | kidneys Peritoneum and Retroperitoneum: peritoneum Vessels: abdomen | | | vessels Lymph Nodes: nodes Body Wall: Wall Bones: Bones MRCP: | | | Status post cholecystectomy. Choledocholithiasis with numerous | | | stones present within the common bile duct ranging up to 1 cm in size. | | | The common hepatic duct is dilated measuring 14-15 mm. There is | | | mild to moderate intrahepatic biliary ductal dilatation as well. | | | There are multiple intrahepatic biliary calculi present within the | | | left lobe ranging up to 7 mm in size. There is possibly stricturing | | | near confluence of left lobe segmental ducts. There is some | | | periductal enhancement within the left lobe suggestive of | | | cholangitis. This stones demonstrate increased T1 signal | | | precontrast, suggesting pigmented stones. MR Abdomen: Lung | | | Bases: Fatty metaplasia evident at LV apex consistent with prior | | | myocardial infarction. No pleural effusions or consolidation. | | | Liver: Please see above regarding choledocholithiasis findings with | | | presence of periductal enhancement within the left lobe, suggestive of | | | cholangitis. No evidence of significant focal hepatic mass lesion. | | | Pancreas, Adrenal glands and Spleen: Normal spleen and adrenal | | | glands. There is a multi cystic lesion within the posterior aspect of | | | the pancreatic head measuring 16 mm in greatest dimension. This | | | does appear to communicate with the main pancreatic duct. No | | | evident mural nodularity, significant enhancement or solid component. | | | This is consistent with branch duct IPMN. Additional smaller 9 | | | mm cystic lesion near junction pancreatic body and tail likely with | | | communication with the main duct there are also a couple of tiny | | | cystic lesions within the pancreatic neck, head consistent with | | | additional small branch duct IPMN lesions. Main pancreatic duct | | | measures 3-4 mm. No acute pancreatitis changes. No parenchymal | | | atrophy. Kidneys: No solid masses or hydronephrosis. Peritoneum and | | | Retroperitoneum: No ascites or significant retroperitoneal | | | abnormality. Vessels: Unremarkable. Lymph Nodes: No adenopathy. | | | Body Wall: No evidence of complicated hernia or significant mass. | | | Bones: No significant marrow signal abnormality. IMPRESSION: | | | 1. Status post cholecystectomy. Extensive extrahepatic | | | choledocholithiasis with numerous stones present ranging up to 1 cm in | | | size. Common hepatic duct dilated up to 15 mm. There is also | | | intrahepatic choledocholithiasis within left lobe as described above. | | | Question possible stricturing at confluence of segmental left lobe | | | ducts. There is some periductal enhancement within left lobe | | | suggestive of cholangitis. This stones demonstrate increased T1 | | | signal precontrast, suggesting pigmented stones. 2. 16 mm multi | | | cystic lesion within posterior aspect of the pancreatic head. This | | | does appear to communicate with the main pancreatic duct and is | | | consistent with branch duct IPMN. Additional smaller cystic lesions | | | within the pancreatic neck and near junction body-tail consistent | | | with additional small branch duct IPMN lesions. No high risk | | | features. Pancreatic cyst follow up recommendation: Pancreatic | | | IPMN cysts between 1.5 and 1.9 cm without high risk or worrisome | | | features are rarely clinically significant. Recommend non-urgent | | | pancreatic specialist referral and MRI with and without contrast with | | | MRCP annually for 5 years, then every 2 years for a total of 9 years | | | after initial detection. No further imaging if cyst remains less | | | than 1.9 cm or when appropriate based on overall health condition and | | | potential surgical candidacy. (Based on [employer] | | | [employer] and [place] Guidelines, 2017) . 3. No imaging evidence of | | | acute pancreatitis. 4. Fatty metaplasia noted at the left ventricular | | | cardiac apex, consistent with prior myocardial infarction. | | | Signed by: Shanell Brown Bruce Sign Date/Time: | | | 11/02/2018 7:24 PM | | + + + + + | Procedure Note | + + | Dex, Rad Results In - 11/02/2018 7:27 PM PDT | | MR ABDOMEN WITHOUT AND WITH IV CONTRAST | | | | CLINICAL INFORMATION: | | Epigastric abdominal pain. | | | | COMPARISON: | | CTA CHEST W WO CONTRAST (08/06/2017); | | | | PROCEDURE: | | MRI of the abdomen performed in axial and coronal planes with and | | without IV contrast, including dedicated MRCP sequences. | | | | 3D was not performed on an independent workstation. | | | | Contrast: 6 ml gadavist was administered intravenously. | | | | FINDINGS: | | MRCP: | | | | MR Abdomen: | | Lung Bases: Bases | | Liver: liver | | Pancreas, Adrenal glands and Spleen: organs | | Kidneys: kidneys | | Peritoneum and Retroperitoneum: peritoneum | | Vessels: abdomen vessels | | Lymph Nodes: nodes | | Body Wall: Wall | | Bones: Bones | | MRCP: Status post cholecystectomy. Choledocholithiasis with numerous | | stones present within the common bile duct ranging up to 1 cm in size. | | The common hepatic duct is dilated measuring 14-15 mm. There is mild | | to moderate intrahepatic biliary ductal dilatation as well. There are | | multiple intrahepatic biliary calculi present within the left lobe | | ranging up to 7 mm in size. There is possibly stricturing near | | confluence of left lobe segmental ducts. There is some periductal | | enhancement within the left lobe suggestive of cholangitis. This | | stones demonstrate increased T1 signal precontrast, suggesting | | pigmented stones. | | | | MR Abdomen: | | Lung Bases: Fatty metaplasia evident at LV apex consistent with prior | | myocardial infarction. No pleural effusions or consolidation. | | Liver: Please see above regarding choledocholithiasis findings with | | presence of periductal enhancement within the left lobe, suggestive of | | cholangitis. No evidence of significant focal hepatic mass lesion. | | Pancreas, Adrenal glands and Spleen: Normal spleen and adrenal glands. | | There is a multi cystic lesion within the posterior aspect of the | | pancreatic head measuring 16 mm in greatest dimension. This does | | appear to communicate with the main pancreatic duct. No evident mural | | nodularity, significant enhancement or solid component. This is | | consistent with branch duct IPMN. Additional smaller 9 mm cystic | | lesion near junction pancreatic body and tail likely with communication | | with the main duct there are also a couple of tiny cystic lesions | | within the pancreatic neck, head consistent with additional small | | branch duct IPMN lesions. Main pancreatic duct measures 3-4 mm. No | | acute pancreatitis changes. No parenchymal atrophy. | | Kidneys: No solid masses or hydronephrosis. | | Peritoneum and Retroperitoneum: No ascites or significant | | retroperitoneal abnormality. | | Vessels: Unremarkable. | | Lymph Nodes: No adenopathy. | | Body Wall: No evidence of complicated hernia or significant mass. | | Bones: No significant marrow signal abnormality. | | | | IMPRESSION: | | | | | | 1. Status post cholecystectomy. Extensive extrahepatic | | choledocholithiasis with numerous stones present ranging up to 1 cm in | | size. Common hepatic duct dilated up to 15 mm. There is also | | intrahepatic choledocholithiasis within left lobe as described above. | | Question possible stricturing at confluence of segmental left lobe | | ducts. There is some periductal enhancement within left lobe | | suggestive of cholangitis. This stones demonstrate increased T1 signal | | precontrast, suggesting pigmented stones. | | 2. 16 mm multi cystic lesion within posterior aspect of the pancreatic | | head. This does appear to communicate with the main pancreatic duct | | and is consistent with branch duct IPMN. Additional smaller cystic | | lesions within the pancreatic neck and near junction body-tail | | consistent with additional small branch duct IPMN lesions. No high | | risk features. Pancreatic cyst follow up recommendation: Pancreatic | | IPMN cysts between 1.5 and 1.9 cm without high risk or worrisome | | features are rarely clinically significant. Recommend non-urgent | | pancreatic specialist referral and MRI with and without contrast with | | MRCP annually for 5 years, then every 2 years for a total of 9 years | | after initial detection. No further imaging if cyst remains less than | | 1.9 cm or when appropriate based on overall health condition and | | potential surgical candidacy. (Based on [employer] | | and [place] Guidelines, 2017) . | | 3. No imaging evidence of acute pancreatitis. | | 4. Fatty metaplasia noted at the left ventricular cardiac apex, | | consistent with prior myocardial infarction. | | | | | | | | | | | | | | Signed by: Shanell Brown Bruce | | Sign Date/Time: 11/02/2018 7:24 PM | + + + +---------+ + + | Performing | Address | City/State/Zipcode | Phone Number | | Organization | | | | + +---------+ + + | [facility] | | | | + +---------+ + + documented in this encounter Visit Diagnoses + + | Diagnosis | + + | Epigastric abdominal pain Abdominal pain, epigastric | + + | History of cholecystectomy Other acquired absence of organ | + + documented in this encounter Administered Medications + +--------+ +-------+------+------+ | Medication Order | MAR | Action | Dose | Rate | Site | | | Action | Date | | | | + +--------+ +-------+------+------+ | gadobutrol (GADAVIST) injection | Given | 11/03/19 | 6 mLs | | | | 6 mL 6 mL, Intravenous, ONCE | | 19 6:32 | | | | | SARAN, Other, Starting 11/02/18 | | PM PDT | | | | | at 1832, For 1 dose, MRI | | | | | | + +--------+ +-------+------+------+ +---+---+ | | | +---+---+ documented in this encounter"
--- OUTSIDE RECORDS SUMMARY | ~2019-06-30 | XMS | Encounter Summary ---
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 [address] | | | | | pain | BLVD | [place], [place] | | | | | History of | [place], [place] | [address] | | | | | cholecystect | [address] | Phone: | | | | | charleen | Phone: | [phone] | | | | | Procedures | [phone] | Fax: | | | | | MRI Abdomen | Fax: | [phone] | | | | | w wo | [phone] | | | | | | Contrast [...] | | | | | 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 | 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 [address] | | | | | pain | BLVD | [place], [place] | | | | | History of | [place], [place] | [address] | | | | | cholecystect | [address] | Phone: | | | | | charleen | Phone: | [phone] | | | | | Procedures | [phone] | Fax: | | | | | MRI Abdomen | Fax: | [phone] | | | | | w wo | [phone] | | | | | | Contrast | | | | | | | MRCP | | | +--------+--------+ + + + + Encounter Details +--------+ + + + + | Date | Type | Department | Care Team | Description | +--------+ + + + + | 11/02/ | Hospital | [facility] | Meme Le | Epigastric abdominal | | 2019 | Encounter | [facility] | A, 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 (Based on [employer] | | | [employer]iology and [...] | | potential surgical candidacy. (Based on [employer] | | and [place] [...]
--- OUTSIDE RECORDS SUMMARY | ~2019-06-30 | XMS | Encounter Summary ---
Demographics + + + | Address | [address] | | | [place] [address] | + + + | Home Phone | | + + + | Preferred Language | Unknown | + + + | Marital Status | | + + + | Mandaeism Affiliation | 1041 | + + + | Race | Unknown | + + + | Ethnic Group | Unknown | + + + Author + + + | Author | [facility] | | | and Luisana | + + + | Organization | [facility] | | [...] Team Providers + +------+ + | Care Environmental Change Analyst Name | Role | Phone | + [...] Description | +--------+--------+ + + + | 03/19/ | Refill | [facility] | Fabrice Hansen | Medication Refill | | 2020 | | [facility] | DO Lucius [address] | | | | | [facility] [address] | [facility] | | | | | [address] [facility] [address] | [address] [place], [place] | | | | | [place], [place] | [id number] | | | | | [address] | | | | | | [phone] | | | +--------+--------+ + + + [...] | | | | | [place] [address] | | | | | | [phone] | | | | | | | | +--------+---------+ + + + documented as of this encounter Visit Diagnoses Not on filedocumented in this encounter"
--- OUTSIDE RECORDS SUMMARY | ~2019-06-30 | XMS | Encounter Summary ---
Demographics + + + | Address | [address] | | | [place] [address] | + + + | Home Phone | | + + + | Preferred Language | Unknown | + + + | Marital Status | | + + + | Restorationist Affiliation | 1041 | + + + | Race | Unknown | + + + | Ethnic Group | Unknown | + + + Author + + + | Author | [facility] | | | and Luisana | + + + | Organization | [facility] | | | [...] Team Providers + +------+ + | Care B2B Sales Professional Name | Role | Phone | + +------+ + | Fabrice Hansen DO | PCP | | + +------+ + Reason for Referral Evaluate & Treat (Emergency) +--------+ + + + + + | Status | Reason | Specialty | Diagnoses / | Referred By | Referred To | | | | | Procedures | Contact | Contact | +--------+ + + + + + | Closed | Specialty | Gastroenterol | Diagnoses | Rey, | [facility], | | | Services | ogy / Liver | Calculus of | Meme Naik, | MD Bacilio | | | Required | and Pancreas | bile duct | CRM DYNAMICS DEVELOPER [address] | [address] | | | | Surgery | with | BLVD | [place] | | | | | cholangitis | [place], [place] | [address] | | | | | and | [address] | Phone: | | | | | obstruction, | Phone: | [phone] | | | | | unspecified | [phone] | Fax: | | | | | cholangitis | Fax: | [phone] | | | | | acuity | [phone] | | | | | | Procedures | | | | | | | Urgent-ERCP, | | | | | | | possible | | | | | | | [facility] urgent, | | | | | | | next week, | | | | | | | [place] | | | +--------+ + + + + + Reason for Visit +--------+ + | Reason | Comments | +--------+ + | Other | Referral to | +--------+ + Encounter Details +--------+ + + + + | Date | Type | Department | Care Team | Description | +--------+ + + + + | 11/03/ | Telephone | [facility] | Gloria Campbell, | Other (Referral to | | 2018 | | GASTROENTEROLOGY | Tax Analyst | ) | | | | [address] [facility] | | | | | | [place], [place] | | | | | | [address] | | | | | | [phone] | | | +--------+ + + + [...] MÉNDEZ | | | | | | [facility] [place] [address] | | | | | | [phone] | | | | | | | | +--------+---------+ + + + + + +--------+ + + | Name | Type | Priori | Associated Diagnoses | Order Schedule | | | | ty | | | + + +--------+ + + | Ambulatory referral | Outpatient | STAT | Calculus of bile | Ordered: 11/03/2018 | | to Gastroenterology | Referral | | duct with | | | | | | cholangitis and | | | | | | obstruction, | | | | | | unspecified | | | | | | cholangitis acuity | | + + +--------+ + + documented as of this encounter Visit Diagnoses + + | Diagnosis | + + | Calculus of bile duct with cholangitis and obstruction, unspecified cholangitis acuity | | - Primary | + + documented in this encounter"
--- OUTSIDE RECORDS SUMMARY | ~2019-06-30 | XMS | Encounter Summary ---
Demographics + + + | Address | [address] | | | [place] [address] | + + + | Home Phone | | + + + | Preferred Language | Unknown | + + + | Marital Status | | + + + | Pentecostal Affiliation | 1041 | + + + [...] Team Providers + +------+ + | Care Camp Advisor Name | Role | Phone | + +------+ + | Fabrice Hansen DO | PCP | | + +------+ + Encounter Details +--------+ + + + + | Date | Type | Department | Care Team | Description | +--------+ + + + + | 04/28/ | Orders Only | [facility] | Fabrice Hansen | | | 2017 | | [address] | DO [address] | | | | | [place], [place] | [facility] | | | | | [address] | [address] [place], [place] | | | | | [phone] | [address] | | | | | | | [...] | | | | | | [address] | | | | | | [place] [address] | | | | | | [phone] | | | | | | | | +--------+---------+ + + + documented as of this encounter Procedures + +--------+ + + + | Procedure Name | Priori | Date/Time | Associated Diagnosis | Comments | | | ty | | | | + +--------+ + + + | THYROID PANEL WITH | Routin | 04/28/2017 | | Results for this | | TSH | e | 11:36 AM | | procedure are in the | | | | PDT | | results section. | + +--------+ + + + documented in this encounter Results Thyroid Panel with TSH (04/28/2017 11:36 AM PDT) + +-------+ + + + | Component | Value | Ref Range | Performed | Pathologist | | | | | At | Signature | + +-------+ + + + | T3 Uptake | 33.5 | 30.0 - 39.0 % | EXTERNAL | | | | | | LAB | | + +-------+ + + + | T4, Total | 7.0 | 4.7 - 11.3 | EXTERNAL | | | | | ug/dL | LAB | | + +-------+ + + + | Free | 2.3 | 1.1 - 4.6 | EXTERNAL | | | Thyroxine | | | LAB | | | Index | | | | | + +-------+ + + + | TSH | 1.980 | 0.450 - 5.100 | EXTERNAL | | | | | u[iU]/mL | LAB | | + +-------+ + + + + + | Specimen | + + | | + + + +---------+ + + | Performing | Address | City/State/Zipcode | Phone Number | | Organization | | | | + +---------+ + + | EXTERNAL LAB | | | | + +---------+ + + documented in this encounter Visit Diagnoses Not on filedocumented in this encounter"
--- OUTSIDE RECORDS SUMMARY | ~2019-06-30 | XMS | Encounter Summary ---
Demographics + + + | Address | [address] | | | [place] [address] | + + + | Home Phone | | + + + | Preferred Language | Unknown | + + + | Marital Status | | + + + | Mosque Affiliation | 1041 | + + + | Race | Unknown | + + + | Ethnic Group | Unknown | + + + Author + + + | Author | [facility] | | | and [place] | + + + | Organization | [facility] | | [...] Team Providers + +------+ + | Care Wind Operations Supervisor Name | Role | Phone | + +------+ + | Fabrice Hansen DO | PCP | | + +------+ + Encounter Details +--------+ + + + + | Date | Type | Department | Care Team | Description | +--------+ + + + + | 09/24/ | Orders Only | [facility] | Erin Limon | Atherosclerotic | | 2018 | | [facility] | [address] | heart disease of | | | | [address] | [address] | creek coronary | | | | [address] [place], [place] | [place] [address] | artery with angina | | | | [address] | [phone] | pectoris (HCC); | | | | [phone] | | Coronary angioplasty | | | | | | status; Old | | | | | | myocardial | | | | | | infarction; Presence | | | | | | of aortocoronary | | | | | | bypass graft; Mixed | | | | | | hyperlipidemia | +--------+ + + + + Social [...] [address] | | | | | | [place] [address] | | | | | | [phone] | | | | | | | | +--------+---------+ + + + + +------+--------+ + + | Name | Type | Priori | Associated Diagnoses | Order Schedule | | | | ty | | | + +------+--------+ + + | Lipid Panel | Lab | Routin | Atherosclerotic | Expected: | | | | e | heart disease of | 03/12/2018, Expires: | | | | | creek coronary | 11/04/2018 | | | | | artery with angina | | | | | | pectoris (HCC) | | | | | | Coronary angioplasty | | | | | | status Old | | | | | | myocardial | | | | | | infarction Presence | | | | | | of aortocoronary | | | | | | bypass graft Mixed | | | | | | hyperlipidemia | | + +------+--------+ + + documented as of this encounter Results Comprehensive Metabolic Panel (12/28/2018 9:33 AM PST) + + + + + + | Component | Value | Ref Range | Performed | Pathologist | | | | | At | Signature | + + + + + + | Na | 140 | 135 - 145 | REFERENCE | [...] 104 | 99 - 109 mmol/L | REFERENCE | | | | | | LAB | | | | | | [facility] | | | | | | [facility] | | + + + + + + | CO2 | 28 | 23 - 32 mmol/L | REFERENCE [...] + + + + | Glucose | 86 | 65 - 99 mg/dL | REFERENCE [...] + + + + | BUN/Creatin | 17 | | REFERENCE | | | ine [...] + + + + | Albumin | 3.9 | 3.3 - 4.8 g/dL | REFERENCE | | | | | | LAB | | | | | | [facility] | | | | | | LABORATORY | | + + + + + + | Globulin | 3.0 | 1.3 - 4.9 g/dL | REFERENCE [...] + + + | ALK PHOS | 113 | 35 - 115 U/L | REFERENCE [...] 23 | 10 - 65 U/L | REFERENCE [...] | | | | | performed at [facility];[address] | | | | | | [facility] | | | | | | vd;[place] [address] | | | | | | | | | | + + + + + + + + | Specimen | + + | Blood | + + + + + + + | Performing | Address | City/State/Zipcode | Phone Number | | Organization | | | | + + + + + | REFERENCE LAB | [address] [place] [address] | [place], [place] | [phone] | | [facility] | [address] | [address] | | | LABORATORY | | | | + + + + + | REFERENCE LAB | [address] [place] [address] | [place], [place] | | | [facility] | [address] 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
--- OUTSIDE RECORDS SUMMARY | ~2019-06-30 | XMS | Clinical Summary ---
Demographics + + + | Address | [address] | | | [place] [address] | + + + | Home Phone | | + + + | Preferred Language | Unknown | + + + | Marital Status | | + + + | Muslim Affiliation | Unknown | + + + | Race | Unknown | + + + | Ethnic Group | Unknown | + + + Author + + + | Author | [facility] (Historical as of | | | 09-25-18) | + + + | Organization | [facility] (Historical as of | | | 09-25-18) | + + + | Address | Unknown | + + + | Phone | Unavailable | + + + Support + + +---------+ + | Name | Relationship | Address | Phone | + + +---------+ + | Loyd Mcnair | ECON | Unknown | | + + +---------+ + | RaynaCecile | ECON | Unknown | | + + +---------+ + Care Team Providers + +------+ + | Care Manufacturing Recruiter Name | Role | Phone | + +------+ + | Fabrice Hansen DO | PP | | + +------+ + Allergies + + + + + + | Active Allergy | Reactions | Severity | Noted | Comments | | | | | Date | | + + + + + + | Varenicline | Agitation | Low | 03/03/19 | Extreme agitation | | | | | 18 | and mood changes and | | | | | | nausea | + + + + + + | Morphine | Agitation, Confusion | High | 09/29/19 | | | | | | 13 | | + + + + + + | Penicillins | Hives | High | 09/29/19 | | | | | | 13 | | + + + + + + | Sulfa Antibiotics | Hives | High | 09/29/19 | | | | | | 13 | | + + + + + + | Bupropion | Hives | High | 03/03/19 | | | | | | 18 | | + + + + + + Current Medications + + +---------+---------+------+------+-------+ | Prescription | Sig. | Disp. | Refills | Star | End | Statu | | | | | | t | Date | s | | | | | | Date | | | + + +---------+---------+------+------+-------+ | aspirin 81 MG | Take 81 mg by mouth | | | | | Activ | | chewable tablet | daily with | | | | | e | | | breakfast. | | | | | | + + +---------+---------+------+------+-------+ | budesonide | Inhale 1 puff into | | | | | Activ | | (PULMICORT) 180 | the lungs 2 (two) | | | | | e | | MCG/ACT inhaler | times daily. | | | | | | + + +---------+---------+------+------+-------+ | Multiple | Take 1 tablet by | | | | | Activ | | Vitamins-Minerals | mouth daily. | | | | | e | | (MULTIVITAMIN WITH | | | | | | | | MINERALS) tablet | | | | | | | + + +---------+---------+------+------+-------+ | methylcellulose, | Take by mouth | | | | | Activ | | laxative, | daily. | | | | | e | | (MIRAFIBER) 500 MG | | | | | | | | tablet | | | | | | | + + +---------+---------+------+------+-------+ | ibuprofen (MOTRIN) | Take 600 mg by mouth | | | | | Activ | | 600 MG tablet | every 6 (six) hours | | | | | e | | | as needed for Pain | | | | | | | | (3 x per week). | | | | | | + + +---------+---------+------+------+-------+ | acetaminophen | Take 500 mg by mouth | | | | | Activ | | (TYLENOL) 500 MG | every 6 (six) hours | | | | | e | | tablet | as needed for Pain. | | | | | | + + +---------+---------+------+------+-------+ | nitroGLYCERIN | Place 1 tablet under | 25 | 3 | 10/3 | | Activ | | (NITROSTAT) 0.4 MG | the tongue every 5 | tablet | | 0/20 | | e | | SL tablet | (five) minutes as | | | 18 | | | | | needed for Chest | | | | | | | | pain. | | | | | | + + +---------+---------+------+------+-------+ | traZODone | Take 1 tablet by | 90 | 3 | 10/3 | | Activ | | (DESYREL) 150 MG | mouth every evening. | tablet | | 0/20 | | e | | tablet | | | | 18 | | | + + +---------+---------+------+------+-------+ | atorvastatin | Take 1 tablet by | 90 | 3 | 01/2 | | Activ | | (LIPITOR) 40 MG | mouth nightly. | tablet | | 5/20 | | e | | tabletIndications: | | | | 19 | | | | Annual physical | | | | | | | | exam, Coronary | | | | | | | | artery disease | | | | | | | | involving [place] | | | | | | | | coronary artery of | | | | | | | | [place] heart with | | | | | | | | angina pectoris | | | | | | | | ([facility]), History of | | | | | | | | PTCA, Mixed | | | | | | | | hyperlipidemia, | | | | | | | | Ascending aortic | | | | | | | | aneurysm (HCC), Hx | | | | | | | | of CABG | | | | | | | + + +---------+---------+------+------+-------+ | venlafaxine | Take 3 tablets by | 360 | 2 | 02/2 | | Activ | | (EFFEXOR) 75 MG | mouth in the morning | tablet | | 8/20 | | e | | tablet | and 1 tablet in the | | | 19 | | | | | evening | | | | | | + + +---------+---------+------+------+-------+ | tiotropium | Inhale 1 capsule | 30 | 12 | 04/ | | Activ | | (SPIRIVA HANDIHALER) | into the lungs | capsule | | 6/20 | | e | | 18 MCG inhalation | daily. | | | 19 | | | | capsule | | | | | | | + + +---------+---------+------+------+-------+ | albuterol | Inhale 2 puffs into | 1 | 2 | 04/ | | Activ | | (PROVENTIL | the lungs every 4 | Inhaler | | /20 | | e | | HFA;VENTOLIN HFA) | (four) hours as | | | 19 | | | | 108 (90 Base) | needed. | | | | | | | MCG/ACT inhaler | | | | | | | + + +---------+---------+------+------+-------+ | fluticasone | 1 spray by Each Nare | | | | | Activ | | (FLONASE) 50 MCG/ACT | route daily. | | | | | e | | nasal | | | | | | | + + +---------+---------+------+------+-------+ | lisinopril | Take 1 tablet by | 90 | 3 | 04/2 | | Activ | | (ZESTRIL) 10 MG | mouth daily. | tablet | | 3/20 | | e | | tablet | | | | 19 | | | + + +---------+---------+------+------+-------+ | metoprolol | Take 1 tablet by | 90 | 3 | 04/2 | | Activ | | (TOPROL-XL) 25 MG 24 | mouth daily. | tablet | | 3/20 | | e | | hr tablet | | | | 19 | | | + + +---------+---------+------+------+-------+ | levothyroxine | Take 1 tablet by | 90 | 0 | 08/0 | | Activ | | (SYNTHROID) 50 MCG | mouth every morning | tablet | | 1/20 | | e | | tablet | before breakfast. | | | 19 | | | + + +---------+---------+------+------+-------+ Active Problems + + + | Problem | Noted Date | + + + | Left wrist sprain | 08/03/2017 | + + + | Pharyngoesophageal dysphagia | 06/16/2017 | + + + + + | Overview: Added automatically from request for surgery [id number] | + + + + + | Screening for colorectal cancer | 06/16/2017 | + + + + + | Overview: Added automatically from request for surgery [id number] | + + + + + | Change in bowel movement | 06/16/2017 | + + + + + | Overview: Added automatically from request for surgery [id number] | + + + + + | GERD | 10/18/2012 | + + + | Depression | 10/18/2012 | + + + | HLD (hyperlipidemia) | 10/18/2012 | + + + | Smoker | 10/18/2012 | + + + | HTN (hypertension) | 10/18/2012 | + + + | COPD | 10/18/2012 | + + + | CAD (coronary artery disease) | 10/18/2012 | + + + | Osteoarthritis | 10/18/2012 | + + + | History of RI | 10/18/2012 | + + + | Carpal tunnel syndrome of right wrist | 09/02/2012 | + + + Immunizations + + + + | Name | Dates Previously Given | Next Due | + + + + | Pneumococcal | 02/24/2018 | | | Conjugate 13-valent | | | + + + + Family History + + +------+ + | Medical History | Relation | Name | Comments | + + +------+ + | Colon cancer | Brother | | | + + +------+ + | Colon polyps | Brother | | | + + +------+ + | Cancer | Cousin | | | + + +------+ + | Heart disease | Cousin | | | + + +------+ + | Hypertension | Cousin | | | + + +------+ + | Diabetes | Cousin | | | + + +------+ + | Colon polyps | Father | | | + + +------+ + | Colon polyps | Sister | | | + + +------+ + + +------+--------+ + | Relation | Name | Status | Comments | + +------+--------+ + | Brother | | | | + +------+--------+ + | Cousin | | | | + +------+--------+ + | Cousin | | | | + +------+--------+ + | Cousin | | | | + +------+--------+ + | Cousin | | | | + +------+--------+ + | Father | | | | + +------+--------+ + | Sister | | | | + +------+--------+ + Social History + +-------+ +--------+------+ | Tobacco Use | Types | Packs/Day | Years | Date | | | | | Used | | + +-------+ +--------+------+ | Current Every Day | | 1 | 20 | | | Smoker | | | | | + +-------+ +--------+------+ + +---+---+---+ | Smokeless Tobacco: | | | | | Never Used | | | | + +---+---+---+ + + +---------+ + | Alcohol Use | Drinks/We | oz/Week | Comments | | | ek | | | + + +---------+ + | Yes | 3 | 1.8 | Weekly | | | Glasses | | | | | of wine | | | + + +---------+ + + + + | Sex Assigned at | Date Recorded | | | | + + + | Not on file | | + + + Last Filed Vital Signs + + + + | Vital Sign | Reading | Time Taken | + + + + | Blood Pressure | 126/80 | 07/15/2018 8:42 AM PDT | + + + + | Pulse | 73 | 07/15/2018 8:42 AM PDT | + + + + | Temperature | 35.9 C (96.6 F) | 08/03/2017 10:40 AM PDT | + + + + | Respiratory Rate | 18 | 11/04/2017 9:12 AM PDT | + + + + | Oxygen Saturation | 100% | 07/15/2018 8:42 AM PDT | + + + + | Inhaled Oxygen | - | - | | Concentration | | | + + + + | Weight | 63.7 kg (140 lb 6.4 | 07/15/2018 8:42 AM PDT | | | oz) | | + + + + | Height | 162.6 cm (5' 4") | 07/15/2018 8:42 AM PDT | + + + + | Body Mass Index | 24.1 | 07/15/2018 8:42 AM PDT | + + + + Plan of Treatment + + + + + | Health Maintenance | Due Date | Last Done | Comments | + + + + + | Vaccine: | | | | | Dtap/Tdap/Td (1 - | 6 | | | | Tdap) | | | | + + + + + | Vaccine: Zoster (1 | | | | | of 2) | 7 | | | + + + + + | DEXA SCAN SCREENING | | | | | | 2 | | | + + + + + | Vaccine: | | 02/24/2018 | | | Pneumococcal 65+ | 0 | | | | Low/Medium Risk (2 | | | | | of 2 - PPSV23) | | | | + + + + + | Vaccine: Influenza | | | | | (Season Ended) | 0 | | | + + + + + | Breast Cancer | | 10/27/2017 | | | Screening | 0 | | | | (Mammogram) | | | | + + + + + | Colon Cancer | | 08/03/2017 | | | Screening | 8 | | | | (Colonoscopy) | | | | + + + + + Results Not on filefrom Last 3 Months Insurance + +--------+ +------+-------+ + | Payer | Benefi | Subscriber | Type | Phone | Address | | | t Plan | ID | | | | | | / | | | | | | | Group | | | | | + +--------+ +------+-------+ + | MEDICARE | MEDICA | [id number] | | | [address] | | | RE | | | | [place] [address] | | | IP-OP | | | | | + +--------+ +------+-------+ + | [employer] | UNITED | [id number] | | | | | | | | | | | | | HEALTH | | | | | | | CARE - | | | | | | | AARP | | | | | + +--------+ +------+-------+ + + +--------+ +--------+ + + | Guarantor Name | Accoun | Relation to | Date | Phone | Billing Address | | | t Type | Patient | of | | | | | | | | | | + +--------+ +--------+ + + | SHARON LEMUS | Person | Self [birth year] Home: | [address] | | | maryanne/Timothy | | 1946 | [phone] [place] | | | [place] | | | [address] | [phone] | + +--------+ +--------+ + +
--- OUTSIDE RECORDS SUMMARY | ~2019-06-30 | XMS | Encounter Summary ---
Demographics + + + | Address | [address] | | | [place] [address] | + + + | Home Phone [...] Team Providers + +------+ + | Care Landscaper Name | Role | Phone | + [...] | +--------+ + + + + | 12/09/ | Telephone | [facility] | Bacilio Thompson MD | Abdominal Pain | | 2019 | | and Pancreas GI | [address] [place] | | | | | [facility] [address] | [address] [place] | | | | | [address] | [id number] | | | | | [place] | | | | | | [address] | | | | | | [phone] | | | +--------+ + + + [...] [address] | | | | | | [place] [address] | | | | | | [phone] | | | | | | | | +--------+---------+ + + + documented as of this encounter Visit Diagnoses Not on filedocumented in this encounter"
--- OUTSIDE RECORDS SUMMARY | ~2019-06-30 | XMS | Encounter Summary ---
Demographics + + + | Address | [address] | | | [place] [address] | + + + | Home Phone | | + + + | Preferred Language | Unknown | + + + | Marital Status | | + + + | Confucianism Affiliation | 1041 | + + + | Race | Unknown | + + + | Ethnic Group | Unknown | + + + Author + + + | Author | [facility] | | | and [place]ana | + + + | Organization | [facility] | | [...] Team Providers + +------+ + | Care Wood Box Maker Name | Role | Phone | + [...] + + | 11/10/ | Telephone | [facility] | Kasia Levin RN | [facility] | | 2019 | | [facility] | | [facility] [address] | | | | | | [address] [facility] [address] | | | | | | [place], [place] | | | | | | [address] | | | | | | [phone] | | | +--------+ + + + [...] [address] | | | | | | [place] [address] | | | | | | [phone] | | | | | | | | +--------+---------+ + + + documented as of this encounter Visit Diagnoses Not on filedocumented in this encounter"
--- OUTSIDE RECORDS SUMMARY | ~2019-06-30 | XMS | Encounter Summary ---
Demographics + + + | Address | [address] | | | [place] [address] | + + + | Home Phone | | + + + | Preferred Language | Unknown | + + + | Marital Status | | + + + | [employer]aritan Affiliation | 1041 | + + + | Race | Unknown | + + + | Ethnic Group | Unknown | + + + Author + + + | Author | [facility] | | | and Luisana | + + + | Organization | [facility] | | [...] Team Providers + +------+ + | Care Beam Sealer Name | Role | Phone | + +------+ + | Fabrice Hansen DO | PCP | | + +------+ + Encounter Details +--------+ + + + + | Date | Type | Department | Care Team | Description | +--------+ + + + + | 06/22/ | Orders Only | [facility] | Marshall Gutierrez, | | | 2018 | | CARDIOLOGY SACHIN | [address] | | | | | [address] | [place] [address] | | | | | [facility] [place] | [phone] | | | | | [address] | | | | | | [phone] | | | +--------+ + + + [...] MÉNDEZ | | | | | | [place] [address] | | | | | | [phone] | | | | | | | | +--------+---------+ + + + documented as of this encounter Procedures + +--------+ + + + | Procedure Name | Priori | Date/Time | Associated Diagnosis | Comments | | | ty | | | | + +--------+ + + + | ECHO COMPLETE | Routin | 06/22/2018 | | Results for this | | | e | 9:47 AM | | procedure are in the | | | | PDT | | results section. | + +--------+ + + + documented in this encounter Results ECHO Complete (06/22/2018 9:47 AM PDT) + + | Specimen | + + | | + + + + + | Impressions | Performed At | + + + | 1. This was a technically difficult study with suboptimal views. 2. | | | Overall left ventricular systolic function is normal with, an EF | | | between 55 - 60 %. 3. There is mild aortic regurgitation. 4. The | | | ascending aorta is dilated measuring up to 4.1cm. | | + + + + + + | Narrative | Performed At | + + + | Patient Name: SHARON LEMUS Date of : 1945 | | | Performing Physician: Marshall Gutierrez MD, | | | FACC, FACP, FASNC | | | | | | INDICATIONS ASCENDING AORTIC ANEURYSM, HX OF PA, CABG | | | CONCLUSIONS 1. This was a technically difficult study | | | with suboptimal views. 2. Overall left ventricular systolic function | | | is normal with, an EF between 55 - 60 %. 3. There is mild aortic | | | regurgitation. 4. The ascending aorta is dilated measuring up to | | | 4.1cm. FINDINGS -------- ECG rhythm: Sinus rhythm. ECG rhythm: | | | Resting bradycardia (HR<60bpm). Study: A 2-dimensional transthoracic | | | echocardiogram with m-mode, spectral and color flow Doppler was | | | perfomed. Study: This was a technically difficult study with | | | suboptimal views. Left Ventricle: Overall left ventricular systolic | | | function is normal with, an EF between 55 - 60 %. Left Ventricle: The | | | left ventricle cavity size is normal. Left Ventricle: Left | | | ventricular wall thickness is normal. Left Ventricle: The diastolic | | | filling pattern is normal for the age of the patient. Right | | | Ventricle: The right ventricle is normal in size and function. Left | | | Atrium: The left atrium is normal in size. Right Atrium: The right | | | atrium is normal in size. Aortic Valve: The aortic valve is | | | trileaflet. Aortic Valve: There is mild aortic regurgitation. Aortic | | | Valve: The aortic valve is mildly calcified. Aortic Valve: There is | | | no evidence of aortic stenosis. Mitral Valve: Normal appearing mitral | | | valve. Mitral Valve: Mild mitral regurgitation is present. | | | Tricuspid Valve: The tricuspid valve appears structurally normal. | | | Tricuspid Valve: Mild tricuspid regurgitation present. Tricuspid | | | Valve: The right ventricular systolic pressure (pulmonary artery | | | systolic pressure), as measured by Doppler, is 25.55mmHg. Pulmonic | | | Valve: Pulmonic valve appears structurally normal. Pulmonic Valve: | | | Mild pulmonic regurgitation. Pericardium: There is no pericardial | | | effusion. IVC/Hepatic Veins: The inferior vena cava is normal in size | | | and collapses > 50 % with sniff, indicating normal central venous | | | pressures. Aorta: The ascending aorta is dilated measuring up to | | | 4.1cm. Mass: No mass visualized Thrombus: No clot visualized | | | Thrombus: No vegetation visualized. Septum: No ASD observed. Septum: | | | No VSD observed. MEASUREMENTS Ao asc: 4.13 cm | | | Ao sinus: 3.[address] junct: 2.83 cm IVC: 1.34 cm | | | EDV(Teich): 134.19 ml IVSd: 0.86 cm LVIDd: 5.28 cm LVPWd: | | | 0.81 cm LVOT Area: 3.30 cm2 LVOT Diam: 2.05 cm %FS: | | | 32.04 % EF(Teich): 59.75 % ESV(Teich): 54.01 ml LVIDs: | | | 3.58 cm SV(Teich): 80.18 ml RV Major: 6.04 cm RV Minor: | | | 3.52 cm LVEF MOD A2C: 62.63 % SV MOD A2C: 66.71 ml LVEF MOD | | | A4C: 49.65 % SV MOD A4C: 55.68 ml EF Biplane: 56.06 % | | | LVEDV MOD BP: 111.26 ml LVESV MOD BP: 48.88 ml LVEDV MOD A2C: | | | 106.51 ml LVLd A2C: 7.58 cm LVEDV MOD A4C: 112.14 ml LVLd | | | A4C: 7.29 cm LVESV MOD A2C: 39.79 ml LVLs A2C: 6.46 cm | | | LVESV MOD A4C: 56.45 ml LVLs A4C: 6.92 cm LAESV(A-L): 47.99 | | | ml LAESV Index (A-L): 28.74 ml/m2 LAAs A2C: 15.98 cm2 LAESV | | | A-L A2C: 46.36 ml LALs A2C: 4.67 cm LAAs A4C: 14.96 cm2 | | | LAESV A-L A4C: 44.93 ml LALs A4C: 4.23 cm RAAs: 13.33 cm2 | | | RAESV A-L: 34.05 ml RAESV MOD: 34.09 ml RALs: 4.43 cm | | | TAPSE: 2.11 cm AV maxP.46 mmHg AV meanP.47 mmHg AV | | | Vmax: 1.45 m/s AV Vmean: 0.98 m/s AV VTI: 32.27 cm AVIVA | | | Vmax: 2.21 cm2 AVIVA (VTI): 2.35 cm2 AVAI (Vmax): 0.00 cm2/m2 | | | AVAI (VTI): 0.00 cm2/m2 LVOT maxP.78 mmHg LVOT meanPG: | | | 1.90 mmHg LVSI Dopp: 45.44 ml/m2 LVSV Dopp: 75.89 ml LVOT | | | Vmax: 0.97 m/s LVOT Vmean: 0.64 m/s LVOT VTI: 22.96 cm MV | | | A Zen: 0.71 m/s MV [place]: 2.32 m/s2 MV DecT: 268.80 ms | | | MV E Zen: 0.62 m/s MV E/A Ratio: 0.86 MV PHT: 77.95 ms | | | MVA By PHT: 2.82 cm2 Septal e': 0.05 m/s Septal E/e': 10.83 | | | Lateral e': 0.05 m/s Lateral E/e': 10.83 PV maxP.24 | | | mmHg PV Vmax: 1.34 m/s RAP: 5 mmHg RVSP: 25.54 mmHg TR | | | maxP.54 mmHg TR Vmax: 2.26 m/s RV s': 0.07 m/s | | | Merchandise Presentation Associate: DBS Authenticated by: Marshall Gutierrez MD, FACC, FACP, | | | FASND Report Date/Time: -- 84_[id number]:44:17 | | + + + + + | Procedure Note | + + | Jamie Kowalski Conversion - 09/30/2018 1:07 PM PDT Patient Name: Kailash LEMUS of | | : 1945 Performing Physician: Marshall Gutierrez MD, [facility], | | FACP, | | FASNC INDICATIONS--------- | | --ASCENDING AORTIC ANEURYSM, HX OF PA, CABG CONCLUSIONS 1. This was a | | technically difficult study with suboptimal views.2. Overall left ventricular systolic | | function is normal with, an EF between 55 - 60 %.3. There is mild aortic | | regurgitation.4. The ascending aorta is dilated measuring up to 4.1cm. | | FINDINGS--------ECG rhythm: Sinus rhythm.ECG rhythm: Resting bradycardia | | (HR<60bpm).Study: A 2-dimensional transthoracic echocardiogram with m-mode, spectral and | | color flow Doppler was perfomed.Study: This was a technically difficult study with | | suboptimal views.Left Ventricle: Overall left ventricular systolic function is normal | | with, an EF between 55 - 60 %.Left Ventricle: The left ventricle cavity size is | | normal.Left Ventricle: Left ventricular wall thickness is normal.Left Ventricle: The | | diastolic filling pattern is normal for the age of the patient.Right Ventricle: The | | right ventricle is normal in size and function.Left Atrium: The left atrium is normal in | | size.Right Atrium: The right atrium is normal in size.Aortic Valve: The aortic valve is | | trileaflet.Aortic Valve: There is mild aortic regurgitation.Aortic Valve: The aortic | | valve is mildly calcified.Aortic Valve: There is no evidence of aortic stenosis.Mitral | | Valve: Normal appearing mitral valve.Mitral Valve: Mild mitral regurgitation is | | present.Tricuspid Valve: The tricuspid valve appears structurally normal.Tricuspid | | Valve: Mild tricuspid regurgitation present.Tricuspid Valve: The right ventricular | | systolic pressure (pulmonary artery systolic pressure), as measured by Doppler, is | | 25.55mmHg.Pulmonic Valve: Pulmonic valve appears structurally normal.Pulmonic Valve: | | Mild pulmonic regurgitation.Pericardium: There is no pericardial effusion.IVC/Hepatic | | Veins: The inferior vena cava is normal in size and collapses > 50 % with sniff, | | indicating normal central venous pressures.Aorta: The ascending aorta is dilated | | measuring up to 4.1cm.Mass: No mass visualizedThrombus: No clot visualizedThrombus: No | | vegetation visualized.Septum: No ASD observed.Septum: No VSD observed. | | MEASUREMENTS Ao asc: 4.13 cmAo sinus: 3.[address] junct: 2.83 cmIVC: | | 1.34 cmEDV(Teich): 134.19 mlIVSd: 0.86 cmLVIDd: 5.28 cmLVPWd: 0.81 cmLVOT | | Area: 3.30 [id number] Diam: 2.05 cm%FS: 32.04 %EF(Teich): 59.75 %ESV(Teich): | | 54.01 mlLVIDs: 3.58 cmSV(Teich): 80.18 mlRV Major: 6.04 cmRV Minor: 3.52 cmLVEF | | MOD A2C: 62.63 %SV MOD A2C: 66.71 mlLVEF MOD A4C: 49.65 %SV MOD A4C: 55.68 mlEF | | Biplane: 56.06 %LVEDV MOD BP: 111.26 mlLVESV MOD BP: 48.88 mlLVEDV MOD A2C: | | 106.51 mlLVLd A2C: 7.58 cmLVEDV MOD A4C: 112.14 mlLVLd A4C: 7.29 cmLVESV MOD A2C: | | 39.79 mlLVLs A2C: 6.46 cmLVESV MOD A4C: 56.45 mlLVLs A4C: 6.92 cmLAESV(A-L): | | 47.99 mlLAESV Index (A-L): 28.74 ml/m2LAAs A2C: 15.98 [id number] A-L A2C: 46.36 | | mlLALs A2C: 4.67 cmLAAs A4C: 14.96 [id number] A-L A4C: 44.93 mlLALs A4C: 4.23 | | cmRAAs: 13.33 [id number] A-L: 34.05 mlRAESV MOD: 34.09 mlRALs: 4.43 cmTAPSE: | | 2.11 cmAV maxP.46 mmHgAV meanP.47 mmHgAV Vmax: 1.45 m/Yamila Vmean: 0.98 | | m/Yamila VTI: 32.27 cmAVA Vmax: 2.21 cm2AVA (VTI): 2.35 rv3YARS (Vmax): 0.00 | | cm2/m2AVAI (VTI): 0.00 cm2/m2LVOT maxP.78 mmHgLVOT meanP.90 mmHgLVSI Dopp: | | 45.44 ml/m2LVSV Dopp: 75.89 mlLVOT Vmax: 0.97 m/sLVOT Vmean: 0.64 m/sLVOT VTI: | | 22.96 cmMV A Zen: 0.71 m/sMV [place]: 2.32 m/s2MV DecT: 268.80 msMV E Ezn: | | 0.62 m/sMV E/A Ratio: 0.86MV PHT: 77.95 msMVA By PHT: 2.82 [id number] e': 0.05 | | m/sSeptal E/e': 10.83Lateral e': 0.05 m/sLateral E/e': 10.83PV maxP.24 | | mmHgPV Vmax: 1.34 m/sRAP: 5 mmHgRVSP: 25.54 mmHgTR maxP.54 mmHgTR Vmax: | | 2.26 m/sRV s': 0.07 m/s Merchandise Presentation Associate: DBSAuthenticated by: Marshall Gutierrez MD, FACC, | | FACP, FASNCReport Date/Time: -- [id number]:44:17 IMPRESSION: 1. This was a | | technically difficult study with suboptimal views.2. Overall left ventricular systolic | | function is normal with, an EF between 55 - 60 %.3. There is mild aortic | | regurgitation.4. The ascending aorta is dilated measuring up to 4.1cm. | | | |Ao asc: 4.13 cm | |Ao sinus: 3.16 cm | |Ao st junct: 2.83 cm | |IVC: 1.34 cm | |EDV(Teich): 134.19 ml | |IVSd: 0.86 cm | |LVIDd: 5.28 cm | |LVPWd: 0.81 cm | |LVOT Area: 3.30 cm2 | |LVOT Diam: 2.05 cm | |%FS: 32.04 % | |EF(Teich): 59.75 % | |ESV(Teich): 54.01 ml | |LVIDs: 3.58 cm | |SV(Teich): 80.18 ml | |RV Major: 6.04 cm | |RV Minor: 3.52 cm | |LVEF MOD A2C: 62.63 % | |SV MOD A2C: 66.71 ml | |LVEF MOD A4C: 49.65 % | |SV MOD A4C: 55.68 ml | |EF Biplane: 56.06 % | |LVEDV MOD BP: 111.26 ml | |LVESV MOD BP: 48.88 ml | |LVEDV MOD A2C: 106.51 ml | |LVLd A2C: 7.58 cm | |LVEDV MOD A4C: 112.14 ml | |LVLd A4C: 7.29 cm | |LVESV MOD A2C: 39.79 ml | |LVLs A2C: 6.46 cm | |LVESV MOD A4C: 56.45 ml | |LVLs A4C: 6.92 cm | |LAESV(A-L): 47.99 ml | |LAESV Index (A-L): 28.74 ml/m2 | |LAAs A2C: 15.98 cm2 | |LAESV A-L A2C: 46.36 ml | |LALs A2C: 4.67 cm | |LAAs A4C: 14.96 cm2 | |LAESV A-L A4C: 44.93 ml | |LALs A4C: 4.23 cm | |RAAs: 13.33 cm2 | |RAESV A-L: 34.05 ml | |RAESV MOD: 34.09 ml | |RALs: 4.43 cm | |TAPSE: 2.11 cm | |AV maxP.46 mmHg | |AV meanP.47 mmHg | |AV Vmax: 1.45 m/s | |AV Vmean: 0.98 m/s | |AV VTI: 32.27 cm | |AVIVA Vmax: 2.21 cm2 | |AVIVA (VTI): 2.35 cm2 | |AVAI (Vmax): 0.00 cm2/m2 | |AVAI (VTI): 0.00 cm2/m2 | |LVOT maxP.78 mmHg | |LVOT meanP.90 mmHg | |LVSI Dopp: 45.44 ml/m2 | |LVSV Dopp: 75.89 ml | |LVOT Vmax: 0.97 m/s | |LVOT Vmean: 0.64 m/s | |LVOT VTI: 22.96 cm | |MV A Zen: 0.71 m/s | |MV [place]: 2.32 m/s2 | |MV DecT: 268.80 ms | |MV E Zen: 0.62 m/s | |MV E/A Ratio: 0.86 | |MV PHT: 77.95 ms | |MVA By PHT: 2.82 cm2 | |Septal e': 0.05 m/s | |Septal E/e': 10.83 | |Lateral e': 0.05 m/s | |Lateral E/e': 10.83 | |PV maxP.24 mmHg | |PV Vmax: 1.34 m/s | |RAP: 5 mmHg | |RVSP: 25.54 mmHg | |TR maxP.54 mmHg | |TR Vmax: 2.26 m/s | |RV s': 0.07 m/s | | | |Merchandise Presentation Associate: DBS | |Authenticated by: Marshall Gutierrez MD, FACC, FACP, FASNC | |Report Date/Time: -- [id number]_[id number]:44:17 | | | |IMPRESSION: | |1. This was a technically difficult study with suboptimal views. | |2. Overall left ventricular systolic function is normal with, an EF between 55 - 60 %. | |3. There is mild aortic regurgitation. | |4. The ascending aorta is dilated measuring up to 4.1cm. | + + documented in this encounter Visit Diagnoses Not on filedocumented in this encounter"
--- OUTSIDE RECORDS SUMMARY | ~2019-06-30 | XMS | Encounter Summary ---
Demographics + + + | Address | [address] | | | [place] [address] | + + + | Home Phone | | + + + | Preferred Language | Unknown | + + + | Marital Status | | + + + | Baptism Affiliation | 1041 | + + + | Race | Unknown | + + + | Ethnic Group | Unknown | + + + Author + + + | Author | [facility] | | | and Luisana | + + + | Organization | [facility] | | | [...] Team Providers + +------+ + | Care Mailing Clerk Name | Role | Phone | [...] Provider Unknown | | | | | [place], [place] | [phone] | | | | | [address] | | | | | | [phone] | | | +--------+ + + + [...] | | | | | [place] [address] | | | | | | [phone] | | | | | | | | +--------+---------+ + + + documented as of this encounter Visit Diagnoses Not on filedocumented in this encounter"
--- OUTSIDE RECORDS SUMMARY | ~2019-06-30 | XMS | Encounter Summary ---
Demographics + + + | Address | [address] | | | [place] [address] | + + + | Home Phone | | + + + | Preferred Language | Unknown | + + + | Marital Status | | + + + | Latter-Day Affiliation | 1041 | + + + | Race | Unknown | + + + | Ethnic Group | Unknown | + + + Author + + + | Author | [facility] | | | and [place] | + + + | Organization | [facility] | | | [...] Team Providers + +------+ + | Care Stopper Maker Helper Name | Role | Phone | + +------+ + | Fabrice Hansen DO | PCP | | + +------+ + Reason for Visit + + + | Reason | Comments | + + + | Abdominal Pain | "gallstones" "my doctor told me to come if the pain got worse" | + + + Encounter Details +--------+ + + + + | Date | Type | Department | Care Team | Description | +--------+ + + + + | 12/04/ | Emergency | [facility] | Jeremi Miramontes MD | RUQ abdominal pain | | 2019 | | MEDICAL CENTER | [address] | (Primary Dx); | | | | EMERGENCY CENTER | [place] [address] | Intrahepatic bile | | | | [address] | [phone] | duct dilation; | | | | [place], [place] | | Choledocholithiasis | | | | [address] | | | | | | [phone] | | | +--------+ + + + [...] + + + | Blood Pressure | 138/76 | 12/04/2018 5:09 PM | | | | | PDT | | + + + + + | Pulse | 76 | 12/04/2018 5:09 PM | | | | | PDT | | + + + + + | Temperature | 36.6 C (97.8 F) | 12/04/2018 5:09 PM | | | | | PDT | | + + + + + | Respiratory Rate | 16 | 12/04/2018 5:09 PM | | | | | PDT | | + + + + + | Oxygen Saturation | 99% | 12/04/2018 5:09 PM | | | | | PDT | | + + + + + | Inhaled Oxygen | - | - | | | Concentration | | | | + + + + + | Weight | 61.7 kg (136 lb 0.4 | 12/04/2018 10:55 AM | | | | oz) | PDT | | + + + + + | Height | - | - | | + + + + + | Body Mass Index | 23.35 | 11/24/2018 10:46 AM | | | | | PDT | | + + + + + documented in this encounter Discharge Instructions AttachmentsThe following attachments cannot be sent through Care Everywhere.Abdominal Pain, Unknown Cause, (Female) (Portuguese)documented in this encounter Medications at Time of [...] 75-150 mg by | | 0 | // | | | (DESYREL) 150 MG | mouth nightly. | | | 19 | | | tablet | Mostly takes 75 mg | | | | | + + + +---------+ + + | triamcinolone | Apply 0.025 Units | | 0 | /30/20 | | | (KENALOG) 0.025% | topically [...] | | Take 1 tablet by | 15 | 0 | 12/05/19 | | | HYDROcodone-acetamin | mouth every [...] + +---------+ + + | pantoprazole | TAKE ONE TABLET BY | 30 | 0 | 11/26/19 | | | (PROTONIX) 40 mg | MOUTH ONE TIME DAILY | tablet | | 19 | 9 [...] MÉNDEZ | | | | | | [place] [address] | | | | | | [phone] | | | | | | | | +--------+---------+ + + + + +------+--------+ + + | Name | Type | Priori | Associated Diagnoses | Date/Time | | | | ty | | | + +------+--------+ + + | ED INFORMATION | NATASHA | Routin | | 12/04/2018 10:53 AM | | EXCHANGE | | e | | PDT | + +------+--------+ + + documented as of this encounter Procedures + +--------+ + + + | Procedure Name | Priori | Date/Time | Associated Diagnosis | Comments | | | ty | | | | + +--------+ + + + | MRI ABDOMEN WO | CARYN | 12/04/2018 | | Results for this | | CONTRAST MRCP | | 2:35 PM | | procedure are in the | | | | PDT | | results section. | + +--------+ + + + | CULTURE, BLOOD | STAT | 12/04/2018 | | Results for this | | | | 12:22 PM | | procedure are in the | | | | PDT | | results section. | + +--------+ + + + | LACTIC ACID | STAT | 12/04/2018 | | Results for this | | | | 12:17 PM | | procedure are in the | | | | PDT | | results section. | + +--------+ + + + | CULTURE, BLOOD | STAT | 12/04/2018 | | Results for this | | | | 12:01 PM | | procedure are in the | | | | PDT | | results section. | + +--------+ + + + | PROTIME INR | STAT | 12/04/2018 | | Results for this | | | | 12:01 PM | | procedure are in the | | | | PDT | | results section. | + +--------+ + + + | CBC WITH | STAT | 12/04/2018 | | Results for this | | DIFFERENTIAL | | 12:01 PM | | procedure are in the | | | | PDT | | results section. | + +--------+ + + + | LIPASE | STAT | 12/04/2018 | | Results for this | | | | 12:01 PM | | procedure are in the | | | | PDT | | results section. | + +--------+ + + + | COMPREHENSIVE | STAT | 12/04/2018 | | Results for this | | METABOLIC PANEL | | 12:01 PM | | procedure are in the | | | | PDT | | results section. | + +--------+ + + + | ED INFORMATION | Routin | 12/04/2018 | | | | EXCHANGE | e | 10:53 AM | | | | | | PDT | | | + +--------+ + + + +---+--------+ | | | | | Proced | | | ure | | | Note - | | | Dex, | | | Lab In | | | | | | Hlseve | | | n - | | | | | | 2018 | | | 10:54 | | | AM PDT | | | | | | Format | | | ting | | | of | | | this | | | note | | | might | | | be | | | differ | | | ent | | | from | | | the | | | origin | | | al.COL | | | LECTIV | | | E?NOTI | | | FICATI | | | ON?10/ | | | / | | | 9 | | | 10:52? | | | LAFFER | | | TY, | | | PACHECO | | | A?MRN: | | | | | | [id number] | | | [id number] | | | riteri | | | a Met | | | 10 in | | | | | | 12Secu | | | rity | | | and | | | Safety | | | No | | | recent | | | | | | Securi | | | ty | | | Events | | | | | | curren | | | tly on | | | | | | fileED | | | Care | | | Guidel | | | inesTh | | | ere | | | are | | | curren | | | tly no | | | ED | | | Care | | | Guidel | | | jeannine | | | for | | | this | | | patien | | | t. | | | Please | | | check | | | your | | | facili | | | ty's | | | medica | | | l | | | record | | | s | | | system | | | .Presc | | | riptio | | | n Drug | | | | | | Report | | | (12 | | | Mo.)PD | | | MP | | | query | | | found | | | no | | | report | | | .E.D. | | | Visit | | | Count | | | (12 | | | mo.)Fa | | | cility | | | | | | Visits | | | Low | | | Acuity | | | | | | Provid | | | ence | | | [facility] | | | e | | | Hospit | | | al 10 | | | 0 | | | [facility] | | | | | | [facility] | | | al | | | Medica | | | l | | | Center | | | 2 0 | | | Total | | | 12 0 | | | Note: | | | Visits | | | | | | indica | | | te | | | total | | | known | | | visits | | | . | | | Medica | | | id Low | | | | | | Acuity | | | Dx | | | are | | | the | | | number | | | of | | | primar | | | y | | | diagno | | | ses on | | | the | | | Medica | | | id's | | | Low | | | Acuity | | | dx | | | list. | | | | | | Recent | | | | | | Emerge | | | ncy | | | Depart | | | ment | | | Visit | | | Summar | | | yShowi | | | ng 10 | | | most | | | recent | | | | | | visits | | | out | | | of 15 | | | in the | | | past | | | 12 | | | months | | | Date | | | Facili | | | ty | | | City | | | State | | | Type | | | Diagno | | | ses or | | | Chief | | | | | | Compla | | | int | | | Oct | | | 26, | | | 2019 | | | [facility] | | | | | | [facility] | | | al | | | [facility] | | | [place] | | | [place] | | | Emerge | | | ncy | | | Oct 8, | | | 2019 | | | [facility] | | | | | | [facility] | | | al | | | [facility] | | | [place] | | | [place] | | | Emerge | | | ncy | | | | | | Post-o | | | p | | | Proble | | | m | | | Abdomi | | | nal | | | Pain | | | | | | Other | | | acute | | | postpr | | | ocedur | | | al | | | pain | | | Mar | | | 16, | | | 2019 | | | Provid | | | ence | | | [facility] | | | e [facility] | | | [place] | | | [place] | | | Emerge | | | ncy | | | Mar | | | 14, | | | 2019 | | | Provid | | | ence | | | [facility] | | | e H. | | | [place] | | | [place] | | | Emerge | | | ncy | | | | | | Dizzin | | | ess | | | | | | Syncop | | | e | | | Syncop | | | e and | | | collap | | | se | | | Mar | | | 14, | | | 2019 | | | PM[facility] | | | [facility] | | | e | | | Immedi | | | ate | | | Care | | | [place] | | | [place] | | | Urgent | | | Care | | | pt | | | was | | | dizzy | | | this | | | mornin | | | g and | | | fell, | | | still | | | lighth | | | eaded | | | Feb | | | 17, | | | 2019 | | | Provid | | | ence | | | [facility] | | | e H[facility] | | | [place] | | | [place] | | | Emerge | | | ncy | | | IV | | | Medica | | | tion | | | | | | Absces | | | s of | | | liver | | | Feb | | | 16, | | | 2019 | | | Provid | | | ence | | | [facility] | | | e H. | | | [place] | [place] | [place] | | | Emerge | | | ncy | | | | | | Absces | | | s of | | | liver | | | Feb | | | 10, | | | 2019 | | | Provid | | | ence | | | [facility] | | | e H. | | | [place] | [place] | | | Emerge | | | ncy | | | | | | Absces | | | s of | | | liver | | | Feb | | | 9, | | | 2019 | | | Provid | | | ence | | | [facility] | | | e H. | | | [place] | | | [place] | | | Emerge | | | ncy | | | IV | | | Medica | | | tion | | | | | | Absces | | | s of | | | liver | | | Giuliano | | | 23, | | | 2019 | | | Provid | | | ence | | | [facility] | | | e H. | | | [place] | | | [place] | | | Emerge | | | ncy | | | Fever | | | (76 | | | Years | | | Old [place] | | | >) | | | | | | Sepsis | | | , | | | unspec | | | ified | | | organi | | | sm | | | Sepsis | | | , u | | | | | | Severe | | | | | | sepsis | | | with | | | septic | | | shock | | | | | | Recent | | | | | | Inpati | | | ent | | | Visit | | | [facility] | | | yDate | | | Facili | | | ty | | | City | | | State | | | Type | | | Diagno | | | ses or | | | Chief | | | | | | Compla | | | int | | | [place] | | | 23, | | | 2019 | | | Provid | | | ence | | | [facility] 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 | | | [place] | [place] | | | Medica | | | l | | | Surgic | | | al | | | Chroni | | | c | | | obstru | | | ctive | | | pulmon | | | yusra | | | diseas | | | e, | | | unspec | | | ified | | | | | | Sepsis | | | , | | | unspec | | | ified | | | organi | | | sm | | | Sepsis | | | , u | | | | | | Pneumo | | | [place], | | | unspec | | | ified | | | organi | | | sm | | | Nicoti | | | ne | | | depend | | | ence, | | | unspec | | | ified, | | | | | | uncomp | | | licate | | | d | | | Severe | | | | | | sepsis | | | with | | | septic | | | shock | | | | | | Bacter | | | emia | | | Care | | | TeamPr | | | ovider | | | | | | Specia | | | lty | | | Phone | | | Fax | | | Servic | | | e | | | Dates | | | Marier | | | , | | | Filemon | | | L MD | | | Primar | | | y Care | | | (999) | | | | | | 999-99 | | | 99 | | | Curren | | | t | | | or_pra | | | xis | | | Case | | | or | | | Care | | | Manage | | | r | | | Curren | | | t | | | [facility] | | | tive | | | Portal | | | This | | | patien | | | t has | | | regist | | | ered | | | at the | | | | | | [facility] | | | | | | Region | | | al | | | Medica | | | l | | | Center | | | | | | Emerge | | | ncy | | | Depart | | | ment | | | For | | | more | | | inform | | | ation | | | visit: | | | | | | https: | | | //secu | | | re.col | | | lectiv | | | emedic | | | al.com | | | /notif | | | [id number] | | | [id number] | | | [id number] | | | [id number] | | | [id number] | | | [id number] | | | 70 | | | PLEASE | | | NOTE: | | | 1. | | | Any | | | care | | | recomm | | | endati | | | ons | | | and | | | other | | | clinic | | | al | | | inform | | | ation | | | are | | | provid | | | ed as | | | guidel | | | jeannine | | | or for | | | | | | histor | | | ical | | | purpos | | | es | | | only, | | | and | | | provid | | | ers | | | should | | | | | | exerci | | | se | | | their | | | own | | | clinic | | | al | | | judgme | | | nt | | | when | | | provid | | | ing | | | care. | | | 2. | | | You | | | may | | | only | | | use | | | this | | | inform | | | ation | | | for | | | purpos | | | es of | | | treatm | | | ent, | | | paymen | | | t or | | | health | | | care | | | operat | | | ions | | | activi | | | ties, | | | and | | | subjec | | | t to | | | the | | | limita | | | tions | | | of | | | applic | | | able | | | [facility] | | | tive | | | Polici | | | es. | | | 3. | | | You | | | should | | | | | | consul | | | t | | | direct | | | ly | | | with | | | the | | | organi | | | zation | | | that | | | provid | | | ed a | | | care | | | guidel | | | ine or | | | other | | | | | | clinic | | | al | | | histor | | | y with | | | any | | | questi | | | ons | | | about | | | additi | | | onal | | | inform | | | ation | | | or | | | accura | | | cy or | | | comple | | | teness | | | of | | | inform | | | ation | | | provid | | | ed.? | | | 2019 | | | [facility] | | | tive | | | Medica | | | l | | | Techn[employer] | | | logies | | | , Inc[employer] | | | - | | | [email or web address] | | | llecti | | | vemedi | | | [email or web address] | | | m | +---+--------+ documented in this encounter Results MRI Abdomen wo Contrast MRCP (12/04/2018 2:35 PM PDT) + + | Specimen | + + | | + + + + + | Impressions | Performed At | + + + | 1. Mildly improved intrahepatic and extrahepatic biliary ductal | [facility] | | dilation from MRCP 08/02/2018. Extensive pneumobilia limits | | | evaluation for choledocholithiasis, however allowing for this a few | | | residual filling defects are seen in the common bile duct measuring | | | up to 7 mm suggestive of residual stones with overall improved stone | | | burden from before. 2. Persistent moderate segmental dilation of the | | | left hepatic lobe with probable underlying stricture. Multiple | | | left hepatic lobe intraductal stones are again seen. Limited | | | evaluation for cholangitis or mass given lack of contrast. 3. 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 No high risk features. Pancreatic cyst | | | follow up recommendation: Pancreatic IPMN cysts between 1.5 and 1.9 | | | cm without high risk or worrisome features are rarely clinically | | | significant. Recommend non-urgent pancreatic specialist referral and | | | MRI with and without contrast with MRCP annually for 5 years, then | | | every 2 years for a total of 9 years after initial detection. No | | | further imaging if cyst remains less than 1.9 cm or when appropriate | | | based on overall health condition and potential surgical candidacy. | | | (Based on [employer] and [place] Guidelines, 2017) | | | Signed by: Stanislav Wolfe Tyson Sign Date/Time: | | | 12/04/2018 2:57 PM | | + + + + + + | Narrative | Performed At | + + + | MRI ABDOMEN WITHOUT IV CONTRAST CLINICAL INFORMATION: ruq | [facility] | | pain COMPARISON: CT ABDOMEN PELVIS W CONTRAST (11/16/2018); [place] | | | ERCP BILIARY ONLY (11/09/2018); MRI ABDOMEN W WO CONTRAST MRCP | | | (11/02/2018); PROCEDURE: Multiplanar, multisequence MRI of the | | | abdomen without IV contrast including dedicated MRCP sequences. | | | MRCP 3D reconstructions not performed on a separate workstation. | | | FINDINGS: MRCP: The gallbladder is surgically absent. Mildly | | | improved intrahepatic and extrahepatic biliary ductal dilation from | | | MRCP 08/02/2018, now mild to moderate. Moderate segmental left | | | hepatic lobe ductal dilation is unchanged with multiple probable | | | intraductal stones (image 8, series 5). Probable stricture of the | | | left hepatic ductal confluence. Extensive pneumobilia is again | | | seen. The common bile duct measures 13 mm with multiple dependent | | | filling defects in the dependent common bile duct measuring up to 7 | | | mm (image 20, series 2). Some of the stone the T1 hyperintense. 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 No | | | significant pulmonary abnormality. No pleural or pericardial | | | effusion. Liver: Normal liver contour. Normal unenhanced | | | appearance of the liver. Pancreas, Adrenal glands and spleen: Stable | | | multi cystic pancreatic lesion in lung the posterior aspect of the | | | pancreatic head, unchanged from prior measuring up to 16 mm, which | | | appears to communicate with the main pancreatic duct. Additional | | | cystic lesions in the pancreatic neck and body and tail are | | | unchanged. The pancreas is otherwise unremarkable in appearance. | | | The adrenals and spleen are normal. Kidneys: No contour deforming | | | renal mass. No hydronephrosis. Bowel: Scattered colonic | | | diverticulosis. Peritoneum and Retroperitoneum: No ascites. No | | | significant retroperitoneal abnormality. Vessels: Normal caliber | | | aorta. Veins not assessed without contrast. Lymph Nodes: No | | | adenopathy. Body Wall: No abdominal wall mass or significant hernia. | | | Bones: Normal marrow signal. | | + + + + + | Procedure Note | + + | Dex, Rad Results In - 12/04/2018 3:01 PM PDT | | MRI ABDOMEN WITHOUT IV CONTRAST | | | | CLINICAL INFORMATION: | | ruq pain | | | | COMPARISON: | | CT ABDOMEN PELVIS W CONTRAST (11/16/2018); [place] ERCP BILIARY ONLY | | (11/09/2018); MRI ABDOMEN W WO CONTRAST MRCP (11/02/2018); | | | | PROCEDURE: | | Multiplanar, multisequence MRI of the abdomen without IV contrast | | including dedicated MRCP sequences. | | | | MRCP 3D reconstructions not performed on a separate workstation. | | | | FINDINGS: | | MRCP: The gallbladder is surgically absent. Mildly improved | | intrahepatic and extrahepatic biliary ductal dilation from MRCP | | 08/02/2018, now mild to moderate. Moderate segmental left hepatic lobe | | ductal dilation is unchanged with multiple probable intraductal stones | | (image 8, series 5). Probable stricture of the left hepatic ductal | | confluence. Extensive pneumobilia is again seen. The common bile duct | | measures 13 mm with multiple dependent filling defects in the dependent | | common bile duct measuring up to 7 mm (image 20, series 2). Some of | | the stone the T1 hyperintense. | | | | Lung Bases: Thinning with fatty metaplasia involving the left | | ventricular apex consistent with prior infarct, unchanged. No | | significant pulmonary abnormality. No pleural or pericardial effusion. | | | | Liver: Normal liver contour. Normal unenhanced appearance of the liver. | | Pancreas, Adrenal glands and spleen: Stable multi cystic pancreatic | | lesion in lung the posterior aspect of the pancreatic head, unchanged | | from prior measuring up to 16 mm, which appears to communicate with the | | main pancreatic duct. Additional cystic lesions in the pancreatic neck | | and body and tail are unchanged. The pancreas is otherwise | | unremarkable in appearance. The adrenals and spleen are normal. | | Kidneys: No contour deforming renal mass. No hydronephrosis. | | | | Bowel: Scattered colonic diverticulosis. | | Peritoneum and Retroperitoneum: No ascites. No significant | | retroperitoneal abnormality. | | Vessels: Normal caliber aorta. Veins not assessed without contrast. | | Lymph Nodes: No adenopathy. | | Body Wall: No abdominal wall mass or significant hernia. | | Bones: Normal marrow signal. | | | | IMPRESSION: | | 1. Mildly improved intrahepatic and extrahepatic biliary ductal | | dilation from MRCP 08/02/2018. Extensive pneumobilia limits evaluation | | for choledocholithiasis, however allowing for this a few residual | | filling defects are seen in the common bile duct measuring up to 7 mm | | suggestive of residual stones with overall improved stone burden from | | before. | | 2. Persistent moderate segmental dilation of the left hepatic lobe with | | probable underlying stricture. Multiple left hepatic lobe intraductal | | stones are again seen. Limited evaluation for cholangitis or mass | | given lack of contrast. | | 3. 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 No high risk features. Pancreatic cyst follow | | up recommendation: Pancreatic IPMN cysts between 1.5 and 1.9 cm | | without high risk or worrisome features are rarely clinically | | significant. Recommend non-urgent pancreatic specialist referral and | | MRI with and without contrast with MRCP annually for 5 years, then | | every 2 years for a total of 9 years after initial detection. No | | further imaging if cyst remains less than 1.9 cm or when appropriate | | based on overall health condition and potential surgical candidacy. | | (Based on [employer] and [place] Guidelines, 2017) | | | | | | | | | | Signed by: Stanislav Wolfe Tyson | | Sign Date/Time: 12/04/2018 2:57 PM | + + + +---------+ + + | Performing | Address | City/State/Zipcode | Phone Number | | Organization | | | | + +---------+ + + | [facility] | | | | + +---------+ + + Culture, Blood (12/04/2018 12:22 PM PDT) + + + + + + | Component | Value | Ref Range | Performed | Pathologist | | | | | At | Signature | + + + + + + | Special | LAC | | [facility] | | | Requests | | | LABORATORY | | + + + + + + | Special | Testing performed at | | [facility] | | | Requests | [address] | | LABORATORY | | | | [place] [id number] | | | | + + + + + + | RESULT | NO GROWTH 6 DAYS | | [facility] | | | | | | LABORATORY | | + + + + + + | RESULT | Testing performed at | | [facility] | | | | TCL, [address] [facility] | | LABORATORY | | | | [place], [place] | | | | | | [id number]: Testing | | | | | | performed at [facility], [address] | | | [address] [place], [place] | | | | | | [address] | | | | + + + + + + + + | Specimen | + + | Blood - Peripheral | | blood specimen | | (specimen) | + + + + + + + | Performing | Address | City/State/Zipcode | Phone Number | | Organization | | | | + + + + + | [facility] | [address] | [place] [address] | [phone] | + + + + + Lactic Acid (12/04/2018 12:17 PM PDT) + + + + + + | Component | Value | Ref Range | Performed | Pathologist | | | | | At | Signature | + + + + + + | Lactate, | 1.1Comment: Testing | 0.4 - 2.0 | [facility] | | | Serum | performed at [facility];[address] | mmol/L | LABORATORY | | | | [address];[place], [place] | | | | | | [address] | | | | + + + + + + + + | Specimen | + + | Blood | + + + + + + + | Performing | Address | City/State/Zipcode | Phone Number | | Organization | | | | + + + + + | [facility] | [address] | [place] [address] | [phone] | + + + + + Culture, Blood (12/04/2018 12:01 PM PDT) + + + + + + | Component | Value | Ref Range | Performed | Pathologist | | | | | At | Signature | + + + + + + | Special | RT AC | | [facility] | | | Requests | | | LABORATORY | | + + + + + + | Special | Testing performed at | | [facility] | | | Requests | [facility] | | LABORATORY | | | | [address];[place] [address] | | | | + + + + + + | RESULT | NO GROWTH 6 DAYS | | [facility] | | | | | | LABORATORY | | + + + + + + | RESULT | Testing performed at | | [facility] | | | | TCL, [address] | | LABORATORY | | | | [place], [place], [place] | | | | | | [address]Whnwios: Testing | | | | | | performed at [facility], [address], [place], [place] | | | | | | [address] | | | | + + + + + + + + | Specimen | + + | Blood - Peripheral | | blood specimen | | (specimen) | + + + + + + + | Performing | Address | City/State/Zipcode | Phone Number | | Organization | | | | + + + + + | [facility] | [address] | [place] [address] | [phone] | + + + + + Protime INR (12/04/2018 12:01 PM PDT) + + + + + + | Component | Value | Ref Range | Performed | Pathologist | | | | | At | Signature | + + + + + + | INR | 0.9Comment: REFERENCE | | [facility] | | | | RANGE:0.9 - 1.2 | | LABORATORY | | | | NON-ANTICOAGULATED2.0 | | | | | | - 3.0 ALL OTHER | | | | | | THERAPEUTIC | | | | | | INDICATIONS2.5 - 3.5 | | | | | | MECHANICAL HEART VALVES, | | | | | | RECURRENT OR SYSTEMIC | | | | | | EMBOLISMTesting | | | | | | performed at [facility] | | | | | | [address] [facility];[place], [place] | | | | | | [address] | | | | + + + + + + + + | Specimen | + + | Blood | + + + + + + + | Performing | Address | City/State/Zipcode | Phone Number | | Organization | | | | + + + + + | [facility] | [address] | [place] [address] | [phone] | + + + + + Lipase (12/04/2018 12:01 PM PDT) + + + + + + | Component | Value | Ref Range | Performed | Pathologist | | | | | At | Signature | + + + + + + | Lipase | 27Comment: Testing | 12 - 53 U/L | [facility] | | | | performed at [facility];[address] | | LABORATORY | | | | [address];[place] | | | | | | [address] | | | | + + + + + + + + | Specimen | + + | Blood | + + + + + + + | Performing | Address | City/State/Zipcode | Phone Number | | Organization | | | | + + + + + | [facility] | [address] | [place] [address] | [phone] | + + + + + Comprehensive Metabolic Panel (12/04/2018 12:01 PM PDT) + + + + + + | Component | Value | Ref Range | Performed | Pathologist | | | | | At | Signature | + + + + + + | Na | 140 | 135 - 145 | [facility] | | | | | mmol/L | LABORATORY | | + + + + + + | K | 4.2 | 3.5 - 4.9 | [facility] | | | | | mmol/L | LABORATORY | | + + + + + + | Cl | 103 | 99 - 109 mmol/L | [facility] | | | | | | LABORATORY | | + + + + + + | CO2 | 30 | 23 - 32 mmol/L | [facility] | | | | | | LABORATORY | | + + + + + + | Anion Gap | 11 | 5 - 20 mmol/L | [facility] | | | | | | LABORATORY | | + + + + + + | Glucose | 82 | 65 - 99 mg/dL | [facility] | | | | | | LABORATORY | | + + + + + + | BUN | 7 (L) | 8 - 25 mg/dL | [facility] | | | | | | LABORATORY | | + + + + + + | Creatinine | 0.66 | 0.50 - 1.00 | [facility] | | | | | mg/dL | LABORATORY | | + + + + + + | BUN/Creatin | 11 | | [facility] | | | ine Ratio | | | LABORATORY | | + + + + + + | Calcium | 9.7 | 8.5 - 10.5 | [facility] | | | | | mg/dL | LABORATORY | | + + + + + + | Protein, | 6.7 | 6.3 - 8.2 g/dL | [facility] | | | Total | | | LABORATORY | | + + + + + + | Albumin | 4.6 | 3.3 - 4.8 g/dL | [facility] | | | | | | LABORATORY | | + + + + + + | Globulin | 2.1 | 1.3 - 4.9 g/dL | [facility] | | | | | | LABORATORY | | + + + + + + | A/G Ratio | 2.2 | 1.0 - 2.4 | [facility] | | | | | | LABORATORY | | + + + + + + | BILIRUBIN, | 0.5 | 0.1 - 1.5 mg/dL | [facility] | | | TOTAL | | | LABORATORY | | + + + + + + | ALK PHOS | 110 | 35 - 115 U/L | [facility] | | | | | | LABORATORY | | + + + + + + | AST | 12 | 10 - 45 U/L | [facility] | | | | | | LABORATORY | | + + + + + + | ALT | 21 | 10 - 65 U/L | [facility] | | | | | | LABORATORY | | + + + + + + | Estimated | >60Comment: GFR <60: | >60 | [facility] | | | GFR | CHRONIC KIDNEY [...] | | | | | performed at [facility];[address] | | | | | | [facility];[place], [place] | | | | | | [address] | | | | + + + + + + + + | Specimen | + + | Blood | + + + + + + + | Performing | Address | City/State/Zipcode | Phone Number | | Organization | | | | + + + + + | [facility] | [address] | [place] [address] | [phone] | + + + + + CBC with Differential (12/04/2018 12:01 PM PDT) + + + + + + | Component | Value | Ref Range | Performed | Pathologist | | | | | At | Signature | + + + + + + | WBC | 8.73 | 3.80 - 11.00 | [facility] | | | | | K/uL | LABORATORY | | + + + + + + | RBC | 4.11 | 3.70 - 5.10 | [facility] | | | | | M/uL | LABORATORY | | + + + + + + | Hemoglobin | 13.9 | 11.3 - 15.5 | [facility] | | | | | g/dL | LABORATORY | | + + + + + + | Hematocrit | 40.2 | 34.0 - 46.0 % | [facility] | | | | | | LABORATORY | | + + + + + + | MCV | 97.9 | 80.0 - 100.0 fl | [facility] | | | | | | LABORATORY | | + + + + + + | MCH | 33.8 | 27.0 - 34.0 pg | [facility] | | | | | | LABORATORY | | + + + + + + | MCHC | 34.5 | 32.0 - 35.5 | [facility] | | | | | g/dL | LABORATORY | | + + + + + + | RDW-SD | 48.1 | 37 - 53 fl | [facility] | | | | | | LABORATORY | | + + + + + + | Platelet | 258 | 150 - 400 K/uL | [facility] [...] + + + + | % | 69.11 | % | [facility] | | | Neutrophils | | | LABORATORY | | + + + + + + | % | 22.68 | % | [facility] | | | Lymphocytes | | | LABORATORY | | + + + + + + | Monocyte % | 6.00 | % | [facility] | | | | | | LABORATORY | | + + + + + + | Eosinophils | 1.37 | % | [facility] | | | % | | | LABORATORY | | + + + + + + | Basophils % | 0.84 | % | [facility] | | | | | | LABORATORY | | + + + + + + | Neutrophils | 6.04 | 1.90 - 7.40 | [facility] | | | , Absolute | | K/uL | LABORATORY | | + + + + + + | Absolute | 1.98 | 1.00 - 3.90 | [facility] | | | Lymphocytes | | K/uL | LABORATORY | | + + + + + + | Absolute | 0.52 | 0.00 - 0.80 | [facility] | | | Monocytes | | K/uL | LABORATORY | | + + + + + + | Eosinophils | 0.12 | 0.00 - 0.50 | [facility] | | | , Absolute | | K/uL | LABORATORY | | + + + + + + | Basophils, | 0.07Comment: Testing | 0.00 - 0.10 | [facility] | | | Absolute | performed at [facility];[address] | K/uL | LABORATORY | | | | [address];[place], [place] | | | | | | [address] | | | | + + + + + + + + | Specimen | + + | Blood | + + + + + + + | Performing | Address | City/State/Zipcode | Phone Number | | Organization | | | | + + + + + | [facility] | [address] | [place] [address] | [phone] | + + + + + documented in this encounter Visit Diagnoses + + | Diagnosis | + + | RUQ abdominal pain - Primary Abdominal pain, right upper quadrant | + + | Intrahepatic bile duct dilation Other specified disorders of biliary tract | + + | Choledocholithiasis Calculus of bile duct without mention of cholecystitis or | | obstruction | + + documented in this encounter Administered Medications + +--------+ +------+------+------+ | Medication Order | MAR | Action | Dose | Rate | Site | | | Action | Date | | | | + +--------+ +------+------+------+ | HYDROmorphone (DILAUDID) | Given | 12/05/19 | 1 mg | | | | injection 1 mg 1 mg, | | 19 3:19 | | | | | Intravenous, EVERY 1 HOUR PRN, | | PM PDT | | | | | Pain, Starting 12/04/18 at | | | | | | | 1135, For 2 doses | | | | | | + +--------+ +------+------+------+ +-------+ +------+---+---+ | Given | 12/05/19 | 1 mg | | | | | 19 12:00 | | | | | | PM PDT | | | | +-------+ +------+---+---+ +---+---+ | | | +---+---+ + +-------+ +------+---+---+ | ondansetron (ZOFRAN) injection | Given | 12/05/19 | 4 mg | | | | 4 mg 4 mg, Intravenous, EVERY 1 | | 19 3:19 | | | | | HOUR PRN, Nausea, Vomiting, | | PM PDT | | | | | Starting 12/04/18 at 1135, | | | | | | | For 2 doses | | | | | | + +-------+ +------+---+---+ +-------+ +------+---+---+ | Given | 12/05/19 | 4 mg | | | | | 19 11:59 | | | | | | AM PDT | | | | +-------+ +------+---+---+ +---+---+ | | | +---+---+ + +---------+ +---+-------+---+ | sodium chloride 0.9% (NS) | New Bag | 12/05/19 | | 100 | | | infusion at 100 mL/hr, | | 19 12:04 | | mL/hr | | | Intravenous, CONTINUOUS, Starting | | PM PDT | | | | | 12/04/18 at 1140 | | | | | | + +---------+ +---+-------+---+ +---+---+ | | | +---+---+ documented in this encounter
--- OUTSIDE RECORDS SUMMARY | ~2019-06-30 | XMS | Encounter Summary ---
Demographics + + + | Address | [address] | | | [place] [address] | + + + | Home Phone [...] Team Providers + +------+ + | Care Bran Mixer Name | Role | Phone | + +------+ + | Fabrice Hansen DO | PCP | | + +------+ + Encounter Details +--------+ + + + + | Date | Type | Department | Care Team | Description | +--------+ + + + + | 09/27/ | Orders Only | [facility] | [place], | Epigastric pain; | | 2019 | | [address] | [place], | Dysphagia, | | | | [place] | Corn Crop Supervisor | unspecified type | | | | [address] | | | | | | [phone] | | | +--------+ + + + [...] [place] | | | | | | [place] [address] | | | | | | [phone] | | | | | | | | +--------+---------+ + + + documented as of this encounter Procedures + +--------+ + + + | Procedure Name | Priori | Date/Time | Associated Diagnosis | Comments | | | ty | | | | + +--------+ + + + | LIPASE | Routin | 09/27/2018 | Epigastric pain | Results for this | | | e | 2:44 PM | Dysphagia, | procedure are in the | | | | PDT | unspecified type | results section. | + +--------+ + + + | AMYLASE | Routin | 09/27/2018 | Epigastric pain | Results for this | | | e | 2:44 PM | Dysphagia, | procedure are in the | | | | PDT | unspecified type | results section. | + +--------+ + + + | COMPREHENSIVE | Routin | 09/27/2018 | Epigastric pain | Results for this | | METABOLIC PANEL | e | 2:44 PM | Dysphagia, | procedure are in the | | | | PDT | unspecified type | results section. | + +--------+ + + + documented in this encounter Results Amylase (09/27/2018 2:44 PM PDT) + + + + + + | Component | Value | Ref Range | Performed | Pathologist | | | | | At | Signature | + + + + + + | Amylase | 34Comment: Testing | 25 - 115 U/L | REFERENCE | | | | performed at [facility];[address] | | LAB | | | | [facility] | | [facility] | | | | [place] [address] | | LABORATORY | | + + + + + + + + | Specimen | + + | Blood | + + + + + + + | Performing | Address | City/State/Zipcode | Phone Number | | Organization | | | | + + + + + | REFERENCE LAB | [address] [facility] [address] | [place], [place] | [phone] | | [facility] | [address] | [address] | | | LABORATORY | | | | + + + + + | REFERENCE LAB | [address] [facility] [address] | [place], [place] | | | [facility] | [address] | [address] | | | LABORATORY | | | [...] REFERENCE | | | | performed at [facility];[address] | | LAB | | | | [place] | | [facility] | | | | [address];[place] [address] | | LABORATORY | | + + + + + + + + | Specimen | + + | Blood | + + + + + + + | Performing | Address | City/State/Zipcode | Phone Number | | Organization | | | | + + + + + | REFERENCE LAB | [address] [place] [address] | [place] | [phone] | | [facility] | [address] | [address] | | | LABORATORY | | | | + + + + + | REFERENCE LAB | [address] [place] [address] | [place], [place] | | | [facility] | [address] | [address] | | | LABORATORY | | | | + + + + + Comprehensive Metabolic Panel (09/27/2018 2:44 PM PDT) [...] | | | | | performed at [facility];[address] | | | | | | [facility] | | | | | | [address];[place] [address] | | | | | | | [...] [facility] | [place] | [phone] | | [facility] | Bl[address] | [address] | | | LABORATORY | | | | + + + + + | REFERENCE LAB | [address] | [place] | | | [facility] | [address] | [address] | | | LABORATORY | | | | + + + + + documented in this encounter Visit Diagnoses + + | Diagnosis | + + | Epigastric pain Abdominal pain, epigastric | + + | Dysphagia, unspecified type | + + documented in this encounter"
--- OUTSIDE RECORDS SUMMARY | ~2019-06-30 | XMS | Encounter Summary ---
Demographics + + + | Address | [address] | | | [place] [address] | + + + | Home Phone | | + + + | Preferred Language | Unknown | + + + | Marital Status | | + + + | Baptist Affiliation | 1041 | + + + | Race | Unknown | + + + | Ethnic Group | Unknown | + + + Author + + + | Author | [facility] | | | and [place] | + + + | Organization | [facility] | | | and [place] | + + + | Address | Unknown | + + + | Phone | Unavailable | + + + Support + + +---------+ + | Name | Relationship | Address | Phone | + + +---------+ + | Loyd Mcnair | ECON | Unknown | | + + +---------+ + | Cecile aWy | ECON | Unknown | | + + +---------+ + Care Team Providers + +------+ + | Care School Office Manager Name | Role | Phone | + +------+ + | Fabrice Hansen DO | PCP | | + +------+ + Encounter Details +--------+ + + + + | Date | Type | Department | Care Team | Description | +--------+ + + + + | 03/03/ | Orders Only | [facility] | Conversion | | | 2018 | | CONVERSION DEP [address] | Transaction, | | | | [address] | Provider Unknown | | | | | [place], [place] | [phone] | | | | | [address] | | | | | | [phone] | | | +--------+ + + + [...] | | | | | [place] [address] | | | | | | [phone] | | | | | | | | +--------+---------+ + + + documented as of this encounter Visit Diagnoses Not on filedocumented in this encounter"
--- OUTSIDE RECORDS SUMMARY | ~2019-06-30 | XMS | Clinical Summary ---
Demographics + + + | Address | [address] | | | [place] [address] | + + + | Home Phone | | + + + | Preferred Language | Unknown | + + + | Marital Status | | + + + | Zoroastrianism Affiliation | 1041 | + + + | Race | Unknown | + + + | Ethnic Group | Unknown | + + + Author + + + | Author | [facility] | | | and [place] | + + + | Organization | [facility] | | | [...] Team Providers + +------+ + | Care Poultry Veterinarian Name | Role | Phone | + [...] | joan) | + + + +---------+------+------+-------+ | venlafaxine [...] | | | | | | | jona) | + + + +---------+------+------+-------+ Active Problems [...] automatically from request for surgery | | [id number] | + + + + + | Calculus of bile duct with cholangitis and obstruction, | 11/05/2018 | | unspecified cholangitis acuity | | + + + + + | Overview: Added automatically from request for surgery | | [id number] | + + + + + | Liver abscess | 03/05/2018 | + + + | Left wrist sprain | 08/03/2017 | + + + | Pharyngoesophageal dysphagia | 06/16/2017 | + + + + + | Overview: Added automatically from request for surgery [id number] | + + + + + | Screening for colorectal cancer | 06/16/2017 | + + + + + | Overview: Added automatically from request for surgery [id number] | + + + + + | Change in bowel movement | 06/16/2017 | + + + + + | Overview: Added automatically from request for surgery [id number] | + + + + + | [...] | + + + | History of [place] | 10/18/2012 | + + + | [...] [place] | | | | | | [place] [address] | | | | | | [phone] | | | | | | | [...] | N/A: | [facility] | | | [id number] | | - [id number]: Qty: 1 | | Pancre | SCIENTIFIC | | | 360 / | | on 11/09/2018 by Jay, | | as | MYRIAM - BSCI | | | / | | MD [facility] at [facility] | | | | | | | | [facility] | | | | | | [...] +--------+ +---------+--------+ | AARP | AARP | [id number] | 02/09/19 | [phone] | | Indemn | | | MDCR | | 15-Pre | 0 | | ity | | | SUPPL | | sent | | | | + +--------+ +--------+ +---------+--------+ | MEDICARE | MEDICA | [id number] | 06/10/19 | [phone] | | Medica | | | RE | | 12-Pre | 5 | | re | | | PART A | | sent | | | | | | AND B | | | | | | + +--------+ +--------+ +---------+--------+ | AARP | AARP | [id number] | 02/09/19 | [phone] | | Indemn | | | MDCR | | 19-Pre | 0 | | ity | | | SUPPL | | sent | | | | + +--------+ +--------+ +---------+--------+ | MEDICARE | MEDICA | [id number] | 06/10/19 | [phone] | | Medica [...] | | al/Fam | | 1946 | [phone] | [place] | | | lesa | | | 0 (Home) | [address] | + +--------+ +--------+ + + | [address] | Person | Self | [birth year] | | [address] | | | al/Fam | | 1946 | [phone] | [place], [place] | | | [place]a | | | 0 (Home) | [address] | + +--------+ +--------+ + + Advance Directives + + + + + | Type | Date Recorded | Patient | Explanation | | | | Meal Cooker | | + + + + + | Power of | | | | | Principal Investigator | | | | + + + [...]
--- OUTSIDE RECORDS SUMMARY | ~2019-06-30 | XMS | Encounter Summary ---
Demographics + + + | Address | [address] | | | [place] [address] | + + + | Home Phone | | + + + | Preferred Language | Unknown | + + + | Marital Status | | + + + | Episcopalian Affiliation | 1041 | + + + | Race | Unknown | + + + | Ethnic Group | Unknown | + + + Author + + + | Author | [facility] | | | and [place] | + + + | Organization | [facility] | | | [...] Team Providers + +------+ + | Care Merchandise Stocker Name | Role | Phone | + +------+ + | Filemon Roy MD | PCP | | + +------+ + Encounter Details +--------+ + + + + | Date | Type | Department | Care Team | Description | +--------+ + + + + | 07/07/ | Orders Only | [facility] | Jeremi Geiger MD | Back pain (Primary | | 2013 | | NEUROSURGERY [address] | [address] | Dx) | | | | [address] | [place] [address] | | | | | [place] | [phone] | | | | | [address] | | | | | | [phone] | | | +--------+ + + + [...] [place] | | | | | | [place] [address] | | | | | | [phone] | | | | | | | | +--------+---------+ + + + + +---------+--------+ + + | Name | Type | Priori | Associated Diagnoses | Order Schedule | | | | ty | | | + +---------+--------+ + + | XR Lumbar Spine 4 + | Imaging | Routin | Back pain | Expected: 07/17/2013 | | Vw | | e | | (Approximate), | | | | | | Expires: 07/06/2014 | + +---------+--------+ + + documented as of this encounter Visit Diagnoses + + | Diagnosis | + + | Back pain - Primary Backache, unspecified | + + documented in this encounter"
--- OUTSIDE RECORDS SUMMARY | ~2019-06-30 | XMS | Encounter Summary ---
Demographics + + + | Address | [address] | | | [place] [address] | + + + | Home Phone | | + + + | Preferred Language | Unknown | + + + | Marital Status | | + + + | Uatsdin Affiliation | [id number] | + + + | Race | Unknown | + + + | Ethnic Group | Unknown | + + + Author + + + | Author | [facility] | | | and Luisana | + + + | Organization | [facility] | | [...] Team Providers + +------+ + | Care Family And Divorce Legal Assistant Name | Role | Phone | + +------+ + | Fabrice Hansen DO | PCP | | + +------+ + Reason for Referral Diagnostic/Screening (Routine) + +--------+ + + + + | Status | Reason | Specialty | Diagnoses / | Referred By | Referred To | | | | | Procedures | Contact | Contact | + +--------+ + + + + | Authorizatio | | Radiology | Diagnoses | [place], | [facility] | | n not | | | Coronary | Erin Francis, | [address] | | Required | | | artery | [address] | | | | | disease | [address] | [place], [place] | | | | | involving | [place] | [address] | | | | | [place] | [place], [place] | Phone: | | | | | coronary | [address] | [phone] | | | | | artery of | Phone: | Fax: | | | | | [place] | [phone] | [phone] | | | | | heart, | Fax: | | | | | | angina | [phone] | | | | | | presence | | | | | | | unspecified | | | | | | | Hx of CABG | | | | | | | History of | | | | | | | myocardial | | | | | | | infarction | | | | | | | Regional | | | | | | | wall motion | | | | | | | abnormality | | | | | | | of heart | | | | | | | Ascending | | | | | | | aortic | | | | | | | aneurysm | | | | | | | ([facility]) | | | | | | | Procedures | | | | | | | ECHO | | | | | | | Complete | | | + +--------+ + + + + Reason for Visit + + + | Reason | Comments | + + + | Follow-up, Office | Low pulse rate | | Visit | | + + + Encounter Details +--------+---------+ + + + | Date | Type | Department | Care Team | Description | +--------+---------+ + + + | 12/21/ | Office | [facility] | Erin Limon | Coronary artery | | 2019 | Visit | CARDIOLOGY [place] | [address] | disease involving | | | | [address] | [place] coronary | | | | [address] | [place] [address] | artery of [place] | | | | [address] | [phone] | heart, angina | | | | [phone] | | presence unspecified | | | | | | (Primary Dx); Hx of | | | | | | CABG; History of | | | | | | PTCA; History of | | | | | | myocardial | | | | | | infarction; Regional | | | | | | wall motion | | | | | | abnormality of | | | | | | heart; Ascending | | | | | | aortic aneurysm | | | | | | (HCC); Hypertension | | | | | | goal BP (blood | | | | | | pressure) < 130/80; | | | | | | Mixed | | | | | | hyperlipidemia; | | | | | | Chronic obstructive | | | | | | pulmonary disease, | | | | | | unspecified COPD | | | | | | type (HCC); Smoker; | | | | | | Other specified | | | | | | hypothyroidism | +--------+---------+ + + + Social History [...] + + + | Blood Pressure | 114/80 | 12/21/2018 9:30 AM | | | | | PST | | + + + + + | Pulse | 71 | 12/21/2018 9:30 AM | | | | | PST | | + + + + + | Temperature | - | - | | + + + + + | Respiratory Rate | - | - | | + + + + + | Oxygen Saturation | 100% | 12/21/2018 9:30 AM | | | | | PST | | + + + + + | Inhaled Oxygen | - | - | | | Concentration | | | | + + + + + | Weight | 61.9 kg (136 lb 6.4 | 12/21/2018 9:30 AM | | | | oz) | PST | | + + + + + | Height | 162.6 cm (5' 4") | 12/21/2018 9:30 AM | | | | | PST | | + + + + + | Body Mass Index | 23.41 | 12/21/2018 9:30 AM | | | | | PST | | + + + + + documented in this encounter Patient Instructions Patient Instructions Erin Limon FNP - 12/21/2018 9:30 AM PSTI have ordered you fasting labs to be done at [facility] sometime in next 2 weeks, I also ordered you an Echo To be done in June , I made No changes to medications , stay off metoprolol as heart rate too slow when you wer e on it. See me back in February , but sooner if needed documented in this encounter Progress Notes Erin Limon FNP - 12/21/2018 9:30 AM PSTFormatting of this note might be differe nt from the original. Date of visit: 12/21/2018 Primary Care Physician: Fabrice Hansen DO CHIEF COMPLAINT: Chief Complaint Patient presents with Follow-up, Office Visit Low pulse rate HISTORY OF PRESENT ILLNESS: Ms. Sharon Way is a 73-year-old woman who is here today to follow-up on bradycardia since being on metoprolol, and early for 6-month follow-up. Today I reviewed all available records from electronic medical record, and [facility]. She is a patient of Dr. Gutierrez and last seen by him 07/15/2018 when Echo Reviewed , and order ed another Echo for next year , and continued on Metoprolol, and Lisinopril 10 mg She has a history of coronary artery disease with previous stenting to her LAD in 2000, o pen heart surgery in 2001 in [place], previous history of myocardial infarction in 2001, mil d heart failure with EF of 45 percent, small fusiform ascending aortic aneurysm, hypertensio n, hyperlipidemia, small history of small pulmonary nodule, COPD and asthma, depression with conversion disorder in 2014, hypothyroidism, and current smoker. Her previous testing and procedures are detailed below. When I saw her last, I was continuing to work with her to quit smoking, and also increase her exercise . Since I saw her last, she was admitted for severe sepsis, pneumonia and a liver abscess a fter she became ill when visiting her daughter in [place] 02/01/2018, and was then hospital ized February 21-to March 02 with sepsis secondary to Klebsiella bacteremia and discharged with 10-day course of Cipro and then developed frequent septic shock and was sent to [facility] 03/03/2018-03/15/2018 for further management. She had a liver abscess in her right hepatic lobe which was drained, and she was treated with IV antibiotics, and followed by infectious diseases with plan antibiotics through April 06 at [facility] in [facility]. She continued to have abdominal pain, and was evaluated by GI nurse practitioner Padmaja meléndez on November 02, and referred to 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 She was admitted again to the emergency room at [facility] on November 16 with abdominal pain, and consequently followed up with GI GERHARD Le 11/24/2018 when doing better, but then back in ER 12/04/2018 for increased abd pain, and telephone note she will be scheduled for ERCP with stent removal by Dr. Buck towards the end of December . She reports today that for the first time on Thursday she did not have any abdominal pain and has been feeling better, and thinks that her stones may have passed. She denies any chest pain today, but reports she had significant bradycardia with metoprolo l, and was also very dizzy and lightheaded, and her metoprolol has been stopped twice during her hospitalizations for bradycardic heart rate, and I noticed her previous EKG performed o n November 11, 2018 during her hospitalization in [place] showed a bradycardic heart rate of 4 4 bpm and PVCs and trigeminal pattern. She reports since she stopped her metoprolol in November, that all her symptoms of lighthead edness and dizziness have resolved and she feels much improved, and her heart rate is now pr edominantly , and no longer in the 40s. She denied any syncope with low heart rate, and als o denied any dyspnea. She reports she has only very rare palpitations which are per her home blood pressure log i s primarily in the 104-124 mmHg range after medications. She is still smoking, but has decreased her smoking to approximately 1 pack every 2-1/2 to 3 days. She feels she is moving closer to quitting, has now all of her siblings have quit, her h usband does not smoke, and the only one who smokes is her daughter, who continues to have le gal problems, and has been in longterm. She brought her medications to the clinic today, and personally reviewed by me. REVIEW OF SYSTEMS: Negative except for pertinent items noted in HPI. Constitutional: Denies fatigue or unexplained weight loss. Appetite is good. Weight is st able. Denies night sweats fevers or chills HENT: Denies nosebleeds. Denies hearing problems. Denies dysphagia Eyes: Hx cataract surgery Denies visual disturbance or double vision. Respiratory/Sleep:: reports mild FISHMAN with more extreme exertion History of COPD /asthma. D enies cough Denies hemoptysis or excessive sputum production. Denies snoring, orthopnea, P ND. Cardiovascular: Denies chest pain, palpitations and leg swelling. Denies history of rheuma tic fever. Denies claudication . Gastrointestinal: GERD 02/2018: sepsis, and liver abscess, . 11/09/2018: choledocholithiasis, ERCP w/ biliary sphincterotomy and stent placement, and dilation of left intrahepatic duct stricture and developed acute cholangitis. Ongoing abdominal pain with some nausea until 02/19/2018. Denies vomiting, and blood in stool. Genitourinary: Denies hematuria. Musculoskeletal: History of arthritis with joint pain, thumb and knee surgery, back pain D enies myalgias, Skin: Denies color change. Denies rash or lesions Neurological: History of carpal tunnel release Denies history of stroke/Transient ischemic attack.Denies history of seizures. Denies dizziness, syncope and numbness. Hematological/Oncology Does not bruise/bleed easily. Denies history of cancer Endocrine: Denies diabetes or thyroid disease. Denies excessive thirst or hunger. Psychiatric/Behavioral: History of depression and anxiety,conversion disorder 2015. Vaccines: Current on flu vaccine: 12/2018. Current on pneumonia vaccine.(Prevnar 13 2014) Habits/Social :smoking. 02/11 ppd., Has smoked about a pack a day for 35 years .Rare EtOH u se. Drinks 1-2 servings of caffeine daily . Denies recreational or illicit drug use. Exerc ises with Occasional walking and tolerates. multiple family issues with both of her mitul rs having mental illness and severe behavior disorders causing her lots of stress, as well as her Outpatient Medications Prior to Visit Medication Sig Dispense Refill [...] route Twice daily as needed for Allergies. HYDROcodone-acetaminophen (NORCO) 5-325 mg per tablet Take 1 tablet by mouth every 6 ho urs as needed for Pain (takes rarely). levothyroxine (SYNTHROID) 50 mcg tablet TAKE ONE TABLET BY MOUTH ONE TIME DAILY BEFORE BREAKFAST 90 tablet 0 lisinopril (PRINIVIL, ZESTRIL) 10 mg tablet Take 10 mg by mouth Daily. nitroglycerin (NITROSTAT) 0.[address] 0.4 mg under the tongue every 5 minute s as needed for Chest pain. ondansetron (ZOFRAN) 8 MG tablet Take 1 tablet by mouth every 8 hours as needed for Arsh sea. (Patient not taking: Reported on 12/21/2018) 12 tablet 0 pantoprazole (PROTONIX) 40 mg tablet TAKE ONE TABLET BY MOUTH ONE TIME DAILY 30 tablet 0 traZODone (DESYREL) 150 MG tablet Take 75-150 mg by mouth nightly. Mostly takes 75 mg triamcinolone (KENALOG) 0.025% ointment Apply 0.025 Units topically as needed for Rash. venlafaxine (EFFEXOR) 75 MG tablet Take 225 mg by mouth Daily. Takes Three pills in am , and none in night No facility-administered medications prior to visit. PHYSICAL EXAM: Wt Readings from Last 3 Encounters: 12/21/18 61.9 kg (136 lb 6.4 oz) 12/04/18 61.7 kg (136 lb 0.4 oz) 11/24/18 62 kg (136 lb 9.6 oz) Temp Readings from Last 3 Encounters: 12/04/18 36.6 C (97.8 F) (Oral) 11/16/18 36 C (96.8 F) (Oral) 11/11/18 36.6 C (97.8 F) (Oral) BP Readings from Last 3 Encounters: 12/21/18 114/80 12/04/18 138/76 11/24/18 119/85 Pulse Readings from Last 3 Encounters: 12/21/18 71 12/04/18 76 11/24/18 73 Vital signs: 07/15/2018: WT: 140 LB. BP: 126/80. Pulse: 73 Vital signs: 11/04/2017: WT 146 LB. BP 116/70. Pulse 55. GENERAL: Pale fatigued-looking woman, in no distress. Appears approximately stated age. HEENT: Normocephalic, atraumatic. EYES: PERRL, EOM normal. MOUTH: Oral mucosae moist, dentition adequate, no lesions noted NECK: No JVD, lymphadenopathy, thyromegaly, bruits. Carotid pulses are 2+ bilaterally LUNGS/CHEST: Clear bilaterally, with no rales, rhonchi or wheezing noted, respirations unl abored HEART: Nondisplaced PMI, regular rate and rhythm, S1, S2 normal. No murmurs, rubs or gall ops noted. ABDOMEN: Soft, nontender, no organomegaly, masses or bruits. Bowel sounds are normal in a ll 4 quadrants. The abdominal aortic pulsation is not palpable. EXTREMITIES: No edema. Radial pulses 2+ bilaterally. Femoral pulses are 2+ bilaterally wi thout bruits. DP and PT pulses are 1+ bilaterally. No clubbing. SKIN: Warm and dry, capillary refill is normal, no lesions. NEUROLOGIC: Awake, alert and oriented x 3. No focal motor or sensory deficits. PSYCHIATRIC: Appropriate, affect appears normal DATA: Blood tests: Lab Results Component Value Date WBC 8.73 12/04/2018 RBC 4.11 12/04/2018 RBC 4.28 05/25/2018 HGB 13.9 12/04/2018 HCT 40.2 12/04/2018 PLT 258 12/04/2018 Lab Results Component Value Date NA 140 12/04/2018 K 4.2 12/04/2018 CL 103 12/04/2018 CO2 30 12/04/2018 ANIONGAP 11 12/04/2018 GLUF 66 05/25/2018 BUN 7 (L) 12/04/2018 BCR 19 05/25/2018 EGFR >60 12/04/2018 Lab Results Component Value Date CHOL 182 03/05/2017 TRIG 147 03/05/2017 GLUF 66 05/25/2018 No results found for: BNP, TSH, CRP No results found for: TOTEPI CARDIAC PROCEDURES/IMAGING Last angiogram : 03/13/2015: Eizb-hg-gkjjyetb left ventricular dysfunction with wall motion abnormality consistent with old myocardial infarction in the anterior wall. One-vessel coronary artery disease. Patent vein graft to distal left anterior descend ing. Atretic left internal mammary graft and might have previously gone to the diagonal branch.n o stent seen. Akinetic mid anterior wall with hypokinetic apex. EF 45 percent VASCULAR TESTING AND PROCEDURES Last CTA chest and aorta with IV contrast:08/06/2017: IMPRESSION:Stable fusiform aneurysm al dilatation of the ascending aorta measuring up to 4 cm AP dimension. Median sternotomy with CABG. Stable right upper lobe pulmonary nodules, benign. No further follow-up of these nodules is recommended.FINDINGS:Stable 2 mm nodule along the pleural-based posterior right upper lobe sequence 6 image 24, with stable less defined 4 mm nodule in the anterior right upper lobe s equence 6 image 25. Lack of change indicates these are benign.Median sternotomy. CABG. LAD graft arising from the anterior proximal ascending aorta, patent. Fusiform dilatation of the ascending aorta, measuring up to 4.0 cm AP by 3.9 cm transverse sequence 6 image 45, st able. No mural thrombus or dissection. Aortic valve plane, sinuses of Valsalva, and sinotubu lar junction of the ascending aorta appear unremarkable. Trifurcation, proximal common carotid, right brachiocephalic, bilateral subclavian katharine delmy are unremarkable. Descending thoracic aorta with minimal soft and calcified plaque. C eliac, SMA, bilateral single renal artery origins are unremarkable. Scans through the uppe r abdomen show clips in the gallbladder fossa, otherwise unremarkable. Bone windows show mil d spondylotic changes of the spine with reversed S-shaped scoliosis of mild degree involving the thoracic spine. Creatinine prior to testing, 0.7, GFR >60 CTA chest and aorta with IV contrast: 2015: Mild fusiform ectasia of the ascending ao rta measuring up to 4.1 cm AP x 3.9 cm transverse involving the proximal to mid ascending ao rta.No evidence of dissection or pulmonary embolus.3 mm pulmonary nodule subpleural post erior right upper lobe. 4 mm infiltrative nodule in the anterior right upper lobe, nonspe cific, probably inflammatory. ECHO Last echo: 06/22/2018: Technically difficult study with suboptimal views. Sinus rhythm, sin us bradycardia. EF 55-60%. LV normal in size and wall thickness, normal diastolic function for age. RV normal in size and function. Normal size atria. Aortic valve trileaflet, mil d AI, mild calcification, no stenosis. Normal mitral valve, mild MR. Tricuspid valve amy l, mild TR. No pulmonary hypertension, RVSP 25.55 mmHg. Mild SD. No pericardial effusion. IVC WNL, normal CVP. Dilated ascending aorta 4.1 cm. No mass, no clot, no ASD, no VSD Echo: 04/15/2017: Sinus bradycardia . TAS.EF 55-60 percent. LV normal in size and wall thick ness. Mild diastolic dysfunction. WMA: Akinetic apical septum, apex. RV normal in size an d function. Normal size atria. Mild aortic calcification, mild AR, no . Mild MR, mild M AC. Tricuspid normal, mild TR. No pulmonary hypertension, RVSP 22.04 mmHg. Mild SD. No p ericardial effusion. IVC WNL, CVP 5-10. Ascending aorta dilated 3.9 cm Echo: 02/15/2015: EF 55-55 percent. LV normal in size and wall thickness. Mild global hypo kinesis with LV. Mild diastolic dysfunction, grade 1 normal for patient's age. Basal later al wall hypokinesis. RV normal in size. Normal size atrium. Aortic valve trileaflet, trac e AR no aortic stenosis. Trace MR with normal mitral valve, trace TR with normal tricuspid valve. No evidence of pulmonary hypertension, RVSP 24.79 mmHg. Mild SD. IVC normal CVP 5- 10 mmHg. 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 EKG/EVENT MONITOR EK03/03 2017: Normal sinus rhythm, T-wave inversion to anterior and lateral leads, simila r to EKG in March 2015. Low voltage QRS, poor R wave progression. Rate 69 bpm, SD 152 m s, QRS 86 ms, QTC 420 ms EK11/11/2018: (metoprolol):Sinus bradycardia, ventricular trigeminy, nonspecific T wave a bnormality to anterolateral lead. Rate 44 bpm, SD 160 ms, QRS 98 ms, QTC 397 ms, tracing pe rsonally reviewed by me, and compared to previous EKG, has trigeminal PVC, as well as fabrizio cardic heart rate. EK12/21/2018: Sinus rhythm with occasional PVCs. Rate 64 bpm, SD 158 ms, QRS 92 ms, QTC 410 ms, low voltage QRS, nonspecific T wave abnormality most noticeable in anterior leads, t racing personally reviewed by me and similar morphology to EKG performed in February 2017 LABS Labs: 03/05/2017:CMP: Sodium 137, potassium 4.1, chloride 101, glucose 80, BUN 15, creatinin e 0.8, albumin 4.3, total bilirubin 0.5, alk phos 84, AST 8, ALT 22, GFR >60 lipids: ( Lipi tor 40 mg) Cholesterol 182, triglycerides 147, HDL 50, LDL 103. CBC: WBC 10.92, hemoglobin 14.5, hematocrit 41.9, platelets 264. Thyroid: T3 26.4, T4-5 0.6, FTI 1.5, TSH 6.84 Labs: 04/28/2017: Thyroid: T3 33.5, T4 7, FTI 2.3, TSH 1.90 Labs: 10/22/2017: Amylase: 34. CMP: Sodium 141, potassium 4.2, chloride 101, glucose 89, BU N 13, creatinine 0.7, albumin 4.1, total bilirubin 0.6, alk phos 83, AST 4, ALT 23, GFR >60. Lipase: 56. CBC: WBC 8.03, hemoglobin 13.5, hematocrit 37.8, platelets 222 Labs: 12/04/2018: ( [facility]) INR 0.9. Lipase 27. CMP: Sodium 140, potassium 4.2, chloride 103, glucose 82, BUN 7, creatinine 0.66, albumin 4.6, total bili 0.5, alk phos 110, AST 12, ALT 21, GFR >68 CBC: WBC 8.73, RBC 4.11, hemoglobin 13.9, hematocrit 40.2, platelets 258 . lactic acid 1.1 ASSESSMENT & PLAN: She was today for earlier follow-up with complaints of extremely low heart rate and dizzi ness on metoprolol. She has problems as detailed below. As discussed in HPI, her EKG performed when she was still on metoprolol in November had s hown an extremely bradycardic heart rate in the 40s with trigeminal PVCs, and today's EKG sh ows sinus rhythm with only occasional PVC at 64 bpm, and she reports she is symptomatically much improved with all of her previous symptoms of extreme dizziness and lightheadedness res olved. She reports she has tried going back on it twice and has similar symptoms, and now just wis hes to remain. She has tolerated lisinopril without any difficulty,and blood pressure has been well controlled, and her renal function remains normal per her labs performed in the em ergency room in November as detailed above. I reviewed the EKG results in detail with her, and discussed with her that I would leave her metoprolol cough, especially as she is getting more GI procedures, which may predispose her to vaso vagal response. For her cardiac medications today, today, she should continue aspirin 81 mg daily, Lipitor 40 mg nightly, lisinopril 10 mg daily, and I will continue to hold her metoprolol until I se e her back in February, when she will have completed her next planned GI procedure hopefully with resolution of her abdominal pain. I will also repeat her echo in June to follow-up on her dilated ascending aorta, and her abdominal aorta has not been reported as being more aneurysmal, or dilated, per her numerous abdominal imaging. I have ordered an updated lipid panel to be performed in the next 2 weeks, along with a TSH, and BMP, and did not repeat her CMP as recently performed in November. 1. Coronary artery disease involving [place] coronary artery of [place] heart, angina presenc e unspecified 2. Hx of CABG 3. History of PTCA 4. History of myocardial infarction 5. Regional wall motion abnormality of heart 6. Ascending aortic aneurysm (HCC) 7. Hypertension goal BP (blood pressure) < 130/80 8. Mixed hyperlipidemia 9. Chronic obstructive pulmonary disease, unspecified COPD type (HCC) 10. Smoker 11. Other specified hypothyroidism Orders Placed This Encounter Procedures Basic Metabolic Panel Lipid Panel TSH, Reflex Free T4 ECG 12 lead ECHO Complete The following portions of the patient's history were personally reviewed by me and updated as appropriate: EKG tracings, other specialty provider and PCP notes,any Hospital admission and discharge summaries, any ER records , current and previous cardiac testing and procedure reports and d shahida, home heart rate and blood pressure log, medication bottles brought to visit today pers onally reviewed by me. Allergies, current medications.labs Family history, past medical history, past social history, past surgical history. Problem list. This encounter was dictated with voice recognition software and may contain inadvertent rec ognition errors. Fredi HENNESSY [facility] Cardiology 12/21/2018 docum ented in this encounter Plan of Treatment +--------+---------+ + + + | Date | Type | Specialty | Care Team | Description | +--------+---------+ + + + | 07/18/ | Office | Cardiology | Erin Limon | | | 2019 | Visit | | [address] | | | | | | [address] | | | | | | [place] [address] | | | | | | [phone] | | | | | | | | +--------+---------+ + + + + + +--------+ + + | Name | Type | Priori | Associated Diagnoses | Order Schedule | | | | ty | | | + + +--------+ + + | ECHO Complete | Echocardiog | Routin | Coronary artery | Expected: | | | [place] | e | disease involving | 06/10/2019, Expires: | | | | | [place] coronary | 12/22/2019 | | | | | artery of [place] | | | | | | heart, angina | | | | | | presence unspecified | | | | | | Hx of CABG | | | | | | History of | | | | | | myocardial | | | | | | infarction Regional | | | | | | wall motion | | | | | | abnormality of heart | | | | | | Ascending aortic | | | | | | aneurysm (HCC) | | + + +--------+ + + documented as of this encounter Procedures + +--------+ + + + | Procedure Name | Priori | Date/Time | Associated Diagnosis | Comments | | | ty | | | | + +--------+ + + + | ECG 12 LEAD | Routin | 12/21/2018 | Coronary artery | Results for this | | | e | 9:40 AM | disease involving | procedure are in the | | | | PST | [place] coronary | results section. | | | | | artery of [place] | | | | | | heart, angina | | | | | | presence unspecified | | | | | | Hx of CABG | | | | | | History of PTCA | | | | | | History of | | | | | | myocardial | | | | | | infarction Regional | | | | | | wall motion | | | | | | abnormality of heart | | | | | | Ascending aortic | | | | | | aneurysm (HCC) | | | | | | Hypertension goal BP | | | | | | (blood pressure) < | | | | | | 130/80 Mixed | | | | | | hyperlipidemia | | | | | | Chronic obstructive | | | | | | pulmonary disease, | | | | | | unspecified COPD | | | | | | type (HCC) Smoker | | + +--------+ + + + documented in this encounter Results TSH, Reflex Free T4 (12/28/2018 9:33 AM PST) + + + + + + | Component | Value | Ref Range | Performed | Pathologist | | | | | At | Signature | + + + + + + | TSH | 3.570Comment: Testing | 0.450 - 5.100 | REFERENCE | | | | performed at [facility];[address] | uIU/mL | LAB | | | | [place] | | [facility] | | | | [address];[place] [address] | | LABORATORY | | + + + + + + + + | Specimen | + + | Blood | + + + + + + + | Performing | Address | City/State/Zipcode | Phone Number | | Organization | | | | + + + + + | REFERENCE LAB | [address] [place] [address] | [place], [place] | [phone] | | [facility] | Blvd[address] | [address] | | | LABORATORY | | | | + + + + + | REFERENCE LAB | [address] [place] [address] | [place], [place] | | | [facility] | Blvd[address] | [address] | | | LABORATORY | | | | + + + + + Lipid Panel (12/28/2018 9:33 AM PST) + + + + + + | Component | Value | Ref Range | Performed | Pathologist | | | | | At | Signature | + + + + + + | Cholesterol | 152 | <200 mg/dL | REFERENCE | | | | | | LAB | | | | | | [facility] | | | | | | LABORATORY | | + + + + + + | Triglycerid | 115 | <150 mg/dL | REFERENCE | | | es | | | LAB | | | | | | [facility] | | | | | | LABORATORY | | + + + + + + | HDL | 47 | >40 mg/dL | REFERENCE | | | | | | LAB | | | | | | [facility] | | | | | | LABORATORY | | + + + + + + | LDL, | 82Comment: Testing | <100 mg/dL | REFERENCE | | | Calculated | performed at [facility];[address] | | LAB | | | | [place] | | [facility] | | | | [address];[place] [address] | | LABORATORY | | + + + + + + + + | Specimen | + + | Blood | + + + + + + + | Performing | Address | City/State/Zipcode | Phone Number | | Organization | | | | + + + + + | REFERENCE LAB | [address] [facility] | [place] | [phone] | | [facility] | Bl[address] | [address] | | | LABORATORY | | | | + + + + + | REFERENCE LAB | [address] | [place] | | | [facility] | Blvd[address] | [address] | | | LABORATORY | | | | + + + + + ECG 12 lead (12/21/2018 9:40 AM PST) + + + + + + | Component | Value | Ref Range | Performed | Pathologist | | | | | At | Signature | + + + + + + | VENTRICULAR | 64 | BPM | [facility] | | | RATE EKG | | | | | + + + + + + | ATRIAL RATE | 64 | BPM | [facility] | | + + + + + + | P-R | 158 | ms | [facility] | | | INTERVAL | | | | | + + + + + + | QRS | 92 | ms | [facility] | | | DURATION | | | | | + + + + + + | Q-T | 398 | ms | [facility] | | | INTERVAL | | | | | + + + + + + | Q-T | 410 | ms | [facility] | | | INTERVAL | | | | | | (CORRECTED) | | | | | + + + + + + | P WAVE AXIS | 8 | degrees | [facility] | | + + + + + + | QRS AXIS | -12 | degrees | [facility] | | + + + + + + | T AXIS | 68 | degrees | [facility] | | + + + + + + | INTERPRETAT | Please refer to | | [facility] | | | ION TEXT | Providers office visit | | | | | | note for Providers | | | | | | Interpretation.Confirmed | | | | | | by [facility] Butler Read Only, | | | | | | [facility] Pan ([id number]), | | | | | | health editor Antonio Jamil | | | | | | ([id number]) on 12/22/2018 | | | | | | 7:52:27 AM | | | | + + + + + + + + | Specimen | + + | | + + + + + | Narrative | Performed At | + + + | | | + + + + +---------+ + + | Performing | Address | City/State/Zipcode | Phone Number | | Organization | | | | + +---------+ + + | [facility] | | | | + +---------+ + + documented in this encounter Visit Diagnoses + + | Diagnosis | + + | Coronary artery disease involving [place] coronary artery of [place] heart, angina | | presence unspecified - Primary | + + | Hx of CABG Postsurgical aortocoronary bypass status | + + | History of PTCA Postsurgical percutaneous transluminal coronary angioplasty status | + + | History of myocardial infarction Old myocardial infarction | + + | Regional wall motion abnormality of heart Nonspecific (abnormal) findings on | | radiological and other examination of other intrathoracic organs | + + | Ascending aortic aneurysm (HCC) Thoracic aneurysm without mention of rupture | + + | Hypertension goal BP (blood pressure) < 130/80 Unspecified essential hypertension | + + | Mixed hyperlipidemia | + + | Chronic obstructive pulmonary disease, unspecified COPD type (HCC) | + + | Smoker Tobacco use disorder | + + | Other specified hypothyroidism | + + documented in this encounter
--- OUTSIDE RECORDS SUMMARY | ~2019-06-30 | XMS | Encounter Summary ---
Demographics + + + | Address | [address] | | | [place] [address] | + + + | Home Phone | | + + + | Preferred Language | Unknown | + + + | Marital Status | | + + + | Jain Affiliation | 1041 | + + + | Race | Unknown | + + + | Ethnic Group | Unknown | + + + Author + + + | Author | [facility] | | | and [place] | + + + | Organization | [facility] | | | [...] Team Providers + +------+ + | Care Pot Puncher Name | Role | Phone | + +------+ + | Filemon Roy MD | PCP | | + +------+ + Encounter Details +--------+ + + + + | Date | Type | Department | Care Team | Description | +--------+ + + + + | 08/03/ | Hospital | [facility] | Rich Frank | Pharyngoesophageal | | 2018 | Encounter | [facility] | MD Sylvester [address] | dysphagia; Screening | | | | INTRA OP [address] | [place] [address] | for colorectal | | | | BLVD [place], [place] | [phone] | cancer; Change in | | | | [address] | | bowel movement; | | | | [phone] | | Gastroesophageal | | | | [...] Date of Service: 08/03/17 1000 Status: Signed Wooden Box Maker: Rich Frank MD (Physician) [facility] Service: Gastroenterology Brief Post-op Discharge Note DISCHARGE [...] Annual physical exam, Coronary artery disease involving cherokee coronary art anastacia of cherokee heart with angina pectoris, History of PTCA, [...] [place] | | | | | | [place] [address] | | | | | | [phone] | | | | | | | [...] preparation was | | | performed by [facility], [facility], [address] | | | [place] [address] (Shoe Trimmer: Ja Celeste M.D.; IA#: [id number]). Diagnostician: Ja Celeste | | | Pathologist [...]
--- OUTSIDE RECORDS SUMMARY | ~2019-06-30 | XMS | Encounter Summary ---
Demographics + + + | Address | [address] | | | [place] [address] | + + + | Home Phone | | + + + | Preferred Language | Unknown | + + + | Marital Status | | + + + | Jew Affiliation | 1041 | + + + | Race | Unknown | + + + | Ethnic Group | Unknown | + + + Author + + + | Author | [facility] | | | and [place] | + + + | Organization | [facility] | | [...] Team Providers + +------+ + | Care Shade Classifier Name | Role | Phone | + [...] + + | 12/04/ | Emergency | [facility] | Jeremi Miramontes MD | RUQ abdominal pain | | 2019 | | MEDICAL CENTER | [address] | (Primary Dx); | | | | EMERGENCY CENTER | [place] [address] | Intrahepatic bile | | | | [address] | [phone] | duct dilation; | | | | [place], [place] | | Choledocholithiasis | | | | [address] | | | | | | [phone] | | | +--------+ + + + [...] through Care Everywhere.Abdominal Pain, Unknown Cause, (Female) (Kinyarwanda)documented in this encounter Medications at Time of [...] [place] | | | | | | [place] [address] | | | | | | [phone] | | | | | | | [...] A?MRN: | | | | | | [id number] | | | [id number] | | | riteri | | | [...] surgical candidacy. | | | (Based on [place] [employer] [place] Guidelines, 2017) [...] potential surgical candidacy. | | (Based on [place] [employer] [place] Guidelines, 2017) [...] Special | Testing performed at | | [facility] | | | Requests | [address] | | LABORATORY | | | | [place] [address] | | | | + + + + + + | RESULT | NO GROWTH 6 DAYS | | [facility] | | | | | | LABORATORY | | + + + + + + | RESULT | Testing performed at | | [facility] | | | | TCL, [address] [facility] | | LABORATORY | | | | [place], [place] | | | | | | [address]Uophnsx: Testing | | | | | | performed at [facility], [address] | | | | | | [address] [place], [place] | | | | | | [address] | | | | + + + + + + + + | Specimen | + + | Blood - Peripheral | | blood specimen | | (specimen) | + + + + + + + | Performing | Address | City/State/Zipcode | Phone Number | | Organization | | | | + + + + + | [facility] | [address] | [place] [address] | [phone] | + + + + + Lactic Acid (12/04/2018 12:17 PM PDT) + + + + + + | Component | Value | Ref Range | Performed | Pathologist | | | | | At | Signature | + + + + + + | Lactate, | 1.1Comment: Testing | 0.4 - 2.0 | [facility] | | | Serum | performed at [facility];[address] | mmol/L | LABORATORY | | | | [address];[place], [place] | | | | | | [address] | | | | + + + + + + + + | Specimen | + + | Blood | + + + + + + + | Performing | Address | City/State/Zipcode | Phone Number | | Organization | | | | + + + + + | [facility] | [address] | [place] [address] | [phone] | + + + + + Culture, [...] | | LABORATORY | | | | Blvd;[place] [address] | | | | + + + + + + | RESULT | NO GROWTH 6 DAYS | | [facility] | | | | | | LABORATORY | | + + + + + + | RESULT | Testing performed at | | [facility] | | | | TCL, [address] | | LABORATORY | | | | [place], [place], [place] | | | | | | [address]: Testing | | | | | | performed at [facility], [address] | | | | | | [address], [place], [place] | | | | | | [address] | | | | + + + + + + + + | Specimen | + + | Blood - Peripheral | | blood specimen | | (specimen) | + + + + + + + | Performing | Address | City/State/Zipcode | Phone Number | | Organization | | | | + + + + + | [facility] | [address] | [place] [address] | [phone] | + + + + + Protime [...] | | | | | performed at [facility] | | | | | | [address] [facility];[place], [place] | | | | | | [address] | | | | + + + + + + + + | Specimen | + + | Blood | + + + + + + + | Performing | Address | City/State/Zipcode | Phone Number | | Organization | | | | + + + + + | [facility] | [address] | [place] [address] | [phone] | + + + + + Lipase (12/04/2018 12:01 PM PDT) + + + + + + | Component | Value | Ref Range | Performed | Pathologist | | | | | At | Signature | + + + + + + | Lipase | 27Comment: Testing | 12 - 53 U/L | [place] | | | | performed at [facility];[address] | | LABORATORY | | | | [address];[place] | | | | | | [address] | | | | + + + + + + + + | Specimen | + + | Blood | + + + + + + + | Performing | Address | City/State/Zipcode | Phone Number | | Organization | | | | + + + + + | [facility] | [address] | [place] [address] | [phone] | + + + + + Comprehensive [...] | | | | | performed at [facility];[address] | | | | | | [facility];[place], [place] | | | | | | [address] | | | | + + + + + + + + | Specimen | + + | Blood | + + + + + + + | Performing | Address | City/State/Zipcode | Phone Number | | Organization | | | | + + + + + | [facility] | [address] | [place] [address] | [phone] | + + + + + CBC [...] | | | Absolute | performed at [facility];[address] | K/uL | LABORATORY | | | | [address];[place], [place] | | | | | | [address] | | | | + + + + + + + + | Specimen | + + | Blood | + + + + + + + | Performing | Address | City/State/Zipcode | Phone Number | | Organization | | | | + + + + + | [facility] | [address] | [place] [address] | [phone] | + + + + + documented [...]
--- OUTSIDE RECORDS SUMMARY | ~2019-06-30 | XMS | Encounter Summary ---
Demographics + + + | Address | [address] | | | [place] [address] | + + + | Home Phone | | + + + | Preferred Language | Unknown | + + + | Marital Status | | + + + | Caodaism Affiliation | 1041 | + + + | Race | Unknown | + + + | Ethnic Group | Unknown | + + + Author + + + | Author | [facility] | | | and [place] | + + + | Organization | [facility] | | [...] Team Providers + +------+ + | Care Fulfillment Associate Name | Role | Phone | + +------+ + | Fabrice Hansen DO | PCP | | + +------+ + Reason for Visit + + + | Reason | Comments | + + + | Lab Results | | + + + Encounter Details +--------+ + + + + | Date | Type | Department | Care Team | Description | +--------+ + + + + | 01/03/ | Telephone | [facility] | Erin Limon | Lab Results | | 2019 | | CARDIOLOGY RUDY | [address] | | | | | [address] | [address] | | | | | [address] | [place] [address] | | | | | [place] | [phone] | | | | | [address] | | | | | | [phone] | | | +--------+ + + + [...] [place] | | | | | | [place] [address] | | | | | | [phone] | | | | | | | | +--------+---------+ + + + documented as of this encounter Visit Diagnoses Not on filedocumented in this encounter"
--- OUTSIDE RECORDS SUMMARY | ~2019-06-30 | XMS | Encounter Summary ---
Demographics + + + | Address | [address] | | | [place] [address] | + + + | Home Phone | | + + + | Preferred Language | Unknown | + + + | Marital Status | | + + + | Orthodoxy Affiliation | 1041 | + + + | Race | Unknown | + + + | Ethnic Group | Unknown | + + + Author + + + | Author | [facility] | | | and [place] | + + + | Organization | [facility] | | | and [...] Team Providers + +------+ + | Care Regional Ehs Manager Name | Role | Phone | + +------+ + | Fabrice Hansen DO | PCP | | + +------+ + Reason for Visit + + + | Reason | Comments | + + + | Hospital Follow-up | | + + + Encounter Details +--------+ + + + + | Date | Type | Department | Care Team | Description | +--------+ + + + + | 01/04/ | Telephone | [place] | Robbie Ho MD | Hospital Follow-up | | 2019 | | Internal Medicine | [address] | | | | | Hospitalists [address] [place], [place] | | | | | [address] [place], [place] | [address] | | | | | [address] | | | | | | [phone] | | | +--------+ + + + [...] | | | | | [place] [address] | | | | | | [phone] | | | | | | | | +--------+---------+ + + + documented as of this encounter Visit Diagnoses Not on filedocumented in this encounter"
--- OUTSIDE RECORDS SUMMARY | ~2019-06-30 | XMS | Encounter Summary ---
Demographics + + + | Address | [address] | | | [place] [address] | + + + | Home Phone | | + + + | Preferred Language | Unknown | + + + | Marital Status | | + + + | Confucianist Affiliation | 1041 | + + + | Race | Unknown | + + + | Ethnic Group | Unknown | + + + Author + + + | Author | [facility] | | | and [place] | + + + | Organization | [facility] | | [...] Team Providers + +------+ + | Care Armoured Corps Officer Name | Role | Phone | + [...] Specialty | Liver and | Diagnoses | Love, | Tammi, | | | Services | Pancreas | Calculus of | DO Brandi | MD Miguel | | | Required | Surgery | bile duct | [address] | | | | | with | [address] | [address] [address] | | | | | cholangitis | [place] | [place] | | | | | and | [address] | [address] Phone: | | | | | obstruction, | Phone: | [phone] | | | | | unspecified | [phone] | Fax: | | | | | cholangitis | Fax: | [phone] | | | | | acuity | [phone] | | | | | | Intrahepatic | | | | | | | bile duct | | | | | | | dilation | | | | | | | 6-8 weeks | | | | | | | - | | | | | | | Procedures | | | | | | | ERCP-GA | | | +--------+ + + + + + Encounter Details +--------+ + + + + | Date | Type | Department | Care Team | Description | +--------+ + + + + | 11/11/ | Orders Only | [facility] | Brandi Love DO | Calculus of bile | | 2019 | | Internal Medicine | [address] | duct with | | | | Residency [place] | [place] [address] | cholangitis and | | | | [address] | [phone] | obstruction, | | | | [place] | | unspecified | | | | [address] | | cholangitis acuity | | | | [phone] | | (Primary Dx); | | | | | | Intrahepatic bile | | | | | | duct dilation | +--------+ + + + + Social [...] F | | | | | | [place] [address] | | | | | | [phone] | | | | | | | | +--------+---------+ + + + + + +--------+ + + | Name | Type | Priori | Associated Diagnoses | Order Schedule | | | | ty | | | + + +--------+ + + | * [facility] | Outpatient | Routin | Calculus of bile | Ordered: 11/11/2018 | | procedures and | Referral | e | duct with | | | Liver/Pancreas - | | | cholangitis and | | | Andrea Cadena, | | | obstruction, | | | Braxton Mcgovern | | | unspecified | | | | | | cholangitis acuity | | | | | | Intrahepatic bile | | | | | | duct dilation | | + + +--------+ + + documented as of this encounter Visit Diagnoses + + | Diagnosis | + + | Calculus of bile duct with cholangitis and obstruction, unspecified cholangitis acuity | | - Primary | + + | Intrahepatic bile duct dilation Other specified disorders of biliary tract | + + documented in this encounter"
--- OUTSIDE RECORDS SUMMARY | ~2019-06-30 | XMS | Encounter Summary ---
Demographics + + + | Address | [address] | | | [place] [address] | + + + | Home Phone | | + + + | Preferred Language | Unknown | + + + | Marital Status | | + + + | Jewish Affiliation | 1041 | + + + | Race | Unknown | + + + | Ethnic Group | Unknown | + + + Author + + + | Author | [facility] | | | and [place] | + + + | Organization | [facility] | | [...] Providers + +------+ + | Care Community Manager Name | Role | Phone | [...] | +--------+ + + + + | 11/12/ | Telephone | [place] | Freddie Walton MD | Hospital Follow-up | | 2019 | | Internal Medicine | [address] [facility] [address] | | | | | Hospitalists [address] | [place], [place] | | | | | [address] [place], [place] | [address] | | | | | [address] | | | | | | [phone] | | | +--------+ + + + [...] [place] | | | | | | [place] [address] | | | | | | [phone] | | | | | | | | +--------+---------+ + + + documented as of this encounter Visit Diagnoses Not on filedocumented in this encounter"
--- OUTSIDE RECORDS SUMMARY | ~2019-06-30 | XMS | Encounter Summary ---
Demographics + + + | Address | [address] | | | [place] [address] | + + + | Home Phone | | + + + | Preferred Language | Unknown | + + + | Marital Status | | + + + | Yazidi Affiliation | 1041 | + + + | Race | Unknown | + + + | Ethnic Group | Unknown | + + + Author + + + | Author | [facility] | | | and [place] | + + + | Organization | [facility] | | | [...] Team Providers + +------+ + | Care Global Category Manager Name | Role | Phone | [...] Provider Unknown | | | | | [place], [place] | [phone] | | | | | [address] | | | | | | [phone] | | | +--------+ + + + [...] | | | | | [place] [address] | | | | | | [phone] | | | | | | | | +--------+---------+ + + + documented as of this encounter Visit Diagnoses Not on filedocumented in this encounter"
--- OUTSIDE RECORDS SUMMARY | ~2019-06-30 | XMS | Encounter Summary ---
Demographics + + + | Address | [address] | | | [place] [address] | + + + | Home Phone | | + + + | Preferred Language | Unknown | + + + | Marital Status | | + + + | Hinduism Affiliation | 1041 | + + + [...] Team Providers + +------+ + | Care Basketball Scout Name | Role | Phone | + +------+ + | Fabrice Hansen DO | PCP | | + +------+ + Encounter Details +--------+ + + + + | Date | Type | Department | Care Team | Description | +--------+ + + + + | 04/08/ | Orders Only | [facility] | Fabrice Hansen | | | 2019 | | [facility] | [address] | | | | | [facility] [address] | [address] [address] | | | | | [address] | [address] [place], [place] | | | | | [place], [place] | [address] | | | | | [address] | | | | | | [phone] | | | +--------+ + + + [...] [place] | | | | | | [place] [address] | | | | | | [phone] | | | | | | | | +--------+---------+ + + + documented as of this encounter Visit Diagnoses Not on filedocumented in this encounter"
--- OUTSIDE RECORDS SUMMARY | ~2019-06-30 | XMS | Encounter Summary ---
Demographics + + + | Address | [address] | | | [place] [address] | + + + | Home Phone | | + + + | Preferred Language | Unknown | + + + | Marital Status | | + + + | Judaism Affiliation | [id number] | + + + [...] Team Providers + +------+ + | Care Jeweler Apprentice Name | Role | Phone | + +------+ + | Fabrice Hansen DO | PCP | | + +------+ + Encounter Details +--------+ + + + + | Date | Type | Department | Care Team | Description | +--------+ + + + + | 02/15/ | Orders Only | [facility] | Marshall Gutierrez, | | | 2015 | | [facility] [place] | MD [address] | | | | | [address] | [place] [address] | | | | | [address] | [phone] | | | | | [place], [place] | | | | | | [address] | | | | | | [phone] | | | +--------+ + + + [...] F | | | | | | [place] [address] | | | | | | [phone] | | | | | | | | +--------+---------+ + + + documented as of this encounter Procedures + +--------+ + + + | Procedure Name | Priori | Date/Time | Associated Diagnosis | Comments | | | ty | | | | + +--------+ + + + | NM MYOCARDIAL | Routin | 02/15/2015 | | Results for this | | PERFUSION MULT SPECT | e | 11:31 AM | | procedure are in the | | | | PST | | results section. | + +--------+ + + + documented in this encounter Results NM Myocardial Perfusion Mult SPECT (02/15/2015 11:31 AM PST) + + | Specimen | + + | | + + + + + | Narrative | Performed At | + + + | [facility] CARDIOLOGY Nuclear Treadmill Stress Test With | | | Lexiscan Intervention INDICATION FOR TEST: 02/15/2015 RISK | | | FACTORS: hypertension, hyperlipidemia, tobacco, family history | | | Previous Cardiac Procedures: none PROCEDURE: Edin protocol. Rest | | | dose- 11.3 mCi of Tc-99 Myoview given intravenously. Stress dose- At | | | 02:50 minutes 31.9 mCi of Tc-99 Myoview given intravenously. Injected | | | 0.4 mg IV of Lexiscan over 10 seconds at 02:15 minutes to complete | | | stress.50 mg of aminophylline was given IV. Effective Dose | | | Equivalent: 14.8 mSv. Predicted exercise time was 04:00 minutes. | | | Predicted Maximum HR: 152. Predicted 85% Max HR: 129. REST DATA: | | | HR: 57 bpm. BP: 123/78. ECG: Sinus rhythm rate 58. Low voltage. Slow | | | R wave progression. Nonspecific ST and T wave abnormalities. | | | STRESS DATA: Exercise Time: 01:56 minutes, HR achieved: 95 bpm, Max | | | BP: 123/78. RPP: [id number]. METS: 4.60. Symptoms lightheaded, nausea, | | | headache The test was terminated due to Lexiscan intervention for | | | lightheaded, patient walked to 62% MPHR. ECG: No arrhythmias. No | | | ischemia. EJECTION FRACTION: REST EF: 59% STRESS EF: 56%. | | | IMAGING: The quality of the images are good. No artifacts are seen. | | | SPECT images were abnormal showing a large dense anteroapical defect | | | that undergoes partial improvement at rest. Gated images show abnormal | | | thickening in the apical region and global hypokinesis post stress | | | ejection fraction 56%. IMPRESSIONS: Poor exercise tolerance | | | Inability to reach target heart rate Uneventful chemical stress | | | infusion No ECG evidence of arrhythmia or ischemia Abnormal | | | perfusion study showing a large dense anteroapical defect with partial | | | improvement Mild global hypokinesis No comparison studies available | | | Marshall Gutierrez MD, FACC, FACP, [facility] | | + + + + + | Procedure Note | + + | Dex, Rad Conversion - 09/30/2018 8:30 PM [facility] CARDIOLOGYNuclear | | Treadmill Stress Test With Lexiscan Intervention INDICATION FOR TEST: 02/15/2015 RISK | | FACTORS: hypertension, hyperlipidemia, tobacco, family history Previous Cardiac | | Procedures: none PROCEDURE: Edin protocol. Rest dose- 11.3 mCi of Tc-99 Myoview given | | intravenously. Stress dose- At 02:50 minutes 31.9 mCi of Tc-99 Myoview given | | intravenously. Injected 0.4 mg IV of Lexiscan over 10 seconds at 02:15 minutes to | | complete stress.50 mg of aminophylline was given IV. Effective Dose Equivalent: 14.8 | | mSv. Predicted exercise time was 04:00 minutes. Predicted Maximum HR: 152. Predicted 85% | | Max HR: 129. REST DATA: HR: 57 bpm. BP: 123/78. ECG: Sinus rhythm rate 58. Low | | voltage. Slow R wave progression. Nonspecific ST and T wave abnormalities. STRESS DATA: | | Exercise Time: 01:56 minutes, HR achieved: 95 bpm, Max BP: 123/78. RPP: [id number]. METS: | | 4.60. Symptoms lightheaded, nausea, headache The test was terminated due to Lexiscan | | intervention for lightheaded, patient walked to 62% MPHR. ECG: No arrhythmias. No | | ischemia. EJECTION FRACTION: REST EF: 59% STRESS EF: 56%. IMAGING:The quality of the | | images are good. No artifacts are seen. SPECT images were abnormal showing a large dense | | anteroapical defect that undergoes partial improvement at rest. Gated images show | | abnormal thickening in the apical region and global hypokinesis post stress ejection | | fraction 56%. IMPRESSIONS:Poor exercise toleranceInability to reach target heart | | rateUneventful chemical stress infusionNo ECG evidence of arrhythmia or ischemiaAbnormal | | perfusion study showing a large dense anteroapical defect with partial improvementMild | | global hypokinesisNo comparison studies available Marshall Gutierrez MD, FACC, FACP, FASNC | | | |The quality of the images are good. No artifacts are seen. SPECT images were abnormal showi ng a large dense anteroapical defect that undergoes partial improvement at rest. Gated image s show abnormal thickening in the | |apical region and global hypokinesis | |post stress ejection fraction 56%. | | | |IMPRESSIONS: | |Poor exercise tolerance | |Inability to reach target heart rate | |Uneventful chemical stress infusion | |No ECG evidence of arrhythmia or ischemia | |Abnormal perfusion study showing a large dense anteroapical defect with partial improvement | |Mild global hypokinesis | |No comparison studies available | | | |Marshall Gutierrez MD, FACC, FACP, FASNC | | | | | + + documented in this encounter Visit Diagnoses Not on filedocumented in this encounter"
--- OUTSIDE RECORDS SUMMARY | ~2019-06-30 | XMS | Encounter Summary ---
Demographics + + + | Address | [address] | | | [place] [address] | + + + | Home Phone | | + + + | Preferred Language | Unknown | + + + | Marital Status | | + + + | Yarsani Affiliation | [id number] | + + + | Race | Unknown | + + + | Ethnic Group | Unknown | + + + Author + + + | Author | [facility] | | | and [place] | + + + | Organization | [facility] | | | and [place] | + [...] Team Providers + +------+ + | Care Play Leader Name | Role | Phone | + [...] + + | Authorized | Specialty | Sleep | Diagnoses | Braxton, | Abdirizak, | | | Services | Medicine | Coronary | Erin Francis, | Marshall Perry MD | | | Required | | artery | RATING EXAMINER [address] | 19 | | | | | disease | PAN [address] | [place] | | | | | involving | ZIA [address] | [address] | | | | | [place] | [place] | [address] | | | | | coronary | [address] | [place] | | | | | artery of | Phone: | [phone] Phone: | | | | | [place] | [phone] | [phone] | | | | | heart, | Fax: | Fax: | | | | | angina | [phone] | [phone] | | | | | presence | [...] | | | | | | | Hypertension | | | | | | | goal BP | | | | | | | (blood | | | | | | | pressure) < | | | | | | | 130/80 | | | | | | | Chronic | | | | | | | obstructive | | | | | | | pulmonary | | | | | | | disease, | | | | | | | unspecified | | | | | | | COPD type | | | | | | | (HCC) | | | | | | | Smoker | | | | | | | Obstructive | | | | | | | sleep apnea | | | | | | | syndrome | | | + + + + + + + Reason for Visit + + + | Reason | Comments | + + + | Follow-up, Office | 2 month | | Visit | | + + + Encounter Details +--------+---------+ + + + | Date | Type | Department | Care Team | Description | +--------+---------+ + + + | 02/23/ | Office | [facility] | Erin Limon | Coronary artery | | 2019 | Visit | CARDIOLOGY [place] | [address] | disease involving | | | | [address] | [address] | [place] coronary | | | | [address] [place] | [place] [address] | artery of [place] | | | | [address] | [phone] | heart, angina | | | | [phone] | | presence unspecified | | | [...] | | | | | | type ([facility]); Smoker; | | | | | | Obstructive sleep | | | | | | apnea syndrome | +--------+---------+ + + + Social History [...] in this encounter Patient Instructions Patient Instructions BraxtonErin, RATING EXAMINER - 02/23/2019 9:30 AM PST I have referred you to Dr. Reveles at [facility] , call [phone] for an appoi ntment next week No changed to medications today I will see you in July afte Echo to be done in June You can establish care with Dr. 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 About half of allpeople who have ever smok ed have been able to quit. Most peoplewho still smoke want to quit. Here are some of the b est ways to stop smoking. Keep trying Most smokers make many attempts at quitting before they are successful. It s important no t to give up. Go cold turkey Mostformer smokers quit cold turkey (all at once). Trying to cut back gradually doesn't s eem to work as well, perhaps because it continues the smoking habit. Also, it is possible to inhale more while smoking fewer cigarettes. This results in the same amount of nicotine in your body. Get support Support programs can be a big help, especially for heavy smokers. These groups offer lectur es, ways to change behavior, and peer support. Here are some ways to find a support program: Free national quitline: 183-UIIN-RXS (183-205-9157). Hospital quit-smoking programs. [place] [employer]: (204.923.8649). [place] [employer] (742-712-4994). Support at home is important too. Nonsmokers can offer praise and encouragement. If the smo ker in your life finds it hard to quit, encourage them to keep trying. Tdku-gdz-fmhkzde medicines Nicotine replacement therapymay make quittingeasier. Certain aids, such as the nicotine patch, gum, and lozenges, are available without a prescription. Itis best to use these un joan a doctor s care, though. The skin patch provides a steady supply of nicotine. Nicotine gum and lozenges givetemporary bursts of low levels of nicotine. Both methods reduce the craving for cigarettes. Warning: If youhave nausea, vomiting, dizziness, weakness, or a fa st heartbeat, stop using these products and see your doctor. Prescription medicines After reviewingyour smoking patterns and past attempts to quit, your doctor may offer a p rescription medicine such as bupropion, varenicline, a nicotine inhaler, or nasal spray. Eac h has advantages and side effects. Your doctor can review these with you. Health benefits of quitting The benefits of quitting start right away and keep improving the longer you go without smok ing.These benefits occur at any age. So whether you are 17 or 70, quitting is a good dec ision. Some of the benefits include: 20 minutes: Blood pressure and pulse return to normal. 8 hours: Oxygen levels return to normal. 2 days: Ability to smell and taste begin to improve as damaged nerves regrow. 2 to 3 weeks: Circulation and lung function improve. 1 to 9 months: Coughing, congestion, and shortness of breath decrease; tiredness decreas es. 1 year: Risk of heart attack decreases by half. 5 years: Risk of lung cancer decreases by half; risk of stroke becomes the same as a non smoker s. For more on how to quit smoking, try these online resources: AbleSky.gov "Clearing the Air" booklet from the National Cancer [place]: AirXPfree.gov/sites/defau /files/pdf/ambpzxsi-nwe-ohn-accessible.pdf Date Last Reviewed: 04/09/201619992169-[address] [employer] [place] [address]. All righ ts reserved. This information is not intended as a substitute for professional medical care. Always follow your healthcare professional's instructions. documented in this encounter Progress Notes Erin Limon FNP - 02/23/2019 9:30 AM PSTFormatting of this note might be differe nt from the original. Date of visit: 02/23/2019 Primary Care Physician: Fabrice Hansen DO CHIEF COMPLAINT: Chief Complaint Patient presents with Follow-up, Office Visit 2 month HISTORY OF PRESENT ILLNESS: Ms. Sharon Way is a 73-year-old woman who is here today for 2 month follow up and l ab results Today I reviewed all available records from electronic medical record, and from outside [facility]. She is a patient of Dr. Gutierrez and last seen by him 07/15/2018 when Echo Reviewed , and order ed another Echo for next year , and continued on Metoprolol, and Lisinopril 10 mg She has a history of coronary artery disease with previous stenting to her LAD in 2000, o pen heart surgery in 2001 in [place], previous history of myocardial infarction in 2001, mil d heart failure with EF of 45 percent, small fusiform ascending aortic aneurysm, hypertensio n, hyperlipidemia, small history of small pulmonary nodule, COPD and asthma, depression with conversion disorder in 2014, hypothyroidism, and current smoker. She also has ongoing issues with choledocholithiasis complicated by cholangitis, as pily hagen below. Her current and previous testing and procedures are detailed below. When I saw her last 12/21/2018, I was continuing to work with her to quit smoking, and or dered her an updated CMP and lipid panel , and Echo ordered for June 2019 . Since I saw her last, she was seen in [place]. She had previous ERCP with stent placed 11/09/18 for choledocholithiasis. Her postprocedure course was complicated by cholangitis. S he was again admitted on 12/31/2018 following ERCP with stent removal. and follow up stent removal 01/01/2019. Discharge summary noted she still one more branch of left intrahepatic biliary ducts with stones and a tight stricture that could not be cannulated. She was referred to Dr. Braxton torres or possible left hepatectomy, and she will see him after gets MRI of abdomen in March at [facility] She had previous history of admission for severe sepsis, pneumonia and a liver abscess aft er she became ill when visiting her daughter in [place] 02/01/2018, and was then hospitaliz ed February 21-to March 02 with sepsis secondary to Klebsiella bacteremia and discharged wi th 10-day course of Cipro. She then developed frequent septic shock and was sent to [facility] 03/03/2018-03/15/2018 for further management. She had a liver abscess in her right hepatic lobe which was drained, and she was treated with IV antibiotics, and followed by infectious diseases with plan antibiotics through April [address] [facility] in [facility]. She reports today that she has recovered from her surgery , and no current abdominal p ain , but tired of being hospitalized, and seeing specialists. She was also told she had sle ep apnea when hospitalized. She reports she has only very rare palpitations, but denies any chest pain today, and no fu rther bradycardia since off Metoprolol,and denies any dyspnea, dizziness, lightheadedness, or syncope. She also denies any LE edema, or any signs or symptoms of TIA or stroke She is still smoking, but has reduced her smoking to approximately 1 pack every 3 days. She reports she looked to buy patches, but too expensive, and did not tolerate Chantix. She has a computer terminal operator friend who is an RN whom she speaks to on the phone, and is very suppo rtive of her efforts to quit smoking. She feels she is moving closer to quitting, has now all of her siblings have quit, her eduardo salazarband does not smoke, and the only one who smokes is her daughter, who continues to have le gal problems, and has been in residential. She brought her medications to the clinic [...] cough Denies hemoptysis or excessive sputum production. Advised had sleep apnea dur ing 12/2018 hospitalization. Denies orthopnea, PND. Cardiovascular: Denies chest pain, palpitations and leg swelling. Denies history of rheuma tic fever. Denies claudication . Gastrointestinal: GERD 02/2018: sepsis, and liver abscess, . 11/09/2018: choledocholithiasis, ERCP w/ biliary sphincterotomy and stent placement, and dilation of left intrahepatic duct stricture and developed acute cholangitis. abdominal pain resolved , needs liver dissectio n, see HPI. Denies vomiting, and blood in stool. Genitourinary: [...] multiple family issues with both of her daughte rs having mental illness and severe behavior [...] tablet Take 10 mg by mouth Daily. multiple vitamins w/minerals (OCUVITE-LUTEIN) TABS Take 1 tablet by mouth Daily. naproxen sodium (ANAPROX) 220 MG tablet Take 220 mg by mouth as needed. nitroglycerin (NITROSTAT) 0.[address] [...] Take 225 mg by mouth Daily. No facility-administered medications prior to visit. PHYSICAL EXAM: Wt Readings from Last 3 Encounters: 02/23/19 62.3 kg (137 lb 4.8 oz) 01/10/19 61.2 kg (135 lb) 12/31/18 60.6 kg (133 lb 9.6 oz) Temp Readings from Last 3 Encounters: 01/10/19 36.4 C (97.5 F) (Infrared Device) 01/01/19 36.8 C (98.2 F) (Temporal) 12/04/18 36.6 C (97.8 F) (Oral) BP Readings from Last 3 Encounters: 02/23/19 118/70 01/10/19 (!) 136/93 01/01/19 101/62 Pulse Readings from Last 3 Encounters: 02/23/19 72 01/10/19 69 01/01/19 53 Vital signs: 07/15/2018: WT: 140 LB. BP: [...] tests: Lab Results Component Value Date WBC 8.35 01/01/2019 WBC 10.08 12/28/2018 RBC 3.43 (L) 01/01/2019 RBC 4.28 05/25/2018 HGB 11.2 (L) 01/01/2019 HCT 33.3 (L) 01/01/2019 HCT 38.9 12/28/2018 PLT 227 01/01/2019 PLT 262 12/28/2018 Lab Results Component Value Date NA 140 01/01/2019 K 3.9 01/01/2019 CL 105 01/01/2019 CO2 25 01/01/2019 ANIONGAP 10 01/01/2019 GLUF 66 05/25/2018 BUN 15 01/01/2019 EGFR 89 (L) 01/01/2019 Lab Results Component Value Date CHOL 152 12/28/2018 CHOL 182 03/05/2017 TRIG 115 12/28/2018 LDL 82 12/28/2018 GLUF 66 05/25/2018 Lab Results Component Value Date TSH 3.570 12/28/2018 No results found for: TOTEPI CARDIAC PROCEDURES/IMAGING Last angiogram : 03/13/2015: Kxkz-fa-lvhrxuiz left ventricular dysfunction with wall motion abnormality [...] No pulmonary hypertension, RVSP 25.55 mmHg. Mild CO. No pericardial effusion. IVC WNL, normal CVP. [...] No pulmonary hypertension, RVSP 22.04 mmHg. Mild CO. No p ericardial effusion. IVC WNL, CVP [...] of pulmonary hypertension, RVSP 24.79 mmHg. Mild CO. IVC normal CVP 5- 10 mmHg. 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 EKG/EVENT MONITOR EK03/03 2017: Normal sinus rhythm, T-wave inversion to anterior and lateral leads, simila r to EKG in March 2015. Low voltage QRS, poor R wave progression. Rate 69 bpm, CO 152 m s, QRS 86 ms, QTC 420 ms EK11/11/2018: (metoprolol):Sinus bradycardia, ventricular trigeminy, nonspecific T wave a bnormality to anterolateral lead. Rate 44 bpm, CO 160 ms, QRS 98 ms, QTC 397 ms, tracing pe rsonally reviewed by me, and compared to previous EKG, has trigeminal PVC, as well as fabrizio cardic heart rate. EK12/21/2018: Sinus rhythm with occasional PVCs. Rate 64 bpm, CO 158 ms, QRS 92 ms, QTC 410 [...] hematocrit 37.8, platelets 222 Labs: 12/04/2018: ( [facility] ER) INR 0.9. Lipase 27. CMP: Sodium 140, potassium 4.2, chloride 103, glucose 82, BUN 7, creatinine 0.66, albumin 4.6, total bili 0.5, alk phos 110, AST 12, ALT 21, GFR >68 CBC: WBC 8.73, RBC 4.11, hemoglobin 13.9, hematocrit 40.2, platelets 258 . lactic acid 1.1 Labs: 12/28/2018: Lipids:( atorvastatin 40 mg) Cholesterol 152, triglycerides 115, HDL 47, LDL 82 CMP: Sodium 140, potassium 4.1, chloride 104, glucose 86, BUN 12, creatinine 0.7, ca lcium 9.4, albumin 3.9, total bili 0.6, alk phos 113, AST 6, ALT 23, GFR >60. CBC: WBC 10.0 8, RBC 3.97, hemoglobin 13.7, hematocrit 38.9, platelets 262 thyroid: TSH 3.57 ASSESSMENT & PLAN: She was today for 2 month follow up , and lab results. She has problems as detailed below. Her labs performed in December 28 are detailed above and show lipids well controlled on Atorvastatin 40 mg, with normal CMP, normal CBC , and thyroid function . I reviewed the labs in detail with her . Her bradycardia , and dizziness has remained resolved since off metoprolol, and she has t olerated lisinopril without any difficulty,and blood pressure has been well controlled, and her renal function remains normal For her cardiac medications today, today, she should continue aspirin 81 mg daily, Lipitor 40 mg nightly, lisinopril 10 mg daily, and I will continue to hold her metoprolol . She was diagnosed with sleep apnea during last hospitalization, and I have referred her for further evaluation and treatment to Dr. Reveles at [facility] I will also repeat her echo in June to follow-up on her dilated ascending aorta, and her abdominal aorta has not been reported as being more aneurysmal, or dilated, per her numerous abdominal imaging. I have also again encouraged her to quit smoking, and given her more resources and suggest ions to help her. I will see her back in July to follow up on Echo results but sooner if needed. I will have her establish care with Dr. Abbott as her primary toolmaker grade three in December, as s he prefers to see cardiology in [place] if possible . 1. Coronary artery disease involving [place] coronary artery of [place] heart, angina presenc e unspecified 2. Hx of CABG 3. History of PTCA 4. History of myocardial infarction 5. Regional wall motion abnormality of heart 6. Ascending aortic aneurysm (HCC) 7. Hypertension goal BP (blood pressure) < 130/80 8. Mixed hyperlipidemia 9. Chronic obstructive pulmonary disease, unspecified COPD type (HCC) 10. Smoker 11. Obstructive sleep apnea syndrome Orders Placed This Encounter Procedures Ambulatory Referral to Sleep Medicine The following portions of the patient's history were personally reviewed by me and updated as appropriate: EKG tracings, other specialty provider and PCP notes,any Hospital admission and discharge summaries, any ER records , current and previous cardiac testing and procedure reports and d shahida, medication bottles brought to visit today personally reviewed by me. Allergies, current medications.labs Family history, past medical history, past social history, past surgical history. Problem list. This encounter was dictated with voice recognition software and may contain inadvertent rec ognition errors. DannyPenny Braxton HENNESSY [facility] Cardiology 02/23/2019 Erin Reid FNP - 02/23/2019 9:30 AM PST Date of visit: 02/23/2019 Primary Care Physician: Fabrice Hansen DO CHIEF COMPLAINT: Chief Complaint Patient presents with Follow-up, Office Visit 2 month HISTORY OF PRESENT ILLNESS: Ms. Sharon Way is a 73-year-old woman who is here today for 2 month follow up and l ab results Today I reviewed all available records from electronic medical record, and from outside [facility]. She is a patient of Dr. Gutierrez and last seen by him 07/15/2018 when Echo Reviewed , and order ed another Echo for next year , and continued on Metoprolol, and Lisinopril 10 mg She has a history of coronary artery disease with previous stenting to her LAD in 2000, o pen heart surgery in 2001 in [place], previous history of myocardial infarction in 2001, mil d heart failure with EF of 45 percent, small fusiform ascending aortic aneurysm, hypertensio n, hyperlipidemia, small history of small pulmonary nodule, COPD and asthma, depression with conversion disorder in 2014, hypothyroidism, and current smoker. Her Current And previous testing and procedures are detailed below. When I saw her last, I was continuing to work with her to quit smoking, and also increase her exercise . Since I saw her last, she was seen in [place]. She had previoiusn ERCP with stent placed 11/09/18 for choledocholithiasis. Her postprocedure course was complicated by cholangitis. She was again admitted on 12/31/2018 following ERCP with stent removal. and follow up stent removal 01/01/2019. She had previous history of admission for severe sepsis, pneumonia and a liver abscess aft er she became ill when visiting her daughter in [place] 02/01/2018, and was then hospitaliz ed February 21-to March 02 with sepsis secondary to Klebsiella bacteremia and discharged wi th 10-day course of Cipro and then developed frequent septic shock and was [facility] 03/03[facility]2018-03/15/2018 for further management. She had a liver abscess in her r ight hepatic lobe which was drained, and she was treated with IV antibiotics, and followed b y infectious diseases with plan antibiotics through April [address] [facility] in [place] . She continued to have abdominal pain, and was evaluated by GI nurse practitioner Padmaja meléndez on November 02, and referred to [facility] for ERCP for choledocholithiasis with c holangitis, and had ERCP w/ biliary sphincterotomy and stent placement, and dilation of lef t intrahepatic duct stricture 11/09/2018 and developed acute cholangitis, treated with antib iotics. She was admitted again to the emergency room at [facility] on November 16 with abdominal pain, and consequently followed up with GI BENCH BORING MACHINE OPERATORPhoebe Le 11/24/2018 when doing better, but then [...] November 11, 2018 during her hospitalization in [place] showed a bradycardic heart rate of 4 [...] le gal problems, and has been in residential. She brought her medications to the clinic [...] tablet Take 10 mg by mouth Daily. multiple vitamins w/minerals (OCUVITE-LUTEIN) TABS Take 1 tablet by mouth Daily. naproxen sodium (ANAPROX) 220 MG tablet Take 220 mg by mouth as needed. nitroglycerin (NITROSTAT) 0.[address] [...] Take 225 mg by mouth Daily. No facility-administered medications prior to visit. PHYSICAL EXAM: Wt Readings from Last 3 Encounters: 02/23/19 62.3 kg (137 lb 4.8 oz) 01/10/19 61.2 kg (135 lb) 12/31/18 60.6 kg (133 lb 9.6 oz) Temp Readings from Last 3 Encounters: 01/10/19 36.4 C (97.5 F) (Infrared Device) 01/01/19 36.8 C (98.2 F) (Temporal) 12/04/18 36.6 C (97.8 F) (Oral) BP Readings from Last 3 Encounters: 02/23/19 118/70 01/10/19 (!) 136/93 01/01/19 101/62 Pulse Readings from Last 3 Encounters: 02/23/19 72 01/10/19 69 01/01/19 53 Vital signs: 07/15/2018: WT: 140 LB. BP: [...] tests: Lab Results Component Value Date WBC 8.35 01/01/2019 WBC 10.08 12/28/2018 RBC 3.43 (L) 01/01/2019 RBC 4.28 05/25/2018 HGB 11.2 (L) 01/01/2019 HCT 33.3 (L) 01/01/2019 HCT 38.9 12/28/2018 PLT 227 01/01/2019 PLT 262 12/28/2018 Lab Results Component Value Date NA 140 01/01/2019 K 3.9 01/01/2019 CL 105 01/01/2019 CO2 25 01/01/2019 ANIONGAP 10 01/01/2019 GLUF 66 05/25/2018 BUN 15 01/01/2019 EGFR 89 (L) 01/01/2019 Lab Results Component Value Date CHOL 152 12/28/2018 CHOL 182 03/05/2017 TRIG 115 12/28/2018 LDL 82 12/28/2018 GLUF 66 05/25/2018 Lab Results Component Value Date TSH 3.570 12/28/2018 No results found for: TOTEPI CARDIAC PROCEDURES/IMAGING Last angiogram : 03/13/2015: Jvtn-cy-ncrqyrpm left ventricular dysfunction with wall motion abnormality [...] No pulmonary hypertension, RVSP 25.55 mmHg. Mild CO. No pericardial effusion. IVC WNL, normal CVP. [...] No pulmonary hypertension, RVSP 22.04 mmHg. Mild CO. No p ericardial effusion. IVC WNL, CVP [...] of pulmonary hypertension, RVSP 24.79 mmHg. Mild CO. IVC normal CVP 5- 10 mmHg. 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 EKG/EVENT MONITOR EK03/03 2017: Normal sinus rhythm, T-wave inversion to anterior and lateral leads, simila r to EKG in March 2015. Low voltage QRS, poor R wave progression. Rate 69 bpm, CO 152 m s, QRS 86 ms, QTC 420 ms EK11/11/2018: (metoprolol):Sinus bradycardia, ventricular trigeminy, nonspecific T wave a bnormality to anterolateral lead. Rate 44 bpm, CO 160 ms, QRS 98 ms, QTC 397 ms, tracing pe rsonally reviewed by me, and compared to previous EKG, has trigeminal PVC, as well as fabrizio cardic heart rate. EK12/21/2018: Sinus rhythm with occasional PVCs. Rate 64 bpm, CO 158 ms, QRS 92 ms, QTC 410 [...] hematocrit 37.8, platelets 222 Labs: 12/04/2018: ( [facility] ER) INR 0.9. Lipase 27. CMP: Sodium 140, potassium 4.2, chloride 103, glucose 82, BUN 7, creatinine 0.66, albumin 4.6, total bili 0.5, alk phos 110, AST 12, ALT 21, GFR >68 CBC: WBC 8.73, RBC 4.11, hemoglobin 13.9, hematocrit 40.2, platelets 258 . lactic acid 1.1 Labs: 12/28/2018: Lipids:( atorvastatin 40 mg) Cholesterol 152, triglycerides 115, HDL 47, LDL 82 CMP: Sodium 140, potassium 4.1, chloride 104, glucose 86, BUN 12, creatinine 0.7, ca lcium 9.4, albumin 3.9, total bili 0.6, alk phos 113, AST 6, ALT 23, GFR >60. CBC: WBC 10.0 8, RBC 3.97, hemoglobin 13.7, hematocrit 38.9, platelets 262 thyroid: TSH 3.57 ASSESSMENT & PLAN: She was today for [...] in November. 1. Coronary artery disease involving [place] coronary artery of [place] heart, angina presenc e unspecified 2. Hx of CABG 3. History of PTCA 4. History of myocardial infarction 5. Regional wall motion abnormality of heart 6. Ascending aortic aneurysm (HCC) 7. Hypertension goal BP (blood pressure) < 130/80 8. Mixed hyperlipidemia 9. Chronic obstructive pulmonary disease, unspecified COPD type (HCC) 10. Smoker No orders of the defined types were placed in this encounter. The following portions of the patient's history [...] contain inadvertent rec ognition errors. Fredi HENNESSY [facility] Cardiology 02/23/2019 docume nted in this encounter Plan of Treatment +--------+---------+ + + + | Date | Type | Specialty | Care Team | Description | +--------+---------+ + + + | 07/18/ | Office | Cardiology | Erin Limon | | 2019 | Visit | | [address] | | | | | | [address] | | | | | | [place] [address] | | | | | | [phone] | | | | | | | | +--------+---------+ + + + + + +--------+ + + | Name | Type | Priori | Associated Diagnoses | Order Schedule | | | | ty | | | + + +--------+ + + | Ambulatory Referral | Outpatient | Routin | Coronary artery | Ordered: 02/23/2019 | | to Sleep Medicine | Referral | e | disease involving | | | | | | [place] coronary | | | | | | artery of [place] | | | | | | heart, [...] heart | | | | | | Hypertension goal | | | | | | BP (blood pressure) | | | | | | < 130/80 Chronic | | | | | | obstructive | | | | | | pulmonary disease, | | | | | | unspecified COPD | | | | | | type (HCC) Smoker | | | | | | Obstructive sleep | | | | | | apnea syndrome | | + + +--------+ + + documented as of this encounter Visit Diagnoses + + | Diagnosis | + + | Coronary artery disease involving [place] coronary artery of [place] heart, angina | | presence unspecified - [...] Tobacco use disorder | + + | Obstructive sleep apnea syndrome Obstructive sleep apnea (adult) (pediatric) | + + documented in this encounter
--- OUTSIDE RECORDS SUMMARY | ~2019-06-30 | XMS | Encounter Summary ---
Demographics + + + | Address | [address] | | | [place] [address] | + + + | Home Phone | | + + + | Preferred Language | Unknown | + + + | Marital Status | | + + + | Scientology Affiliation | 1041 | + + + [...] Team Providers + +------+ + | Care Air Antisubmarine Officer Name | Role | Phone | + +------+ + | Fabrice Amos DO | PCP | | + +------+ + Encounter Details +--------+ + + + + | Date | Type | Department | Care Team | Description | +--------+ + + + + | 11/09/ | Hospital | [facility] | Rashi Thompson MD | Calculus of bile | | 2019 - | Encounter | [facility] | [address] [place] | duct with | | | | ORTHOPEDICS [address] | [address] [place] | cholangitis and | | 11/11/ | | [address] [place] | [address] | obstruction, | | 2019 | | [address] | | unspecified | | | | [phone] | Freddie Walton MD | cholangitis acuity; | | | | | [address] | Calculus of bile | | | | | [place] | duct with | | | | | [address] | cholangitis and | | | | | | obstruction, | | | | | | unspecified | | | | | | cholangitis acuity; | | | | | | Chronic obstructive | | | | | | pulmonary disease, | | | | | | unspecified COPD | | | | | | type (HCC); Coronary | | | | | | artery disease, | | | | | | angina presence | | | | | | unspecified, | | | | | | unspecified vessel | | | | | | or lesion type, | | | | | | unspecified whether | | | | | | grand [place] tribes or | | | | | | transplanted heart; | | | | | | Gastroesophageal | | | | [...] has copy of instructions. Home with . lim, Freddie Oconnor MD - 11/11/2018 4:38 PM PDT [facility] PM FACULTY HOSPITALIST DISCHARGE SUMMARY PATIENT NAME: Sharon [...] FOLLOW UP: Meme Le NP New address: [address] [place] [address] On 11/24/2018 Follow up appointment with your GI provider at 10:50am. Fabrice Amos DO [facility] [address] [facility] [address] In 1 week ISSUES REQUIRING FOLLOW [...] this chart may have been created with Wochit voice recognition software. Occasi onal wrong-word or [...] neck or jaw pain Date Last Reviewed: 04/09/201719995141-4871 [employer]. [address] [place] [address]. All righ ts reserved. This information is [...] PDT GASTROENTEROLOGY INPATIENT DAILY PROGRESS NOTE Brandi Love, DO PGY1 Internal Medicine PATIENT INFORMATION Patient [...] biliary sphincterotomy and balloon extraction. A [place] 7 cm biliary stent was placed through [...] here or in the Assessment and Plan. [facility] attestation - Rashi Thompson MD - [...] CAD, hypothyroidism and GERD. Was admitted post proce dure for an ERCP for choledocolithiasis. Assessment and [...] Signs 11/08 699 - 11/09 0659 11/09 699 - 11/10 0659 11/10 699 - 11/10 [...] - Single Lumen 11/09/18 1125 Right Hand cqxc-ddg-kivonj catheter system 20 gauge;1 in length 1 [...] - 99 mg/dL Final Comment: Performed by [facility] [address] [place] [address] All pertinent labs and imaging have been reviewed. Please refer to the Assessment and Plan for details on management. I spent 36 minutes with the patient and on the patient's unit, with over 50% spent in couns eling and/or coordination of care. Please refer to the Assessment and Plan for details. Electronically signed by: Freddie Walton MD, [facility] 11/10/2018 15:45 Portions of this chart may have been created with Wochit voice recognition software. Occasi onal wrong-word or [...] biliary sphincterotomy and balloon extraction. A 10 [place] 7 cm biliary stent was placed through [...] and oriented x 3 Recent Labs Lab 11/10/1843511/09/182015 WBC 12.26* 19.63* HGB 12.1 13.2 HCT 35.6 37.5 PLT 246 271 Recent Labs Lab 11/10/1843511/09/182015 NA 137 141 K 4.0 3.8 CL 104 107 CO2 28 24 BUN 16 10 CREA 0.75 0.74 CALCIUM 8.8 9.4 Laboratory and Diagnostic Studies Reviewed: Available data and images were reviewed person ally. See reports. Significant results and findings are addressed here or in the Assessment and Plan. [facility] attestation - Rashi Thompson MD - [...] pain medications as needed Clear liquid diet Rashi Ortega MD - 11/09/2018 8:03 AM PDTFormatting of [...] TUNNEL RELEASE; Surgeon: Yung Gomez MD; Location: [facility] MAIN OR ; Service: Neurosurgery; Laterality: Right; SECTION CHOLECYSTECTOMY COLONOSCOPY 07/2017 CORONARY ARTERY BYPASS GRAFT [address] [place] HYSTERECTOMY LIVER SURGERY 01/2018 LIVER DRAIN FOR LIVER ABCESS OTHER SURGICAL HISTORY OTHER SURGICAL HISTORY CATARACT EXTRACTION OTHER SURGICAL HISTORY UNLISTED PROCEDURE ARTHROSCOPY - bilateral thumbs OTHER SURGICAL HISTORY 08/03/2017 COLONOSCOPY WITH EGD - Procedure: COLONOSCOPY W/ EGD; Surgeon: Rich Frank MD; L ocation: [facility]; Service: Gastroenterology; Laterality: N/A; [...] has been changed since signin Order Audit Ramsay levothyroxine (SYNTHROID) 50 mcg tablet (Taking) Take 50 mcg by mouth Daily. lisinopril (PRINIVIL, ZESTRIL) 10 mg tablet (Taking) Take 10 mg by mouth Daily. Number of times this order has been changed since signin Order Audit Ramsay metoprolol succinate (TOPROL-XL) 25 mg 24 hr [...] has been changed since signin Order Audit Ramsay pantoprazole (PROTONIX) 40 mg tablet (Taking) Take 1 tablet by mouth Daily. Number of times this order has been changed since signin Order Audit Ramsay traZODone (DESYREL) 150 MG tablet (Taking) Take 75-150 mg by mouth Daily. Number of times this order has been changed since signin Order Audit Ramsay triamcinolone (KENALOG) 0.025% ointment (Taking) Apply 0.025 Units topically as needed fo r Rash. Number of times this order has been changed since signin Order Audit Ramsay venlafaxine (EFFEXOR) 75 MG tablet (Taking) Take [...] held with the patien t or patient's patient care representative prior to the procedure. Benefits and alternatives [...] F | | | | | | [place] [address] | | | | | | [phone] | | | | | | | [...] | TRACEMASTER | | Duration:168 msP Horizontal [place]:35 degP Front [place]:17 degQ Onset:508 | | | msQRSD Interval:98 msQT Interval:464 msQTcB:397 msQTcF:418 msQRS | | | Horizontal [place]:-76 degQRS [place]:-38 degI-40 Horizontal [place]:-25 | | | degI-40 Front [place]:-36 degT-40 Horizontal [place]:-90 degT-40 Front | | | [place]:-42 degT Horizontal [place]:234 degT Wave [place]:162 degS-T Horizontal | | | [place]:115 degS-T Front [place]:128 degSeverity:- ABNORMAL ECG | | | -INTERP:SINUS BRADYCARDIAINTERP:VENTRICULAR TRIGEMINYINTERP:LEFT AXIS | | | DEVIATIONINTERP:BORDERLINE R WAVE PROGRESSION, ANTERIOR | | | LEADSINTERP:NONSPECIFIC T ABNORMALITIES, ANT-LAT LEADSElectronically | | | signed by: BIBI RAGLAND 11-11-2018 14:52:09 | | |QRS Horizontal [place]:-76 deg | | |QRS [place]:-38 deg | | |I-40 Horizontal [place]:-25 deg | | |I-40 Front [place]:-36 deg | | |T-40 Horizontal [place]:-90 deg | | |T-40 Front [place]:-42 deg | | |T Horizontal [place]:234 deg | | |T Wave [place]:162 deg | | |S-T Horizontal [place]:115 deg | | |S-T Front [place]:128 deg | | |Severity:- ABNORMAL ECG - [...] | + + + + + | [facility] | [address] | [place] [address] | [phone] | + + + + + CBC [...] ENCE | | | Immature | by [facility] [address], | K/uL | [facility]ED | | | Granulocyte | [place], [place] | | HEART | | | s |Performed by [facility] [address], [place], [place] | | MEDICA L | | | [...] + + | [facility] | [address] | [place], [place] | | | [facility] | | | | [...] | | LABORATORY | | | | [facility] [address], | | CERNER | | | | [place] [address] | | | | + + + + + + + + | Specimen | + + | Blood specimen | | (specimen) | + + + + + + + | Performing | Address | City/State/Zipcode | Phone Number | | Organization | | | | + + + + + | [facility] | [address] | [place] [address] | | | [facility] | | | | | LABORATORY [...] [facility] | | | | Performed by [facility] [address] | | SACRED | | | | [address], [place] | | HEART | | | | [address] | | MEDICAL | | | | [...] + + | [facility] | [address] | [place] [address] | | | [facility] | | | | | HAZEL [...] ENCE | | | Total | by [facility] [address], | | SACRED | | | | [place] [address] | | HEART | | | |Performed by [facility] [address], [place] [address] | | MEDICA L | | | [...] + + | [facility] | [address] | [place] [address] | | | [facility] | | | | | HAZEL [...] 12.26 (H) | 3.80 - 11.00 | [facility] [...] | | | Estimate | Performed by [facility] [address] | | SACRED | | | | [address] [place] | | HEART | | | | [address] | | MEDICAL | | | | [...] + + | [facility] | [address] | [place] [address] | | | [facility] | | | | | LABORATORY [...] | | LABORATORY | | | | [facility] [address], | | [place] | | | | [place] [address] | | | | + + + + + + + + | Specimen | + + | Blood specimen | | (specimen) | + + + + + + + | Performing | Address | City/State/Zipcode | Phone Number | | Organization | | | | + + + + + | [facility] | [address] | [place] [address] | | | [facility] | | | | | HAZEL [...] | 81 (L)Comment: eGFR<60 | >=90 | [facility] | | | GFR | consistent with impaired | mL/min/1.73m2 | [facility] | | | | kidney function.For | | HEART | | | | Americans, | | MEDICAL | | | | multiply the calculated | | CENTER | | | | GFR by 1.210Performed by | | LABORATORY | | | | [facility] [address], | | [place] | | | | [place] [address] | | | | + + + + + + + + | Specimen | + + | Blood specimen | | (specimen) | + + + + + + + | Performing | Address | City/State/Zipcode | Phone Number | | Organization | | | | + + + + + | [facility] | [address] | [place] [address] | | | [facility] | | | | [...] | | | Immature | Performed by [facility] [address] | K/uL | [facility]CRED | | | Granulocyte | [address] [place] | | HEART | | | s | [id number] | | MEDICAL | | | | [...] + | [facility] | [address] | [place] [address] | | | [facility] | | | | | LABORATORY [place] | | | | + + + + + [place] ERCP Biliary Only (11/09/2018 5:18 PM PDT) + + | Specimen | + + | | + + + + + | Impressions | Performed At | + + + | IMPRESSION: ERCP with fluoroscopic cholangiogram. | [facility] | | Signed by: Stanislav Fajardo, Mona Sign Date/Time: 11/10/2018 9:49 AM | | [...] removal and stent placement. | | | Auto Repair Shop Manager Dr. Thompson. Fluoro Time: 24 minute(s)41 seconds. | | | Number of images: 33 Air Kerma: 283.98 mGy | | + + + + + | Procedure Note | + + | Dex, Rad Results In - 11/10/2018 9:53 AM PDT [...] | sphincterotomy, stone removal and stent placement. Auto Repair Shop Manager | | Jay. | | | | [...] | [facility] | [place] | | [facility] | PROVATION | | Center[facility] | | | Patient Name: Sharon Way Procedure | | | Date: 11/09/2018 1:37 PMMRN: [id number] | | | of : 1945 | [...] | | | | | Findings: The home care and home health aides teacher film was normal. 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 Finally a 10 [place] 7cm plastic biliary stent was placed in [...] | sphincterotomy and balloon extraction. A 10 [place] 7 cm biliary | | | stent [...] | | 1:37 PMNumber of Addenda: 0 [facility] | | | [facility] | | |RASHI THOMPSON MD | | |11/09/2018 5:46:27 PM | | |This report has been signed electronically. | | | | | |Note Initiated On: 11/09/2018 1:37 PM | | |Number of Addenda: 0 | | | | | | [facility] | | + [...] | TRACEMASTER | | Duration:164 msP Horizontal [place]:30 degP Front [place]:17 degQ Onset:504 | | | msQRSD Interval:92 msQT Interval:448 msQTcB:429 msQTcF:435 msQRS | | | Horizontal [place]:-54 degQRS [place]:-34 degI-40 Horizontal [place]:-1 degI-40 | | | Front [place]:-33 degT-40 Horizontal [place]:-70 degT-40 Front [place]:-41 | | | degT Horizontal [place]:254 degT Wave [place]:-20 degS-T Horizontal [place]:129 | | | degS-T Front [place]:140 degSeverity:- ABNORMAL ECG -INTERP:SINUS | | | BRADYCARDIAINTERP:VENTRICULAR TRIGEMINYINTERP:LEFT AXIS | | | DEVIATIONINTERP:NONSPECIFIC T ABNORMALITIES, ANTERIOR | | | LEADSElectronically signed by: BIBI RAGLAND 11-09-2018 12:40:55 | | |QTcF:435 ms | | |QRS Horizontal [place]:-54 deg | | |QRS [place]:-34 deg | | |I-40 Horizontal [place]:-1 deg | | |I-40 Front [place]:-33 deg | | |T-40 Horizontal [place]:-70 deg | | |T-40 Front [place]:-41 deg | | |T Horizontal [place]:254 deg | | |T Wave [place]:-20 deg | | |S-T Horizontal [place]:129 deg | | |S-T Front [place]:140 deg | | |Severity:- ABNORMAL ECG - [...] + + + + + | [facility] | [address] [place] | [place] [address] | [phone] | + + + + + POC Glucose (11/09/2018 11:31 AM PDT) + + + + --+ + | Component | Value | Ref Range | Performed | Pathologist | | | | | At | Signature | + + + + --+ + | Glucose, | 89Comment: Performed by | 65 - 99 mg/dL | [facility] | | | POC | [facility] [address], | | SACRED | | | | [place] [address] | | HEART | | | |Performed by [facility] [address], [place] [address] | | MEDICAL | | | | [...] SACRED | [address] | [place] [address] | | | [facility] | | | | | [place] | | | | + + + + + documented in this encounter Visit Diagnoses + + | Diagnosis | + + | Calculus of bile duct with cholangitis and obstruction, unspecified cholangitis acuity | + + | Chronic obstructive pulmonary disease, unspecified COPD type (HCC) | + + | Coronary artery disease, angina presence unspecified, unspecified vessel or lesion | | type, unspecified whether [place] tribes or transplanted heart | + + | Gastroesophageal reflux disease, [...] | | | | | | longer, nynrqx-iqu-ydcvf use of | | | | | [...] | | | | | Pain, Starting Thu11/09/18 at | | | | | | [...] | mL/hr | | | CONTINUOUS, Starting Tu11/09/18 | | AM PDT | | | [...] mLs | | | | CONTINUOUS, Starting Tu11/09/18 | | PM PDT | | | [...] | | | | | | | [facility] 11/11/18 at 0730, Give before | | [...] | | | | PRN, Nausea, Starting 11/09/18 | | PM PDT | [...] | | | | on 11/09/18 at 1930, Do not | | [...] | | | | | Equivalent to VS#3 capsule. DO | | | | | [...]
--- OUTSIDE RECORDS SUMMARY | ~2019-06-30 | XMS | Encounter Summary ---
Demographics + + + | Address | [address] | | | [place] [address] | + + + | Home Phone | | + + + | Preferred Language | Unknown | + + + | Marital Status | | + + + | Restorationist Affiliation | 1041 | + + + | Race | Unknown | + + + | Ethnic Group | Unknown | + + + Author + + + | Author | [facility] | | | and [place] | + + + | Organization | [facility] | | [...] Team Providers + +------+ + | Care Java Developer Name | Role | Phone | + +------+ + | Fabrice Hansen DO | PCP | | + +------+ + Reason for Visit + + + | Reason | Comments | + + + | Results, Imaging | CT scan | + + + Encounter Details +--------+ + + + + | Date | Type | Department | Care Team | Description | +--------+ + + + + | 10/22/ | Telephone | [facility] | Fabrice Hansen | Results, Imaging (CT | | 2019 | | [facility] | DO Duarte [address] | scan) | | | | PRIMARY CARE [address] | [facility] [address] | | | | | [address] | [address] [place], [place] | | | | | [place], [place] | [address] | | | | | [address] | | | | | | [phone] | | | +--------+ + + + [...] | | | | | [place] [address] | | | | | | [phone] | | | | | | | | +--------+---------+ + + + documented as of this encounter Visit Diagnoses Not on filedocumented in this encounter"
--- OUTSIDE RECORDS SUMMARY | ~2019-06-30 | XMS | Encounter Summary ---
Demographics + + + | Address | [address] | | | [place] [address] | + + + | Home Phone | | + + + | Preferred Language | Unknown | + + + | Marital Status | | + + + | Congregation Affiliation | 1041 | + + + [...] Team Providers + +------+ + | Care Driller Multiple Spindle Name | Role | Phone | + +------+ + | Fabrice Hansen DO | PCP | | + +------+ + Reason for Visit +--------+ + | Reason | Comments | +--------+ + | Triage | | +--------+ + Encounter Details +--------+ + + + + | Date | Type | Department | Care Team | Description | +--------+ + + + + | 11/15/ | Telephone | [facility] | Kasia Levin RN | Triage | | 2019 | | [facility] | | | | | | PRIMARY [address] | | | | | | [address] | | | | | | [place], [place] | | | | | | [address] | | | | | | [phone] | | | +--------+ + + + [...] [place] | | | | | | [place] [address] | | | | | | [phone] | | | | | | | | +--------+---------+ + + + documented as of this encounter Visit Diagnoses Not on filedocumented in this encounter"
--- OUTSIDE RECORDS SUMMARY | ~2019-06-30 | XMS | Encounter Summary ---
Demographics + + + | Address | [address] | | | [place] [address] | + + + | Home Phone | | + + + | Preferred Language | Unknown | + + + | Marital Status | | + + + | Hindu Affiliation | 1041 | + + + | Race | Unknown | + + + | Ethnic Group | Unknown | + + + Author + + + | Author | [facility] | | | and [place] | + + + | Organization | [facility] | | | and [...] Team Providers + +------+ + | Care Blueprint Maker Name | Role | Phone | [...] Authorizatio | | Radiology | Diagnoses | [place], | [facility] | | n not | | | Abnormal | Fabrice | [address] | | Required | | | liver | DO Lucius | [address] | | | | | function | [address] | [address] | | | | | test | [address] | [place], [place] | | | | | Procedures | [address] | [address] | | | | | CT Abdomen w | [place], [place] | Phone: | | | | | wo Contrast | [address] | [phone] | | | | | | Phone: | Fax: | | | | | | [phone] | [phone] | | | | | | Fax: | | | | | | | [phone] | | + +--------+ + + + + Reason for Visit + + + | Reason | Comments | + + + | Lab Results | | + + + Encounter Details +--------+ + + + + | Date | Type | Department | Care Team | Description | +--------+ + + + + | 10/07/ | Telephone | [facility] | Fabrice Hansen | Lab Results | | 2019 | | [facility] | DO [address] | | | | | PR[address] | [address] | | | | | [address] | [address] [place], [place] | | | | | [place], [place] | [address] | | | | | [address] | | | | | | [phone] | | | +--------+ + + + [...] [place] | | | | | | [place] [address] | | | | | | [phone] | | | | | | | | +--------+---------+ + + + + +---------+--------+ + + | Name | Type | Priori | Associated Diagnoses | Order Schedule | | | | ty | | | + +---------+--------+ + + | CT Abdomen w wo | Imaging | Routin | Abnormal liver | Expected: | | Contrast | | e | function test | 10/08/2018, Expires: | | | | | | 10/08/2019 | + +---------+--------+ + + documented as of this encounter Visit Diagnoses + + | Diagnosis | + + | Abnormal liver function test - Primary Other abnormal blood chemistry | + + documented in this encounter"
--- OUTSIDE RECORDS SUMMARY | ~2019-06-30 | XMS | Encounter Summary ---
Demographics + + + | Address | [address] | | | [place] [address] | + + + | Home Phone | | + + + | Preferred Language | Unknown | + + + | Marital Status | | + + + | Sabianism Affiliation | 1041 | + + + | Race | Unknown | + + + | Ethnic Group | Unknown | + + + Author + + + | Author | [facility] | | | and [place] | + + + | Organization | [facility] | | | [...] Team Providers + +------+ + | Care Sample Sawyer Name | Role | Phone | + [...] Description | +--------+--------+ + + + | 12/28/ | Refill | [facility] | Marcelino Bravo, | Medication Refill | | 2019 | | [facility] | MD [address] | | | | | PRIMARY CARE [address] | [facility] [address] | | | | | [address] | [place] [address] | | | | | [place], [place] | [phone] | | | | | [address] | | | | | | [phone] | | | +--------+--------+ + + + [...] | | | | | [place] [address] | | | | | | [phone] | | | | | | | | +--------+---------+ + + + documented as of this encounter Visit Diagnoses Not on filedocumented in this encounter"
--- OUTSIDE RECORDS SUMMARY | ~2019-06-30 | XMS | Encounter Summary ---
Demographics + + + | Address | [address] | | | [place] [address] | + + + | Home Phone | | + + + | Preferred Language | Unknown | + + + | Marital Status | | + + + | Anabaptism Affiliation | 1041 | + + + | Race | Unknown | + + + | Ethnic Group | Unknown | + + + Author + + + | Author | [facility] | | | and Luisana | + + + | Organization | [facility] | | | [...] Team Providers + +------+ + | Care Public Relations Intern Name | Role | Phone | + [...] | [address] | | | | | OR RESEC | [place], | [place], [place] | | | | | LIVER,TOTAL | [place] [address] | [address] Phone: | | | | | LT LOBECTOMY | Phone: | [phone] | | | | | LEFT | [phone] | Fax: | | | | | HEPATECTOMY | Fax: | [phone] | | | | | | [phone] | | +--------+ + + + + [...] | | | | | stones | [place], | [place], [place] | | | | | Procedures | [place] [address] | [address] Phone: | | | | | DAIRY STORE MANAGER | Phone: | [phone] | | | | | | [phone] | Fax: | | | | | | Fax: | [phone] | | | | | | [phone] | | + + + + + + + Encounter Details +--------+---------+ + + + | Date | Type | Department | Care Team | Description | +--------+---------+ + + + | 01/10/ | Office | [facility] | Tom Limon MD | Hepatic lithiasis | | 2019 | Visit | and Pancreas GI | [address] [place] | (Primary Dx); | | | | [facility] [address] | [address] [place], [place] | 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 [facility] [phone] documented in this encounter Progress Notes Tom Limon MD - 01/10/2019 2:00 PM PST [facility] Note Referring Provider: Miguel Cadena MD [...] MRI with contrast in 3 months at [facility] Thank you for allowing me to participate in the care of your patient. If you have any ques tions or concerns regarding her evaluation, please feel free to contact me at [phone]. Tom Limon MD, FACS ----- History of [...] percutaneous drai n and IV antibiotics at [facility] in [place]. Past Medical History: Past Medical History: Diagnosis [...] disease) Heart attack (HCC) Dr Gutierrez at [facility] Heart disease High cholesterol HTN (hypertension) 10/18/2012 Intrahepatic bile duct dilation Irritable bowel syndrome Joint pain Liver abscess 03/05/2018 Neuromuscular disorder ([facility]) PONV (postoperative nausea and vomiting) Range of motion deficit left hip Use of cane as ambulatory aid 12/30/2018 Visual disturbance glasses Wears partial dentures upper and lower Past Surgical History Past Surgical History: Procedure Laterality Date APPENDECTOMY CARDIAC CATHERIZATION CARDIOVASCULAR SURGERY TRIPLE BYPASS CARPAL TUNNEL RELEASE Right 10/18/2012 Procedure: CARPAL TUNNEL RELEASE; Surgeon: Yung Gomez MD; Location: [facility] MAIN OR ; Service: Neurosurgery; Laterality: Right; SECTION CHOLECYSTECTOMY COLONOSCOPY 07/2017 CORONARY ARTERY BYPASS GRAFT [address] [place] ERCP N/A 11/09/2018 Procedure: ERCP, SPYGLASS; Surgeon: Bacilio Thompson MD; Location: [facility] MEDICAL PROCEDURE UN IT ERCP N/A 12/31/2018 Procedure: ENDOSCOPIC RETROGRADE CHOLANGIOPANREATOG; Surgeon: Miguel Cadena MD; Location : [facility] MEDICAL PROCEDURE UNIT LIVER SURGERY 01/2018 LIVER DRAIN FOR LIVER ABCESS OTHER SURGICAL HISTORY OTHER SURGICAL HISTORY CATARACT EXTRACTION OTHER SURGICAL HISTORY UNLISTED PROCEDURE ARTHROSCOPY - bilateral thumbs OTHER SURGICAL HISTORY 08/03/2017 COLONOSCOPY WITH EGD - Procedure: COLONOSCOPY W/ EGD; Surgeon: Rich Frank MD; L ocation: [facility] ENDOSCOPY; Service: Gastroenterology; Laterality: N/A; GRIS [...] file Gets together: Not on file Attends cheondoism service: Not on file Active member of [...] E. Batayola, DO Juan C Mejia MD, [facility] [address] [place] [address] documented in this enco unter Plan of Treatment +--------+---------+ + + + | Date | Type | Specialty | Care Team | Description | +--------+---------+ + + + | 07/18/ | Office | Cardiology | Erin Limon | | | 2019 | Visit | | CARLOS [address] | | | | | | [address] | | | | | | [place] [address] | | | | | | [phone] | | | | | | | [...] Chrissy | | | | | | anthony;[place] [address] | | | | | | | | | | + + + + + + + + | Specimen | + + | Blood | + + + + + + + | Performing | Address | City/State/Zipcode | Phone Number | | Organization | | | | + + + + + | REFERENCE LAB | [address] [place] [address] | [place], [place] | [phone] | | [facility] | Bl[address] | [address] | | | LABORATORY | | | | + + + + + | REFERENCE LAB | [address] [place] [address] | [place], [place] | | | [facility] | Blvd. | [address] | | | LABORATORY | | | [...]
--- OUTSIDE RECORDS SUMMARY | ~2019-06-30 | XMS | Encounter Summary ---
Demographics + + + | Address | [address] | | | [place] [address] | + + + | Home Phone | | + + + | Preferred Language | Unknown | + + + | Marital Status | | + + + | Scientologist Affiliation | 1041 | + + + | Race | Unknown | + + + | Ethnic Group | Unknown | + + + Author + + + | Author | [facility] | | | and Luisana | + + + | Organization | [facility] | | [...] Team Providers + +------+ + | Care Chemical Operations And Training Name | Role | Phone | + [...] + + | 12/07/ | Telephone | [facility] | Meme Le | Other (requesting to | | 2018 | | GASTROENTEROLOGY | A, AUTOMOBILE REPOSSESSOR [address] | speak to provider) | | | | [address] | [place] [address] | | | | | [place], [place] | [phone] | | | | | [address] | | | | | | [phone] | | | +--------+ + + + [...] | | | | | [place] [address] | | | | | | [phone] | | | | | | | | +--------+---------+ + + + documented as of this encounter Visit Diagnoses Not on filedocumented in this encounter"
--- OUTSIDE RECORDS SUMMARY | ~2019-06-30 | XMS | Encounter Summary ---
Demographics + + + | Address | [address] | | | [place] [address] | + + + | Home Phone [...] Team Providers + +------+ + | Care Roving Weight Gauger Name | Role | Phone | + [...] [address] | | | | | [place], [place] | [address] [facility] | | | | | [address] | [address] [place], [place] | | | | | [phone] | [address] | | | | | | | [...] [address] | | | | | | [place] [address] | | | | | | [phone] | | | | | | | [...]
--- OUTSIDE RECORDS SUMMARY | ~2019-06-30 | XMS | Encounter Summary ---
Demographics + + + | Address | [address] | | | [place] [address] | + + + | Home Phone | | + + + | Preferred Language | Unknown | + + + | Marital Status | | + + + | Yazidism Affiliation | 1041 | + + + | Race | Unknown | + + + | Ethnic Group | Unknown | + + + Author + + + | Author | [facility] | | | and Luisana | + + + | Organization | [facility] | | [...] Team Providers + +------+ + | Care Disciplinary Hearing Officer Name | Role | Phone | + +------+ + | Fabrice Hansen DO | PCP | | + +------+ + Reason for Referral Diagnostic/Screening (Routine) +--------+--------+ + + + + | Status | Reason | Specialty | Diagnoses / | Referred By | Referred To | | | | | Procedures | Contact | Contact | +--------+--------+ + + + + | Closed | | Radiology | Diagnoses | Cook, | Km Mri | | | | | Gall | DANIELLE Crain | [address] | | | | | stones, | [address] | | | | | common bile | [address], [place] | [place], [place] | | | | | duct | [address] | [address] | | | | | Choledochodu | [place], [place] | Phone: | | | | | odenal | [address] | [phone] | | | | | fistula | Phone: | Fax: | | | | | Procedures | [phone] | [phone] | | | | | MRI Abdomen | Fax: | | | | | | w wo | [phone] | | | | | | Contrast | | | | | | | MRCP | | | +--------+--------+ + + + + Encounter Details +--------+ + + + + | Date | Type | Department | Care Team | Description | +--------+ + + + + | 11/12/ | Orders Only | [facility] | Bacilio Thompson MD | Gall stones, common | | 2019 | | and Pancreas GI | [address] [place] | bile duct (Primary | | | | [address] | [address] [place], [place] | Dx); | | | | [address] | [address] | 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 | | | | [address] | | | | | | [phone] | | | +--------+ + + + [...] [address] | | | | | | [place] [address] | | | | | | [phone] | | | | | | | | +--------+---------+ + + + documented as of this encounter Results CBC with Differential (12/28/2018 9:33 AM PST) + + + + + + | Component | Value | Ref Range | Performed | Pathologist | | | | | At | Signature | + + + + + + | WBC | 10.08 | 3.80 - 11.00 | REFERENCE | | | | | K/uL | LAB | | | | | | [facility] | | | | | | LABORATORY | | + + + + + + | RBC | 3.97 | 3.70 - 5.10 | REFERENCE | | | | | M/uL | LAB | | | | | | [facility] | | | | | | LABORATORY | | + + + + + + | Hemoglobin | 13.7 | 11.3 - 15.5 | REFERENCE | | | | | g/dL | LAB | | | | | | [facility] | | | | | | LABORATORY | | + + + + + + | Hematocrit | 38.9 | 34.0 - 46.0 % | REFERENCE | | | | | | LAB | | | | | | [facility] | | | | | | LABORATORY | | + + + + + + | MCV | 97.9 | 80.0 - 100.0 fl | REFERENCE | | | | | | LAB | | | | | | [facility] | | | | | | LABORATORY | | + + + + + + | MCH | 34.5 (H) | 27.0 - 34.0 pg | REFERENCE | | | | | | LAB | | | | | | [facility] | | | | | | LABORATORY | | + + + + + + | MCHC | 35.2 | 32.0 - 35.5 | REFERENCE | | | | | g/dL | LAB | | | | | | [facility] | | | | | | LABORATORY | | + + + + + + | RDW-SD | 45.5 | 37 - 53 fl | REFERENCE | | | | | | LAB | | | | | | [facility] | | | | | | LABORATORY | | + + + + + + | Platelet | 262 | 150 - 400 K/uL | REFERENCE | | | Count | | | LAB | | | | | | [facility] | | | | | | LABORATORY | | + + + + + + | MPV | 9.8 | fl | REFERENCE | | | | | | LAB | | | | | | [facility] | | | | | | LABORATORY | | + + + + + + | Diff Type | AUTOMATED | | REFERENCE | | | | | | LAB | | | | | | [facility] | | | | | | LABORATORY | | + + + + + + | % | 69.19 | % | REFERENCE | | | Neutrophils | | | LAB | | | | | | [facility] | | | | | | LABORATORY | | + + + + + + | % | 22.51 | % | REFERENCE | | | Lymphocytes | | | LAB | | | | | | [facility] | | | | | | LABORATORY | | + + + + + + | Monocyte % | 5.63 | % | REFERENCE | | | | | | LAB | | | | | | [facility] | | | | | | LABORATORY | | + + + + + + | Eosinophils | 1.64 | % | REFERENCE | | | % | | | LAB | | | | | | [facility] | | | | | | LABORATORY | | + + + + + + | Basophils % | 1.03 | % | REFERENCE | | | | | | LAB | | | | | | [facility] | | | | | | LABORATORY | | + + + + + + | Neutrophils | 6.98 | 1.90 - 7.40 | REFERENCE | | | , Absolute | | K/uL | LAB | | | | | | [facility] | | | | | | LABORATORY | | + + + + + + | Absolute | 2.27 | 1.00 - 3.90 | REFERENCE | | | Lymphocytes | | K/uL | LAB | | | | | | [facility] | | | | | | LABORATORY | | + + + + + + | Absolute | 0.57 | 0.00 - 0.80 | REFERENCE | | | Monocytes | | K/uL | LAB | | | | | | [facility] | | | | | | LABORATORY | | + + + + + + | Eosinophils | 0.17 | 0.00 - 0.50 | REFERENCE | | | , Absolute | | K/uL | LAB | | | | | | [facility] | | | | | | LABORATORY | | + + + + + + | Basophils, | 0.10Comment: Testing | 0.00 - 0.10 | REFERENCE | | | Absolute | performed at [facility];[address] | K/uL | LAB | | | | [address] | | [facility] | | | | [address];[place] [address] | | LABORATORY | | + + + + + + + + | Specimen | + + | Blood | + + + + + + + | Performing | Address | City/State/Zipcode | Phone Number | | Organization | | | | + + + + + | REFERENCE LAB | [address] | [place] | [phone] | | [facility] | [address] | [address] | | | LABORATORY | | | | + + + + + | REFERENCE LAB | [address] | [place] | | | [facility] | Blvd[address] | [address] | | | LABORATORY | | | | + + + + + MRI Abdomen w wo Contrast MRCP (12/27/2018 12:16 PM PST) + + | Specimen | + + | | + + + + + | Impressions | Performed At | + + + | 1. Essentially unchanged moderate extrahepatic and intrahepatic | [facility] | | biliary ductal dilatation. Interval slight decrease in pneumobilia. | | | Choledocholithiasis seen within the CBD, and the left intrahepatic | | | ducts. There appears to be a central stricture at the confluence of | | | the intrahepatic ducts. 2. Gallbladder appears to be surgically | | | absent. 3. No pancreatic ductal dilatation seen. Suspected pancreas | | | divisum. 4. Unchanged pancreatic parenchymal T2 hyperintensities, | | | largest measuring 1.6 cm. Please refer to the previous MRI report | | | for follow-up recommendations. Signed by: Shanell Lopez Amit | | | Sign Date/Time: 12/28/2018 8:46 AM | | + + + + + + | Narrative | Performed At | + + + | MR ABDOMEN WITHOUT AND WITH IV CONTRAST CLINICAL INFORMATION: | [facility] | | choledochoduodenal fistula, cbd stones s/p ERCP COMPARISON: MRI | | | ABDOMEN WO CONTRAST MRCP (12/04/2018) PROCEDURE: MRI of the | | | abdomen performed in axial and coronal planes with and without IV | | | contrast, including dedicated MRCP sequences. 3D was not performed | | | on an independent workstation. Contrast: 6ml GADAVIST was | | | administered intravenously. FINDINGS: MRCP: Moderate | | | extrahepatic and intrahepatic biliary ductal dilatation seen, | | | essentially unchanged. CBD measures up to 13 mm in maximum diameter. | | | There appears to be a central stricture at the confluence of the | | | intrahepatic bile ducts. Within the left central bile ducts, there | | | appear to be multiple filling defects, similar to the previous | | | examination, likely representing calculi. Within the dependent | | | portions of the CBD on series 13, image 5 and image 4, there are few | | | filling defect seen measuring up to 5 mm in size, also likely | | | representing calculi. The previously noted pneumobilia appears to be | | | slightly decreased. The gallbladder is not seen, appears to be | | | surgically absent. No pancreatic ductal dilatation seen. | | | Suspected pancreas divisum. Scattered within the pancreatic | | | parenchyma, there are few T2 hyperintensities seen, largest in the | | | pancreatic head on series 12, image 9 measuring 1.6 cm, unchanged. | | | MR Abdomen: Lung Bases: No consolidation or pleural effusion seen. | | | Liver: Please see above for description of the bile ducts. | | | Otherwise liver appears unremarkable. Pancreas, Adrenal glands and | | | Spleen: Please see above for description of the pancreas. | | | Otherwise the pancreas appears unremarkable. The spleen, and | | | adrenal glands appear unremarkable. Kidneys: Few small renal T2 | | | hyperintensities, probably cysts. No hydronephrosis seen. | | | Peritoneum and Retroperitoneum: No ascites seen. No dilated bowel | | | loops seen Vessels: Aorta does not appear aneurysmal. Celiac trunk, | | | SMA and proximal NARINDER appear patent. Lymph Nodes: No enlarged lymph | | | nodes seen. Body Wall: No significant abnormality appreciated. | | | Bones: No acute or destructive osseous process seen. | | + + + + + | Procedure Note | + + | Dex, Rad Results In - 12/28/2018 8:49 AM PST | | MR ABDOMEN WITHOUT AND WITH IV CONTRAST | | | | CLINICAL INFORMATION: | | choledochoduodenal fistula, cbd stones s/p ERCP | | | | COMPARISON: | | MRI ABDOMEN WO CONTRAST MRCP (12/04/2018) | | | | PROCEDURE: | | MRI of the abdomen performed in axial and coronal planes with and | | without IV contrast, including dedicated MRCP sequences. | | | | 3D was not performed on an independent workstation. | | | | Contrast: 6ml GADAVIST was administered intravenously. | | | | FINDINGS: | | MRCP: | | Moderate extrahepatic and intrahepatic biliary ductal dilatation seen, | | essentially unchanged. CBD measures up to 13 mm in maximum diameter. | | There appears to be a central stricture at the confluence of the | | intrahepatic bile ducts. Within the left central bile ducts, there | | appear to be multiple filling defects, similar to the previous | | examination, likely representing calculi. Within the dependent | | portions of the CBD on series 13, image 5 and image 4, there are few | | filling defect seen measuring up to 5 mm in size, also likely | | representing calculi. The previously noted pneumobilia appears to be | | slightly decreased. | | | | The gallbladder is not seen, appears to be surgically absent. No | | pancreatic ductal dilatation seen. Suspected pancreas divisum. | | Scattered within the pancreatic parenchyma, there are few T2 | | hyperintensities seen, largest in the pancreatic head on series 12, | | image 9 measuring 1.6 cm, unchanged. | | | | MR Abdomen: | | Lung Bases: No consolidation or pleural effusion seen. | | Liver: Please see above for description of the bile ducts. Otherwise | | liver appears unremarkable. | | Pancreas, Adrenal glands and Spleen: Please see above for description | | of the pancreas. Otherwise the pancreas appears unremarkable. The | | spleen, and adrenal glands appear unremarkable. | | Kidneys: Few small renal T2 hyperintensities, probably cysts. No | | hydronephrosis seen. | | Peritoneum and Retroperitoneum: No ascites seen. No dilated bowel | | loops seen | | Vessels: Aorta does not appear aneurysmal. Celiac trunk, SMA and | | proximal NARINDER appear patent. | | Lymph Nodes: No enlarged lymph nodes seen. | | Body Wall: No significant abnormality appreciated. | | Bones: No acute or destructive osseous process seen. | | | | IMPRESSION: | | 1. Essentially unchanged moderate extrahepatic and intrahepatic biliary | | ductal dilatation. Interval slight decrease in pneumobilia. | | Choledocholithiasis seen within the CBD, and the left intrahepatic | | ducts. There appears to be a central stricture at the confluence of | | the intrahepatic ducts. | | 2. Gallbladder appears to be surgically absent. | | 3. No pancreatic ductal dilatation seen. Suspected pancreas divisum. | | 4. Unchanged pancreatic parenchymal T2 hyperintensities, largest | | measuring 1.6 cm. Please refer to the previous MRI report for | | follow-up recommendations. | | | | | | | | Signed by: Shanell Lopez, [place] | | Sign Date/Time: 12/28/2018 8:46 AM | + + + +---------+ + + | Performing | Address | City/State[facility] | Phone Number | | Organization | | | | + +---------+ + + | [facility] | | | | + +---------+ + + documented in this encounter Visit Diagnoses + + | Diagnosis | + + | Gall stones, common bile duct - Primary Calculus of bile duct without mention of | | cholecystitis or obstruction | + + | Choledochoduodenal fistula Fistula of bile duct | + + documented in this encounter"
--- OUTSIDE RECORDS SUMMARY | ~2019-06-30 | XMS | Encounter Summary ---
Demographics + + + | Address | [address] | | | [place] [address] | + + + | Home Phone | | + + + | Preferred Language | Unknown | + + + | Marital Status | | + + + | Church Affiliation | 1041 | + + + [...] Team Providers + +------+ + | Care Certified Drug Counselor Name | Role | Phone | + +------+ + | Fabrice Hansen DO | PCP | | + +------+ + Encounter Details +--------+ + + + + | Date | Type | Department | Care Team | Description | +--------+ + + + + | 12/23/ | Orders Only | [facility] | Fabrice Hansen | | | 2017 | | [address] | DO [place] [address] | | | | | [place], [place] | [address] [facility] | | | | | [address] | [address] [place], [place] | | | | | [phone] | [address] | | | | | | | [...] [address] | | | | | | [place] [address] | | | | | | [phone] | | | | | | | | +--------+---------+ + + + documented as of this encounter Procedures + +--------+ + + + | Procedure Name | Priori | Date/Time | Associated Diagnosis | Comments | | | ty | | | | + +--------+ + + + | ALLERGENS, PANEL, | Routin | 12/23/2017 | | Results for this | | ADULT FOOD PROFILE | e | 11:39 AM | | procedure are in the | | | | PST | | results section. | + +--------+ + + + documented in this encounter Results Allergens, Adult Food Profile 22 (12/23/2017 11:39 AM PST) + + + + + + | Component | Value | Ref Range | Performed | Pathologist | | | | | At | Signature | + + + + + + | Class | (See Below)Comment: | | EXTERNAL | | | Description | Levels of Specific IgE | | LAB | | | | Class | | | | | | Description of Class | | | | | | | | | | | | | | | | | | --- ----- | | | | | | | | | | | | | | | | | | < 0.10 0 | | | | | | Negative | | | | | | 0.10 - | | | | | | 0.31 0/I | | | | | | Equivocal/Low | | | | | | 0.32 - | | | | | | 0.55 I | | | | | | Low | | | | | | 0.56 - 1.40 | | | | | | II | | | | | | Moderate | | | | | | 1.41 - 3.90 | | | | | | III High | | | | | | 3.91 - | | | | | | 19.00 IV | | | | | | Very High | | | | | | 19.01 - 100.00 | | | | | | V | | | | | | Very High | | | | | | >100.00 | | | | | | | | | | | | Very High | | | | + + + + + + | ALMONDS | <0.10Comment: Reference | kU/L | EXTERNAL | | | | range: Class 0 | | LAB | | + + + + + + | CASHEW IGE | <0.10Comment: Reference | kU/L | EXTERNAL | | | | range: Class 0 | | LAB | | + + + + + + | HAZELNUT | <0.10Comment: Reference | kU/L | EXTERNAL | | | | range: Class 0 | | LAB | | + + + + + + | Allergen | <0.10Comment: Reference | kU/L | EXTERNAL | | | [place] IgE | range: Class 0 | | LAB | | + + + + + + | Scallop IgE | <0.10Comment: Reference | kU/L | EXTERNAL | | | | range: Class 0 | | LAB | | + + + + + + | Allergen | <0.10Comment: Reference | kU/L | EXTERNAL | | | Sesame Seed | range: Class 0 | | LAB | | | IgE | | | | | + + + + + + | Codfish IgE | <0.10Comment: Reference | kU/L | EXTERNAL | | | | range: Class 0 | | LAB | | + + + + + + | Cow's Milk | <0.10Comment: Reference | kU/L | EXTERNAL | | | IgE | range: Class 0 | | LAB | | + + + + + + | Egg White | <0.10Comment: Reference | kU/L | EXTERNAL | | | IgE | range: Class 0 | | LAB | | + + + + + + | Peanut IgE | <0.10Comment: Reference | kU/L | EXTERNAL | | | | range: Class 0 | | LAB | | + + + + + + | Soybean IgE | <0.10Comment: Reference | kU/L | EXTERNAL | | | | range: Class 0 | | LAB | | + + + + + + | Shrimp IgE | <0.10Comment: Reference | kU/L | EXTERNAL | | | | range: Class 0 | | LAB | | + + + + + + | Tuna IgE | <0.10Comment: Reference | kU/L | EXTERNAL | | | | range: Class 0 | | LAB | | + + + + + + | Alviso Tree | <0.10Comment: Reference | kU/L | EXTERNAL | | | IgE | range: Class 0 | | LAB | | + + + + + + | Wheat IgE | <0.10Comment: Reference | kU/L | EXTERNAL | | | | range: Class 0 | | LAB | | + + [...]
--- OUTSIDE RECORDS SUMMARY | ~2019-06-30 | XMS | Encounter Summary ---
Demographics + + + | Address | [address] | | | [place] [address] | + + + | Home Phone | | + + + | Preferred Language | Unknown | + + + | Marital Status | | + + + | Roman Catholic Affiliation | 1041 | + + + [...] Team Providers + +------+ + | Care Apartment Groundskeeper Name | Role | Phone | + +------+ + | Fabrice Hansen DO | PCP | | + +------+ + Encounter Details +--------+ + + + + | Date | Type | Department | Care Team | Description | +--------+ + + + + | 03/05/ | Orders Only | [facility] | Erin Limon | | | 2017 | | [address] | [address] | | | | | [place], [place] | [place] | | | | | [address] | [place] [address] | | | | | [phone] | [phone] | | | | | | | [...] M[place] | | | | | | [place] [address] | | | | | | [phone] | | | | | | | | +--------+---------+ + + + documented as of this encounter Procedures + +--------+ + + + | Procedure Name | Priori | Date/Time | Associated Diagnosis | Comments | | | ty | | | | + +--------+ + + + | EXTERNAL LAB: CBC | Routin | 03/05/2017 | | Results for this | | | e | 10:58 AM | | procedure are in the | | | | PST | | results section. | + +--------+ + + + | THYROID PANEL WITH | Routin | 03/05/2017 | | Results for this | | TSH | e | 10:58 AM | | procedure are in the | | | | PST | | results section. | + +--------+ + + + | LIPID PANEL | Routin | 03/05/2017 | | Results for this | | | e | 10:58 AM | | procedure are in the | | | | PST | | results section. | + +--------+ + + + | COMPREHENSIVE | Routin | 03/05/2017 | | Results for this | | METABOLIC PANEL | e | 10:58 AM | | procedure are in the | | | | PST | | results section. | + +--------+ + + + documented in this encounter Results Thyroid Panel with TSH (03/05/2017 10:58 AM PST) + + + + + + | Component | Value | Ref Range | Performed | Pathologist | | | | | At | Signature | + + + + + + | T3 Uptake | 26.4 (L) | 30.0 - 39.0 % | EXTERNAL | | | | | | LAB | | + + + + + + | T4, Total | 5.6 | 4.7 - 11.3 | EXTERNAL | | | | | ug/dL | LAB | | + + + + + + | Free | 1.5 | 1.1 - 4.6 | EXTERNAL | | | Thyroxine | | | LAB | | | Index | | | | | + + + + + + | TSH | 6.840 (H) | 0.450 - 5.100 | EXTERNAL | | | | | u[iU]/mL | LAB | | + + + + + + + + | Specimen | + + | | + + + +---------+ + + | Performing | Address | City/State/Zipcode | Phone Number | | Organization | | | | + +---------+ + + | EXTERNAL LAB | | | | + +---------+ + + External Lab: CBC (03/05/2017 10:58 AM KARTHIK) + + + + + + | Component | Value | Ref Range | Performed | Pathologist | | | | | At | Signature | + + + + + + | WBC | 10.92 | 3.80 - 11.00 | EXTERNAL | | | | | 10*3/uL | LAB | | + + + + + + | Red Blood | 4.33 | 3.70 - 5.10 | EXTERNAL | | | Cells | | 10*6/uL | LAB | | | Counted | | | | | + + + + + + | Hemoglobin | 14.5 | 11.3 - 15.5 | EXTERNAL | | | | | g/dL | LAB | | + + + + + + | Hematocrit, | 41.9 | 34.0 - 46.0 % | EXTERNAL | | | POC | | | LAB | | + + + + + + | MCV | 96.9 | 80.0 - 100.0 fL | EXTERNAL | | | | | | LAB | | + + + + + + | MCH | 33.5 | 27.0 - 34.0 pg | EXTERNAL | | | | | | LAB | | + + + + + + | MCHC | 34.5 | 32.0 - 35.5 | EXTERNAL | | | | | g/dL | LAB | | + + + + + + | RDW-CV | 45.1 | 37 - 53 fL | EXTERNAL | | | | | | LAB | | + + + + + + | Platelet | 264 | 150 - 400 | EXTERNAL | | | Count | | 10*3/uL | LAB | | | Plasma | | | | | + + + + + + | MPV | 9.7 | fL | EXTERNAL | | | | | | LAB | | + + + + + + | Differentia | AUTOMATED | | EXTERNAL | | | l Type | | | LAB | | + + + + + + | % Segmented | 67.77 | % | EXTERNAL | | | | | | LAB | | | Neutrophils | | | | | + + + + + + | % | 23.96 | % | EXTERNAL | | | Lymphocytes | | | LAB | | + + + + + + | % Monocytes | 6.30 | % | EXTERNAL | | | | | | LAB | | + + + + + + | % | 1.43 | % | EXTERNAL | | | Eosinophils | | | LAB | | + + + + + + | % Basophils | 0.54 | % | EXTERNAL | | | | | | LAB | | + + + + + + | Absolute | 7.40 | 1.90 - 7.40 | EXTERNAL | | | Segmented | | 10*3/uL | LAB | | | Neutrophils | | | | | + + + + + + | Absolute | 2.62 | 1.00 - 3.90 | EXTERNAL | | | Lymphocytes | | 10*3/uL | LAB | | + + + + + + | Absolute | 0.69 | 0.00 - 0.80 | EXTERNAL | | | Monocytes | | 10*3/uL | LAB | | + + + + + + | Absolute | 0.16 | 0.00 - 0.50 | EXTERNAL | [...] | | | + +---------+ + + Lipid Panel (03/05/2017 10:58 AM PST) + +---------+ + + + | Component | Value | Ref Range | Performed | Pathologist | | | | | At | Signature | + +---------+ + + + | Cholesterol | 182 | mg/dL | EXTERNAL | | | | | | LAB | | + +---------+ + + + | Triglycerid | 147 | mg/dL | EXTERNAL | | | es | | | LAB | | + +---------+ + + + | HDL | 50 | mg/dL | EXTERNAL | | | | | | LAB | | + +---------+ + + + | LDL, | 103 (H) | mg/dL | EXTERNAL | | | Calculated | | | LAB | | + +---------+ + + + + + | Specimen | + + | Blood specimen | | (specimen) | + + + +---------+ + + | Performing | Address | City/State/Zipcode | Phone Number | | Organization | | | | + +---------+ + + | EXTERNAL LAB | | | | + +---------+ + + Comprehensive Metabolic Panel (03/05/2017 10:58 AM PST) + + + + + + | Component | Value | Ref Range | Performed | Pathologist | | | | | At | Signature | + + + + + + | Na | 137 | 135 - 145 | EXTERNAL | | | | | mmol/L | LAB | | + + + + + + | K | 4.1 | 3.5 - 4.9 | EXTERNAL | | | | | mmol/L | LAB | | + + + + + + | Cl | 101 | 99 - 109 mmol/L | EXTERNAL | | | | | | LAB | | + + + + + + | CO2 | 26 | 23 - 32 mmol/L | EXTERNAL | | | | | | LAB | | + + + + + + | Anion Gap | 14 | 5 - 20 mmol/L | EXTERNAL | | | | | | LAB | | + + + + + + | Glucose, | 80 | 65 - 99 mg/dL | EXTERNAL | | | Fasting | | | LAB | | + + + + + + | BUN | 15 | 8 - 25 mg/dL | EXTERNAL | | | | | | LAB | | + + + + + + | Creatinine | 0.8 | 0.50 - 1.00 | EXTERNAL | | | | | mg/dL | LAB | | + + + + + + | BUN/Creatin | 19 | | EXTERNAL | | | ine Ratio | | | LAB | | + + + + + + | Calcium | 8.9 | 8.5 - 10.5 | EXTERNAL | | | | | mg/dL | LAB | | + + + + + + | Protein, | 7.4 | 6.3 - 8.2 g/dL | EXTERNAL | | | Total | | | LAB | | + + + + + + | Albumin | 4.3 | 3.3 - 4.8 g/dL | EXTERNAL | | | | | | LAB | | + + + + + + | Globulin | 3.1 | 1.3 - 4.9 g/dL | EXTERNAL | | | | | | LAB | | + + + + + + | A/G Ratio | 1.4 | 1.0 - 2.4 | EXTERNAL | | | | | | LAB | | + + + + + + | Bilirubin | 0.5 | 0.1 - 1.5 mg/dL | EXTERNAL | | | Total | | | LAB | | + + + + + + | ALP, | 84 | 35 - 115 U/L | EXTERNAL | | | External | | | LAB | | + + + + + + | AST | 8 (L) | 10 - 45 U/L | EXTERNAL | | | | | | LAB | | + + + + + + | ALT | 22 | 10 - 65 U/L | EXTERNAL [...] GFR BY 1.210. | | | | + + + [...]
--- OUTSIDE RECORDS SUMMARY | ~2019-06-30 | XMS | Encounter Summary ---
Demographics + + + | Address | [address] | | | [place] [address] | + + + | Home Phone | | + + + | Preferred Language | Unknown | + + + | Marital Status | | + + + | Zoroastrian Affiliation | 1041 | + + + [...] Team Providers + +------+ + | Care Life Management Teacher Name | Role | Phone | + +------+ + | Fabrice Hansen DO | PCP | | + +------+ + Reason for Visit + + + | Reason | Comments | + + + | Post-op Problem | Patient had bile duct calculus removal 11/09/18 in [place], 2 | | | stents were placed. She reports abd pain to RUQ. Referred by | | | Meme HENNESSY at [facility]. | + + + | Abdominal Pain | | + + + Encounter Details +--------+ + + + + | Date | Type | Department | Care Team | Description | +--------+ + + + + | 11/16/ | Emergency | [facility] | Alexander Burton | Post-operative pain | | 2019 | | [facility] | MD Karl [address] | (Primary Dx) | | | | [facility] | [address] | | | | | [address] | [place] [address] | | | | | [place], [place] | [phone] | | | | | [address] | | | | | | [phone] | | | +--------+ + + + [...] be sent through Care Everywhere.Pain Response, Understanding (Thai)documented in this encounter Medications at Time of [...] [place] | | | | | | [place] [address] | | | | | | [phone] | | | | | | | [...] + + | Performing | Address | City/State/[facility] | Phone Number | | Organization | [...] | | | Serum | performed at [facility];[address] | mmol/L | LABORATORY | | | | [address];[place] | | | | | | [address] | | | | + + + + + + + + | Specimen | + + | Blood | + + + + + + + | Performing | Address | City/State/Zipcode | Phone Number | | Organization | | | | + + + + + | [facility] | [address] | [place] [address] | [phone] | + + + + + Lipase (11/16/2018 6:09 PM PDT) + + + + + + | Component | Value | Ref Range | Performed | Pathologist | | | | | At | Signature | + + + + + + | Lipase | 40Comment: Testing | 12 - 53 U/L | [facility] | | | | performed at [facility];[address] | | LABORATORY | | | | [address];[place], [place] | | | | | | [address] | | | | + + + + + + + + | Specimen | + + | Blood | + + + + + + + | Performing | Address | City/State/Zipcode | Phone Number | | Organization | | | | + + + + + | [facility] | [address] | [place] [address] | [phone] | + + + + + Comprehensive [...] | >60Comment: GFR <60: | >60 | [facility] | | | GFR | CHRONIC KIDNEY [...] | | | | | | MDRD [facility] traceable | | | | | | equation.Testing | | | | | | performed at [facility] | | | | | | [facility];[place], [place] | | | | | | [address] | | | | + + + + + + + + | Specimen | + + | Blood | + + + + + + + | Performing | Address | City/State/Zipcode | Phone Number | | Organization | | | | + + + + + | [facility] | [address] | [place] [address] | [phone] | + + + + + CBC [...] (H)Comment: Testing | 0.00 - 0.10 | [facility] | | | Absolute | performed at [facility];[address] | K/uL | LABORATORY | | | | [address];[place] | | | | | | [address] | | | | + + + + + + + + | Specimen | + + | Blood | + + + + + + + | Performing | Address | City/State/Zipcode | Phone Number | | Organization | | | | + + + + + | [facility] | [address] | [place] [address] | [phone] | + + + + + Urinalysis [...] - 1.030 | [facility] | | | [place], | | | LABORATORY | | | [...] | | | Urine | performed at [facility];[address] | | LABORATORY | | | | [address] [facility];[place], [place] | | | | | | [address] | | | | + + + [...] | + + + + + | [facility] | [address] | [place] [address] | [phone] | + + + + + documented [...]
--- OUTSIDE RECORDS SUMMARY | ~2019-06-30 | XMS | Encounter Summary ---
Demographics + + + | Address | [address] | | | [place] [address] | + + + | Home Phone | | + + + | Preferred Language | Unknown | + + + | Marital Status | | + + + | Restorationism Affiliation | 1041 | + + + | Race | Unknown | + + + | Ethnic Group | Unknown | + + + Author + + + | Author | [facility] | | | and [place] | + + + | Organization | [facility] | | [...] Team Providers + +------+ + | Care Automation Qa Lead Name | Role | Phone | + [...] [address] | | | | | [place], [place] | [address] | | | | | [address] | [address] [place], [place] | | | | | [phone] | [address] | | | | | | | [...] [place] | | | | | | [place] [address] | | | | | | [phone] | | | | | | | [...] | kU/L | EXTERNAL | | | [place] IgE | range: Class 0 | | [...] + + + + + + | [place] | <0.10Comment: Reference | kU/L | [...]
--- OUTSIDE RECORDS SUMMARY | ~2019-06-30 | XMS | Encounter Summary ---
Demographics + + + | Address | [address] | | | [place] [address] | + + + | Home Phone | | + + + | Preferred Language | Unknown | + + + | Marital Status | | + + + | Worship Affiliation | 1041 | + + + | Race | Unknown | + + + | Ethnic Group | Unknown | + + + Author + + + | Author | [facility] | | | and [place] | + + + | Organization | [facility] | | | [...] Providers + +------+ + | Care Senior Lead Software Engineer Name | Role | Phone | + +------+ + | Fabrice Hansen DO | PCP | | + +------+ + Encounter Details +--------+ + + + + | Date | Type | Department | Care Team | Description | +--------+ + + + + | 03/16/ | Orders Only | [facility] | Arriaga Nikki | Intrahepatic bile | | 2019 | | [address] | I, [place] Driver | duct carcinoma (HCC) | | | | [place] | | ; Hepatic | | | | [address] | | lithiasis; Acute | | | | [phone] | | abdomen | +--------+ + + + + Social [...] MÉ[place]Z | | | | | | [place] [address] | | | | | | [phone] | | | | | | | | +--------+---------+ + + + documented as of this encounter Procedures + +--------+ + + + | Procedure Name | Priori | Date/Time | Associated Diagnosis | Comments | | | ty | | | | + +--------+ + + + | CA 19-9, QUANT | Routin | 03/16/2019 | Intrahepatic bile | Results for this | | | e | 9:52 AM | duct carcinoma (HCC) | procedure are in the | | | | PST | Hepatic lithiasis | results section. | + +--------+ + + + | PROTIME INR | Routin | 03/16/2019 | Acute abdomen | Results for this | | | e | 9:52 AM | Hepatic lithiasis | procedure are in the | | | | PST | | results section. | + +--------+ + + + | CBC NO DIFFERENTIAL | Routin | 03/16/2019 | Hepatic lithiasis | Results for this | | | e | 9:52 AM | | procedure are in the | | | | PST | | results section. | + +--------+ + + + | COMPREHENSIVE | Routin | 03/16/2019 | Hepatic lithiasis | Results for this | | METABOLIC PANEL | e | 9:52 AM | | procedure are in the | | | | PST | | results section. | + +--------+ + + + documented in this encounter Results Aamirime INR (03/16/2019 9:52 AM PST) + + [...] | | | | | performed at [facility];[address] | | [address] | | | | [address];[place] [address] | | | | | | | | | | + + + + + + + + | Specimen | + + | Blood | + + + + + + + | Performing | Address | City/State/Zipcode | Phone Number | | Organization | | | | + + + + + | REFER[facility] | [address] | [place] | [phone] | | [facility] | [address] | [address] | | | LABORATORY | | | | + + + + + | REFERENCE [facility] | [address] | [place] | | | [facility] | Bl[address] | [address] | | | LABORATORY | | | [...] | | | | | performed at [facility];[address] | | | | | | [facility] | | | | | | [facility];[place] [address] | | | | | | | | | | + + + + + + + + | Specimen | + + | Blood | + + + + + + + | Performing | Address | City/State/Zipcode | Phone Number | | Organization | | | | + + + + + | [facility] | [address] [place] [address] | [place] | [phone] | | [facility] | [address] | [address] | | | LABORATORY | | | | + + + + + | REFERENCE LAB | [address] [facility] | [place] | | | [facility] | [address] | [address] | | | LABORATORY | | | [...] REFERENCE | | | | performed at [facility];[address] | | LAB | | | | [place] | | [facility] | | | | [address];[place] [address] | | LABORATORY | | + + + + + + + + | Specimen | + + | Blood | + + + + + + + | Performing | Address | City/State/Zipcode | Phone Number | | Organization | | | | + + + + + | REFERENCE [facility] | [address] | [place] | [phone] | | [facility] | [address] | [address] | | | LABORATORY | | | | + + + + + | REFERENCE [facility] | [address] | [place] | | | [facility] | Bl[address] | [address] | | | LABORATORY | | | | + + + + + CA 19-9, Quant (03/16/2019 9:52 AM PST) [...] | | | | | [facility];[address] | | | | | | [address];[place] [address] | | | | | | | | | | + + + + + + + + | Specimen | + + | Blood | + + + + + + + | Performing | Address | City/State/Zipcode | Phone Number | | Organization | | | | + + + + + | REFERENCE LAB | [address] [facility] | [place] | [phone] | | [facility] | [address] | [address] | | | LABORATORY | | | | + + + + + | REFERENCE LAB | [address] [facility] | [place] | | | [facility] | [address] 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
--- OUTSIDE RECORDS SUMMARY | ~2019-06-30 | XMS | Encounter Summary ---
Demographics + + + | Address | [address] | | | [place] [address] | + + + | Home Phone | | + + + | Preferred Language | Unknown | + + + | Marital Status | | + + + | Scientology Affiliation | 1041 | + + + | Race | Unknown | + + + | Ethnic Group | Unknown | + + + Author + + + | Author | [facility] | | | and [place] | + + + | Organization | [facility] | | [...] Team Providers + +------+ + | Care Assembly Instructions Writer Name | Role | Phone | + +------+ + | Filemon Roy MD | PCP | | + +------+ + Encounter Details +--------+ + + + + | Date | Type | Department | Care Team | Description | +--------+ + + + + | 07/20/ | Hospital | [facility] | Conversion | | | 2018 | Encounter | [facility] | Transaction, | | | | | CLINIC [address] | Provider Unknown | | | | | [address] [place], [place] | [phone] | | | | | [address] | | | | | | [phone] | | | +--------+ + + + [...] + + + | Blood Pressure | 127/71 | 07/20/2017 7:52 AM | | | | | PDT | | + + + + + | Pulse | 66 | 07/20/2017 7:52 AM | | | | | PDT [...] + + + + | Weight | 68.8 kg (151 lb 10.9 | 07/20/2017 7:52 AM | | | | oz) | PDT | | + + + + + | Height | 162.6 cm (5' 4") | 07/20/2017 7:52 AM | | | | | PDT | | + + + + + | Body Mass Index | 26.04 | 07/20/2017 7:52 AM | | | | | PDT | | + + + + + documented in this encounter Medications at Time [...] MÉN[place]Z | | | | | | [place] [address] | | | | | | [phone] | | | | | | | | +--------+---------+ + + + documented as of this encounter Procedures + +--------+ + + + | Procedure Name | Priori | Date/Time | Associated Diagnosis | Comments | | | ty | | | | + +--------+ + + + | XR CHEST 2 VIEWS | Routin | 07/20/2017 | | Results for this | | | e | 9:01 AM | | procedure are in the | | | | PDT | | results section. | + +--------+ + + + | HEMOGLOBIN AND | Routin | 07/20/2017 | | Results for this | | HEMATOCRIT | e | 8:23 AM | | procedure are in the | | | | PDT | | results section. | + +--------+ + + + documented in this encounter Results XR Chest 2 Vws (07/20/2017 9:01 AM PDT) + + | Specimen | + + | | + + + + + | Impressions | Performed At | + + + | 1. No acute cardiopulmonary process noted. Electronically | | | signed by Indio Lopez MD on 07/20/2017 9:04 AM | | + + + + + + | Narrative | Performed At | + + + | [facility] 1945 72 years XR CHEST 2 VIEW FRONTAL AND | | | LATERAL 07/20/2017 9:01 AM INDICATION: Preoperative assessment. | | | History of smoking. COMPARISON study: None. TECHNIQUE: 2 views | | | FINDINGS: Lungs appear clear. Cardiomediastinal silhouette | | | appears unremarkable. The patient is poststernotomy. Mild S-shaped | | | curvature of the thoracic spine. Diffuse mild thoracic spine region | | | changes. No pleural effusion seen. | | + + + + + | Procedure Note | + + | Dex, Jamie Conversion - 09/22/2018 3:26 AM RHETT LEMUS yearsXR | | CHEST 2 VIEW FRONTAL AND LATERAL07/20/2017 9:01 AM INDICATION: Preoperative assessment. | | History of smoking. COMPARISON study: None. TECHNIQUE: 2 views FINDINGS: Lungs appear | | clear. Cardiomediastinal silhouette appears unremarkable. The patient is poststernotomy. | | Mild S-shaped curvature of the thoracic spine. Diffuse mild thoracic spine region | | changes. No pleural effusion seen. IMPRESSION: 1. No acute cardiopulmonary process | | noted. | | | |COMPARISON study: None. | | | |TECHNIQUE: 2 views | | | |FINDINGS: Lungs appear clear. Cardiomediastinal silhouette appears unremarkable. The patie nt is poststernotomy. Mild S-shaped curvature of the thoracic spine. Diffuse mild thoracic s pine region changes. No pleural effusion seen. | | | |IMPRESSION: | |1. No acute cardiopulmonary process noted. | | | | | + + Hemoglobin and Hematocrit (07/20/2017 8:23 AM PDT) + + + + + + | Component | Value | Ref Range | Performed | Pathologist | | | | | At | Signature | + + + + + + | Hemoglobin | 12.9 | 11.3 - 15.5 | EXTERNAL | | | | | g/dL | LAB | | + + + + + + | Hematocrit, | 37.0Comment: Testing | 34.0 - 46.0 % | EXTERNAL | | | POC | performed at [facility];[address] | | LAB | | | | [address];[place] | | | | | | [address] | | | | + + + [...]
--- OUTSIDE RECORDS SUMMARY | ~2019-06-30 | XMS | Encounter Summary ---
Demographics + + + | Address | [address] | | | [place] [address] | + + + | Home Phone [...] Team Providers + +------+ + | Care Organ Tuner Name | Role | Phone | + +------+ + | Fabrice Hansen DO | PCP | | + +------+ + Reason for Visit Diagnostic/Screening (Routine) +--------+--------+ + + + + | Status | Reason | Specialty | Diagnoses / | Referred By | Referred To | | | | | Procedures | Contact | Contact | +--------+--------+ + + + + | Closed | | Radiology | Diagnoses | Cook, | [facility] | | | | | Gall | DANIELLE Crain | [address] | | | | | stones, | [address] | | | | | common bile | [address], [address] | [place], [place] | | | | | duct | [address] | [address] | | | | | [place] | [place], [place] | Phone: | | | | | odenal | [address] | [phone] | | | | | fistula | Phone: | Fax: | | | | | Procedures | [phone] | [phone] | | | | | MRI Abdomen | Fax: | | | | | | w wo | [phone] | | | | | | Contrast | | | | | | | MRCP | | | +--------+--------+ + + + + Encounter Details +--------+ + + + + | Date | Type | Department | Care Team | Description | +--------+ + + + + | 12/27/ | Hospital | [facility] | Breann Maria PA | | | 2019 | Encounter | [facility] [address] | [address] | | | | | [address] | [address] [place], [place] | | | | | [place], [place] | [address] | | | | | [address] | | | | | | [phone] | | | +--------+ + + + [...] Apply 0.025 Units | | 0 | 12/08/20 | | | (KENALOG) 0.025% | topically [...] | | Take 1 tablet by | | 0 | | | | HYDROcodone-acetamin | mouth every 6 hours | | | | 9 | | ophen (NORCO) 5-325 | as needed for Pain | | | | | | mg per tablet | (takes rarely). | | | | | + + + +---------+ + + | levothyroxine | Take 50 mcg by mouth | | 0 | | | | (SYNTHROID) 50 mcg | every morning | | | | 0 | | tablet | (before breakfast). | | | | | + + + +---------+ + + | levothyroxine | TAKE ONE TABLET BY | 90 | 0 | 12/09/19 | | | (SYNTHROID) 50 mcg | MOUTH ONE TIME DAILY | tablet | | 19 | 9 | | tablet | BEFORE BREAKFAST | | | | | + + [...] | | | | | [place] [address] | | | | | | [phone] | | | | | | | | +--------+---------+ + + + documented as of this encounter Procedures + +--------+ + + + | Procedure Name | Priori | Date/Time | Associated Diagnosis | Comments | | | ty | | | | + +--------+ + + + | LABS - EXTERNAL SCAN | | 12/28/2018 | | Results for this | | | | 12:00 AM | | procedure are in the | | | | PST | | results section. | + +--------+ + + + documented in this encounter Results LABS - EXTERNAL SCAN (12/28/2018 12:00 AM PST) + + + | Narrative | Performed At | + + + | Ordered by an | | | unspecified provider. | | + + + documented in this encounter Visit Diagnoses Not on filedocumented in this encounter Administered Medications + +--------+ +-------+------+------+ | Medication Order | MAR | Action | Dose | Rate | Site | | | Action | Date | | | | + +--------+ +-------+------+------+ | gadobutrol (GADAVIST) injection | Given | 12/28/19 | 6 mLs | | | | 6 mL 6 mL, Intravenous, ONCE | | 19 12:16 | | | | | PRN, Other, Starting 12/27/18 | | PM PST | | | | | at 1137, For 1 dose, MRI | | | | | | + +--------+ +-------+------+------+ +---+---+ | | | +---+---+ + +-------+ +--------+---+---+ | sodium chloride (PF) 0.9% | Given | 12/28/19 | 20 mLs | | | | injection flush 20 mL 20 mL, | | 19 12:16 | | | | | Intracatheter, ONCE PRN, Line | | PM PST | | | | | Care, Starting 12/27/18 at | | | | | | | 1137, For 1 dose, MRI | | | | | | + +-------+ +--------+---+---+ +---+---+ | | | +---+---+ documented in this encounter"
--- OUTSIDE RECORDS SUMMARY | ~2019-06-30 | XMS | Encounter Summary ---
Demographics + + + | Address | [address] | | | [place] [address] | + + + | Home Phone [...] Team Providers + +------+ + | Care Physical Ther Name | Role | Phone | + [...] | Radiology | Diagnoses | Rey, | [facility] | | | | | Epigastric | Meme A, | [address] | | | | | abdominal | [facility] [address] | | | | | pain | BLVD | [place], [place] | | | | | History of | [place], [place] | [address] | | | | | cholecystect | [address] | Phone: | | | | | charleen | Phone: | [phone] | | | | | Procedures | [phone] | Fax: | | | | | MRI Abdomen | Fax: | [phone] | | | | | w wo | [phone] | | | | | | Contrast | | | | | | | MRCP | | | +--------+--------+ + + + + Reason for Visit + + + | Reason | Comments | + + + | Follow-up | | + + + | Dysphagia | | + + + Evaluate & Treat (Routine) + + + + + + + | Status | Reason | Specialty | Diagnoses / | Referred By | Referred To | | | | | Procedures | Contact | Contact | + + + + + + + | Authorized | Specialty | Gastroenterol | Diagnoses | Batnadirola, | Rey, | | | Services | ogy | Epigastric | Fabrice | Meme Naik NP | | | Required | | pain | DO Lucius | [address] | | | | | Dysphagia, | [address] | | | | | unspecified | [address] | [place], [place] | | | | | type | [address] | [address] Phone: | | | | | | [place], [place] | [phone] | | | | | | [address] | Fax: | | | | | | Phone: | [phone] | | | | | | [phone] | | | | | | | Fax: | | | | | | | [phone] | | + + + + + + + Encounter Details +--------+---------+ + + + | Date | Type | Department | Care Team | Description | +--------+---------+ + + + | 11/02/ | Office | [facility] | Fabrice Hansen | Epigastric abdominal | | 2019 | Visit | GASTROENTEROLOGY | DO Duarte Kan | pain (Primary Dx); | | | | [address] | [facility] | Elevated LFTs; | | | | [place], [place] | [address] [place], [place] | History of | | | | [address] | [address] | cholecystectomy | | | | [phone] | | | | | | | Meme Le | | | | | | A, [facility] [address] | | | | | | [place] [address] | | | | | | [phone] | | | | | | | [...] + + + | Blood Pressure | 107/76 | 11/02/2018 9:36 AM | | | | | PDT | | + + + + + | Pulse | 65 | 11/02/2018 9:36 AM | | | | | PDT [...] | 63.7 kg (140 lb 6.4 | 11/02/2018 9:36 AM | | | | oz) | PDT | | + + + + + | Height | 162.6 cm (5' 4") | 11/02/2018 9:36 AM | | | | | PDT | | + + + + + | Body Mass Index | 24.1 | 11/02/2018 9:36 AM | | | | | PDT | | + + + + + documented in this encounter Progress Notes Meme Le NP - 11/02/2018 9:40 AM PDT Chief Complaint Patient presents with Follow-up Dysphagia HPI Patient ID: Sharon Way is a 73 y.o. female who presents in follow-up regarding dysp hasia. Patient reports that she is here for episodes of abdominal pain. She is uncertain h ow long episodes have been ongoing but believes she may have been having episodes of epigast cassi abdominal pain intermittently for the last 5 years. She is uncertain when symptoms bega n more frequent. She notes initially pain would occur only very infrequently. Currently no se episodes occur weekly to every 2 weeks with no pattern. Patient states "I can't remember a lot of things". She notes that she rolls on he floor crying. Not effected by eating or dri nking. Symptoms occur out of nowhere. Doesn't wake from sleep. Pantoprazole helps "a little bit". She thinks that episodes might not be as severe since starting pantoprazole. Symptoms feel consistent with previous "gallbladder attacks". She is uncertain if she had gallstone s previous to cholecystectomy. Review of Systems Constitutional: Positive for activity change and fatigue. Negative for appetite change, chi lls, diaphoresis, fever and unexpected weight change. HENT: Negative for ear pain, mouth sores, nosebleeds, sore throat, trouble swallowing and v oice change. Eyes: Negative for pain, redness and visual disturbance. Respiratory: Negative for cough, choking, chest tightness, shortness of breath and wheezing . Cardiovascular: Negative for chest pain, palpitations and leg swelling. Gastrointestinal: Positive for abdominal pain (per pt epigastric pain), diarrhea and vomiti ng. Negative for abdominal distention, anal bleeding, blood in stool, constipation, nausea a nd rectal pain. Heartburn-yes Endocrine: Negative for cold intolerance, heat intolerance and polydipsia. Genitourinary: Negative for difficulty urinating, dysuria, frequency, hematuria, urgency an d vaginal bleeding. Musculoskeletal: Positive for arthralgias. Negative for back pain, gait problem, joint swel ling, myalgias, neck pain and neck stiffness. Skin: Negative [...] and nausea Outpatient Encounter Medications as of 11/02/2018 Medication Sig Dispense Refill acetaminophen (TYLENOL) 500 mg tablet Take 500 mg by mouth. acetaminophen (TYLENOL) 500 mg tablet Take 500 mg by mouth every 6 (six) hours as neede d for Pain. (Patient not taking: Reported on 11/02/2018) albuterol 90 mcg/puff inhaler Inhale 2 puffs into the lungs every 4 (four) hours as nee ded. 1 Inhaler 2 aspirin 81 mg chewable tablet Take 81 mg by mouth daily with breakfast. aspirin 81 mg EC tablet Take 81 mg by mouth Daily. atorvaSTATin (LIPITOR) 40 mg tablet Take 40 mg by mouth Daily. atorvaSTATin (LIPITOR) 40 mg tablet Take 1 tablet by mouth nightly. (Patient not taking : Reported on 11/02/2018) 90 tablet 3 budesonide (PULMICORT FLEXHALER) 180 mcg/puff inhaler Inhale 1 puff into the lungs 2 (t wo) times daily. (Patient not taking: Reported on 11/02/2018) dicyclomine (BENTYL) 20 MG tablet Take 1 tablet by mouth every 6 (six) hours. (Patient not taking: Reported on 11/02/2018) 120 tablet 11 fluticasone (FLONASE) 50 mcg/nasal spray 1 spray by Nasal route as needed. fluticasone (FLONASE) 50 mcg/nasal spray 1 spray by Each Nare route daily. (Patient not taking: Reported on 11/02/2018) ibuprofen (ADVIL,MOTRIN) 600 MG tablet Take 600 mg by mouth as needed. ibuprofen (ADVIL,MOTRIN) 600 MG tablet Take 600 mg by mouth every 6 (six) hours as need ed for Pain (3 x per week). (Patient not taking: Reported on 11/02/2018) levothyroxine (SYNTHROID) 50 mcg tablet Take 50 mcg by mouth Daily. levothyroxine (SYNTHROID) 50 mcg tablet Take 1 tablet by mouth every morning before [facility]. (Patient not taking: Reported on 11/02/2018) 90 tablet 0 lidocaine (LIDODERM) 5% patch Place 1 patch onto the skin as needed. lisinopril (PRINIVIL, ZESTRIL) 10 mg tablet Take 10 mg by mouth as needed. [DISCONTINUED] lisinopril (PRINIVIL, ZESTRIL) 10 mg tablet Take 1 tablet by mouth daily . (Patient not taking: Reported on 11/02/2018) 90 tablet 3 [DISCONTINUED] Methylcellulose, Laxative, (CITRUCEL) 500 MG TABS Take by mouth daily. (Patient not taking: Reported on 11/02/2018) metoprolol succinate (TOPROL-XL) 25 mg 24 hr tablet Take 1 tablet by mouth daily. 90 ta blet 3 [DISCONTINUED] Multiple Vitamins-Minerals (MULTIVITAMIN WITH MINERALS) tablet Take 1 ta blet by mouth daily. (Patient not taking: Reported on 11/02/2018) nitroglycerin (NITROSTAT) 0.[address] 0.4 mg under the tongue as needed. [DISCONTINUED] nitroglycerin (NITROSTAT) 0.[address] 1 tablet under the tong ue every 5 (five) minutes as needed for Chest pain. (Patient not taking: Reported on 11/03/19 19) 25 tablet 3 pantoprazole (PROTONIX) 40 mg tablet Take 1 tablet by mouth Daily. 30 tablet 1 raNITIdine (ZANTAC) 150 mg tablet Take 150 mg by mouth Daily. [DISCONTINUED] tiotropium (SPIRIVA HANDIHALER) 18 mcg inhalation capsule Inhale 1 capsu le into the lungs daily. (Patient not taking: Reported on 11/02/2018) 30 capsule 12 traZODone (DESYREL) 150 MG tablet Take 150 mg by mouth Daily. [DISCONTINUED] traZODone (DESYREL) 150 MG tablet Take 1 tablet by mouth every evening. (Patient not taking: Reported on 11/02/2018) 90 tablet 3 triamcinolone (KENALOG) 0.025% ointment Apply 0.025 Units topically as needed. [DISCONTINUED] triamcinolone (KENALOG) 0.025% ointment Apply to itchy skin bid prn. Us e sparingly (Patient not taking: Reported on 11/02/2018) 30 g 0 venlafaxine (EFFEXOR) 75 MG tablet Take 75 mg by mouth Daily. [DISCONTINUED] venlafaxine (EFFEXOR) 75 MG tablet Take 3 tablets by mouth in the mornin g and 1 tablet in the evening (Patient not taking: Reported on 11/02/2018) 360 tablet 2 VENTOLIN HFA 108 (90 Base) MCG/ACT inhaler Inhale 108 mcg into the lungs as needed. No facility-administered encounter medications on file as of 11/02/2018. Past Medical History: Diagnosis Date Arthritis Asthma Cholelithiasis COPD (chronic obstructive pulmonary disease) ([facility]) 10/18/2012 Coronary artery disease Depression Disorder of thyroid GERD (gastroesophageal reflux disease) Heart attack ([facility]) Heart disease High cholesterol HTN (hypertension) 10/18/2012 Irritable bowel syndrome Joint pain Neuromuscular disorder ([facility]) Visual disturbance glasses Past Surgical History: Procedure Laterality Date APPENDECTOMY CARDIAC CATHERIZATION CARDIOVASCULAR SURGERY TRIPLE BYPASS CARPAL TUNNEL RELEASE Right 10/18/2012 Procedure: CARPAL TUNNEL RELEASE; Surgeon: Yung Gomez MD; Location: [facility] MAIN OR ; Service: Neurosurgery; Laterality: Right; SECTION CHOLECYSTECTOMY COLONOSCOPY 07/2017 CORONARY ARTERY BYPASS GRAFT [address] [place] HYSTERECTOMY OTHER SURGICAL HISTORY OTHER SURGICAL HISTORY CATARACT EXTRACTION OTHER SURGICAL HISTORY UNLISTED PROCEDURE ARTHROSCOPY - bilateral thumbs OTHER SURGICAL HISTORY 08/03/2017 COLONOSCOPY WITH EGD - Procedure: COLONOSCOPY W/ EGD; Surgeon: Rich Frank MD; L ocation: [facility] ENDOSCOPY; Service: Gastroenterology; Laterality: N/A; UPPER GASTROINTESTINAL [...] Smoking status: Current Every Day Smoker Packs/day: 1.00 Smokeless tobacco: Never Used Substance and Sexual Activity Alcohol use: Yes Alcohol/week: 1.2 oz Types: 2 Glasses of wine per week Comment: Alcoholic Drinks/day: Weekly Drug use: Not Currently Comment: Drug use: [...] scleral icterus. Neck: Normal range of motion. Abdominal: Soft. Bowel sounds are normal. She exhibits no distension and no mass. There is tenderness (very mild epigastric). There is no rebound and no guarding. No hernia. Musculoskeletal: Normal range of motion. Neurological: She is alert and oriented to person, place, and time. Skin: Skin is warm and dry. She is not diaphoretic. Psychiatric: She has a normal mood and affect. Her behavior is normal. Judgment and thought content normal. Vitals: 11/02/18 0936 BP: 107/76 Pulse: 65 Weight: 63.7 kg (140 lb 6.4 oz) Height: 1.626 m (5' 4") Body mass index is 24.1 kg/m. No components found for: HGBA1C Lab Results Component Value Date WBC 10.43 05/25/2018 HGB 13.8 05/25/2018 MCV 96.6 05/25/2018 Lab Results Component Value Date NA 137 09/27/2018 K 4.1 09/27/2018 CL 99 09/27/2018 CO2 30 09/27/2018 ANIONGAP 12 09/27/2018 GLUF 66 05/25/2018 BUN 12 09/27/2018 BCR 19 05/25/2018 GLOB 2.9 05/25/2018 BILITOT 0.4 05/25/2018 AST 56 (H) 09/27/2018 ALT 163 (H) 09/27/2018 EGFR >60 09/27/2018 Lab Results Component Value Date CHOL 182 03/05/2017 TRIG 147 03/05/2017 HDL 50 03/05/2017 No results found for: TSH Assessment and Plan: 1. Epigastric abdominal pain MRI Abdomen w wo Contrast MRCP CANCELED: MRI Abdomen w wo Contrast MRCP 2. Elevated LFTs 3. History of cholecystectomy MRI Abdomen w wo Contrast MRCP Differential diagnosis for epigastric abdominal pain includes peptic ulcer disease, gastroe sophageal reflux, gastritis, pancreatitis, DC, pericarditis, ruptured aortic aneurysm, early appendicitis, gastroenteritis, bowel obstruction or neoplasm among others. Symptoms concern ing for choledocholithiasis with elevated LFT. She does have a history of previous liver abs cess. Will check MRI with MRCP stat for further evaluation. Recommendations: Check MRCP for evaluation of above. Previous CT would not show changes. Follow up recommendations pending MRI results. Thank you for allowing me to participate in the care of your patient. Please do not hesitat e to call me with any questions or concerns. Meme Le NP [facility] Gastroenterology 11/02/2018 10:26 Dictated using [employer] translation software. Edited at time of packaging design engineer however sound alike packaging design engineer errors may still be prese nt. Please [...] [address] | | | | | | [place] [address] | | | | | | [phone] | | | | | | | | +--------+---------+ + + + documented as of this encounter Results MRI Abdomen w wo [...] | | potential surgical candidacy. (Based on [employer] | | | [employer] and [place] Guidelines, 2017) . 3. No imaging evidence of | | | acute pancreatitis. 4. Fatty metaplasia noted at the left ventricular | | | cardiac apex, consistent with prior myocardial infarction. | | | Signed by: Shanell Brown, Edin Sign Date/Time: | | | 11/02/2018 7:24 [...] | | potential surgical candidacy. (Based on [employer] | | and [place] [...] | + + | Epigastric abdominal pain - Primary Abdominal pain, epigastric | + + | Elevated LFTs Other abnormal blood chemistry | + + | History of cholecystectomy Other acquired absence of organ | + + documented in this encounter
--- OUTSIDE RECORDS SUMMARY | ~2019-06-30 | XMS | Encounter Summary ---
Demographics + + + | Address | [address] | | | [place] [address] | + + + | Home Phone | | + + + | Preferred Language | Unknown | + + + | Marital Status | | + + + | Methodist Affiliation | 1041 | + + + | Race | Unknown | + + + | Ethnic Group | Unknown | + + + Author + + + | Author | [facility] | | | and Luisana | + + + | Organization | [facility] | | [...] Team Providers + +------+ + | Care Sales Order Processor Name | Role | Phone | + +------+ + | Fabrice Hansen DO | PCP | | + +------+ + Encounter Details +--------+ + + + + | Date | Type | Department | Care Team | Description | +--------+ + + + + | 11/12/ | Documentati | [facility] | Breann Maria PA | | | 2019 | on | and Pancreas GI | [address], [place] | | | | | [address] | [address] [place] | | | | | [address] | [address] | | | | | [place] | | | | | | [address] | | | | | | [phone] | | | +--------+ + + + [...] documented as of this encounter Progress Notes Jana Landa - 11/12/2018 4:55 PM PDTI have updated the referral and dropped the ord ers internally to [facility]. Patient does not require authorization so she does not have to amie t for them to contact her if she does not want too. oletic, Gabriela Salas RN - 11/12/2018 4:55 PM PDTSpoke with Car ol. Discussed f/u plan described in Breann SANTOS's note. Pt states she has been in contact with local GI. She was in [facility] ER 2 days ago d/t abdominal pain. Pain resolved now but she states no BM in ~10 days. She states she reported this in ER. CT was done 11/16. She has fle ets enema that she plans to take today. She has appt with GI [facility] next Thursday. Labs and M MATERIAL HANDLING SUPERVISOR can be done at [facility] in 4-6 weeks but ERCP will need to be completed in [place]. Arlene t was given Dr. Thompson's production control scheduler's phone number. She agrees to f/u with [facility] GI. Called Meme Rivera's office at [facility] GI. Left message for clinical staff to c/b for co ordinating POC. [employer] to [facility] requesting location change for MRCP. Labs faxed to [facility] at [phone]. Elect ronically signed by Gabriela Leal, RN at 11/18/2018 4:50 PM PDTGoletic, Gabriela Salas RN - 11/12/2018 4:55 PM PDTCalled pt to discuss f/u plan. No answer. LVMTCB. Electronically s igned by Gabriela Leal, RN at 11/18/2018 12:12 PM PDTCookBreann PA - 11/12/2018 4:55 PM PDT GI CHART UPDATE: Dr. Thompson would like pt to get CBC, CMP and MRCP in 4-6 wks with f/u ERCP in 6-8 wks. Orde rs have been placed, but pt lives in [place] and looks like she has appt with local GI in [facility] on 11/24. I will ask Dr. Thompson's nurse to call pt and ensure she has adequate f/u in blu and is aware of his plans for her. documented in this encounter Plan of Treatment +--------+---------+ + + + | Date | Type | Specialty | Care Team | Description | +--------+---------+ + + + | 07/18/ | Office | Cardiology | Erin Limon | | | 2019 | Visit | | [address] | | | | | | [address] | | | | | | [place] [address] | | | | | | [phone] | | | | | | | | +--------+---------+ + + + documented as of this encounter Visit Diagnoses Not on filedocumented in this encounter"
--- OUTSIDE RECORDS SUMMARY | ~2019-06-30 | XMS | Encounter Summary ---
Demographics + + + | Address | [address] | | | [place] [address] | + + + | Home Phone [...] + + | Author | [facility] | | | and Luisana | + + + | Organization | [facility] | | | [...] Team Providers + +------+ + | Care Track Mechanic Name | Role | Phone | + +------+ + | Fabrice Hansen DO | PCP | | + +------+ + Encounter Details +--------+ + + + + | Date | Type | Department | Care Team | Description | +--------+ + + + + | 09/24/ | Orders Only | [facility] | Erin Limon | Atherosclerotic | | 2018 | | [facility] | [address] | heart disease of | | | | [address] | [address] | [place] coronary | | | | [address] [place], [place] | [place] [address] | artery with angina | | | | [address] | [phone] | pectoris (HCC); | | | | [phone] | | Coronary angioplasty | | | [...] [address] | | | | | | [place] [address] | | | | | | [phone] | | | | | | | [...] 03/12/2018, Expires: | | | | | [place] coronary | 11/04/2018 | | | | [...] | | | | | performed at [facility];[address] | | | | | | [facility] | | | | | | vd;[place] [address] | | | | | | | | | | + + + + + + + + | Specimen | + + | Blood | + + + + + + + | Performing | Address | City/State/Zipcode | Phone Number | | Organization | | | | + + + + + | REFERENCE LAB | [address] [place] [address] | [place], [place] | [phone] | | [facility] | [address] | [address] | | | LABORATORY | | | | + + + + + | REFERENCE LAB | [address] [place] [address] | [place], [place] | | | [facility] | [address] 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
--- OUTSIDE RECORDS SUMMARY | ~2019-06-30 | XMS | Encounter Summary ---
Demographics + + + | Address | [address] | | | [place] [address] | + + + | Home Phone | | + + + | Preferred Language | Unknown | + + + | Marital Status | | + + + | Muslim Affiliation | 1041 | + + + [...] Team Providers + +------+ + | Care Piling Cutter Name | Role | Phone | + [...] + + | 12/09/ | Telephone | [facility] | Bacilio Thompson MD | Abdominal Pain | | 2019 | | and Pancreas GI | [address] [place] | | | | | [facility] [address] | [address] [place] | | | | | [address] | [id number] | | | | | [place] | | | | | | [address] | | | | | | [phone] | | | +--------+ + + + [...] [address] | | | | | | [place] [address] | | | | | | [phone] | | | | | | | | +--------+---------+ + + + documented as of this encounter Visit Diagnoses Not on filedocumented in this encounter"
--- OUTSIDE RECORDS SUMMARY | ~2019-06-30 | XMS | Encounter Summary ---
Demographics + + + | Address | [address] | | | [place] [address] | + + + | Home Phone | | + + + | Preferred Language | Unknown | + + + | Marital Status | | + + + | Taoism Affiliation | 1041 | + + + | Race | Unknown | + + + | Ethnic Group | Unknown | + + + Author + + + | Author | [facility] | | | and Luisana | + + + | Organization | [facility] | | [...] Team Providers + +------+ + | Care Elevator Dispatcher Name | Role | Phone | + +------+ + | Fabrice Hansen DO | PCP | | + +------+ + Reason for Visit + + + | Reason | Comments | + + + | Follow-up | Schedule | + + + Encounter Details +--------+ + + + + | Date | Type | Department | Care Team | Description | +--------+ + + + + | 10/29/ | Telephone | [facility] | Rich Frank | Follow-up (Schedule) | | 2019 | | GASTROENTEROLOGY | MD Sylvester [address] | | | | | [address] | [place] [address] | | | | | [place], [place] | [phone] | | | | | [address] | | | | | | [phone] | | | +--------+ + + + [...] | | | | | [place] [address] | | | | | | [phone] | | | | | | | | +--------+---------+ + + + documented as of this encounter Visit Diagnoses Not on filedocumented in this encounter"
--- OUTSIDE RECORDS SUMMARY | ~2019-06-30 | XMS | Encounter Summary ---
Demographics + + + | Address | [address] | | | [place] [address] | + + + | Home Phone | | + + + | Preferred Language | Unknown | + + + | Marital Status | | + + + | Mandaen Affiliation | 1041 | + + + [...] Team Providers + +------+ + | Care Validation Intern Name | Role | Phone | [...] + + | 10/13/ | Telephone | [facility] | Fabrice Hansen | Results | | 2019 | | [facility] | DO Duarte Kan | | | | | PR[address] | [address] | | | | | [address] | [address] [place], [place] | | | | | [place], [place] | [address] | | | | | [address] | | | | | | [phone] | | | +--------+ + + + [...] | | | | | [place] [address] | | | | | | [phone] | | | | | | | | +--------+---------+ + + + documented as of this encounter Visit Diagnoses Not on filedocumented in this encounter"
--- OUTSIDE RECORDS SUMMARY | ~2019-06-30 | XMS | Encounter Summary ---
Demographics + + + | Address | [address] | | | [place] [address] | + + + | Home Phone | | + + + | Preferred Language | Unknown | + + + | Marital Status | | + + + | Restoration Affiliation | 1041 | + + + | Race | Unknown | + + + | Ethnic Group | Unknown | + + + Author + + + | Author | [facility] | | | and Luisana | + + + | Organization | [facility] | | [...] Team Providers + +------+ + | Care Milieu Technician Name | Role | Phone | [...] | | | test | [address] | [place], [place] | | | | | Procedures | [address] | [address] | | | | | CT Abdomen w | [place], [place] | Phone: | | | | | wo Contrast | [address] | [phone] | | | | | | Phone: | Fax: | | | | | | [phone] | [phone] | | | | | | Fax: | | | | | | | [phone] | | + +--------+ + + + + Reason for Visit + + + | Reason | Comments | + + + | Lab Results | | + + + Encounter Details +--------+ + + + + | Date | Type | Department | Care Team | Description | +--------+ + + + + | 10/07/ | Telephone | [facility] | Fabrice Hansen | Lab Results | | 2019 | | [facility] | DO Lucius [address] | | | | | [address] | [address] | | | | | [address] | [address] [place], [place] | | | | | [place], [place] | [address] | | | | | [address] | | | | | | [phone] | | | +--------+ + + + [...] MÉNDEZ | | | | | | [place] [address] | | | | | | [phone] | | | | | | | [...]
--- OUTSIDE RECORDS SUMMARY | ~2019-06-30 | XMS | Encounter Summary ---
Demographics + + + | Address | [address] | | | [place] [address] | + + + | Home Phone | | + + + | Preferred Language | Unknown | + + + | Marital Status | | + + + | Christian Affiliation | 1041 | + + + [...] Team Providers + +------+ + | Care Conservation Or Heritage Architect Name | Role | Phone | + [...] | | | [address] [place] | [address] | | | | | [address] | | | | | | [phone] | | | +--------+---------+ + + + [...] Walton MD - 11/11/2018 4:38 PM PDT [facility] PMG FACULTY HOSPITALIST DISCHARGE SUMMARY PATIENT NAME: [...] FOLLOW UP: Meme Le NP New address: [address] [place] [address] On 11/24/2018 Follow up appointment with your GI provider at 10:50am. Fabrice Amos DO [address] [facility] [address] In 1 week ISSUES REQUIRING FOLLOW [...] SPENT ON DISCHARGE: greater than 30 minutes Electronically signed by: Freddie Walton MD, [facility], [facility] on 11/11/2018 16:58 Portions of this chart may have been created with [employer] voice recognition software. Occasi onal wrong-word or [...] neck or jaw pain Date Last Reviewed: 04/09/201719998018-5248 [employer]. [address] [place] [address]. All righ ts reserved. This information is [...] biliary sphincterotomy and balloon extraction. A 10 [place]er 7 cm biliary stent was placed [...] here or in the Assessment and Plan. [facility] Associated attestation - Rashi Thompson [...] CAD, hypothyroidism and GERD. Was admitted [facility] for an ERCP for choledocolithiasis. Assessment and [...] - Single Lumen 11/09/18 1125 Right Hand sokh-xiy-dcqkoq catheter system 20 gauge;1 in length 1 [...] - 99 mg/dL Final Comment: Performed by [facility] [address] [place] [address] All pertinent labs and imaging have been reviewed. Please refer to the Assessment and Plan for details on management. I spent 36 minutes with the patient and on the patient's unit, with over 50% spent in couns eling and/or coordination of care. Please refer to the Assessment and Plan for details. Electronically signed by: Freddie Walton MD, FACP, [facility] 11/10/2018 15:45 Portions of this chart may have been created with [employer] voice recognition software. Occasi onal wrong-word or [...] AM PDT GASTROENTEROLOGY INPATIENT DAILY PROGRESS NOTE [facility]1 [facility] PATIENT INFORMATION [...] biliary sphincterotomy and balloon extraction. A 10 [place] 7 cm biliary stent was placed [...] here or in the Assessment and Plan. [facility] Gastroenter[facility] Associated attestation - Rashi Thompson [...] TUNNEL RELEASE; Surgeon: Yung Gomez MD; [facility] ; Service: Neurosurgery; Laterality: Right; SECTION CHOLECYSTECTOMY COLONOSCOPY 07/2017 CORONARY ARTERY BYPASS GRAFT [address] [place] HYSTERECTOMY LIVER SURGERY 01/2018 LIVER DRAIN FOR LIVER ABCESS OTHER SURGICAL HISTORY OTHER SURGICAL HISTORY CATARACT EXTRACTION OTHER SURGICAL HISTORY UNLISTED PROCEDURE ARTHROSCOPY - bilateral thumbs OTHER SURGICAL HISTORY 08/03/2017 COLONOSCOPY WITH EGD - Procedure: COLONOSCOPY W/ EGD; Surgeon: Rich Frank MD; L ocation: [facility]; Service: Gastroenterology; Laterality: N/A; UPPER [...] has been changed since signin Order [facility] [place] levothyroxine (SYNTHROID) 50 mcg tablet (Taking) Take 50 mcg by mouth Daily. lisinopril (PRINIVIL, ZESTRIL) 10 mg tablet (Taking) Take 10 mg by mouth Daily. Number of times this order has been changed since signin Order [facility] [place] metoprolol succinate (TOPROL-XL) 25 mg 24 hr [...] has been changed since signin Order [facility] [place] pantoprazole (PROTONIX) 40 mg tablet (Taking) Take 1 tablet by mouth Daily. Number of times this order has been changed since signin Order [facility] [place] traZODone (DESYREL) 150 MG tablet (Taking) Take 75-150 mg by mouth Daily. Number of times this order has been changed since signin Order [facility] [place] triamcinolone (KENALOG) 0.025% ointment (Taking) Apply 0.025 Units topically as needed fo r Rash. Number of times this order has been changed since signin Order [facility] [place] venlafaxine (EFFEXOR) 75 MG tablet (Taking) Take [...] held with the patien t or patient's telephone services sales representative prior to the procedure. Benefits and [...] MÉNDEZ | | | | | | [place] [address] | | | | | | [phone] | | | | | | | [...] | TRACEMASTER | | Duration:168 msP Horizontal [place]:35 degP Front [place]onia:17 degQ Onset:508 | | | msQRSD Interval:98 msQT Interval:464 msQTcB:397 msQTcF:418 msQRS | | | Horizontal [place]onia:-76 degQRS Ionia:-38 degI-40 Horizontal Ionia:-25 | | | degI-40 Front Ionia:-36 degT-40 Horizontal Ionia:-90 degT-40 Front | | | Ionia:-42 degT Horizontal I[place]:234 degT Wave I[place]:162 degS-T Horizontal | | | Ionia:115 degS-T Front [place]onia:128 degSeverity:- ABNORMAL ECG | | | -INTERP:SINUS BRADYCARDIAINTERP:VENTRICULAR TRIGEMINYINTERP:LEFT AXIS | | | DEVIATIONINTERP:BORDERLINE R WAVE PROGRESSION, ANTERIOR | | | LEADSINTERP:NONSPECIFIC T ABNORMALITIES, ANT-LAT LEADSElectronically | | | signed by: BIBI RAGLAND 11-11-2018 14:52:09 | | |QRS Horizontal Ionia:-76 deg | | |QRS Ionia:-38 deg | | |I-40 Horizontal Ionia:-25 deg | | |I-40 Front Ionia:-36 deg | | |T-40 Horizontal Ionia:-90 deg | | |T-40 Front Ionia:-42 deg | | |T Horizontal Ionia:234 deg | | |T Wave Ionia:162 deg | | |S-T Horizontal Ionia:115 deg | | |S-T Front Ionia:128 deg | | |Severity:- ABNORMAL ECG - [...] + + | [place] | [address] | [place] [address] | [phone] | + + + + + CBC [...] ENCE | | | Immature | by [facility] [address], | K/uL | SACRED | | | Granulocyte | [place] [address] | | HEART | | | s |Performed by [facility] [address], [place] [address] | | MEDICA L | | | [...] + + | [facility] | [address] | [place] [address] | | | [facility] | | | | | LABORATORY [...] | | LABORATORY | | | | [facility] [address], | | [place] | | | | [place] [address] | | | | + + + + + + + + | Specimen | + + | Blood specimen | | (specimen) | + + + + + + + | Performing | Address | City/State/Zipcode | Phone Number | | Organization | | | | + + + + + | [facility] [place] | [address] | [place] [address] | | | [facility] | | | | | LABORATORY [...] [facility] | | | | Performed by [facility] [address] | | SACRED | | | | [address] [place] | | HEART | | | | [address] | | MEDICAL | | | | [...] SACRED | [address] | [place] [address] | | | [facility] | | | | | LABORATORY [...] ENCE | | | Total | by [facility] [address], | | SACRED | | | | [place] [address] | | HEART | | | |Performed by [facility] [address], [place] [address] | | MEDICA L | | | [...] + + | [facility] | [address] | [place] [address] | | | HEART [facility] | | | | | LABORATORY [...] | | | Estimate | Performed by [facility] [address] | | SACRED | | | | [address], [place], [place] | | HEART | | | | [address] | | MEDICAL | | | | [...] SACRED | [address] | [place] [address] | | | [facility] | [...] | | LABORATORY | | | | [facility] [address], | | CERNER | | | | [place] [address] | | | | + + + + + + + + | Specimen | + + | Blood specimen | | (specimen) | + + + + + + + | Performing | Address | City/State/Zipcode | Phone Number | | Organization | | | | + + + + + | [facility] | [address] | [place] [address] | | | [facility] | | | | | LABORATORY [...] | | LABORATORY | | | | [facility] [address], | | [place] | | | | [place] [address] | | | | + + + + + + + + | Specimen | + + | Blood specimen | | (specimen) | + + + + + + + | Performing | Address | City/State/Zipcode | Phone Number | | Organization | | | | + + + + + | [facility] | [address] | [place] [address] | | | [facility] | | | | | LABORATORY [...] | | | Immature | Performed by [facility] [address] | K/uL | SACRED | | | Granulocyte | [address] [place], [place] | | HEART | | | s | [address] | | MEDICAL | | | | [...] + + | [facility] | [address] | [place] [address] | | | [facility] | | | | | HAZEL [...] removal and stent placement. | | | Mc Kay Machine Operator Dr. Thompson. Fluoro Time: 24 minute(s)41 seconds. [...] | sphincterotomy, stone removal and stent placement. Mc Kay Machine Operator | | Jay. | | | | [...] | [facility] | [place] | | [facility] | PROVATION | | CenterGI | | | Patient Name: Sharon Way Ann Procedure | | | Date: 11/09/2018 1:37 PMMRN: [id number] | | | of : 1945 | [...] | | | | | Findings: The furnace utility operator film was normal. [place] ampulla was | | | noted in [...] | | | placed. Finally a 10 [place] 7cm plastic biliary stent was placed [...] | sphincterotomy and balloon extraction. A 10 [place] 7 cm biliary | | | [...] | | 1:37 PMNumber of Addenda: 0 [facility] | | | Center - Endoscopy Services | | |RASHI THOMPSON MD | | |11/09/2018 5:46:27 PM | | |This report has been signed electronically. | | | | | |Note Initiated On: 11/09/2018 1:37 PM | | |Number of Addenda: 0 | | | | | | [facility] - Endoscopy Services | | + + [...] | TRACEMASTER | | Duration:164 msP Horizontal Ionia:30 degP Front Ionia:17 degQ Onset:504 | | | msQRSD Interval:92 msQT Interval:448 msQTcB:429 msQTcF:435 msQRS | | | Horizontal Ionia:-54 degQRS Ionia:-34 degI-40 Horizontal Ionia:-1 degI-40 | | | Front Ionia:-33 degT-40 Horizontal Ionia:-70 degT-40 Front Ionia:-41 | | | degT Horizontal [place]:254 degT Wave I[place]:-20 degS-T Horizontal Ionia:129 | | | degS-T Front Ionia:140 degSeverity:- ABNORMAL ECG -INTERP:SINUS | | | BRADYCARDIAINTERP:VENTRICULAR TRIGEMINYINTERP:LEFT AXIS | | | DEVIATIONINTERP:NONSPECIFIC T ABNORMALITIES, ANTERIOR | | | LEADSElectronically signed by: BIBI RAGLAND 11-09-2018 12:40:55 | | |QTcF:435 ms | | |QRS Horizontal Ionia:-54 deg | | |QRS Ionia:-34 deg | | |I-40 Horizontal Ionia:-1 deg | | |I-40 Front Ionia:-33 deg | | |T-40 Horizontal Ionia:-70 deg | | |T-40 Front Ionia:-41 deg | | |T Horizontal Ionia:254 deg | | |T Wave I[place]:-20 deg | | |S-T Horizontal Ionia:129 deg | | |S-T Front Ionia:140 deg | | |Severity:- ABNORMAL ECG - [...] + + | [place] TRACEMAST[facility] | [address] | [place] [address] | [phone] | + + + + + POC Glucose (11/09/2018 11:31 AM PDT) + + + + --+ + | Component | Value | Ref Range | Performed | Pathologist | | | | | At | Signature | + + + + --+ + | Glucose, | 89Comment: Performed by | 65 - 99 mg/dL | [facility] | | | POC | [facility] [address], | | SACRED | | | | [place] [address] | | HEART | | | |Performed by [facility] [address], [place] [address] | | MEDICAL | | | | [...] + + | [facility] | [address] | [place] [address] | | | [facility] | | | | | LABORATORY [...] | | | | | | longer, wtisqf-mjy-kkryv use of | | | | | [...] | | | | | | | [facility] 11/11/18 at 0730, Give before | | [...]
--- OUTSIDE RECORDS SUMMARY | ~2019-06-30 | XMS | Encounter Summary ---
Demographics + + + | Address | [address] | | | [place] [address] | + + + | Home Phone | | + + + | Preferred Language | Unknown | + + + | Marital Status | | + + + | Latter-Day Affiliation | 1041 | + + + | Race | Unknown | + + + | Ethnic Group | Unknown | + + + Author + + + | Author | [facility] | | | and [place]ana | + + + | Organization | [facility] | | | [...] Team Providers + +------+ + | Care Paper Winder Name | Role | Phone | + [...] + + | 12/06/ | Refill | [facility] | Fabrice Hansen | Medication Refill | | 2019 | | [facility] | DO Duarte [address] | | | | | [address] | [facility] | | | | | [address] [facility] [address] | [address] [place], [place] | | | | | [place], [place] | [id number] | | | | | [address] | | | | | | [phone] | | | +--------+--------+ + + + [...] | | | | | [place] [address] | | | | | | [phone] | | | | | | | | +--------+---------+ + + + documented as of this encounter Visit Diagnoses Not on filedocumented in this encounter"
--- OUTSIDE RECORDS SUMMARY | ~2019-06-30 | XMS | Encounter Summary ---
Demographics + + + | Address | [address] | | | [place] [address] | + + + | Home Phone | | + + + | Preferred Language | Unknown | + + + | Marital Status | | + + + | Amish Affiliation | 1041 | + + + | Race | Unknown | + + + | Ethnic Group | Unknown | + + + Author + + + | Author | [facility] | | | and [place]ana | + + + | Organization | [facility] | | | and [...] Providers + +------+ + | Care Senior Construction Estimator Name | Role | Phone | + [...] | | | unspecified | [address] | [place], [place] | | | | | type | [address] | [address] Phone: | | | | | | [place], [place] | [phone] | | | | | | [address] | Fax: | | | | | | Phone: | [phone] | | | | | | [phone] | | | | | | | Fax: | | | | | | | [phone] | | + + + + + + + Encounter Details +--------+---------+ + + + | Date | Type | Department | Care Team | Description | +--------+---------+ + + + | 11/24/ | Office | [facility] | ReyCinthiaMeme | Calculus of bile | | 2019 | Visit | GASTROENTEROLOGY | A, TEMPER MILL ROLLER [address] | duct with | | | | [address] | [place] [address] | cholangitis and | | | | [place], [place] | [phone] | obstruction, | | | | [address] | | unspecified | | | | [phone] | | cholangitis acuity | | | [...] TUNNEL RELEASE; Surgeon: Yung Gomez MD; Location: [facility] MAIN OR ; Service: Neurosurgery; Laterality: Right; SECTION CHOLECYSTECTOMY COLONOSCOPY 07/2017 CORONARY ARTERY BYPASS GRAFT [address] [place] ERCP N/A 11/09/2018 Procedure: ERCP, SPYGLASS; Surgeon: Bacilio Thompson MD; Location: [facility] MEDICAL PROCEDURE UN IT HYSTERECTOMY LIVER SURGERY 01/2018 LIVER DRAIN FOR LIVER ABCESS OTHER SURGICAL HISTORY OTHER SURGICAL HISTORY CATARACT EXTRACTION OTHER SURGICAL HISTORY UNLISTED PROCEDURE ARTHROSCOPY - bilateral thumbs OTHER SURGICAL HISTORY 08/03/2017 COLONOSCOPY WITH EGD - Procedure: COLONOSCOPY W/ EGD; Surgeon: Rich Frank MD; L ocation: [facility] ENDOSCOPY; Service: Gastroenterology; Laterality: N/A; [...] identified. She does have scheduled ERCP with [facility] which she will keep. S he also has MRI scheduled prior to ERCP. She will follow-up in our office postprocedure and as needed. She does have our contact office numbers if needed. Recommendations: Complete MRI as ordered by [facility] Complete ERCP as scheduled with [place] Follow-up in our office postprocedure and as needed. Thank you for allowing me to participate in the care of your patient. Please do not hesitat e to call me with any questions or concerns. Meme Le NP [facility] Gastroenterology 11/30/2018 15:09 Dictated using [employer] translation software. Edited at time of hospice clinical manager however sound alike hospice clinical manager errors may still be prese nt. Please [...] MÉNDEZ | | | | | | [place] [address] | | | | | | [phone] | | | | | | | | +--------+---------+ + + + documented as of this encounter Visit Diagnoses + + | Diagnosis | + + | Calculus of bile duct with cholangitis and obstruction, unspecified cholangitis acuity | | - Primary | + + | Other constipation | + + documented in this encounter
--- OUTSIDE RECORDS SUMMARY | ~2019-06-30 | XMS | Encounter Summary ---
Demographics + + + | Address | [address] | | | [place] [address] | + + + | Home Phone | | + + + | Preferred Language | Unknown | + + + | Marital Status | | + + + | Confucianism Affiliation | 1041 | + + + | Race | Unknown | + + + | Ethnic Group | Unknown | + + + Author + + + | Author | [facility] | | | and [place] | + + + | Organization | [facility] | | | [...] Team Providers + +------+ + | Care Material Spreader Name | Role | Phone | + +------+ + | Fabrice Hansen DO | PCP | | + +------+ + Reason for Visit +--------+ + | Reason | Comments | +--------+ + | Other | requesting new script | +--------+ + Encounter Details +--------+ + + + + | Date | Type | Department | Care Team | Description | +--------+ + + + + | 04/05/ | Telephone | [facility] | Fabrice Hansen | Other (requesting | | 2019 | | [facility] | DO Duarte [address] | mak malik) | | | | [address] | [address] | | | | | [address] | [address] [place], [place] | | | | | [place], [place] | [id number] | | | | | [address] | | | | | | [phone] | | | +--------+ + + + [...] | | | | | [place] [address] | | | | | | [phone] | | | | | | | | +--------+---------+ + + + documented as of this encounter Visit Diagnoses Not on filedocumented in this encounter"
--- OUTSIDE RECORDS SUMMARY | ~2019-06-30 | XMS | Encounter Summary ---
Demographics + + + | Address | [address] | | | [place] [address] | + + + | Home Phone | | + + + | Preferred Language | Unknown | + + + | Marital Status | | + + + | Sikhism Affiliation | 1041 | + + + | Race | Unknown | + + + | Ethnic Group | Unknown | + + + Author + + + | Author | [facility] | | | and [place]ana | + + + | Organization | [facility] | | [...] Team Providers + +------+ + | Care Territory Representative Name | Role | Phone | [...] + + | 11/24/ | Refill | [facility] | Fabrice Hansen | Medication Refill | | 2019 | | [facility] | DO Duarte Kan [address] | | | | | PR[address] | [facility] | | | | | [address] [facility] [address] | [address] [place], [place] | | | | | [place], [place] | [id number] | | | | | [address] | | | | | | [phone] | | | +--------+--------+ + + + [...] | | | | | [place] [address] | | | | | | [phone] | | | | | | | | +--------+---------+ + + + documented as of this encounter Visit Diagnoses Not on filedocumented in this encounter"
--- OUTSIDE RECORDS SUMMARY | ~2019-06-30 | XMS | Encounter Summary ---
Demographics + + + | Address | [address] | | | [place] [address] | + + + | Home Phone | | + + + | Preferred Language | Unknown | + + + | Marital Status | | + + + | Mandaeism Affiliation | 1041 | + + + | Race | Unknown | + + + | Ethnic Group | Unknown | + + + Author + + + | Author | [facility] | | | and [place] | + + + | Organization | [facility] | [...] Team Providers + +------+ + | Care Portable Sawmill Operator Name | Role | Phone | + +------+ + PCP | Unavailable | + +------+ + Encounter Details +--------+ + + + + | Date | Type | Department | Care Team | Description | +--------+ + + + + | 07/14/ | Hospital | [facility] | Marshall Gutierrez Anastasia, | CORONARY ATHEROSCLER | | 2001 - | Encounter | [facility] | MD Sergey [address] | UNSPEC VESSEL | | | | CLINICAL DECISION | [place] [address] | | | 07/15/ | | [address] [facility] [facility] | [phone] | | | 2001 | | [place], [place] | | | | | | [address] | | | | | | [phone] | | | +--------+ + + + [...] MÉNDEZ | | | | | | [place] [address] | | | | | | [phone] | | | | | | | | +--------+---------+ + + + documented as of this encounter Visit Diagnoses + + | Diagnosis | + + | Coronary atherosclerosis of unspecified type of vessel, mi'kmaq or graft | + + documented in this encounter"
--- OUTSIDE RECORDS SUMMARY | ~2019-06-30 | XMS | Encounter Summary ---
Demographics + + + | Address | [address] | | | [place] [address] | + + + | Home Phone | | + + + | Preferred Language | Unknown | + + + | Marital Status | | + + + | Confucianism Affiliation | 1041 | + + + | Race | Unknown | + + + | Ethnic Group | Unknown | + + + Author + + + | Author | [facility] | | | and Luisana | + + + | Organization | [facility] | | | [...] Team Providers + +------+ + | Care Lockstitch Binder Name | Role | Phone | + +------+ + PCP | Unavailable | + +------+ + Encounter Details +--------+ + + + + | Date | Type | Department | Care Team | Description | +--------+ + + + + | 10/14/ | Hospital | [facility] | Conversion | | | 2013 | Encounter | [facility] | Transaction, | | | | | CLINIC [address] | Provider Unknown | | | | | [place], [place] | | | | | | [address] | (Fax) | | | | | [phone] | | | +--------+ + + + [...] M[place] | | | | | | [place] [address] | | | | | | [phone] | | | | | | | | +--------+---------+ + + + documented as of this encounter Procedures + +--------+ + + + | Procedure Name | Priori | Date/Time | Associated Diagnosis | Comments | | | ty | | | | + +--------+ + + + | MRSA NAAT | Timed | 10/14/2012 | | Results for this | | | | 10:27 AM | | procedure are in the | | | | PDT | | results section. | + +--------+ + + + | ECG 12 LEAD | Routin | 10/14/2012 | | Results for this | | | e | 9:57 AM | | procedure are in the | | | | PDT | | results section. | + +--------+ + + + documented in this encounter Results MRSA NAAT (10/14/2012 10:27 AM PDT) + + | Specimen | + + | | + + + + + | Narrative | Performed At | + + + | [facility]) | EXTERNAL LAB | | Testing performed at [address];[place] [address] MRSA PCR | | | NEGATIVE Testing performed at | | | [address];[place] [address] | | + + + + +---------+ + + | Performing | Address | City/State/Zipcode | Phone Number | | Organization | | | | + +---------+ + + | EXTERNAL LAB | | | | + +---------+ + + ECG 12 lead (10/14/2012 9:57 AM PDT) + + + + + + | Component | Value | Ref Range | Performed | Pathologist | | | | | At | Signature | + + + + + + | DIAGNOSIS: | Normal sinus rhythmLow | | EXTERNAL | | | | voltage QRSInferior | | LAB | | | | infarct , age | | | | | | undeterminedAbnormal | | | | | | ECGNo previous ECGs | | | | | | availableConfirmed by | | | | | | AMADA SPARROW ([id number]) on | | | | | | 10/14/2012 10:24:51 AM | | | | + + + + + + + + | Specimen | + + | | + + + + + | Narrative | Performed At | + + + | Historically converted procedure from [facility] environment | EXTERNAL LAB | + + + + +---------+ + + | Performing | Address | City/State/Zipcode | Phone Number | | Organization | | | | + +---------+ + + | EXTERNAL LAB | | | | + +---------+ + + documented in this encounter Visit Diagnoses Not on filedocumented in this encounter"
--- OUTSIDE RECORDS SUMMARY | ~2019-06-30 | XMS | Encounter Summary ---
Demographics + + + | Address | [address] | | | [place] [address] | + + + | Home Phone | | + + + | Preferred Language | Unknown | + + + | Marital Status | | + + + | Rastafari Affiliation | 1041 | + + + [...] Team Providers + +------+ + | Care Dinkey Driver Name | Role | Phone | + +------+ + | Fabrice Hansen DO | PCP | | + +------+ + Encounter Details +--------+ + + + + | Date | Type | Department | Care Team | Description | +--------+ + + + + | 11/16/ | Orders Only | [facility] | Breann Maria PA | Gall stones, common | | 2019 | | and Pancreas GI | [address], [place] | bile duct; | | | | [address] | [address] [place] | 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 | | | | | fistula | | + +--------+ + + + documented in this encounter Results MRI Abdomen w wo Contrast MRCP (12/27/2018 [...] | | | | Signed by: Shanell Lopez Amit | | Sign Date/Time: 12/28/2018 8:46 AM [...] + | Gall stones, common bile duct Calculus of bile duct without mention of cholecystitis | | or obstruction | + + | Choledochoduodenal fistula Fistula of bile duct | + + documented in this encounter"
--- OUTSIDE RECORDS SUMMARY | ~2019-06-30 | XMS | Encounter Summary ---
Demographics + + + | Address | [address] | | | [place] [address] | + + + | Home Phone | | + + + | Preferred Language | Unknown | + + + | Marital Status | | + + + | Nondenominational Affiliation | 1041 | + + + [...] Team Providers + +------+ + | Care Marketing Traffic Manager Name | Role | Phone | [...] + +--------+ + + + + | Pending | | Radiology | Diagnoses | Rey, | [facility] | | Review | | | Calculus of | Meme A, | REGIONAL | | | | | bile duct | [employer] [address] | MEDICAL | | | | | with | [address] | CENTER [address] | | | | | cholangitis | [place], [place] | [address] | | | | | and | [address] | [place], [place] | | | | | obstruction, | Phone: | [address] | | | | | unspecified | [phone] | Phone: | | | | | cholangitis | Fax: | [phone] | | | | | acuity | [phone] | Fax: | | | | | Procedures | | [phone] | | | | | MRI Abdomen | | | | | | | w wo | | | | | | | Contrast | | | | | | | MRCP | | | + +--------+ + + + + Reason for Visit Diagnostic/Screening (Routine) + +--------+ + + + + | Status | Reason | Specialty | Diagnoses / | Referred By | Referred To | | | | | Procedures | Contact | Contact | + +--------+ + + + + | Pending | | Radiology | Diagnoses | Rey, | [facility] | | Review | | | Calculus of | Meme A, | REGIONAL | | | | | bile duct | [employer] [address] | MEDICAL | | | | | with | BLVD | [address] | | | | | cholangitis | [place], [place] | [address] | | | | | and | [address] | [place], [place] | | | | | obstruction, | Phone: | [address] | | | | | unspecified | [phone] | Phone: | | | | | cholangitis | Fax: | [phone] | | | | | acuity | [phone] | Fax: | | | | | Procedures | | [phone] | | | | | MRI Abdomen | | | | | | | w wo | | | | | | | Contrast | | | | | | | MRCP | | | + +--------+ + + + + Encounter Details +--------+ + + + + | Date | Type | Department | Care Team | Description | +--------+ + + + + | 03/15/ | Hospital | [facility] | Meme Le | Calculus of bile | | 2019 | Encounter | [facility] MRI [address] | A, [employer] [address] | duct with | | | | [address] | [place] [address] | cholangitis and | | | | [place], [place] | [phone] | obstruction, | | | | [address] | | unspecified | | | | [phone] | | cholangitis acuity | +--------+ + + + + Social [...] + + + +---------+ + + | multiple vitamins | Take 1 tablet by | | 0 | | | | w/minerals | mouth Daily. | | | | | | (OCUVITE-LUTEIN) | | | | | | | TABS | | | | | | + + + +---------+ + + | naproxen sodium | Take 220 mg by mouth | | 0 | | | | (ANAPROX) 220 MG | as needed. | | | | | | tablet | | | | | | + + + +---------+ + + | nitroglycerin | Place 0.4 mg under | | 0 | 12/08/ | | | (NITROSTAT) 0.4 mg | [...] TABLET BY | 90 | 0 | 03/09/19 | | | (SYNTHROID) 50 mcg | MOUTH ONE TIME DAILY | tablet | | 20 | 0 | | tablet | BEFORE BREAKFAST | [...] Description | +--------+---------+ + + + | 06/09/ | Office | Cardiology | Erin Limon | | | 2019 | Visit | | [address] | | | | | | [address] [place] | | | | | | [place] [address] | | | | | | [phone] | | | | | | | | +--------+---------+ + + + documented as of this encounter Procedures + +--------+ + + + | Procedure Name | Priori | Date/Time | Associated Diagnosis | Comments | | | ty | | | | + +--------+ + + + | MRI ABDOMEN W WO | Routin | 03/15/2019 | Calculus of bile | Results for this | | CONTRAST MRCP | e | 11:02 AM | duct with | procedure are in the | | | | PST | cholangitis and | results section. | | | | | obstruction, | | | | | | unspecified | | | | | | cholangitis acuity | | + +--------+ + + + documented in this encounter Results MRI Abdomen w wo Contrast MRCP (03/15/2019 11:02 AM PST) + + | Specimen | + + | | + + + + + | Impressions | Performed At | + + + | 1. Stable moderate segmental intrahepatic biliary ductal dilatation | [facility] | | with central stricture at the biliary confluence. Persistent | | | intrahepatic bile duct stones in the central left bile ducts. The | | | common bile duct is difficult to evaluate given degree of pneumobilia, | | | however measures approximately 10 mm. Otherwise limited evaluation | | | for choledocholithiasis. 2. No biliary wall thickening or | | | enhancement to suggest acute cholangitis. No discrete hepatic mass | | | is seen to suggest cholangiocarcinoma. 3. Cholecystectomy. 4. | | | Pancreas divisum. 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 These are | | | unchanged from MRI 11/02/2018. * Pancreatic cyst follow up | | | recommendation: Pancreatic IPMN cysts between 1.5 and 1.9 cm | | | without high risk or worrisome features are rarely clinically | | | significant. Recommend non-urgent pancreatic specialist referral | | | and MRI with and without contrast with MRCP annually for 5 years, | | | then every 2 years for a total of 9 years after initial detection. | | | No further imaging if cyst remains less than 1.9 cm or when | | | appropriate based on overall health condition and potential surgical | | | candidacy. (Based on [employer] and [place] | | | Guidelines, 2017) Signed by: Stanislav Wolfe Tyson Sign | | | Date/Time: 03/16/2019 8:51 AM | | + + + + + + | Narrative | Performed At | + + + | MR ABDOMEN WITHOUT AND WITH IV CONTRAST CLINICAL INFORMATION: | [facility] | | Choledocolithiasis COMPARISON: [place] ERCP BILIARY ONLY | | | (12/31/2018); MRI ABDOMEN W WO CONTRAST MRCP (12/27/2018); MRI | | | ABDOMEN WO CONTRAST MRCP (12/04/2018); MRI ABDOMEN W WO CONTRAST MRCP | | | (11/02/2018); PROCEDURE: MRI of the abdomen performed in axial | | | and coronal planes with and without IV contrast, including dedicated | | | MRCP sequences. 3D was not performed on an independent | | | workstation. Contrast: 6ml GADAVIST was administered | | | intravenously. FINDINGS: MRCP: The gallbladder is surgically | | | absent. Moderate intrahepatic and extrahepatic biliary ductal | | | dilatation is unchanged with more focal segmental biliary ductal | | | dilatation involving the left hepatic lobe. Extensive pneumobilia in | | | the common bile duct and anterior intrahepatic ducts. Persistent | | | stricture at the central biliary confluence is similar to prior with | | | multiple filling defects within the central left hepatic ducts, | | | unchanged measuring up to 6 mm (image 13, series 6). Limited | | | evaluation of the common bile duct given degree of pneumobilia. The | | | common bile duct measures up to 10 mm (image 10, series 12). Suspect | | | stricture of the distal common bile duct. No definite | | | choledocholithiasis. Pancreas divisum. MR Abdomen: Lung Bases: | | | No significant pulmonary abnormality. No pleural effusion. Status | | | post median sternotomy. Liver: Mild peripheral wedge-shaped areas of | | | arterial hyperenhancement in the anterior left hepatic lobe and | | | posterior right hepatic lobe at site of segmental biliary ductal | | | dilatation suggests developing fibrosis. No discrete hepatic mass | | | is seen. No biliary thickening or enhancement. Pancreas, Adrenal | | | glands and Spleen: Stable 5 mm cystic lesion in the posterior | | | pancreatic body which communicates with the main pancreatic duct most | | | consistent with side branch duct type IPMN. The main duct is | | | normal caliber. Additional clustered cystic lesion in the pancreatic | | | uncinate measures 16 mm (image 8, series 12) which likely | | | communicates with the main pancreatic duct. No abnormal parenchymal | | | enhancement. The adrenals and spleen are unremarkable. Kidneys: No | | | hydronephrosis or solid renal mass. Stable small renal cysts. | | | Peritoneum and Retroperitoneum: No free air or peritoneal mass. | | | Vessels: No significant abnormality in the aorta, its proximal | | | branches or the iliac arteries. No significant abnormality in the | | | portal veins, mesenteric veins or systemic veins. Lymph Nodes: No | | | adenopathy. Bones: Marrow signal. | | + + + + + | Procedure Note | + + | Dex, Rad Results In 03/16/2019 8:55 AM PST | | MR ABDOMEN WITHOUT AND WITH IV CONTRAST | | | | CLINICAL INFORMATION: | | Choledocolithiasis | | | | COMPARISON: | | [place] ERCP BILIARY ONLY (12/31/2018); MRI ABDOMEN W WO CONTRAST MRCP | | (12/27/2018); MRI ABDOMEN WO CONTRAST MRCP (12/04/2018); MRI ABDOMEN W | | WO CONTRAST MRCP (11/02/2018); | | | [...] | MRCP: The gallbladder is surgically absent. Moderate intrahepatic and | | extrahepatic biliary ductal dilatation is unchanged with more focal | | segmental biliary ductal dilatation involving the left hepatic lobe. | | Extensive pneumobilia in the common bile duct and anterior intrahepatic | | ducts. Persistent stricture at the central biliary confluence is | | similar to prior with multiple filling defects within the central left | | hepatic ducts, unchanged measuring up to 6 mm (image 13, series 6). | | Limited evaluation of the common bile duct given degree of pneumobilia. | | The common bile duct measures up to 10 mm (image 10, series 12). | | Suspect stricture of the distal common bile duct. No definite | | choledocholithiasis. Pancreas divisum. | | | | MR Abdomen: | | Lung Bases: No significant pulmonary abnormality. No pleural effusion. | | Status post median sternotomy. | | Liver: Mild peripheral wedge-shaped areas of arterial hyperenhancement | | in the anterior left hepatic lobe and posterior right hepatic lobe at | | site of segmental biliary ductal dilatation suggests developing | | fibrosis. No discrete hepatic mass is seen. No biliary thickening or | | enhancement. 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 The main duct is | | normal caliber. Additional clustered cystic lesion in the pancreatic | | uncinate measures 16 mm (image 8, series 12) which likely communicates | | with the main pancreatic duct. No abnormal parenchymal enhancement. | | The adrenals and spleen are unremarkable. | | Kidneys: No hydronephrosis or solid renal mass. Stable small renal | | cysts. | | Peritoneum and Retroperitoneum: No free air or peritoneal mass. | | Vessels: No significant abnormality in the aorta, its proximal branches | | or the iliac arteries. No significant abnormality in the portal veins, | | mesenteric veins or systemic veins. | | Lymph Nodes: No adenopathy. | | Bones: Marrow signal. | | | | IMPRESSION: | | 1. Stable moderate segmental intrahepatic biliary ductal dilatation | | with central stricture at the biliary confluence. Persistent | | intrahepatic bile duct stones in the central left bile ducts. The | | common bile duct is difficult to evaluate given degree of pneumobilia, | | however measures approximately 10 mm. Otherwise limited evaluation for | | choledocholithiasis. | | 2. No biliary wall thickening or enhancement to suggest acute | | cholangitis. No discrete hepatic mass is seen to suggest | | cholangiocarcinoma. | | 3. Cholecystectomy. | | 4. Pancreas divisum. 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 These are unchanged | | from MRI 11/02/2018. | | | | * Pancreatic cyst follow up recommendation: Pancreatic IPMN cysts | | between 1.5 and 1.9 cm without high risk or worrisome features are | | rarely clinically significant. Recommend non-urgent pancreatic | | specialist referral and MRI with and without contrast with MRCP | | annually for 5 years, then every 2 years for a total of 9 years after | | initial detection. No further imaging if cyst remains less than 1.9 cm | | or when appropriate based on overall health condition and potential | | surgical candidacy. (Based on [employer] and [place] | | Guidelines, 2017) | | | | | | | | Signed by: Stanislav Wolfe Tyson | | Sign Date/Time: 03/16/2019 8:51 AM | + + + +---------+ + [...] | gadobutrol (GADAVIST) injection | Given | 03/15/19 | 6 mLs | | | | 6 mL 6 mL, Intravenous, ONCE | | 20 11:03 | | | | | PRN, Other, Starting Thu03/15/19 | | AM PST | | | | | at 1027, For 1 dose, MRI | | | | | | + +--------+ +-------+------+------+ +---+---+ | | | +---+---+ + +-------+ +--------+---+---+ | sodium chloride (PF) 0.9% | Given | 03/15/19 | 20 mLs | | | | injection flush 20 mL 20 mL, | | 20 11:03 | | | | | Intracatheter, ONCE PRN, Line | | AM PST | | | | | Care, Starting Thu03/15/19 at | | | | | | | 1027, For 1 dose, MRI | | | | | | + +-------+ +--------+---+---+ +---+---+ | | | +---+---+ documented in this encounter"
--- OUTSIDE RECORDS SUMMARY | ~2019-06-30 | XMS | Encounter Summary ---
Demographics + + + | Address | [address] | | | [place] [address] | + + + | Home Phone | | + + + | Preferred Language | Unknown | + + + | Marital Status | | + + + | Sabianist Affiliation | 1041 | + + + | Race | Unknown | + + + | Ethnic Group | Unknown | + + + Author + + + | Author | [facility] | | | and Luisana | + + + | Organization | [facility] | | [...] Team Providers + +------+ + | Care Founder Chairman And Chief Creative Officer Name | Role | Phone | + +------+ + | Fabrice aHnsen DO | PCP | | + +------+ [...] | common bile | [address] [place] | [place], [place] | | | | | duct | [address] | [address] | | | | | Choledochodu | [place], [place] | Phone: | | | | | odenal | [address] | [phone] | | | | | fistula | Phone: | Fax: | | | | | Procedures | [phone] | [phone] | | | | | MRI Abdomen | Fax: | | | | | | w wo | [phone] | | | | | | Contrast | | | | | | | MRCP | | | +--------+--------+ + + + + Encounter Details +--------+ + + + + | Date | Type | Department | Care Team | Description | +--------+ + + + + | 11/12/ | Orders Only | [facility] | Bacilio Thompson MD | Gall stones, common | | 2019 | | and Pancreas GI | [address] [place] | bile duct (Primary | | | | [address] | [address] [place], [place] | Dx); | | | | [address] | [address] | Choledochoduodenal | | | | [place] | | fistula | | | | [address] | | | | | | [phone] | | | +--------+ + + + [...] [address] | | | | | | [place] [address] | | | | | | [phone] | | | | | | | [...] | | | Absolute | performed at [facility];[address] | [address] | LAB | | | | [address] | | [facility] | | | | [address];[place] [address] | | LABORATORY | | + + + + + + + + | Specimen | + + | Blood | + + + + + + + | Performing | Address | City/State/Zipcode | Phone Number | | Organization | | | | + + + + + | REFERENCE LAB | [address] | [place] | [phone] | | [facility] | [address] | [address] | | | LABORATORY | | | | + + + + + | REFERENCE LAB | [address] | [place] | | | [facility] | [address] | [address] | | | LABORATORY | | | [...]
--- OUTSIDE RECORDS SUMMARY | ~2019-06-30 | XMS | Encounter Summary ---
Demographics + + + | Address | [address] | | | [place] [address] | + + + | Home Phone | | + + + | Preferred Language | Unknown | + + + | Marital Status | | + + + | Sikhism Affiliation | 1041 | + + + | Race | Unknown | + + + | Ethnic Group | Unknown | + + + Author + + + | Author | [facility] | | | and Luisana | + + + | Organization | [facility] | | | and [...] Team Providers + +------+ + | Care Buffing Line Set Up Worker Name | Role | Phone | + [...] | | | | [place] | Recycling Assistant | unspecified type | | | | [address] | | | | | | [phone] | | | +--------+ + + + [...] [place] | | | | | | [place] [address] | | | | | | [phone] | | | | | | | [...] REFERENCE | | | | performed at [facility];[address] | | LAB | | | | [facility] | | [facility] | | | | [place] [address] | | LABORATORY | | + + + + + + + + | Specimen | + + | Blood | + + + + + + + | Performing | Address | City/State/Zipcode | Phone Number | | Organization | | | | + + + + + | REFERENCE LAB | [address] | [place], [place] | [phone] | | [facility] | [address] | [address] | | | LABORATORY | | | | + + + + + | REFERENCE LAB | [address] | [place], [place] | | | [facility] | [address] | [address] | | | LABORATORY | | | [...] REFERENCE | | | | performed at [facility];[address] | | LAB | | | | [place] | | [facility] | | | | Bl[address];[place] [address] | | LABORATORY | | + + + + + + + + | Specimen | + + | Blood | + + + + + + + | Performing | Address | City/State/Zipcode | Phone Number | | Organization | | | | + + + + + | REFERENCE LAB | [address] [place] [address] | [place] | [phone] | | [facility] | Bl[address] | [address] | | | LABORATORY | | | | + + + + + | REFERENCE LAB | [address] [place] [address] | [place], [place] | | | [facility] | Bl[address] | [address] | | | LABORATORY | | | [...] | | | | performed at [facility];[address] | | | | | | [facility] | | | | | | Blvd;[place] [address] | | | | | | | | | | + + + + + + + + | Specimen | + + | Blood | + + + + + + + | Performing | Address | City/State/Zipcode | Phone Number | | Organization | | | | + + + + + | REFERENCE LAB | [address] | [place] | [phone] | | [facility] | Bl[address] | [address] | | | LABORATORY | | | | + + + + + | REFERENCE LAB | [address] | [place] | | | [facility] | Bl[address] | [address] | | | LABORATORY | | | | + + + + + documented in this encounter Visit Diagnoses + + | Diagnosis | + + | Epigastric pain Abdominal pain, epigastric | + + | Dysphagia, unspecified type | + + documented in this encounter"
--- OUTSIDE RECORDS SUMMARY | ~2019-06-30 | XMS | Encounter Summary ---
Demographics + + + | Address | [address] | | | [place] [address] | + + + | Home Phone [...] Team Providers + +------+ + | Care Sex Crimes Detective Name | Role | Phone | + [...] | | | | and | | [address] Phone: | | | | | obstruction, | | [phone] | | | | | unspecified | | Fax: | | | | | cholangitis | | [phone] | | | | | acuity | [...] | | | | | | | LA ERCP DX | | | | | | | COLLECTION | | | | | | | SPECIMEN | | | | | | | BRUSHING/WAS | | | | | | | THALIA LA | | | | | | | [...] +--------+--------+ + + + + Encounter Details +--------+---------+ + + + | Date | Type | Department | Care Team | Description | +--------+---------+ + + + | 12/31/ | Surgery | [facility] | Jason Cadena MD | ENDOSCOPIC | | 2019 | | [facility] | [address] [place] | RETROGRADE | | | | INTRA OP [address] | [address] [place], [place] | CHOLANGIOPANREATOG | | | | Ave [place], [place] | [address] | | | | | [address] | | | | | | [phone] | | | +--------+---------+ + + + [...] Ho MD - 01/01/2019 12:16 PM PST [facility] Patient: Sharon Way Date of : 1945 PCP: Fabrice Hansen DO Admit Date: 12/31/2018 Discharge Date: 01/01/2019 Date of Service: 01/01/2019 Issues Requiring Follow Up after Discharge: Needs follow up with - hepatobiliary surgeon Follow Up Appointments: Fabrice Hansen DO [address] [facility] [phone] Call As needed Tom Limon MD [address], [place] [address] [facility] [phone] Schedule an appointment as soon as possible for a visit in 2 weeks Discharge Disposition: Home Consultants This Admission: [facility] Course: Sharon Way is a 73 [...] this chart may have been created with [employer] voice recognition software. Occasi onal wrong-word or [...] not hear from them phoebe holder call [phone]. Return to ER if symtopms get worse. [...] as of this encounter Progress Notes Cecile aVrgas RN - 12/31/2018 11:17 PM PSTA&OX4, admitted due for ERCP with stent removal. Here for pain control. Tolerating clear liquid diet. PRN dilaudid 0.25mg X1 for epigastric pain. Denies nausea. RT PIV, SL. Up with SBA with cane. VSS. Will continue to monitor.Electr onically signed by Cecile Vargas V RN at 12/31/2018 11:19 PM Belinda Best, [...] at bedside. Now s tracee at the [facility]. Electronically signed by: Belinda Galan, Personal Banker 12/31 6:47 PM Sara Lloyd RN - 12/31/2018 4:45 PM PSTAdmission screen completed by Brigitte MORIN. Report handoff given to MIKEL Bates. Brigitte MORIN has completed admission flow sheet except for [...] MÉNDEZ | | | | | | [place] [address] | | | | | | [phone] | | | | | | | [...] | + +--------+ + + + | LA ERCP DX | Routin | 12/31/2018 | [...] | | LABORATORY | | | | [facility] [address], | | [place] | | | | [place] [address] | | | | + + + + + + + + | Specimen | + + | Blood specimen | | (specimen) | + + + + + + + | Performing | Address | City/State/Zipcode | Phone Number | | Organization | | | | + + + + + | [facility] | [address] | [place] [address] | | | [facility] | | | | | HAZEL [...] ENCE | | | Immature | by [facility] [address], | K/uL | SACRED | | | Granulocyte | [place] [address] | | HEART | | | s |Performed by [facility] [address], [place] [address] | | MEDICA L | | | [...] + + | [facility] | [address] | [place] [address] | | | [facility] | | | | | LABORATORY [...] Performed At | + + + | [place] | [place] | | [facility] | PROVATION | | [facility] | | | Patient Name: Sharon Way | | | Procedure Date: 12/31/2018 8:54 AMMRN: [id number] | | | of : 1945 | [...] | | | | | Findings: A scout executive film of the abdomen was obtained. The [...] the | | | branch. Then, a Posterous Spyglass DS system was used to | [...] | | | AMNumber of Addenda: 0 [facility] | | |This report has been signed electronically. | | | | | |Note Initiated On: 12/31/2018 8:54 AM | | |Number of Addenda: 0 | | | | | | [facility] | | + + + + +---------+ + + | Performing | Address | City/State/Pres[facility] Hospital[facility] | Phone Number | | Organization [...] | [facility] | | | POC | [facility] [address], | | SACRED | | | | [place] [address] | | HEART | | | |Performed by [facility] [address], [place] [address] | | MEDICAL | | | | [...] | + + + + + | [facility] | [address] | [place] [address] | | | [facility] | | | | | HAZEL [...] | | | BREAKFAST, First dose on Thu | | AM PST | | | [...] | | | | | pain, Starting Thu12/31/18 at | | | | | | [...] | | | | | | longer, okngdk-soy-somew use of | | | | | [...] | | | | | | use [place] 10/325 if ordered. If | | | [...] +--------+---+---+ | levothyroxine (SYNTHROID) | Given | 01/02/20 | 50 mcg | | | | [...]
--- OUTSIDE RECORDS SUMMARY | ~2019-06-30 | XMS | Encounter Summary ---
Demographics + + + | Address | [address] | | | [place] [address] | + + + | Home Phone | | + + + | Preferred Language | Unknown | + + + | Marital Status | | + + + | Nondenominational Affiliation | 1041 | + + + | Race | Unknown | + + + | Ethnic Group | Unknown | + + + Author + + + | Author | [facility] | | | and [place] | + + + | Organization | [facility] | | | and [...] Team Providers + +------+ + | Care Event Promotions Coordinator Name | Role | Phone | + +------+ + PCP | Unavailable | + +------+ + Encounter Details +--------+ + + + + | Date | Type | Department | Care Team | Description | +--------+ + + + + | 07/14/ | Hospital | [facility] | Marshall Gutierrez Anastasia, | CORONARY ATHEROSCLER | | 2001 - | Encounter | [facility] | MD [address] | UNSPEC VESSEL | | | | CLINICAL DECISION | [place] [address] | | | 07/15/ | | [address] [facility] | [phone] | | | 2001 | | [place], [place] | | | | | | [address] | | | | | | [phone] | | | +--------+ + + + [...] MÉNDEZ | | | | | | [place] [address] | | | | | | [phone] | | | | | | | | +--------+---------+ + + + documented as of this encounter Visit Diagnoses + + | Diagnosis | + + | Coronary atherosclerosis of unspecified type of vessel, nondalton or graft | + + documented in this encounter"
--- OUTSIDE RECORDS SUMMARY | ~2019-06-30 | XMS | Encounter Summary ---
Demographics + + + | Address | [address] | | | [place] [address] | + + + | Home Phone [...] Team Providers + +------+ + | Care Business Center Representative Name | Role | Phone | [...] Description | +--------+--------+ + + + | 03/09/ | Refill | [facility] | Fabrice Hansen | Medication Refill | | 2020 | | [facility] | DO [address] | | | | | [address] | [facility] | | | | | [address] [facility] [address] | [address] [place], [place] | | | | | [place], [place] | [id number] | | | | | [address] | | | | | | [phone] | | | +--------+--------+ + + + [...] | | | | | [place] [address] | | | | | | [phone] | | | | | | | | +--------+---------+ + + + documented as of this encounter Visit Diagnoses Not on filedocumented in this encounter"
--- OUTSIDE RECORDS SUMMARY | ~2019-06-30 | XMS | Encounter Summary ---
Demographics + + + | Address | [address] | | | [place] [address] | + + + | Home Phone | | + + + | Preferred Language | Unknown | + + + | Marital Status | | + + + | Gnosticism Affiliation | 1041 | + + + [...] Team Providers + +------+ + | Care Bulldozer Engineer Name | Role | Phone | + +------+ + | Fabrice Hansen DO | PCP | | + +------+ + Encounter Details +--------+ + + + + | Date | Type | Department | Care Team | Description | +--------+ + + + + | 12/28/ | Orders Only | [facility] | Prakash Carreon, | Atherosclerotic | | 2019 | | [address] | Substitute Teacher | heart disease of | | | | [place], [place] | | ak chin coronary | | | | [address] | | artery with angina | | | | [phone] | | pectoris (HCC); | | | | | | Coronary angioplasty | | | | | | status; Old | | | | | | myocardial | | | | | | infarction; Presence | | | | | | of aortocoronary | | | | | | bypass graft; Mixed | | | | | | hyperlipidemia; Gall | | | | | | stones, common bile | | | | | | duct; | | | | | | Choledochoduodenal | | | | | | fistula; Other | | | | | | specified | | | | | | hypothyroidism | +--------+ + + + + Social [...] MÉNDEZ | | | | | | [place] [address] | | | | | | [phone] | | | | | | | | +--------+---------+ + + + documented as of this encounter Procedures + +--------+ + + + | Procedure Name | Priori | Date/Time | Associated Diagnosis | Comments | | | ty | | | | + +--------+ + + + | LIPID PANEL | Routin | 12/28/2018 | Mixed | Results for this | | | e | 9:33 AM | hyperlipidemia | procedure are in the | | | | PST | | results section. | + +--------+ + + + | TSH, REFLEX FREE T4 | Routin | 12/28/2018 | Other specified | Results for this | | | e | 9:33 AM | hypothyroidism | procedure are in the | | | | PST | | results section. | + +--------+ + + + | CBC WITH | Routin | 12/28/2018 | Gall stones, | Results for this | | DIFFERENTIAL | e | 9:33 AM | common bile duct | procedure are in the | | | | PST | Choledochoduodenal | results section. | | | | | fistula | | + +--------+ + + + | COMPREHENSIVE | Routin | 12/28/2018 | Atherosclerotic | Results for this | | METABOLIC PANEL | e | 9:33 AM | heart disease of | procedure are in the | | | | PST | ak chin coronary | results section. | | | | | artery with [...] | | | hyperlipidemia | | + +--------+ + + + [...] REFERENCE | | | | performed at [facility];[address] | uIU/mL | LAB | | | | [place] | | [facility] | | | | [address];[place] [address] | | LABORATORY | | + + + + + + + + | Specimen | + + | Blood | + + + + + + + | Performing | Address | City/State/Zipcode | Phone Number | | Organization | | | | + + + + + | REFERENCE LAB | [address] [place] [address] | [place], [place] | [phone] | | [facility] | [address] | [address] | | | LABORATORY | | | | + + + + + | REFERENCE LAB | [address] [place] [address] | [place], [place] | | | [facility] | [address] | [address] | | | LABORATORY | | | | + + + + + CBC with Differential (12/28/2018 9:33 AM PST) [...] | | | Absolute | performed at [facility];[address] | K/uL | LAB | | | | [place] | | [facility] | | | | [address];[place] [address] | | LABORATORY | | + + + + + + + + | Specimen | + + | Blood | + + + + + + + | Performing | Address | City/State/Zipcode | Phone Number | | Organization | | | | + + + + + | REFERENCE LAB | [address] [place] [address] | [place] | [phone] | | [facility] | [address] | [address] | | | LABORATORY | | | | + + + + + | REFERENCE LAB | [address] [place] [address] | [place] | | | [facility] | [address] | [address] | | | LABORATORY | | | [...] | | | Calculated | performed at [facility];[address] | | LAB | | | | [place] | | [facility] | | | | [address];[place] [address] | | LABORATORY | | + + + + + + + + | Specimen | + + | Blood | + + + + + + + | Performing | Address | City/State/Zipcode | Phone Number | | Organization | | | | + + + + + | REFERENCE LAB | [address] [facility] | [place] | [phone] | | [facility] | [address] | [address] | | | LABORATORY | | | | + + + + + | REFERENCE LAB | [address] [facility] | [place] | | | [facility] | [address] | [address] | | | LABORATORY | | | | + + + + + Comprehensive Metabolic Panel (12/28/2018 9:33 AM PST) [...] | | | | | performed at [facility];[address] | | | | | | [facility] | | | | | | [facility];[place] [address] | | | | | | | | | | + + + + + + + + | Specimen | + + | Blood | + + + + + + + | Performing | Address | City/State/Zipcode | Phone Number | | Organization | | | | + + + + + | REFERENCE LAB | [address] [place] [address] | [place], [place] | [phone] | | [email or web address] | [address] | [address] | | | LABORATORY | | | | + + + + + | REFERENCE LAB | [address] [place] [address] | [place], [place] | | | [email or web address] | Blvd. 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
--- OUTSIDE RECORDS SUMMARY | ~2019-06-30 | XMS | Encounter Summary ---
Demographics + + + | Address | [address] | | | [place] [address] | + + + | Home Phone | | + + + | Preferred Language | Unknown | + + + | Marital Status | | + + + | Christian Affiliation | 1041 | + + + | Race | Unknown | + + + | Ethnic Group | Unknown | + + + Author + + + | Author | [facility] | | | and Luisana | + + + | Organization | [facility] | | [...] Team Providers + +------+ + | Care Launch Steward Name | Role | Phone | + [...] 2019 | | [address] | [place] | heart disease of | | | | [place], [place] | | [place] coronary | | | | [address] | | artery with angina | | | | [phone] | | pectoris (HCC); | | | [...] MÉNDEZ | | | | | | [place] [address] | | | | | | [phone] | | | | | | | [...] the | | | | PST | [place] coronary | results section. | | | [...] REFERENCE | | | | performed at [facility];[address] | uIU/mL | LAB | | | | [place] | | [facility] | | | | [place] [address] | | LABORATORY | | + + + + + + + + | Specimen | + + | Blood | + + + + + + + | Performing | Address | City/State/Zipcode | Phone Number | | Organization | | | | + + + + + | REFERENCE LAB | [address] [place] [address] | [place], [place] | [phone] | | [facility] | [address] | [address] | | | LABORATORY | | | | + + + + + | REFERENCE LAB | [address] [place] [address] | [place], [place] | | | [facility] | Blvd[address] | [address] | | | LABORATORY | | | [...] | | | Absolute | performed at [facility];[address] | K/uL | LAB | | | | [place] | | [facility] | | | | [place] [address] | | LABORATORY | | + + + + + + + + | Specimen | + + | Blood | + + + + + + + | Performing | Address | City/State/Zipcode | Phone Number | | Organization | | | | + + + + + | REFERENCE LAB | [address] [place] [address] | [place] | [phone] | | [facility] | [address] | [address] | | | LABORATORY | | | | + + + + + | REFERENCE LAB | [address] [place] [address] | [place] | | | [facility] | Blvd[address] | [address] | | | LABORATORY | | | [...] | | | Calculated | performed at [facility];[address] | | LAB | | | | [place] | | [facility] | | | | Bl[address];[place] [address] | | LABORATORY | | + + + + + + + + | Specimen | + + | Blood | + + + + + + + | Performing | Address | City/State/Zipcode | Phone Number | | Organization | | | | + + + + + | REFERENCE LAB | [address] [facility] | [place] | [phone] | | [facility] | [address] | [address] | | | LABORATORY | | | | + + + + + | REFERENCE LAB | [address] [facility] | [place] | | | [facility] | [address] | [address] | | | LABORATORY | | | [...] | | | | | performed at [facility];[address] | | | | | | [facility] | | | | | | [facility];[place] [address] | | | | | | | | | | + + + + + + + + | Specimen | + + | Blood | + + + + + + + | Performing | Address | City/State/Zipcode | Phone Number | | Organization | | | | + + + + + | REFERENCE LAB | [address] [place] [address] | [place], [place] | [phone] | | [facility] | [address] | [address] | | | LABORATORY | | | | + + + + + | REFERENCE LAB | [address] [place] [address] | [place] | | | [facility] | Blvd. | [address] | | | LABORATORY | | | | + + + + + documented in this encounter Visit Diagnoses + + | Diagnosis | + + | Atherosclerotic heart disease of [place] coronary artery with angina pectoris (HCC) | | Coronary atherosclerosis of [place] coronary artery | + + | Coronary [...]
--- OUTSIDE RECORDS SUMMARY | ~2019-06-30 | XMS | Encounter Summary ---
Demographics + + + | Address | [address] | | | [place] [address] | + + + | Home Phone | | + + + | Preferred Language | Unknown | + + + | Marital Status | | + + + | Jehovah'S Witness Affiliation | 1041 | + + + | Race | Unknown | + + + | Ethnic Group | Unknown | + + + Author + + + | Author | [facility] | | | and Luisana | + + + | Organization | [facility] | | | [...] Team Providers + +------+ + | Care Electrotype Molder Name | Role | Phone | + +------+ + | Fabrice Hansen DO | PCP | | + +------+ + Encounter Details +--------+ + + + + | Date | Type | Department | Care Team | Description | +--------+ + + + + | 01/09/ | Orders Only | [facility] | Tom Limon MD | Hepatic lithiasis | | 2019 | | and Pancreas GI | [address] [place] | (Primary Dx); Acute | | | | South [address] | [address] [place] | abdomen | | | | [address] | [address] | | | | | [place], [place] | | | | | | [address] | | | | | | [phone] | | | +--------+ + + + [...] | | | | | [place] [address] | | | | | | [phone] | | | | | | | [...] | | | performed at [facility];[address] | | | | | | [address] | | | | | | Blvd;[place] [address] | | | | | | | | | | + + + + + + + + | Specimen | + + | Blood | + + + + + + + | Performing | Address | City/State/Zipcode | Phone Number | | Organization | | | | + + + + + | REFERENCE LAB | [address] [place] [address] | [place] | [phone] | | [facility] | Bl[address] | [address] | | | LABORATORY | | | | + + + + + | REFERENCE LAB | [address] [place] [address] | [place] | | | [facility] | Blvd[address] | [address] | | | LABORATORY | | | [...] | | | performed at [facility];[address] | | | | | | [facility] | | | | | | Blvd;[place] [address] | | | | | | | | | | + + + + + + + + | Specimen | + + | Blood | + + + + + + + | Performing | Address | City/State/Zipcode | Phone Number | | Organization | | | | + + + + + | REFERENCE LAB | [address] [facility] | [place] | [phone] | | [facility] | [address] | [address] | | | LABORATORY | | | | + + + + + | REFERENCE LAB | [address] [facility] | [place] | | | [facility] | [address] | [address] | | | LABORATORY | | | [...] | | | performed at [facility];[address] | | LAB | | | | [place] | | [facility] | | | | Bl[address];[place] [address] | | LABORATORY | | + + + + + + + + | Specimen | + + | Blood | + + + + + + + | Performing | Address | City/State/Zipcode | Phone Number | | Organization | | | | + + + + + | REFERENCE LAB | [address] | [place] | [phone] | | [facility] | [address] | [address] | | | LABORATORY | | | | + + + + + | REFERENCE LAB | [address] | [place] | | | [facility] | [place] | [address] | | | LABORATORY | | | [...]
--- OUTSIDE RECORDS SUMMARY | ~2019-06-30 | XMS | Clinical Summary ---
Demographics + + + | Address | [address] | | | [place] [address] | + + + | Home Phone | | + + + | Preferred Language | Unknown | + + + | Marital Status | | + + + | Hoahaoism Affiliation | Unknown | + + + | Race | Unknown | + + + | Ethnic Group | Unknown | + + + Author + + + | Author | [facility] (Historical as of | | | 09-25-18) | + + + | Organization | [facility] (Historical as of | | | 09-25-18) [...] Team Providers + +------+ + | Care Mixer Dry Food Products Name | Role | Phone | + [...] | | | | | | involving ute mountain | | | | | | | | coronary artery of | | | | | | | | ute mountain heart with | | | | | | | | angina pectoris | | | | | | | | ([facility]), History of | | | | | [...] Overview: Added automatically from request for surgery [id number] | + + + + + | Screening for colorectal cancer | 06/16/2017 | + + + + + | Overview: Added automatically from request for surgery [id number] | + + + + + | Change in bowel movement | 06/16/2017 | + + + + + | Overview: Added automatically from request for surgery [id number] | + + + + + | [...] | + + + | History of [place] | 10/18/2012 | + + + | [...] +------+-------+ + | MEDICARE | MEDICA | [id number] | | | [address] | | | RE | | | | [place] [address] | | | IP-OP | | | | | + +--------+ +------+-------+ + | UNITED HEALTHCARE | UNITED | [id number] | | | | | | | [...] | [place] | | | [address] | [address] | + +--------+ +--------+ + +
--- OUTSIDE RECORDS SUMMARY | ~2019-06-30 | XMS | Encounter Summary ---
Demographics + + + | Address | [address] | | | [place] [address] | + + + | Home Phone | | + + + | Preferred Language | Unknown | + + + | Marital Status | | + + + | Hoahaoism Affiliation | 1041 | + + + | Race | Unknown | + + + | Ethnic Group | Unknown | + + + Author + + + | Author | [facility] | | | and Luisana | + + + | Organization | [facility] | | | [...] Team Providers + +------+ + | Care Chief Revenue Officer Name | Role | Phone | [...] + + | 03/19/ | Refill | [facility] | Fabrice Hansen | Medication Refill | | 2020 | | [facility] | DO [address] | | | | | [facility] | [facility] | | | | | [address] [facility] [address] | [address] [place], [place] | | | | | [place], [place] | [id number] | | | | | [address] | | | | | | [phone] | | | +--------+--------+ + + + [...] | | | | | [place] [address] | | | | | | [phone] | | | | | | | | +--------+---------+ + + + documented as of this encounter Visit Diagnoses Not on filedocumented in this encounter"
--- OUTSIDE RECORDS SUMMARY | ~2019-06-30 | XMS | Encounter Summary ---
Demographics + + + | Address | [address] | | | [place] [address] | + + + | Home Phone [...] | | + + +---------+ + | Ceicle Lemus | ECON | Unknown | | + + +---------+ + Care Team Providers + +------+ + | Care Corporate Associate Attorney Name | Role | Phone | + +------+ + | Fabrice Hansen DO | PCP | | + +------+ + Encounter Details +--------+ + + + + | Date | Type | Department | Care Team | Description | +--------+ + + + + | 02/15/ | Orders Only | [facility] | Marshall Gutierrez, | | | 2015 | | CARDIOLOGY SACHIN | [address] | | | | | [address] | [place] [address] | | | | | [facility] | [phone] | | | | | [address] | | | | | | [phone] | | | +--------+ + + + [...] MÉNDEZ | | | | | | [place] [address] | | | | | | [phone] | | | | | | | [...] MV A Zen: 0.70 m/s MV Dec Garrett: | | | 2.68 m/s2 MV DecT: [...] | 19.78 mmHg TR Vmax: 2.22 m/s Manager Baby: JOSY Authenticated | | | by: Marshall Gutierrez MD, FACC, FACP, FASNM Report Date/Time: | | | 02-19-2015 13:07:05 | | + + + + + | Procedure Note | + + | Jamie Kowalski Conversion - 09/30/2018 8:30 PM PDT Patient Name: Kailash LEMUS of | | : 1945 Performing Physician: Marshall Gutierrez MD, [facility], | | FACP, | | [...] cmLVPWd: 0.71 cmLVOT Area: | | 4.11 [id number] Diam: 2.28 cm%FS: 23.11 %EF(Teich): 45.92 %ESV(Teich): [...] | Index (A-L): 27.48 ml/m2LAAs A2C: 14.95 [id number] A-L A2C: 41.36 mlLALs A2C: 4.58 | | cmLAAs A4C: 16.21 [id number] A-L A4C: 49.75 mlLALs A4C: 4.48 cmAo Diam: 3.05 cmLA | | Diam: 3.08 cmLA/Ao: 1.01AV maxP.05 mmHgAV meanP.82 mmHgAV Vmax: 1.41 | | m/Yamila Vmean: 0.91 m/Yamila VTI: 27.43 cmAVA Vmax: 2.60 cm2AVA (VTI): 2.72 [id number] | | maxP.22 mmHgLVOT meanP.64 mmHgLVSI Dopp: 44.72 ml/m2LVSV Dopp: 74.69 | | mlLVOT Vmax: 0.89 m/sLVOT Vmean: 0.58 m/sLVOT VTI: 18.15 cmIVRT: 117.64 msMV A | | Zen: 0.70 m/sMV Dec Garrett: 2.68 m/s2MV DecT: 211.45 msMV E Zen: 0.56 m/sMV E/A | | Ratio: 0.80MV PHT: 61.32 msMVA By PHT: 3.58 uc3Fctdls e': 0.04 m/sSeptal E/e': | | 11.65Lateral e': 0.08 m/sLateral E/e': 7.06RAP: 5 mmHgRVSP: 24.78 mmHgTR maxPG: | | 19.78 mmHgTR Vmax: 2.22 m/s Manager Baby: DHAuthenticated by: Marshall Gutierrez MD, | | [...] A Zen: 0.70 m/s | |MV Dec Garrett: 2.68 m/s2 | |MV DecT: 211.45 ms [...] |TR Vmax: 2.22 m/s | | | |Manager Baby: | |Authenticated by: Marshall Gutierrez MD, FACC, [...]
--- OUTSIDE RECORDS SUMMARY | ~2019-06-30 | XMS | Encounter Summary ---
Demographics + + + | Address | [address] | | | [place] [address] | + + + | Home Phone | | + + + | Preferred Language | Unknown | + + + | Marital Status | | + + + | Gnosticist Affiliation | 1041 | + + + | Race | Unknown | + + + | Ethnic Group | Unknown | + + + Author + + + | Author | [facility] | | | and Luisana | + + + | Organization | [facility] | | | [...] Team Providers + +------+ + | Care Automobile Mechanic Apprentice Name | Role | Phone | [...] + + | 06/09/ | Refill | [facility] | Fabrice Hansen | Medication Refill | | 2020 | | [facility] | DO [address] | | | | | [address] | [facility] | | | | | [address] [facility] [address] | [address] [place], [place] | | | | | [place], [place] | [id number] | | | | | [address] | | | | | | [phone] | | | +--------+--------+ + + + [...] | | | | | | [place] [address] | | | | | | [phone] | | | | | | | [...]
--- OUTSIDE RECORDS SUMMARY | ~2019-06-30 | XMS | Encounter Summary ---
Demographics + + + | Address | [address] | | | [place] [address] | + + + | Home Phone | | + + + | Preferred Language | Unknown | + + + | Marital Status | | + + + | Evangelical Affiliation | 1041 | + + + [...] Team Providers + +------+ + | Care Storage Receipt Poster Name | Role | Phone | + +------+ + | Fabrice Hansen DO | PCP | | + +------+ + Encounter Details +--------+ + + + + | Date | Type | Department | Care Team | Description | +--------+ + + + + | 11/05/ | Orders Only | [facility] | Bacilio Thompson MD | Calculus of bile | | 2019 | | and Pancreas GI | [address] | duct with | | | | [address] | [address] [place], [place] | cholangitis and | | | | [address] | [address] | obstruction, | | | | [place], [place] | | unspecified | | | | [address] | | cholangitis acuity | | | | [phone] | | (Primary Dx) | +--------+ + + + + Social [...] MÉNDEZ | | | | | | [place] [address] | | | | | | [phone] | | | | | | | | +--------+---------+ + + + documented as of this encounter Visit Diagnoses + + | Diagnosis | + + | Calculus of bile duct with cholangitis and obstruction, unspecified cholangitis acuity | | - Primary | + + documented in this encounter"
--- OUTSIDE RECORDS SUMMARY | ~2019-06-30 | XMS | Encounter Summary ---
Demographics + + + | Address | [address] | | | [place] [address] | + + + | Home Phone [...] Team Providers + +------+ + | Care Seam Taper Machine Name | Role | Phone | + +------+ + | Fabrice Hansen DO | PCP | | + +------+ + Encounter Details +--------+ + + + + | Date | Type | Department | Care Team | Description | +--------+ + + + + | 06/22/ | Orders Only | [facility] | Marshall Gutierrez, | | | 2018 | | CARDIOLOGY SACHIN | [address] | | | | | [address] | [place] [address] | | | | | [facility] | [phone] | | | | | [address] | | | | | | [phone] | | | +--------+ + + + [...] MÉNDEZ | | | | | | [place] [address] | | | | | | [phone] | | | | | | | [...] | INDICATIONS ASCENDING AORTIC ANEURYSM, HX OF RI, CABG | | | CONCLUSIONS 1. This [...] | A Zen: 0.71 m/s MV Dec [place]: 2.32 m/s2 MV DecT: 268.80 ms | [...] RV s': 0.07 m/s | | | Shared Services And Outsourcing Manager: DBS Authenticated by: Marshall Gutierrez MD, FACC, FACP, | | | FASRI Report Date/Time: -- [id number] | | + + + + + | Procedure Note | + + | Jamie Kowalski Conversion - 09/30/2018 1:07 PM PDT Patient Name: Kailash LEMUS of | | : 1945 Performing Physician: Marshall Gutierrez MD, [facility], | | FACP, | | FASNC INDICATIONS--------- | | --ASCENDING AORTIC ANEURYSM, HX OF RI, CABG CONCLUSIONS 1. This was a | [...] cmLVPWd: 0.81 cmLVOT | | Area: 3.30 [id number] Diam: 2.05 cm%FS: 32.04 %EF(Teich): 59.75 %ESV(Teich): [...] mlLAESV Index (A-L): 28.74 ml/m2LAAs A2C: 15.98 ka9WOKHC A-L A2C: 46.36 | | mlLALs A2C: 4.67 cmLAAs A4C: 14.96 wd6PTTRR A-L A4C: 44.93 mlLALs A4C: 4.23 | | cmRAAs: 13.33 [id number] A-L: 34.05 mlRAESV MOD: 34.09 mlRALs: 4.43 cmTAPSE: | | 2.11 cmAV maxP.46 mmHgAV meanP.47 mmHgAV Vmax: 1.45 m/Yamila Vmean: 0.98 | | m/Yamila VTI: 32.27 cmAVA Vmax: 2.21 cm2AVA (VTI): 2.35 fk7KWFA (Vmax): 0.00 | | cm2/m2AVAI (VTI): 0.00 cm2/m2LVOT maxP.78 mmHgLVOT meanP.90 mmHgLVSI Dopp: | | 45.44 ml/m2LVSV Dopp: 75.89 mlLVOT Vmax: 0.97 m/sLVOT Vmean: 0.64 m/sLVOT VTI: | | 22.96 cmMV A Zen: 0.71 m/sMV Dec [place]: 2.32 m/s2MV DecT: 268.80 msMV E Zen: | | 0.62 m/sMV E/A Ratio: 0.86MV PHT: 77.95 msMVA By PHT: 2.82 mq7Dqblrl e': 0.05 | | m/sSeptal E/e': 10.83Lateral e': 0.05 m/sLateral E/e': 10.83PV maxP.24 | | mmHgPV Vmax: 1.34 m/sRAP: 5 mmHgRVSP: 25.54 mmHgTR maxP.54 mmHgTR Vmax: | | 2.26 m/sRV s': 0.07 m/s Shared Services And Outsourcing Manager: DBSAuthenticated by: Marshall Gutierrez MD, FACC, | | FACP, FASNCReport Date/Time: -- [id number] IMPRESSION: 1. This was a | | [...] A Zen: 0.71 m/s | |MV Dec [place]: 2.32 m/s2 | |MV DecT: 268.80 ms [...] |RV s': 0.07 m/s | | | |Shared Services And Outsourcing Manager: DBS | |Authenticated by: Marshall Gutierrez MD, FACC, FACP, FASNC | |Report Date/Time: -- [id number] | | | |IMPRESSION: | |1. This [...]
--- OUTSIDE RECORDS SUMMARY | ~2019-06-30 | XMS | Encounter Summary ---
Demographics + + + | Address | [address] | | | [place] [address] | + + + | Home Phone [...] Team Providers + +------+ + | Care Quality Control Assessor Name | Role | Phone | + [...] + + | 11/15/ | Telephone | [facility] | Kasia Levin RN | Triage | | 2019 | | [facility] | | | | | | [address] | | | | | | [address] | | | | | | [place], [place] | | | | | | [address] | | | | | | [phone] | | | +--------+ + + + [...] MÉNDEZ | | | | | | [place] [address] | | | | | | [phone] | | | | | | | | +--------+---------+ + + + documented as of this encounter Visit Diagnoses Not on filedocumented in this encounter"
--- OUTSIDE RECORDS SUMMARY | ~2019-06-30 | XMS | Encounter Summary ---
Demographics + + + | Address | [address] | | | [place] [address] | + + + | Home Phone [...] Team Providers + +------+ + | Care Aircraft Tool Maker Name | Role | Phone | + +------+ + | Fabrice Hansen DO | PCP | | + +------+ + Encounter Details +--------+ + + + + | Date | Type | Department | Care Team | Description | +--------+ + + + + | 03/05/ | Orders Only | [facility] | Fabrice Hansen | | | 2019 | | [facility] | Refug[address]remias[address] | | | | | [address] | [address] | | | | | [address] | [address] [place], [place] | | | | | [place], [place] | [address] | | | | | [address] | | | | | | [phone] | | | +--------+ + + + [...] MÉNDEZ | | | | | | [place] [address] | | | | | | [phone] | | | | | | | | +--------+---------+ + + + documented as of this encounter Visit Diagnoses Not on filedocumented in this encounter"
--- OUTSIDE RECORDS SUMMARY | ~2019-06-30 | XMS | Encounter Summary ---
Demographics + + + | Address | [address] | | | [place] [address] | + + + | Home Phone | | + + + | Preferred Language | Unknown | + + + | Marital Status | | + + + | Anabaptist Affiliation | 1041 | + + + | Race | Unknown | + + + | Ethnic Group | Unknown | + + + Author + + + | Author | [facility] | | | and Luisana | + + + | Organization | [facility] | | | [...] Team Providers + +------+ + | Care Consulting Database Administrator Name | Role | Phone | + [...] | INTRA [address] | [place], [place] | | | | | Ave [place], [place] | [phone] | | | | | [address] | | | | | | [phone] | Gomez Munroe MD | | | | | | [address] | | | | | | [place], [place] | | | | | | [phone] | | | | | | | [...] | 11/16/181838 by | | jacqui | poau-sef-gdklhq catheter system | Samantha Gomez RN | [...] MÉNDEZ | | | | | | [place] [address] | | | | | | [phone] | | | | | | | [...] - 11/09/2018 1:43 PM PDT Anesthesia Airway Bmehofvvc02/1/2019 | | 13:31Preprocedure check: patient identified, oxygen, airway assessed, suction, airway | | equipment checked and patient reassessment prior to inductionRapid Sequence Induction: | | noMask ventilation: easySuccessful technique: MillerLaryngoscope blade size: 2 Airway | | grade: 1 (Full view of glottis)Other equipment: styletteAttempts: 1Airway type: | | endotrachealSize: 7Cuffed: cuffed and cuff at 20 [id number], reference point: right side | | of [...]
--- OUTSIDE RECORDS SUMMARY | ~2019-06-30 | XMS | Encounter Summary ---
Demographics + + + | Address | [address] | | | [place] [address] | + + + | Home Phone [...] Providers + +------+ + | Care Mold Machine Operator Name | Role | Phone | [...] + + | 04/16/ | Refill | [facility] | Fabrice Hansen | Medication Refill | | 2020 | | [facility] | DO [address] | | | | | [address] | [facility] | | | | | [address] [facility] [address] | [address] [place], [place] | | | | | [place], [place] | [id number] | | | | | [address] | | | | | | [phone] | | | +--------+--------+ + + + [...] | | | | | [place] [address] | | | | | | [phone] | | | | | | | | +--------+---------+ + + + documented as of this encounter Visit Diagnoses Not on filedocumented in this encounter"
--- OUTSIDE RECORDS SUMMARY | ~2019-06-30 | XMS | Encounter Summary ---
Demographics + + + | Address | [address] | | | [place] [address] | + + + | Home Phone [...] Team Providers + +------+ + | Care Roofing Machine Operator Name | Role | Phone | + +------+ + | Fabrice Hansen DO | PCP | | + +------+ + Encounter Details +--------+ + + + + | Date | Type | Department | Care Team | Description | +--------+ + + + + | 05/25/ | Orders Only | [facility] | Fabrice Hansen | | | 2018 | | [address] | DO [address] | | | | | [place], [place] | [address] [facility] | | | | | [address] | [address] [place], [place] | | | | | [phone] | [address] | | | | | | | [...] MÉNDEZ | | | | | | [place] [address] | | | | | | [phone] | | | | | | | | +--------+---------+ + + + documented as of this encounter Procedures + +--------+ + + + | Procedure Name | Priori | Date/Time | Associated Diagnosis | Comments | | | ty | | | | + +--------+ + + + | EXTERNAL LAB: [facility] | Routin | 05/25/2018 | | Results for this | | | e | 11:33 AM | | procedure are in the | | | | PDT | | results section. | + +--------+ + + + | THYROID PANEL WITH | Routin | 05/25/2018 | | Results for this | | TSH | e | 11:33 AM | | procedure are in the | | | | PDT | | results section. | + +--------+ + + + | COMPREHENSIVE | Routin | 05/25/2018 | | Results for this | | METABOLIC PANEL | e | 11:33 AM | | procedure are in the | | | | PDT | | results section. | + +--------+ + + + documented in this encounter Results Thyroid Panel with TSH (05/25/2018 11:33 AM PDT) + + + + + + | Component | Value | Ref Range | Performed | Pathologist | | | | | At | Signature | + + + + + + | T3 Uptake | 28.2 (L) | 30.0 - 39.0 % | EXTERNAL | | | | | | LAB | | + + + + + + | T4, Total | 7.5 | 4.7 - 11.3 | EXTERNAL | | | | | ug/dL | LAB | | + + + + + + | Free | 2.1 | 1.1 - 4.6 | EXTERNAL | | | Thyroxine | | | LAB | | | Index | | | | | + + + + + + | TSH | 4.110 | 0.450 - 5.100 | EXTERNAL | [...] + +---------+ + + External Lab: CBC (05/25/2018 11:33 AM PDT) + + + + + + | Component | Value | Ref Range | Performed | Pathologist | | | | | At | Signature | + + + + + + | WBC | 10.43 | 3.80 - 11.00 | EXTERNAL | | | | | 10*3/uL | LAB | | + + + + + + | Red Blood | 4.28 | 3.70 - 5.10 | EXTERNAL | | | Cells | | 10*6/uL | LAB | | | Counted | | | | | + + + + + + | Hemoglobin | 13.8 | 11.3 - 15.5 | EXTERNAL | | | | | g/dL | LAB | | + + + + + + | Hematocrit, | 41.4 | 34.0 - 46.0 % | EXTERNAL | | | POC | | | LAB | | + + + + + + | MCV | 96.6 | 80.0 - 100.0 fL | EXTERNAL | | | | | | LAB | | + + + + + + | MCH | 32.3 | 27.0 - 34.0 pg | EXTERNAL | | | | | | LAB | | + + + + + + | MCHC | 33.4 | 32.0 - 35.5 | EXTERNAL | | | | | g/dL | LAB | | + + + + + + | RDW-CV | 47.7 | 37 - 53 fL | EXTERNAL | | | | | | LAB | | + + + + + + | Platelet | 258 | 150 - 400 | EXTERNAL | | | Count | | 10*3/uL | LAB | | | Plasma | | | | | + + + + + + | MPV | 9.4 | fL | EXTERNAL | | | | | | LAB | | + + + + + + | Differentia | AUTOMATED | | EXTERNAL | | | l Type | | | LAB | | + + + + + + | % Segmented | 74.85 | % | EXTERNAL | | | | | | LAB | | | Neutrophils | | | | | + + + + + + | % | 19.36 | % | EXTERNAL | | | Lymphocytes | | | LAB | | + + + + + + | % Monocytes | 4.40 | % | EXTERNAL | | | | | | LAB | | + + + + + + | % | 0.92 | % | EXTERNAL | | | Eosinophils | | | LAB | | + + + + + + | % Basophils | 0.47 | % | EXTERNAL | | | | | | LAB | | + + + + + + | Absolute | 7.80 (H) | 1.90 - 7.40 | EXTERNAL | | | Segmented | | 10*3/uL | LAB | | | Neutrophils | | | | | + + + + + + | Absolute | 2.02 | 1.00 - 3.90 | EXTERNAL | | | Lymphocytes | | 10*3/uL | LAB | | + + + + + + | Absolute | 0.46 | 0.00 - 0.80 | EXTERNAL | | | Monocytes | | 10*3/uL | LAB | | + + + + + + | Absolute | 0.10 | 0.00 - 0.50 | EXTERNAL | | | Eosinophils | | 10*3/uL | LAB | | + + + + + + | Absolute | 0.05 | 0.00 - 0.10 | EXTERNAL | [...] + +---------+ + + Comprehensive Metabolic Panel (05/25/2018 11:33 AM PDT) + + + + + + | Component | Value | Ref Range | Performed | Pathologist | | | | | At | Signature | + + + + + + | Na | 138 | 135 - 145 | EXTERNAL | | | | | mmol/L | LAB | | + + + + + + | K | 4.4 | 3.5 - 4.9 | EXTERNAL | | | | | mmol/L | LAB | | + + + + + + | Cl | 100 | 99 - 109 mmol/L | EXTERNAL | | | | | | LAB | | + + + + + + | CO2 | 30 | 23 - 32 mmol/L | EXTERNAL | | | | | | LAB | | + + + + + + | Anion Gap | 12 | 5 - 20 mmol/L | EXTERNAL | | | | | | LAB | | + + + + + + | Glucose, | 66 | 65 - 99 mg/dL | EXTERNAL [...] + + + + | Calcium | 9.2 | 8.5 - 10.5 | EXTERNAL | | | | | mg/dL | LAB | | + + + + + + | Protein, | 7.3 | 6.3 - 8.2 g/dL | EXTERNAL | | | Total | | | LAB | | + + + + + + | Albumin | 4.4 | 3.3 - 4.8 g/dL | EXTERNAL | | | | | | LAB | | + + + + + + | Globulin | 2.9 | 1.3 - 4.9 g/dL | EXTERNAL | | | | | | LAB | | + + + + + + | A/G Ratio | 1.5 | 1.0 - 2.4 | EXTERNAL | | | | | | LAB | | + + + + + + | Bilirubin | 0.4 | 0.1 - 1.5 mg/dL | EXTERNAL | | | Total | | | LAB | | + + + + + + | ALP, | 118 (H) | 35 - 115 U/L | EXTERNAL | | | External | | | LAB | | + + + + + + | AST | 6 (L) | 10 - 45 U/L | EXTERNAL | | | | | | LAB | | + + + + + + | ALT | 21 | 10 - 65 U/L | EXTERNAL [...]
--- OUTSIDE RECORDS SUMMARY | ~2019-06-30 | XMS | Encounter Summary ---
Demographics + + + | Address | [address] | | | [place] [address] | + + + | Home Phone | | + + + | Preferred Language | Unknown | + + + | Marital Status | | + + + | Islam Affiliation | 1041 | + + + [...] Team Providers + +------+ + | Care Curtain Fitter Name | Role | Phone | + [...] | | [address] | [place] [address] | | | | | [place] | [phone] | | | | | [address] | | | | | | [phone] | | | +--------+ + + + [...] | | | | | | [place] [address] | | | | | | [phone] | | | | | | | [...]
--- OUTSIDE RECORDS SUMMARY | ~2019-06-30 | XMS | Encounter Summary ---
Demographics + + + | Address | [address] | | | [place] [address] | + + + | Home Phone [...] Team Providers + +------+ + | Care Cleaning And Washing Equipment Operator Name | Role | Phone | [...] | Required | | | artery | FRAME TABLE OPERATOR HELPER [address] | | | | | disease | [address] | [place], [place] | | | | | involving | [place] | [address] | | | | | [place] | [place], [place] | Phone: | | | | | coronary | [address] | [phone] | | | | | artery of | Phone: | Fax: | | | | | [place] | [phone] | [phone] | | | | | heart, | Fax: | | | | | | angina | [phone] | | | | | | presence [...] | | | | | | | ([facility]) | | | | | | | [...] + + | 12/21/ | Office | [facility] | Erin Limon | Coronary artery | | 2019 | Visit | CARDIOLOGY [place] | [address] | disease involving | | | | [address] | [address] | [place] coronary | | | | [address] | [place] [address] | artery of [place] | | | | [address] | [phone] | heart, angina | | | | [phone] | | presence unspecified | | | [...] this encounter Patient Instructions Patient Instructions Erin Lmion FNP - 12/21/2018 9:30 AM PSTI have ordered you fasting labs to be done at [facility] sometime in next 2 weeks, I also [...] from electronic medical record, and from outside [facility]. She is a patient of Dr. Gutierrez and last seen by him 07/15/2018 when Echo Reviewed , and order ed another Echo for next year , and continued on Metoprolol, and Lisinopril 10 mg She has a history of coronary artery disease with previous stenting to her LAD in 2000, o pen heart surgery in 2001 in [place], previous history of myocardial infarction in 2001, [...] became ill when visiting her daughter in [place] 02/01/2018, and was then hospital ized February 21-to March 02 with sepsis secondary to Klebsiella bacteremia and discharged with 10-day course of Cipro and then developed frequent septic shock and was sent to [facility] 03/03/2018-03/15/2018 for further management. She had a liver abscess in her right hepatic lobe which was drained, and she was treated with IV antibiotics, and followed by infectious diseases with plan antibiotics through April 06 at [facility] in [facility]. 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 She was admitted again to the emergency room at [facility] on November 16 with abdominal pain, [...] November 11, 2018 during her hospitalization in [place] showed a bradycardic heart rate of 4 [...] le gal problems, and has been in penitentiary. She brought her medications to the clinic [...] TOTEPI CARDIAC PROCEDURES/IMAGING Last angiogram : 03/13/2015: Pzdd-er-oayeafsf left ventricular dysfunction with wall motion abnormality [...] No pulmonary hypertension, RVSP 25.55 mmHg. Mild MN. No pericardial effusion. IVC WNL, normal CVP. [...] No pulmonary hypertension, RVSP 22.04 mmHg. Mild MN. No p ericardial effusion. IVC WNL, CVP [...] of pulmonary hypertension, RVSP 24.79 mmHg. Mild MN. IVC normal CVP 5- 10 mmHg. 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 EKG/EVENT MONITOR EK03/03 2017: Normal sinus rhythm, T-wave inversion to anterior and lateral leads, simila r to EKG in March 2015. Low voltage QRS, poor R wave progression. Rate 69 bpm, MN 152 m s, QRS 86 ms, QTC 420 ms EK11/11/2018: (metoprolol):Sinus bradycardia, ventricular trigeminy, nonspecific T wave a bnormality to anterolateral lead. Rate 44 bpm, MN 160 ms, QRS 98 ms, QTC 397 ms, tracing pe rsonally reviewed by me, and compared to previous EKG, has trigeminal PVC, as well as fabrizio cardic heart rate. EK12/21/2018: Sinus rhythm with occasional PVCs. Rate 64 bpm, MN 158 ms, QRS 92 ms, QTC 410 [...] hematocrit 37.8, platelets 222 Labs: 12/04/2018: ( [facility] ER) INR 0.9. Lipase 27. CMP: Sodium [...] in November. 1. Coronary artery disease involving [place] coronary artery of [place] heart, angina presenc e unspecified 2. Hx [...] inadvertent rec ognition errors. Fredi HENNESSY [facility] 12/21/2018 docum ented in this encounter [...] [address] | | | | | | [place] [address] | | | | | | [phone] | | | | | | | [...] 06/10/2019, Expires: | | | | | [place] coronary | 12/22/2019 | | | | | artery of [place] | | | | | | heart, [...] the | | | | PST | [place] coronary | results section. | | | | | artery of [place] | | | | | | heart, [...] | | [facility] | | | | Bl[address];[place] [address] | | LABORATORY | | + + + + + + + + | Specimen | + + | Blood | + + + + + + + | Performing | Address | City/State/Zipcode | Phone Number | | Organization | | | | + + + + + | REFERENCE LAB | [address] [place] [address] | [place], [place] | [phone] | | [facility] | [address] | [address] | | | LABORATORY | | | | + + + + + | REFERENCE LAB | [address] [place] [address] | [place], [place] | | | [facility] | Bl[address] | [address] | | | LABORATORY | | | [...] | | | Calculated | performed at [facility];[address] | | LAB | | | | [place] | | [facility] | | | | [address];[place] [address] | | LABORATORY | | + + + + + + + + | Specimen | + + | Blood | + + + + + + + | Performing | Address | City/State/Zipcode | Phone Number | | Organization | | | | + + + + + | REFERENCE LAB | [address] [facility] | [place] | [phone] | | [facility] | [address] | [address] | | | LABORATORY | | | | + + + + + | REFERENCE LAB | [address] | [place] | | | [facility] | [address] | [address] | | | LABORATORY | | | [...] | | | | | by [facility] [place] Read Only, | | | | | | [facility] Pan ([id number]), | | | | | | editorial clerk Antonio Jamil | | | | | [...] + + | Coronary artery disease involving [place] coronary artery of [place] heart, angina | | presence unspecified - [...]
--- OUTSIDE RECORDS SUMMARY | ~2019-06-30 | XMS | Encounter Summary ---
Demographics + + + | Address | [address] | | | [place] [address] | + + + | Home Phone | | + + + | Preferred Language | Unknown | + + + | Marital Status | | + + + | Jew Affiliation | 1041 | + + + | Race | Unknown | + + + | Ethnic Group | Unknown | + + + Author + + + | Author | [facility] | | | and [place] | + + + | Organization | [facility] | | | [...] Team Providers + +------+ + | Care Open Soaper Tender Name | Role | Phone | + +------+ + | Fabrice Hansen DO | PCP | | + +------+ + Encounter Details +--------+ + + + + | Date | Type | Department | Care Team | Description | +--------+ + + + + | 11/12/ | Documentati | [facility] | Breann Maria PA | | | 2019 | on | and Pancreas GI | [address], [place] | | | | | [address] | [address] [place], [place] | | | | | [address] | [address] | | | | | [place] | | | | | | [address] | | | | | | [phone] | | | +--------+ + + + [...] and dropped the ord ers internally to [facility]. Patient does not require authorization so she does not have to amie t for them to contact her if she does not want too. oletic, Gabriela Salas RN - 11/12/2018 4:55 PM PDTSpoke with Car ol. Discussed f/u plan described in Breann SANTOS's note. Pt states she has been in contact with local GI. She was in [facility] ER 2 days ago d/t abdominal pain. Pain resolved now but she states no BM in ~10 days. She states she reported this in ER. CT was done 11/16. She has fle ets enema that she plans to take today. She has appt with GI ADMISSION SPECIALIST next Thursday. Labs and M PETAL CUTTER can be done at [facility] in 4-6 weeks but ERCP will need to be completed in [place]. Arlene t was given Dr. Thompson's engineering group manager's phone number. She agrees to f/u with [facility] GI. Called Meme Rivera's office at [facility] GI. Left message for clinical staff to c/b for co ordinating POC. [employer] to PCC requesting location change for MRCP. Labs faxed to [facility] at [phone]. Elect ronically signed by Gabriela Leal, RN [...] have been placed, but pt lives in [place] and looks like she has appt with local GI in [facility] on 11/24. I will ask Dr. Thompson's [...] MÉNDEZ | | | | | | [place] [address] | | | | | | [phone] | | | | | | | | +--------+---------+ + + + documented as of this encounter Visit Diagnoses Not on filedocumented in this encounter"
--- OUTSIDE RECORDS SUMMARY | ~2019-06-30 | XMS | Encounter Summary ---
Demographics + + + | Address | [address] | | | [place] [address] | + + + | Home Phone [...] Team Providers + +------+ + | Care Broom Stitcher Name | Role | Phone | + +------+ + | Fabrice Hansen DO | PCP | | + +------+ + Reason for Visit +--------+ + | Reason | Comments | +--------+ + | ED | seen in emergency department | +--------+ + Encounter Details +--------+ + + + + | Date | Type | Department | Care Team | Description | +--------+ + + + + | 11/17/ | Telephone | [facility] | Meme Le | ED (seen in | | 2019 | | GASTROENTEROLOGY | A, PLANNER/SCHEDULER [address] | emergency | | | | [address] | [place] [address] | department) | | | | [place], [place] | [phone] | | | | | [address] | | | | | | [phone] | | | +--------+ + + + [...] MÉN[address]Z | | | | | | [place] [address] | | | | | | [phone] | | | | | | | | +--------+---------+ + + + documented as of this encounter Visit Diagnoses Not on filedocumented in this encounter"
--- OUTSIDE RECORDS SUMMARY | ~2019-06-30 | XMS | Encounter Summary ---
Demographics + + + | Address | [address] | | | [place] [address] | + + + | Home Phone | | + + + | Preferred Language | Unknown | + + + | Marital Status | | + + + | Christianity Affiliation | 1041 | + + + | Race | Unknown | + + + | Ethnic Group | Unknown | + + + Author + + + | Author | [facility] | | | and [place] | + + + | Organization | [facility] | | | [...] Team Providers + +------+ + | Care Delivery Lead Name | Role | Phone | [...] + + | 03/09/ | Refill | [facility] | Fabrice Hansen | Medication Refill | | 2020 | | [facility] | DO Lucius [address] | | | | | [facility] [address] | [facility] | | | | | [address] [facility] [address] | [address] [place], [place] | | | | | [place], [place] | [id number] | | | | | [address] | | | | | | [phone] | | | +--------+--------+ + + + [...] | | | | | [place] [address] | | | | | | [phone] | | | | | | | | +--------+---------+ + + + documented as of this encounter Visit Diagnoses Not on filedocumented in this encounter"
--- OUTSIDE RECORDS SUMMARY | ~2019-06-30 | XMS | Encounter Summary ---
Demographics + + + | Address | [address] | | | [place] [address] | + + + | Home Phone [...] Team Providers + +------+ + | Care Green House Manager Name | Role | Phone | + +------+ + PCP | Unavailable | + +------+ + Encounter Details +--------+ + + + + | Date | Type | Department | Care Team | Description | +--------+ + + + + | 10/14/ | Hospital | [facility] | Conversion | | | 2013 | Encounter | CENTER [facility] | Transaction, | | | | | CLINIC [address] | Provider Unknown | | | | | [place], [place] | | | | | | [address] | (Fax) | | | | | [phone] | | | +--------+ + + + [...] MÉ[place]Z | | | | | | [place] [address] | | | | | | [phone] | | | | | | | [...] EXTERNAL LAB | | Testing performed at [address];[place] [address] MRSA PCR | | | NEGATIVE Testing performed at | | | [address];[place] [address] | | + + + + +---------+ [...] + + | Historically converted procedure from [facility] environment | EXTERNAL LAB | + + + + +---------+ + + | Performing | Address | City/State/Zipcode | Phone Number | | Organization | | | | + +---------+ + + | EXTERNAL LAB | | | | + +---------+ + + documented in this encounter Visit Diagnoses Not on filedocumented in this encounter"
--- OUTSIDE RECORDS SUMMARY | ~2019-06-30 | XMS | Encounter Summary ---
Demographics + + + | Address | [address] | | | [place] [address] | + + + | Home Phone | | + + + | Preferred Language | Unknown | + + + | Marital Status | | + + + | Zoroastrianism Affiliation | 1041 | + + + | Race | Unknown | + + + | Ethnic Group | Unknown | + + + Author + + + | Author | [facility] | | | and [place] | + + + | Organization | [facility] | | | [...] Team Providers + +------+ + | Care Msw Name | Role | Phone | + [...] Provider Unknown | | | | | [place], [place] | [phone] | | | | | [address] | | | | | | [phone] | | | +--------+ + + + [...] | | | | | [place] [address] | | | | | | [phone] | | | | | | | | +--------+---------+ + + + documented as of this encounter Visit Diagnoses Not on filedocumented in this encounter"
--- OUTSIDE RECORDS SUMMARY | ~2019-06-30 | XMS | Encounter Summary ---
Demographics + + + | Address | [address] | | | [place] [address] | + + + | Home Phone | | + + + | Preferred Language | Unknown | + + + | Marital Status | | + + + | Jewish Affiliation | 1041 | + + + | Race | Unknown | + + + | Ethnic Group | Unknown | + + + Author + + + | Author | [facility] | | | and [place] | + + + | Organization | [facility] | | | [...] Providers + +------+ + | Care Physical Plant Employee Name | Role | Phone | + [...] | | Required | | artery | MANAGER OF CREATIVE SERVICES [address] | [address] | | | | | disease | [address] | [place] | | | | | involving | [place] | [address] | | | | | [place] | [place] | [address] | | | | | coronary | [address] | [place] | | | | | artery of | Phone: | [phone] Phone: | | | | | [place] | [phone] | [phone] | | | | | heart, | Fax: | Fax: | | | | | angina | [phone] | [phone] | | | | | presence | [...] + + | 02/23/ | Office | [facility] | Erin Lmion | Coronary artery | | 2019 | Visit | CARDIOLOGY [place] | [address] | disease involving | | | | [address] | [address] | [place] coronary | | | | [address] | [place] [address] | artery of [place] | | | | [address] | [phone] | heart, angina | | | | [phone] | | presence unspecified | | | [...] | | | | | | type ([facility]); Smoker; | | | | | | [...] this encounter Patient Instructions Patient Instructions BraxtonErin, MANAGER OF CREATIVE SERVICES - 02/23/2019 9:30 AM PST I have referred you to Dr. Reveles at [place] [facility] , call [phone] for an appoi ntment next week No changed to medications today I will see you in July afte Echo to be done in June You can establish care with Dr. Abbott in December as new director shopper marketing How to Quit Smoking Smoking is one [...] find a support program: Free national quitline: 457-HJEM-KIJ (983-259-2908). Hospital quit-smoking programs. [employer] Association: (825.555.2042). [employer] (564-108-3523). Support at home is important too. Nonsmokers can offer praise and encouragement. If the smo ker in your life finds it hard to quit, encourage them to keep trying. Oluf-vro-qzpakoi medicines Nicotine replacement therapymay make quittingeasier. Certain [...] to quit smoking, try these online resources: Arcaris.gov "Clearing the Air" booklet from the National Cancer Ozan: Bioheartfree.gov/sites/defau /files/pdf/egusrkpt-bin-ynz-accessible.pdf Date Last Reviewed: 04/09/201619992448-1112 [employer]. [address] [place] [address]. All righ ts reserved. This information is [...] from electronic medical record, and from outside hospital [facility]. She is a patient of Dr. Gutierrez and last seen by him 07/15/2018 when Echo Reviewed , and order ed another Echo for next year , and continued on Metoprolol, and Lisinopril 10 mg She has a history of coronary artery disease with previous stenting to her LAD in 2000, o pen heart surgery in 2001 in [place], previous history of myocardial infarction in 2001, [...] saw her last, she was seen in [place]. She had previous ERCP with stent placed [...] gets MRI of abdomen in March at [facility] She had previous history of admission for severe sepsis, pneumonia and a liver abscess aft er she became ill when visiting her daughter in [place] 02/01/2018, and was then hospitaliz ed February 21-to March 02 with sepsis secondary to Klebsiella bacteremia and discharged wi th 10-day course of Cipro. She then developed frequent septic shock and was sent to [facility] 03/03/2018-03/15/2018 for further management. She had a liver abscess in her right hepatic lobe which was drained, and she was treated with IV antibiotics, and followed by infectious diseases with plan antibiotics through April 06 at [facility] in [facility]. She reports today that she has recovered [...] did not tolerate Chantix. She has a business communications instructor friend who is an RN whom she [...] le gal problems, and has been in intermediate. She brought her medications to the clinic [...] TOTEPI CARDIAC PROCEDURES/IMAGING Last angiogram : 03/13/2015: Ifbb-el-einnxxmb left ventricular dysfunction with wall motion abnormality [...] No pulmonary hypertension, RVSP 25.55 mmHg. Mild HI. No pericardial effusion. IVC WNL, normal CVP. [...] No pulmonary hypertension, RVSP 22.04 mmHg. Mild HI. No p ericardial effusion. IVC WNL, CVP [...] of pulmonary hypertension, RVSP 24.79 mmHg. Mild HI. IVC normal CVP 5- 10 mmHg. 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 EKG/EVENT MONITOR EK03/03 2017: Normal sinus rhythm, T-wave inversion to anterior and lateral leads, simila r to EKG in March 2015. Low voltage QRS, poor R wave progression. Rate 69 bpm, HI 152 m s, QRS 86 ms, QTC 420 ms EK11/11/2018: (metoprolol):Sinus bradycardia, ventricular trigeminy, nonspecific T wave a bnormality to anterolateral lead. Rate 44 bpm, HI 160 ms, QRS 98 ms, QTC 397 ms, tracing pe rsonally reviewed by me, and compared to previous EKG, has trigeminal PVC, as well as fabrizio cardic heart rate. EK12/21/2018: Sinus rhythm with occasional PVCs. Rate 64 bpm, HI 158 ms, QRS 92 ms, QTC 410 [...] hematocrit 37.8, platelets 222 Labs: 12/04/2018: ( [facility] ER) INR 0.9. Lipase 27. CMP: Sodium [...] evaluation and treatment to Dr. Reveles at [facility] sleep disorders clinic I will also [...] care with Dr. Abbott as her primary director shopper marketing in December, as s he prefers to see cardiology in [place] if possible . 1. Coronary artery disease involving [place] coronary artery of [place] heart, angina presenc e unspecified 2. Hx [...] inadvertent rec ognition errors. DannyPenny Braxton HENNESSY [facility] 02/23/2019 Erin Reid FNP - 02/23/2019 [...] from electronic medical record, and from outside hospital for behavioral medicine. She is a patient of Dr. Gutierrez and last seen by him 07/15/2018 when Echo Reviewed , and order ed another Echo for next year , and continued on Metoprolol, and Lisinopril 10 mg She has a history of coronary artery disease with previous stenting to her LAD in 2000, o pen heart surgery in 2001 in [place], previous history of myocardial infarction in 2001, [...] saw her last, she was seen in [place]. She had previoiusn ERCP with stent placed 11/09/18 for choledocholithiasis. Her postprocedure course was complicated by cholangitis. She was again admitted on 12/31/2018 following ERCP with stent removal. and follow up stent removal 01/01/2019. She had previous history of admission for severe sepsis, pneumonia and a liver abscess aft er she became ill when visiting her daughter in [place] 02/01/2018, and was then hospitaliz ed February [...] with plan antibiotics through April 06 at [facility] in [place] . 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 She was admitted again to the emergency room at [facility] on November 16 with abdominal pain, and consequently followed up with GI CLERICAL SUPPORTPhoebe Le 11/24/2018 when doing better, but then [...] November 11, 2018 during her hospitalization in [place] showed a bradycardic heart rate of 4 [...] le gal problems, and has been in intermediate. She brought her medications to the clinic [...] TOTEPI CARDIAC PROCEDURES/IMAGING Last angiogram : 03/13/2015: Pohw-fx-aolgbwhg left ventricular dysfunction with wall motion abnormality [...] No pulmonary hypertension, RVSP 25.55 mmHg. Mild HI. No pericardial effusion. IVC WNL, normal CVP. [...] No pulmonary hypertension, RVSP 22.04 mmHg. Mild HI. No p ericardial effusion. IVC WNL, CVP [...] of pulmonary hypertension, RVSP 24.79 mmHg. Mild HI. IVC normal CVP 5- 10 mmHg. 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 EKG/EVENT MONITOR EK03/03 2017: Normal sinus rhythm, T-wave inversion to anterior and lateral leads, simila r to EKG in March 2015. Low voltage QRS, poor R wave progression. Rate 69 bpm, HI 152 m s, QRS 86 ms, QTC 420 ms EK11/11/2018: (metoprolol):Sinus bradycardia, ventricular trigeminy, nonspecific T wave a bnormality to anterolateral lead. Rate 44 bpm, HI 160 ms, QRS 98 ms, QTC 397 ms, tracing pe rsonally reviewed by me, and compared to previous EKG, has trigeminal PVC, as well as fabrizio cardic heart rate. EK12/21/2018: Sinus rhythm with occasional PVCs. Rate 64 bpm, HI 158 ms, QRS 92 ms, QTC 410 [...] hematocrit 37.8, platelets 222 Labs: 12/04/2018: ( [facility] ER) INR 0.9. Lipase 27. CMP: Sodium [...] in November. 1. Coronary artery disease involving [place] coronary artery of [place] heart, angina presenc e unspecified 2. Hx [...] contain inadvertent rec ognition errors. Fredi HENNESSY [facility] 02/23/2019 docume nted in this encounter Plan of Treatment +--------+---------+ + + + | Date | Type | Specialty | Care Team | Description | +--------+---------+ + + + | 07/18/ | Office | Cardiology | Erin Limon | | 2019 | Visit | | [address] | | | | | | [address] | | | | | | [place] [address] | | | | | | [phone] | | | | | | | [...] involving | | | | | | [place] coronary | | | | | | artery of [place] | | | | | | heart, [...] + + | Coronary artery disease involving [place] coronary artery of [place] heart, angina | | presence unspecified - [...]
--- OUTSIDE RECORDS SUMMARY | ~2019-06-30 | XMS | Encounter Summary ---
Demographics + + + | Address | [address] | | | [place] [address] | + + + | Home Phone | | + + + | Preferred Language | Unknown | + + + | Marital Status | | + + + | Christianity Affiliation | 1041 | + + + | Race | Unknown | + + + | Ethnic Group | Unknown | + + + Author + + + | Author | [facility] | | | and Luisana | + + + | Organization | [facility] | | | [...] Team Providers + +------+ + | Care Shift Coordinator Name | Role | Phone | [...] + | 04/05/ | Telephone | [facility] | Fabrice Hansen | Other (requesting | | 2019 | | [facility] | DO Duarte Kan [address] | mak malik) | | | | PRIMARY CARE [address] | [address] | | | | | [address] | [address] [place], [place] | | | | | [place], [place] | [id number] | | | | | [address] | | | | | | [phone] | | | +--------+ + + + [...] | | | | | [place] [address] | | | | | | [phone] | | | | | | | | +--------+---------+ + + + documented as of this encounter Visit Diagnoses Not on filedocumented in this encounter"
--- OUTSIDE RECORDS SUMMARY | ~2019-06-30 | XMS | Encounter Summary ---
Demographics + + + | Address | [address] | | | [place] [address] | + + + | Home Phone | | + + + | Preferred Language | Unknown | + + + | Marital Status | | + + + | Restorationism Affiliation | 1041 | + + + | Race | Unknown | + + + | Ethnic Group | Unknown | + + + Author + + + | Author | [facility] | | | and Luisana | + + + | Organization | [facility] | | | and [...] Team Providers + +------+ + | Care Burner Hand Name | Role | Phone | + +------+ + | Fabrice Hansen DO | PCP | | + +------+ + Encounter Details +--------+ + + + + | Date | Type | Department | Care Team | Description | +--------+ + + + + | 02/21/ | Orders Only | [facility] | Tom Limon MD | | | 2020 | | and Pancreas GI | [address] [place] | | | | | South [address] | [address] [place], [place] | | | | | [address] | [address] | | | | | [place] | | | | | | [address] | | | | | | [phone] | | | +--------+ + + + [...] [place] | | | | | | [place] [address] | | | | | | [phone] | | | | | | | | +--------+---------+ + + + documented as of this encounter Visit Diagnoses Not on filedocumented in this encounter"
--- OUTSIDE RECORDS SUMMARY | ~2019-06-30 | XMS | Encounter Summary ---
Demographics + + + | Address | [address] | | | [place] [address] | + + + | Home Phone | | + + + | Preferred Language | Unknown | + + + | Marital Status | | + + + | Mandaen Affiliation | 1041 | + + + | Race | Unknown | + + + | Ethnic Group | Unknown | + + + Author + + + | Author | [facility] | | | and Luisana | + + + | Organization | [facility] | | [...] Team Providers + +------+ + | Care Project Management Intern Name | Role | Phone | [...] + + | 01/03/ | Telephone | [facility] | Erin Limon | Lab Results | | 2019 | | CARDIOLOGY [place]UD[place] | CARLOS Francis [address] | | | | | [address] | [address] | | | | | [address] | [place] [address] | | | | | [place] | [phone] | | | | | [address] | | | | | | [phone] | | | +--------+ + + + [...] [place] | | | | | | [place] [address] | | | | | | [phone] | | | | | | | | +--------+---------+ + + + documented as of this encounter Visit Diagnoses Not on filedocumented in this encounter"
--- OUTSIDE RECORDS SUMMARY | ~2019-06-30 | XMS | Encounter Summary ---
Demographics + + + | Address | [address] | | | [place] [address] | + + + | Home Phone | | + + + | Preferred Language | Unknown | + + + | Marital Status | | + + + | Pentecostalism Affiliation | 1041 | + + + [...] Team Providers + +------+ + | Care Weigher Alloy Name | Role | Phone | + [...] | | [address] | [address] | | | | | [place], [place] | [place] | | | | | [address] | [place] [address] | | | | | [phone] | [phone] | | | | | | | [...] [place] | | | | | | [place] [address] | | | | | | [phone] | | | | | | | [...]
--- OUTSIDE RECORDS SUMMARY | ~2019-06-30 | XMS | Encounter Summary ---
Demographics + + + | Address | [address] | | | [place] [address] | + + + | Home Phone | | + + + | Preferred Language | Unknown | + + + | Marital Status | | + + + | Yarsanism Affiliation | 1041 | + + + | Race | Unknown | + + + | Ethnic Group | Unknown | + + + Author + + + | Author | [facility] | | | and Luisana | + + + | Organization | [facility] | | | [...] Team Providers + +------+ + | Care Keno Terminal Operator Name | Role | Phone | [...] + + | 10/29/ | Telephone | [facility] | Rich Frank | Follow-up (Schedule) | | 2019 | | GASTROENTEROLOGY | MD Sylvester [address] | | | | | [address] | [place] [address] | | | | | [place] | [phone] | | | | | [address] | | | | | | [phone] | | | +--------+ + + + [...] | | | | | [place] [address] | | | | | | [phone] | | | | | | | | +--------+---------+ + + + documented as of this encounter Visit Diagnoses Not on filedocumented in this encounter"
--- OUTSIDE RECORDS SUMMARY | ~2019-06-30 | XMS | Encounter Summary ---
Demographics + + + | Address | [address] | | | [place] [address] | + + + | Home Phone [...] Team Providers + +------+ + | Care Road Machine Operator Name | Role | Phone | + +------+ + | Fabrice Hansen DO | PCP | | + +------+ + Encounter Details +--------+ + + + + | Date | Type | Department | Care Team | Description | +--------+ + + + + | 02/15/ | Orders Only | [facility] | Marshall Gutierrez, | | | 2015 | | CARDIOLOGY [place] | MD [address] | | | | | NUC MED [address] | [place] [address] | | | | | [address] | [phone] | | | | | [place], [place] | | | | | | [address] | | | | | | [phone] | | | +--------+ + + + [...] F | | | | | | [place] [address] | | | | | | [phone] | | | | | | | [...] Performed At | + + + | [facility] CARDIOLOGY Nuclear Treadmill Stress Test With | [...] Max | | | BP: 123/78. RPP: 00438. METS: 4.60. Symptoms lightheaded, nausea, | | [...] | | Marshall Gutierrez MD, FACC, FACP, [facility] | | + + + + + | Procedure Note | + + | Dex, Rad Conversion - 09/30/2018 8:[address] [facility] | | Treadmill Stress Test With [...] achieved: 95 bpm, Max BP: 123/78. RPP: 16413. METS: | | 4.60. Symptoms lightheaded, nausea, [...]
--- OUTSIDE RECORDS SUMMARY | ~2019-06-30 | XMS | Encounter Summary ---
Demographics + + + | Address | [address] | | | [place] [address] | + + + | Home Phone [...] Providers + +------+ + | Care Director Phone Name | Role | Phone | + [...] | | | | | and | [address] | [address] Phone: | | | | | obstruction, | Phone: | [phone] | | | | | unspecified | [phone] | Fax: | | | | | cholangitis | Fax: | [phone] | | | | | acuity | [phone] | | | | | | Intrahepatic [...] + | 11/11/ | Orders Only | [facility] | Brandi Love DO | Calculus of bile | | 2019 | | Internal Medicine | [address] | duct with | | | | [address] | [place] [address] | cholangitis and | | | | [address] | [phone] | obstruction, | | | | [place] | | unspecified | | | | [address] | | cholangitis acuity | | | | [phone] | | (Primary Dx); | | | [...] F | | | | | | [place] [address] | | | | | | [phone] | | | | | | | [...]
--- OUTSIDE RECORDS SUMMARY | ~2019-06-30 | XMS | Encounter Summary ---
Demographics + + + | Address | [address] | | | [place] [address] | + + + | Home Phone [...] Team Providers + +------+ + | Care Lithographic Platemaker Name | Role | Phone | + +------+ + | Fabrice Hansen DO | PCP | | + +------+ + Encounter Details +--------+ + + + + | Date | Type | Department | Care Team | Description | +--------+ + + + + | 11/04/ | Orders Only | [facility] | Conversion | | | 2018 | | CONVERSION [address]P [address] | Transaction, | | | | | [address] | Provider Unknown | | | | | [place], [place] | [phone] | | | | | [address] | | | | | | [phone] | | | +--------+ + + + [...] | | | | | [place] [address] | | | | | | [phone] | | | | | | | | +--------+---------+ + + + documented as of this encounter Visit Diagnoses Not on filedocumented in this encounter"
--- OUTSIDE RECORDS SUMMARY | ~2019-06-30 | XMS | Encounter Summary ---
Demographics + + + | Address | [address] | | | [place] [address] | + + + | Home Phone [...] Team Providers + +------+ + | Care Airport Manager Name | Role | Phone | [...] Radiology | Diagnoses | Rey, | [facility] | | Review | | | Calculus of | Meme A, | REGIONAL | | | | | bile duct | [employer] | MEDICAL | | | | | with | [address]VD | [address] | | | | | cholangitis | [place], [place] | [address] | | | | | and | [address] | [place], [place] | | | | | obstruction, | Phone: | [address] | | | | | unspecified | [phone] | Phone: | | | | | cholangitis | Fax: | [phone] | | | | | acuity | [phone] | Fax: | | | | | Procedures | | [phone] | | | | | MRI Abdomen [...] | Radiology | Diagnoses | Rey, | [facility] | | Review | | | Calculus of | Meme A, | REGIONAL | | | | | bile duct | [employer] [address] | MEDICAL | | | | | with | BLVD | [address] | | | | | cholangitis | [place], [place] | [address] | | | | | and | [address] | [place], [place] | | | | | obstruction, | Phone: | [address] | | | | | unspecified | [phone] | Phone: | | | | | cholangitis | Fax: | [phone] | | | | | acuity | [phone] | Fax: | | | | | Procedures | | [phone] | | | | | MRI Abdomen [...] + + | 03/15/ | Hospital | [facility] | Meme Le | Calculus of bile | | 2019 | Encounter | [facility] MRI 9[address] | A, [employer] [address] | duct with | | | | [address] | [place] [address] | cholangitis and | | | | [place], [place] | [phone] | obstruction, | | | | [address] | | unspecified | | | | [phone] | | cholangitis acuity | +--------+ + [...] MÉ[place]Z | | | | | | [place] [address] | | | | | | [phone] | | | | | | | [...] surgical | | | candidacy. (Based on [employer] | | [...] potential | | surgical candidacy. (Based on [employer] | | [...]
--- OUTSIDE RECORDS SUMMARY | ~2019-06-30 | XMS | Encounter Summary ---
Demographics + + + | Address | [address] | | | [place] [address] | + + + | Home Phone | | + + + | Preferred Language | Unknown | + + + | Marital Status | | + + + | Restorationism Affiliation | 1041 | + + + | Race | Unknown | + + + | Ethnic Group | Unknown | + + + Author + + + | Author | [facility] | | | and Luisana | + + + | Organization | [facility] | | | [...] Team Providers + +------+ + | Care Folder Seamer Automatic Name | Role | Phone | + [...] + + | 01/04/ | Telephone | [facility] | Robbie Ho MD | Hospital Follow-up | | 2019 | | Internal Medicine | [address] | | | | | Hospitalists [address] [place], [place] | | | | | [address]th [place], [place] | [address] | | | | | [address] | | | | | | [phone] | | | +--------+ + + + [...] | | | | | [place] [address] | | | | | | [phone] | | | | | | | | +--------+---------+ + + + documented as of this encounter Visit Diagnoses Not on filedocumented in this encounter"
--- OUTSIDE RECORDS SUMMARY | ~2019-06-30 | XMS | Encounter Summary ---
Demographics + + + | Address | [address] | | | [place] [address] | + + + | Home Phone [...] Team Providers + +------+ + | Care Riffler Tender Name | Role | Phone | + +------+ + | Fabrice Hansen DO | PCP | | + +------+ + Encounter Details +--------+ + + + + | Date | Type | Department | Care Team | Description | +--------+ + + + + | 03/20/ | Orders Only | [facility] | Conversion | | | 2016 | | CONVERSION DEP [address] | Transaction, | | | | | [address] | Provider Unknown | | | | | [place], [place] | [phone] | | | | | [address] | | | | | | [phone] | | | +--------+ + + + [...] | | | | | [place] [address] | | | | | | [phone] | | | | | | | | +--------+---------+ + + + documented as of this encounter Visit Diagnoses Not on filedocumented in this encounter"
--- OUTSIDE RECORDS SUMMARY | ~2019-06-30 | XMS | Encounter Summary ---
Demographics + + + | Address | [address] | | | [place] [address] | + + + | Home Phone [...] Team Providers + +------+ + | Care Carton And Can Supply Supervisor Name | Role | Phone | + +------+ + | Fabrice Hansen DO | PCP | | + +------+ + Reason for Visit + + + | Reason | Comments | + + + | Care Coordination | | + + + | Appointment | cancel 03/17/19 avani Guallpa for 6 mos | + + + | Imaging Only | MRI/MRCP | + + + | Nausea | | + + + Encounter Details +--------+ + + + + | Date | Type | Department | Care Team | Description | +--------+ + + + + | 03/16/ | Telephone | [facility] | Tom Limon MD | Care Coordination; | | 2019 | | and Pancreas GI | [address] | Appointment (cancel | | | | [address] | [address] [place] | 03/17/19 [place], | | | | [address] | [address] | reschedule for 6 | | | | [place] | | mos); Imaging Only | | | | [address] | | (MRI/MRCP); Nausea | | | | [phone] | | | +--------+ + + + [...] M[place] | | | | | | [place] [address] | | | | | | [phone] | | | | | | | | +--------+---------+ + + + documented as of this encounter Visit Diagnoses Not on filedocumented in this encounter"
--- OUTSIDE RECORDS SUMMARY | ~2019-06-30 | XMS | Encounter Summary ---
Demographics + + + | Address | [address] | | | [place] [address] | + + + | Home Phone | | + + + | Preferred Language | Unknown | + + + | Marital Status | | + + + | Scientologist Affiliation | 1041 | + + + | Race | Unknown | + + + | Ethnic Group | Unknown | + + + Author + + + | Author | [facility] | | | and Luisana | + + + | Organization | [facility] | | | [...] Team Providers + +------+ + | Care Woods Superintendent Name | Role | Phone | + [...] + + | 10/22/ | Telephone | [facility] | Fabrice Hansen | Results, Imaging (CT | | 2019 | | [facility] | DO Duarte Kan [address] | scan) | | | | PRIMARY CARE [address] | [facility] [address] | | | | | [address] | [address] [place], [place] | | | | | [place], [place] | [address] | | | | | [address] | | | | | | [phone] | | | +--------+ + + + [...] | | | | | [place] [address] | | | | | | [phone] | | | | | | | | +--------+---------+ + + + documented as of this encounter Visit Diagnoses Not on filedocumented in this encounter"
--- OUTSIDE RECORDS SUMMARY | ~2019-06-30 | XMS | Encounter Summary ---
Demographics + + + | Address | [address] | | | [place] [address] | + + + | Home Phone [...] Team Providers + +------+ + | Care Electroencephalograph Technician Name | Role | Phone | [...] [address] | | | | | [place], [place] | [facility] | | | | | [address] | [address] [place], [place] | | | | | [phone] | [address] | | | | | | | [...] M[place]Z | | | | | | [place] [address] | | | | | | [phone] | | | | | | | [...]
--- OUTSIDE RECORDS SUMMARY | ~2019-06-30 | XMS | Encounter Summary ---
Demographics + + + | Address | [address] | | | [place] [address] | + + + | Home Phone | | + + + | Preferred Language | Unknown | + + + | Marital Status | | + + + | Advent Affiliation | 1041 | + + + [...] Team Providers + +------+ + | Care Shipwright Apprentice Name | Role | Phone | [...] + + | 03/16/ | Telephone | [facility] | Gloria Campbell, | Results | | 2020 | | GASTROENTEROLOGY | Material [address] | | | | | [address] | | | | | | [place] | | | | | | [address] | | | | | | [phone] | | | +--------+ + + + [...] | | | | | [place] [address] | | | | | | [phone] | | | | | | | | +--------+---------+ + + + documented as of this encounter Visit Diagnoses Not on filedocumented in this encounter"
--- OUTSIDE RECORDS SUMMARY | ~2019-06-30 | XMS | Encounter Summary ---
Demographics + + + | Address | [address] | | | [place] [address] | + + + | Home Phone | | + + + | Preferred Language | Unknown | + + + | Marital Status | | + + + | Yarsanism Affiliation | 1041 | + + + | Race | Unknown | + + + | Ethnic Group | Unknown | + + + Author + + + | Author | [facility] | | | and Luisana | + + + | Organization | [facility] | | [...] Providers + +------+ + | Care Manager Business Continuity Name | Role | Phone | + +------+ + | Fabrice Hansen DO | PCP | | + +------+ + Encounter Details +--------+ + + + + | Date | Type | Department | Care Team | Description | +--------+ + + + + | 12/08/ | Orders Only | [facility] | Fabrice Hansen | | | 2018 | | [facility] | RefugiojeremiasDO [address] | | | | | PRIMARY CARE [address] | [address] | | | | | [address] | [address] [place], [place] | | | | | [place], [place] | [address] | | | | | [address] | | | | | | [phone] | | | +--------+ + + + [...] MÉ[place] | | | | | | [place] [address] | | | | | | [phone] | | | | | | | | +--------+---------+ + + + documented as of this encounter Visit Diagnoses Not on filedocumented in this encounter"
--- OUTSIDE RECORDS SUMMARY | ~2019-06-30 | XMS | Encounter Summary ---
Demographics + + + | Address | [address] | | | [place] [address] | + + + | Home Phone | | + + + | Preferred Language | Unknown | + + + | Marital Status | | + + + | Holiness Affiliation | 1041 | + + + [...] Team Providers + +------+ + | Care Vibration Engineer Name | Role | Phone | [...] Provider Unknown | | | | | [place], [place] | [phone] | | | | | [address] | | | | | | [phone] | | | +--------+ + + + [...] | | | | | [place] [address] | | | | | | [phone] | | | | | | | | +--------+---------+ + + + documented as of this encounter Visit Diagnoses Not on filedocumented in this encounter"
--- OUTSIDE RECORDS SUMMARY | ~2019-06-30 | XMS | Encounter Summary ---
Demographics + + + | Address | [address] | | | [place] [address] | + + + | Home Phone [...] Team Providers + +------+ + | Care Doctor Of Podiatric Medicine Name | Role | Phone | + +------+ + PCP | Unavailable | + +------+ + Encounter Details +--------+ + + + + | Date | Type | Department | Care Team | Description | +--------+ + + + + | 03/03/ | Hospital | [facility] | Prabhjot, | | | 2001 - | Encounter | [facility] | MD Bear [address] [place] [address] | | | | | CARDIAC TELEMETRY | [address] [place] | | | 03/09/ | | [address] | [address] | | | 2001 | | [place] | | | | | | [address] | [place] | | | | | [phone] | | | +--------+ + + + [...] M[place] | | | | | | [place] [address] | | | | | | [phone] | | | | | | | | +--------+---------+ + + + documented as of this encounter Visit Diagnoses Not on filedocumented in this encounter"
--- OUTSIDE RECORDS SUMMARY | ~2019-06-30 | XMS | Encounter Summary ---
Demographics + + + | Address | [address] | | | [place] [address] | + + + | Home Phone | | + + + | Preferred Language | Unknown | + + + | Marital Status | | + + + | Sikh Affiliation | 1041 | + + + [...] Team Providers + +------+ + | Care Advertising Intern Name | Role | Phone | + +------+ + | Fabrice Hansen DO | PCP | | + +------+ + Encounter Details +--------+ + + + + | Date | Type | Department | Care Team | Description | +--------+ + + + + | 11/16/ | Orders Only | [facility] | Breann Maria PA | Gall stones, common | | 2019 | | and Pancreas GI | [address], [place] | bile duct; | | | | [address] | [address] [place] | Choledochoduodenal | | | | [address] | [address] | fistula | | | | [place] | | | | | | [address] | | | | | | [phone] | | | +--------+ + + + [...] [place] | | | | | | [place] [address] | | | | | | [phone] | | | | | | | [...]
--- OUTSIDE RECORDS SUMMARY | ~2019-06-30 | XMS | Encounter Summary ---
Demographics + + + | Address | [address] | | | [place] [address] | + + + | Home Phone [...] Providers + +------+ + | Care Advertising Account Executive Name | Role | Phone | + [...] + + | 11/18/ | Telephone | [facility] | Meme Le | Marylou (coordinate | | 2019 | | GASTROENTEROLOGY | A, TRIALS MANAGER [address] | care) | | | | [address] | [place] [address] | | | | | [place], [place] | [phone] | | | | | [address] | | | | | | [phone] | | | +--------+ + + + [...] [place] | | | | | | [place] [address] | | | | | | [phone] | | | | | | | | +--------+---------+ + + + documented as of this encounter Visit Diagnoses Not on filedocumented in this encounter"
--- OUTSIDE RECORDS SUMMARY | ~2019-06-30 | XMS | Encounter Summary ---
Demographics + + + | Address | [address] | | | [place] [address] | + + + | Home Phone [...] Team Providers + +------+ + | Care Dialysis Biomed Technician Name | Role | Phone | + +------+ + | Filemon Roy MD | PCP | | + +------+ + Encounter Details +--------+ + + + + | Date | Type | Department | Care Team | Description | +--------+ + + + + | 03/13/ | Hospital | [facility] | Conversion | Atherosclerosis of | | 2016 | Encounter | [facility]ENTER | Transaction, | [place] coronary | | | | CLINICAL DECISION | Provider Unknown | artery of [place] | | | | [address] | [phone] | heart without angina | | | | [place], [place] | | pectoris | | | | [address] | [place] Gutierrez MD | | | | | [phone] | [address] | | | | | | [place] [address] | | | | | | [phone] | | | | | | | [...] + + + | Blood Pressure | 130/60 | 03/13/2015 3:05 PM | | | | | PST | | + + + + + | Pulse | 63 | 03/13/2015 3:05 PM | | | | | PST | | + + + + + | Temperature | 36.5 C (97.7 F) | 03/13/2015 3:05 PM | | | | | PST | | + + + + + | Respiratory Rate | 15 | 03/13/2015 3:05 PM | | | | | PST | | + + + + + | Oxygen Saturation | - | - | | + + + + + | Inhaled Oxygen | - | - | | | Concentration | | | | + + + + + | Weight | 62.6 kg (138 lb) | 03/13/2015 3:05 PM | | | | | PST | | + + + + + | Height | 162.6 cm (5' 4") | 03/13/2015 3:05 PM | | | | | PST | | + + + + + | Body Mass Index | 23.69 | 03/13/2015 3:05 PM | | | | | PST [...] documented as of this encounter Progress Notes Conversion Transaction, Provider Unknown - 03/13/2015 2:59 PM PSTFormatting of this note m ight be different from the original. Nurse Progress Note by Evelina James RN at 03/13/151458 Author: Evelina James RN Service: (none) Author Type: Registered Nurse Filed: 03/13/151458 Date of Service: 03/13/151458 Status: Signed Vp Human Resources: Evelina James RN (Registered Nurse) Pt discharge instructions given. Opportunity given to ask questions, no questions at this [place]. Pt denies pain. Pt discharge home/self care; spouse to transport home. Evelina James RN onver zaida Transaction, Provider Unknown - 03/13/2015 1:41 PM PST Case Management by ANASTASIA Acosta LICSW at 03/13/15 1341 Author: ANASTASIA Acosta LICSW Service: (none) Author Type: Retail Sales Advisor Filed: 03/13/15 1343 Date of Service: 03/13/151340 Status: Signed Vp Human Resources: ANASTASIA Acosta LICSW (Retail Sales Advisor) Discharge planning: CM spoke with the lead RN regarding discharge needs. Per their report , they did not identify needs and feel that the pt does not need to be seen by CM at this ti ok. I encouraged them to contact CM by phone at [phone]. onver zaida Transaction, Provider Unknown - 03/13/2015 11:19 AM PST Progress Notes by Raf Nguyen RPH at 03/13/15 5119 Author: Raf Nguyen RPH Service: (none) Author Type: Pharmacist Filed: 03/13/15 1119 Date of Service: 03/13/151118 Status: Signed Vp Human Resources: Raf Nguyen RPH (Pharmacist) Clinical Pharmacy Note: Renal Monitoring [address] 69 y.o. female Ht Readings from Last 1 Encounters: 03/13/15 1.626 m (5' 4") Wt Readings from Last 1 Encounters: 03/13/15 62.596 kg (138 lb) CREATININE Date Value Ref Range Status 03/13/2015 0.86 0.50 - 1.00 mg/dL Final Comment: Testing performed at [facility];[address] [place] [address];[place] [address] CREATININE: 0.86 (03/13/15 0842) Estimated creatinine clearance - 54.1 mL/min Pharmacy dosing for renal function per Dr. Orlando. Currently, there are no medications needing to be adjusted. Pharmacy will continue to monit or for changes in medication orders and in renal function and adjust accordingly. Raf Nguyen RPh 03/13/2015 11:19 AM docume nted in this encounter Plan of Treatment +--------+---------+ + + + | Date | Type | Specialty | Care Team | Description | +--------+---------+ + + + | 07/18/ | Office | Cardiology | Erin Limon | | | 2019 | Visit | | [address] | | | | | | [address] | | | | | | [place] [address] | | | | | | [phone] | | | | | | | | +--------+---------+ + + + documented as of this encounter Procedures + +--------+ + + + | Procedure Name | Priori | Date/Time | Associated Diagnosis | Comments | | | ty | | | | + +--------+ + + + | ECG 12 LEAD | Routin | 03/13/2015 | | Results for this | | | e | 11:05 AM | | procedure are in the | | | | PST | | results section. | + +--------+ + + + | EXTERNAL LAB: CBC | Routin | 03/13/2015 | | Results for this | | | e | 8:42 AM | | procedure are in the | | | | PST | | results section. | + +--------+ + + + | BASIC METABOLIC | Routin | 03/13/2015 | | Results for this | | PANEL | e | 8:42 AM | | procedure are in the | | | | PST | | results section. | + +--------+ + + + documented in this encounter Results ECG 12 lead (03/13/2015 11:05 AM PST) + + + + + + | Component | Value | Ref Range | Performed | Pathologist | | | | | At | Signature | + + + + + + | DIAGNOSIS: | Sinus | | EXTERNAL | | | | bradycardiaInferior | | LAB | | | | infarct , age | | | | | | undeterminedT wave | | | | | | abnormality, consider | | | | | | anterolateral | | | | | | ischemiaAbnormal ECGWhen | | | | | | compared with ECG of | | | | | | 15-FEB-2015 | | | | | | 11:12,Inferior infarct | | | | | | is now PresentConfirmed | | | | | | by Jose Herrera ([id number]) | | | | | | on 03/13/2015 8:18:19 PM | | | | + + + + + + + + | Specimen | + + | | + + + + + | Narrative | Performed At | + + + | Historically converted procedure from [facility] environment | EXTERNAL LAB | + + + + +---------+ + + | Performing | Address | City/State/Zipcode | Phone Number | | Organization | | | | + +---------+ + + | EXTERNAL LAB | | | | + +---------+ + + External Lab: CBC (03/13/2015 8:42 AM PST) + + + + + + | Component | Value | Ref Range | Performed | Pathologist | | | | | At | Signature | + + + + + + | WBC | 9.69Comment: Testing | 3.80 - 11.00 | EXTERNAL | | | | performed at [facility];[address] | K/uL | LAB | | | | [address];[place] | | | | | | [address] | | | | + + + + + + | Red Blood | 4.25Comment: Testing | 3.70 - 5.10 | EXTERNAL | | | Cells | performed at [facility];[address] | M/uL | LAB | | | Counted | [address];[place] | | | | | | [address] | | | | + + + + + + | Hemoglobin | 14.0Comment: Testing | 11.3 - 15.5 | EXTERNAL | | | | performed at [facility];[address] | g/dL | LAB | | | | [address];[place] | | | | | | [address] | | | | + + + + + + | Hematocrit, | 41.9Comment: Testing | 34.0 - 46.0 % | EXTERNAL | | | POC | performed at [facility];[address] | | LAB | | | | [address];[place] | | | | | | [address] | | | | + + + + + + | MCV | 98.6Comment: Testing | 80.0 - 100.0 fl | EXTERNAL | | | | performed at [facility];[address] | | LAB | | | | [address];[place] | | | | | | [address] | | | | + + + + + + | MCH | 32.9Comment: Testing | 27.0 - 34.0 pg | EXTERNAL | | | | performed at [facility];[address] | | LAB | | | | [address];[place] | | | | | | [address] | | | | + + + + + + | MCHC | 33.4Comment: Testing | 32.0 - 35.5 | EXTERNAL | | | | performed at [facility];[address] | g/dL | LAB | | | | [address];[place] | | | | | | [address] | | | | + + + + + + | RDW-CV | 45.5Comment: Testing | 37 - 53 fl | EXTERNAL | | | | performed at [facility];[address] | | LAB | | | | [address];[place] | | | | | | [address] | | | | + + + + + + | Platelet | 203Comment: Testing | 150 - 400 K/uL | EXTERNAL | | | Count | performed at [facility];[address] | | LAB | | | Plasma | [address];[place] | | | | | | [address] | | | | + + + + + + | MPV | 9.0Comment: Testing | fl | EXTERNAL | | | | performed at [facility];[address] | | LAB | | | | [address];[place] | | | | | | [address] | | | | + + + + + + | Differentia | AUTOMATEDComment: | | EXTERNAL | | | l Type | Testing performed at | | LAB | | | | [facility];[address] | [address];[place] [address] | | | | + + + + + + | % Segmented | 65.67Comment: Testing | % | EXTERNAL | | | | performed at [facility];[address] | | LAB | | | Neutrophils | [address];[place] | | | | | | [address] | | | | + + + + + + | % | 22.09Comment: Testing | % | EXTERNAL | | | Lymphocytes | performed at [facility];[address] | | LAB | | | | [address];[place] | | | | | | [address] | | | | + + + + + + | % Monocytes | 6.29Comment: Testing | % | EXTERNAL | | | | performed at [facility];[address] | | LAB | | | | [address];[place] | | | | | | [address] | | | | + + + + + + | % | 5.05Comment: Testing | % | EXTERNAL | | | Eosinophils | performed at [facility];[address] | | LAB | | | | [address];[place] | | | | | | [address] | | | | + + + + + + | % Basophils | 0.90Comment: Testing | % | EXTERNAL | | | | performed at [facility];[address] | | LAB | | | | [address];[place] | | | | | | [address] | | | | + + + + + + | Absolute | 6.36Comment: Testing | 1.90 - 7.40 | EXTERNAL | | | Segmented | performed at [facility];[address] | K/uL | LAB | | | Neutrophils | [address];[place] | | | | | | [address] | | | | + + + + + + | Absolute | 2.14Comment: Testing | 1.00 - 3.90 | EXTERNAL | | | Lymphocytes | performed at [facility];[address] | K/uL | LAB | | | | [address];[place] | | | | | | [address] | | | | + + + + + + | Absolute | 0.61Comment: Testing | 0.00 - 0.80 | EXTERNAL | | | Monocytes | performed at [facility];[address] | K/uL | LAB | | | | [address];[place] | | | | | | [address] | | | | + + + + + + | Absolute | 0.49Comment: Testing | 0.00 - 0.50 | EXTERNAL | | | Eosinophils | performed at [facility];[address] | K/uL | LAB | | | | [address];[place] | | | | | | [address] | | | | + + + + + + | Absolute | 0.09Comment: Testing | 0.00 - 0.10 | EXTERNAL | | | Basophils | performed at [facility];[address] | K/uL | LAB | | | | [address];[place] | | | | | | [address] | | | | + + + + + + + + | Specimen | + + | Blood specimen | | (specimen) | + + + +---------+ + + | Performing | Address | City/State/Zipcode | Phone Number | | Organization | | | | + +---------+ + + | EXTERNAL LAB | | | | + +---------+ + + Basic Metabolic Panel (03/13/2015 8:42 AM PST) + + + + + + | Component | Value | Ref Range | Performed | Pathologist | | | | | At | Signature | + + + + + + | Na | 142Comment: Testing | 135 - 143 | EXTERNAL | | | | performed at [facility];[address] | mmol/L | LAB | | | | [address];[place] | | | | | | [address] | | | | + + + + + + | K | 4.1Comment: SLT | 3.5 - 4.9 | EXTERNAL | | | | HEMOLYSISTesting | mmol/L | LAB | | | | performed at [facility];[address] | | | | | | [address];[place] | | | | | | [address] | | | | + + + + + + | Cl | 106Comment: Testing | 99 - 109 mmol/L | EXTERNAL | | | | performed at [facility];[address] | | LAB | | | | [address];[place] | | | | | | [address] | | | | + + + + + + | CO2 | 30Comment: Testing | 23 - 32 mmol/L | EXTERNAL | | | | performed at [facility];[address] | | LAB | | | | [address];[place] | | | | | | [address] | | | | + + + + + + | Anion Gap | 10Comment: Testing | 5 - 20 mmol/L | EXTERNAL | | | | performed at [facility];[address] | | LAB | | | | [address];[place] | | | | | | [address] | | | | + + + + + + | Glucose, | 84Comment: Testing | 65 - 99 mg/dL | EXTERNAL | | | Fasting | performed at [facility];[address] | | LAB | | | | [address];[place] | | | | | | [address] | | | | + + + + + + | BUN | 16Comment: Testing | 8 - 25 mg/dL | EXTERNAL | | | | performed at [facility];[address] | | LAB | | | | [address];[place] | | | | | | [address] | | | | + + + + + + | Creatinine | 0.86Comment: Testing | 0.50 - 1.00 | EXTERNAL | | | | performed at [facility];[address] | mg/dL | LAB | | | | [address];[place] | | | | | | [address] | | | | + + + + + + | BUN/Creatin | 19Comment: Testing | | EXTERNAL | | | ine Ratio | performed at [facility];[address] | | LAB | | | | [address];[place] | | | | | | [address] | | | | + + + + + + | Calcium | 8.5Comment: Testing | 8.5 - 10.5 | EXTERNAL | | | | performed at [facility];[address] | mg/dL | LAB | | | | [address];[place] | | | | | | [address] | | | | + + + + + + | Estimated | >60Comment: GFR <60: | mL/min/1.73m2 | EXTERNAL | | | GFR | CHRONIC KIDNEY DISEASE, | | LAB | | | | IF FOUND OVER A 3 MONTH | | | | | | PERIOD.GFR <15: KIDNEY | | | | | | FAILURE.FOR | | | | | | AMERICANS, MULTIPLY THE | | | | | | CALCULATED GFR BY | | | | | | 1.210.Testing performed | | | | | | at [facility];[address] [place] [address] | | | | | | [place] [address] | | | | + + + [...] + | Diagnosis | + + | Atherosclerosis of [place] coronary artery of [place] heart without angina pectoris | + + documented in this encounter
--- OUTSIDE RECORDS SUMMARY | ~2019-06-30 | XMS | Encounter Summary ---
Demographics + + + | Address | [address] | | | [place] [address] | + + + | Home Phone [...] Team Providers + +------+ + | Care Exhaust Emissions Automotive Technician Name | Role | Phone | [...] | Radiology | Diagnoses | Rey, | [facility] | | Review | | | Calculus of | Meme A, | REGIONAL | | | | | bile duct | VENEER MARKER [address] | MEDICAL | | | | | with | BLVD | C[address] | | | | | cholangitis | [place], [place] | [address] | | | | | and | [address] | [place], [place] | | | | | obstruction, | Phone: | [address] | | | | | unspecified | [phone] | Phone: | | | | | cholangitis | Fax: | [phone] | | | | | acuity | [phone] | Fax: | | | | | Procedures | | [phone] | | | | | MRI Abdomen [...] | +--------+ + + + + | 01/12/ | Orders Only | [facility] | Meme Le | Calculus of bile | | 2019 | | GASTROENTEROLOGY | A, VENE[address]ER [address] | duct with | | | | [address] | [place] [address] | cholangitis and | | | | [place], [place] | [phone] | obstruction, | | | | [address] | | unspecified | | | | [phone] | | cholangitis acuity | | | | | | (Primary Dx) | +--------+ + [...] [address] | | | | | | [place] [address] | | | | | | [phone] | | | | | | | [...] surgical | | | candidacy. (Based on [employer] [place] | | [...] + | Dex, Rad Results In - 03/16/2019 8:55 AM PST | | MR [...] potential | | surgical candidacy. (Based on [employer] | | [...]
--- OUTSIDE RECORDS SUMMARY | ~2019-06-30 | XMS | Encounter Summary ---
Demographics + + + | Address | [address] | | | [place] [address] | + + + | Home Phone | | + + + | Preferred Language | Unknown | + + + | Marital Status | | + + + | Confucianist Affiliation | [id number] | + + + | Race | Unknown | + + + | Ethnic Group | Unknown | + + + Author + + + | Author | [facility] | | | and [place] | + + + | Organization | [facility] | | [...] Team Providers + +------+ + | Care Asset Protection Agent Name | Role | Phone | + +------+ + | Fabrice Hansen DO | PCP | | + +------+ + Encounter Details +--------+ + + + + | Date | Type | Department | Care Team | Description | +--------+ + + + + | 04/15/ | Orders Only | [facility] | Erin Limon | | | 2018 | | [address] | [address] | | | | | [address] | [address] | | | | | [address] | [place] [address] | | | | | [address] | [phone] | | | | | [phone] | | | +--------+ + + + [...] F | | | | | | [place] [address] | | | | | | [phone] | | | | | | | [...] INDICATIONS CAD, ASC AO aneurysm, HX of SD, HX of CABG, | | | COPD [...] MV A Zen: 0.79 m/s MV Dec Sac: 2.67 m/s2 | | | MV DecT: [...] TR Vmax: 2.06 m/s | | | Scientific Advisor: PREET Authenticated by: [place] Gutierrez MD, FACC, FACP, | | | FASNC Report Date/Time: 04-17-2017 9:33:30 | | + + + + + | Procedure Note | + + | Dex, Rad Conversion - 09/30/2018 3:02 PM PDT Patient Name: Kailash LEMUS of | | : 1945 Performing Physician: [place] Gutierrez MD, [facility], | | FACP, | | FASNC INDICATIONS--------- | | --CAD, ASC AO aneurysm, HX of SD, HX of CABG, COPD CONCLUSIONS 1. Overall [...] (A-L): 23.34 ml/m2LAAs A2C: 17.23 | | [id number] A-L A2C: 50.02 mlLALs A2C: 5.04 cmLAAs A4C: 13.15 px2CQOUJ A-L A4C: | | 30.62 mlLAESV MOD A4C: 27.81 mlLALs A4C: 4.79 cmRAAs: 14.19 cg4DDLIB A-L: 36.36 | | mlRAESV MOD: 33.98 mlRALs: 4.70 cmAo Diam: 3.29 cmAo/LA: 0.84LA Diam: 3.92 | | cmLA/Ao: 1.18TAPSE: 2.11 cmAV Env.Ti: 290.65 msAV maxP.30 mmHgAV meanPG: | | 6.30 mmHgAV Vmax: 1.44 m/Yamila Vmean: 1.23 m/Yamila VTI: 35.84 cmAVA Vmax: 2.15 | | cm2AVA (VTI): 2.08 lm1BTGK Vmax: 0.00 cm2/m2AVAI (VTI): 0.00 cm2/m2LVOT Env.Ti: | | 336.79 msLVOT maxP.83 mmHgLVOT meanP.19 mmHgLVSI Dopp: 43.55 ml/m2LVSV | | Dopp: 74.90 mlLVOT Vmax: 0.97 m/sLVOT Vmean: 0.70 m/sLVOT VTI: 23.63 cmMV A Zen: | | 0.79 m/sMV Dec Sac: 2.67 m/s2MV DecT: 238.06 msMV E Zen: 0.63 m/sMV E/A | | Ratio: 0.79E/E' Av.03E' Av.06 m/sE/E' Lat: 8.56E/E' Sept: 12.11E' | | Lat: 0.07 m/sE' Sept: 0.05 m/sPAEDP: 7.32 mmHgPRend P.32 mmHgPRend Vmax: | | 0.76 m/sPV maxP.53 mmHgPV Vmax: 1.06 m/sRAP: 5 mmHgRV S': 0.08 m/sRVSP: | | 22.04 mmHgTR maxP.04 mmHgTR Vmax: 2.06 m/s Scientific Advisor: PREETAuthenticated by: | | [place] Gutierrez MD, [...] A Zen: 0.79 m/s | |MV Dec Sac: 2.67 m/s2 | |MV DecT: 238.06 ms [...] |TR Vmax: 2.06 m/s | | | |Scientific Advisor: RK | |Authenticated by: [place] Gutierrez MD, [...]
--- OUTSIDE RECORDS SUMMARY | ~2019-06-30 | XMS | Encounter Summary ---
Demographics + + + | Address | [address] | | | [place] [address] | + + + | Home Phone | | + + + | Preferred Language | Unknown | + + + | Marital Status | | + + + | Rastafari Affiliation | 1041 | + + + | Race | Unknown | + + + | Ethnic Group | Unknown | + + + Author + + + | Author | [facility] | | | and [place] | + + + | Organization | [facility] | [...] Team Providers + +------+ + | Care Theology Teacher Name | Role | Phone | [...] | Radiology | Diagnoses | Rey, | [facility] | | | | | Epigastric | Meme A, | [address] | | | | | abdominal | PRODUCT SUPPORT SPECIALIST [address] | | | | | pain | BLVD | [place], [place] | | | | | History of | [place] | [address] | | | | | cholecystect | [address] | Phone: | | | | | charleen | Phone: | [phone] | | | | | Procedures | [phone] | Fax: | | | | | MRI Abdomen | Fax: | [phone] | | | | | w wo | [phone] | | | | | | Contrast [...] | | | unspecified | [address] | [place], [place] | | | | | type | [address] | [address] Phone: | | | | | | [place], [place] | [phone] | | | | | | [address] | Fax: | | | | | | Phone: | [phone] | | | | | | [phone] | | | | | | | Fax: | | | | | | | [phone] | | + + + + + + + Encounter Details +--------+---------+ + + + | Date | Type | Department | Care Team | Description | +--------+---------+ + + + | 11/02/ | Office | [facility] | Fabrice Hansen | Epigastric abdominal | | 2019 | Visit | GASTROENTEROLOGY | DO Duarte Kan | pain (Primary Dx); | | | | [address] | [facility] | Elevated LFTs; | | | | [place], [place] | [address] [place] | History of | | | | [address] | [address] | cholecystectomy | | | | [phone] | | | | | | | Meme Le | | | | | | A, PRODUCT SUPPORT SPECIALIST [address] | | | | | | [place] [address] | | | | | | [phone] | | | | | | | [...] 1 tablet by mouth every morning before [facility]. (Patient not taking: Reported on 11/02/2018) 90 [...] Asthma Cholelithiasis COPD (chronic obstructive pulmonary disease) ([facility]) 10/18/2012 Coronary artery disease Depression Disorder of thyroid GERD (gastroesophageal reflux disease) Heart attack ([facility]) Heart disease High cholesterol HTN (hypertension) 10/18/2012 Irritable bowel syndrome Joint pain Neuromuscular disorder ([facility]) Visual disturbance glasses Past Surgical History: Procedure Laterality Date APPENDECTOMY CARDIAC CATHERIZATION CARDIOVASCULAR SURGERY TRIPLE BYPASS CARPAL TUNNEL RELEASE Right 10/18/2012 Procedure: CARPAL TUNNEL RELEASE; Surgeon: Yung Gomez MD; Location: [facility] MAIN OR ; Service: Neurosurgery; Laterality: Right; SECTION CHOLECYSTECTOMY COLONOSCOPY 07/2017 CORONARY ARTERY BYPASS GRAFT 2001 [place] HYSTERECTOMY OTHER SURGICAL HISTORY OTHER SURGICAL HISTORY CATARACT EXTRACTION OTHER SURGICAL HISTORY UNLISTED PROCEDURE ARTHROSCOPY - bilateral thumbs OTHER SURGICAL HISTORY 08/03/2017 COLONOSCOPY WITH EGD - Procedure: COLONOSCOPY W/ EGD; Surgeon: Rich Frank MD; L ocation: [facility] END[facility]COPY; Service: Gastroenterology; Laterality: [...] ulcer disease, gastroe sophageal reflux, gastritis, pancreatitis, [place], pericarditis, ruptured aortic aneurysm, early appendicitis, gastroenteritis, [...] any questions or concerns. Meme Le NP [facility] 11/02/2018 10:26 Dictated using [employer] translation software. Edited at time of bottle filler however sound alike bottle filler errors may still be prese nt. Please [...] [address] | | | | | | [place] [address] | | | | | | [phone] | | | | | | | [...] | | potential surgical candidacy. (Based on [employer] | | [employer] and [...] | | potential surgical candidacy. (Based on [employer] | | and [place] [...]
--- OUTSIDE RECORDS SUMMARY | ~2019-06-30 | XMS | Encounter Summary ---
Demographics + + + | Address | [address] | | | [place] [address] | + + + | Home Phone [...] Team Providers + +------+ + | Care Milk Receiver Name | Role | Phone | + [...] | | [address] | I, Fitness Teacher | duct carcinoma (HCC) | | | | [place] | | ; Hepatic | | | | [address] | | lithiasis; Acute | | | | [phone] | | abdomen | +--------+ + + [...] MÉNDEZ | | | | | | [place] [address] | | | | | | [phone] | | | | | | | [...] | | | | | performed at [facility];[address] | | [address] | | | | | | [address];[place] [address] | | | | | | | [...] | [address] | [place] | [phone] | | [facility] | Blvd[address] | [address] | | | LABORATORY | | | | + + + + + | REFERENCE LAB | [address] | [place] | | | [facility] | Blvd[address] | [address] | | | LABORATORY | | | [...] | | | | | performed at [facility];[address] | | | | | | [facility] | | | | | | [facility] [address] | | | | | | | | | | + + + + + + + + | Specimen | + + | Blood | + + + + + + + | Performing | Address | City/State/Zipcode | Phone Number | | Organization | | | | + + + + + | REFERENCE LAB | [address] [place] [address] | [place] | [phone] | | [facility] | Blvd[address] | [address] | | | LABORATORY | | | | + + + + + | REFERENCE LAB | [address] [facility] | [place] | | | [facility] | Blvd[address] | [address] | | | LABORATORY | | | [...] [facility] | | | | Blvd;[place] [address] | | LABORATORY | | + + + + + + + + | Specimen | + + | Blood | + + + + + + + | Performing | Address | City/State/Zipcode | Phone Number | | Organization | | | | + + + + + | REFERENCE LAB | [address] | [place] | [phone] | | [facility] | Blvd. | [address] | | | LABORATORY | | | | + + + + + | REFERENCE LAB | [address] | [place] | | | [facility] | Blvd. | [address] | | | LABORATORY | | | [...] | | | | | TCL;[address] [facility] | | | | | | Blvd;[place] [address] | | | | | | | [...] | [address] [facility] | [place] | [phone] | | [facility] | Bl[address] | [address] | | | LABORATORY | | | | + + + + + | REFERENCE LAB | [address] [facility] | [place] | | | [facility] | Blvd. | [address] | | | LABORATORY | | | [...]
--- OUTSIDE RECORDS SUMMARY | ~2019-06-30 | XMS | Encounter Summary ---
Demographics + + + | Address | [address] | | | [place] [address] | + + + | Home Phone [...] Team Providers + +------+ + | Care Bench Assembler Operator Name | Role | Phone | [...] + + | 11/12/ | Telephone | [place] | Freddie Walton MD | Hospital Follow-up | | 2019 | | Internal Medicine | [address] [facility] | | | | | Hospitalists [address] | [place], [place] | | | | | [address] [place], [place] | [address] | | | | | [address] | | | | | | [phone] | | | +--------+ + + + [...] MÉNDEZ | | | | | | [facility] [address] | | | | | | [phone] | | | | | | | | +--------+---------+ + + + documented as of this encounter Visit Diagnoses Not on filedocumented in this encounter"
--- OUTSIDE RECORDS SUMMARY | ~2019-06-30 | XMS | Encounter Summary ---
Demographics + + + | Address | [address] | | | [place] [address] | + + + | Home Phone | | + + + | Preferred Language | Unknown | + + + | Marital Status | | + + + | Judaism Affiliation | 1041 | + + + | Race | Unknown | + + + | Ethnic Group | Unknown | + + + Author + + + | Author | [facility] | | | and [place] | + + + | Organization | [facility] | | | [...] Team Providers + +------+ + | Care Supervisor Policy Change Clerks Name | Role | Phone | + [...] Provider Unknown | | | | | [place], [place] | [phone] | | | | | [address] | | | | | | [phone] | | | +--------+ + + + [...] | | | | | [place] [address] | | | | | | [phone] | | | | | | | | +--------+---------+ + + + documented as of this encounter Visit Diagnoses Not on filedocumented in this encounter"
--- OUTSIDE RECORDS SUMMARY | ~2019-06-30 | XMS | Encounter Summary ---
Demographics + + + | Address | [address] | | | [place] [address] | + + + | Home Phone | | + + + | Preferred Language | Unknown | + + + | Marital Status | | + + + | Faith Affiliation | 1041 | + + + [...] Team Providers + +------+ + | Care Smoke Tester Name | Role | Phone | + [...] + + | 03/16/ | Telephone | [facility] | Gloria Campbell, | Results | | 2020 | | GASTROENTEROLOGY | Fruit Cutter | | | | | [address] | | | | | | [place] | | | | | | [address] | | | | | | [phone] | | | +--------+ + + + [...] | | | | | [place] [address] | | | | | | [phone] | | | | | | | | +--------+---------+ + + + documented as of this encounter Visit Diagnoses Not on filedocumented in this encounter"
--- OUTSIDE RECORDS SUMMARY | ~2019-06-30 | XMS | Encounter Summary ---
Demographics + + + | Address | [address] | | | [place] [address] | + + + | Home Phone | | + + + | Preferred Language | Unknown | + + + | Marital Status | | + + + | Jew Affiliation | 1041 | + + + | Race | Unknown | + + + | Ethnic Group | Unknown | + + + Author + + + | Author | [facility] | | | and [place] | + + + | Organization | [facility] | | [...] Team Providers + +------+ + | Care Shop Steward Name | Role | Phone | + +------+ + | Filemon Roy MD | PCP | | + +------+ + Encounter Details +--------+ + + + + | Date | Type | Department | Care Team | Description | +--------+ + + + + | 04/03/ | Hospital | [facility] | Conversion | Dizziness | | 2016 | Encounter | [facility] | Transaction, | | | | | [address] | Provider Unknown | | | | | [place], [place] | [phone] | | | | | [address] | | | | | | [phone] | | | +--------+ + + + [...] MÉNDEZ | | | | | | [place] [address] | | | | | | [phone] | | | | | | | | +--------+---------+ + + + documented as of this encounter Procedures + +--------+ + + + | Procedure Name | Priori | Date/Time | Associated Diagnosis | Comments | | | ty | | | | + +--------+ + + + | CT ANGIOGRAM CHEST W | Routin | 04/03/2015 | | Results for this | | CONTRAST | e | 8:00 AM | | procedure are in the | | | | PST | | results section. | + +--------+ + + + documented in this encounter Results CT Angiogram Chest W Contrast (04/03/2015 8:00 AM PST) + + | Specimen | + + | | + + + + + | Impressions | Performed At | + + + | 1. Mild fusiform ectasia of the ascending aorta measuring up to | | | 4.1 cm AP x 3.9 cm transverse involving the proximal to mid ascending | | | aorta. 2. No evidence of dissection or pulmonary embolus. 3. 3 | | | mm pulmonary nodule subpleural posterior right upper lobe. If the | | | patient has no risk factors for lung malignancy, no further follow-up | | | is recommended. With risk factors, one-year follow-up CT is | | | recommended. 4. 4 mm infiltrative nodule in the anterior right | | | upper lobe, nonspecific, probably inflammatory. Same recommendations | | | as for #3. 5. CABG. | | + + + + + + | Narrative | Performed At | + + + | HISTORY: Dilated ascending aorta on color. COMPARISON: | | | Echocardiogram report 02/15/15. Chest x-ray 07/14/01. Coronary | | | arteriogram 03/13/15. TECHNIQUE: 5-mm axial CT images of the | | | chest were acquired without intravenous contrast. Subsequently axial | | | 0.625 mm arterial phase images were acquired through the chest | | | according to a CT angiography protocol. Multiplanar CT angiographic | | | MIP reconstructions were performed from the arterial phase data set. | | | 3-D reconstructions were performed using the [employer] 3-D software | | | and sent to PACS. Oral Contrast: None IV contrast: 100 mL IsoVue | | | 370 FINDINGS: Noncontrast images show mild centrilobular | | | emphysematous change in the upper lung zones. 3 mm pulmonary nodule | | | posterior subpleural right upper lobe sequence 8 image 13. Subtle 4 mm | | | infiltrative density in the anterolateral right apex on the same | | | image. Minimal strandy change in the posterior right lung base | | | consistent with atelectasis. Median sternotomy. Minimal aortic and | | | coronary arterial calcification. Clips in the gallbladder fossa. | | | CTA images of the chest again shows median sternotomy with CABG. | | | Images were nongated, thus evaluation of the coronary arteries is | | | limited. See coronary angiogram 03/13/15. Ascending aorta measures | | | a maximum of 4.1 cm AP x 3.9 cm transverse on the axial images. | | | Ectasia of the ascending aorta, without defined aneurysm. No | | | dissection. Trifurcation unremarkable. Visualized common carotid, | | | right innominate artery, bilateral subclavian arteries unremarkable. | | | Beam hardening from the adjacent right subclavian vein limits | | | evaluation of the right subclavian artery. Descending thoracic | | | aorta with minimal soft atheromatous change. Included portion of the | | | celiac artery unremarkable. Cardiac chambers are normal in size. | | | Pulmonary arteries unremarkable, without evidence of embolus. Bone | | | windows show moderate spondylotic changes of the spine. | | + + + + + | Procedure Note | + + | Dex, Rad Conversion - 09/23/2018 10:37 AM PDT HISTORY:Dilated ascending aorta on | | color. COMPARISON:Echocardiogram report 02/15/15. Chest x-ray 07/14/01. Coronary | | arteriogram 03/13/15. TECHNIQUE:5-mm axial CT images of the chest were acquired without | | intravenous contrast. Subsequently axial 0.625 mm arterial phase images were acquired | | through the chest according to a CT angiography protocol. Multiplanar CT angiographic | | MIP reconstructions were performed from the arterial phase data set. 3-D | | reconstructions were performed using the [employer] 3-D software and sent to PACS. Oral | | Contrast: NoneIV contrast: 100 mL IsoVue 370 FINDINGS:Noncontrast images show mild | | centrilobular emphysematous change in the upper lung zones. 3 mm pulmonary nodule | | posterior subpleural right upper lobe sequence 8 image 13. Subtle 4 mm infiltrative | | density in the anterolateral right apex on the same image. Minimal strandy change in the | | posterior right lung base consistent with atelectasis. Median sternotomy. Minimal | | aortic and coronary arterial calcification. Clips in the gallbladder fossa. CTA images | | of the chest again shows median sternotomy with CABG. Images were nongated, thus | | evaluation of the coronary arteries is limited. See coronary angiogram 03/13/15. | | Ascending aorta measures a maximum of 4.1 cm AP x 3.9 cm transverse on the axial images. | | Ectasia of the ascending aorta, without defined aneurysm. No dissection. Trifurcation | | unremarkable. Visualized common carotid, right innominate artery, bilateral subclavian | | arteries unremarkable. Beam hardening from the adjacent right subclavian vein limits | | evaluation of the right subclavian artery. Descending thoracic aorta with minimal soft | | atheromatous change. Included portion of the celiac artery unremarkable. Cardiac | | chambers are normal in size. Pulmonary arteries unremarkable, without evidence of | | embolus. Bone windows show moderate spondylotic changes of the spine. IMPRESSION: 1. | | Mild fusiform ectasia of the ascending aorta measuring up to 4.1 cm AP x 3.9 cm | | transverse involving the proximal to mid ascending aorta.2. No evidence of dissection | | or pulmonary embolus.3. 3 mm pulmonary nodule subpleural posterior right upper lobe. If | | the patient has no risk factors for lung malignancy, no further follow-up is | | recommended. With risk factors, one-year follow-up CT is recommended.4. 4 mm | | infiltrative nodule in the anterior right upper lobe, nonspecific, probably | | inflammatory. Same recommendations as for #3.5. CABG. | |3. 3 mm pulmonary nodule subpleural posterior right upper lobe. If the patient has no risk factors for lung malignancy, no further follow-up is recommended. With risk factors, one-ye ar follow-up CT is recommended. | |4. 4 mm infiltrative nodule in the anterior right upper lobe, nonspecific, probably inflam matory. Same recommendations as for #3. | |5. CABG. | | | | | + + documented in this encounter Visit Diagnoses + + | Diagnosis | + + | Dizziness Dizziness and giddiness | + + documented in this encounter"
--- OUTSIDE RECORDS SUMMARY | ~2019-06-30 | XMS | Encounter Summary ---
Demographics + + + | Address | [address] | | | [place] [address] | + + + | Home Phone | | + + + | Preferred Language | Unknown | + + + | Marital Status | | + + + | Moravian Affiliation | 1041 | + + + [...] Providers + +------+ + | Care Director Biologics Name | Role | Phone | + [...] | | | | and | | [address] Phone: | | | | | obstruction, | | [phone] | | | | | unspecified | | Fax: | | | | | cholangitis | | [phone] | | | | | acuity | [...] | | | | | | | [place] ERCP DX | | | | | | | COLLECTION | | | | | | | SPECIMEN | | | | | | | BRUSHING/WAS | | | | | | | [place] | | | | | | | [...] | INTRA OP [address] | [place] [address] | | | | | [place] | [phone] | | | | | [address] | | | | | | [phone] | | | +--------+ + + + [...] Juárez RN | | | IV | [id number] catheter system; | | | | | 20 gauge; Coagulation, Chemistry, | | | | | Hematology | | | +--------+ + + + | Periph | 12/04/18; 1205; Right; | 12/04/18 1205 by | | | eral | Antecubital; [id number]-fhu-dfdlzm | Chelsie Still, | | | IV | catheter system; 20 gauge; | RN | | | | Hematology, Chemistry, | | | | | Coagulation | | | +--------+ + + + | Periph | 12/31/18; 0741; Right; Medial; | 12/31/18 0741 by | 01/01/19 1230 by | | eral | Forearm; [id number]-eyelub catheter | Deedee Lemons, MIKEL | Roselyn [...] | | | procedure documentation); Mask | VAULT CUSTODIAN | | | | Ventilation: EZ; Airway [...] MÉNDEZ | | | | | | [place] [address] | | | | | | [phone] | | | | | | | [...] Successful technique: | | | videoscope (elective [place]) Laryngoscope blade size: 3 Airway | | [...]
--- OUTSIDE RECORDS SUMMARY | ~2019-06-30 | XMS | Encounter Summary ---
Demographics + + + | Address | [address] | | | [place] [address] | + + + | Home Phone | | + + + | Preferred Language | Unknown | + + + | Marital Status | | + + + | Orthodox Affiliation | 1041 | + + + [...] Team Providers + +------+ + | Care Assistant Finance Manager Name | Role | Phone | + +------+ + | Filemon Roy MD | PCP | | + +------+ + Encounter Details +--------+ + + + + | Date | Type | Department | Care Team | Description | +--------+ + + + + | 08/06/ | Hospital | [facility] | Conversion | Coronary artery | | 2018 | Encounter | [facility] | Transaction, | disease involving | | | | [address] | Provider Unknown | [place] coronary | | | | [place], [place] | [phone] | artery of [place] | | | | [address] | | heart with angina | | | | [phone] | Erin Limon | pectoris ([facility]); | | | | | [address] | Ascending aortic | | | | | PAN LIZARRAGA F | aneurysm ([facility]); | | | | | [place] [address] | Smoker; Lung nodule, | | | | | [phone] | solitary | | | | | [...] MÉNDEZ | | | | | | [place] [address] | | | | | | [phone] | | | | | | | [...] were performed | | | using the [employer] 3-D software and sent to PACS. Oral [...] reconstructions were performed using the | | [employer] 3-D software and sent to PACS. 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
--- OUTSIDE RECORDS SUMMARY | ~2019-06-30 | XMS | Encounter Summary ---
Demographics + + + | Address | [address] | | | [place] [address] | + + + | Home Phone [...] Providers + +------+ + | Care Certified Genetic Counselor Name | Role | Phone | [...] + + | 11/17/ | Telephone | [facility] | Meme Le | ED (seen in | | 2019 | | GASTROENTEROLOGY | A, ORTHOPEDIC PODIATRIST [address] | emergency | | | | [address] | [place] [address] | department) | | | | [place], [place] | [phone] | | | | | [address] | | | | | | [phone] | | | +--------+ + + + [...] MÉNDEZ | | | | | | [place] [address] | | | | | | [phone] | | | | | | | | +--------+---------+ + + + documented as of this encounter Visit Diagnoses Not on filedocumented in this encounter"
--- OUTSIDE RECORDS SUMMARY | ~2019-06-30 | XMS | Encounter Summary ---
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 Opportunity given to ask questions, no questions at this t [place]. Pt denies pain. Pt discharge home/self care; spouse to transport home. Evelina James RN onver zaida Transaction, Provider Unknown - 03/13/2015 1:41 PM PST Case Management by ANASTASIA Acosta LICSW at 03/13/15 1341 Author: ANASTASIA Acosta LICSW Service: (none) Author Type: Whiting Can Worker Filed: 03/13/15 1343 Date of Service: 03/13/151340 Status: Signed Arabic Professor: ANASTASIA Acosta LICSW (Whiting Can Worker) Discharge planning: CM spoke with the lead RN regarding discharge needs. Per their report , they did not identify needs and feel that the pt does not need to be seen by CM at this ti [place]. I encouraged them to contact CM by phone at [phone]. onver zaida Transaction, Provider Unknown - 03/13/2015 11:19 AM PST Progress Notes by Raf Nguyen RPH at 03/13/15 1109 Author: Raf Nguyen RPH Service: (none) Author Type: Pharmacist Filed: 03/13/15 1119 Date of Service: 03/13/151118 Status: Signed Arabic Professor: Raf Nguyen RPH (Pharmacist) Clinical Pharmacy Note: Renal Monitoring [address] 69 y.o. female Ht Readings from Last 1 Encounters: 03/13/15 1.626 m (5' 4") Wt Readings from Last 1 Encounters: 03/13/15 62.596 kg (138 lb) CREATININE Date Value Ref Range Status 03/13/2015 0.86 0.50 - 1.00 mg/dL Final Comment: Testing performed at [facility];[address] [place] [address];[place] [address] CREATININE: 0.86 (03/13/15 0842) Estimated creatinine clearance [...] MÉNDEZ | | | | | | [place] [address] | | | | | | [phone] | | | | | | | [...] + + | Historically converted procedure from [facility] environment | EXTERNAL LAB | + + [...] EXTERNAL | | | | performed at [facility];888 | K/uL | LAB | | | | [address];[place] | | | | | | [address] | | | | + + + + + + | Red Blood | 4.25Comment: Testing | 3.70 - 5.10 | EXTERNAL | | | Cells | performed at [facility];888 | M/uL | LAB | | | Counted | [address];[place] | | | | | | [address] | | | | + + + + + + | Hemoglobin | 14.0Comment: Testing | 11.3 - 15.5 | EXTERNAL | | | | performed at [facility];888 | g/dL | LAB | | | | [address];[place] | | | | | | [address] | | | | + + + + + + | Hematocrit, | 41.9Comment: Testing | 34.0 - 46.0 % | EXTERNAL | | | POC | performed at [facility];888 | | LAB | | | | [address];[place] | | | | | | [address] | | | | + + + + + + | MCV | 98.6Comment: Testing | 80.0 - 100.0 fl | EXTERNAL | | | | performed at [facility];888 | | LAB | | | | [address];[place] | | | | | | [address] | | | | + + + + + + | MCH | 32.9Comment: Testing | 27.0 - 34.0 pg | EXTERNAL | | | | performed at [facility];[address] | | LAB | | | | [address];[place] | | | | | | [address] | | | | + + + + + + | MCHC | 33.4Comment: Testing | 32.0 - 35.5 | EXTERNAL | | | | performed at [facility];888 | g/dL | LAB | | | | [address];[place] | | | | | | [address] | | | | + + + + + + | RDW-CV | 45.5Comment: Testing | 37 - 53 fl | EXTERNAL | | | | performed at [facility];888 | | LAB | | | | [address];[place] | | | | | | [address] | | | | + + + + + + | Platelet | 203Comment: Testing | 150 - 400 K/uL | EXTERNAL | | | Count | performed at [facility];888 | | LAB | | | Plasma | [address];[place] | | | | | | [address] | | | | + + + + + + | MPV | 9.0Comment: Testing | fl | EXTERNAL | | | | performed at [facility];888 | | LAB | | | | [address];[place] | | | | | | [address] | | | | + + + + + + | Differentia | AUTOMATEDComment: | | EXTERNAL | | | l Type | Testing performed at | | LAB | | | | [facility];[address];[place] [address] | | | | + + + + + + | % Segmented | 65.67Comment: Testing | % | EXTERNAL | | | | performed at [facility];888 | | LAB | | | Neutrophils | [address];[place] | | | | | | [address] | | | | + + + + + + | % | 22.09Comment: Testing | % | EXTERNAL | | | Lymphocytes | performed at [facility];[address] | | LAB | | | | [address];[place] | | | | | | [address] | | | | + + + + + + | % Monocytes | 6.29Comment: Testing | % | EXTERNAL | | | | performed at [facility];[address] | | LAB | | | | [address];[place] | | | | | | [address] | | | | + + + + + + | % | 5.05Comment: Testing | % | EXTERNAL | | | Eosinophils | performed at [facility];[address] | | LAB | | | | [address];[place] | | | | | | [address] | | | | + + + + + + | % Basophils | 0.90Comment: Testing | % | EXTERNAL | | | | performed at [facility];[address] | | LAB | | | | [address];[place] | | | | | | [address] | | | | + + + + + + | Absolute | 6.36Comment: Testing | 1.90 - 7.40 | EXTERNAL | | | Segmented | performed at [facility];888 | K/uL | LAB | | | Neutrophils | [address];[place] | | | | | | [address] | | | | + + + + + + | Absolute | 2.14Comment: Testing | 1.00 - 3.90 | EXTERNAL | | | Lymphocytes | performed at [facility];888 | K/uL | LAB | | | | [address];[place] | | | | | | [address] | | | | + + + + + + | Absolute | 0.61Comment: Testing | 0.00 - 0.80 | EXTERNAL | | | Monocytes | performed at [facility];888 | K/uL | LAB | | | | [address];[place] | | | | | | [address] | | | | + + + + + + | Absolute | 0.49Comment: Testing | 0.00 - 0.50 | EXTERNAL | | | Eosinophils | performed at [facility];888 | K/uL | LAB | | | | [address];[place] | | | | | | [address] | | | | + + + + + + | Absolute | 0.09Comment: Testing | 0.00 - 0.10 | EXTERNAL | | | Basophils | performed at [facility];888 | K/uL | LAB | | | | [address];[place] | | | | | | [address] | | | | + + + [...] EXTERNAL | | | | performed at [facility];888 | mmol/L | LAB | | | | [address];[place] | | | | | | [address] | | | | + + + + + + | K | 4.1Comment: SLT | 3.5 - 4.9 | EXTERNAL | | | | HEMOLYSISTesting | mmol/L | LAB | | | | performed at [facility];888 | | | | | | [address];[place] | | | | | | [address] | | | | + + + + + + | Cl | 106Comment: Testing | 99 - 109 mmol/L | EXTERNAL | | | | performed at [facility];888 | | LAB | | | | [address];[place] | | | | | | [address] | | | | + + + + + + | CO2 | 30Comment: Testing | 23 - 32 mmol/L | EXTERNAL | | | | performed at [facility];[address] | | LAB | | | | [address];[place] | | | | | | [address] | | | | + + + + + + | Anion Gap | 10Comment: Testing | 5 - 20 mmol/L | EXTERNAL | | | | performed at [facility];888 | | LAB | | | | [address];[place] | | | | | | [address] | | | | + + + + + + | Glucose, | 84Comment: Testing | 65 - 99 mg/dL | EXTERNAL | | | Fasting | performed at [facility];888 | | LAB | | | | [address];[place] | | | | | | [address] | | | | + + + + + + | BUN | 16Comment: Testing | 8 - 25 mg/dL | EXTERNAL | | | | performed at [facility];[address] | | LAB | | | | [address];[place] | | | | | | [address] | | | | + + + + + + | Creatinine | 0.86Comment: Testing | 0.50 - 1.00 | EXTERNAL | | | | performed at [facility];888 | mg/dL | LAB | | | | [address];[place] | | | | | | [address] | | | | + + + + + + | BUN/Creatin | 19Comment: Testing | | EXTERNAL | | | ine Ratio | performed at [facility];[address] | | LAB | | | | [address];[place] | | | | | | [address] | | | | + + + + + + | Calcium | 8.5Comment: Testing | 8.5 - 10.5 | EXTERNAL | | | | performed at [facility];888 | mg/dL | LAB | | | | [address];[place] | | | | | | [address] | | | | + + + [...] | | | | | | at [facility];[address] [place] [address] | | | | | | [place] [address] | | | | + + + [...]
--- OUTSIDE RECORDS SUMMARY | ~2019-06-30 | XMS | Encounter Summary ---
Demographics + + + | Address | [address] | | | [place] [address] | + + + | Home Phone [...] Team Providers + +------+ + | Care Nursing Instructor Name | Role | Phone | + [...] [address] | | | | | [place], [place] | [facility] | | | | | [address] | [address] [place], [place] | | | | | [phone] | [address] | | | | | | | [...] MÉNDEZ | | | | | | [place] [address] | | | | | | [phone] | | | | | | | [...]
--- OUTSIDE RECORDS SUMMARY | ~2019-06-30 | XMS | Encounter Summary ---
Demographics + + + | Address | [address] | | | [place] [address] | + + + | Home Phone [...] Team Providers + +------+ + | Care Car Icer Name | Role | Phone | + +------+ + | Fabrice Hansen DO | PCP | | + +------+ + Reason for Visit Evaluate & Treat (Routine) + + + [...] | | | | | stones | [facility], | [place] | | | | | Procedures | [place] [address] | [address] Phone: | | | | | PHARMACY PICKING TECH | Phone: | [phone] | | | | | | [phone] | Fax: | | | | | | Fax: | [phone] | | | | | | [phone] | | + + + + + + + Encounter Details +--------+ + + + + | Date | Type | Department | Care Team | Description | +--------+ + + + + | 03/18/ | Off-Site | [facility] | Tom Limon MD | Hepatic lithiasis | | 2020 | Visit | and Pan[facility] GI | [address] [place] | (Primary Dx) | | | | South [address] | [address] [place], [place] | | | | | [address] | [address] | | | | | [place], [place] | | | | | | [address] | | | | | | [phone] | | | +--------+ + + + [...] + + documented as of this encounter Patient Instructions Patient Instructions Tom Limon MD - 03/18/2019 12:15 PM PST documented in this encounter Progress Notes Tom Limon MD - 03/18/2019 12:15 PM PSTRescheduled documented in this encounter Plan of Treatment +--------+---------+ + + + | Date | Type | Specialty | Care Team | Description | +--------+---------+ + + + | 06/09/ | Office | Cardiology | Erin Limon | | | 2020 | Visit | | [address] | | | | | | [address] [place] | | | | | | [place] [address] | | | | | | [phone] | | | | | | | | +--------+---------+ + + + documented as of this encounter Visit Diagnoses + + | Diagnosis | + + | Hepatic lithiasis - Primary Calculus of bile duct without mention of cholecystitis or | | obstruction | + + documented in this encounter"
--- OUTSIDE RECORDS SUMMARY | ~2019-06-30 | XMS | Encounter Summary ---
Demographics + + + | Address | [address] | | | [place] [address] | + + + | Home Phone [...] Team Providers + +------+ + | Care Periodontal Assistant Name | Role | Phone | + +------+ + | Fabrice Amos DO | PCP | | + +------+ + Encounter Details +--------+ + + + + | Date | Type | Department | Care Team | Description | +--------+ + + + + | 11/09/ | Hospital | [facility] | Rashi Thompson MD | Calculus of bile | | 2019 - | Encounter | [facility] | [address] [place] | duct with | | | | ORTHOPEDICS [address] | [address] [place] | cholangitis and | | 11/11/ | | [address] [place] | [address] | obstruction, | | 2019 | | [address] | | unspecified | | | | [phone] | Freddie Walton MD | cholangitis acuity; | | | | | [address] | Calculus of bile | | | | | [place] | duct with | | | | | [address] | cholangitis and | | | | [...] whether | | | | | | [place] or | | | | | | [...] Oconnor MD - 11/11/2018 4:38 PM PDT [facility] PM FACULTY HOSPITALIST DISCHARGE SUMMARY PATIENT NAME: [...] FOLLOW UP: Meme Le NP New address: [address] [place] [address] On 11/24/2018 Follow up appointment with your GI provider at 10:50am. Fabrice Amos DO [facility] [address] [facility] [address] In 1 week ISSUES REQUIRING FOLLOW [...] this chart may have been created with Sample6 voice recognition software. Occasi onal wrong-word or [...] neck or jaw pain Date Last Reviewed: 04/09/201719996223-6311 [employer]. [address] [place] [address]. All righ ts reserved. This information is [...] biliary sphincterotomy and balloon extraction. A 10 Nigerian 7 cm biliary stent was placed through [...] here or in the Assessment and Plan. [facility] Associated attestation - Rashi Thompson MD - [...] - Single Lumen 11/09/18 1125 Right Hand [id number]-[id number] catheter system 20 gauge;1 in length 1 [...] - 99 mg/dL Final Comment: Performed by [facility] [address] [place] [address] All pertinent labs and imaging have been reviewed. Please refer to the Assessment and Plan for details on management. I spent 36 minutes with the patient and on the patient's unit, with over 50% spent in couns eling and/or coordination of care. Please refer to the Assessment and Plan for details. Electronically signed by: Freddie Walton MD, [facility] 11/10/2018 15:45 Portions of this chart may have been created with Sample6 voice recognition software. Occasi onal wrong-word or [...] biliary sphincterotomy and balloon extraction. A 10 Nigerian 7 cm biliary stent was placed through [...] here or in the Assessment and Plan. [facility] Associated attestation - Rashi Thompson MD - [...] TUNNEL RELEASE; Surgeon: Yung Gomez MD; Location: [facility] ; Service: Neurosurgery; Laterality: Right; SECTION CHOLECYSTECTOMY COLONOSCOPY 07/2017 CORONARY ARTERY BYPASS GRAFT [address] [place] HYSTERECTOMY LIVER SURGERY 01/2018 LIVER DRAIN FOR LIVER ABCESS OTHER SURGICAL HISTORY OTHER SURGICAL HISTORY CATARACT EXTRACTION OTHER SURGICAL HISTORY UNLISTED PROCEDURE ARTHROSCOPY - bilateral thumbs OTHER SURGICAL HISTORY 08/03/2017 COLONOSCOPY WITH EGD - Procedure: COLONOSCOPY W/ EGD; Surgeon: Rich Frank MD; L ocation: [facility]; Service: Gastroenterology; Laterality: N/A; UPPER [...] has been changed since signin Order Audit [place] levothyroxine (SYNTHROID) 50 mcg tablet (Taking) Take 50 mcg by mouth Daily. lisinopril (PRINIVIL, ZESTRIL) 10 mg tablet (Taking) Take 10 mg by mouth Daily. Number of times this order has been changed since signin Order Audit [place] metoprolol succinate (TOPROL-XL) 25 mg 24 hr [...] has been changed since signin Order Audit [place] pantoprazole (PROTONIX) 40 mg tablet (Taking) Take 1 tablet by mouth Daily. Number of times this order has been changed since signin Order Audit [place] traZODone (DESYREL) 150 MG tablet (Taking) Take 75-150 mg by mouth Daily. Number of times this order has been changed since signin Order Audit [place] triamcinolone (KENALOG) 0.025% ointment (Taking) Apply 0.025 Units topically as needed fo r Rash. Number of times this order has been changed since signin Order Audit [place] venlafaxine (EFFEXOR) 75 MG tablet (Taking) Take [...] held with the patien t or patient's retention representative prior to the procedure. Benefits and [...] F | | | | | | [place] [address] | | | | | | [phone] | | | | | | | [...] | TRACEMASTER | | Duration:168 msP Horizontal [place]:35 degP Front [place]:17 degQ Onset:508 | | | msQRSD Interval:98 msQT Interval:464 msQTcB:397 msQTcF:418 msQRS | | | Horizontal [place]:-76 degQRS [place]:-38 degI-40 Horizontal [place]:-25 | | | degI-40 Front [place]:-36 degT-40 Horizontal [place]:-90 degT-40 Front | | | [place]:-42 degT Horizontal [place]:234 degT Wave [place]:162 degS-T Horizontal | | | [place]:115 degS-T Front [place]:128 degSeverity:- ABNORMAL ECG | | | -INTERP:SINUS BRADYCARDIAINTERP:VENTRICULAR TRIGEMINYINTERP:LEFT AXIS | | | DEVIATIONINTERP:BORDERLINE R WAVE PROGRESSION, ANTERIOR | | | LEADSINTERP:NONSPECIFIC T ABNORMALITIES, ANT-LAT LEADSElectronically | | | signed by: BIBI RAGLAND 11-11-2018 14:52:09 | | |QRS Horizontal [place]:-76 deg | | |QRS [place]:-38 deg | | |I-40 Horizontal [place]:-25 deg | | |I-40 Front [place]:-36 deg | | |T-40 Horizontal [place]:-90 deg | | |T-40 Front [place]:-42 deg | | |T Horizontal [place]:234 deg | | |T Wave [place]:162 deg | | |S-T Horizontal [place]:115 deg | | |S-T Front [place]:128 deg | | |Severity:- ABNORMAL ECG - [...] + + | [facility] TRACEMASTER | [address] | [place] [address] | [phone] | + + + + + CBC [...] ENCE | | | Immature | by [facility] [address], | K/uL | SACRED | | | Granulocyte | [place], [place] | | HEART | | | s |Performed by [facility] [address], [place], [place] | | MEDICA L | | [...] + + | [facility] | [address] | [place], [place] | | | HEART [facility] | | | | | LABORATORY [...] | | LABORATORY | | | | [facility] [address], | | CERNER | | | | [place] [address] | | | | + + + + + + + + | Specimen | + + | Blood specimen | | (specimen) | + + + + + + + | Performing | Address | City/State/Zipcode | Phone Number | | Organization | | | | + + + + + | [facility] | [address] | [place] [address] | | | [facility] | | | | | LABORATORY CERNER [...] [facility] | | | | Performed by [facility] [address] | | SACRED | | | | [address], [place] | | HEART | | | | [address] | | MEDICAL | | | | [...] + + | [facility] | [address] | [place] [address] | | | [facility] | | | | | HAZEL SLOAN [...] ENCE | | | Total | by [facility] [address], | | SACRED | | | | [place] [address] | | HEART | | | |Performed by [facility] [address], [place] [address] | | MEDICA L | | | [...] + + | [facility] | [address] | [place] [address] | | | [facility] | | | | | HAZEL SLOAN [...] | | | Estimate | Performed by [facility] [address] | | SACRED | | | | [address] [place] | | HEART | | | | [address] | | MEDICAL | | | | [...] + + | [facility] | [address] | [place] [address] | | | [facility] | | | | | LABORATORY CERNER [...] | | LABORATORY | | | | [facility] [address], | | [place] | | | | [place] [address] | | | | + + + + + + + + | Specimen | + + | Blood specimen | | (specimen) | + + + + + + + | Performing | Address | City/State/Zipcode | Phone Number | | Organization | | | | + + + + + | [facility] | [address] | [place] [address] | | | [facility] | | | | | HAZEL SLOAN [...] | | LABORATORY | | | | [facility] [address], | | [place] | | | | [place] [address] | | | | + + + + + + + + | Specimen | + + | Blood specimen | | (specimen) | + + + + + + + | Performing | Address | City/State/Zipcode | Phone Number | | Organization | | | | + + + + + | [facility] | [address] | [place] [address] | | | HEART [facility] | | | | | LABORATORY [...] | | | Immature | Performed by [facility] [address] | K/uL | SACRED | | | Granulocyte | [address] [place] | | HEART | | | s | [id number] | | MEDICAL | | | | [...] + | [facility] | [address] | [place] [address] | | | [facility] | | | | | LABORATORY [place] [...] removal and stent placement. | | | Underground Drill Operator Dr. Thompson. Fluoro Time: 24 minute(s)41 [...] | sphincterotomy, stone removal and stent placement. Underground Drill Operator | | Jay. | | | [...] | [facility] | [place] | | [facility] | PROVATION | | CenterGI | | | Patient Name: Sharon Way Procedure | | | Date: 11/09/2018 1:37 PMMRN: [id number] | | | of : 1945 | [...] | | | | | Findings: The marionette performer film was normal. [place] ampulla was | | | noted in [...] | | | placed. Finally a 10 Nigerian 7cm plastic biliary stent was placed in [...] | sphincterotomy and balloon extraction. A 10 Nigerian 7 cm biliary | | | stent [...] | | 1:37 PMNumber of Addenda: 0 [facility] | | | [place] | | |RASHI THOMPSON MD | | |11/09/2018 5:46:27 PM | | |This report has been signed electronically. | | | | | |Note Initiated On: 11/09/2018 1:37 PM | | |Number of Addenda: 0 | | | | | | [facility] | | + [...] | TRACEMASTER | | Duration:164 msP Horizontal [place]:30 degP Front [place]:17 degQ Onset:504 | | | msQRSD Interval:92 msQT Interval:448 msQTcB:429 msQTcF:435 msQRS | | | Horizontal [place]:-54 degQRS [place]:-34 degI-40 Horizontal [place]:-1 degI-40 | | | Front [place]:-33 degT-40 Horizontal [place]:-70 degT-40 Front [place]:-41 | | | degT Horizontal [place]:254 degT Wave [place]:-20 degS-T Horizontal [place]:129 | | | degS-T Front [place]:140 degSeverity:- ABNORMAL ECG -INTERP:SINUS | | | BRADYCARDIAINTERP:VENTRICULAR TRIGEMINYINTERP:LEFT AXIS | | | DEVIATIONINTERP:NONSPECIFIC T ABNORMALITIES, ANTERIOR | | | LEADSElectronically signed by: BIBI RAGLAND 11-09-2018 12:40:55 | | |QTcF:435 ms | | |QRS Horizontal [place]:-54 deg | | |QRS [place]:-34 deg | | |I-40 Horizontal [place]:-1 deg | | |I-40 Front [place]:-33 deg | | |T-40 Horizontal [place]:-70 deg | | |T-40 Front [place]:-41 deg | | |T Horizontal [place]:254 deg | | |T Wave [place]:-20 deg | | |S-T Horizontal [place]:129 deg | | |S-T Front [place]:140 deg | | |Severity:- ABNORMAL ECG - [...] + + | [facility] | [address] [place] | [place] [address] | [phone] | + + + + + POC Glucose (11/09/2018 11:31 AM PDT) + + + + --+ + | Component | Value | Ref Range | Performed | Pathologist | | | | | At | Signature | + + + + --+ + | Glucose, | 89Comment: Performed by | 65 - 99 mg/dL | [facility] | | | POC | [facility] [address], | | SACRED | | | | [place] [address] | | HEART | | | |Performed by [facility] [address], [place] [address] | | MEDICAL | | | | [...] SACRED | [address] | [place] [address] | | | [facility] | | | | | HAZEL LUTHER [...] or lesion | | type, unspecified whether [place] or transplanted heart | + + | [...] | | | | | | longer, yeegmh-kei-lsbqk use of | | | | | [...] | | | | | | | [facility] 11/11/18 at 0730, Give before | [...]
--- OUTSIDE RECORDS SUMMARY | ~2019-06-30 | XMS | Encounter Summary ---
Demographics + + + | Address | [address] | | | [place] [address] | + + + | Home Phone | | + + + | Preferred Language | Unknown | + + + | Marital Status | | + + + | Restorationist Affiliation | 1041 | + + + | Race | Unknown | + + + | Ethnic Group | Unknown | + + + Author + + + | Author | [facility] | | | and Luisana | + + + | Organization | [facility] | | | [...] Team Providers + +------+ + | Care Hosiery Pairer Name | Role | Phone | + +------+ + | Fabirce Hansen DO | PCP | | + [...] | | | | | stones | [place], | [place] | | | | | Procedures | [place] [address] | [address] Phone: | | | | | STAGE RIGGER | Phone: | [phone] | | | | | | [phone] | Fax: | | | | | | Fax: | [phone] | | | | | | [phone] | | + + + + + + + Encounter Details +--------+ + + + + | Date | Type | Department | Care Team | Description | +--------+ + + + + | 03/18/ | Off-Site | [facility] | Tom Limon MD | Hepatic lithiasis | | 2020 | Visit | and Pancreas GI | [address] [place] | (Primary Dx) | | | | South [address] | [address] [place], [place] | | | | | [address] | [address] | | | | | [place], [place] | | | | | | [address] | | | | | | [phone] | | | +--------+ + + + [...] MÉNDEZ | | | | | | [place] [address] | | | | | | [phone] | | | | | | | | +--------+---------+ + + + documented as of this encounter Visit Diagnoses + + | Diagnosis | + + | Hepatic lithiasis - Primary Calculus of bile duct without mention of cholecystitis or | | obstruction | + + documented in this encounter"
--- OUTSIDE RECORDS SUMMARY | ~2019-06-30 | XMS | Encounter Summary ---
Demographics + + + | Address | [address] | | | [place] [address] | + + + | Home Phone [...] Team Providers + +------+ + | Care Military Pilot Name | Role | Phone | + [...] + + | 11/16/ | Telephone | [facility] | Meme Le | Other (Pain post | | 2019 | | GASTROENTEROLOGY | A, MECHANICAL INTEGRITY ENGINEER [address] | ERCP) | | | | [address] | [place] [address] | | | | | [place], [place] | [phone] | | | | | [address] | | | | | | [phone] | | | +--------+ + + + [...] | | | | | [place] [address] | | | | | | [phone] | | | | | | | | +--------+---------+ + + + documented as of this encounter Visit Diagnoses Not on filedocumented in this encounter"
--- OUTSIDE RECORDS SUMMARY | ~2019-06-30 | XMS | Encounter Summary ---
Demographics + + + | Address | [address] | | | [place] [address] | + + + | Home Phone [...] Team Providers + +------+ + | Care Sand Blaster Name | Role | Phone | + [...] Provider Unknown | | | | | [place], [place] | [phone] | | | | | [address] | | | | | | [phone] | | | +--------+ + + + [...] | | | | | [place] [address] | | | | | | [phone] | | | | | | | | +--------+---------+ + + + documented as of this encounter Visit Diagnoses Not on filedocumented in this encounter"
--- OUTSIDE RECORDS SUMMARY | ~2019-06-30 | XMS | Encounter Summary ---
Demographics + + + | Address | [address] | | | [place] [address] | + + + | Home Phone [...] Team Providers + +------+ + | Care Carpet Sewer Name | Role | Phone | + +------+ + | Filemon Roy MD | PCP | | + +------+ + Encounter Details +--------+ + + + + | Date | Type | Department | Care Team | Description | +--------+ + + + + | 07/20/ | Hospital | [facility] | Conversion | | | 2018 | Encounter | CENTER [facility] | Transaction, | | | | | CLINIC [address] | Provider Unknown | | | | | [address] [place], [place] | [phone] | | | | | [address] | | | | | | [phone] | | | +--------+ + + + [...] MÉNDEZ | | | | | | [place] [address] | | | | | | [phone] | | | | | | | [...] | + + + | SHARON Naik [place] 1945 72 years XR CHEST 2 VIEW [...] | | | POC | performed at [facility];[address] | | LAB | | | | [place] | | | | | | [address] | | | | + + + [...]
--- OUTSIDE RECORDS SUMMARY | ~2019-06-30 | XMS | Encounter Summary ---
Demographics + + + | Address | [address] | | | [place] [address] | + + + | Home Phone | | + + + | Preferred Language | Unknown | + + + | Marital Status | | + + + | Quaker Affiliation | 1041 | + + + | Race | Unknown | + + + | Ethnic Group | Unknown | + + + Author + + + | Author | [facility] | | | and Luisana | + + + | Organization | [facility] | | [...] Providers + +------+ + | Care Business Office Assistant Name | Role | Phone | [...] + + | 03/16/ | Telephone | [facility] | Tom Limon MD | Care Coordination; | | 2019 | | and Pancreas GI | [address] [place] | Appointment (cancel | | | | South [address] | [address] [place] | 03/17/19 [place], | | | | [address] | [address] | reschedule for 6 | | | | [place] | | mos); Imaging Only | | | | [address] | | (MRI/MRCP); Nausea | | | | [phone] | | | +--------+ + + + [...] MÉNDEZ | | | | | | [place] [address] | | | | | | [phone] | | | | | | | | +--------+---------+ + + + documented as of this encounter Visit Diagnoses Not on filedocumented in this encounter"
--- OUTSIDE RECORDS SUMMARY | ~2019-06-30 | XMS | Encounter Summary ---
Demographics + + + | Address | [address] | | | [place] [address] | + + + | Home Phone [...] Team Providers + +------+ + | Care Multiple Resaw Operator Name | Role | Phone | [...] | [facility] | MD Bear [address] [place] [address] | | | | | CARDIAC TELEMETRY | [address] [place] | | | 03/09/ | | [address] | [address] | | | 2001 | | [place] | | | | | | [address] | Romeo Diaz | | | | | [phone] | | | +--------+ + + + [...] MÉNDEZ | | | | | | [place] [address] | | | | | | [phone] | | | | | | | | +--------+---------+ + + + documented as of this encounter Visit Diagnoses Not on filedocumented in this encounter"
--- OUTSIDE RECORDS SUMMARY | ~2019-06-30 | XMS | Encounter Summary ---
Demographics + + + | Address | [address] | | | [place] [address] | + + + | Home Phone [...] + | Author | [facility] | | | and Luisana | + + + | Organization | [facility] | | | and [...] Team Providers + +------+ + | Care Memorial Designer Name | Role | Phone | + +------+ + | Filemon Roy MD | PCP | | + +------+ + Encounter Details +--------+ + + + + | Date | Type | Department | Care Team | Description | +--------+ + + + + | 04/03/ | Hospital | [facility] | Conversion | Dizziness | | 2016 | Encounter | [facility] [address] | Transaction, | | | | | [address] | Provider Unknown | | | | | [place], [place] | [phone] | | | | | [address] | | | | | | [phone] | | | +--------+ + + + [...] MÉNDEZ | | | | | | [place] [address] | | | | | | [phone] | | | | | | | [...] | 3-D reconstructions were performed using the BabyGlowz 3-D software | | | and sent [...] | | reconstructions were performed using the BabyGlowz 3-D software and sent to PACS. Oral [...]
--- OUTSIDE RECORDS SUMMARY | ~2019-06-30 | XMS | Encounter Summary ---
Demographics + + + | Address | [address] | | | [place] [address] | + + + | Home Phone | | + + + | Preferred Language | Unknown | + + + | Marital Status | | + + + | Worship Affiliation | 1041 | + + + | Race | Unknown | + + + | Ethnic Group | Unknown | + + + Author + + + | Author | [facility] | | | and Luisana | + + + | Organization | [facility] | | | [...] Team Providers + +------+ + | Care Bean Viner Name | Role | Phone | + [...] + + | 12/28/ | Refill | [facility] | Marcelino Bravo, | Medication Refill | | 2019 | | [facility] | MD Duarte [address] | | | | | PRIMARY CARE [address] | [facility] [address] | | | | | [address] | [place] [address] | | | | | [place], [place] | [phone] | | | | | [address] | | | | | | [phone] | | | +--------+--------+ + + + [...] | | | | | [place] [address] | | | | | | [phone] | | | | | | | | +--------+---------+ + + + documented as of this encounter Visit Diagnoses Not on filedocumented in this encounter"
--- OUTSIDE RECORDS SUMMARY | ~2019-06-30 | XMS | Encounter Summary ---
Demographics + + + | Address | [address] | | | [place] [address] | + + + | Home Phone [...] Team Providers + +------+ + | Care Data Entry Representative Name | Role | Phone | [...] | | | | and | | [address] Phone: | | | | | obstruction, | | [phone] | | | | | unspecified | | Fax: | | | | | cholangitis | | [phone] | | | | | acuity | [...] | | | | | | | NE ERCP DX | | | | | | | COLLECTION | | | | | | | SPECIMEN | | | | | | | BRUSHING/WAS | | | | | | | THALIA NE | | | | | | | [...] + | 12/31/ | Surgery | [facility] | Jason Cadena MD | ENDOSCOPIC | | 2019 | | [facility] | [address] [place] | RETROGRADE | | | | INTRA OP [address] | [address] [place], [place] | CHOLANGIOPANREATOG | | | | Ave [place], [place] | [address] | | | | | [address] | | | | | | [phone] | | | +--------+---------+ + + + [...] Ho MD - 01/01/2019 12:16 PM PST [facility] Patient: Sharon Way Date of : 1945 PCP: Fabrice Hansen DO Admit Date: 12/31/2018 Discharge Date: 01/01/2019 Date of Service: 01/01/2019 Issues Requiring Follow Up after Discharge: Needs follow up with - hepatobiliary surgeon Follow Up Appointments: Fabrice Hansen DO [address] [facility] [id number] Call As needed Tom Limon MD [address], [place] [address] [facility] [phone] Schedule an appointment as soon as possible for a visit in 2 weeks Discharge Disposition: Home Consultants This Admission: [facility] Course: Sharon Way is a [...] this chart may have been created with Mobile Theory voice recognition software. Occasi onal wrong-word or [...] not hear from them phoebe holder call [phone]. Return to ER if symtopms get worse. [...] at bedside. Now s tracee at the [facility]. Electronically signed by: Belinda Galan, Rotoformer Backtender 12/31 6:47 PM Sara Lloyd RN - [...] | | | | | | [place] [address] | | | | | | [phone] | | | | | | | [...] | + +--------+ + + + | NE ERCP DX | Routin | 12/31/2018 | [...] | | LABORATORY | | | | [facility] [address], | | [place] | | | | [place] [address] | | | | + + + + + + + + | Specimen | + + | Blood specimen | | (specimen) | + + + + + + + | Performing | Address | City/State/Zipcode | Phone Number | | Organization | | | | + + + + + | [facility] | [address] | [place] [address] | | | [facility] | | | | | HAZEL [...] ENCE | | | Immature | by [facility] [address], | K/uL | SACRED | | | Granulocyte | [place] [address] | | HEART | | | s |Performed by [facility] [address], [place] [address] | | MEDICA L | | | [...] + + | [facility] | [address] | [place] [address] | | | [facility] | | | | | LABORATORY [...] Performed At | + + + | [place] | [place] | | [facility] | PROVATION | | [facility] | | | Patient Name: Sharon Way | | | Procedure Date: 12/31/2018 8:54 AMMRN: [id number] | | | of : 1945 | [...] | | | | | Findings: A thread drawer film of the abdomen was obtained. The [...] the | | | branch. Then, a [employer] Spyglass DS system was used to | [...] | | | AMNumber of Addenda: 0 [facility] | | |This report has been signed electronically. | | | | | |Note Initiated On: 12/31/2018 8:54 AM | | |Number of Addenda: 0 | | | | | | [facility] | | + + + + +---------+ [...] | [facility] | | | POC | [facility] [address], | | SACRED | | | | [place] [address] | | HEART | | | |Performed by [facility] [address], [place] [address] | | MEDICAL | | | | [...] + | [facility] | [address] | [place] [address] | | | [facility] | | | | | HAZEL [...] | | | | | | longer, eghwrf-jlo-woyjr use of | | | | | [...] | | | | | | use [place] 10/325 if ordered. If | | | [...]
--- OUTSIDE RECORDS SUMMARY | ~2019-06-30 | XMS | Encounter Summary ---
Demographics + + + | Address | [address] | | | [place] [address] | + + + | Home Phone [...] Team Providers + +------+ + | Care Taxicab Coordinator Name | Role | Phone | [...] | common bile | [address]VE, [place] | [place], [place] | | | | | duct | [address] | [address] | | | | | [place] | [place], [place] | Phone: | | | | | odenal | [address] | [phone] | | | | | fistula | Phone: | Fax: | | | | | Procedures | [phone] | [phone] | | | | | MRI Abdomen | Fax: | | | | | | w wo | [phone] | | | | | | Contrast | | | | | | | MRCP | | | +--------+--------+ + + + + Encounter Details +--------+ + + + + | Date | Type | Department | Care Team | Description | +--------+ + + + + | 12/27/ | Hospital | [facility] | Breann Maria PA | | | 2019 | Encounter | [facility] MRI 945 | [address] | | | | | [address] | [address] [place], [place] | | | | | [place], [place] | [address] | | | | | [address] | | | | | | [phone] | | | +--------+ + + + [...] | | | | | [place] [address] | | | | | | [phone] | | | | | | | [...]
--- OUTSIDE RECORDS SUMMARY | ~2019-06-30 | XMS | Encounter Summary ---
Demographics + + + | Address | [address] | | | [place] [address] | + + + | Home Phone [...] Team Providers + +------+ + | Care Inspecting And Testing Lead Hand Name | Role | Phone | + +------+ + | Fabrice Hansen DO | PCP | | + +------+ + Encounter Details +--------+ + + + + | Date | Type | Department | Care Team | Description | +--------+ + + + + | 04/08/ | Orders Only | [facility] | Fabrice Hansen | | | 2019 | | [facility] | RefugiojeremiasDO [address] | | | | | PRIMARY CARE [address] | SHADI CASE | | | | | [address] | [address] [place], [place] | | | | | [place], [place] | [address] | | | | | [address] | | | | | | [phone] | | | +--------+ + + + [...] MÉNDEZ | | | | | | [place] [address] | | | | | | [phone] | | | | | | | | +--------+---------+ + + + documented as of this encounter Visit Diagnoses Not on filedocumented in this encounter"
--- OUTSIDE RECORDS SUMMARY | ~2019-06-30 | XMS | Encounter Summary ---
Demographics + + + | Address | [address] | | | [place] [address] | + + + | Home Phone | | + + + | Preferred Language | Unknown | + + + | Marital Status | | + + + | Latter-Day Affiliation | 1041 | + + + | Race | Unknown | + + + | Ethnic Group | Unknown | + + + Author + + + | Author | [facility] | | | and Luisana | + + + | Organization | [facility] | | | [...] Providers + +------+ + | Care Supervisor Asphalt Paving Name | Role | Phone | + [...] Radiology | Diagnoses | Rey, | [facility] | | Review | | | Calculus of | Meme A, | REGIONAL | | | | | bile duct | CARDIOVASCULAR SURGEON [address] | MEDICAL | | | | | with | [address] | CENTER [address] | | | | | cholangitis | [place], [place] | [address] | | | | | and | [address] | [place], [place] | | | | | obstruction, | Phone: | [address] | | | | | unspecified | [phone] | Phone: | | | | | cholangitis | Fax: | [phone] | | | | | acuity | [phone] | Fax: | | | | | Procedures | | [phone] | | | | | MRI Abdomen [...] + | 01/12/ | Orders Only | [facility] | Meme Le | Calculus of bile | | 2019 | | GASTROENTEROLOGY | A, CARDIOVASCULAR SURGEON [address] | duct with | | | | [address] | [place] [address] | cholangitis and | | | | [place], [place] | [phone] | obstruction, | | | | [address] | | unspecified | | | | [phone] | | cholangitis acuity | | | [...] MÉ[place]DE[place] | | | | | | [place] [address] | | | | | | [phone] | | | | | | | [...] surgical | | | candidacy. (Based on [employer] | | [...] potential | | surgical candidacy. (Based on [employer] | | [...]
--- OUTSIDE RECORDS SUMMARY | ~2019-06-30 | XMS | Encounter Summary ---
Demographics + + + | Address | [address] | | | [place] [address] | + + + | Home Phone [...] Team Providers + +------+ + | Care Overhead Line Worker Name | Role | Phone | [...] + + | 11/18/ | Telephone | [facility] | Elizabeth Bustamante, | Medication Question | | 2018 | | OIL FURNACE INSTALLER | Solidworks Designer | | | | | MANAGEMENT [address] | | | | | | [address] | | | | | | [place] | | | | | | [address] | | | | | | [phone] | | | +--------+ + + + [...] MÉNDEZ | | | | | | [place] [address] | | | | | | [phone] | | | | | | | | +--------+---------+ + + + documented as of this encounter Visit Diagnoses Not on filedocumented in this encounter"
--- OUTSIDE RECORDS SUMMARY | ~2019-06-30 | XMS | Encounter Summary ---
Demographics + + + | Address | [address] | | | [place] [address] | + + + | Home Phone [...] Phone | + + +---------+ + | Lyod Mcnair | ECON | Unknown | | + + +---------+ + | Cecile Way | ECON | Unknown | | + + +---------+ + Care Team Providers + +------+ + | Care Blindstitch Lapel Padder Name | Role | Phone | + [...] | | | | | stones | [place], | [place] | | | | | Procedures | [place] [address] | [address] Phone: | | | | | DIVISIONAL HUMAN RESOURCES DIRECTOR | Phone: | [phone] | | | | | | [phone] | Fax: | | | | | | Fax: | [phone] | | | | | | [phone] | | + + + + + [...] | | | | and | | [address] Phone: | | | | | obstruction, | | [phone] | | | | | unspecified | | Fax: | | | | | cholangitis | | [phone] | | | | | acuity | [...] | | | | | | | ND ERCP DX | | | | | | | COLLECTION | | | | | | | SPECIMEN | | | | | | | BRUSHING/WAS | | | | | | | THALIA ND | | | | | | | [...] + + | 12/31/ | Hospital | [facility] | Jason Cadena MD | Intrahepatic bile | | 2019 - | Encounter | [facility] | [address] [place] | duct stones (Primary | | | | NEPHROLOGY [address] | [address] [place] | Dx); Intrahepatic | | 01/01/ | | [address] [place] | [address] | bile duct dilation; | | 2019 | | [address] | | Calculus of bile | | | | [phone] | Arminda Cruz MD | duct with | | | | | [address] | cholangitis and | | | | | [address] [place] | obstruction, | | | | | [address] | unspecified | | | | | | cholangitis acuity; | | | | | Robbie Ho MD | Chronic obstructive | | | | | [address] | pulmonary disease, | | | | | [address] [place] | unspecified COPD | | | | | [address] | type (HCC); Coronary | | | | | | artery disease | | | | | | involving craig | | | | | | coronary artery of | | | | | | craig heart, angina | | | | | [...] Ho MD - 01/01/2019 12:16 PM PST [facility] Patient: Sharon Way Date of : 1945 PCP: Fabrice Hansen DO Admit Date: 12/31/2018 Discharge Date: 01/01/2019 Date of Service: 01/01/2019 Issues Requiring Follow Up after Discharge: Needs follow up with - hepatobiliary surgeon Follow Up Appointments: Fabrice Hansen DO [address] [facility] [address] [facility] [address] Call As needed Tom Limon MD [address], [place] [address] [facility] [phone] Schedule an appointment as soon as possible for a visit in 2 weeks Discharge Disposition: Home Consultants This Admission: [facility] Course: [address] is a 73 [...] this chart may have been created with Angel Alerts voice recognition software. Occasi onal wrong-word or [...] not hear from them phoebe holder call [phone]. Return to ER if symtopms get worse. [...] at bedside. Now s tracee at the [facility]. Electronically signed by: Belinda Galan, Advertising Strategist 12/31 6:47 PM Sara Lloyd RN - [...] MÉNDEZ | | | | | | [place] [address] | | | | | | [phone] | | | | | | | [...] | + +--------+ + + + | ND ERCP DX | Routin | 12/31/2018 | [...] | | LABORATORY | | | | [facility] [address], | | [place] | | | | [place] [address] | | | | + + + + + + + + | Specimen | + + | Blood specimen | | (specimen) | + + + + + + + | Performing | Address | City/State/Zipcode | Phone Number | | Organization | | | | + + + + + | [facility] | [address] | [place] [address] | | | [facility] | | | | | LABORATORY CERNER [...] ENCE | | | Immature | by [facility] [address], | K/uL | [place] | | | Granulocyte | [place] [address] | | HEART | | | s |Performed by [facility] [address], [place] [address] | | MEDICA L | | | [...] + + | [facility] | [address] | [place] [address] | | | [facility] | | | | | LABORATORY CERNER [...] | | Procedure Date: 12/31/2018 8:54 AMMRN: [id number] | | | of : 1945 | [...] | | | | | Findings: A process laboratory specialist film of the abdomen was obtained. The [...] the | | | branch. Then, a [employer] Spyglass DS system was used to | [...] | | | AMNumber of Addenda: 0 [facility] | | |This report has been signed electronically. | | | | | |Note Initiated On: 12/31/2018 8:54 AM | | |Number of Addenda: 0 | | | | | | [facility] | | + + + + [...] | [facility] | | | POC | [facility] [address], | | SACRED | | | | [place] | | HEART | | | |Performed by [facility] [address], [place], [place] | | MEDICAL | | | [...] + + | [facility] | [address] [place] [address] | [place], [place] | | | [facility] [...] + + | Coronary artery disease involving craig coronary artery of craig heart, angina | | presence unspecified | + + | CAD (coronary artery disease) Coronary atherosclerosis of unspecified type of vessel, | | craig or graft | + + documented in [...] | | | | | | longer, wzisoa-mzp-bsbzo use of | | | | | [...] | | | | | | use [place] 10/325 if ordered. If | | | [...]
--- OUTSIDE RECORDS SUMMARY | ~2019-06-30 | XMS | Encounter Summary ---
Demographics + + + | Address | [address] | | | [place] [address] | + + + | Home Phone [...] Team Providers + +------+ + | Care Ware Dresser Name | Role | Phone | + [...] | Epigastric | Fabrice | Meme Naik [employer] OFFICER | | | Required | | pain | Edjeremias DO | [address] | | | | | Dysphagia, | [address] | | | | | unspecified | [address] | [place], [place] | | | | | type | [address] | [address] Phone: | | | | | | [place], [place] | [phone] | | | | | | [address] | Fax: | | | | | | Phone: | [phone] | | | | | | [phone] | | | | | | | Fax: | | | | | | | [phone] | | + + + + + [...] + + | 09/27/ | Office | [facility] | Fabrice Hansen | Epigastric pain | | 2019 | Visit | [facility] | DO Duarte Kan | (Primary Dx); | | | | [facility] [address] | [address] | Dysphagia, | | | | [address] | [address] [place], [place] | unspecified type | | | | [place], [place] | [address] | | | | | [address] | | | | | | [phone] | | | +--------+---------+ + + + [...] symptoms educaiton on this given Destiny Mar, Rodbuster - 09/27/2018 2:00 PM PDTFormatting of this [...] [place] | | | | | | [place] [address] | | | | | | [phone] | | | | | | | [...] | | | | | performed at [facility];[address] | | | | | | [facility] | | | | | | Blvd;[place] [address] | | | | | | | | | | + + + + + + + + | Specimen | + + | Blood | + + + + + + + | Performing | Address | City/State/Zipcode | Phone Number | | Organization | | | | + + + + + | REFERENCE LAB | [address] [facility] | [place] | [phone] | | [facility] | [address] | [address] | | | LABORATORY | | | | + + + + + | REFERENCE LAB | [address] | [place] | | | [facility] | Blvd. | [address] | | | LABORATORY | | | [...] REFERENCE | | | | performed at [facility];[address] | | LAB | | | | [place] | | [facility] | | | | Blvd;[place] [address] | | LABORATORY | | + + + + + + + + | Specimen | + + | Blood | + + + + + + + | Performing | Address | City/State/Zipcode | Phone Number | | Organization | | | | + + + + + | REFERENCE LAB | [address] [facility] [address] [facility] | [place], [place] | [phone] | | [facility] | Bl[address] | [address] | | | LABORATORY | | | | + + + + + | REFERENCE LAB | [address] [facility] | [place], [place] | | | [facility] | Bl[address] | [address] | | | LABORATORY | | | [...] REFERENCE | | | | performed at [facility];[address] | | LAB | | | | [place] | | [facility] | | | | Blvd;[place] [address] | | LABORATORY | | + + + + + + + + | Specimen | + + | Blood | + + + + + + + | Performing | Address | City/State/Zipcode | Phone Number | | Organization | | | | + + + + + | REFERENCE LAB | [address] [place] [address] | [place], [place] | [phone] | | [facility] | Bl[address] | [address] | | | LABORATORY | | | | + + + + + | REFERENCE LAB | [address] [place] [address] | [place], [place] | | | [facility] | Blvd. | [address] | | | LABORATORY | | | | + + + + + documented in this encounter Visit Diagnoses + + | Diagnosis | + + | Epigastric pain - Primary Abdominal pain, epigastric | + + | Dysphagia, unspecified type | + + documented in this encounter"
--- OUTSIDE RECORDS SUMMARY | ~2019-06-30 | XMS | Encounter Summary ---
Demographics + + + | Address | [address] | | | [place] [address] | + + + | Home Phone | | + + + | Preferred Language | Unknown | + + + | Marital Status | | + + + | Buddhism Affiliation | 1041 | + + + | Race | Unknown | + + + | Ethnic Group | Unknown | + + + Author + + + | Author | [facility] | | | and Luisana | + + + | Organization | [facility] | | | [...] Team Providers + +------+ + | Care Brake Lining Maker Name | Role | Phone | [...] | and Pancreas | bile duct | AUTO SERVICE STATION ATTENDANT [address] | [address] | | | | Surgery | with | BLVD | [place] | | | | | cholangitis | [place], [place] | [address] | | | | | and | [address] | Phone: | | | | | obstruction, | Phone: | [phone] | | | | | unspecified | [phone] | Fax: | | | | | cholangitis | Fax: | [phone] | | | | | acuity | [phone] | | | | | | Procedures [...] + + | 11/03/ | Telephone | [facility] | Gloria Campbell, | Other (Referral to | | 2018 | | GASTROENTEROLOGY | Blue Prints Trimmer | ) | | | | [address] [facility] | | | | | | [place], [place] | | | | | | [address] | | | | | | [phone] | | | +--------+ + + + [...] [place] | | | | | | [facility] [place] [place] [place] [address] | | | | | | [phone] | | | | | | | [...]
--- OUTSIDE RECORDS SUMMARY | ~2019-06-30 | XMS | Encounter Summary ---
Demographics + + + | Address | [address] | | | [place] [address] | + + + | Home Phone [...] Team Providers + +------+ + | Care Tree Sapper Name | Role | Phone | + +------+ + | Fabrice Hansen DO | PCP | | + +------+ + Encounter Details +--------+ + + + + | Date | Type | Department | Care Team | Description | +--------+ + + + + | 11/05/ | Orders Only | [facility] | Bacilio Thompson MD | Calculus of bile | | 2019 | | and Pancreas GI | [address] [place] | duct with | | | | [address] | [address] [place], [place] | cholangitis and | | | | [id number] | [address] | obstruction, | | | | [place], [place] | | unspecified | | | | [address] | | cholangitis acuity | | | | [phone] | | (Primary Dx) | +--------+ + [...] [place] | | | | | | [place] [address] | | | | | | [phone] | | | | | | | | +--------+---------+ + + + documented as of this encounter Visit Diagnoses + + | Diagnosis | + + | Calculus of bile duct with cholangitis and obstruction, unspecified cholangitis acuity | | - Primary | + + documented in this encounter"
--- OUTSIDE RECORDS SUMMARY | ~2019-06-30 | XMS | Encounter Summary ---
Demographics + + + | Address | [address] | | | [place] [address] | + + + | Home Phone [...] Team Providers + +------+ + | Care Fig Bar Machine Operator Name | Role | Phone | + +------+ + PCP | Unavailable | + +------+ + Encounter Details +--------+ + + + + | Date | Type | Department | Care Team | Description | +--------+ + + + + | 09/09/ | Hospital | [facility] | Yung Gomez | Carpal tunnel | | 2013 | Encounter | [facility] | Patrica Sergey Matthew | syndrome | | | | OPERATING ROOM [address] [place], [place] | | | | | [address] | [address] | | | | | [place], [place] | | | | | | [address] | | | | | | [phone] | | | +--------+ + + + [...] 10/18/121316 Date of Service: 10/18/121316 Status: Signed Compactor Driver: Ember Saldana RPH (Pharmacist) Renal Dosing Monitoring: [...] | | | | [place] [address] | | | | | | [phone] | | | | | | | | +--------+---------+ + + + documented as of this encounter Visit Diagnoses + + | Diagnosis | + + | Carpal tunnel syndrome | + + documented in this encounter"
--- OUTSIDE RECORDS SUMMARY | 2019-06-30 11:50 | XMS ---
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 Kari has no Care Guidelines for this patient. Miles VISIT COUNT (12 MO.) 2 [facility] 1 [facility] TOTAL 3 NOTE: Visits indicate total known visits. ED/C VISIT TRACKING (12 MO.) 06/30/2019 11:47 [facility] [place] TYPE: Emergency COMPLAINT: - L FOOT PAIN 12/04/2018 10:52 [facility] Sak[facility] AGUILA TYPE: Emergency DIAGNOSES: - Right upper quadrant pain - Abdominal Pain - Other specified diseases of biliary tract - Calculus of bile duct without cholangitis or cholecystitis wi 11/16/2018 14:19 [facility] TYPE: Emergency DIAGNOSES: - Other acute postprocedural pain - Post-op Problem - Abdominal Pain INPATIENT VISIT TRACKING (12 MO.) No inpatient visits to display in this time frame [id number]
[2019-06-30] MEDS ORDERED: LEVOTHYROXINE50 MCG PO (12:18)
[2019-06-30] MEDS ORDERED: VENLAFAXINE HCL75 MG PO ×2 (12:20→12:26)
[2019-06-30] MEDS ORDERED: VENTOLIN HFA18 GM INH (12:20)
[2019-06-30] MEDS ORDERED: ATORVASTATIN CA40 MG PO (12:20)
[2019-06-30] MEDS ORDERED: LISINOPRIL10 MG PO (12:21)
[2019-06-30] MEDS ORDERED: ACETAMINOPHEN500 MG PO (12:21)
[2019-06-30] MEDS ORDERED: LIPITOR40 MG PO (12:22)
[2019-06-30] MEDS ORDERED: ARNUITY ELLIPT50 MCG INH (12:23)
[2019-06-30] MEDS ORDERED: NITROSTAT0.4 MG SL (12:23)
[2019-06-30] MEDS ORDERED: ZOFRAN8 MG PO (12:24)
[2019-06-30] MEDS ORDERED: PROTONIX40 MG PO (12:24)
[2019-06-30] MEDS ORDERED: TRAZODONE HCL150 MG PO (12:25)
[2019-06-30] MEDS ORDERED: TRIAMCINOLONE A15 G3 TOP (12:26)
[2019-06-30] MEDS ORDERED: NORCO 5-325 TA1 EACH PO (13:22)
== END 2019-06-30 13:51 | disposition home or self-care (01) ==
LOC: ED 11:43
DX: S92.352A Displaced fracture of fifth metatarsal bone, left foot, initial encounter for closed fracture (principal); F17.200 Nicotine dependence, unspecified, uncomplicated; Z88.0 Allergy status to penicillin; Z88.2 Allergy status to sulfonamides; Z88.5 Allergy status to narcotic agent; Z79.899 Other long term (current) drug therapy; X58.XXXA Exposure to other specified factors, initial encounter
CPT/HCPCS: 73630; 99283-25